=== PATIENT | female | born 1965 | race Caucasian/White ===

== ENCOUNTER 2020-05-18 12:12 | Outpatient (CLI) | payer MEDICARE, MEDICAID, SELFPAY ==
--- NOTE | 2020-05-18 | ECG_ITS ---
Measurements Intervals [place] Rate: 82 P: 71 [place]: 167 QRS: 21 QRSD: 108 T: 42 QT: 357 QTc: 419 Interpretive Statements SINUS RHYTHM INCOMPLETE RIGHT BUNDLE BRANCH BLOCK BASELINE WANDER- V2-V4 BORDERLINE ECG Electronically Signed On 05-18-2020 15:51:04 CDT by Tony Chen D.O.
--- NOTE | ~2020-05-18 | XR_ITS ---
EXAMINATION: XR chest 2V DATE: 05/18/2020 13:50 INDICATION: History of tobacco use TECHNIQUE: PA and lateral views of the chest are obtained. COMPARISON: 04/03/2016 FINDINGS: There are minimal airspace opacities of the left lower lobe. No pleural effusion is identif ied. There is no pneumothorax. The cardiomediastinal silhouette is normal. The visualized bones and s oft tissues are unremarkable. IMPRESSION: 1. Minimal airspace opacities left lung base, consistent with atelectasis versus pneumonia. Reviewed, dictated and finalized at location B. IMPRESSION: 1. Minimal airspace opacities left lung base, consistent with atelectasis versu s pneumonia.
== END 2020-05-18 12:13 | disposition home or self-care (01) ==
LOC: ANHCARD 12:20
PROVIDERS: PCP Physician Assistant; Visit Provider Physician Assistant
DX: Z01.818 Encounter for other preprocedural examination (principal); R91.8 Other nonspecific abnormal finding of lung field; I45.10 Unspecified right bundle-branch block
CPT/HCPCS: 71046; 93005

== ENCOUNTER 2022-04-18 06:25 | Inpatient (IN) | payer MEDICARE, MEDICAID, SELFPAY ==
[2022-04-18] VITALS (31 sets, daily range): BP systolic 101–198; BP diastolic 27–175; PULSE 88–107; RESP 15–26; TEMP 36.4–37; O2SAT 93–100
--- NOTE | ~2022-04-18 | CT_ITS ---
EXAMINATION: CT brain wo con DATE: 04/18/2022 09:49 INDICATION: Head injury. Overdose. TECHNIQUE: Computed tomography (CT) of the head was performed without intravenous contrast. The mA wa s adjusted according to patient size. Iterative reconstruction technique was employed. Exam dose: 60 5.33 mGy-cm total exam DLP. COMPARISON: 04/07/2018 MRI brain/brainstem 03/28/2016 CT brain FINDINGS: No intracranial mass lesion or hemorrhage or cerebrovascular accident. No midline shift or mass effect. Normal ventricular size. Gregorio-white matter differentiation. No subdural or epidural shania ana. No fracture or bone destruction of the cranial vault. Included paranasal sinuses and the mastoid air cells are normally developed and aerated. IMPRESSION: No significant abnormality Reviewed, dictated and finalized at Location [facility]. Reviewed, dictated and finalized at location B. IMPRESSION: No significant abnormality
--- NOTE | 2022-04-18 06:29 | PC.NURSE ---
Spoke with Emerson at Poison Control . Recommends basic tox levels plus CK level and EKG. States also Benzo's for agitation and seizures. Does not recommends charcoal to be given at this time.
--- NOTE | 2022-04-18 06:34 | ECG_ITS ---
Measurements Intervals [place] Rate: 99 P: 58 [place]: 140 QRS: -9 QRSD: 109 T: 47 QT: 379 QTc: 487 Interpretive Statements SINUS RHYTHM POSSIBLE LEFT ATRIAL ENLARGEMENT [-0.1mV P WAVE IN V1/V2] LOW QRS VOLTAGE IN PRECORDIAL LEADS [QRS DEFLECTION < 1.0 mV IN CHEST LEADS] COMPARED TO ECG 05/18/2020 13:28:45 NO SIGNIFICANT CHANGES Electronically Signed On 04-18-2022 18:18:33 CDT by Pattie Woo M.D.
--- NOTE | 2022-04-18 06:39 | ED.GENADULT ---
HPI - General Adult General Chief complaint: Overdose <Tejas Santana MD - Last Filed: 04/19/22 00:03> Stated complaint: took 60 tylenols <Tejas Santana MD - Last Filed: 04/19/22 00:03> Time Seen by Provider: 04/18/22 06:31 <Tejas Santana MD - Last Filed: 04/19/22 00:03> History of Present Illness HPI narrative: 56-year-old female presents to the emergency department for evaluation for psych eval and for a suspected intentional overdose of Fioricet. Patient states that she took 60 Fioricet because she was having a headache secondary to a ground-level fall. Patient reports she took the Fioricet approximate 1 hour prior to arrival. Butalbital/acetaminophen/caffeine 50/300/40 x 60 pills is 18 G of tylenol. <Tejas Santana MD - Last Filed: 04/19/22 00:03> Related Data Home medications: Home Medications Medication Instructions Recorded Confirmed albuterol sulfate 90 mcg/actuation inhalation 04/18/22 aerosol inhaler benztropine 2 mg tablet mg 04/18/22 buspirone 15 mg tablet mg 04/18/22 zyluflzcxk-clcehunwasjdw-sydjgzux tablet 04/18/22 50 mg-325 mg-40 mg tablet chlorpromazine 200 mg tablet mg 04/18/22 chlorpromazine 25 mg tablet mg 04/18/22 cyclobenzaprine 10 mg tablet mg 04/18/22 desipramine 150 mg tablet mg 04/18/22 ezetimibe 10 mg tablet mg 04/18/22 fluticasone 250 mcg-salmeterol 50 inhalation 04/18/22 mcg/dose blistr powdr for inhalation (Advair Diskus) gabapentin 300 mg capsule mg 04/18/22 hydrocodone 10 mg-acetaminophen tablet 04/18/22 325 mg tablet icosapent ethyl 1 gram capsule g PO 04/18/22 (Vascepa) prazosin 5 mg capsule mg 04/18/22 <Tejas Santana MD - Last Filed: 04/19/22 00:03> Allergies/adverse reactions: Allergies Allergy/AdvReac Type Severity Reaction Status Date / Time amoxicillin [From Augmentin] Allergy Hives Verified 09/27/20 12:50 asenapine [From Saphris] Allergy Hives Verified 09/27/20 12:50 bacitracin Allergy Rash Verified 09/27/20 12:50 [From Neosporin ([id number])] clavulanic acid Allergy Hives Verified 09/27/20 12:50 [From Augmentin] erythromycin base Allergy Hives Verified 09/27/20 12:50 haloperidol [From Haldol] Allergy Swelling Verified 09/27/20 12:50 of Lip/Tongue/Throat latex Allergy Rash Verified 09/27/20 12:50 neomycin Allergy Rash Verified 09/27/20 12:50 [From Neosporin ([id number])] olanzapine [From Zyprexa] Allergy Swelling Verified 09/27/20 12:50 of Lip/Tongue/Throat polymyxin B Allergy Rash Verified 09/27/20 12:50 [From Neosporin ([id number])] risperidone [From Risperdal] Allergy Hives Verified 09/27/20 12:50 tramadol [From Ultram] Allergy Rash Verified 09/27/20 12:50 ciprofloxacin AdvReac Vomiting Verified 09/27/20 12:50 ibuprofen AdvReac Vomiting Verified 09/27/20 12:50 grass Allergy Hives Uncoded 09/27/20 12:50 Steriod AdvReac Agitated Uncoded 09/27/20 12:50 <Tejas Santana MD - Last Filed: 04/19/22 00:03> Review of Systems Review of Systems: ROS unobtainable: Yes unobtainable due to medical condition <Tejas Santana MD - Last Filed: 04/19/22 00:03> [facility] Social History Social History: Social History Smoking packs per day: 2 Smoking cigarettes per day: 40.0 Years smoked: 44 Smoking pack-years: 88.00 Smoking status: Current every day smoker Alcohol intake: unknown Substance use: unknown Substance use type: prescription drug Spiritual care concerns: No <Tejas Santana MD - Last Filed: 04/19/22 00:03> Exam Narrative: APPEARANCE: Patient alert but combative HEAD: normocephalic, atraumatic. EYES: PERRLA/EOMI, conjunctivae clear. NOSE: Normal no drainage EARS:TMS clear with good light reflex. THROAT: Pharynx clear, no exudate. NECK: Supple. No adenopathy, no masses. RESPIRATORY: Airway patent, respirations nonlabored. Clear to auscultation bilaterally, no rales, rhonchi, w
[2022-04-18 06:53] LABS: Basophils Percent Auto 0.3 % (0.2-1.2); Eosinophils Absolute Auto 0.2 K/mm3 (0-0.3); Eosinophils Percent Auto 1.6 % (0-4.4); Hematocrit 41.8 % (37.0-47.0); Hemoglobin 13.3 g/dL (12.0-15.0); Immature Granulocyte Absolute 0.04 K/mm3 (0.00-0.031); Immature Granulocyte Percent A 0.4 % (0-0.5); Lymphocytes Absolute Auto 2.11 K/mm3 (0.9-3.2); Lymphocytes Percent Auto 19.6 % (18.3-44.2); Mean Corpuscular HGB Conc 31.8 g/dl (32-36); Mean Corpuscular Hemoglobin 33.5 pg (26-34); Mean Corpuscular Volume 105.3 fl (80-100); Mean Platelet Volume 9.2 fl (7.4-10.4); Monocytes Percent Auto 8.9 % (2.6-8.5); Neutrophils Absolute Auto 7.5 K/mm3 (1.3-6.7); Neutrophils Percent Auto 69.2 % (45.5-73.1); Platelet Count Result 306 k/mm3 (150-375); Red Blood Count 3.97 M/mm3 (4.2-5.4); Red Cell Distribution Width 15.4 % (11.5-14.5); White Blood Count 10.8 K/mm3 (4.5-10.0)
[2022-04-18 07:04] LABS: Appearance Urine Slightly Cloudy (Clear); Bilirubin Urine 1+ (Negative); Blood Urine Negative (Negative); Color Urine Yellow (Yellow); Glucose Urine UA Negative (Negative); Ketones Urine Negative (Negative); Leukocyte Esterase Ur Negative LEU/UL (Negative); Nitrate Urine Positive (Negative); Protein Urine Negative (Negative); Urobilinogen Urine 0.2 mg/dL (<2.0); pH Urine 6.5 (5.0-9.0)
[2022-04-18 07:05] LABS: Bacteria Urine Trace /hpf; Creatine Kinase 76 U/L (30-135); Mucus Urine Rare /lpf; RBC Urine 0-2 /hpf (0-2)
[2022-04-18 07:05] LABS: Lactic Acid Reflex 1.3 mmol/L (0.7-2.0)
[2022-04-18 07:06] LABS: Add Urine Microscopic? YES
[2022-04-18 07:09] LABS: Amphetamine Screen Urine Negative (Negative); Barbiturate Screen Urine Positive (Negative); Benzodiazepines Screen Urine Negative (Negative); Cannabinoid Screen Urine Negative (Negative); Cocaine Screen Urine Negative (Negative); Methadone Screen Urine Negative (Negative); Opiate Screen Urine Negative (Negative); Phencyclidine Screen Urine Negative (Negative)
[2022-04-18] MEDS: ACETYLCYSTEINE IV 10,500 MG in DEXTROSE 5% IN WATER 200 ML 252.5 MG IVPB (07:18)
[2022-04-18 07:30] LABS: Acetaminophen 42 ug/mL (10-30); Ethanol < 10 mg/dL (<10); Salicylate < 1.0 mg/dL (2-20)
[2022-04-18 07:32] LABS: Alanine Aminotransferase 25 U/L (6-35); Albumin Level 4.1 g/dL (3.5-5.1); Alkaline Phosphatase 101 U/L (38-126); Anion Gap 6 mmol/L (8-16); Aspartate Amino Transferase 29 U/L (14-36); Bilirubin,Total 0.5 mg/dL (0.2-1.3); Blood Urea Nitrogen 12 mg/dL (7-17); Calcium 8.8 mg/dL (8.4-10.2); Carbon Dioxide 28 mmol/L (22-30); Chloride 107 mmol/L (98-107); Estimated CRCL calculation 81 ml/min; Estimated Glomerular Filt Rate > 60; Glucose 106 mg/dL (65-110); Potassium 3.7 mmol/L (3.4-5.0); Sodium 141 mmol/L (137-145)
[2022-04-18 07:41] LABS: SARS-CoV-2 RNA PCR Negative
[2022-04-18] MEDS: LORazepam INJ (*CRX) 2 MG/ML VIAL 1 MG IV PUSH ×2 (07:47→19:47)
[2022-04-18] MEDS: LORazepam INJ (*CRX) 2 MG/ML VIAL IV PUSH ×2 (08:14→23:32)
--- NOTE | 2022-04-18 08:30 | PC.NURSE ---
[facility] verified pt med list and list updated in our system.
--- NOTE | 2022-04-18 08:33 | PC.NURSE ---
Emerson @ Poison Control recommends us to redraw her labs @ 0930 (4 hours from ingestion - tylenol level), and to complete the full 21 hour course of the acetylcysteine.
[2022-04-18 08:36] LABS: Glucose Point of Care 133 mg/dl (65-105)
[2022-04-18] MEDS: chlorproMAZINE HCL INJ 50 MG/2 ML AMP IM ×2 (08:49→22:02)
--- NOTE | 2022-04-18 09:05 | PC.NURSE ---
Bilateral ankle soft restraints removed at this time.
--- NOTE | 2022-04-18 10:06 | PC.NURSE ---
Sister Addie called for an update [phone].
--- NOTE | 2022-04-18 10:32 | PC.NURSE ---
Right Soft wrist restraint removed at this time.
--- NOTE | 2022-04-18 10:41 | PC.NURSE ---
This nurse removed pt left wrist restraint at this time.
[2022-04-18 11:00] LABS: Acetaminophen 12 ug/mL (10-30)
--- NOTE | 2022-04-18 12:04 | ECG_ITS ---
Measurements Intervals [place] Rate: 40 P: [place]: 0 QRS: 114 QRSD: 156 T: -83 QT: 504 QTc: 414 Interpretive Statements SLOW JUNCTIONAL RHYTHM VERSUS SLOW ATRIAL FIBRILLATION FREQUENT PVCS MARKED RIGHT AXIS DEVIATION [QRS AXIS > 100] RIGHT BUNDLE BRANCH BLOCK [120+ ms QRS DURATION, UPRIGHT V1, 40+ ms S IN I/aVL/V4/V5/V6] ST DEVIATION AND MODERATE T-WAVE ABNORMALITY, CONSIDER LATERAL ISCHEMIA [-0.1+ mV T WAVE IN I/aVL/V5/V6] ST DEVIATION AND MODERATE T-WAVE ABNORMALITY, CONSIDER INFERIOR ISCHEMIA [-0.1+ mV T WAVE IN II/aVF] COMPARED TO ECG 04/18/2022 10:15:13 RIGHT BUNDLE-BRANCH BLOCK NOW PRESENT NOTE: THE NAME ON THIS EKG MAY BE MISLABELED. THIS MAY NOT BE THE EKG OF MEERA ANGUIANO, IT APPEARS SIMILAR TO THE EKG OF A DIFFERENT ER PATIENT TODAY. TRIED TO CORRECT THIS ERROR IN THE ER. Electronically Signed On 04-18-2022 18:35:14 CDT by Pattie Woo M.D.
[2022-04-18 13:58] LABS: Alanine Aminotransferase 25 U/L (6-35); Alkaline Phosphatase 81 U/L (38-126); Ammonia 16 umol/L (9-30); Anion Gap 12 mmol/L (8-16); Aspartate Amino Transferase 25 U/L (14-36); Bilirubin,Total 0.6 mg/dL (0.2-1.3); Blood Urea Nitrogen 9 mg/dL (7-17); Calcium 8.8 mg/dL (8.4-10.2); Carbon Dioxide 22 mmol/L (22-30); Chloride 104 mmol/L (98-107); Estimated CRCL calculation 116 ml/min; Estimated Glomerular Filt Rate > 60; Glucose 110 mg/dL (65-110); Phosphorus 2.7 mg/dL (2.5-4.5); Potassium 3.3 mmol/L (3.4-5.0); Sodium 138 mmol/L (137-145)
--- NOTE | 2022-04-18 14:21 | ADMGEN ---
This patient, Mahnaz Oseguera, was admitted to Intensive Care Unit-7. Patient/family oriented to hospital policies and general routines including ID bracelet, bed and alarms, visiting hours, pain management, procedures, bathroom and other care routines, personal items, smoking policy, room service/diet, and visiting hours. Information on how to activate the Rapid Response Team has been discussed. Patient/Family are encouraged to report perceived risks to care and to ask questions if they do not understand what they are told or what they should do.
--- NOTE | 2022-04-18 14:23 | PM.IMHP ---
H&P: HPI History of Present Illness Date/Time: 04/18/22 14:23 Chief Complaint: Tylenol toxicity Narrative: Greater than 45 minute spent reviewing chart, evaluating and treating the patient. 56-year-old female unknown past medical history. Presents with suspected intentional overdose of Fioricet. Patient is currently encephalopathic and unable to provide any history. Per ED documentation, patient states she took 60 pills of Fioricet because she was having a headache secondary to a ground level fall. She reported she took the Fioricet around 5:30 a.m. today. Calculated dose of Tylenol taken was 18 g. In ED, vitals stable. Labs remarkable for white count 10.8. INR 1, normal bicarbonate and no anion gap, normal lactate, normal LFTs. CT head negative for acute intracranial pathology. Patient given 2 doses of NAC. Due to agitation patient was given a total of 3 mg Ativan. Patient seen in the ICU lethargic, however opens eyes to name and follows commands. Review of Systems Review of Systems: Unable to obtain due to encephalopathy PMFSH Social History Social History Smoking packs per day: 2 Smoking cigarettes per day: 40.0 Years smoked: 44 Smoking pack-years: 88.00 Smoking status: Current every day smoker Tobacco type: cigarettes Substance use type: prescription drug Spiritual care concerns: No Meds Home Medications and Allergies Home Medications Medication Instructions Recorded Confirmed Type albuterol sulfate 90 mcg/actuation inhalation 04/18/22 History aerosol inhaler benztropine 2 mg tablet mg 04/18/22 History buspirone 15 mg tablet mg 04/18/22 History tknmdsxsqi-cfjmhywouteia-wufujplx tablet 04/18/22 History 50 mg-325 mg-40 mg tablet chlorpromazine 200 mg tablet mg 04/18/22 History chlorpromazine 25 mg tablet mg 04/18/22 History cyclobenzaprine 10 mg tablet mg 04/18/22 History desipramine 150 mg tablet mg 04/18/22 History ezetimibe 10 mg tablet mg 04/18/22 History fluticasone 250 mcg-salmeterol 50 inhalation 04/18/22 History mcg/dose blistr powdr for inhalation (Advair Diskus) gabapentin 300 mg capsule mg 04/18/22 History hydrocodone 10 mg-acetaminophen tablet 04/18/22 History 325 mg tablet icosapent ethyl 1 gram capsule g PO 04/18/22 History (Vascepa) prazosin 5 mg capsule mg 04/18/22 History Allergies Allergy/AdvReac Type Severity Reaction Status Date / Time amoxicillin [From Augmentin] Allergy Hives Verified 09/27/20 12:50 asenapine [From Saphris] Allergy Hives Verified 09/27/20 12:50 bacitracin Allergy Rash Verified 09/27/20 12:50 [From Neosporin ([id number])] clavulanic acid Allergy Hives Verified 09/27/20 12:50 [From Augmentin] erythromycin base Allergy Hives Verified 09/27/20 12:50 haloperidol [From Haldol] Allergy Swelling Verified 09/27/20 12:50 of Lip/Tongue/Throat latex Allergy Rash Verified 09/27/20 12:50 neomycin Allergy Rash Verified 09/27/20 12:50 [From Neosporin ([id number])] olanzapine [From Zyprexa] Allergy Swelling Verified 09/27/20 12:50 of Lip/Tongue/Throat polymyxin B Allergy Rash Verified 09/27/20 12:50 [From Neosporin ([id number])] risperidone [From Risperdal] Allergy Hives Verified 09/27/20 12:50 tramadol [From Ultram] Allergy Rash Verified 09/27/20 12:50 ciprofloxacin AdvReac Vomiting Verified 09/27/20 12:50 ibuprofen AdvReac Vomiting Verified 09/27/20 12:50 grass Allergy Hives Uncoded 09/27/20 12:50 Steriod AdvReac Agitated Uncoded 09/27/20 12:50 Vital Signs Vital Signs - 24 hr 04/18/22 06:22 04/18/22 06:43 04/18/22 06:45 Temperature 98.0 F Pulse Rate 88 90 Respiratory Rate 18 22 H 16 Blood Pressure 119/70 Pulse Oximetry 97 Oxygen Delivery Room Air 04/18/22 06:47 04/18/22 07:10 04/18/22 07:15 Temperature Pulse Rate 90 89 98 Respiratory Rate 19 24 H 19 Blood Pressure 101/27 L Pulse Oximetry 97 Oxygen D
[2022-04-18] MEDS: POTASSIUM CHLORIDE INJ 40 MEQ in SODIUM CHLORIDE 0.9% IV 500 ML 130 MEQ IVPB (14:41)
[2022-04-18] MEDS: LACTATED RINGERS 1,000 ML 100 ML IV CONT (14:41)
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
[2022-04-19] VITALS (24 sets, daily range): BP systolic 107–146; BP diastolic 62–90; PULSE 67–99; RESP 16–28; TEMP 36.1–36.6; O2SAT 93–100
[2022-04-19] MEDS: dexmedeTOMIDine 400 MCG/100 ML 400 MCG/100 ML BAG IV CONT (00:08)
[2022-04-19] MEDS: SODIUM CHLORIDE 0.9% IV 1,000 ML 100 ML IV CONT ×3 (00:11→19:49)
[2022-04-19 05:01] LABS: Basophils Percent Auto 0.4 % (0.2-1.2); Eosinophils Absolute Auto 0.1 K/mm3 (0-0.3); Eosinophils Percent Auto 1.4 % (0-4.4); Hematocrit 40.6 % (37.0-47.0); Hemoglobin 13.2 g/dL (12.0-15.0); Immature Granulocyte Absolute 0.02 K/mm3 (0.00-0.031); Immature Granulocyte Percent A 0.3 % (0-0.5); Lymphocytes Absolute Auto 2.02 K/mm3 (0.9-3.2); Lymphocytes Percent Auto 25.3 % (18.3-44.2); Mean Corpuscular HGB Conc 32.5 g/dl (32-36); Mean Corpuscular Hemoglobin 34.3 pg (26-34); Mean Corpuscular Volume 105.5 fl (80-100); Mean Platelet Volume 9.3 fl (7.4-10.4); Monocytes Absolute Auto 0.8 K/mm3 (0.1-0.6); Monocytes Percent Auto 9.9 % (2.6-8.5); Neutrophils Percent Auto 62.7 % (45.5-73.1); Platelet Count Result 299 k/mm3 (150-375); Red Blood Count 3.85 M/mm3 (4.2-5.4); Red Cell Distribution Width 15.4 % (11.5-14.5)
[2022-04-19 05:13] LABS: INR 1.1; Prothrombin Time 13.5 Seconds (11.1-14.7)
[2022-04-19 05:14] LABS: Anion Gap 8 mmol/L (8-16); Blood Urea Nitrogen 6 mg/dL (7-17); Calcium 8.8 mg/dL (8.4-10.2); Carbon Dioxide 24 mmol/L (22-30); Chloride 108 mmol/L (98-107); Estimated CRCL calculation 116 ml/min; Estimated Glomerular Filt Rate > 60; Glucose 95 mg/dL (65-110); Potassium 3.6 mmol/L (3.4-5.0); Sodium 140 mmol/L (137-145)
--- NOTE | 2022-04-19 07:47 | PC.NURSE ---
Updated patient's mother on plan of care and patient condition.
[2022-04-19] MEDS: ENOXAPARIN 40 MG/0.4 ML SYRINGE SUB-Q (09:36)
--- NOTE | 2022-04-19 11:24 | PM.IMPN ---
Progress Note: A&P Assessment and Plan (1) Suicide attempt: Code(s): T14.91XA - Suicide attempt, initial encounter Status: Acute (2) Back pain: Code(s): M54.9 - Dorsalgia, unspecified Status: Acute (3) Electrolyte abnormality: Code(s): E87.8 - Other disorders of electrolyte and fluid balance, not elsewhere classified Status: Acute (4) Bipolar mood disorder: Code(s): F31.9 - Bipolar disorder, unspecified Status: Acute (5) Overdose on Tylenol: Code(s): T39.1X1A - Poisoning by 4-Aminophenol derivatives, accidental (unintentional), initial encounter Status: Acute (6) Agitation: Code(s): R45.1 - Restlessness and agitation Status: Acute Plan 04/18/22 Acetaminophen overdose -unclear if this was truly a suicidal ideation.? Unable to obtain medical history from patient, however reviewing her medications in the chart appears patient does have some psychiatric issues.? Post 2 doses of NAC.? LFTs normal, PT INR normal.? Continue to monitor in ICU Encephalopathy -suspect secondary to Ativan use.? Hold off on further sedating medications for now.? Haldol for agitation if needed.? Ammonia normal 04/19/22 patient remains in ICU Consult psych Continue Precedex drip per short filler bunch machine operator Recommendations appreciated Subjective Date/time seen: 04/19/22 11:24 Patient lying in bed speech is garbled on Precedex drip unable to give any meaningful history becomes agitated cursing declines physical examination and refuses to participate in questioning. Review of Systems Review of Systems: ROS unobtainable: Yes unobtainable due to mental status Exam Narrative: GEN: NAD, uncooperative, Agitated HEENT: NCAT, MMM, EOMI Neck: no JVD Ext: moves all, no cyanosis, no clubbing, no edema Neuro: slow cognition, moves all extremities equally Psych: unable to assess Objective Data Vital Signs Vital Signs: Vital Signs - 24 hr 04/18/22 12:00 04/18/22 12:00 04/18/22 12:38 Temperature 98.2 F Pulse Rate 100 99 Respiratory Rate 24 H Blood Pressure 117/69 Pulse Oximetry 96 100 Oxygen Delivery Room Air Oxygen Flow Rate 04/18/22 14:00 04/18/22 16:00 04/18/22 16:00 Temperature 98.6 F Pulse Rate 96 101 H 100 Respiratory Rate 20 23 H Blood Pressure 106/88 106/88 Pulse Oximetry 100 98 Oxygen Delivery Oxygen Flow Rate 04/18/22 16:00 04/18/22 16:00 04/18/22 18:00 Temperature Pulse Rate 100 100 100 Respiratory Rate 23 H Blood Pressure Pulse Oximetry 98 Oxygen Delivery Room Air Oxygen Flow Rate 04/18/22 20:00 04/18/22 20:00 04/18/22 20:00 Temperature 97.5 F L Pulse Rate 104 H 100 106 H Respiratory Rate 23 H 23 H Blood Pressure 125/76 Pulse Oximetry 97 96 Oxygen Delivery Room Air Oxygen Flow Rate 04/18/22 22:00 04/19/22 00:08 04/19/22 00:08 Temperature Pulse Rate 106 H 98 99 Respiratory Rate 28 H 28 H Blood Pressure Pulse Oximetry Oxygen Delivery Oxygen Flow Rate 04/19/22 00:14 04/19/22 00:00 04/19/22 00:37 Temperature 97.7 F Pulse Rate 99 98 82 Respiratory Rate 28 H 28 H 24 H Blood Pressure 127/72 Pulse Oximetry 96 96 Oxygen Delivery Room Air Oxygen Flow Rate 04/19/22 00:00 04/19/22 02:00 04/19/22 02:00 Temperature Pulse Rate 91 84 82 Respiratory Rate 17 Blood Pressure 107/62 Pulse Oximetry 93 Oxygen Delivery Oxygen Flow Rate 04/19/22 03:38 04/19/22 04:00 04/19/22 04:00 Temperature 97.7 F Pulse Rate 85 81 81 Respiratory Rate 16 18 Blood Pressure 121/74 Pulse Oximetry 98 98 Oxygen Delivery Nasal Cannula Oxygen Flow Rate 2 04/19/22 06:00 04/19/22 06:00 04/19/22 07:41 Temperature 97.7 F Pulse Rate 72 69 82 Respiratory Rate 17 24 H Blood Pressure 107/67 116/73 Pulse Oximetry 99 95 Oxygen Delivery Oxygen Flow Rate 04/19/22 07:20 04/19/22 08:00 04/19/22 08:00 Temperature Pulse Rate 8
[2022-04-19] MEDS: dexmedeTOMIDine 400 MCG/100 ML 400 MCG/100 ML BAG 5.31 MCG IV CONT (11:50)
[2022-04-19] MEDS: oxyCODONE HCL (*CRX) 5 MG TAB IR PO ×2 (12:20→21:52)
[2022-04-19 12:40] LABS: Alanine Aminotransferase 24 U/L (6-35); Albumin Level 3.5 g/dL (3.5-5.1); Alkaline Phosphatase 84 U/L (38-126); Aspartate Amino Transferase 34 U/L (14-36); Bilirubin,Total 0.6 mg/dL (0.2-1.3)
--- NOTE | 2022-04-19 12:45 | WPDCNINT ---
Assessment and Plan Assessment and plan (1) Overdose on Tylenol: Code(s): T39.1X1A - Poisoning by 4-Aminophenol derivatives, accidental (unintentional), initial encounter Status: Acute Assessment and Plan: Patient took 60 pills of Fioricet although details are questionable She was treated with course of N acetylcysteine Her LFTs remain normal including ammonia Her INR remained normal Tylenol level has normalized Continue to monitor (2) Suicide attempt: Code(s): T14.91XA - Suicide attempt, initial encounter Status: Acute Assessment and Plan: Sitter at bedside (3) Shoulder pain: Code(s): M25.519 - Pain in unspecified shoulder Status: Acute Assessment and Plan: Chronic pain Check shoulder x-ray P.r.n. oxycodone (4) Bipolar mood disorder: Code(s): F31.9 - Bipolar disorder, unspecified Status: Acute Assessment and Plan: Consult psychiatry (5) Agitation: Code(s): R45.1 - Restlessness and agitation Status: Acute Assessment and Plan: Continue Precedex Avoid benzodiazepine Add Seroquel (6) Electrolyte abnormality: Code(s): E87.8 - Other disorders of electrolyte and fluid balance, not elsewhere classified Status: Acute Assessment and Plan: Replace potassium (7) Urinary tract infection: Code(s): N39.0 - Urinary tract infection, site not specified Status: Acute Assessment and Plan: Check urine culture Start Rocephin Plan DVT prophylaxis -Lovenox Nutrition -advance diet Quirk Sander Consult Note Consult date: 04/19/22 Reason for consult: Agitation, delirium HPI: Mahnaz Oseguera is a 56 year old female with bipolar mood disorder who was admitted on 04/18 for suspected intentional overdose of Fioricet. Patient reported in the ED that she took 60 pills of Fioricet prior to arrival for headache. Patient was started on acetylcysteine for suspected acetaminophen overdose and was admitted to the hospital patient was given Thorazine for agitation. Patient was admitted on the floor and suicidal precaution were placed. Patient was agitated and combative with the staff. Has multiple allergies listed limiting what medications could be given to. Overnight patient who who was combative and agitated requiring 4 point restraints. Hence patient was started on Precedex infusion and transferred to ICU level of care. This morning patient continues to be on Precedex infusion at low rate. She is lot more calm continues to be confused and agitated. She is a poor historian. She admits that she has bipolar mood disorder. Told me that she does want to but she was unable to give any meaningful history about her taking Fioricet. She answers no to most questions when asked about review of systems. She states she wants to see her mom. She is often tearful and starts crying in between the conversation. Patient often became agitated and started using abusive and expletive language. Review of system was only positive for pain in right shoulder and under the time she mentioned the pain is all over her body. She states that she hurt her shoulders many years ago and has had pain in her shoulder since then. All other systems were reviewed and were negative I spoke to patient's mother by phone and she told me that patient had been agitated and argumentative with her for last few days. She did not see her taking all the pills but she did take some pills. She states that she was crawling on dropping the pills on the floor and trying to pick them up and put them in her mouth. She states that she has been fighting with her for last few days about little things. Mother states the patient has attempted suicide in the past by taking drug overdose. Review of Systems Review of Systems: All systems reviewed & are unremarkable except as noted in HPI and below (Limited review of system was obtained as above.) [facility]
--- NOTE | 2022-04-19 19:00 | PC.NURSE ---
Patient yelling out. QUYEN Gustafson entered patient's room to see why patient was yelling. He found patient's hassan in her hand with bulb still inflated with water. He asked patient if he could make sure she wasn't bleeding and patient refused.
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
[2022-04-20] VITALS (17 sets, daily range): BP systolic 100–151; BP diastolic 53–90; PULSE 62–97; RESP 13–22; TEMP 35.8–36.6; O2SAT 96–100
[2022-04-20] MEDS: dexmedeTOMIDine 400 MCG/100 ML 400 MCG/100 ML BAG 7.08 MCG IV CONT (02:29)
--- NOTE | 2022-04-20 04:00 | PC.NURSE ---
Patient stated she needed to go to the bathroom. Attempted to place patient on a bedpan and patient uncooperative and attempting to stand and turn around in bed. Patient belligerent and combative. Patient assisted to lying position by staff. Patient placed on bedpan by nurse. Patient then removed bedpan and urinated on the bed.
--- NOTE | 2022-04-20 04:30 | PC.NURSE ---
Patient yelling out, I'm going to kill you. Patient stated she was going to pee on this RN. Patient unable to be redirected.
[2022-04-20] MEDS: SODIUM CHLORIDE 0.9% IV 1,000 ML 100 ML IV CONT ×2 (05:21→19:07)
--- NOTE | 2022-04-20 08:05 | PM.IMPN ---
Progress Note: A&P Assessment and Plan (1) Suicide attempt: Code(s): T14.91XA - Suicide attempt, initial encounter Status: Acute (2) Back pain: Code(s): M54.9 - Dorsalgia, unspecified Status: Acute (3) Electrolyte abnormality: Code(s): E87.8 - Other disorders of electrolyte and fluid balance, not elsewhere classified Status: Acute (4) Bipolar mood disorder: Code(s): F31.9 - Bipolar disorder, unspecified Status: Acute (5) Overdose on Tylenol: Code(s): T39.1X1A - Poisoning by 4-Aminophenol derivatives, accidental (unintentional), initial encounter Status: Acute (6) Agitation: Code(s): R45.1 - Restlessness and agitation Status: Acute Plan 04/18/22 Acetaminophen overdose -unclear if this was truly a suicidal ideation.? Unable to obtain medical history from patient, however reviewing her medications in the chart appears patient does have some psychiatric issues.? Post 2 doses of NAC.? LFTs normal, PT INR normal.? Continue to monitor in ICU Encephalopathy -suspect secondary to Ativan use.? Hold off on further sedating medications for now.? Haldol for agitation if needed.? Ammonia normal 04/19/22 patient remains in ICU Consult psych Continue Precedex drip per garment presser Recommendations appreciated 04/20/22 off gtt pt requesting more pain meds, this is declined at this time cont oxy PRN waiting for evaluation x dc planning Subjective Date/time seen: 04/20/22 08:05 calmer today but still agitated and crying Exam Narrative: GEN: NAD, intermittently cooperative, Agitated HEENT: NCAT, MMM, EOMI Neck: no JVD Ext: moves all, no cyanosis, no clubbing, no edema Neuro: Cn intact no focal neuro deficits noted Psych: labile affect Objective Data Vital Signs Vital Signs: Vital Signs - 24 hr 04/19/22 10:00 04/19/22 10:00 04/19/22 10:00 Temperature Pulse Rate 81 79 81 Respiratory Rate 16 16 Blood Pressure 128/73 Pulse Oximetry 98 Oxygen Delivery 04/19/22 11:00 04/19/22 11:50 04/19/22 11:58 Temperature Pulse Rate 86 80 80 Respiratory Rate 20 18 24 H Blood Pressure 129/70 Pulse Oximetry 100 Oxygen Delivery 04/19/22 12:00 04/19/22 12:00 04/19/22 14:00 Temperature Pulse Rate 67 79 Respiratory Rate Blood Pressure Pulse Oximetry 100 Oxygen Delivery Room Air 04/19/22 14:00 04/19/22 15:45 04/19/22 16:00 Temperature Pulse Rate 79 73 Respiratory Rate 17 Blood Pressure 146/88 H Pulse Oximetry 95 96 Oxygen Delivery Room Air 04/19/22 16:00 04/19/22 16:00 04/19/22 18:00 Temperature 97.8 F Pulse Rate 75 76 Respiratory Rate 18 Blood Pressure 116/90 Pulse Oximetry 96 97 Oxygen Delivery Room Air 04/19/22 18:00 04/19/22 19:26 04/19/22 20:00 Temperature 97.0 F L Pulse Rate 76 81 71 Respiratory Rate 19 24 H 22 H Blood Pressure 133/75 107/82 Pulse Oximetry 98 96 Oxygen Delivery 04/19/22 19:59 04/19/22 20:00 04/19/22 20:00 Temperature Pulse Rate 75 77 Respiratory Rate 20 Blood Pressure Pulse Oximetry Oxygen Delivery Room Air 04/19/22 22:00 04/19/22 22:00 04/20/22 00:00 Temperature Pulse Rate 81 81 72 Respiratory Rate 19 Blood Pressure 127/77 Pulse Oximetry 99 Oxygen Delivery 04/20/22 00:00 04/20/22 00:00 04/20/22 00:00 Temperature 97.0 F L Pulse Rate 74 74 Respiratory Rate 15 15 Blood Pressure 111/67 Pulse Oximetry Oxygen Delivery Room Air 04/20/22 01:05 04/20/22 02:00 04/20/22 02:00 Temperature Pulse Rate 68 68 68 Respiratory Rate 13 14 Blood Pressure 133/71 Pulse Oximetry 98 Oxygen Delivery 04/20/22 02:29 04/20/22 04:00 04/20/22 04:00 Temperature Pulse Rate 66 89 Respiratory Rate 22 H Blood Pressure Pulse Oximetry Oxygen Delivery Room Air 04/20/22 04:00 04/20/22 06:00 04/20/22 06:00 Temperature 96.5 F L Pulse Rate 90 64
[2022-04-20 08:06] LABS: Basophils Percent Auto 0.3 % (0.2-1.2); Eosinophils Absolute Auto 0.2 K/mm3 (0-0.3); Eosinophils Percent Auto 2.3 % (0-4.4); Hemoglobin 12.8 g/dL (12.0-15.0); Immature Granulocyte Absolute 0.03 K/mm3 (0.00-0.031); Immature Granulocyte Percent A 0.3 % (0-0.5); Lymphocytes Absolute Auto 1.78 K/mm3 (0.9-3.2); Lymphocytes Percent Auto 19.3 % (18.3-44.2); Mean Corpuscular Hemoglobin 33.7 pg (26-34); Mean Corpuscular Volume 105.3 fl (80-100); Mean Platelet Volume 9.2 fl (7.4-10.4); Monocytes Absolute Auto 0.9 K/mm3 (0.1-0.6); Monocytes Percent Auto 10.1 % (2.6-8.5); Neutrophils Absolute Auto 6.2 K/mm3 (1.3-6.7); Neutrophils Percent Auto 67.7 % (45.5-73.1); Platelet Count Result 286 k/mm3 (150-375); White Blood Count 9.2 K/mm3 (4.5-10.0)
[2022-04-20 08:15] LABS: Anion Gap 11 mmol/L (8-16); Blood Urea Nitrogen 8 mg/dL (7-17); Carbon Dioxide 18 mmol/L (22-30); Chloride 106 mmol/L (98-107); Estimated CRCL calculation 116 ml/min; Estimated Glomerular Filt Rate > 60; Glucose 76 mg/dL (65-110); Potassium 3.4 mmol/L (3.4-5.0); Sodium 135 mmol/L (137-145)
[2022-04-20 08:17] LABS: Prothrombin Time 13.1 Seconds (11.1-14.7)
[2022-04-20 08:19] LABS: Platelet Estimate Adequate (Adequate)
[2022-04-20 08:20] LABS: Anisocytosis 1+ (NORMAL); Atypical Lymphocytes Present; Macrocytosis 1+ (NORMAL)
[2022-04-20 08:43] LABS: Alanine Aminotransferase 23 U/L (6-35); Albumin Level 3.7 g/dL (3.5-5.1); Alkaline Phosphatase 97 U/L (38-126); Anion Gap 12 mmol/L (8-16); Aspartate Amino Transferase 37 U/L (14-36); Bilirubin,Total 0.7 mg/dL (0.2-1.3); Blood Urea Nitrogen 8 mg/dL (7-17); Calcium 8.7 mg/dL (8.4-10.2); Carbon Dioxide 18 mmol/L (22-30); Chloride 108 mmol/L (98-107); Estimated CRCL calculation 95 ml/min; Estimated Glomerular Filt Rate > 60; Glucose 77 mg/dL (65-110); Magnesium 1.8 mg/dL (1.6-2.3); Potassium 3.5 mmol/L (3.4-5.0); Sodium 138 mmol/L (137-145)
[2022-04-20] MEDS: ENOXAPARIN 40 MG/0.4 ML SYRINGE SUB-Q (09:40)
[2022-04-20] MEDS: oxyCODONE HCL (*CRX) 5 MG TAB IR PO ×4 (09:40→23:46)
[2022-04-20] MEDS: QUEtiapine FUMARATE 25 MG TABLET PO (09:40)
--- NOTE | 2022-04-20 11:24 | WPDINTPN ---
Progress Note: A&P Assessment and Plan (1) Overdose on Tylenol: Code(s): T39.1X1A - Poisoning by 4-Aminophenol derivatives, accidental (unintentional), initial encounter Status: Acute Assessment and Plan: Patient took 60 pills of Fioricet although details are questionable She was treated with course of N acetylcysteine Her LFTs remain normal including ammonia. Repeat labs today remained in normal range Her INR remained normal Tylenol level has normalized Continue to monitor (2) Suicide attempt: Code(s): T14.91XA - Suicide attempt, initial encounter Status: Acute Assessment and Plan: Sitter at bedside (3) Shoulder pain: Code(s): M25.519 - Pain in unspecified shoulder Status: Acute Assessment and Plan: Chronic pain I had ordered a shoulder x-ray but patient refused Continue P.r.n. oxycodone (4) Bipolar mood disorder: Code(s): F31.9 - Bipolar disorder, unspecified Status: Acute Assessment and Plan: I spoke to Dr. Santizo with Psychiatry. Patient is on multiple psychiatric medications including antipsychotics. He will evaluate patient today. I suspect patient will need inpatient psychiatric care. Records requested from her outpatient psychiatric provider (5) Agitation: Code(s): R45.1 - Restlessness and agitation Status: Acute Assessment and Plan: Precedex has been weaned off this morning. Will continue to monitor Avoid benzodiazepine I had ordered Seroquel but patient refused to take it last night (6) Electrolyte abnormality: Code(s): E87.8 - Other disorders of electrolyte and fluid balance, not elsewhere classified Status: Acute Assessment and Plan: Replace potassium (7) Urinary tract infection: Code(s): N39.0 - Urinary tract infection, site not specified Status: Acute Assessment and Plan: Pending urine culture Continue Rocephin. Will continue IV antibiotics until patient can consistently take p.o. pills Plan DVT prophylaxis -Lovenox Nutrition -regular diet Subjective Date/time seen: 04/20/22 11:24 Patient seen and examined this morning she is uncooperative. She states she feels she is in held, wants to and complains of pain all over the body. She refused x-ray of her shoulder she states she wants us to x-ray her all her body because she hurts all over her body. She refused some of her medication last night. Picks and chooses what she wants to take and refuses other pills. She is eating diet. Sitter is at bedside. Pulled out her Rich catheter. Was pulling on IVs hence had to be restrained. Unable to obtain any review of systems. Review of Systems Review of Systems: All systems reviewed & are unremarkable except as noted in HPI and below (Limited review of system was obtained as above.) Exam Narrative: General: Pt is alert awake and in NAD, poor hygiene Lungs/Chest: Trachea central Clear BS B/L, No crackles or wheezing. Cardiac: RRR. Normal S1 S2. No murmurs Circulation: Pedal pulses are intact and symmetrical. Abdomen: Normal bowel sounds.. Soft. NT. ND. Extremities: No clubbing, cyanosis or edema. Warm : Rich in place Neurologic: Awake Follows commands. Moves all 4 extremities PERRL AO x 0 not fully cooperative with exam Skin: No Rash Objective Data Vital Signs Vital Signs: Vital Signs - 24 hr 04/19/22 11:50 04/19/22 11:58 04/19/22 12:00 Temperature Pulse Rate 80 80 Respiratory Rate 18 24 H Blood Pressure 129/70 Pulse Oximetry 100 100 Oxygen Delivery Room Air 04/19/22 12:00 04/19/22 14:00 04/19/22 14:00 Temperature Pulse Rate 67 79 79 Respiratory Rate 17 Blood Pressure 146/88 H Pulse Oximetry 95 Oxygen Delivery 04/19/22 15:45 04/19/22 16:00 04/19/22 16:00 Temperature Pulse Rate 73 Respiratory Rate Blood Pressure Pulse Oximetry 96 96 Oxygen Delivery Room Air Room Air 04/19/22 16:00 04/19/22
--- NOTE | 2022-04-20 20:47 | WPDCNPSYCH ---
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 q.h.s.. She was also taking in addition to her Fioricet, hydrocodone both of which could have a potential drug drug interaction with the cyclobenzaprine. The patient's delirium seems to be clearing. The patient has a long history of multiple overdoses and has required in the past ventilatory support following an overdose she is also required hemodialysis after overdosing on lithium. She is at high risk of overdosing. Consequently, tricyclic antidepressants such as desipramine 300mg p.o. q.h.s. will be avoided. The patient reports a long history of bipolar disorder. However at time of interview insufficient evidence to support bipolar diagnosis is present. However her history of having been treated with lithium, Depakote, Tegretol, Lamictal, and Seroquel would be strongly suggestive that bipolar disorder should remain high in the differential diagnosis. The patient will be started on sertraline 25mg p.o. q.a.m. for her mixed anxious depressive disorder. When patient is discharged to home, her medications will be ordered in 7 days amounts with frequent refills. Avoiding prescribing medications and 90 day amounts will be strongly encouraged. Some of the patient's agitation may have also included an opiate withdrawal syndrome. She seems comparatively free of any withdrawal symptoms at time of interview. However she is also using oxycodone at this time. Future use of Suboxone for maintenance treatment of her opiate use disorder as well as for pain management will be considered. Until then, her drugs will be allowed to wash out and will undergo additional medical evaluation and management after which the patient should be transferred to [facility] inpatient Psychiatric Unit on my service. Plan: 1. Continue to allow the drugs to washout. As well as to continue medical evaluation and management 2. Transferred to inpatient psychiatric service of Dr. Santizo at [facility] when medically cleared for management of her mixed anxious/depressive syndrome. 3. Sertraline (Zoloft) 25mg p.o. q.a.m. for the target symptom of her mixed anxious depressive syndrome with a target dose of 50mg p.o. q.a.m. 4. Thorazine 100mg p.o. q.h.s. will be resumed from her home medication list. Her target symptom will be agitation. According to her veterinary poultry inspector report the patient had disorganized speech and likely was having a formal thought disorder of psychosis. Patient reports having been on most psychiatric medicines and having an intolerance for most anti psychotics. 5. Medical evaluation 6. Care coordination consultation to liaison patient is transferred [facility] when medically cleared. Reason for hospitalization: Patient is a 37-year-old lady admitted to the intensive care unit following an overdose on 64 tablets of Fioricet. Reason for Psychiatric consultation: Patient is a 37-year-old lady who psychiatric consultation for overdose on Fioricet, disorganized speech, and agitated delirium. History of present illness: Nurses report: The patient's delirium has improved markedly. She has become lucid and conversational. Her cognitive capacity has improved well. She is no longer agitated and has no evidence of psychosis. Quality: The patient states she does not remember what happened. She has been told from various sour
[2022-04-20] MEDS: chlorproMAZINE HCL 25 MG TABLET 100 MG PO (22:59)
[2022-04-21] VITALS (9 sets, daily range): BP systolic 108–133; BP diastolic 61–82; PULSE 81–90; RESP 13–25; TEMP 36.6–36.8; O2SAT 97–100
[2022-04-21] MEDS: oxyCODONE HCL (*CRX) 5 MG TAB IR PO ×4 (04:09→16:29)
[2022-04-21 04:22] LABS: Hemoglobin 12.1 g/dL (12.0-15.0); Mean Corpuscular HGB Conc 32.7 g/dl (32-36); Mean Corpuscular Hemoglobin 33.5 pg (26-34); Mean Corpuscular Volume 102.5 fl (80-100); Mean Platelet Volume 9.2 fl (7.4-10.4); Platelet Count Result 307 k/mm3 (150-375); Red Blood Count 3.61 M/mm3 (4.2-5.4); White Blood Count 7.1 K/mm3 (4.5-10.0)
[2022-04-21] MEDS: SODIUM CHLORIDE 0.9% IV 1,000 ML 100 ML IV CONT (04:22)
[2022-04-21 04:33] LABS: Cholesterol 194 mg/dL (0-200); HDL Direct 40 mg/dL; Magnesium 1.9 mg/dL (1.6-2.3); Triglycerides 143 mg/dL (<150)
[2022-04-21 04:44] LABS: LDL Cholesterol Direct 100 mg/dL
[2022-04-21 05:02] LABS: Vitamin D 25 Hydroxy 55.5 ng/mL
[2022-04-21 05:16] LABS: Hepatitis B Surface Antigen Negative (Negative)
[2022-04-21 05:22] LABS: HAV RESULT Negative (Negative); Hepatitis B Core IgM Result Negative (Negative)
[2022-04-21 05:29] LABS: HIV 1/2 Ab P24 Ag Result Negative (Negative)
[2022-04-21 05:40] LABS: Folic Acid 4.9 ng/mL (2.76->20)
[2022-04-21 06:01] LABS: Hepatitis C Virus Antibody Reactive (Negative)
--- NOTE | 2022-04-21 08:31 | WPDINTPN ---
Progress Note: A&P Assessment and Plan (1) Overdose on Tylenol: Code(s): T39.1X1A - Poisoning by 4-Aminophenol derivatives, accidental (unintentional), initial encounter Status: Acute Assessment and Plan: Patient took 60 pills of Fioricet although details are questionable She was treated with course of N acetylcysteine Her LFTs remain normal including ammonia. Repeat labs today remained in normal range Her INR remained normal Tylenol level has normalized Continue to monitor Discontinue IV fluid (2) Suicide attempt: Code(s): T14.91XA - Suicide attempt, initial encounter Status: Acute Assessment and Plan: Sitter at bedside Patient will be going to inpatient psychiatry upon discharge (3) Shoulder pain: Code(s): M25.519 - Pain in unspecified shoulder Status: Acute Assessment and Plan: Chronic pain I had ordered a shoulder x-ray but patient refused Continue P.r.n. oxycodone (4) Bipolar mood disorder: Code(s): F31.9 - Bipolar disorder, unspecified Status: Acute Assessment and Plan: Patient was evaluated by Dr. Santizo with Psychiatry. He has started patient on chlorpromazine and Zoloft Patient will be going for patient's psychiatric treatment upon discharge Continue sitter at bedside (5) Agitation: Code(s): R45.1 - Restlessness and agitation Status: Acute Assessment and Plan: Precedex has been weaned off this morning. Will continue to monitor (6) Electrolyte abnormality: Code(s): E87.8 - Other disorders of electrolyte and fluid balance, not elsewhere classified Status: Acute Assessment and Plan: Replace potassium (7) Urinary tract infection: Code(s): N39.0 - Urinary tract infection, site not specified Status: Acute Assessment and Plan: Negative urine culture She will complete a course of Rocephin after today's Plan DVT prophylaxis -Lovenox Nutrition -regular diet Incentive spirometry Up in chair Transfer out of ICU today Subjective Date/time seen: 04/21/22 Patient appears much more calm and appropriate this morning. She states that she has pain all over her body. She denies any other complaint. She states that she did had some dysuria at home Patient denies fever, chest pain, shortness of breath, cough, nausea vomiting, abdominal pain,, diarrhea, headache or constipation.. All other systems were reviewed and were negative. She did not required any Precedex infusion since yesterday and has not required any restraints overnight. She was evaluated by Psychiatry and her medications were adjusted Other vital signs are stable She is on room air Sitter is at bedside Review of Systems Review of Systems: All systems reviewed & are unremarkable except as noted in HPI and below (Limited review of system was obtained as above.) Exam Narrative: General: Pt is alert awake and in NAD, poor hygiene Lungs/Chest: Trachea central Clear BS B/L, No crackles or wheezing. Cardiac: RRR. Normal S1 S2. No murmurs Circulation: Pedal pulses are intact and symmetrical. Abdomen: Normal bowel sounds.. Soft. NT. ND. Extremities: No clubbing, cyanosis or edema. Warm : Rich in place Neurologic: Awake Follows commands. Moves all 4 extremities PERRL AO x2 Skin: No Rash Objective Data Vital Signs Vital Signs: Vital Signs - 24 hr 04/20/22 08:38 04/20/22 10:00 04/20/22 12:00 Temperature 36.4 C 36.6 C Pulse Rate 73 82 90 Respiratory Rate 15 15 18 Blood Pressure 137/73 141/84 H Pulse Oximetry 99 100 Oxygen Delivery 04/20/22 12:00 04/20/22 10:00 04/20/22 12:00 Temperature Pulse Rate 78 97 Respiratory Rate Blood Pressure Pulse Oximetry 100 Oxygen Delivery Room Air 04/20/22 14:00 04/20/22 14:00 04/20/22 16:00 Temperature 36.2 C L Pulse Rate 86 92 94 Respiratory Rate 18 Blood Pressure 151/83 H Pulse Oximetry 100 Oxygen Delivery 04/20/22 16:00
[2022-04-21] MEDS: POTASSIUM CHLORIDE 20 MEQ TABLET 40 MEQ PO (08:34)
[2022-04-21] MEDS: ENOXAPARIN 40 MG/0.4 ML SYRINGE SUB-Q (08:35)
[2022-04-21] MEDS: SERTRALINE HCL 25 MG TABLET PO (08:36)
--- NOTE | 2022-04-21 15:46 | PM.DS ---
DS: Admitting Diagnosis Discharge Date 04/21/22 Admitting Diagnosis Tylenol OD Toxic Encephalopathy DS: Discharge Diagnosis Discharge Diagnosis (1) Suicide attempt: Code(s): T14.91XA - Suicide attempt, initial encounter Status: Acute (2) Back pain: Code(s): M54.9 - Dorsalgia, unspecified Status: Acute (3) Electrolyte abnormality: Code(s): E87.8 - Other disorders of electrolyte and fluid balance, not elsewhere classified Status: Acute (4) Shoulder pain: Code(s): M25.519 - Pain in unspecified shoulder Status: Acute (5) Bipolar mood disorder: Code(s): F31.9 - Bipolar disorder, unspecified Status: Acute (6) Overdose on Tylenol: Code(s): T39.1X1A - Poisoning by 4-Aminophenol derivatives, accidental (unintentional), initial encounter Status: Acute (7) Agitation: Code(s): R45.1 - Restlessness and agitation Status: Acute (8) Altered mental status: Code(s): R41.82 - Altered mental status, unspecified Status: Acute (9) Urinary tract infection, site not specified: Code(s): N39.0 - Urinary tract infection, site not specified Status: Acute (10) Toxic metabolic encephalopathy: Code(s): G92.8 - Other toxic encephalopathy Status: Acute DS: Summary Hospital Course Reason for hospitalization: Suicide attempt Hospital Course: 56-year-old female admitted to ICU after suspected Tylenol overdose by consuming Fioricet (Tylenol containing product). Labs were not consistent with patient's reported quantity of ingestion, fortunately. She was monitored in the ICU and treated by standard Tylenol overdose protocol. Her liver enzymes and renal function are normal at the time discharge, and she is discharged in stable condition to inpatient psychiatric unit for ongoing care. 04/18/22 Acetaminophen overdose (as Fiorecet) -unclear if this was truly a suicidal ideation.? Unable to obtain medical history from patient, however reviewing her medications in the chart appears patient does have some psychiatric issues.? Post 2 doses of NAC.? LFTs normal, PT INR normal.? Continue to monitor in ICU Encephalopathy -suspect secondary to Ativan use.? Hold off on further sedating medications for now.? Haldol for agitation if needed.? Ammonia normal 04/19/22 ?patient remains in ICU Consult psych Continue Precedex drip per insurance follow up rep Recommendations appreciated 04/20/22 off gtt pt requesting more pain meds, this is declined at this time cont oxy PRN waiting for evaluation x dc planning 04/21/22 seen by Psychiatry and inpt admission recommended pt is accepted to [facility] for inpt psychiatric care discharge in stable condition on RA w normal liver and renal fxn hepatitis C and Syphilis study results pending pt without opiates in her system per [facility] at admission. Will dc on Ibuprofen w Famotidine to prevent stomach irritation, to be taken with food. Status at Discharge Functional status at discharge: independent ambulation Time Spent with Patient Time attestation: Total time spent providing and/or coordinating discharge services: Time spent: Greater than 30 minutes Exam Narrative: General: NAD, poor hygiene Awake Follows commands. Lungs/Chest: Trachea central Clear BS B/L, No crackles or wheezing. Cardiac: RRR. Normal S1 S2. No murmurs Extremities: No clubbing, cyanosis or edema. Warm. sits up bearing all of her weight on LUE without difficulty or pain Neurologic: Moves all 4 extremities CN intact no focal motor deficits appreciated Skin: No Rash DS: Data Data Completed and Pending Labs on day of discharge: Labs from last 24 hours 04/21/22 04/21/22 04/21/22 04:16 04:16 04:16 WBC 7.1 RBC 3.61 L Hgb 12.1 Hct 37.0 MCV 102.5 H MCH 33.5 MCHC 32.7 RDW 15.0 H Plt Count 307 MPV 9.2 Magnesium 1.9 Triglycerides 143 Cholesterol 194 LDL Cholesterol Direct
--- NOTE | 2022-04-21 16:14 | PC.NURSE ---
Report given to Nurse Moore at [facility] to transfer patient to [id number]
[2022-04-23 07:51] LABS: Rapid Plasma Reagin Non-Reactive (NonReactive)
== END 2022-04-21 19:30 | disposition other institution (70) | DRG 917 ==
LOC: ANHED 07:51 → ANHICU 18:17
PROVIDERS: Emergency Medicine; Internal Medicine; Psychiatry & Neurology Psychiatry; Admitting Provider Chiropractor; Emergency Provider Emergency Medicine; Visit Provider Hospitalist
DX: T39.1X1A Poisoning by 4-Aminophenol derivatives, accidental (unintentional), initial encounter (principal); G92.8 Other toxic encephalopathy; N39.0 Urinary tract infection, site not specified; E87.8 Other disorders of electrolyte and fluid balance, not elsewhere classified; E78.5 Hyperlipidemia, unspecified; M54.9 Dorsalgia, unspecified; M25.519 Pain in unspecified shoulder; G89.29 Other chronic pain; F31.9 Bipolar disorder, unspecified; F11.90 Opioid use, unspecified, uncomplicated; F17.210 Nicotine dependence, cigarettes, uncomplicated; Z20.822 Contact with and (suspected) exposure to COVID-19; Z90.710 Acquired absence of both cervix and uterus
CPT/HCPCS: 36415; 51702; 70450; 80048; 80053; 80061; 80074; 80076; 80307; 81001; 82140; 82306; 82550; 82607; 82746; 82948; 83605; 83735; 84100; 84443; 85025; 85027; 85610; 86592; 86703; 87086; 87088; 87522; 93005; 96365; 96366; 96367; 96372; 96375; 96376; 99285; A9270; C9803; G0378; G0432; J0132; J0696; J1650; J2060; J3230; J3480; J7030; J7040; J7060; J7120; U0003; U0005

== ENCOUNTER 2022-09-22 12:05 | Emergency (ER) | payer MEDICARE, MEDICAID, SELFPAY ==
--- NOTE | ~2022-09-22 | CT_ITS ---
EXAMINATION: CT cervical spine wo con DATE: 09/22/2022 13:56 INDICATION: Head injury TECHNIQUE: Computed tomography (CT) of the cervical spine was performed without intravenous contrast. The dose-length product (DLP) was 246.48 mGy-cm. Automated exposure control and iterative reconstruc tion technique were employed. COMPARISON: 07/25/2011 FINDINGS: Motion artifact significantly limits evaluation of the mid/lower the odontoid process is in tact. Cervical spine. Bone alignment is grossly normal. There is severe loss of intervertebral disc s pace height at C5-6 and C6-7. No definite fracture is identified. There is multilevel moderate to sev ere facet and uncovertebral joint osteoarthritis. IMPRESSION: 1. Grossly no cervical spine fracture. Motion artifact renders images of the mid/lower cervical spine uninterpretable. If there is high clinical suspicion for cervical spine fracture. Repeat CT is recom mended. Reviewed, dictated and finalized at location F. WORKER FOREMAN IMPRESSION: 1. Grossly no cervical spine fracture. Motion artifact renders images of the mi d/lower cervical spine uninterpretable. If there is high clinical suspicion for cervical spine fracture. Repeat CT is recommended.
--- NOTE | ~2022-09-22 | CT_ITS ---
EXAMINATION: CT brain wo con INDICATION: Transient alteration of awareness COMPARISON: 04/28/2022 TECHNIQUE: Standard unenhanced head CT. The dose-length product (DLP) was 605.33 mGy-cm. The mA was a djusted according to patient size. Iterative reconstruction technique was employed. FINDINGS: There is no intracranial hemorrhage, acute infarction, or abnormal mass lesion. The ventric les are normal. There is no abnormal mass effect or midline shift. The bellamy-white matter differentiat ion is normal. The basal cisterns are patent. The orbits are normal. 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 The paranasal sinuses, mastoids and calvarium are normal. IMPRESSION: 1. No acute intracranial abnormality. Reviewed, dictated and finalized at location F. MILLING MACHINE TENDER
[2022-09-22 12:03] VITALS: BP 109/78; PULSE 78; RESP 18; TEMP 36.4; O2SAT 95
--- NOTE | 2022-09-22 12:06 | ECG_ITS ---
Measurements Intervals [place] Rate: 77 P: 64 MS: 251 QRS: 216 QRSD: 169 T: 43 QT: 455 QTc: 517 Interpretive Statements SINUS RHYTHM WITH FIRST DEGREE AV BLOCK POSSIBLE LEFT ATRIAL ENLARGEMENT RIGHT BUNDLE BRANCH BLOCK LEFT POSTERIOR FASCICULAR BLOCK ABNORMAL ECG COMPARED TO ECG 04/18/2022 12:05:08 SINUS RHYTHM NOW PRESENT FIRST DEGREE AV BLOCK NOW PRESENT Electronically Signed On 09-22-2022 16:09:31 MANAGEMENT AIDE by Tony Chen D.O.
[2022-09-22 12:21] VITALS: PULSE 80
[2022-09-22 12:26] LABS: Basophils Absolute Auto 0.1 K/mm3 (0.0-0.1); Basophils Percent Auto 0.5 % (0.2-1.2); Eosinophils Absolute Auto 0.1 K/mm3 (0-0.3); Eosinophils Percent Auto 0.7 % (0-4.4); Hematocrit 44.9 % (37.0-47.0); Hemoglobin 14.7 g/dL (12.0-15.0); Immature Granulocyte Absolute 0.03 K/mm3 (0.00-0.031); Immature Granulocyte Percent A 0.3 % (0-0.5); Lymphocytes Absolute Auto 1.72 K/mm3 (0.9-3.2); Mean Corpuscular HGB Conc 32.7 g/dl (32-36); Mean Corpuscular Hemoglobin 35.1 pg (26-34); Mean Corpuscular Volume 107.2 fl (80-100); Mean Platelet Volume 9.3 fl (7.4-10.4); Monocytes Absolute Auto 1.2 K/mm3 (0.1-0.6); Monocytes Percent Auto 12.3 % (2.6-8.5); Neutrophils Absolute Auto 6.5 K/mm3 (1.3-6.7); Neutrophils Percent Auto 68.2 % (45.5-73.1); Platelet Count Result 362 k/mm3 (150-375); Red Blood Count 4.19 M/mm3 (4.2-5.4); Red Cell Distribution Width 13.6 % (11.5-14.5); White Blood Count 9.5 K/mm3 (4.5-10.0)
[2022-09-22 12:28] LABS: Add Urine Microscopic? YES; Appearance Urine Slightly Cloudy (Clear); Bilirubin Urine 2+ (Negative); Blood Urine Negative (Negative); Glucose Urine UA Negative (Negative); Ketones Urine Trace mg/dL (Negative); Leukocyte Esterase Ur 1+ LEU/UL (Negative); Nitrate Urine Positive (Negative); Protein Urine 2+ mg/dL (Negative); Specific Grav Ur 1.025 (1.001-1.035); pH Urine 5.5 (5.0-9.0)
[2022-09-22 12:31] LABS: Mucus Urine Rare /lpf; Squamous Epithelial Cell Urine Rare /hpf (Few); WBC Urine 31-50 /hpf
[2022-09-22 12:34] LABS: Alanine Aminotransferase 34 U/L (6-35); Albumin Level 4.8 g/dL (3.5-5.1); Alkaline Phosphatase 98 U/L (38-126); Anion Gap 9 mmol/L (8-16); Aspartate Amino Transferase 52 U/L (14-36); Bilirubin,Total 0.7 mg/dL (0.2-1.3); Blood Urea Nitrogen 14 mg/dL (7-17); Calcium 9.3 mg/dL (8.4-10.2); Carbon Dioxide 27 mmol/L (22-30); Chloride 103 mmol/L (98-107); Estimated CRCL calculation 82 ml/min; Estimated Glomerular Filt Rate > 60; Glucose 81 mg/dL (65-110); Potassium 3.1 mmol/L (3.4-5.0); Sodium 139 mmol/L (137-145)
[2022-09-22 12:35] LABS: Ethanol < 10 mg/dL (<10)
[2022-09-22 12:37] LABS: INR 1.1; Prothrombin Time 13.4 Seconds (11.1-14.7)
[2022-09-22 12:38] LABS: Partial Thromboplastin Time 29.3 SECONDS (22.3-36.8)
[2022-09-22 12:40] LABS: Color Urine Dark Yellow (Yellow)
[2022-09-22 12:46] LABS: Amphetamine Screen Urine Negative (Negative); Barbiturate Screen Urine Positive (Negative); Benzodiazepines Screen Urine Negative (Negative); Cannabinoid Screen Urine Negative (Negative); Cocaine Screen Urine Negative (Negative); Methadone Screen Urine Negative (Negative); Opiate Screen Urine Positive (Negative); Phencyclidine Screen Urine Negative (Negative)
[2022-09-22 13:05] LABS: Acetaminophen < 10 ug/mL (10-30); Salicylate < 1.0 mg/dL (2-20)
[2022-09-22 13:21] VITALS: BP 116/75; PULSE 76; RESP 14; O2SAT 98
--- NOTE | 2022-09-22 13:28 | PC.NURSE ---
Patient refusing to answer any questions or take any medications at this time. EDP aware of patient condition.
--- NOTE | 2022-09-22 13:37 | ED.AMS ---
HPI - Altered Mental Status General Chief Complaint: Altered Mental Status Stated Complaint: Altered Mental Status Time Seen by Provider: 09/22/22 12:19 History of Present Illness HPI narrative: 57-year-old female presenting the emergency department for evaluation of altered mental status. Patient does admit to taking Soma and [place] for the intended of getting high . Patient denies any intent of self-harm. Patient's mother found the patient morning for help after a fall and was unsure of what the patient had ingested. Upon arrival to the emergency department patient was able to give details on what medication she took. Related Data Home Medications Medication Instructions Recorded Confirmed albuterol sulfate 90 mcg/actuation 2 puff inhalation TID PRN SOB 04/18/22 04/19/22 aerosol inhaler benztropine 2 mg tablet 2 mg PO QAM AND QPM 04/18/22 04/19/22 [id number] 1 tablet PO Q8H PRN Pain 04/18/22 04/19/22 50 mg-325 mg-40 mg tablet ezetimibe 10 mg tablet 10 mg PO DAILY 04/18/22 04/19/22 fluticasone 250 mcg-salmeterol 50 1 inh inhalation BID 04/18/22 04/19/22 mcg/dose blistr powdr for inhalation (Advair Diskus) gabapentin 300 mg capsule 600 mg PO TID 04/18/22 04/19/22 icosapent ethyl 1 gram capsule 2 g PO BID 04/18/22 04/19/22 (Vascepa) prazosin 5 mg capsule 5 mg PO HS 04/18/22 04/19/22 Allergies Allergy/AdvReac Type Severity Reaction Status Date / Time amoxicillin [From Augmentin] Allergy Hives Verified 09/22/22 12:17 asenapine [From Saphris] Allergy Hives Verified 09/22/22 12:17 bacitracin Allergy Rash Verified 09/22/22 12:17 [From Neosporin ([id number])] clavulanic acid Allergy Hives Verified 09/22/22 12:17 [From Augmentin] erythromycin base Allergy Hives Verified 09/22/22 12:17 haloperidol [From Haldol] Allergy Swelling Verified 09/22/22 12:17 of Lip/Tongue/Throat latex Allergy Rash Verified 09/22/22 12:17 neomycin Allergy Rash Verified 09/22/22 12:17 [From Neosporin ([id number])] olanzapine [From Zyprexa] Allergy Swelling Verified 09/22/22 12:17 of Lip/Tongue/Throat polymyxin B Allergy Rash Verified 09/22/22 12:17 [From Neosporin ([id number])] risperidone [From Risperdal] Allergy Hives Verified 09/22/22 12:17 tramadol [From Ultram] Allergy Rash Verified 09/22/22 12:17 ciprofloxacin AdvReac Vomiting Verified 09/22/22 12:17 ibuprofen AdvReac Vomiting Verified 09/22/22 12:17 grass Allergy Hives Uncoded 09/27/20 12:50 Steriod AdvReac Agitated Uncoded 09/27/20 12:50 Review of Systems Review of Systems: CONSTITUTIONAL: See HPI EYES: Denies visual changes, redness, or discharge. ENT: Denies rhinorrhea, congestion, sore throat, or otalgia. CARDIOVASCULAR: Denies chest pain, palpitations, or edema. RESPIRATORY: Denies cough or dyspnea. GASTROINTESTINAL: Denies abdominal pain, nausea, vomiting, or diarrhea. GENITOURINARY: Denies dysuria or hematuria. SKIN: Denies rash or itching. MUSCULOSKELETAL: Denies back pain, joint pain, or myalgia. NEUROLOGIC: Denies headache, numbness, or weakness. PSYCHIATRIC: See HPI PMFSH Past Medical History Medical History (Updated 09/22/22 @ 18:31 by Tejas Santana MD) Back pain Bipolar mood disorder Drug overdose Suicide attempt Surgical History Surgical History (Updated 04/19/22 @ 13:28 by Mono Gay MD) H/O: hysterectomy History of back surgery Social History Social History Smoking packs per day: 2 Smoking cigarettes per day: 40.0 Years smoked: 44 Smoking pack-years: 88.00 Smoking status: Current every day smoker Alcohol intake: unknown Substance use: unknown Substance use type: prescription drug Spiritual care concerns: No Exam Narrative: APPEARANCE: Well appearing, no pain, no distress, well-nourished. HEAD: normocephalic, atraumatic. EYES: PERRLA/EOMI, conjunctivae clear. NOSE: Normal no drainage EARS:TMS clear with good l
--- NOTE | 2022-09-22 14:00 | PC.NURSE ---
Poison Controlled at this time per EDP request. Poison control requires AST/ALT to be checking again 6 hours after initial draw. Patient took soma (muscle relaxers) and [place] but unknown doses and unknown time.
[2022-09-22] MEDS: NALOXONE HCL INJ 2 MG/2 ML AMP 1 MG IV PUSH (15:09)
[2022-09-22 15:12] VITALS: BP 118/71; PULSE 75; RESP 14; O2SAT 95
[2022-09-22] MEDS: NITROFURANTOIN MONOHYD MACROCR 100 MG CAP PO (15:48)
[2022-09-22 16:39] VITALS: BP 118/74; PULSE 73; RESP 16; O2SAT 98
[2022-09-22 17:33] VITALS: BP 118/86; PULSE 75; RESP 21; O2SAT 98
[2022-09-22 17:58] LABS: Alanine Aminotransferase 33 U/L (6-35); Albumin Level 4.4 g/dL (3.5-5.1); Alkaline Phosphatase 84 U/L (38-126); Anion Gap 7 mmol/L (8-16); Aspartate Amino Transferase 44 U/L (14-36); Bilirubin,Total 0.5 mg/dL (0.2-1.3); Blood Urea Nitrogen 14 mg/dL (7-17); Calcium 9.1 mg/dL (8.4-10.2); Carbon Dioxide 31 mmol/L (22-30); Chloride 100 mmol/L (98-107); Estimated CRCL calculation 71 ml/min; Estimated Glomerular Filt Rate > 60; Glucose 111 mg/dL (65-110); Potassium 3.1 mmol/L (3.4-5.0); Sodium 138 mmol/L (137-145)
--- NOTE | 2022-09-22 18:32 | PC.NURSE ---
Patient walked without difficulty and in no distress around ED.
== END 2022-09-22 18:54 | disposition home or self-care (01) ==
PROVIDERS: Emergency Medicine; Emergency Provider Emergency Medicine; PCP Internal Medicine Gastroenterology
DX: T42.8X1A Poisoning by antiparkinsonism drugs and other central muscle-tone depressants, accidental (unintentional), initial encounter (principal); F31.9 Bipolar disorder, unspecified; N39.0 Urinary tract infection, site not specified; F17.210 Nicotine dependence, cigarettes, uncomplicated; I44.0 Atrioventricular block, first degree; I45.2 Bifascicular block; R94.31 Abnormal electrocardiogram [ECG] [EKG]; Z90.710 Acquired absence of both cervix and uterus
CPT/HCPCS: 36415; 51701; 70450; 72125; 80053; 80307; 81001; 81025; 85025; 85610; 85730; 87077; 87086; 87186; 93005; 96374; 99284; A9270; J2310

== ENCOUNTER 2023-01-04 15:20 | Emergency (ER) | payer MEDICARE, MEDICAID, SELFPAY ==
--- NOTE | ~2023-01-04 | XR_ITS ---
EXAMINATION: XR knee RT 3V DATE: 01/04/2023 16:18 INDICATION: Right knee injury and pain and swelling. TECHNIQUE: 3 views of right knee were obtained. COMPARISON: Right tibia and fibula radiographs 11/21/2009 FINDINGS: Bone alignment is normal. No fracture. There is mild tricompartmental osteoarthritis. No kn ee joint effusion. IMPRESSION: 1. Mild right knee osteoarthritis. Reviewed, dictated and finalized at location E.
--- NOTE | ~2023-01-04 | XR_ITS ---
EXAMINATION: XR wrist RT min 3V DATE: 01/04/2023 16:18 INDICATION: Right wrist injury and pain and swelling. TECHNIQUE: 4 views of right wrist were obtained. COMPARISON: None. FINDINGS: There is a comminuted fracture of distal radius with involvement of the distal articular grissom rface and distal radioulnar joint. The main distal fracture fragment demonstrates impaction, 1 mm ko carie displacement, and dorsal angulation. There is 1 degree palmar tilt of the distal articular surfac e. Joint spaces are normal. IMPRESSION: 1. Comminuted fracture of distal radius. Reviewed, dictated and finalized at location E.
--- NOTE | ~2023-01-04 | XR_ITS ---
EXAMINATION: XR ankle RT min 3V DATE: 01/04/2023 16:18 INDICATION: Right ankle injury and pain. TECHNIQUE: 4 views of right ankle were obtained. COMPARISON: Right ankle radiographs 11/21/2009 FINDINGS: Bone alignment is normal. Partially visualized is an oblique fracture of distal fibula with medial aspect of the fracture line 7 mm distal to the level of the tibial plafond. Partially visuali zed is an implant at head of first metatarsal. Joint spaces are normal. There is ankle soft tissue sw elling. IMPRESSION: 1. Nondisplaced oblique fracture of lateral malleolus. Reviewed, dictated and finalized at location E.
[2023-01-04 15:43] VITALS: BP 109/67; PULSE 102; RESP 18; TEMP 36.2; O2SAT 100
[2023-01-04 18:45] VITALS: BP 116/69; PULSE 97; RESP 18; TEMP 36.1; O2SAT 99
--- NOTE | 2023-01-04 19:54 | PC.NURSE ---
Friend and pt came up to intake desk and reported that pt was leaving at this time. This nurse recommended to stay for recommendation of imaging. Pt still insistent to leave at this time. Pt ambulatory with steady gait out of ED lobby.
== END 2023-01-04 20:09 | disposition left against medical advice (07) ==
PROVIDERS: Emergency Provider Emergency Medicine; PCP Internal Medicine Gastroenterology
DX: S69.91XA Unspecified injury of right wrist, hand and finger(s), initial encounter (principal)
CPT/HCPCS: 73110; 73562; 73610; 99199

== ENCOUNTER 2023-01-05 13:03 | Emergency (ER) | payer MEDICARE, MEDICAID, SELFPAY ==
--- NOTE | ~2023-01-05 | CT_ITS ---
EXAMINATION: CT brain wo con INDICATION: Head injury COMPARISON: 09/22/2022 TECHNIQUE: Standard unenhanced head CT. The dose-length product (DLP) was 529.67 mGy-cm. The mA was a djusted according to patient size. Iterative reconstruction technique was employed. FINDINGS: There is no intracranial hemorrhage, acute infarction, or abnormal mass lesion. The ventric les are normal. There is no abnormal mass effect or midline shift. The bellamy-white matter differentiat ion is normal. The basal cisterns are patent. The orbits are normal. 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 The paranasal sinuses, mastoids and calvarium are normal. IMPRESSION: 1. No acute intracranial abnormality. Reviewed, dictated and finalized at location A.
--- NOTE | ~2023-01-05 | XR_ITS ---
EXAMINATION: XR hand RT min 3V INDICATION: Right hand pain TECHNIQUE: Three views of the right hand are obtained. COMPARISON: 01/04/2023 FINDINGS: No fracture, dislocation, or subluxation of the hand is identified. Again noted is a commin uted fracture of the distal radius. There is moderate osteoarthritis of multiple interphalangeal join ts. IMPRESSION: 1. No acute osseous abnormality of the hand. Reviewed, dictated and finalized at location A.
--- NOTE | ~2023-01-05 | XR_ITS ---
EXAMINATION: XR foot RT 2V INDICATION: Foot pain and bruising TECHNIQUE: Two views of the right foot are obtained. COMPARISON: 01/04/2023 FINDINGS: The nondisplaced lateral malleolus fracture is better evaluated on the comparison radiograp hs. No acute fracture of the foot is identified. An implant is noted in the head of the first metatar carie. There is mild osteoarthritis of multiple interphalangeal joints. IMPRESSION: 1. No acute osseous abnormality of the foot. Reviewed, dictated and finalized at location A.
[2023-01-05 13:14] VITALS: BP 118/74; PULSE 110; RESP 14; TEMP 36.7; O2SAT 97
--- NOTE | 2023-01-05 13:48 | ED.FALL ---
HPI - Fall General Chief Complaint: Fall <TWILA Barger Last Filed: 01/08/23 09:38> Stated Complaint: wrist and ankle pain <TWILA Barger Last Filed: 01/08/23 09:38> Time Seen by Provider: 01/05/23 13:25 <TWILA Barger Last Filed: 01/08/23 09:38> History of Present Illness HPI Narrative: 57-year-old female with a history of bipolar disorder reports for evaluation of right wrist pain and right ankle pain after a fall that occurred 4 days ago. Patient states she accidentally bumped into a table, because the table to fall and then tripped over the table, landing on her right wrist and right foot. She is unsure if she hit her head. No loss of consciousness. She is complaining of right ankle and foot pain, pain to her right wrist and ecchymosis. Reports taking [place] for pain at home. Denies paresthesias. Denies other acquired injury <TWILA Barger Last Filed: 01/08/23 09:38> Related Data Home Medications: Home Medications Medication Instructions Recorded Confirmed benztropine 2 mg tablet 2 mg PO QAM AND QPM 04/18/22 04/19/22 cygukwxptb-cxcuxtevrqojb-pmslbabj 1 tablet PO Q8H PRN Pain 04/18/22 04/19/22 50 mg-325 mg-40 mg tablet gabapentin 300 mg capsule 600 mg PO TID 04/18/22 04/19/22 prazosin 5 mg capsule 5 mg PO HS 04/18/22 04/19/22 benztropine 2 mg tablet 2 mg PO BID 11/22/22 uyfwukisbm-bsbifocveinre-rfylstdq 1 tablet PO Q8H PRN 11/22/22 50 mg-325 mg-40 mg tablet cyclobenzaprine 10 mg tablet 10 mg PO QHS 11/22/22 desipramine 150 mg tablet 300 mg PO QHS 11/22/22 hydrocodone 10 mg-acetaminophen 1 tablet PO Q8H PRN 11/22/22 325 mg tablet ondansetron HCl 4 mg tablet 4 mg PO Q8H 11/22/22 <TWILA Barger Last Filed: 01/08/23 09:38> Allergies/Adverse Reactions: Allergies Allergy/AdvReac Type Severity Reaction Status Date / Time amoxicillin [From Augmentin] Allergy Hives Verified 01/04/23 15:21 asenapine [From Saphris] Allergy Hives Verified 01/04/23 15:21 bacitracin Allergy Rash Verified 01/04/23 15:21 [From Neosporin ([id number])] clavulanic acid Allergy Hives Verified 01/04/23 15:21 [From Augmentin] erythromycin base Allergy Hives Verified 01/04/23 15:21 haloperidol [From Haldol] Allergy Swelling Verified 01/04/23 15:21 of Lip/Tongue/Throat latex Allergy Rash Verified 01/04/23 15:21 neomycin Allergy Rash Verified 01/04/23 15:21 [From Neosporin ([id number])] olanzapine [From Zyprexa] Allergy Swelling Verified 01/04/23 15:21 of Lip/Tongue/Throat polymyxin B Allergy Rash Verified 01/04/23 15:21 [From Neosporin ([id number])] risperidone [From Risperdal] Allergy Hives Verified 01/04/23 15:21 tramadol [From Ultram] Allergy Rash Verified 01/04/23 15:21 ciprofloxacin AdvReac Vomiting Verified 01/04/23 15:21 ibuprofen AdvReac Vomiting Verified 01/04/23 15:21 grass Allergy Hives Uncoded 01/04/23 15:21 Steriod AdvReac Agitated Uncoded 01/04/23 15:21 <Cathleen Boston PA-C - Last Filed: 01/08/23 09:38> Review of Systems Review of Systems: CONSTITUTIONAL: Denies fever, chills EYES: Denies visual changes, redness, or discharge. ENT: Denies rhinorrhea, congestion, sore throat, or otalgia. CARDIOVASCULAR: Denies chest pain, palpitations, or edema. RESPIRATORY: Denies cough or dyspnea. GASTROINTESTINAL: Denies abdominal pain, nausea, vomiting, or diarrhea. GENITOURINARY: Denies dysuria or hematuria. SKIN: Denies rash or itching. MUSCULOSKELETAL: HPI NEUROLOGIC: Denies headache, numbness, dizziness, or weakness. PSYCHIATRIC: Denies anxiety or depression. <Cathleen Boston PA-C - Last Filed: 01/08/23 09:38> [facility] Past Medical History Medical History: Medical History Anxiety Back pain Bipolar mood disorder Drug overdose Migraine Seizure Suicide attempt <Cathleen Boston,
[2023-01-05] MEDS: HYDROcodone/acetaminophen (*CRX) 10-325 MG TABLET 1 TAB PO (14:04)
[2023-01-05] MEDS: ONDANSETRON HCL ODT 4 MG TABLET PO (15:14)
[2023-01-05] MEDS: MORPHINE SULFATE INJ (*CRX) 10 MG/ML AMP IM (15:14)
--- NOTE | 2023-01-05 15:20 | PC.NURSE ---
Pt refusing splint, states she does not want a slint and shoe fly get out of here
== END 2023-01-05 16:15 | disposition home or self-care (01) ==
PROVIDERS: Emergency Provider Physician Assistant; PCP Internal Medicine Gastroenterology
DX: S52.91XA Unspecified fracture of right forearm, initial encounter for closed fracture (principal); S82.61XA Displaced fracture of lateral malleolus of right fibula, initial encounter for closed fracture; Z90.710 Acquired absence of both cervix and uterus; F17.210 Nicotine dependence, cigarettes, uncomplicated; W18.09XA Striking against other object with subsequent fall, initial encounter
CPT/HCPCS: 29125; 29515; 70450; 73130; 73620; 96372; 99284; A4565; A9270; J2270

== ENCOUNTER 2023-03-02 21:47 | Emergency (ER) | payer MEDICARE, MEDICAID, SELFPAY ==
--- NOTE | ~2023-03-02 | CT_ITS ---
EXAMINATION: CT brain wo con DATE: 03/03/2023 05:01 INDICATION: Fall, head trauma. Altered mental status. TECHNIQUE: Computed tomography (CT) of the head was performed without intravenous contrast. The mA wa s adjusted according to patient size. Iterative reconstruction technique was employed. Exam dose: 12 10.67 mGy-cm total exam DLP. COMPARISON: January 05, 2023 CT brain FINDINGS: Despite repeat imaging, the examination is nondiagnostic due to extensive artifact from pat ient motion. No gross intracranial mass lesion or hemorrhage, midline shift or mass effect is detected. No obvious skull fracture is noted. IMPRESSION: Nondiagnostic examination due to motion Reviewed, dictated and finalized at Location A. Reviewed, dictated and finalized at location A.
--- NOTE | 2023-03-02 22:00 | ECG_ITS ---
Measurements Intervals [place] Rate: 87 P: 77 [place]: 171 QRS: 38 QRSD: 113 T: 53 QT: 387 QTc: 468 Interpretive Statements SINUS RHYTHM INDETERMINATE AXIS INCOMPLETE RIGHT BUNDLE BRANCH BLOCK [90+ ms QRS DURATION, TERMINAL R IN V1/V2, 40+ ms S IN I/aVL/V4/V5/V6] BORDERLINE ECG COMPARED TO ECG 09/22/2022 12:06:43 RIGHT BUNDLE BRANCH BLOCK CONDUCTION IS NOW INCOMPLETE Electronically Signed On 03-03-2023 8:31:24 CDT by Mat Jara M.D.
--- NOTE | 2023-03-02 22:02 | ED.GENADULT ---
HPI - General Adult General Chief complaint: Psychiatric Symptoms <Tejas Santana MD - Last Filed: 03/03/23 06:16> Stated complaint: psych eval <Tejas Santana MD - Last Filed: 03/03/23 06:16> Time Seen by Provider: 03/03/23 07:48 <Tejas Santana MD - Last Filed: 03/03/23 06:16> History of Present Illness HPI narrative: 57-year-old female presented the emergency department for evaluation of altered mental status. Patient's mother reports that they got into a verbal argument today. Patient's mother found a bottle of Fioricet that had been filled yesterday. Bottle did have some dog bite peters on it so is unsure of the patient consumed the furosemide or if the dog consumed the Fioricet. Patient declined to answer the question. Patient does have a history of substance abuse and psychiatric illness. Patiently had EMS called due to change in mental status. Upon arrival to the ED patient is verbally assaulting and is declining medical work-up. <Tejas Santana MD - Last Filed: 03/03/23 06:16> Related Data Home medications: Home Medications Medication Instructions Recorded Confirmed benztropine 2 mg tablet 2 mg PO QAM AND QPM 04/18/22 02/28/23 bwjbrymbzi-ozrnpzdkdaxgc-bitiyjyr 1 tablet PO Q8H PRN Pain 04/18/22 02/28/23 50 mg-325 mg-40 mg tablet prazosin 5 mg capsule 5 mg PO HS 04/18/22 02/28/23 cyclobenzaprine 10 mg tablet 10 mg PO QHS 11/22/22 02/28/23 desipramine 150 mg tablet 300 mg PO QHS 11/22/22 02/28/23 hydrocodone 10 mg-acetaminophen 1 tablet PO Q8H PRN Pain 11/22/22 02/28/23 325 mg tablet ondansetron HCl 4 mg tablet 4 mg PO Q8H 11/22/22 02/28/23 <Tejas Santana MD - Last Filed: 03/03/23 06:16> Allergies/adverse reactions: Allergies Allergy/AdvReac Type Severity Reaction Status Date / Time grass pollen Allergy Intermediate Hives Verified 03/04/23 12:49 amoxicillin [From Augmentin] Allergy Hives Verified 03/04/23 12:49 asenapine [From Saphris] Allergy Hives Verified 03/04/23 12:49 bacitracin Allergy Rash Verified 03/04/23 12:49 [From Neosporin ([id number])] clavulanic acid Allergy Hives Verified 03/04/23 12:49 [From Augmentin] erythromycin base Allergy Hives Verified 03/04/23 12:49 haloperidol [From Haldol] Allergy Swelling Verified 03/04/23 12:49 of Lip/Tongue/Throat latex Allergy Rash Verified 03/04/23 12:49 neomycin Allergy Rash Verified 03/04/23 12:49 [From Neosporin ([id number])] olanzapine [From Zyprexa] Allergy Swelling Verified 03/04/23 12:49 of Lip/Tongue/Throat polymyxin B Allergy Rash Verified 03/04/23 12:49 [From Neosporin ([id number])] risperidone [From Risperdal] Allergy Hives Verified 03/04/23 12:49 tramadol [From Ultram] Allergy Rash Verified 03/04/23 12:49 ciprofloxacin AdvReac Vomiting Verified 03/04/23 12:49 ibuprofen AdvReac Vomiting Verified 03/04/23 12:49 Steriod AdvReac Agitated Uncoded 03/04/23 12:49 <Tejas Santana MD - Last Filed: 03/03/23 06:16> Review of Systems Review of Systems: ROS unobtainable: Yes unobtainable due to medical condition <Tejas Santana MD - Last Filed: 03/03/23 06:16> [facility] Past Medical History Medical History: Medical History (Updated 03/03/23 @ 18:50 by Wong Rossi MD) Ankle fracture, lateral malleolus, closed December 2022 Anxiety Back pain Bipolar mood disorder Distal radial fracture December 2022 Drug overdose Migraine Seizure Suicide attempt <Tejas Santana MD - Last Filed: 03/03/23 06:16> Surgical History Surgical History: Surgical History H/O foot surgery 2021 X2 H/O: hysterectomy 2000 History of back surgery 1999 <Tejas Santana MD - Last Filed: 03/03/23 06:16> Family History Family History: Family History Father Alcoholism Grandparent Diabetes mellitus Hyp
[2023-03-02] MEDS: LORazepam INJ (*CRX) 2 MG/ML VIAL IM (22:07)
[2023-03-02] MEDS: diphenhydrAMINE HCl INJ 50 MG/ML VIAL IM (22:07)
[2023-03-02 22:50] LABS: Basophils Absolute Auto 0.1 K/mm3 (0.0-0.1); Basophils Percent Auto 0.7 % (0.2-1.2); Eosinophils Absolute Auto 0.1 K/mm3 (0-0.3); Eosinophils Percent Auto 0.7 % (0-4.4); Hematocrit 42.2 % (37.0-47.0); Hemoglobin 13.7 g/dL (12.0-15.0); Immature Granulocyte Absolute 0.04 K/mm3 (0.00-0.031); Immature Granulocyte Percent A 0.4 % (0-0.5); Lymphocytes Absolute Auto 2.63 K/mm3 (0.9-3.2); Mean Corpuscular HGB Conc 32.5 g/dl (32-36); Mean Corpuscular Hemoglobin 35.3 pg (26-34); Mean Corpuscular Volume 108.8 fl (80-100); Mean Platelet Volume 9.4 fl (7.4-10.4); Monocytes Percent Auto 11.1 % (2.6-8.5); Neutrophils Absolute Auto 5.5 K/mm3 (1.3-6.7); Neutrophils Percent Auto 59.1 % (45.5-73.1); Platelet Count Result 323 k/mm3 (150-375); Red Blood Count 3.88 M/mm3 (4.2-5.4); Red Cell Distribution Width 14.1 % (11.5-14.5); White Blood Count 9.4 K/mm3 (4.5-10.0)
[2023-03-02 23:03] LABS: Acetaminophen 18 ug/mL (10-30); Ethanol < 10 mg/dL (<10); Salicylate < 1.0 mg/dL (2-20)
[2023-03-02 23:04] LABS: Alanine Aminotransferase 22 U/L (6-35); Alkaline Phosphatase 86 U/L (38-126); Anion Gap 5 mmol/L (8-16); Aspartate Amino Transferase 27 U/L (14-36); Bilirubin,Total 0.6 mg/dL (0.2-1.3); Blood Urea Nitrogen 8 mg/dL (7-17); Calcium 9.2 mg/dL (8.4-10.2); Carbon Dioxide 28 mmol/L (22-30); Chloride 106 mmol/L (98-107); Estimated Glomerular Filt Rate > 60; Glucose 95 mg/dL (65-110); Potassium 3.3 mmol/L (3.4-5.0); Sodium 139 mmol/L (137-145)
[2023-03-03 00:10] LABS: Appearance Urine Cloudy (Clear); Bacteria Urine 4+ /hpf; Bilirubin Urine Negative (Negative); Blood Urine Negative (Negative); Color Urine Yellow (Yellow); Glucose Urine UA Negative (Negative); Ketones Urine Trace mg/dL (Negative); Leukocyte Esterase Ur 2+ LEU/UL (Negative); Need Manual Microscopic Reviewed; Nitrate Urine Positive (Negative); Non Pathogenic Casts 0-2; Protein Urine Trace mg/dL (Negative); RBC Urine 0-2 /hpf (0-2); Squamous Epithelial Cell Urine None seen /hpf (Few); WBC Urine 21-50 /hpf
[2023-03-03 00:23] LABS: Add Urine Microscopic? YES
[2023-03-03 00:36] LABS: Amphetamine Screen Urine Negative (Negative); Barbiturate Screen Urine Positive (Negative); Benzodiazepines Screen Urine Negative (Negative); Cannabinoid Screen Urine Negative (Negative); Cocaine Screen Urine Negative (Negative); Methadone Screen Urine Negative (Negative); Opiate Screen Urine Positive (Negative); Phencyclidine Screen Urine Negative (Negative)
[2023-03-03 00:47] LABS: Influenza A QL RT-PCR Negative (Negative); Influenza B QL RT-PCR Negative (Negative); SARS-CoV-2 RNA PCR Negative (Negative)
--- NOTE | 2023-03-03 00:58 | PC.NURSE ---
[address] [place] [address] Poison Control contacted, spoke with Kae in pharmacy. Updated her on pt. Recommendation is repeat in 4 hours an Acetaminophen level, liver function test (AST, ALT, ALP). Supportive care for pt. Treat with benzo (diazepam or ativan).
--- NOTE | 2023-03-03 02:07 | PC.NURSE ---
0206 - Bessy, from [place] [facility], called for an update on the pt. Informed her that lab redraw is in about 30 minutes. Will call with results.
--- NOTE | 2023-03-03 02:40 | ECG_ITS ---
Measurements Intervals [place] Rate: 93 P: 72 [place]: 181 QRS: 29 QRSD: 114 T: 52 QT: 365 QTc: 455 Interpretive Statements SINUS RHYTHM POSSIBLE LEFT ATRIAL ENLARGEMENT [-0.1mV P-WAVE IN V1/V2] INDETERMINATE AXIS INCOMPLETE RIGHT BUNDLE BRANCH BLOCK [90+ ms QRS DURATION, TERMINAL R IN V1/V2, 40+ ms S IN I/aVL/V4/V5/V6] BORDERLINE eCG COMPARED TO ECG 03/02/2023 23:52:15 NO SIGNIFICANT CHANGES Electronically Signed On 03-03-2023 8:31:51 CDT by Mat Jara M.D.
[2023-03-03 02:50] LABS: Acetaminophen < 10 ug/mL (10-30)
[2023-03-03 02:51] LABS: Alanine Aminotransferase 22 U/L (6-35); Alkaline Phosphatase 84 U/L (38-126); Anion Gap 3 mmol/L (8-16); Aspartate Amino Transferase 28 U/L (14-36); Bilirubin,Total 0.7 mg/dL (0.2-1.3); Blood Urea Nitrogen 8 mg/dL (7-17); Calcium 9.4 mg/dL (8.4-10.2); Carbon Dioxide 31 mmol/L (22-30); Chloride 106 mmol/L (98-107); Estimated Glomerular Filt Rate > 60; Glucose 94 mg/dL (65-110); Potassium 3.3 mmol/L (3.4-5.0); Sodium 140 mmol/L (137-145)
--- NOTE | 2023-03-03 03:08 | PC.NURSE ---
0302 - Poison Control contacted with new lab results. Bessy, from pharmacy, stated supportive care at this time and does not need further interventions at this time.
[2023-03-03] MEDS: LORazepam INJ (*CRX) 2 MG/ML VIAL IM ×2 (03:45→19:55)
--- NOTE | 2023-03-03 03:50 | PC.NURSE ---
0320 - Pt kept getting up out of bed and attempting to walk around. RN place pt back into bed and walked back to the nursing station. RN heard pt fall and immediately checked on pt. Assisted pt up and moved pt to rm 6. Notified provider and place a sitter at bedside.
[2023-03-03 04:00] VITALS: BP 155/110; PULSE 91; RESP 20; O2SAT 97
[2023-03-03] MEDS: KETAMINE HCL (*CRX) 500 MG/10 ML VIAL 140 MG IM ×2 (05:18→11:45)
[2023-03-03 05:52] VITALS: O2SAT 95
--- NOTE | 2023-03-03 08:54 | PC.NURSE ---
pt sedated, pt has equal chest rise and fall noted. pt will see Crisis when she has woken up
--- NOTE | 2023-03-03 10:43 | PC.NURSE ---
PT PLACED IN SOFT RESTRAINTS, PT UNABLE TO FOLLOW DIRECTIONS RELATED TO HER SAFETY. IN BILATERAL SOFT WRIST RESTRAINTS
--- NOTE | 2023-03-03 11:15 | PC.NURSE ---
Crisis here to speak with patient, mom at bedside. Pt uncooperative and thrashing around in bed attempting to get up. Restraints in place.
--- NOTE | 2023-03-03 11:40 | PC.NURSE ---
Crisis sent patients chart to 3 different facilities, awaiting placement. Mom of patient updated on plan.
--- NOTE | 2023-03-03 11:43 | PC.NURSE ---
Pt continues to yell out moaning, uncomprehensible words. Unable to redirect. Pt trying to get out of restraints and out of bed. Medication ordered and to be given.
[2023-03-03 12:01] VITALS: BP 115/63; PULSE 98; RESP 20; O2SAT 99
[2023-03-03] MEDS: chlorproMAZINE HCL INJ 50 MG/2 ML AMP 25 MG IM ×2 (14:03→18:49)
--- NOTE | 2023-03-03 14:03 | PC.NURSE ---
Pt pulling brief off and peed all over the bed and floor. L wrist restraint off. Pt still yelling and trying to climb out of bed. Dr. Rossi notified and meds given.
--- NOTE | 2023-03-03 16:01 | PC.NURSE ---
Food tray ordered for patient, pt currently sleeping. Mom at bedside.
[2023-03-04] MEDS: LORazepam INJ (*CRX) 2 MG/ML VIAL (03:16)
[2023-03-04] MEDS: chlorproMAZINE HCL INJ 50 MG/2 ML AMP 25 MG IM (03:16)
--- NOTE | 2023-03-04 03:29 | PC.NURSE ---
spoke with megan production utility worker requesting an update on placement on patient. sugar mill worker states that they will follow up after 9 am
--- NOTE | 2023-03-04 03:48 | PC.NURSE ---
Per Dr. Beth give 250mg Ketamine IM. Patient has not calmed down after Ativan 2mg IM.
[2023-03-04] MEDS: KETAMINE HCL (*CRX) 500 MG/10 ML VIAL 250 MG IM (03:49)
[2023-03-04 03:55] VITALS: BP 116/78; PULSE 78; RESP 20; O2SAT 99
--- NOTE | 2023-03-04 04:10 | PC.NURSE ---
[facility] called and declined patient due to open felony
[2023-03-04 07:20] VITALS: BP 126/79; PULSE 95; RESP 18; O2SAT 97
--- NOTE | 2023-03-04 07:40 | PC.NURSE ---
Restrains taken off, pt is eating breakfast, still confuse and yelling out her mom.
[2023-03-04] MEDS: LORazepam INJ (*CRX) 2 MG/ML VIAL IM (08:37)
--- NOTE | 2023-03-04 08:40 | PC.NURSE ---
Pt is unable to redirect, yelling out, use unappropriated language, disturbing other pt. Pt continues to yell out moaning, uncomprehensible words. Pt is getting out of bed, very unsteady, danger to self and others, pt is back in restrains. Medication ordered and to be given.
[2023-03-04] MEDS: HYDROcodone/acetaminophen (*CRX) 10-325 MG TABLET 1 TAB PO ×2 (10:50→15:48)
--- NOTE | 2023-03-04 11:06 | PC.NURSE ---
Pt is manic at this time. pt sts, the bruising is new on her wrist and ankles. pt has old bruising noted on sara wrist and ankles. Bruising is brown in color
--- NOTE | 2023-03-04 11:17 | PC.NURSE ---
face sheet faxed to [facility] in [place]
--- NOTE | 2023-03-04 11:35 | PC.NURSE ---
[id number] faxed chart to [id number] faxed chart to [facility]
--- NOTE | 2023-03-04 11:44 | PC.NURSE ---
Pt is displaying drug seeking behavior. Pt was given po pain meds and currently is denying pain. pt is off restraints and is calm, cooperative but will not make eye contact. family member at bedside
--- NOTE | 2023-03-04 12:37 | PC.NURSE ---
[facility]
--- NOTE | 2023-03-04 12:53 | PC.NURSE ---
pt is resting with closed eyes. abc are wnl nad. airway is patent,spontaneous and self maintained. pt appears pain free
--- NOTE | 2023-03-04 13:26 | PC.NURSE ---
Received call from CRISIS, Pt was denied from [facility] due to open old felony case. Pt chart faxed to [facility] in [facility], [facility] will check on the old felony.
--- NOTE | 2023-03-04 15:06 | PCCCNOTE ---
Phone call received from Jessica from [facility], states that [facility] denied due to felony that they discovered through [facility]. Per Jessica they ran a search through [facility] and which did not yield any results. Update: [facility]: Awaiting call back [facility]: Chart fax'd pending [facility]- denied [facility]-denied [facility]-left message Jessica to call [facility] and [facility]
[2023-03-04] MEDS: LORazepam (*CRX) 1 MG TABLET PO (15:37)
--- NOTE | 2023-03-04 16:21 | PC.NURSE ---
pt sts that she took 90mg of diltiazem at home and then took 180 mg po about 30 minutes later. notified
[2023-03-04 17:14] VITALS: BP 129/75; PULSE 75; RESP 18; TEMP 36.7; O2SAT 95
--- NOTE | 2023-03-04 17:43 | PC.NURSE ---
pt is resting with closed eyes. pt can be cooperative at times.
--- NOTE | 2023-03-04 18:36 | PC.NURSE ---
pt is resting with closed eyes. pt is calm and cooperative after mediations. pt's mom got her a [employer] sandwich and she ate the whole sandwich. pt is manic. pt awaits placement
--- NOTE | 2023-03-04 18:40 | PC.NURSE ---
Pt was denied from [facility].
--- NOTE | 2023-03-04 21:04 | PC.NURSE ---
[facility] CALLED AND NOTIFIED US THAT THEY ARE DECLINING TO TAKE THIS PT BASED ON FELONY CHARGES.
--- NOTE | 2023-03-04 21:50 | PC.NURSE ---
Awaiting acceptance from [facility]. Pt resting at this time.
--- NOTE | 2023-03-04 21:51 | PC.NURSE ---
Pts sister contacted and updated by this RN. Pt called her mother with hospital phone to update.
[2023-03-05] MEDS: HYDROcodone/acetaminophen (*CRX) 10-325 MG TABLET 1 TAB PO (00:28)
--- NOTE | 2023-03-05 00:30 | PC.NURSE ---
Pt awake at this time. pt woke up and began screaming Give me a fucking pain pill . Pt has complaints of back pain. This RN administered pain medication ordered by provider and pt stated to this RN get out of here bitch . Pt has continued to be verbally abusive to staff any time she is awake.
--- NOTE | 2023-03-05 03:54 | PC.NURSE ---
Pt chart faxed to [facility] at this time.
[2023-03-05] MEDS: LORazepam INJ (*CRX) 2 MG/ML VIAL IM (04:04)
[2023-03-05 04:13] VITALS: BP 108/60; PULSE 96; RESP 12; TEMP 36.8; O2SAT 96
[2023-03-05 07:25] VITALS: RESP 14
[2023-03-05 08:55] VITALS: RESP 14
[2023-03-05] MEDS: NITROFURANTOIN MONOHYD MACROCR 100 MG CAP PO (09:01)
--- NOTE | 2023-03-05 09:47 | PC.NURSE ---
assessed by Crisis and pt given safety plan. Pt currently denies being SI or HI
[2023-03-05 10:08] VITALS: BP 124/72; PULSE 76; RESP 16; TEMP 36.8; O2SAT 100
== END 2023-03-05 10:10 | disposition home or self-care (01) ==
PROVIDERS: Emergency Medicine; Emergency Provider Preventive Medicine Aerospace Medicine; PCP Internal Medicine Gastroenterology
DX: F31.2 Bipolar disorder, current episode manic severe with psychotic features (principal); Z20.822 Contact with and (suspected) exposure to COVID-19; F41.9 Anxiety disorder, unspecified; F17.210 Nicotine dependence, cigarettes, uncomplicated; Z90.710 Acquired absence of both cervix and uterus; Z79.899 Other long term (current) drug therapy
CPT/HCPCS: 36415; 70450; 80053; 80307; 81001; 84443; 85025; 87077; 87086; 87186; 87636; 93005; 96372; 99284; A9270; J1200; J1630; J2060; J3230

== ENCOUNTER 2023-03-27 15:33 | Observation (INO) | payer MEDICARE, MEDICAID, SELFPAY ==
[2023-03-27] VITALS (30 sets, daily range): BP systolic 108–131; BP diastolic 76–99; PULSE 74–163; RESP 15–43; TEMP 36.4–36.6; O2SAT 94–100; BMI 27.7; BMI 27.4
--- NOTE | ~2023-03-27 | XR_ITS ---
EXAMINATION: XR chest 1V portable Exam Date/Time: 03/27/2023 16:25 CDT HISTORY: palpitations Comparison: 05/18/2020. RESULT: Lines, tubes, and devices: None. Lungs and pleura: Slightly low volumes. Mild diffuse reticular opacities. Subsegmental bibasilar opa cities, somewhat nodular appearing in the left lower lung. Cardiomediastinal silhouette: Stable. Other: No acute osseous or upper abdominal finding. IMPRESSION: Mild interstitial edema. Bibasilar opacities likely represent atelectasis. Recommend one month PA and lateral chest follow-up to ensure resolution of the bibasilar opacities given the somewhat nodular a ppearance in the left lower lung. Reviewed, dictated and finalized at location K. IMPRESSION: Mild interstitial edema. Bibasilar opacities likely represent atelectasis. Larry mmend one month PA and lateral chest follow-up to ensure resolution of the biba silar opacities given the somewhat nodular appearance in the left lower lung.
--- NOTE | 2023-03-27 15:34 | ECG_ITS ---
Measurements Intervals [place] Rate: 162 P: [place]: 0 QRS: 55 QRSD: 105 T: 47 QT: 293 QTc: 481 Interpretive Statements ATRIAL FLUTTER/TACHYCARDIA WITH RAPID VENTRICULAR RESPONSE INCOMPLETE RIGHT BUNDLE BRANCH BLOCK ST-T WAVE ABNORMALITY IN ANTEROLAT/INF LEADS- CONSIDER ISCHEMIA ABNORMAL ECG COMPARED TO ECG 03/03/2023 02:32:13 [address] NOW PRESENT ST-T WAVE ABNORMALITY NOW PRESENT Electronically Signed On 03-27-2023 16:35:31 CDT by Tony Chen D.O.
--- NOTE | 2023-03-27 15:45 | PC.NURSE ---
placed on pads on arrival. IV established per EMS and patient on monitor at this time. EKG shown to .
--- NOTE | 2023-03-27 15:52 | ED.ARRPALP ---
HPI - Arrhythmia/Palpitations General Chief Complaint: Arrhythmia/Palpitations Stated Complaint: racing heart Time Seen by Provider: 03/27/23 15:45 History of Present Illness HPI narrative: Patient is a 57-year-old female presenting with chest pain and palpitations. Patient states that she smoked and snorted some meth on Saturday. Since that time she has had chest pain, palpitations, shortness of breath. States that she may have also had some alcohol to help with her symptoms. She told her mother that she was having chest pain so they called EMS and brought her in for evaluation. Currently complains of chest pain. States that she feels hot and she wants a soda. Related Data Home Medications Medication Instructions Recorded Confirmed benztropine 2 mg tablet 2 mg PO QAM AND QPM 04/18/22 03/27/23 moeboeihdp-wwqdsengfwplz-judjtnhd 1 tablet PO Q8H PRN Pain 04/18/22 03/27/23 50 mg-325 mg-40 mg tablet prazosin 5 mg capsule 10 mg PO HS 04/18/22 03/28/23 cyclobenzaprine 10 mg tablet 10 mg PO QHS 11/22/22 03/27/23 desipramine 150 mg tablet 300 mg PO QHS 11/22/22 03/28/23 hydrocodone 10 mg-acetaminophen 1 tablet PO Q8H PRN Pain 11/22/22 03/27/23 325 mg tablet ondansetron HCl 4 mg tablet 4 mg PO Q8H 11/22/22 03/27/23 chlorpromazine 100 mg tablet 100 mg PO Q12H 03/27/23 03/28/23 buspirone 15 mg tablet 15 mg PO Q8H 03/28/23 03/28/23 gabapentin 300 mg capsule 600 mg PO Q12H 03/28/23 03/28/23 Allergies Allergy/AdvReac Type Severity Reaction Status Date / Time grass pollen Allergy Intermediate Hives Verified 03/27/23 15:37 amoxicillin [From Augmentin] Allergy Hives Verified 03/27/23 15:37 asenapine [From Saphris] Allergy Hives Verified 03/27/23 15:37 bacitracin Allergy Rash Verified 03/27/23 15:37 [From Neosporin ([id number])] clavulanic acid Allergy Hives Verified 03/27/23 15:37 [From Augmentin] erythromycin base Allergy Hives Verified 03/27/23 15:37 haloperidol [From Haldol] Allergy Swelling Verified 03/27/23 15:37 of Lip/Tongue/Throat latex Allergy Rash Verified 03/27/23 15:37 neomycin Allergy Rash Verified 03/27/23 15:37 [From Neosporin ([id number])] olanzapine [From Zyprexa] Allergy Swelling Verified 03/27/23 15:37 of Lip/Tongue/Throat polymyxin B Allergy Rash Verified 03/04/23 12:49 [From Neosporin ([id number])] risperidone [From Risperdal] Allergy Hives Verified 03/04/23 12:49 tramadol [From Ultram] Allergy Rash Verified 03/04/23 12:49 ciprofloxacin AdvReac Vomiting Verified 03/04/23 12:49 ibuprofen AdvReac Vomiting Verified 03/04/23 12:49 Steriod AdvReac Agitated Uncoded 03/04/23 12:49 Review of Systems Review of Systems: All systems reviewed & are unremarkable except as noted in HPI and below PMFSH Past Medical History Medical History Ankle fracture, lateral malleolus, closed December 2022 Anxiety Back pain Bipolar mood disorder Distal radial fracture December 2022 Drug overdose Migraine Seizure Suicide attempt Surgical History Surgical History H/O foot surgery 2021 X2 H/O: hysterectomy 2000 History of back surgery 1999 Family History Family History Father Alcoholism Grandparent Diabetes mellitus Hypertension Mother Kidney disease Social History Social History Smoking packs per day: 1.5 Smoking cigarettes per day: 30.0 Years smoked: 47 Smoking pack-years: 70.50 Smoking status: Current every day smoker Tobacco type: cigarettes Second hand tobacco smoke exposure: No Alcohol intake: former Substance use: current Substance use type: painkillers and methamphetamine Other substance usage details: something for headaches Last use: 03/25/23 Lack of Transportation: No Lack of Food
[2023-03-27 15:56] LABS: Basophils Percent Auto 0.3 % (0.2-1.2); Eosinophils Absolute Auto 0.1 K/mm3 (0-0.3); Eosinophils Percent Auto 0.4 % (0-4.4); Hematocrit 44.1 % (37.0-47.0); Hemoglobin 14.8 g/dL (12.0-15.0); Immature Granulocyte Absolute 0.04 K/mm3 (0.00-0.031); Immature Granulocyte Percent A 0.3 % (0-0.5); Lymphocytes Absolute Auto 1.79 K/mm3 (0.9-3.2); Lymphocytes Percent Auto 14.3 % (18.3-44.2); Mean Corpuscular HGB Conc 33.6 g/dl (32-36); Mean Corpuscular Hemoglobin 35.4 pg (26-34); Mean Corpuscular Volume 105.5 fl (80-100); Monocytes Absolute Auto 0.9 K/mm3 (0.1-0.6); Neutrophils Absolute Auto 9.7 K/mm3 (1.3-6.7); Neutrophils Percent Auto 77.7 % (45.5-73.1); Platelet Count Result 336 k/mm3 (150-375); Red Blood Count 4.18 M/mm3 (4.2-5.4); Red Cell Distribution Width 13.5 % (11.5-14.5); White Blood Count 12.5 K/mm3 (4.5-10.0)
[2023-03-27] MEDS: SODIUM CHLORIDE 0.9% IV 1,000 ML 999 ML IV CONT ×2 (15:58→15:59)
[2023-03-27] MEDS: ONDANSETRON INJ 4 MG/2 ML VIAL IV PUSH ×2 (15:58→16:54)
[2023-03-27] MEDS: HYDROmorphone HCL INJ (*CRX) 1 MG/ML SYR IV PUSH (15:58)
[2023-03-27] MEDS: ASPIRIN 81 MG CHEWABLE TABLET 324 MG PO (15:58)
[2023-03-27 16:10] LABS: Alanine Aminotransferase 41 U/L (6-35); Albumin Level 4.2 g/dL (3.5-5.1); Alkaline Phosphatase 135 U/L (38-126); Anion Gap 9 mmol/L (8-16); Aspartate Amino Transferase 44 U/L (14-36); Bilirubin,Total 0.7 mg/dL (0.2-1.3); Blood Urea Nitrogen 6 mg/dL (7-17); Carbon Dioxide 24 mmol/L (22-30); Chloride 104 mmol/L (98-107); Estimated CRCL calculation 121 ml/min; Estimated Glomerular Filt Rate > 60; Glucose 281 mg/dL (65-110); Lipase 45 U/L (23-300); Potassium 2.5 mmol/L (3.4-5.0); Sodium 137 mmol/L (137-145)
[2023-03-27 16:16] LABS: INR 0.9; Prothrombin Time 12.7 Seconds (11.1-14.7); Troponin I < 0.012 ng/mL (0.000-0.034)
[2023-03-27 16:17] LABS: Partial Thromboplastin Time 25.9 SECONDS (22.3-36.8)
--- NOTE | 2023-03-27 16:28 | ECG_ITS ---
Measurements Intervals [place] Rate: 141 P: 196 [place]: 138 QRS: 52 QRSD: 115 T: -6 QT: 307 QTc: 472 Interpretive Statements ATRIAL FLUTTER/TACHYCARDIA WITH RAPID VENTRICULAR RESPONSE INCOMPLETE RIGHT BUNDLE BRANCH BLOCK LOW QRS VOLTAGE IN PRECORDIAL LEADS BORDERLINE ST-T WAVE ABNORMALITY- ANT/INF LEADS ABNORMAL ECG COMPARED TO ECG 03/27/2023 15:35:27 NO SIGNIFICANT CHANGES Electronically Signed On 03-27-2023 21:01:53 CDT by Tony Chen D.O.
[2023-03-27 16:29] LABS: Platelet Estimate Adequate (Adequate); Schistocytes None Seen (NORMAL)
[2023-03-27 16:30] LABS: Hypochromasia 1+ (NORMAL)
[2023-03-27 16:31] LABS: Ethanol < 10 mg/dL (<10); Lactic Acid Reflex 2.9 mmol/L (0.7-2.0); Magnesium 1.7 mg/dL (1.6-2.3)
[2023-03-27] MEDS: POTASSIUM CHLORIDE INJ 40 MEQ in SODIUM CHLORIDE 0.9% IV 500 ML 130 MEQ IVPB (16:42)
[2023-03-27] MEDS: LACTATED RINGERS 1,000 ML 999 ML IV CONT ×2 (16:44→17:48)
[2023-03-27 16:50] LABS: Appearance Urine Clear (Clear); Bacteria Urine 1+ /hpf; Bilirubin Urine Negative (Negative); Blood Urine Negative (Negative); Color Urine Yellow (Yellow); Glucose Urine UA Trace mg/dL (Negative); Ketones Urine Negative (Negative); Leukocyte Esterase Ur Trace LEU/UL (Negative); Nitrate Urine Positive (Negative); Non Pathogenic Casts 0-2; Protein Urine 2+ mg/dL (Negative); RBC Urine 0-2 /hpf (0-2); Specific Grav Ur 1.008 (1.001-1.035); Squamous Epithelial Cell Urine None seen /hpf (Few)
[2023-03-27 17:04] LABS: Amphetamine Screen Urine Negative (Negative); Barbiturate Screen Urine Positive (Negative); Benzodiazepines Screen Urine Negative (Negative); Cannabinoid Screen Urine Negative (Negative); Cocaine Screen Urine Negative (Negative); Methadone Screen Urine Negative (Negative); Opiate Screen Urine Negative (Negative); Phencyclidine Screen Urine Negative (Negative)
[2023-03-27 17:07] LABS: Add Urine Microscopic? YES
[2023-03-27] MEDS: METOPROLOL TARTRATE INJ 5 MG/5 ML VIAL IV PUSH ×2 (17:48→18:28)
[2023-03-27] MEDS: POTASSIUM CHLORIDE 20 MEQ PACKET (FOR LIQUID) 40 MEQ PO (18:27)
[2023-03-27] MEDS: HYDROmorphone HCL INJ (*CRX) 1 MG/ML SYR 0.5 MG IV PUSH (18:27)
[2023-03-27 19:19] LABS: Reflex Lactic Acid Yes or No Add Lactic
[2023-03-27 19:19] LABS: Troponin I 0.012 ng/mL (0.000-0.034)
--- NOTE | 2023-03-27 20:09 | PM.IMHP ---
H&P: HPI History of Present Illness Date/Time: 03/27/23 20:09 Chief Complaint: Chest pain and palpitation. Narrative: Patient is a 57-year-old female with a past medical history including but not limited to substance use disorder, depressive disorder, who presented to the emergency department with complaints of chest pain and palpitations.? The patient is a fluid, receiving disability living at home with her mother who is chronically ill. She has limited social support and looking for a new mental health provider. Patient states that she smoked and snorted some meth on Saturday.? She had been feeling more depressed and hopeless recently. Since that time she has had chest pain, palpitations, shortness of breath.? States that she may have also had some alcohol to help with her symptoms.? She told her mother that she was having chest pain so they called EMS and brought her in for evaluation.? Currently complains of chest pain.? At the time of my evaluation the patient is sad, tearful and appears to be depressed. In the ED EKG shows atrial flutter/supraventricular tachycardia with rapid ventricular response. The patient is started on IV fluid and receive IV Lopressor. Initial vital signs showed a pulse rate of 163, respiration 28, pulse ox 100% on room air. Repeat vital signs show temperature of 97.5?, pulse rate 149, respiration 20, blood pressure 127/91 and a pulse of 99% on room air. She was started on IV fluid, administered vagal maneuvers without much improvement. Hypokalemia was supplemented. The hospital medicine service was consulted for further evaluation management. Patient will be admitted to IMU for close cardiovascular monitoring. The patient was to be a the inner. Currently she is depressed; this warrants a psychiatry evaluation. . Review of Systems Review of Systems: All systems reviewed & are unremarkable except as noted in HPI and below PMFSH Past Medical History Medical History Ankle fracture, lateral malleolus, closed December 2022 Anxiety Back pain Bipolar mood disorder Distal radial fracture December 2022 Drug overdose Migraine Seizure Suicide attempt Surgical History Surgical History H/O foot surgery 2021 X2 H/O: hysterectomy 2001 History of back surgery 1999 Family History Family History Father Alcoholism Grandparent Diabetes mellitus Hypertension Mother Kidney disease Social History Social History Smoking packs per day: 1.5 Smoking cigarettes per day: 30.0 Years smoked: 47 Smoking pack-years: 70.50 Smoking status: Current every day smoker Tobacco type: cigarettes Second hand tobacco smoke exposure: No Alcohol intake: former Substance use: current Substance use type: painkillers and methamphetamine Other substance usage details: something for headaches Last use: 03/25/23 Lack of Transportation: No Lack of Food: Never True Current Housing: I Have Housing Concerned About Future Housing: YES Difficulty Paying Gas/Electric Bills: No Difficulty Paying for Meds: No Currently Unemployed: No Education: Grade School Difficulty w/ Childcare or Family Care: No Living arrangements: with family Occupation/Education: unemployed Spiritual care concerns: No Meds Home Medications and Allergies Home Medications Medication Instructions Recorded Confirmed Type benztropine 2 mg tablet 2 mg PO QAM AND QPM 04/18/22 03/27/23 History xnpttmeizn-vswxukofwowqi-dsktoypa 1 tablet PO Q8H PRN Pain 04/18/22 03/27/23 History 50 mg-325 mg-40 mg tablet prazosin 5 mg capsule 5 mg PO HS 04/18/22 03/27/23 History chlorpromazine 25 mg tablet 100 mg PO QHS 30 days #120 tabs 04/21/22 03/27/23 Rx cyclobenzaprine 10 mg tablet 10 mg PO QHS 11/22/22 03/27/23 History
--- NOTE | 2023-03-27 20:13 | ECG_ITS ---
Measurements Intervals [place] Rate: 80 P: 72 [place]: 207 QRS: 32 QRSD: 111 T: 43 QT: 404 QTc: 468 Interpretive Statements SINUS RHYTHM INTRAVENTRICULAR CONDUCTION DELAY BORDERLINE ST-T WAVE ABNORMALITY- ANTERIOR LEADS BORDERLINE ECG COMPARED TO ECG 03/27/2023 17:41:56 SINUS RHYTHM NOW PRESENT INTRAVENTRICULAR CONDUCTION DELAY NOW PRESENT Electronically Signed On 03-27-2023 21:02:47 CDT by Tony Chen D.O.
--- NOTE | 2023-03-27 21:06 | ADMGEN ---
This patient, Mahnaz Oseguera, was admitted to IMU Room 206-01. Patient/family oriented to hospital policies and general routines including ID bracelet, bed and alarms, visiting hours, pain management, procedures, bathroom and other care routines, personal items, smoking policy, room service/diet, and visiting hours. Information on how to activate the Rapid Response Team has been discussed. Patient/Family are encouraged to report perceived risks to care and to ask questions if they do not understand what they are told or what they should do.
[2023-03-27 21:14] LABS: Anion Gap 6 mmol/L (8-16); Blood Urea Nitrogen 4 mg/dL (7-17); Calcium 8.3 mg/dL (8.4-10.2); Carbon Dioxide 31 mmol/L (22-30); Chloride 105 mmol/L (98-107); Estimated CRCL calculation 121 ml/min; Estimated Glomerular Filt Rate > 60; Glucose 146 mg/dL (65-110); Potassium 2.6 mmol/L (3.4-5.0); Sodium 142 mmol/L (137-145)
[2023-03-27 21:52] LABS: Troponin I 0.026 ng/mL (0.000-0.034)
--- NOTE | 2023-03-27 22:25 | PC.NURSE ---
Patient refusing to answer any admission questions at this time. Patient states, it's 10:30 at night and I am not answering any questions this late. Explained to patient that the questions are necessary to know her history and baseline for treatment and to call if she changes her mind. Patient continually using call light for a drink...refused water, was given a soda.
--- NOTE | 2023-03-27 23:55 | PC.NURSE ---
Patient agreed to answer admission questions.
[2023-03-28] VITALS (13 sets, daily range): BP systolic 105–139; BP diastolic 50–75; PULSE 62–134; RESP 14–20; TEMP 36.4–36.9; O2SAT 93–100
--- NOTE | 2023-03-28 | ECHO_ITS ---
Patient Info Name: Mahnaz Oseguera Age: 57 years : 1965 Gender: Female Ht: 62 in Wt: 150 lbs BSA: 1.74 m2 HR: 101 bpm BP: 136 / 75 mmHg Heart Rhythm: Sinus Rhythm Technical Quality: Fair Exam Date: 03/28/2023 2:15 PM Exam Location: [facility] Pulmonary Exam Room: [facility] Patient Status: Inpatient Admit Date: 03/27/2023 Staff Ordering Physician: Raghavendra Fernando MD Chemical Analyst: Fartun Mullins RDCS Attending Provider: Kristin Villafuerte MD Referring Physician: Abdullahi GRAVES; Exam Type: CA echo doppler color flow Study Info Indications - CHEST PAIN Complete two-dimensional, color flow and Doppler transthoracic echocardiogram is performed. Summary 1. Complete two-dimensional, color flow and Doppler transthoracic echocardiogram is performed. 2. Left ventricular chamber dimension is normal. 3. Left ventricular systolic function is normal, estimated at 60-65%. 4. There is no increased left ventricular wall thickness. 5. The left ventricular diastolic function is grade I diastolic dysfunction. 6. Left atrial chamber dimension is mildly enlarged. 7. There is mild tricuspid valve regurgitation. Left Ventricle Left ventricular chamber dimension is normal. Left ventricular systolic function is normal, estimated at 60-65%. There is no increased left ventricular wall thickness. Left ventricular septal wall motion is normal. The left ventricular diastolic function is grade I diastolic dysfunction. Right Ventricle Right ventricular chamber dimension is normal. Right ventricular systolic function is normal. Left Atria Left atrial chamber dimension is mildly enlarged. Right Atria Right atrial chamber dimension is normal. Atrial Septum Intact interatrial septum visualized by color flow imaging. Aortic Valve The aortic valve is trileaflet. There is mild aortic valve sclerosis. There is no aortic valve stenosis. There is trace aortic valve regurgitation. Pulmonic Valve The pulmonic valve is normal. There is no pulmonic valve stenosis. There is trace pulmonic regurgitation. Mitral Valve The mitral valve has normal leaflets. There is no mitral valve stenosis. There is trace mitral valve regurgitation. Tricuspid Valve The tricuspid valve leaflets are normal. There is no significant tricuspid valve stenosis. There is mild tricuspid valve regurgitation. No pulmonary hypertension, estimated pulmonary arterial systolic pressure is 29 mmHg. Pericardium/Pleural The pericardium appears normal. There is trivial pericardial effusion. Inferior Vena Cava Normal inferior vena cava with >50% collapse upon inspiration consistent with normal right atrial pressure, 10 mmHg. Aorta The aortic root size at the sinus of Valsalva is normal. The prox ascending aorta size is normal. Left Ventricular Outflow Tract Name Value Normal LVOT 2D LVOT Diameter 2.0 cm LVOT Doppler LVOT Peak Gradient 9 mmHg LVOT Mean Gradient 5 mmHg LVOT VTI 27 cm LVOT VTI/AV VTI Ratio 1.2 LVOT Stroke Volume 84 ml LVOT CO 20.6 l/min
--- NOTE | 2023-03-28 03:54 | ECG_ITS ---
Measurements Intervals [place] Rate: 84 P: 84 [place]: 161 QRS: 26 QRSD: 99 T: 39 QT: 403 QTc: 477 Interpretive Statements SINUS RHYTHM LOW QRS VOLTAGE IN PRECORDIAL LEADS BORDERLINE ECG COMPARED TO ECG 03/27/2023 20:19:01 NO SIGNIFICANT CHANGES Electronically Signed On 03-28-2023 11:31:43 CDT by Tony Chen D.O.
[2023-03-28] MEDS: HYDROcodone/acetaminophen (*CRX) 10-325 MG TABLET 1 TAB PO ×3 (03:59→20:18)
[2023-03-28 04:40] LABS: Hematocrit 40.2 % (37.0-47.0); Hemoglobin 13.1 g/dL (12.0-15.0); Mean Corpuscular HGB Conc 32.6 g/dl (32-36); Mean Corpuscular Hemoglobin 34.9 pg (26-34); Mean Corpuscular Volume 107.2 fl (80-100); Mean Platelet Volume 10.2 fl (7.4-10.4); Platelet Count Result 278 k/mm3 (150-375); Red Blood Count 3.75 M/mm3 (4.2-5.4); Red Cell Distribution Width 13.6 % (11.5-14.5); White Blood Count 7.8 K/mm3 (4.5-10.0)
[2023-03-28] MEDS: KCL 20 MEQ/SW 100 ML 100 ML 50 MEQ IVPB (04:46)
[2023-03-28 04:59] LABS: Anion Gap 2 mmol/L (8-16); Blood Urea Nitrogen 2 mg/dL (7-17); Calcium 8.8 mg/dL (8.4-10.2); Carbon Dioxide 30 mmol/L (22-30); Chloride 108 mmol/L (98-107); Estimated CRCL calculation 115 ml/min; Estimated Glomerular Filt Rate > 60; Glucose 108 mg/dL (65-110); Sodium 140 mmol/L (137-145)
[2023-03-28] MEDS: POTASSIUM CHLORIDE 20 MEQ ER TABLET 40 MEQ PO ×2 (07:12→14:13)
[2023-03-28] MEDS: ACETAMINOPHEN/BUTALBITAL/CAFFEINE 325-50-40 MG TABLET (FIORICET) 1 TAB PO ×2 (07:20→17:24)
--- NOTE | 2023-03-28 08:55 | PM.IMPN ---
Progress Note: A&P Assessment and Plan (1) Chest pain: Code(s): R07.9 - Chest pain, unspecified Status: Acute Assessment and Plan: The patient presented with new onset acute chest pain. Two sets of troponin are negative. Minor increase of troponin in the 3rd set. Lactate elevated at 2.9 at presentation. Repeat lactic acid is 2.2. Patient is tachycardic in the setting of recent methamphetamine use her presentation is likely secondary to her substance use disorder. Patient was started on IV fluid and IV Lopressor. risk of acs consult replanting machine operator for evaluation and treatment (2) Atrial tachycardia: Code(s): I47.1 - Supraventricular tachycardia Status: Acute Assessment and Plan: Likely secondary to substance use disorder. Patient appropriately. Lopressor. She is in no dynamic least stable. First EKG with atrial flutter versus supraventricular tachycardia. consult replanting machine operator (3) Hypokalemia: Code(s): E87.6 - Hypokalemia Status: Acute Assessment and Plan: Supplemented. Repeat potassium remained low. Will continue supplementation. (4) Substance use disorder: Code(s): F19.90 - Other psychoactive substance use, unspecified, uncomplicated Status: Acute (5) Bipolar mood disorder: Code(s): F31.9 - Bipolar disorder, unspecified Status: Acute Assessment and Plan: Patient follows up with a mental health provider as an outpatient. Her provider is Yvonne out of the area she is in the process of securing the service for mental health. she doesn't want to long time support but pt accepts resuscitation in emergency. denies SI NO need of psychiatric consult now (6) Depression: Code(s): F32.A - Depression, unspecified Status: Acute Assessment and Plan: Resume outpatient medication. Plan Patient admitted under observation. Code status DNR. DVT prophylaxis with Lovenox. Subjective Date/time seen: 03/28/23 08:55 Interval history: pt has no chest pain now also denies SI or suicidal attempt before. no new issues or events before Exam Narrative: GENERAL: Disheveled, appears chronically unwell, anxious, intermittently tearful HEAD: Normocephalic, atraumatic. EYES: PERRLA and EOMI. ENT: Poor dentition throughout NECK: Supple. CHEST: Clear to auscultation. No respiratory distress. HEART: Tachycardic, regular rhythm ABDOMEN: Soft, nontender, nondistended EXTREMITIES: Normal range of motion. No edema. SKIN: Warm, dry NEURO: No focal deficits. Alert and oriented x3. PSYCH: Normal mood and affect. Objective Data Vital Signs Vital Signs: Vital Signs - 24 hr 03/27/23 15:30 03/27/23 15:35 03/27/23 15:37 Temperature 97.5 F L Pulse Rate 163 H 163 H Respiratory Rate 28 H Blood Pressure Pulse Oximetry 100 Oxygen Delivery Room Air 03/27/23 16:12 03/27/23 16:31 03/27/23 16:59 Temperature Pulse Rate 149 H 137 H 145 H Respiratory Rate 20 36 H 21 H Blood Pressure 127/91 H 131/92 H 122/88 Pulse Oximetry 99 98 98 Oxygen Delivery 03/27/23 17:48 03/27/23 17:05 03/27/23 17:29 Temperature Pulse Rate 139 H 145 H Respiratory Rate 15 Blood Pressure Pulse Oximetry 98 100 Oxygen Delivery 03/27/23 17:31 03/27/23 17:47 03/27/23 17:50 Temperature Pulse Rate 141 H 141 H 139 H Respiratory Rate 25 H 38 H 22 H Blood Pressure 130/94 H Pulse Oximetry 96 100 100 Oxygen Delivery 03/27/23 17:52 03/27/23 17:54 03/27/23 18:10 Temperature Pulse Rate 127 H 126 H 128 H Respiratory Rate 23 H 21 H 43 H Blood Pressure 126/93 H 128/96 H 120/99 H Pulse Oximetry 99 100 100 Oxygen Delivery 03/27/23 18:28 03/27/23 18:37 03/27/23 18:46 Temperature Pulse Rate 128 H 127 H 129 H Respiratory Rate 20 20 Blood Pressure Pulse Oximetry 100 Oxygen Delivery 03/27/23 18:51 03/27/23 19:00 03/27/23 19:01 Temperature Pulse Rate 128 H 130 H 129 H
[2023-03-28] MEDS: BENZTROPINE MESYLATE 1 MG TABLET 2 MG PO ×2 (09:56→20:17)
[2023-03-28] MEDS: ENOXAPARIN 40 MG/0.4 ML SYRINGE SUB-Q (09:56)
--- NOTE | 2023-03-28 10:37 | WPDCNPSYCH ---
HPI Data of Consult Date/Time: 03/28/23 10:37 Requesting Physician: Kristin Villafuerte MD Primary Care Provider: Neil Barbour, Consult Narrative Narrative: Mahnaz Oseguera is a 57 year old female whose psychiatric consult was initially called from the ED because patient is 57 and requesting a DMR. I spoke with Dr. Thomas for report on the patient as well as the patient's nurse. The patient has reversed her earlier DNR preference and is now Full Code. Consequently, Dr. Thomas has told me he plans to cancel the Psychiatry consult. I discussed the consult note I made 04/2022. I expressed a concern that patient has a h/o suicide attempts including a [place] overdose that required hemodialysis and other overdoses that required ventilatory support. My concern is that her outpatient prescriber has been prescribing medications in 90 day amounts is a patient with significant overdose history and to consider prescribing in smaller amounts. Also, I mentioned that the patient reported using methamphetamine before her admission and has a h/o prescribed hydrocodone/acetaminophen; but her urine drug screen was negative for amphetamines and negative for opiates. But her clinical presentation with a heart rate of 163 is consistent with amphetamines. Since the consult is cancelled, I will not see the patient. [facility] Past Medical History Medical History Ankle fracture, lateral malleolus, closed December 2022 Anxiety Back pain Bipolar mood disorder Distal radial fracture December 2022 Drug overdose Migraine Seizure Suicide attempt Surgical History Surgical History H/O foot surgery 2021 X2 H/O: hysterectomy 2000 History of back surgery 1999 Family History Family History Father Alcoholism Grandparent Diabetes mellitus Hypertension Mother Kidney disease Social History Social History Smoking packs per day: 1.5 Smoking cigarettes per day: 30.0 Years smoked: 47 Smoking pack-years: 70.50 Smoking status: Current every day smoker Tobacco type: cigarettes Second hand tobacco smoke exposure: No Alcohol intake: former Substance use: current Substance use type: painkillers and methamphetamine Other substance usage details: something for headaches Last use: 03/25/23 Lack of Transportation: No Lack of Food: Never True Current Housing: I Have Housing Concerned About Future Housing: YES Difficulty Paying Gas/Electric Bills: No Difficulty Paying for Meds: No Currently Unemployed: No Education: Grade School Difficulty w/ Childcare or Family Care: No Living arrangements: with family Occupation/Education: unemployed Spiritual care concerns: No Meds Home Medications and Allergies Home Medications Medication Instructions Recorded Confirmed Type benztropine 2 mg tablet 2 mg PO QAM AND QPM 04/18/22 03/27/23 History smpulobgbg-xrbavyqpcfgxi-tekpybsl 1 tablet PO Q8H PRN Pain 04/18/22 03/27/23 History 50 mg-325 mg-40 mg tablet prazosin 5 mg capsule 10 mg PO HS 04/18/22 03/28/23 History cyclobenzaprine 10 mg tablet 10 mg PO QHS 11/22/22 03/27/23 History desipramine 150 mg tablet 300 mg PO QHS 11/22/22 03/28/23 History hydrocodone 10 mg-acetaminophen 1 tablet PO Q8H PRN Pain 11/22/22 03/27/23 History 325 mg tablet ondansetron HCl 4 mg tablet 4 mg PO Q8H 11/22/22 03/27/23 History chlorpromazine 100 mg tablet 100 mg PO BID 03/27/23 03/27/23 History buspirone 15 mg tablet 15 mg PO Q8H 03/28/23 03/28/23 History gabapentin 300 mg capsule 600 mg PO Q12H 03/28/23 03/28/23 History Allergies Allergy/AdvReac Type Severity Reaction Status Date / Time grass pollen Allergy Intermediate Hives Verified 03/27/23 15:37 amoxicillin [From Augmentin] Allergy Hives Verified 03/27/23 15:37 asenapine [
[2023-03-28] MEDS: ACETAMINOPHEN 325 MG TABLET 650 MG PO (10:50)
[2023-03-28] MEDS: GABAPENTIN 300 MG CAPSULE 600 MG PO ×2 (10:50→20:15)
--- NOTE | 2023-03-28 10:50 | PM.CNCAR ---
Assessment and Plan Assessment and plan (1) Substance use disorder: Code(s): F19.90 - Other psychoactive substance use, unspecified, uncomplicated Status: Acute Assessment and Plan: Counseling performed and psychiatry has been consulted (2) Hypokalemia: Code(s): E87.6 - Hypokalemia Status: Acute Assessment and Plan: Significantly hypokalemic upon admission. Still potassium is only at 3.0. [address] KCL 40 mEq p.o. x2 (3) Atrial tachycardia: Code(s): I47.1 - Supraventricular tachycardia Status: Acute Assessment and Plan: Related to meth use and hypokalemia. 2D echocardiogram Doppler will be ordered. (4) Chest pain: Code(s): R07.9 - Chest pain, unspecified Status: Acute Assessment and Plan: Her chest pain probably related to meth use and tachycardia but underlying ischemia is also not excluded specially given her risk factors. She his up trending troponins but still below the abnormal threshold. Will check a 2D echocardiogram with Doppler and start her on low-dose aspirin 81 mg p.o. daily. Will check a lipid panel. Consider outpatient stress testing (5) Depression: Code(s): F32.A - Depression, unspecified Status: Acute Assessment and Plan: Per hospitalist and psychiatry History of Present Illness History of Present Illness Consult date/time: 03/28/23 10:50 Requesting physician: Benji Thomas MD Consult reason: chest pain Reason For Visit: Hypokalemia Narrative: Reason for consultation: Chest pain Date of service 03/28/2023 Requesting provider: Dr. Thomas History: Patient is a 57-year-old female who does not have known cardiac history but does have significant mental illness as well as substance abuse issues. She was at her sister's house and decided to use some meth. Meth use persisted for 2 days. She started developed some palpitations as well as chest pain and because of the symptoms 911 was called and she was brought to the hospital where she was found to be tachycardic with a heart rate around 160 and what is probable atrial tachycardia. She was given metoprolol which did seem to help her symptoms. Chest pain did not radiate to her arm back neck or jaw but she did seem confused as well as diaphoretic. She has been receiving IV fluids and has a feeling of generalized puffiness but otherwise currently is feeling much better. Heart rate and rhythm has normalized. She actively has no chest pain. She is baseline shortness of breath related to chronic tobacco use but nothing unusual. No syncope, presyncope, paroxysmal nocturnal dyspnea, orthopnea. Review of Systems Review of Systems: All systems reviewed & are unremarkable except as noted in HPI and below Constitutional: Constitutional: Denies body ache(s) Eyes: Eyes: Denies blurry vision ENT: Reports Normal hearing present Cardiovascular: Cardiovascular: Reports chest pain and Reports palpitations Respiratory: Respiratory: Reports dyspnea Gastrointestinal: Gastrointestinal: Denies abdominal pain Genitourinary: Genitourinary: Denies hematuria Musculoskeletal: Musculoskeletal: Denies back pain Integumentary/Breasts: Skin/Breast: Denies dry skin Neurologic: Denies Abnormal speech present Psychiatric: Psychiatric: Reports confusion Endocrine: Endocrine: Reports excessive sweating Hematologic/Lymphatic: Hematologic/Lymphatic: Denies easy bleeding Allergic/Immunologic: Allergic/Immunologic: Denies GI upset with certain foods PMFSH Past Medical History Medical History Ankle fracture, lateral malleolus, closed December 2022 Anxiety Back pain Bipolar mood disorder Distal radial fracture December 2022 Drug overdose Migraine Seizure Suicide attempt Surgical History Surgical History H/O foot surgery 2021 X2 H/O: hysterectomy 2000
[2023-03-28 12:12] LABS: Potassium 3.5 mmol/L (3.4-5.0)
[2023-03-28 12:21] LABS: Cholesterol 188 mg/dL (0-200); HDL Direct 46 mg/dL; Triglycerides 148 mg/dL (<150)
[2023-03-28] MEDS: chlorproMAZINE HCL 25 MG TABLET 100 MG PO ×2 (12:26→20:15)
[2023-03-28] MEDS: ASPIRIN 81 MG ENTERIC TABLET PO (12:26)
[2023-03-28 12:35] LABS: LDL Cholesterol Direct 88 mg/dL
[2023-03-28] MEDS: busPIRone HCL 5 MG TABLET 15 MG PO ×2 (14:12→21:39)
[2023-03-28] MEDS: CYCLOBENZAPRINE HCL 10 MG TABLET PO (20:17)
[2023-03-28] MEDS: PRAZOSIN HCL 5 MG CAPSULE PO (20:17)
--- NOTE | 2023-03-29 07:05 | PC.NURSE ---
Paper documentation exists on this patient due to [facility] downtime on 03/29/23 from to 0700 [] .
--- NOTE | 2023-03-29 07:05 | PC.NURSE ---
Paper documentation exists on this patient due to [facility] downtime on 03/29/23 from to 0700 [] .
[2023-03-29 07:30] LABS: Anion Gap 4 mmol/L (8-16); Blood Urea Nitrogen 12 mg/dL (7-17); Carbon Dioxide 32 mmol/L (22-30); Chloride 107 mmol/L (98-107); Estimated CRCL calculation 115 ml/min; Estimated Glomerular Filt Rate > 60; Glucose 103 mg/dL (65-110); Potassium 4.1 mmol/L (3.4-5.0); Sodium 143 mmol/L (137-145)
[2023-03-29 08:00] VITALS: BP 132/72; PULSE 103; RESP 16; TEMP 36.8; O2SAT 100
[2023-03-29] MEDS: busPIRone HCL 5 MG TABLET 15 MG PO ×2 (08:22→14:32)
[2023-03-29] MEDS: HYDROcodone/acetaminophen (*CRX) 10-325 MG TABLET 1 TAB PO (09:54)
[2023-03-29] MEDS: chlorproMAZINE HCL 25 MG TABLET 100 MG PO (09:54)
[2023-03-29] MEDS: ASPIRIN 81 MG ENTERIC TABLET PO (09:54)
[2023-03-29] MEDS: ENOXAPARIN 40 MG/0.4 ML SYRINGE SUB-Q (09:54)
[2023-03-29] MEDS: GABAPENTIN 300 MG CAPSULE 600 MG PO (09:54)
[2023-03-29] MEDS: BENZTROPINE MESYLATE 1 MG TABLET 2 MG PO (09:55)
[2023-03-29] MEDS: ACETAMINOPHEN/BUTALBITAL/CAFFEINE 325-50-40 MG TABLET (FIORICET) 1 TAB PO (10:01)
[2023-03-29 10:31] LABS: Hematocrit 38.4 % (37.0-47.0); Hemoglobin 12.7 g/dL (12.0-15.0); Mean Corpuscular HGB Conc 33.1 g/dl (32-36); Mean Corpuscular Volume 108.8 fl (80-100); Mean Platelet Volume 9.8 fl (7.4-10.4); Platelet Count Result 269 k/mm3 (150-375); Red Blood Count 3.53 M/mm3 (4.2-5.4); Red Cell Distribution Width 13.9 % (11.5-14.5); White Blood Count 6.4 K/mm3 (4.5-10.0)
--- NOTE | 2023-03-29 11:03 | PM.IMPN ---
Progress Note: A&P Assessment and Plan (1) Chest pain: Code(s): R07.9 - Chest pain, unspecified Status: Acute Assessment and Plan: The patient presented with new onset acute chest pain. Two sets of troponin are negative. Minor increase of troponin in the 3rd set. Lactate elevated at 2.9 at presentation. Repeat lactic acid is 2.2. Patient is tachycardic in the setting of recent methamphetamine use her presentation is likely secondary to her substance use disorder. Received iV fluid and IV Lopressor. echocardiogram was done, normal EF, no significant valvular disease consult web communications specialist for evaluation and treatment, web communications specialist consider such chest pain is possibly related to drug abuse Add aspirin, recommend outpatient stress test (2) Atrial tachycardia: Code(s): I47.1 - Supraventricular tachycardia Status: Acute Assessment and Plan: Likely secondary to substance use disorder. Patient appropriately. Lopressor. She is in no dynamic least stable. First EKG with atrial flutter versus supraventricular tachycardia. consult web communications specialist Add metoprolol 25 mg b.i.d. p.o. Current patient has a sinus rhythm (3) Hypokalemia: Code(s): E87.6 - Hypokalemia Status: Acute Assessment and Plan: Supplemented. Hypokalemia is corrected. (4) Substance use disorder: Code(s): F19.90 - Other psychoactive substance use, unspecified, uncomplicated Status: Acute Assessment and Plan: Patient will follow-up with psychiatrist as outpatient (5) Bipolar mood disorder: Code(s): F31.9 - Bipolar disorder, unspecified Status: Acute Assessment and Plan: Patient follows up with a mental health provider as an outpatient. Her provider is Yvonne out of the area she is in the process of securing the service for mental health. she doesn't want to long time support but pt accepts resuscitation in emergency. denies SI NO need of psychiatric consult now (6) Depression: Code(s): F32.A - Depression, unspecified Status: Acute Assessment and Plan: Resume outpatient medication. Plan Code status full code DVT prophylaxis with Lovenox. Subjective Date/time seen: 03/29/23 11:03 Interval history: pt has no chest pain now, patient also denies shortness of breath, palpitation, abdominal pain, nausea vomiting. Patient is afebrile, hemodynamically stable,. no new issues or events before Exam Narrative: GENERAL: Disheveled, no obvious distress, HEAD: Normocephalic, atraumatic. EYES: PERRLA and EOMI. ENT: Poor dentition throughout NECK: Supple. CHEST: Clear to auscultation. No respiratory distress. HEART: Tachycardic, regular rhythm ABDOMEN: Soft, nontender, nondistended EXTREMITIES: Normal range of motion. No edema. SKIN: Warm, dry NEURO: No focal deficits. Alert and oriented x3. PSYCH: Normal mood and affect. Objective Data Vital Signs Vital Signs: Vital Signs - 24 hr 03/28/23 11:56 03/28/23 16:00 03/28/23 12:00 Temperature 97.8 F 98.4 F Pulse Rate 92 107 H 81 Respiratory Rate 14 20 Blood Pressure 139/69 123/60 Pulse Oximetry 100 97 Oxygen Delivery 03/28/23 16:00 03/28/23 20:03 03/28/23 20:00 Temperature 97.7 F Pulse Rate 107 H 62 134 H Respiratory Rate 18 18 Blood Pressure 106/50 L Pulse Oximetry 93 93 Oxygen Delivery Room Air 03/28/23 20:00 03/28/23 23:16 03/29/23 08:00 Temperature 97.6 F 98.2 F Pulse Rate 99 101 H 103 H Respiratory Rate 18 16 Blood Pressure 105/56 L 132/72 Pulse Oximetry 95 100 Oxygen Delivery Intake/Output Intake/Output: Intake & Output 03/26/23 03/27/23 03/28/23 03/29/23 23:59 23:59 23:59 23:59 Intake Total 4520 1000 1810 Output Total 800 900 700 Balance 3720 100 1110 Meds/Results Medications: Active Medications Generic Name Dose Route Start Last Admin Trade Name Freq PRN Reason Stop Dose Admin Acetaminophen 650 mg
[2023-03-29 11:20] VITALS: PULSE 117
[2023-03-29 12:00] VITALS: PULSE 117
--- NOTE | 2023-03-29 13:06 | PM.DS ---
DS: Admitting Diagnosis Discharge Date Today Admitting Diagnosis Chest pain DS: Discharge Diagnosis Discharge Diagnosis (1) Chest pain: Code(s): R07.9 - Chest pain, unspecified Status: Acute Assessment and Plan: The patient presented with new onset acute chest pain. Two sets of troponin are negative. Minor increase of troponin in the 3rd set. Lactate elevated at 2.9 at presentation. Repeat lactic acid is 2.2. Patient is tachycardic in the setting of recent methamphetamine use her presentation is likely secondary to her substance use disorder. Received iV fluid and IV Lopressor. echocardiogram was done, normal EF, no significant valvular disease consult documentation improvement specialist for evaluation and treatment, documentation improvement specialist consider such chest pain is possibly related to drug abuse Add aspirin, recommend outpatient stress test (2) Atrial tachycardia: Code(s): I47.1 - Supraventricular tachycardia Status: Acute Assessment and Plan: Likely secondary to substance use disorder. Patient appropriately. Lopressor. She is in no dynamic least stable. First EKG with atrial flutter versus supraventricular tachycardia. consult documentation improvement specialist Add metoprolol 25 mg b.i.d. p.o. Currently patient has a sinus rhythm (3) Hypokalemia: Code(s): E87.6 - Hypokalemia Status: Acute Assessment and Plan: Supplemented. Hypokalemia is corrected. (4) Substance use disorder: Code(s): F19.90 - Other psychoactive substance use, unspecified, uncomplicated Status: Acute Assessment and Plan: Patient will follow-up with psychiatrist as outpatient (5) Bipolar mood disorder: Code(s): F31.9 - Bipolar disorder, unspecified Status: Acute Assessment and Plan: Patient follows up with a mental health provider as an outpatient. Her provider is Yvonne out of the area she is in the process of securing the service for mental health. she doesn't want to long time support but pt accepts resuscitation in emergency. denies SI NO need of psychiatric consult now (6) Depression: Code(s): F32.A - Depression, unspecified Status: Acute Assessment and Plan: Resume outpatient medication. Plan Code status full code DVT prophylaxis with Lovenox. DS: Summary Hospital Course Reason for hospitalization: Chest pain Hospital Course: Patient is a 57-year-old female with a past medical history including but not limited to substance use disorder, depressive disorder, who presented to the emergency department with complaints of chest pain and palpitations.? Patient states that she smoked and snorted some meth on Saturday.? She had been feeling more depressed and hopeless recently.? Since that time she has had chest pain, palpitations, shortness of breath.? States that she may have also had some alcohol to help with her symptoms.? She told her mother that she was having chest pain so they called EMS and brought her in for evaluation.? In the ED EKG shows atrial flutter/supraventricular tachycardia with rapid ventricular response.? The patient is started on IV fluid and receive IV Lopressor.? Initial vital signs showed a pulse rate of 163, respiration 28, pulse ox 100% on room air.? Repeat vital signs show temperature of 97.5?, pulse rate 149, respiration 20, blood pressure 127/91 and a pulse of 99% on room air.? She was started on IV fluid, administered vagal maneuvers? without much improvement.? Hypokalemia was supplemented. The following medical issues have been the chest in the hospital (1) Chest pain: ?Code(s): R07.9 - Chest pain, unspecified ?Status:?Acute ?Assessment and Plan: The patient presented with new onset acute chest pain.? Two sets of troponin are negative.? Minor increase of troponin in the 3rd set.? Lactate elevated at 2.9 at presentation.? Repeat lactic acid is 2.2.? Patient is tachycardic in the setting of recent methamphetamine use her pres
--- NOTE | 2023-03-29 13:29 | PCCCNOTE ---
On 03/29/23, the student, [Tarsha Monaco], provided care and completed [facility] documentation on this patient. I have reviewed the student's documentation and agree with the findings.
[2023-03-29] MEDS: METOPROLOL TARTRATE 25 MG TABLET PO (14:33)
[2023-03-29] MEDS: ACETAMINOPHEN 325 MG TABLET 650 MG PO (14:36)
== END 2023-03-29 14:55 | disposition home or self-care (01) ==
LOC: ANHED 18:28 → ANHIMU 20:43
PROVIDERS: Emergency Medicine; Internal Medicine Cardiovascular Disease; Admitting Provider Internal Medicine; Emergency Provider Emergency Medicine; PCP Internal Medicine Gastroenterology; Visit Provider Hospitalist
DX: R07.9 Chest pain, unspecified (principal); I47.1 Supraventricular tachycardia; E87.6 Hypokalemia; F19.90 Other psychoactive substance use, unspecified, uncomplicated; R00.2 Palpitations; R06.02 Shortness of breath; G43.909 Migraine, unspecified, not intractable, without status migrainosus; F31.9 Bipolar disorder, unspecified; F41.9 Anxiety disorder, unspecified; I48.92 Unspecified atrial flutter; R94.31 Abnormal electrocardiogram [ECG] [EKG]; I51.89 Other ill-defined heart diseases; R74.02 Elevation of levels of lactic acid dehydrogenase [LDH]; I45.10 Unspecified right bundle-branch block; I45.4 Nonspecific intraventricular block; J84.9 Interstitial pulmonary disease, unspecified; F10.90 Alcohol use, unspecified, uncomplicated; Y90.0 Blood alcohol level of less than 20 mg/100 ml; F17.210 Nicotine dependence, cigarettes, uncomplicated; Z91.51 Personal history of suicidal behavior; Z79.891 Long term (current) use of opiate analgesic; Z79.899 Other long term (current) drug therapy
CPT/HCPCS: 36415; 51702; 71045; 80048; 80053; 80061; 80307; 81001; 83605; 83690; 83735; 84132; 84484; 85025; 85027; 85610; 85730; 87077; 87086; 87186; 93005; 93306; 96361; 96365; 96366; 96372; 96375; 96376; 99285; A9270; G0378; J0153; J1170; J1650; J2405; J3480; J7030; J7040; J7120

== ENCOUNTER 2023-04-16 17:50 | Emergency (ER) | payer MEDICARE, MEDICAID, SELFPAY ==
[2023-04-16 17:57] VITALS: BP 148/98; PULSE 110; RESP 18; TEMP 36.2
--- NOTE | 2023-04-16 20:40 | ED.EAR ---
HPI - Ear Problem General Chief complaint: Ear Stated complaint: LEFT EAR PAIN Time Seen by Provider: 04/16/23 20:21 History of Present Illness HPI Narrative: Patient is a 57-year-old female presenting with left ear bleeding. Patient states that she was using a Q-tip in her left ear when she pushed it too deep. States that she had some mild pain and then noticed some bleeding. She put a cotton ball in her ear to help with the bleeding and came in for evaluation. States that it is painful although she denies any hearing changes. She denies further complaints or injuries. Related Data Home Medications Medication Instructions Recorded Confirmed benztropine 2 mg tablet 2 mg PO QAM AND QPM 04/18/22 03/27/23 [id number]-[id number]-vlnsalgo 1 tablet PO Q8H PRN Pain 04/18/22 03/27/23 50 mg-325 mg-40 mg tablet prazosin 5 mg capsule 10 mg PO HS 04/18/22 03/28/23 cyclobenzaprine 10 mg tablet 10 mg PO QHS 11/22/22 03/27/23 desipramine 150 mg tablet 300 mg PO QHS 11/22/22 03/28/23 hydrocodone 10 mg-acetaminophen 1 tablet PO Q8H PRN Pain 11/22/22 03/27/23 325 mg tablet ondansetron HCl 4 mg tablet 4 mg PO Q8H 11/22/22 03/27/23 chlorpromazine 100 mg tablet 100 mg PO Q12H 03/27/23 03/28/23 buspirone 15 mg tablet 15 mg PO Q8H 03/28/23 03/28/23 gabapentin 300 mg capsule 600 mg PO Q12H 03/28/23 03/28/23 Allergies Allergy/AdvReac Type Severity Reaction Status Date / Time grass pollen Allergy Intermediate Hives Verified 03/27/23 15:37 amoxicillin [From Augmentin] Allergy Hives Verified 03/27/23 15:37 asenapine [From Saphris] Allergy Hives Verified 03/27/23 15:37 bacitracin Allergy Rash Verified 03/27/23 15:37 [From Neosporin ([id number])] clavulanic acid Allergy Hives Verified 03/27/23 15:37 [From Augmentin] erythromycin base Allergy Hives Verified 03/27/23 15:37 haloperidol [From Haldol] Allergy Swelling Verified 03/27/23 15:37 of Lip/Tongue/Throat latex Allergy Rash Verified 03/27/23 15:37 neomycin Allergy Rash Verified 03/27/23 15:37 [From Neosporin ([id number])] olanzapine [From Zyprexa] Allergy Swelling Verified 03/27/23 15:37 of Lip/Tongue/Throat polymyxin B Allergy Rash Verified 03/04/23 12:49 [From Neosporin ([id number])] risperidone [From Risperdal] Allergy Hives Verified 03/04/23 12:49 tramadol [From Ultram] Allergy Rash Verified 03/04/23 12:49 ciprofloxacin AdvReac Vomiting Verified 03/04/23 12:49 ibuprofen AdvReac Vomiting Verified 03/04/23 12:49 Steriod AdvReac Agitated Uncoded 03/04/23 12:49 Review of Systems Review of Systems: All systems reviewed & are unremarkable except as noted in HPI and below PMFSH Past Medical History Medical History Ankle fracture, lateral malleolus, closed December 2022 Anxiety Back pain Bipolar mood disorder Distal radial fracture December 2022 Drug overdose Migraine Seizure Suicide attempt Surgical History Surgical History H/O foot surgery 2021 X2 H/O: hysterectomy 2000 History of back surgery 1999 Family History Family History Father Alcoholism Grandparent Diabetes mellitus Hypertension Mother Kidney disease Social History Social History Smoking packs per day: 1.5 Smoking cigarettes per day: 30.0 Years smoked: 47 Smoking pack-years: 70.50 Smoking status: Current every day smoker Tobacco type: cigarettes Second hand tobacco smoke exposure: No Alcohol intake: former Substance use: current Substance use type: painkillers and methamphetamine Other substance usage details: something for headaches Last use: 03/25/23 Lack of Transportation: No Lack of Food: Never True Current Housing: I Have Housing Concerned About Future Housing: YES
[2023-04-16] MEDS: KETOROLAC 15 MG/ML VIAL (*BKC) IM (20:57)
[2023-04-16] MEDS: ACETAMINOPHEN 500 MG TABLET 1000 MG PO (20:57)
[2023-04-16 21:04] VITALS: BP 141/91; PULSE 98; RESP 18; O2SAT 97
[2023-04-16] MEDS: OFLOXACIN 0.3% OPHTH SOLN 5 ML BTL 3 DROP LEFT EAR (21:17)
== END 2023-04-16 21:18 | disposition home or self-care (01) ==
PROVIDERS: Emergency Provider Emergency Medicine; PCP Internal Medicine Gastroenterology
DX: S09.22XA Traumatic rupture of left ear drum, initial encounter (principal); F41.9 Anxiety disorder, unspecified; F31.9 Bipolar disorder, unspecified; F17.210 Nicotine dependence, cigarettes, uncomplicated; Z90.710 Acquired absence of both cervix and uterus; W22.8XXA Striking against or struck by other objects, initial encounter
CPT/HCPCS: 96372; 99283; A9270; J1885

== ENCOUNTER 2023-04-27 09:48 | Inpatient (IN) | payer MEDICARE, MEDICAID, SELFPAY ==
[2023-04-27] VITALS (37 sets, daily range): BP systolic 114–164; BP diastolic 59–122; PULSE 98–117; RESP 14–27; TEMP 36.8–37.2; O2SAT 97–100
--- NOTE | ~2023-04-27 | CT_ITS ---
EXAMINATION: CT brain wo con DATE: 04/28/2023 12:40 INDICATION: Transient alteration of awareness. TECHNIQUE: Computed tomography (CT) of the head was performed without intravenous contrast. The mA wa s adjusted according to patient size. Iterative reconstruction technique was employed. The dose-lengt h product was 681.00 mGy-cm. COMPARISON: Head CT 03/03/2023 FINDINGS: There is no intracranial hemorrhage, acute infarction, or abnormal intracranial mass lesion . The ventricles are normal in size. The orbits are normal. There is mild mucosal thickening in the e thmoid sinuses. The mastoid air cells are normal. 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 IMPRESSION: 1. Normal brain. Reviewed, dictated and finalized at location A. IMPRESSION: 1. Normal brain.
--- NOTE | ~2023-04-27 | XR_ITS ---
EXAMINATION: XR chest 1V portable DATE: 04/27/2023 21:35 INDICATION: Altered mental status. TECHNIQUE: A single frontal view of the chest was obtained. COMPARISON: Chest single view 03/27/2023 FINDINGS: The patient is rotated to her left. There is no pneumonia, pleural effusion, or pneumothora x. The heart size is normal. There is a prominent left paracardial fat pad. IMPRESSION: 1. No acute cardiopulmonary disease. Reviewed, dictated and finalized at location A.
--- NOTE | 2023-04-27 10:09 | ECG_ITS ---
Measurements Intervals [place] Rate: 107 P: 83 WA: 143 QRS: 46 QRSD: 105 T: 53 QT: 309 QTc: 413 Interpretive Statements SINUS TACHYCARDIA POSSIBLE LEFT ATRIAL ENLARGEMENT [-0.1mV P WAVE IN V1/V2] INCOMPLETE RIGHT BUNDLE BRANCH BLOCK [90+ ms QRS DURATION, TERMINAL R IN V1/V2, 40+ ms S IN I/aVL/V4/V5/V6] ABNORMAL RHYTHM ECG COMPARED TO ECG 03/28/2023 11:13:24 NO DIFFERENCE Electronically Signed On 04-28-2023 7:06:59 CDT by Mat Jara M.D.
--- NOTE | 2023-04-27 10:09 | ED.OVERDOSE ---
HPI - Overdose General Chief Complaint: Overdose Stated Complaint: Overdose, Altered mental status Time Seen by Provider: 04/27/23 09:58 Source: patient and EMS Mode of arrival: EMS Limitations: clinical condition History of Present Illness HPI Narrative: 57 years old white female lives with her mother who called the police because claiming that the patient took many tablets of benztropine., Patient currently on benztropine 2 mg twice daily. The benztropin bottle showed 180 tablets, prescribed on March 19, currently have 135 tablets, missing 45 tablets. Patient is delirious, confused, agitated, awake and oriented to her name and age only Later her mom called us and told that that patient had a new prescription of Fioricet April 25, 60 tablets and the bottle is empty right now. Also buspirone on April 25, 90 tablets, 15 mg each. Unknown information about the buspirone bottle. Patient denies any drug overdose, telling me that her mom is lying, and they took her dog away from her and she is very sad about it. MD complaint: intentional overdose and accidental overdose Related Data Home Medications Medication Instructions Recorded Confirmed benztropine 2 mg tablet 2 mg PO QAM AND QPM 04/18/22 03/27/23 [id number]-xwzfvdsersigv-jjudurxr 1 tablet PO Q8H PRN Pain 04/18/22 03/27/23 50 mg-325 mg-40 mg tablet prazosin 5 mg capsule 10 mg PO HS 04/18/22 03/28/23 cyclobenzaprine 10 mg tablet 10 mg PO QHS 11/22/22 03/27/23 desipramine 150 mg tablet 300 mg PO QHS 11/22/22 03/28/23 hydrocodone 10 mg-acetaminophen 1 tablet PO Q8H PRN Pain 11/22/22 03/27/23 325 mg tablet ondansetron HCl 4 mg tablet 4 mg PO Q8H 11/22/22 03/27/23 chlorpromazine 100 mg tablet 100 mg PO Q12H 03/27/23 03/28/23 buspirone 15 mg tablet 15 mg PO Q8H 03/28/23 03/28/23 gabapentin 300 mg capsule 300 mg PO TID 04/23/23 Allergies Allergy/AdvReac Type Severity Reaction Status Date / Time grass pollen Allergy Intermediate Hives Verified 04/27/23 10:09 amoxicillin [From Augmentin] Allergy Hives Verified 04/27/23 10:09 asenapine [From Saphris] Allergy Hives Verified 04/27/23 10:09 bacitracin Allergy Rash Verified 04/27/23 10:09 [From Neosporin ([id number])] clavulanic acid Allergy Hives Verified 04/27/23 10:09 [From Augmentin] erythromycin base Allergy Hives Verified 04/27/23 10:09 haloperidol [From Haldol] Allergy Swelling Verified 04/27/23 10:09 of Lip/Tongue/Throat latex Allergy Rash Verified 04/27/23 10:09 neomycin Allergy Rash Verified 04/27/23 10:09 [From Neosporin ([id number])] olanzapine [From Zyprexa] Allergy Swelling Verified 04/27/23 10:09 of Lip/Tongue/Throat polymyxin B Allergy Rash Verified 04/27/23 10:09 [From Neosporin ([id number])] risperidone [From Risperdal] Allergy Hives Verified 04/27/23 10:09 tramadol [From Ultram] Allergy Rash Verified 04/27/23 10:09 ciprofloxacin AdvReac Vomiting Verified 04/27/23 10:09 ibuprofen AdvReac Vomiting Verified 04/27/23 10:09 Steriod AdvReac Agitated Uncoded 04/27/23 10:09 Review of Systems Review of Systems: All systems reviewed & are unremarkable except as noted in HPI and below PMFSH Past Medical History Medical History Ankle fracture, lateral malleolus, closed December 2022 Anxiety Back pain Bipolar mood disorder Distal radial fracture December 2022 Drug overdose Migraine Seizure Suicide attempt Surgical History Surgical History H/O foot surgery 2021 X2 H/O: hysterectomy 2000 History of back surgery 1999 Family History Family History Father Alcoholism Grandparent Diabetes mellitus Hypertension Heart disease Mother Kidney disease Grandparent Alcoholism Social History Social History Smoking packs
--- NOTE | 2023-04-27 10:11 | PC.NURSE ---
Bottle of Benztropine 2mg PO 2xday came with the pt, Medication has been refilled on 03/19/23 with 180 tabs. There is 135 tabs left in the bottle.
[2023-04-27] MEDS: SODIUM CHLORIDE 0.9% IV 1,000 ML 999 ML IV CONT (10:18)
[2023-04-27 10:37] LABS: Alveolar/Arterial O2 Gradient 34.1 mmHg; Base Excess ABG -2.7 mEq/l (+/-2.0); Fractional Inspired Oxygen 21 %; Oxygen Content ABG 18.1 %vol (16.0-22.0); Oxygen Saturation ABG 95.5 % (95.0-100.0); Oxyhemoglobin 90.7 % THb (90.0-100.0); PCO2 ABG 33.5 mmHg (35.0-45.0); PO2 ABG 75.5 mmHg (80.0-100.0); Total Hemoglobin 14.2 g/dL (12.0-18.0); pH ABG 7.415 (7.350-7.450)
[2023-04-27 10:38] LABS: Device ROOM AIR; Modified Allen's Test Pass; Site Drawn RIGHT RADIAL
--- NOTE | 2023-04-27 10:38 | PC.NURSE ---
spoke with poison control, Radha, states supportive care, peak time is 7 hours. at risk for agitation, confused, combative, dystonia, posturing, and seizures. Dr Wolfe aware
[2023-04-27 10:39] LABS: Basophils Absolute Auto 0.1 K/mm3 (0.0-0.1); Basophils Percent Auto 0.8 % (0.2-1.2); Eosinophils Absolute Auto 0.2 K/mm3 (0-0.3); Hematocrit 43.1 % (37.0-47.0); Hemoglobin 14.1 g/dL (12.0-15.0); Immature Granulocyte Absolute 0.03 K/mm3 (0.00-0.031); Immature Granulocyte Percent A 0.4 % (0-0.5); Lymphocytes Absolute Auto 2.72 K/mm3 (0.9-3.2); Lymphocytes Percent Auto 35.6 % (18.3-44.2); Mean Corpuscular HGB Conc 32.7 g/dl (32-36); Mean Corpuscular Volume 106.9 fl (80-100); Mean Platelet Volume 9.1 fl (7.4-10.4); Monocytes Absolute Auto 0.8 K/mm3 (0.1-0.6); Monocytes Percent Auto 10.3 % (2.6-8.5); Neutrophils Absolute Auto 3.9 K/mm3 (1.3-6.7); Neutrophils Percent Auto 50.9 % (45.5-73.1); Platelet Count Result 424 k/mm3 (150-375); Red Blood Count 4.03 M/mm3 (4.2-5.4); Red Cell Distribution Width 13.6 % (11.5-14.5); White Blood Count 7.7 K/mm3 (4.5-10.0)
[2023-04-27 10:50] LABS: Acetaminophen 22 ug/mL (10-30); Ethanol < 10 mg/dL (<10); Salicylate < 1.0 mg/dL (2-20)
[2023-04-27 10:51] LABS: Alanine Aminotransferase 23 U/L (6-35); Albumin Level 4.3 g/dL (3.5-5.1); Alkaline Phosphatase 108 U/L (38-126); Anion Gap 9 mmol/L (8-16); Aspartate Amino Transferase 28 U/L (14-36); Bilirubin,Total 0.5 mg/dL (0.2-1.3); Blood Urea Nitrogen 9 mg/dL (7-17); Calcium 9.2 mg/dL (8.4-10.2); Carbon Dioxide 24 mmol/L (22-30); Chloride 109 mmol/L (98-107); Creatine Kinase 91 U/L (30-135); Estimated CRCL calculation 77 ml/min; Estimated Glomerular Filt Rate > 60; Glucose 109 mg/dL (65-110); INR 0.9; Partial Thromboplastin Time 28.8 SECONDS (22.3-36.8); Potassium 2.9 mmol/L (3.4-5.0); Prothrombin Time 12.6 Seconds (11.1-14.7); Sodium 142 mmol/L (137-145)
--- NOTE | 2023-04-27 11:19 | PC.NURSE ---
Talked to pt mom and per her mom Pt got Butalbital-Acetaminophen 50-325mg 60 tabs on 04/25/23 and all the pills are gone. Per pt mom pt has been aggressive and confuse since Saturday.
[2023-04-27 11:24] LABS: Appearance Urine Clear (Clear); Bilirubin Urine Negative (Negative); Blood Urine Negative (Negative); Color Urine Yellow (Yellow); Glucose Urine UA Negative (Negative); Ketones Urine Negative (Negative); Leukocyte Esterase Ur Negative LEU/UL (Negative); Nitrate Urine Negative (Negative); Protein Urine Negative (Negative); Specific Grav Ur 1.014 (1.001-1.035); Urobilinogen Urine 0.2 mg/dL (<2.0); pH Urine 5.5 (5.0-9.0)
[2023-04-27 11:32] LABS: Add Urine Microscopic? NO
[2023-04-27 11:40] LABS: Amphetamine Screen Urine Negative (Negative); Barbiturate Screen Urine Positive (Negative); Benzodiazepines Screen Urine Negative (Negative); Cannabinoid Screen Urine Negative (Negative); Cocaine Screen Urine Negative (Negative); Methadone Screen Urine Negative (Negative); Opiate Screen Urine Negative (Negative); Phencyclidine Screen Urine Negative (Negative)
[2023-04-27] MEDS: POTASSIUM CHLORIDE INJ 40 MEQ in SODIUM CHLORIDE 0.9% IV 500 ML 130 MEQ IVPB (12:08)
[2023-04-27] MEDS: LORazepam INJ (*CRX) 2 MG/ML VIAL IV PUSH (12:26)
--- NOTE | 2023-04-27 12:45 | PM.IMHP ---
H&P: HPI History of Present Illness Date/Time: 04/27/23 12:45 Chief Complaint: overdose Narrative: This is a 57-year-old female patient who resides with her mother. She has a history of anxiety with a history of bipolar mood disorder and drug overdose. She has had a previous suicide attempt. The patient lives with her mother and her mother called the police claiming that the patient took an overdose of multiple medications. Please see the ER note for details. ER also reported that the mother called back and stated that the patient had a new prescription for Fioricet on April 25 and had 60 tablets when it was filled and now the bottles empty. Also buspirone dose each was questionable as well. The patient denies any drug overdose. The patient about her mother taking her dog away and that she is very sad about that. The patient is in 4 point restraints is not able to answer any questions for me. ABG was obtained 7.415 PH pCO2 is 33.5. PO2 75.5. Her potassium was noted to be 2.9. Chloride 109. Urine was negative. Toxicology solicit takes was less than 1.0 and barbiturates positive. The patient was given anti ileum, normal saline, potassium and Ativan. The patient is being admitted to inpatient status on the date of service of 04/27/2023 Review of Systems Review of Systems: All systems reviewed & are unremarkable except as noted in HPI and below Constitutional: Constitutional: Reports as per HPI and Reports no additional constitutional complaints Eyes: Eyes: Reports as per HPI and Reports no additional eye complaints ENT: Reports system reviewed and no additional complaints, except as documented and Reports Normal hearing present Cardiovascular: Cardiovascular: Reports no additional cardiovascular complaints Respiratory: Respiratory: Reports no additional respiratory complaints and Reports no additional respiratory complaints Gastrointestinal: Gastrointestinal: Reports as per HPI and Reports no additional gastrointestinal complaints Musculoskeletal: Musculoskeletal: Reports no additional musculoskeletal complaints Integumentary/Breasts: Skin/Breast: Reports system reviewed and no additional complaints, except as docu and Reports as per HPI Neurologic: Reports system reviewed and no additional complaints, except as documented, Reports as per HPI and Reports Normal hearing present Psychiatric: Psychiatric: Reports no additional psychiatric complaints and Reports as per HPI Endocrine: Endocrine: Reports no additional endocrine complaints Hematologic/Lymphatic: Hematologic/Lymphatic: Reports no additional hematologic/lymphatic complaints Allergic/Immunologic: Allergic/Immunologic: Reports no additional allergic/immunologic complaints [facility] Past Medical History Medical History (Updated 04/27/23 @ 15:33 by Kady Pena NP) Ankle fracture, lateral malleolus, closed December 2022 Anxiety Back pain Bipolar mood disorder Carpal tunnel syndrome COPD (chronic obstructive pulmonary disease) Distal radial fracture December 2022 Drug overdose Migraine Overdose of lithium or lithium compound Schizophrenia Seizure Suicide attempt Surgical History Surgical History (Updated 04/27/23 @ 15:33 by Kady Pena NP) H/O dilation and curettage H/O foot surgery 2021 X2 H/O tubal ligation H/O: hysterectomy 2000 History of back surgery 1999 History of tonsillectomy Family History Family History Father Alcoholism Grandparent Diabetes mellitus Hypertension Heart disease Mother Kidney disease Grandparent Alcoholism Social History Social History (Updated 04/27/23 @ 15:37 by Kady Pena NP) Social History: The patient is noted to be single and disabled. Her mother is listed as a durable power of supervisor [employer] for healthcare. She is listed as a full code. Smoking packs per day: 1.5 Smoking cigarettes per day: 30.0 Years smoked: 47 Smoking
[2023-04-27] MEDS: SODIUM CHLORIDE 0.9% IV 1,000 ML 150 ML IV CONT ×2 (14:06→23:45)
[2023-04-27 16:12] LABS: Acetaminophen < 10 ug/mL (10-30)
[2023-04-27 16:13] LABS: Anion Gap 2 mmol/L (8-16); Blood Urea Nitrogen 6 mg/dL (7-17); Calcium 8.8 mg/dL (8.4-10.2); Carbon Dioxide 23 mmol/L (22-30); Chloride 114 mmol/L (98-107); Estimated CRCL calculation 90 ml/min; Estimated Glomerular Filt Rate > 60; Glucose 89 mg/dL (65-110); Potassium 3.5 mmol/L (3.4-5.0); Sodium 139 mmol/L (137-145)
[2023-04-27 16:21] LABS: Magnesium 1.9 mg/dL (1.6-2.3)
--- NOTE | 2023-04-27 17:00 | PC.NURSE ---
Received call from Poison Control, [facility], requesting update. [facility] suggested to change ativan to valium for better agitation relief, to check a CK level, and be aware of the potential for a widened QRS. Informed CORNEL Hillman.
[2023-04-27] MEDS: diazePAM INJ (*CRX) 10 MG/2 ML SYRINGE 5 MG IV PUSH ×2 (18:00→21:21)
[2023-04-27] MEDS: MORPHINE SULFATE (*CRX) 2 MG/ML INJ IV PUSH (22:29)
[2023-04-28] VITALS (14 sets, daily range): BP systolic 94–154; BP diastolic 70–111; PULSE 19–159; RESP 19–137; TEMP 36.3–37.2; O2SAT 94–100
[2023-04-28] MEDS: MORPHINE SULFATE (*CRX) 2 MG/ML INJ IV PUSH (00:47)
[2023-04-28] MEDS: diazePAM INJ (*CRX) 10 MG/2 ML SYRINGE 5 MG IV PUSH ×4 (01:51→16:09)
--- NOTE | 2023-04-28 03:00 | PC.NURSE ---
Patient stating that she needs to use the restroom. Patient placed on bedpan. Patient stated she was unable to go laying down and unable to sit up. Attempted to remove bedpan and patient becoming belligerent and combative. Patient sat up in the bed and instructed to lay back down. Patient attempted to bite RN. Dr. Go notified of patient's behavior.
[2023-04-28] MEDS: LORazepam INJ (*CRX) 2 MG/ML VIAL IV PUSH (03:41)
--- NOTE | 2023-04-28 04:10 | PC.NURSE ---
Patient violent, verbally abusive, and kicking as this RN and CCT were attempting to clean her up following incontinent episode.
--- NOTE | 2023-04-28 04:15 | PM.EVENT ---
Event Note Event Note Event Note: I was in the ICU when I heard the patient yelling and screaming at nursing staff. She was cussing them out. She was kicking at nursing staff and spitting. She was stating that she was going to be more than happy to go to prison after she hurt them. She had already received Valium which had settled the patient for a brief period of time approximately 30-40 minutes. She then went up cycle and become violent again. She had allergies listed to every antipsychotic. She also reported nursing staff when she was in her delirious state that Valium also makes her violent. Every medication that we offered the patient no matter what treatment it was offered for the patient would state that she would not take it because the medication would make her violent. She even stated this about the medications that she was on from home. I did give orders for the patient to receive her volume and p.r.n. Ativan. This week give brief relief in the patient's symptoms. The patient then she was placed in restraints because she was throwing urine covered material at the nurses. When all other efforts failed I did give the patient a dose of IM Phenergan and IV Benadryl. After these medications the patient's behaviors did improved somewhat but she was still intermittently yell out. She was slightly more manageable. The patient has been evaluated by psychiatric at this facility before. She does have a history of methamphetamine abuse. There is also mention that the patient was likely selling her opiate pain medications to get street drugs. 35 minutes was spent in critical care activities including multiple evaluations of the patient Due to a high probability of clinically significant, life threatening deterioration, the patient required my highest level of preparedness to intervene emergently and I personally spent this critical care time directly and personally managing the patient. This critical care time included obtaining a history; examining the patient; pulse oximetry; ordering and review of studies; arranging urgent treatment with development of a management plan; evaluation of patient's response to treatment; frequent reassessment; and discussions with other providers. It was exclusive of separately billable procedures and treating other patients and teaching time. Please see Assessment and Plan section and the rest of the note for further information on patient assessment and treatment.
[2023-04-28] MEDS: diphenhydrAMINE HCl INJ 50 MG/ML VIAL IV PUSH (04:22)
[2023-04-28] MEDS: PROMETHAZINE HCL 25 MG/ML AMPUL IM (04:22)
--- NOTE | 2023-04-28 04:50 | PC.NURSE ---
0330 Pt on bedpan refusing to use it threatening to piss all over . This nurse and Nurse Gogo Corrales attempted to place adult diaper on patient. patient kicking this nurse and attempting to bite.
--- NOTE | 2023-04-28 04:57 | PC.NURSE ---
[address] O2 sat on finger and patient trying to bite Nurse.
[2023-04-28] MEDS: SODIUM CHLORIDE 0.9% IV 1,000 ML 150 ML IV CONT (07:40)
[2023-04-28 07:45] LABS: Basophils Absolute Auto 0.1 K/mm3 (0.0-0.1); Basophils Percent Auto 0.5 % (0.2-1.2); Eosinophils Absolute Auto 0.2 K/mm3 (0-0.3); Eosinophils Percent Auto 1.6 % (0-4.4); Hematocrit 41.5 % (37.0-47.0); Hemoglobin 13.4 g/dL (12.0-15.0); Immature Granulocyte Absolute 0.04 K/mm3 (0.00-0.031); Immature Granulocyte Percent A 0.4 % (0-0.5); Lymphocytes Absolute Auto 1.82 K/mm3 (0.9-3.2); Lymphocytes Percent Auto 18.8 % (18.3-44.2); Mean Corpuscular HGB Conc 32.3 g/dl (32-36); Mean Corpuscular Hemoglobin 35.2 pg (26-34); Mean Corpuscular Volume 108.9 fl (80-100); Mean Platelet Volume 9.3 fl (7.4-10.4); Monocytes Absolute Auto 0.8 K/mm3 (0.1-0.6); Monocytes Percent Auto 8.3 % (2.6-8.5); Neutrophils Absolute Auto 6.8 K/mm3 (1.3-6.7); Neutrophils Percent Auto 70.4 % (45.5-73.1); Platelet Count Result 369 k/mm3 (150-375); Red Blood Count 3.81 M/mm3 (4.2-5.4); Red Cell Distribution Width 14.1 % (11.5-14.5); White Blood Count 9.7 K/mm3 (4.5-10.0)
[2023-04-28 07:47] LABS: Alanine Aminotransferase 23 U/L (6-35); Albumin Level 3.8 g/dL (3.5-5.1); Alkaline Phosphatase 98 U/L (38-126); Anion Gap 1 mmol/L (8-16); Aspartate Amino Transferase 41 U/L (14-36); Bilirubin,Total 0.7 mg/dL (0.2-1.3); Blood Urea Nitrogen 5 mg/dL (7-17); Carbon Dioxide 27 mmol/L (22-30); Chloride 110 mmol/L (98-107); Estimated CRCL calculation 77 ml/min; Estimated Glomerular Filt Rate > 60; Glucose 82 mg/dL (65-110); Lipase 28 U/L (23-300); Sodium 138 mmol/L (137-145)
[2023-04-28 07:50] LABS: Lactic Acid Reflex 0.8 mmol/L (0.7-2.0)
[2023-04-28 08:33] LABS: Acetaminophen < 10 ug/mL (10-30)
[2023-04-28] MEDS: chlorproMAZINE HCL 25 MG TABLET 100 MG PO ×3 (08:45→20:20)
[2023-04-28] MEDS: HYDROcodone/acetaminophen (*CRX) 5-325 MG TABLET 1 TAB PO ×2 (09:53→20:21)
--- NOTE | 2023-04-28 10:23 | PM.IMPN ---
Progress Note: A&P Assessment and Plan (1) Acute drug overdose: Qualifiers: Encounter type: subsequent encounter Injury intent: intentional self-harm Qualified Code(s): T50.902D - Poisoning by unspecified drugs, medicaments and biological substances, intentional self-harm, subsequent encounter Code(s): T50.901A - Poisoning by unspecified drugs, medicaments and biological substances, accidental (unintentional), initial encounter Status: Acute Assessment and Plan: Acute toxic encephalopathy ER also reported that the mother called back and stated that the patient had a new prescription for Fioricet on April 25 and had 60 tablets when it was filled and now the bottles empty.? Also buspirone dose each was questionable as well.? The patient denies any drug overdose.? ? ABG was obtained 7.415 PH pCO2 is 33.5.? PO2 75.5.? Her potassium was noted to be 2.9.? Chloride 109.? Urine was negative.? Toxicology solicit takes was less than 1.0 and barbiturates positive. Her toxicology screen was positive for barbiturates The patient stated that she did not taken overdose of medication. Patient stated that her mother killed her dog and she is very sad about it. previous history of Tylenol and lithium overdose in the past. Is reported that the patient overdose on Fioricet. Will continue to monitor her Tylenol level. Her Tylenol level was 22 this morning. Once the patient is medically cleared patient will need have crisis evaluate her. All of her medications are on hold at this time due to the overdose. . (2) Major depression with psychotic features: Code(s): F32.3 - Major depressive disorder, single episode, severe with psychotic features Status: Acute Assessment and Plan: Patient will need to be cleared medically before crisis continue her for rehab. She has a history of schizophrenia. She also has multiple allergies. She was given Ativan earlier. The patient is confused and combative. She is currently in restraints. (3) Altered mental status: Code(s): R41.82 - Altered mental status, unspecified Status: Acute Assessment and Plan: Head CT has been ordered. UA was negative. (4) Depression: Code(s): F32.A - Depression, unspecified Status: Acute Assessment and Plan: Patient will need to be evaluated by crisis as soon as she is medically cleared. (5) Hypokalemia: Code(s): E87.6 - Hypokalemia Status: Acute Assessment and Plan: Replete potassium chloride Follow-up BMP magnesium, Correct electrolyte abnormality accordingly (6) Agitation: Code(s): R45.1 - Restlessness and agitation Status: Acute Assessment and Plan: P.r.n. Ativan. (7) Toxic encephalopathy: Code(s): G92.9 - Unspecified toxic encephalopathy Status: Acute (8) Schizophrenia: Code(s): F20.9 - Schizophrenia, unspecified Status: Acute Assessment and Plan: Hold home medications with side effect of arrhythmia (9) COPD (chronic obstructive pulmonary disease): Code(s): J44.9 - Chronic obstructive pulmonary disease, unspecified Status: Acute (10) Sinus tachycardia: Code(s): R00.0 - Tachycardia, unspecified Status: Acute Assessment and Plan: EKG shows sinus rhythm no specific ST-T wave changes Resume more Toprol p.o. at home dose Metoprolol 5 mg IV push x1 Subjective Date/time seen: 04/28/23 10:23 Interval history: I saw exam patient in ICU, patient lethargic, has no complaints, Labs reviewed, potassium 3.0, replete with potassium chloride. Patient has a sinus tachycardia, blood pressure stable, patient afebrile Exam Narrative: GENERAL: Lethargic, in no acute distress. Well-nourished. - EYES: EOMI. Anicteric. - HENT: Moist mucous membranes. - LUNGS: Clear to auscultation bilaterally, no wheezing, rhonchi, or rales. - CARDIOVASCULAR: Regular rate and rhythm. Tachycardia,
[2023-04-28] MEDS: POTASSIUM CHLORIDE INJ 40 MEQ in SODIUM CHLORIDE 0.9% IV 500 ML 130 MEQ IVPB (10:46)
--- NOTE | 2023-04-28 16:29 | ECG_ITS ---
Measurements Intervals [place] Rate: 136 P: 189 LA: 156 QRS: 41 QRSD: 110 T: 27 QT: 308 QTc: 463 Interpretive Statements SUPRAVENTRICULAR TACHYCARDIA, CONSIDER ATYPICAL ATRIAL FLUTTER WITH TWO-TO-ONE CONDUCTION INDETERMINATE AXIS LOW QRS VOLTAGE IN PRECORDIAL LEADS [QRS DEFLECTION < 1.0 mV IN CHEST LEADS] ABNORMAL ECG COMPARED TO ECG 04/27/2023 10:31:51 SUPRAVENTRICULAR TACHYCARDIA OR ATRIAL FLUTTER HAS REPLACED SINUS RHYTHM Electronically Signed On 04-29-2023 7:30:40 CDT by Mat Jara M.D.
[2023-04-28 17:53] LABS: Anion Gap 5 mmol/L (8-16); Blood Urea Nitrogen 8 mg/dL (7-17); Calcium 8.9 mg/dL (8.4-10.2); Carbon Dioxide 27 mmol/L (22-30); Chloride 111 mmol/L (98-107); Estimated CRCL calculation 77 ml/min; Estimated Glomerular Filt Rate > 60; Glucose 126 mg/dL (65-110); Potassium 3.7 mmol/L (3.4-5.0); Sodium 143 mmol/L (137-145)
[2023-04-28] MEDS: METOPROLOL TARTRATE INJ 5 MG/5 ML VIAL IV PUSH (18:03)
[2023-04-28] MEDS: METOPROLOL TARTRATE 25 MG TABLET PO (20:20)
[2023-04-29] VITALS (13 sets, daily range): BP systolic 104–133; BP diastolic 64–93; PULSE 67–128; RESP 14–22; TEMP 36.1–36.6; O2SAT 92–99
[2023-04-29] MEDS: HYDROcodone/acetaminophen (*CRX) 5-325 MG TABLET 1 TAB PO ×2 (04:47→09:00)
[2023-04-29] MEDS: SODIUM CHLORIDE 0.9% IV 1,000 ML 150 ML IV CONT (06:51)
[2023-04-29] MEDS: chlorproMAZINE HCL 25 MG TABLET 100 MG PO ×2 (09:00→20:34)
[2023-04-29] MEDS: METOPROLOL TARTRATE 25 MG TABLET PO ×2 (09:00→20:34)
[2023-04-29 09:38] LABS: Basophils Percent Auto 0.6 % (0.2-1.2); Eosinophils Absolute Auto 0.1 K/mm3 (0-0.3); Eosinophils Percent Auto 2.7 % (0-4.4); Hematocrit 42.7 % (37.0-47.0); Hemoglobin 13.7 g/dL (12.0-15.0); Lymphocytes Absolute Auto 1.86 K/mm3 (0.9-3.2); Lymphocytes Percent Auto 35.2 % (18.3-44.2); Mean Corpuscular HGB Conc 32.1 g/dl (32-36); Mean Corpuscular Hemoglobin 34.8 pg (26-34); Mean Corpuscular Volume 108.4 fl (80-100); Mean Platelet Volume 9.2 fl (7.4-10.4); Monocytes Absolute Auto 0.5 K/mm3 (0.1-0.6); Neutrophils Absolute Auto 2.7 K/mm3 (1.3-6.7); Neutrophils Percent Auto 51.5 % (45.5-73.1); Platelet Count Result 293 k/mm3 (150-375); Red Blood Count 3.94 M/mm3 (4.2-5.4); Red Cell Distribution Width 14.2 % (11.5-14.5); White Blood Count 5.3 K/mm3 (4.5-10.0)
[2023-04-29 09:52] LABS: Alanine Aminotransferase 24 U/L (6-35); Albumin Level 3.4 g/dL (3.5-5.1); Alkaline Phosphatase 81 U/L (38-126); Anion Gap 1 mmol/L (8-16); Aspartate Amino Transferase 45 U/L (14-36); Bilirubin,Total 0.6 mg/dL (0.2-1.3); Blood Urea Nitrogen 6 mg/dL (7-17); Calcium 8.6 mg/dL (8.4-10.2); Carbon Dioxide 27 mmol/L (22-30); Chloride 108 mmol/L (98-107); Estimated CRCL calculation 90 ml/min; Estimated Glomerular Filt Rate > 60; Glucose 124 mg/dL (65-110); Potassium 3.4 mmol/L (3.4-5.0); Sodium 136 mmol/L (137-145)
[2023-04-29] MEDS: POTASSIUM CHLORIDE 20 MEQ PACKET (FOR LIQUID) 40 MEQ PO (11:44)
[2023-04-29] MEDS: HYDROcodone/acetaminophen (*CRX) 7.5-325 MG TABLET 1 TAB PO ×3 (12:03→20:35)
[2023-04-29] MEDS: busPIRone HCL 10 MG, busPIRone HCL 5 MG 15 MG PO ×2 (13:47→20:35)
--- NOTE | 2023-04-29 14:13 | PM.IMPN ---
Progress Note: A&P Assessment and Plan (1) Acute drug overdose: Qualifiers: Encounter type: subsequent encounter Injury intent: intentional self-harm Qualified Code(s): T50.902D - Poisoning by unspecified drugs, medicaments and biological substances, intentional self-harm, subsequent encounter Code(s): T50.901A - Poisoning by unspecified drugs, medicaments and biological substances, accidental (unintentional), initial encounter Status: Acute Assessment and Plan: Acute toxic encephalopathy ER also reported that the mother called back and stated that the patient had a new prescription for Fioricet on April 25 and had 60 tablets when it was filled and now the bottles empty.? Also buspirone dose each was questionable as well.? The patient denies any drug overdose.? ? ABG was obtained 7.415 PH pCO2 is 33.5.? PO2 75.5.? Her potassium was noted to be 2.9.? Chloride 109.? Urine was negative.? Toxicology solicit takes was less than 1.0 and barbiturates positive. Her toxicology screen was positive for barbiturates The patient stated that she did not taken overdose of medication. Patient stated that her mother killed her dog and she is very sad about it. previous history of Tylenol and lithium overdose in the past. Is reported that the patient overdose on Fioricet. Will continue to monitor her Tylenol level. Her Tylenol level was 22 trending down less than 10 now patient is medically cleared. patient will need have crisis evaluate her today Will move patient to medical floor today . (2) Major depression with psychotic features: Code(s): F32.3 - Major depressive disorder, single episode, severe with psychotic features Status: Acute Assessment and Plan: Patient is calm, no hallucination mood is depressed Patient will need evaluation by crisis team She has a history of schizophrenia. She is not currently in restraints. (3) Altered mental status: Code(s): R41.82 - Altered mental status, unspecified Status: Acute Assessment and Plan: Head CT has been ordered. UA was negative. Alert and oriented today (4) Depression: Code(s): F32.A - Depression, unspecified Status: Acute Assessment and Plan: Patient will need to be evaluated by crisis before discharge (5) Hypokalemia: Code(s): E87.6 - Hypokalemia Status: Acute Assessment and Plan: Replete potassium chloride Follow-up BMP magnesium, Correct electrolyte abnormality accordingly (6) Agitation: Code(s): R45.1 - Restlessness and agitation Status: Acute Assessment and Plan: P.r.n. Ativan. (7) Toxic encephalopathy: Code(s): G92.9 - Unspecified toxic encephalopathy Status: Acute (8) Schizophrenia: Code(s): F20.9 - Schizophrenia, unspecified Status: Acute Assessment and Plan: Hold home medications with side effect of arrhythmia (9) COPD (chronic obstructive pulmonary disease): Code(s): J44.9 - Chronic obstructive pulmonary disease, unspecified Status: Acute (10) Sinus tachycardia: Code(s): R00.0 - Tachycardia, unspecified Status: Acute Assessment and Plan: EKG shows sinus rhythm no specific ST-T wave changes Resume more Toprol p.o. at home dose Metoprolol 5 mg IV push x1 Now patient has a sinus rhythm, rate is controlled Subjective Date/time seen: 04/29/23 14:13 Interval history: I saw exam patient in ICU, patient complained chronic back pain, patient is alert oriented x3. Patient denies chest pain, headache, abdomen pain nausea vomiting, patient afebrile, hemodynamically stable Exam Narrative: GENERAL: Lethargic, in no acute distress. Well-nourished. - EYES: EOMI. Anicteric. - HENT: Moist mucous membranes. - LUNGS: Clear to auscultation bilaterally, no wheezing, rhonchi, or rales. - CARDIOVASCULAR: Regular rate and rhythm. Tachycardia, no murmur. No JVD. - ABDOM
[2023-04-29 14:42] LABS: Beta HCG Quantitative < 2.39 mIU/ML
--- NOTE | 2023-04-29 15:36 | PM.TDS ---
Transfer Discharge Sum: Prov Provider Date of admission: 04/27/23 12:15 <Benji Thomas MD - Last Filed: 05/09/23 07:29> Primary care physician: Neil Barbour, <Benji Thomas MD - Last Filed: 05/09/23 07:29> Admitting clinician: Benji Thomas MD <Benji Thomas MD - Last Filed: 05/09/23 07:29> Consults: 04/27/23 12:18 Consult to Physician Routine Comment: Consulting Provider: Mono Gay Reason for consultation: Possible drug overdose Has provider been notified: Yes <Benji Thomas MD - Last Filed: 05/09/23 07:29> DS: Admitting Diagnosis Discharge Date 04/30/2023 <Deysi Maldonado MD - Last Filed: 04/30/23 14:23> Admitting Diagnosis OVERDOSE <Deysi Maldonado MD - Last Filed: 04/30/23 14:23> DS: Discharge Diagnosis Discharge Diagnosis (1) Acute drug overdose: Qualifiers: Encounter type: subsequent encounter Injury intent: intentional self-harm Qualified Code(s): T50.902D - Poisoning by unspecified drugs, medicaments and biological substances, intentional self-harm, subsequent encounter <Benji Thomas MD - Last Filed: 05/09/23 07:29> Code(s): T50.901A - Poisoning by unspecified drugs, medicaments and biological substances, accidental (unintentional), initial encounter <Benji Thomas MD - Last Filed: 05/09/23 07:29> Status: Acute <Benji Thomas MD - Last Filed: 05/09/23 07:29> Assessment and Plan: Acute toxic encephalopathy ER also reported that the mother called back and stated that the patient had a new prescription for Fioricet on April 25 and had 60 tablets when it was filled and now the bottles empty.? Also buspirone dose each was questionable as well.? The patient denies any drug overdose.? ? ABG was obtained 7.415 PH pCO2 is 33.5.? PO2 75.5.? Her potassium was noted to be 2.9.? Chloride 109.? Urine was negative.? Toxicology solicit takes was less than 1.0 and barbiturates positive. Her toxicology screen was positive for barbiturates The patient stated that she did not taken overdose of medication. Patient stated that her mother killed her dog and she is very sad about it. previous history of Tylenol and lithium overdose in the past. Is reported that the patient overdose on Fioricet. Will continue to monitor her Tylenol level. Her Tylenol level was 22 trending down less than 10 Patient is medically cleared. Patient will need have crisis evaluate her today Pt is medically cleared for transport and psychiatric admission . <Deysi Maldonado MD - Last Filed: 04/30/23 14:23> (2) Major depression with psychotic features: Code(s): F32.3 - Major depressive disorder, single episode, severe with psychotic features <Benji Thomas MD - Last Filed: 05/09/23 07:29> Status: Acute <Benji Thomas MD - Last Filed: 05/09/23 07:29> Assessment and Plan: Patient is calm, no hallucination mood is depressed Patient will need evaluation by crisis team She has a history of schizophrenia. She is not currently in restraints. <Deysi Maldonado MD - Last Filed: 04/30/23 14:23> (3) Altered mental status: Code(s): R41.82 - Altered mental status, unspecified <Benji Thomas MD - Last Filed: 05/09/23 07:29> Status: Acute <Benji Thomas MD - Last Filed: 05/09/23 07:29> Assessment and Plan: Head CT has been ordered. UA was negative. Alert and oriented today <Deysi Maldonado MD - Last Filed: 04/30/23 14:23> (4) Depression: Code(s): F32.A - Depression, unspecified <Benji Thomas MD - Last Filed: 05/09/23 07:29> Status: Acute <Benji Thomas MD - Last Filed: 05/09/23 07:29> Assessment and Plan: Patient will need to be evaluated by crisis before discharge <Deysi Maldonado MD - Last Filed: 04/30/23 14:23> (5) Hypokalemia: Code(s): E87.6 - Hypokalemia <Benji Thomas MD - Last
[2023-04-29 16:01] LABS: EDCOVIDSCREEN Negative (Negative)
--- NOTE | 2023-04-29 17:24 | ECG_ITS ---
Measurements Intervals [place] Rate: 77 P: 69 NM: 155 QRS: 31 QRSD: 98 T: 40 QT: 384 QTc: 435 Interpretive Statements SINUS RHYTHM COMPARED TO ECG 04/28/2023 16:38:03 SINUS RHYTHM NOW PRESENT Electronically Signed On 04-30-2023 11:15:48 CDT by Mary Farnsworth M.D.
[2023-04-29] MEDS: ALPRAZolam (*CRX) 0.5 MG TABLET 1 MG PO (18:17)
[2023-04-29] MEDS: CYCLOBENZAPRINE HCL 10 MG TABLET PO (20:34)
[2023-04-29] MEDS: DESIPRAMINE HCL 25 MG TABLET 150 MG PO (20:34)
[2023-04-30] MEDS: HYDROcodone/acetaminophen (*CRX) 7.5-325 MG TABLET 1 TAB PO ×3 (01:10→13:26)
[2023-04-30 04:28] LABS: Basophils Percent Auto 0.7 % (0.2-1.2); Eosinophils Absolute Auto 0.1 K/mm3 (0-0.3); Eosinophils Percent Auto 2.4 % (0-4.4); Hematocrit 40.3 % (37.0-47.0); Hemoglobin 13.1 g/dL (12.0-15.0); Immature Granulocyte Absolute 0.01 K/mm3 (0.00-0.031); Immature Granulocyte Percent A 0.2 % (0-0.5); Lymphocytes Absolute Auto 2.06 K/mm3 (0.9-3.2); Lymphocytes Percent Auto 35.8 % (18.3-44.2); Mean Corpuscular HGB Conc 32.5 g/dl (32-36); Mean Corpuscular Hemoglobin 35.6 pg (26-34); Mean Corpuscular Volume 109.5 fl (80-100); Mean Platelet Volume 9.1 fl (7.4-10.4); Monocytes Absolute Auto 0.7 K/mm3 (0.1-0.6); Neutrophils Absolute Auto 2.8 K/mm3 (1.3-6.7); Neutrophils Percent Auto 48.9 % (45.5-73.1); Platelet Count Result 278 k/mm3 (150-375); Red Blood Count 3.68 M/mm3 (4.2-5.4); Red Cell Distribution Width 14.3 % (11.5-14.5); White Blood Count 5.8 K/mm3 (4.5-10.0)
[2023-04-30] MEDS: busPIRone HCL 10 MG, busPIRone HCL 5 MG 15 MG PO ×2 (04:37→13:26)
[2023-04-30 08:00] VITALS: BP 118/75; PULSE 84; RESP 16; TEMP 36.1; O2SAT 99
--- NOTE | 2023-04-30 08:23 | PC.NURSE ---
Spoke with Amaya Rondon RN who reports poison control center has cleared patient and closed case on 04/28/23.
[2023-04-30 09:22] VITALS: PULSE 80
[2023-04-30] MEDS: METOPROLOL TARTRATE 25 MG TABLET PO (09:22)
--- NOTE | 2023-04-30 09:41 | PC.NURSE ---
Report given to Asia Olivera RN for potential admission to [facility].
[2023-04-30] MEDS: diazePAM INJ (*CRX) 10 MG/2 ML SYRINGE 5 MG IV PUSH (11:30)
--- NOTE | 2023-04-30 11:51 | PM.IMPN ---
Progress Note: A&P Assessment and Plan (1) Acute drug overdose: Qualifiers: Encounter type: subsequent encounter Injury intent: intentional self-harm Qualified Code(s): T50.902D - Poisoning by unspecified drugs, medicaments and biological substances, intentional self-harm, subsequent encounter Code(s): T50.901A - Poisoning by unspecified drugs, medicaments and biological substances, accidental (unintentional), initial encounter Status: Acute Assessment and Plan: Acute toxic encephalopathy ER also reported that the mother called back and stated that the patient had a new prescription for Fioricet on April 25 and had 60 tablets when it was filled and now the bottles empty.? Also buspirone dose each was questionable as well.? The patient denies any drug overdose.? ? ABG was obtained 7.415 PH pCO2 is 33.5.? PO2 75.5.? Her potassium was noted to be 2.9.? Chloride 109.? Urine was negative.? Toxicology solicit takes was less than 1.0 and barbiturates positive. Her toxicology screen was positive for barbiturates The patient stated that she did not taken overdose of medication. Patient stated that her mother killed her dog and she is very sad about it. previous history of Tylenol and lithium overdose in the past. Is reported that the patient overdose on Fioricet. Will continue to monitor her Tylenol level. Her Tylenol level was 22 trending down less than 10 now patient is medically cleared. patient will need have crisis evaluate her today Will move patient to medical floor today . (2) Major depression with psychotic features: Code(s): F32.3 - Major depressive disorder, single episode, severe with psychotic features Status: Acute Assessment and Plan: Patient is calm, no hallucination mood is depressed Patient will need evaluation by crisis team She has a history of schizophrenia. She is not currently in restraints. (3) Altered mental status: Code(s): R41.82 - Altered mental status, unspecified Status: Acute Assessment and Plan: Head CT has been ordered. UA was negative. Alert and oriented today (4) Depression: Code(s): F32.A - Depression, unspecified Status: Acute Assessment and Plan: Patient will need to be evaluated by crisis before discharge (5) Hypokalemia: Code(s): E87.6 - Hypokalemia Status: Acute Assessment and Plan: Replete potassium chloride Follow-up BMP magnesium, Correct electrolyte abnormality accordingly (6) Agitation: Code(s): R45.1 - Restlessness and agitation Status: Acute Assessment and Plan: P.r.n. Ativan. (7) Toxic encephalopathy: Code(s): G92.9 - Unspecified toxic encephalopathy Status: Acute (8) Schizophrenia: Code(s): F20.9 - Schizophrenia, unspecified Status: Acute Assessment and Plan: Hold home medications with side effect of arrhythmia (9) COPD (chronic obstructive pulmonary disease): Code(s): J44.9 - Chronic obstructive pulmonary disease, unspecified Status: Acute (10) Sinus tachycardia: Code(s): R00.0 - Tachycardia, unspecified Status: Acute Assessment and Plan: EKG shows sinus rhythm no specific ST-T wave changes Resume more Toprol p.o. at home dose Metoprolol 5 mg IV push x1 Now patient has a sinus rhythm, rate is controlled Subjective Date/time seen: 04/30/23 11:51 Interval history: I saw exam patient in ICU, patient is medically cleared for transport and psychiatric admission Review of Systems Review of Systems: All systems reviewed & are unremarkable except as noted in HPI and below Exam Narrative: GENERAL: Lethargic, in no acute distress. Well-nourished. - EYES: EOMI. Anicteric. - HENT: Moist mucous membranes. - LUNGS: Clear to auscultation bilaterally, no wheezing, rhonchi, or rales. - CARDIOVASCULAR: Regular rate and rhythm. Tachycardia, no murmur. No JVD.
[2023-04-30] MEDS: diazePAM (*CRX) 10 MG TABLET PO (11:52)
[2023-04-30] MEDS: BENZTROPINE MESYLATE 1 MG TABLET 2 MG PO (12:36)
[2023-04-30] MEDS: chlorproMAZINE HCL 25 MG TABLET 100 MG PO (12:37)
[2023-05-02 12:55] LABS: Glucose Point of Care 114 mg/dl (65-105)
== END 2023-04-30 15:05 | DRG 917 ==
LOC: ANHED 12:14 → ANHIMU 13:08 → ANHICU 14:49 → ANH3MED 04-29 18:52 → ANHICU 04-29 18:59
PROVIDERS: Nurse Practitioner; Admitting Provider Hospitalist; Emergency Provider Emergency Medicine; PCP Internal Medicine Gastroenterology; Visit Provider Family Medicine
DX: T50.901A Poisoning by unspecified drugs, medicaments and biological substances, accidental (unintentional), initial encounter (principal); G92.8 Other toxic encephalopathy; F32.3 Major depressive disorder, single episode, severe with psychotic features; F41.9 Anxiety disorder, unspecified; E87.6 Hypokalemia; J44.9 Chronic obstructive pulmonary disease, unspecified; R45.1 Restlessness and agitation; R00.0 Tachycardia, unspecified; G43.909 Migraine, unspecified, not intractable, without status migrainosus; F17.210 Nicotine dependence, cigarettes, uncomplicated; Z20.822 Contact with and (suspected) exposure to COVID-19; Z79.82 Long term (current) use of aspirin
CPT/HCPCS: 36415; 36600; 70450; 71045; 80048; 80053; 80307; 81003; 81025; 82550; 82805; 82948; 83605; 83690; 83735; 84443; 84702; 85025; 85610; 85730; 87426; 93005; 96361; 96374; 99285; A9270; C9803; J1200; J2060; J2270; J2550; J3360; J3480; J7030; J7040

== ENCOUNTER 2023-05-24 18:21 | Inpatient (IN) | payer MEDICARE, MEDICAID, SELFPAY ==
[2023-05-24] VITALS (14 sets, daily range): BP systolic 95–139; BP diastolic 69–98; PULSE 94–99; RESP 14–22; TEMP 36.5; O2SAT 96–97
--- NOTE | ~2023-05-24 | XR_ITS ---
XR retrograde pyelogram BI DATE: 05/30/2023 10:22 INDICATION: Bilateral hydronephrosis TECHNIQUE: 116.7 seconds fluoroscopy time 34.26 mGy COMPARISON: 05/27/2023 CT abdomen pelvis FINDINGS: Moderate right hydronephrosis and pelviectasis. Cannot exclude urothelial mass/malignancy i n the right ureter in the S2 region. Correlation with procedural findings at cystoscopy. No filling defect or dilatation of the left ureter or left renal collecting system. IMPRESSION: Cannot exclude right ureteral mass; recommend correlation with procedural findings and po ssibly CT abdomen pelvis with IV contrast material as clinically appropriate Reviewed, dictated and finalized at [facility]. Reviewed, dictated and finalized at location A. IMPRESSION: Cannot exclude right ureteral mass; recommend correlation with proc edural findings and possibly CT abdomen pelvis with IV contrast material as cli nically appropriate
--- NOTE | ~2023-05-24 | CT_ITS ---
EXAMINATION: CT brain wo con INDICATION: Altered mental status COMPARISON: 04/28/2023 TECHNIQUE: Standard unenhanced head CT. The dose-length product (DLP) was 908.00 mGy-cm. The mA was a djusted according to patient size. Iterative reconstruction technique was employed. FINDINGS: No intracranial hemorrhage, acute infarction, or abnormal mass lesion. The ventricles are n ormal. No abnormal mass effect or midline shift. The bellamy-white matter differentiation is normal. The basal cisterns are patent. The orbits are normal. The paranasal sinuses, and mastoids are normal. 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 IMPRESSION: 1. No acute intracranial abnormality. Reviewed, dictated and finalized at location F.
--- NOTE | ~2023-05-24 | NM_ITS ---
EXAMINATION: PEREZ mas renal scan DATE: 05/28/2023 13:26 INDICATION: Bilateral hydronephrosis TECHNIQUE: 8.4 mCi Tc-99m MAG3 was administered IV. 40 mg furosemide was administered IV immediately afterward. A posterior abdominal radionuclide angiogram was obtained. A subsequent time course of st atic images of the kidneys, ureters, and bladder was obtained. COMPARISON: None FINDINGS: The posterior abdominal radionuclide angiogram and sequential static images show normal size, positio n, and morphology of the kidneys. Peak renal parenchymal uptake was 3.4 min in left kidney and 8.4 mi n in right kidney (normal peak 3-5 minutes). The relative early renal uptake was 54% on the left and 46% on the right (<40% is abnormal). Subtle small amount of activity is seen on multiple images arnaldo ng the right ureter consistent with mild right hydroureter. T1/2 for clearance of activity from the left kidney and proximal collecting system was 14 minutes. T1/2 for clearance of activity from the right kidney and proximal collecting system was >22 minutes. Notes on interpretation: T1/2 <10 minutes is normal, 10-15 minutes is low grade obstruction of questi onable clinical significance, 15-20 minutes is partial obstruction that is likely clinically signific ant, >20 minutes is high grade obstruction. Note that false positives may be seen with supine positio cesar, dehydration, severely dilated nonobstructed kidney, atonic collecting system, poor renal functi on, and chronic furosemide use. IMPRESSION: 1. Symmetric kidney function. 2. Mildly delayed activity clearance from the right kidney consistent with low-grade obstruction of questionable clinical significance and more significantly delayed activity clearance from the right k idney consistent with high-grade obstruction. Reviewed, dictated and finalized at location A. IMPRESSION: 1. Symmetric kidney function. 2. Mildly delayed activity clearance from the right kidney consistent with low -grade obstruction of questionable clinical significance and more significantly delayed activity clearance from the right kidney consistent with high-grade ob struction.
--- NOTE | ~2023-05-24 | US_ITS ---
US abdomen complete DATE: 05/25/2023 11:15 INDICATION: Evaluate for cirrhosis, ascites, splenomegaly TECHNIQUE: Real-time imaging and Doppler analysis COMPARISON: 04/06/2016 Limited abdominal ultrasound examination FINDINGS: Examination is limited due to patient being agitated and in position. No hepatic space-occupying mass lesion or surface nodularity is appreciated. Normal hepatopedal eda l venous flow direction. Splenic size is within normal range. Common bile duct measures 2 mm, normal. Approximately 5 x 18 mm stone or bile secretion in the dependent aspect of the gallbladder. No gallbl adder wall thickening or pericholecystic fluid collection. Negative sonographic Rios's sign. Moderate right and mild left hydronephrosis. Abdominal aorta and inferior vena cava are patent. IMPRESSION: Suspected cholelithiasis Bilateral hydronephrosis, greater on the right Reviewed, dictated and finalized at [facility]. Reviewed, dictated and finalized at location A.
--- NOTE | ~2023-05-24 | XR_ITS ---
EXAMINATION: XR chest 1V portable INDICATION: Altered mental status TECHNIQUE: Portable AP chest at 1850 hours COMPARISON: 04/27/2023 FINDINGS: The lung volumes are low. The lungs are free of acute opacities. No pleural effusion or pne umothorax. The cardiomediastinal silhouette is normal. IMPRESSION: 1. No acute cardiopulmonary abnormality. Reviewed, dictated and finalized at location F.
--- NOTE | ~2023-05-24 | CT_ITS ---
EXAMINATION: CT abdomen pelvis wo con DATE: 05/27/2023 08:07 INDICATION: Bilateral hydronephrosis TECHNIQUE: Computed tomography (CT) of the abdomen and pelvis was performed without intravenous contr ast. The dose-length product (DLP) was 424.97 mGy-cm. Automated exposure control and iterative recons truction technique were employed. COMPARISON: None FINDINGS: Minimal dependent atelectasis is present in the lung bases. The heart size is normal. The l iver, spleen, pancreas, gallbladder, and adrenal glands are normal. There is moderate right and mild left hydronephrosis. There is mild right hydroureter. No urolithiasis is identified. The bladder is d ecompressed by Rich catheter. There is an 8 mm hemorrhagic cyst of the right kidney. No pathological ly enlarged abdominal or pelvic lymph nodes are identified. No free intraperitoneal gas or evidence o f bowel obstruction. The appendix is normal. There is moderate lumbar spondylosis at L5-S1. IMPRESSION: 1. Moderate right and mild left hydronephrosis of unclear etiology. Reviewed, dictated and finalized at location B.
--- NOTE | 2023-05-24 18:25 | ECG_ITS ---
Measurements Intervals [place] Rate: 95 P: 70 NE: 133 QRS: 11 QRSD: 101 T: 38 QT: 379 QTc: 477 Interpretive Statements SINUS RHYTHM POSSIBLE LEFT ATRIAL ENLARGEMENT INCOMPLETE RIGHT BUNDLE BRANCH BLOCK DELAYED PRECORDIAL R/S TRANSITION BORDERLINE ECG COMPARED TO ECG 04/29/2023 17:30:45 INCOMPLETE RIGHT BUNDLE-BRANCH BLOCK NOW PRESENT Electronically Signed On 05-24-2023 20:40:52 CDT by Tony Chen D.O.
[2023-05-24 18:44] LABS: Alveolar/Arterial O2 Gradient 41.7 mmHg; Base Excess ABG -1.9 mEq/l (+/-2.0); Fractional Inspired Oxygen 21 %; HCO3 ABG 23.2 mEq/l (22.0-26.0); Oxygen Content ABG 17.7 %vol (16.0-22.0); Oxygen Saturation ABG 90.1 % (95.0-100.0); PCO2 ABG 40.7 mmHg (35.0-45.0); PO2 ABG 59.3 mmHg (80.0-100.0); PO2 FiO2 Ratio Arterial Blood 2.82 %; Total Hemoglobin 14.5 g/dL (12.0-18.0); pH ABG 7.373 (7.350-7.450)
[2023-05-24 18:46] LABS: Device ROOM AIR; Modified Allen's Test Pass; Oxyhemoglobin 86.7 % THb (90.0-100.0); Site Drawn RIGHT RADIAL
[2023-05-24 18:46] LABS: Glucose Point of Care 145 mg/dl (65-105)
[2023-05-24] MEDS: SODIUM CHLORIDE 0.9% IV 1,000 ML 999 ML IV CONT (18:55)
[2023-05-24 18:58] LABS: Basophils Absolute Auto 0.1 K/mm3 (0.0-0.1); Basophils Percent Auto 0.5 % (0.2-1.2); Eosinophils Absolute Auto 0.1 K/mm3 (0-0.3); Eosinophils Percent Auto 1.1 % (0-4.4); Hematocrit 42.4 % (37.0-47.0); Immature Granulocyte Absolute 0.08 K/mm3 (0.00-0.031); Immature Granulocyte Percent A 0.7 % (0-0.5); Lymphocytes Absolute Auto 3.41 K/mm3 (0.9-3.2); Lymphocytes Percent Auto 30.9 % (18.3-44.2); Mean Corpuscular Hemoglobin 34.8 pg (26-34); Mean Corpuscular Volume 105.5 fl (80-100); Mean Platelet Volume 9.4 fl (7.4-10.4); Monocytes Absolute Auto 1.1 K/mm3 (0.1-0.6); Neutrophils Absolute Auto 6.3 K/mm3 (1.3-6.7); Neutrophils Percent Auto 56.8 % (45.5-73.1); Platelet Count Result 424 k/mm3 (150-375); Red Blood Count 4.02 M/mm3 (4.2-5.4); Red Cell Distribution Width 12.9 % (11.5-14.5); White Blood Count 11.1 K/mm3 (4.5-10.0)
[2023-05-24 19:10] LABS: INR 0.9; Prothrombin Time 12.7 Seconds (11.1-14.7)
[2023-05-24 19:11] LABS: Acetaminophen 89 ug/mL (10-30); Ethanol < 10 mg/dL (<10); Partial Thromboplastin Time 28.2 SECONDS (22.3-36.8); Salicylate < 1.0 mg/dL (2-20)
[2023-05-24 19:13] LABS: Alanine Aminotransferase 29 U/L (6-35); Albumin Level 4.4 g/dL (3.5-5.1); Alkaline Phosphatase 133 U/L (38-126); Anion Gap 8 mmol/L (8-16); Aspartate Amino Transferase 31 U/L (14-36); Bilirubin,Total 0.6 mg/dL (0.2-1.3); Blood Urea Nitrogen 10 mg/dL (7-17); Calcium 9.5 mg/dL (8.4-10.2); Carbon Dioxide 27 mmol/L (22-30); Chloride 105 mmol/L (98-107); Estimated CRCL calculation 90 ml/min; Estimated Glomerular Filt Rate > 60; Glucose 149 mg/dL (65-110); Phosphorus 3.9 mg/dL (2.5-4.5); Potassium 3.2 mmol/L (3.4-5.0); Sodium 140 mmol/L (137-145)
[2023-05-24 19:15] LABS: Lactic Acid Reflex 0.8 mmol/L (0.7-2.0)
[2023-05-24 19:21] LABS: Amphetamine Screen Urine Negative (Negative); Barbiturate Screen Urine Positive (Negative); Benzodiazepines Screen Urine Negative (Negative); Cannabinoid Screen Urine Negative (Negative); Cocaine Screen Urine Negative (Negative); Methadone Screen Urine Negative (Negative); Opiate Screen Urine Positive (Negative); Phencyclidine Screen Urine Negative (Negative)
[2023-05-24 19:22] LABS: Appearance Urine Clear (Clear); Bacteria Urine 4+ /hpf; Bilirubin Urine Negative (Negative); Blood Urine Negative (Negative); Color Urine Yellow (Yellow); Glucose Urine UA Negative (Negative); Ketones Urine Negative (Negative); Leukocyte Esterase Ur 2+ LEU/UL (Negative); Nitrate Urine Positive (Negative); Non Pathogenic Casts 0-2; Protein Urine Negative (Negative); RBC Urine 0-2 /hpf (0-2); Specific Grav Ur 1.015 (1.001-1.035); Squamous Epithelial Cell Urine None seen /hpf (Few); Urobilinogen Urine 0.2 mg/dL (<2.0); WBC Urine 21-50 /hpf; pH Urine 5.5 (5.0-9.0)
--- NOTE | 2023-05-24 19:22 | ED.OVERDOSE ---
HPI - Overdose General Chief Complaint: Overdose Stated Complaint: overdose Time Seen by Provider: 05/24/23 18:24 Source: EMS and RN notes reviewed Mode of arrival: EMS Limitations: altered mental status History of Present Illness HPI Narrative: This is a 57 year old female with history of bipolar who presents via EMS for evaluation of possible overdose. EMS states patient was found by mother out of it. They report patient at some point today told her she would not see her again. It is reported patient recently had 2 new prescriptions filled of fiorQardiot and Viewfinity but they can not find the bottles. PAtient his history of overdose in the past. They think she may have take medication 1-2 hours prior to arrival. Related Data Home Medications Medication Instructions Recorded Confirmed benztropine 2 mg tablet 2 mg PO Q12H 04/18/22 04/27/23 iqshqrsutr-dfshnhmqrbxmn-wkeyenrv 1 tablet PO Q8H PRN Headache 04/18/22 04/27/23 50 mg-325 mg-40 mg tablet prazosin 5 mg capsule 5 mg PO HS 04/18/22 04/27/23 cyclobenzaprine 10 mg tablet 10 mg PO QHS 11/22/22 04/27/23 desipramine 150 mg tablet 150 mg PO QHS 11/22/22 04/27/23 ondansetron HCl 4 mg tablet 4 mg PO Q8H 11/22/22 04/27/23 chlorpromazine 100 mg tablet 100 mg PO Q12H 03/27/23 04/27/23 buspirone 15 mg tablet 15 mg PO Q8H 03/28/23 04/27/23 hydrocodone 10 mg-acetaminophen 1 tablet PO BID PRN Pain 04/29/23 04/29/23 325 mg tablet Allergies Allergy/AdvReac Type Severity Reaction Status Date / Time grass pollen Allergy Intermediate Hives Verified 04/27/23 10:09 amoxicillin [From Augmentin] Allergy Hives Verified 04/27/23 10:09 asenapine [From Saphris] Allergy Hives Verified 04/27/23 10:09 bacitracin Allergy Rash Verified 04/27/23 10:09 [From Neosporin ([id number])] clavulanic acid Allergy Hives Verified 04/27/23 10:09 [From Augmentin] erythromycin base Allergy Hives Verified 04/27/23 10:09 haloperidol [From Haldol] Allergy Swelling Verified 04/27/23 10:09 of Lip/Tongue/Throat latex Allergy Rash Verified 04/27/23 10:09 neomycin Allergy Rash Verified 04/27/23 10:09 [From Neosporin ([id number])] olanzapine [From Zyprexa] Allergy Swelling Verified 04/27/23 10:09 of Lip/Tongue/Throat polymyxin B Allergy Rash Verified 04/27/23 10:09 [From Neosporin ([id number])] risperidone [From Risperdal] Allergy Hives Verified 04/27/23 10:09 tramadol [From Ultram] Allergy Rash Verified 04/27/23 10:09 ciprofloxacin AdvReac Vomiting Verified 04/27/23 10:09 ibuprofen AdvReac Vomiting Verified 04/27/23 10:09 Steriod AdvReac Agitated Uncoded 04/27/23 10:09 Review of Systems Review of Systems: ROS unobtainable: Yes unobtainable due to mental status PMFSH Past Medical History Medical History Ankle fracture, lateral malleolus, closed December 2022 Anxiety Back pain Bipolar mood disorder Carpal tunnel syndrome COPD (chronic obstructive pulmonary disease) Distal radial fracture December 2022 Drug overdose Migraine Overdose of lithium or lithium compound Schizophrenia Seizure Suicide attempt Surgical History Surgical History H/O dilation and curettage H/O foot surgery 2021 X2 H/O tubal ligation H/O: hysterectomy 2000 History of back surgery 1999 History of tonsillectomy Family History Family History Father Alcoholism Grandparent Diabetes mellitus Hypertension Heart disease Mother Kidney disease Grandparent Alcoholism Social History Social History Social History: The patient is noted to be single and disabled. Her mother is listed as a durable power of employee benefits attorney for healthcare. She is listed as a full code. Smoking packs per day: 1.5 Smoking cigarettes per day: 30.0 Years smoked
[2023-05-24] MEDS: NALOXONE HCL INJ 2 MG/2 ML AMP IV PUSH (19:31)
[2023-05-24 19:39] LABS: Add Urine Microscopic? YES
--- NOTE | 2023-05-24 20:16 | PM.IMHP ---
H&P: HPI History of Present Illness Date/Time: 05/24/23 20:16 Chief Complaint: OD Narrative: THIS IS A 57-YEAR-OLD FEMALE WITH PAST MEDICAL HISTORY SIGNIFICANT FOR BIPOLAR DISORDER, SUICIDAL ATTEMPT, WAS BROUGHT TO THE EMERGENCY ROOM AFTER SHE WAS FOUND UNRESPONSIVE BY HER MOM HAD MADE A STATEMENT EARLIER IN THE DAY THAT TODAY WILL BE THE LAST TIME YOU SEE ME LATER ON HER MOM FOUND HER UNRESPONSIVE AND HER PILL BOTTLES WERE NOT FOUND A URINE TOX WAS POSITIVE FOR BARBITURATES, OPIATES A TYLENOL LEVEL WAS 89. POISON CONTROL WAS CONTACTED AND RECOMMENDATIONS WERE TO START ACETYLCYSTEINE. PATIENT HAS BEEN ADMITTED TO ICU. EXAMINATION: XR chest 1V portable INDICATION: Altered mental status TECHNIQUE: Portable AP chest at 1850 hours COMPARISON: 04/27/2023 FINDINGS: The lung volumes are low. The lungs are free of acute opacities. No pleural effusion or pneumothorax. The cardiomediastinal silhouette is normal. IMPRESSION: 1. No acute cardiopulmonary abnormality. EXAMINATION: CT brain wo con ? INDICATION: Altered mental status ? COMPARISON: 04/28/2023 TECHNIQUE: Standard unenhanced head CT. The dose-length product (DLP) was 908.00 mGy-cm. The mA was adjusted according to patient size. Iterative reconstruction technique was employed. ? FINDINGS: No intracranial hemorrhage, acute infarction, or abnormal mass lesion. The ventricles are normal. No abnormal mass effect or midline shift. The bellamy-white matter differentiation is normal. The basal cisterns are patent. The orbits are normal. The paranasal sinuses, and mastoids are normal. 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 ? IMPRESSION: 1. No acute intracranial abnormality. Review of Systems Review of Systems: ROS unobtainable: Yes unobtainable due to mental status ( DELIRIUM, OBTUNDATION) [facility] Past Medical History Medical History (Updated 05/25/23 @ 02:15 by Brenda Phillip MD) Ankle fracture, lateral malleolus, closed December 2022 Anxiety Back pain Bipolar mood disorder Carpal tunnel syndrome COPD (chronic obstructive pulmonary disease) Distal radial fracture December 2022 Drug overdose Migraine Overdose of lithium or lithium compound Schizophrenia Seizure Suicide attempt Surgical History Surgical History H/O dilation and curettage H/O foot surgery 2021 X2 H/O tubal ligation H/O: hysterectomy 2000 History of back surgery 1999 History of tonsillectomy Family History Family History Father Alcoholism Grandparent Diabetes mellitus Hypertension Heart disease Mother Kidney disease Grandparent Alcoholism Social History Social History Social History: The patient is noted to be single and disabled. Her mother is listed as a durable power of tax associate attorney for healthcare. She is listed as a full code. Smoking packs per day: 1.5 Smoking cigarettes per day: 30.0 Years smoked: 47 Smoking pack-years: 70.50 Smoking status: Current every day smoker Second hand tobacco smoke exposure: No Alcohol intake: unknown Substance use: unknown Substance use type: painkillers and prescription drug Other substance usage details: something for headaches Last use: 03/25/23 Lack of Transportation: No Lack of Food: Never True Current Housing: I Have Housing Concerned About Future Housing: YES Difficulty Paying Gas/Electric Bills: No Difficulty Paying for Meds: No Currently Unemployed: No Education: Grade School Difficulty w/ Childcare or Family Care: No Living arrangements: with family Occupation/Education: unemployed Spiritual care concerns: No Meds Home Medications and Allergies Home Medications Medication Instructions Recorded Confirmed Type benztropine 2 mg tablet 0.5 mg PO Q8H PRN involuntary 04/18/22 05/25/23 History movement
[2023-05-25] VITALS (30 sets, daily range): BP systolic 92–154; BP diastolic 43–90; PULSE 56–125; RESP 14–29; TEMP 36.5–38.7; O2SAT 93–100; BMI 25.4
[2023-05-25] MEDS: LACTATED RINGERS 1,000 ML 125 ML IV CONT ×2 (00:42→07:55)
[2023-05-25] MEDS: dexmedeTOMIDine 400 MCG/100 ML 400 MCG/100 ML BAG IV CONT (01:27)
--- NOTE | 2023-05-25 01:30 | ADMIMU ---
This patient, Mahnaz Oseguera, was admitted to IMU status 0000, and placed in Intensive Care Unit-7. Patient/family oriented to hospital policies and general routines including ID bracelet, bed and alarms, visiting hours, pain management, procedures, bathroom and other care routines, personal items, smoking policy, room service/diet, and visiting hours. Valuables list has been completed. Information on how to activate the Rapid Response Team has been discussed. Patient/Family are encouraged to report perceived risks to care and to ask questions if they do not understand what they are told or what they should do.
--- NOTE | 2023-05-25 01:33 | PC.NURSE ---
0025 dr Phillip called due to pat agitation, moaning, attempting to crawl backwards out of the bed. Haldol ordered but patient has allergy so restraints ordered.
--- NOTE | 2023-05-25 01:35 | PC.NURSE ---
0055 Patient fighting against restraints and hitting head on rails. Rails padded for patient safety and pt straightened up in bed. Pt immediately attempts rolling in bed, sitting up, and kicking legs up.
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
--- NOTE | 2023-05-25 01:38 | PC.NURSE ---
0125 Due to allergies safety of precedex verified with pharmacy. Pt behavior explained to Dr Phillip and order for precedex drip received. made Dr Phillip aware this requires a transfer to ICU status. Dr Phillip prefers this nurse call Dr Gay.
--- NOTE | 2023-05-25 01:40 | PC.NURSE ---
0132 Dr Gay made aware of patient behavior and this patient being placed on precedex drip with transfer to ICU status. Replies that's fine .
--- NOTE | 2023-05-25 01:57 | PC.NURSE ---
0149 called Mother Landy Silva for admit information. Left voicemail.
[2023-05-25 04:51] LABS: Basophils Percent Auto 0.3 % (0.2-1.2); Eosinophils Percent Auto 0.2 % (0-4.4); Hemoglobin 12.7 g/dL (12.0-15.0); Immature Granulocyte Absolute 0.07 K/mm3 (0.00-0.031); Immature Granulocyte Percent A 0.6 % (0-0.5); Lymphocytes Absolute Auto 1.67 K/mm3 (0.9-3.2); Lymphocytes Percent Auto 13.5 % (18.3-44.2); Mean Corpuscular HGB Conc 33.4 g/dl (32-36); Mean Corpuscular Hemoglobin 35.3 pg (26-34); Mean Corpuscular Volume 105.6 fl (80-100); Mean Platelet Volume 9.3 fl (7.4-10.4); Monocytes Absolute Auto 1.2 K/mm3 (0.1-0.6); Monocytes Percent Auto 9.4 % (2.6-8.5); Neutrophils Absolute Auto 9.4 K/mm3 (1.3-6.7); Platelet Count Result 355 k/mm3 (150-375); Red Cell Distribution Width 12.5 % (11.5-14.5); White Blood Count 12.3 K/mm3 (4.5-10.0)
--- NOTE | 2023-05-25 05:10 | PC.NURSE ---
Patient resting quietly until lab draw. Than patient sitting up in bed, pulling at IVs; broke IV tubing. Pulling at tele monitor refusing to wear gown. precedex turned up to .07 and retsraints placed back on patient.
[2023-05-25 05:17] LABS: Macrocytosis 1+ (NORMAL); Platelet Estimate Adequate (Adequate); Schistocytes None Seen (NORMAL)
[2023-05-25 05:24] LABS: Alanine Aminotransferase 23 U/L (6-35); Albumin Level 3.5 g/dL (3.5-5.1); Alkaline Phosphatase 99 U/L (38-126); Anion Gap 8 mmol/L (8-16); Aspartate Amino Transferase 21 U/L (14-36); Bilirubin,Total 0.4 mg/dL (0.2-1.3); Blood Urea Nitrogen 7 mg/dL (7-17); Calcium 8.9 mg/dL (8.4-10.2); Carbon Dioxide 22 mmol/L (22-30); Chloride 108 mmol/L (98-107); Estimated CRCL calculation 110 ml/min; Estimated Glomerular Filt Rate > 60; Glucose 125 mg/dL (65-110); Potassium 2.8 mmol/L (3.4-5.0); Sodium 138 mmol/L (137-145)
[2023-05-25] MEDS: POTASSIUM CHLORIDE INJ 40 MEQ in SODIUM CHLORIDE 0.9% IV 500 ML 130 MEQ IVPB ×3 (07:46→21:27)
[2023-05-25] MEDS: dexmedeTOMIDine 400 MCG/100 ML 400 MCG/100 ML BAG 15.71 MCG IV CONT (07:56)
[2023-05-25 09:07] LABS: Glucose Point of Care 117 mg/dl (65-105)
--- NOTE | 2023-05-25 09:21 | PC.NURSE ---
Updated patient's mother, Midred, with paitent condition and plan of care.
--- NOTE | 2023-05-25 09:46 | PM.IMPN ---
Progress Note: A&P Assessment and Plan (1) Drug overdose: Code(s): T50.901A - Poisoning by unspecified drugs, medicaments and biological substances, accidental (unintentional), initial encounter Status: Acute Assessment and Plan: Patient told her mother that she would not see her again. Later patient's mother found the patient unresponsive in EMS was called. It is reported with patient has 2 new prescriptions filled of Fioricet and [place]. Patient has a history of drug overdose in the past. Urine drug screen is positive for opiates and barbiturates. Acetaminophen level is 89. She has been started on acetylcysteine. Due to her agitation, Precedex has been started. She is on IV fluids. Wean Precedex as she tolerates. (2) Suicide attempt: Code(s): T14.91XA - Suicide attempt, initial encounter Status: Acute Assessment and Plan: Patient with bipolar disorder and schizophrenia. She has a history of suicide attempt with drug overdose. Once patient is medically stable, she will need to be transferred to a psychiatric facility for further care. (3) Hypokalemia: Code(s): E87.6 - Hypokalemia Status: Acute Assessment and Plan: Potassium 2.8 this morning. Replacement ordered. Could be related to IV fluids. On chart review, it appears that she does have a history of intermittent hypokalemia. Not on diuretics at home. Check TSH and cortisol level. (4) Substance use disorder: Code(s): F19.90 - Other psychoactive substance use, unspecified, uncomplicated Status: Acute Assessment and Plan: Patient has a history of substance abuse. She may be undergoing withdrawal symptoms. Continue to monitor closely. (5) COPD (chronic obstructive pulmonary disease): Code(s): J44.9 - Chronic obstructive pulmonary disease, unspecified Status: Acute Assessment and Plan: Patient has a history of COPD. She is not on any inhalers listed. No active wheezing. She remains on room air. Continue to follow. (6) Bipolar mood disorder: Code(s): F31.9 - Bipolar disorder, unspecified Status: Acute Assessment and Plan: Patient with bipolar disorder with psychotic features. She also has schizophrenia listed in her medical history. Home medications on hold at this time. Plan for psychiatric placement when stable. (7) Hepatitis C: Code(s): B19.20 - Unspecified viral hepatitis C without hepatic coma Status: Acute Assessment and Plan: Patient has positive hepatitis C panel 1 year ago. Unclear if she has been treated. Plan Macrocytosis -patient has a chronic macrocytosis. B12 level was normal 1 year ago. Will repeat. Could be related to underlying liver disease given her hepatitis C. check abdominal ultrasound DVT prophylaxis -SCDs Code status -full Gastric prophylaxis -not required Subjective Date/time seen: 05/25/23 09:46 Interval history: 57yo female with bipolar disorder, schizophrenia and suicide attempts brought in by EMS for altered mental status form suspected drug overdose. Patient is on sedation but still agitated at times. She is unable to provide hx. No falls that have been reported. Review of Systems Review of Systems: ROS unobtainable: Yes unobtainable due to mental status Exam Narrative: AF 98.8 103/66 59 19 100% ra Gen - agitated, NARD Chest - clear bilaterally. CV - RRR S1/S2. Tele showing no significant dysrhythmias Abd - Soft, +BS, mild diffuse pain? Ext - No pedal edema Neuro - [place]. agitated, writhing Skin - Warm and dry Objective Data Vital Signs Vital Signs: Vital Signs - 24 hr 05/24/23 18:22 05/24/23 19:33 05/24/23 19:36 Temperature 97.7 F Pulse Rate 96 96 96 Respiratory Rate 18 14 15 Blood Pressure 111/74 133/83 133/83 Pulse Oximetry 96 97 Oxygen Delivery Room Air 05/24/23 20:01 05/24/23 20:16 05/24/23 20:31 Temperature Pulse R
--- NOTE | 2023-05-25 10:55 | WPDCNINT ---
Assessment and Plan Assessment and plan (1) Drug overdose: Code(s): T50.901A - Poisoning by unspecified drugs, medicaments and biological substances, accidental (unintentional), initial encounter Status: Acute Assessment and Plan: Serum acetaminophen level 89 at the time of presentation Patient on NAC infusion which she will complete around 5:00 p.m. today. Will recheck Tylenol level and hepatic patient panel at that time. (2) Agitation: Code(s): R45.1 - Restlessness and agitation Status: Acute Assessment and Plan: Continue Precedex infusion and wean it off (3) Urinary tract infection: Code(s): N39.0 - Urinary tract infection, site not specified Status: Acute Assessment and Plan: Rocephin ordered Urine culture ordered and pending (4) Electrolyte abnormality: Code(s): E87.8 - Other disorders of electrolyte and fluid balance, not elsewhere classified Status: Acute Assessment and Plan: Patient is currently receiving potassium replacement and repeat level is already ordered Plan DVT prophylaxis -SCDs Stress ulcer prophylaxis - Nutrition - NPO Code Status - Full Code Engineering Mgr Consult Note Consult date: 05/25/23 Reason for consult: Drug overdose HPI: Mahnaz Oseguera is a 57 year old female with past medical history of bipolar mood disorder suicide attempt schizophrenia anxiety drug overdose was brought to hospital by EMS on her mother's request due to suspected overdose. Apparently patient had 2 prescriptions filled of Fioricet and [place] which they could not locate the bottles. Does have history of Tylenol and opioid overdose in the past. Her mother patient likely took medications 1-2 hours prior to presentation. Patient was agitated in the ED and could not provide any further meaningful history. She was given Narcan which helped with improvement in mental status but patient has remained uncooperative. Poison control was notified. Her acetaminophen level was 89. Was started on N-acetylcysteine. In ICU patient was agitated and uncooperative. She was started on Precedex infusion. Tox screen was positive for barbiturates and opiates. UA suggestive of UTI potassium level 2.8 this morning. LFTs are normal range. With normal INR. During my evaluation patient is on Precedex infusion but awake. She continues to moan and groan continuously without provide any meaningful history. She states she is hurting everywhere but unable to provide any further details. When I directly asked if she was having chest pain she answered yes. She also answered yes to back pain, headache, abdominal pain, pain in the legs. Patient follows commands unable to answer orientation questions or provide any meaningful history. Review of system is not obtainable . Review of Systems Review of Systems: ROS unobtainable: Yes unobtainable due to medical condition [facility] Past Medical History Medical History Ankle fracture, lateral malleolus, closed December 2022 Anxiety Back pain Bipolar mood disorder Carpal tunnel syndrome COPD (chronic obstructive pulmonary disease) Distal radial fracture December 2022 Drug overdose Migraine Overdose of lithium or lithium compound Schizophrenia Seizure Suicide attempt Surgical History Surgical History H/O dilation and curettage H/O foot surgery 2021 X2 H/O tubal ligation H/O: hysterectomy 2000 History of back surgery 1999 History of tonsillectomy Family History Family History Father Alcoholism Grandparent Diabetes mellitus Hypertension Heart disease Mother Kidney disease Grandparent Alcoholism Social History Social History Social History: The patient is noted to be single and disabled. Her mother is list
--- NOTE | 2023-05-25 11:23 | PC.NURSE ---
Updated Emerson with [place] [facility] about plan of care and labs ordered.
[2023-05-25] MEDS: KCL 20 MEQ/0.45% NS 1,000 ML 100 ML IV CONT ×2 (11:38→20:59)
[2023-05-25 11:45] LABS: Thyroid Stimulating Hormone Reflex 0.672 uIU/mL (0.465-4.68)
[2023-05-25 11:52] LABS: Glucose Point of Care 144 mg/dl (65-105)
[2023-05-25 12:17] LABS: Cortisol Random 9.66 ug/dL
[2023-05-25 12:51] LABS: Folic Acid 10.8 ng/mL (2.76->20)
--- NOTE | 2023-05-25 14:21 | PC.NURSE ---
Patient's mother at bedside, patient increasingly agitated.
[2023-05-25] MEDS: oxyCODONE HCL (*CRX) 5 MG TAB IR PO (14:26)
[2023-05-25 15:15] LABS: Potassium 2.7 mmol/L (3.4-5.0)
[2023-05-25] MEDS: dexmedeTOMIDine 400 MCG/100 ML 400 MCG/100 ML BAG 17.45 MCG IV CONT (15:47)
[2023-05-25 17:36] LABS: Acetaminophen < 10 ug/mL (10-30)
[2023-05-25 17:37] LABS: Alanine Aminotransferase 15 U/L (6-35); Albumin Level 2.8 g/dL (3.5-5.1); Aspartate Amino Transferase 29 U/L (14-36); Bilirubin,Total < 0.1 mg/dL (0.2-1.3)
[2023-05-25 18:00] LABS: Alkaline Phosphatase < 20 U/L (38-126)
--- NOTE | 2023-05-25 18:22 | PC.NURSE ---
Dr. Gay and Bárbara with [place] [facility] updated on LFTs and Acetaminophen levels.
[2023-05-25] MEDS: dexmedeTOMIDine 400 MCG/100 ML 400 MCG/100 ML BAG 22.69 MCG IV CONT (21:22)
[2023-05-25] MEDS: LORazepam INJ (*CRX) 2 MG/ML VIAL 1 MG IV PUSH (21:22)
[2023-05-25 23:22] LABS: Glucose Point of Care 130 mg/dl (65-105)
[2023-05-26] VITALS (17 sets, daily range): BP systolic 105–142; BP diastolic 62–75; PULSE 50–101; RESP 19–32; TEMP 36.4–37.3; O2SAT 92–97
[2023-05-26] MEDS: dexmedeTOMIDine 400 MCG/100 ML 400 MCG/100 ML BAG 20.94 MCG IV CONT (01:39)
[2023-05-26] MEDS: dexmedeTOMIDine 400 MCG/100 ML 400 MCG/100 ML BAG 19.2 MCG IV CONT (06:00)
[2023-05-26] MEDS: KCL 20 MEQ/0.45% NS 1,000 ML 100 ML IV CONT (06:01)
[2023-05-26] MEDS: LORazepam INJ (*CRX) 2 MG/ML VIAL 1 MG IV PUSH ×2 (07:35→21:05)
--- NOTE | 2023-05-26 08:01 | WPDINTPN ---
Progress Note: A&P Assessment and Plan (1) Drug overdose: Code(s): T50.901A - Poisoning by unspecified drugs, medicaments and biological substances, accidental (unintentional), initial encounter Status: Acute Assessment and Plan: Serum acetaminophen level 89 at the time of presentation. Poison control was consulted Patient was started on on NAC infusion. Post protocol infusion her Tylenol level was low with normal LFTs. (2) Agitation: Code(s): R45.1 - Restlessness and agitation Status: Acute Assessment and Plan: Currently on precedex infusion. Will try to wean it off and add p.r.n. Ativan for agitation Start low-dose scheduled Valium (3) Urinary tract infection: Code(s): N39.0 - Urinary tract infection, site not specified Status: Acute Assessment and Plan: Rocephin ordered Urine culture is growing E coli (4) Electrolyte abnormality: Code(s): E87.8 - Other disorders of electrolyte and fluid balance, not elsewhere classified Status: Acute Assessment and Plan: Patient had low potassium yesterday and received replacement. She became combative with health analyst and level was not checked this morning. Since patient is cam after Ativan dosing, I will request health analyst to try obtaining a blood sample again patient is currently receiving potassium replacement and repeat level is already ordered (5) Major depression with psychotic features: Code(s): F32.3 - Major depressive disorder, single episode, severe with psychotic features Status: Acute Assessment and Plan: Resume buspirone and venlafaxine Not sure patient was taking any of her medications. Will consult psychiatry for assistance with management of complicated psychiatric disorder Continue one-to-one sitter (6) Schizophrenia: Code(s): F20.9 - Schizophrenia, unspecified Status: Acute Assessment and Plan: See above (7) Hydronephrosis: Code(s): N13.30 - Unspecified hydronephrosis Status: Acute Assessment and Plan: Ultrasound showed bilateral hydronephrosis right greater than left No stones or obstruction Patient now has a Rich with normal creatinine Treatment of UTI as above (8) Cholelithiasis: Code(s): K80.20 - Calculus of gallbladder without cholecystitis without obstruction Status: Acute Assessment and Plan: Right upper quadrant ultrasound shows cholelithiasis with no evidence of cholecystitis Plan DVT prophylaxis -SCDs Nutrition -regular diet Code Status - Full Code Subjective Date/time seen: 05/26/23 Overnight events reviewed. Patient continues to be on Precedex infusion. Patient agitated this morning and screaming. Shouting 'please kill me', 'my mom is going to kill' 'I am hurting all over'. Patient would not answer any questions accept 'yes' to pain everywhere. She spits out most pills. She became combative with health analyst and did not allow blood draw this morning. Interval history: 57yo female with bipolar disorder, schizophrenia and suicide attempts brought in by EMS for altered mental status form suspected drug overdose. Review of Systems Review of Systems: ROS unobtainable: Yes unobtainable due to medical condition Exam Narrative: General: Pt is awake and agitated Lungs/Chest: Trachea central Clear BS B/L, No crackles or wheezing. Cardiac: RRR. Normal S1 S2. No murmurs Circulation: Pedal pulses are intact and symmetrical. Abdomen: Normal bowel sounds.. Soft. NT. ND. Patient started crying and shouting during abdominal exam Extremities: No clubbing, cyanosis or edema. Warm : Rich in place Neurologic: Moves all 4 extremities PERRL patient would not answer any orientation questions Skin: No Rash Objective Data Vital Signs Vital Signs: Vital Signs - 24 hr 05/25/23 08:55 05/25/23 10:00 05/25/23 10:00 Temperature 37.2 C Pulse Rate 59 L 62 62 Respiratory
[2023-05-26 08:46] LABS: Basophils Percent Auto 0.5 % (0.2-1.2); Eosinophils Absolute Auto 0.1 K/mm3 (0-0.3); Eosinophils Percent Auto 1.2 % (0-4.4); Hematocrit 39.4 % (37.0-47.0); Hemoglobin 12.8 g/dL (12.0-15.0); Immature Granulocyte Absolute 0.03 K/mm3 (0.00-0.031); Immature Granulocyte Percent A 0.3 % (0-0.5); Lymphocytes Absolute Auto 2.08 K/mm3 (0.9-3.2); Lymphocytes Percent Auto 23.5 % (18.3-44.2); Mean Corpuscular HGB Conc 32.5 g/dl (32-36); Mean Corpuscular Hemoglobin 35.3 pg (26-34); Mean Corpuscular Volume 108.5 fl (80-100); Mean Platelet Volume 9.7 fl (7.4-10.4); Monocytes Absolute Auto 1.1 K/mm3 (0.1-0.6); Monocytes Percent Auto 12.4 % (2.6-8.5); Neutrophils Absolute Auto 5.5 K/mm3 (1.3-6.7); Neutrophils Percent Auto 62.1 % (45.5-73.1); Platelet Count Result 313 k/mm3 (150-375); Red Blood Count 3.63 M/mm3 (4.2-5.4); Red Cell Distribution Width 13.4 % (11.5-14.5); White Blood Count 8.8 K/mm3 (4.5-10.0)
[2023-05-26 09:02] LABS: Acetaminophen < 10 ug/mL (10-30)
[2023-05-26 09:04] LABS: Alanine Aminotransferase 22 U/L (6-35); Albumin Level 3.2 g/dL (3.5-5.1); Alkaline Phosphatase 92 U/L (38-126); Anion Gap 7 mmol/L (8-16); Aspartate Amino Transferase 42 U/L (14-36); Bilirubin,Total 0.4 mg/dL (0.2-1.3); Blood Urea Nitrogen 7 mg/dL (7-17); Calcium 8.7 mg/dL (8.4-10.2); Carbon Dioxide 20 mmol/L (22-30); Chloride 111 mmol/L (98-107); Estimated CRCL calculation 124 ml/min; Estimated Glomerular Filt Rate > 60; Glucose 106 mg/dL (65-110); Potassium 3.6 mmol/L (3.4-5.0); Sodium 138 mmol/L (137-145)
[2023-05-26] MEDS: busPIRone HCL 10 MG, busPIRone HCL 5 MG 15 MG PO ×3 (09:47→21:19)
[2023-05-26] MEDS: VENLAFAXINE HCL XR 75 MG CAP.ER.24H PO (09:47)
[2023-05-26] MEDS: diazePAM (*CRX) 5 MG TABLET PO ×2 (09:47→17:10)
[2023-05-26] MEDS: MORPHINE SULFATE (*CRX) 2 MG/ML INJ IV PUSH ×2 (11:05→19:31)
[2023-05-26] MEDS: POTASSIUM BICARBONATE 25 MEQ TABEF 50 MEQ PO (11:16)
[2023-05-26 12:28] LABS: Glucose Point of Care 95 mg/dl (65-105)
--- NOTE | 2023-05-26 15:53 | PM.IMPN ---
Progress Note: A&P Assessment and Plan (1) Drug overdose: Code(s): T50.901A - Poisoning by unspecified drugs, medicaments and biological substances, accidental (unintentional), initial encounter Status: Acute Assessment and Plan: Patient told her mother that she would not see her again and later patient's mother found the patient unresponsive. EMS was called. It is reported with patient has 2 new prescriptions filled of Fioricet and [place]. Patient has a history of drug overdose in the past. Urine drug screen is positive for opiates and barbiturates. Acetaminophen level was 89. She was treated with acetylcysteine. Due to her agitation, Precedex was started. She remains on IV fluids due to poor oral intake. Wean Precedex as she tolerates. Follow (2) Suicide attempt: Code(s): T14.91XA - Suicide attempt, initial encounter Status: Acute Assessment and Plan: Patient with bipolar disorder and schizophrenia. She has a history of suicide attempt with drug overdose. She denies that she was suicidal or that she overdosed on mediations to end her life. She states she was 'only trying to get high'. Once patient is medically stable, she will need to be transferred to a psychiatric facility for further care. (3) Bipolar mood disorder: Code(s): F31.9 - Bipolar disorder, unspecified Status: Acute Assessment and Plan: Patient with bipolar disorder with psychotic features. She also has schizophrenia listed in her medical history. Buspirone and Effexor started. Scheduled Valium added to control agitation. Remove restraints when able. Plan for psychiatric placement when stable. (4) Hypokalemia: Code(s): E87.6 - Hypokalemia Status: Acute Assessment and Plan: Potassium dropped to 2.7 yesterday. Replacement ordered. Could be related to IV fluids. On chart review, it appears that she does have a history of intermittent hypokalemia. Not on diuretics or potassium at home. TSH and cortisol levels okay. Potassium 3.6 and replacement ordered. Mag 2.0 Follow and replace as needed (5) Substance use disorder: Code(s): F19.90 - Other psychoactive substance use, unspecified, uncomplicated Status: Acute Assessment and Plan: Patient has a history of substance abuse. No evidence of withdrawal symptoms. Continue to monitor closely. (6) COPD (chronic obstructive pulmonary disease): Code(s): J44.9 - Chronic obstructive pulmonary disease, unspecified Status: Acute Assessment and Plan: Patient has a history of COPD. She is not on any inhalers listed. No active wheezing. She remains on room air. Continue to follow. (7) Hepatitis C: Code(s): B19.20 - Unspecified viral hepatitis C without hepatic coma Status: Acute Assessment and Plan: Patient has positive hepatitis C panel 1 year ago. Unclear if she has been treated. (8) Urinary tract infection, site not specified: Code(s): N39.0 - Urinary tract infection, site not specified Status: Acute Assessment and Plan: UA noted and concerning for UTI. Rocephin started 05/24. Had fever yesterday but resolved. WBC was 12K but now normal. Urine cx growing EColi. Prior infections showing sensitive to Rocephin, Continue Rocephin Follow up on UCx results. Plan Macrocytosis -patient has a chronic macrocytosis. B12 level normal. Abd US showing no liver nodularity of splenomegaly. Could be related to underlying liver disease given her hepatitis C or underlying BM disease. Hydronephrosis - moderate right and mild left hydronephrosis. Possibly related to her medications (benztropine, desipramine, chlorpromazine, cyclobenzaprine, Zofran). Check CT to assess urinary anatomy and if hydronephrosis has resolved with Rich. DVT prophylaxis -SCDs Code status -full Gastric prophylaxis -not required Subjective Date/time seen: 05/26/23 15:53 Interval
[2023-05-26 17:53] LABS: Glucose Point of Care 103 mg/dl (65-105)
[2023-05-27] VITALS (12 sets, daily range): BP systolic 116–144; BP diastolic 74–99; PULSE 74–163; RESP 12–25; TEMP 36.6–37.5; O2SAT 98–100; BMI 27.4
--- NOTE | 2023-05-27 | ECHO_ITS ---
Patient Info Name: Mahnaz Oseguera Age: 57 years : 1965 Gender: Female Ht: 64 in Wt: 159 lbs BSA: 1.82 m2 HR: 125 bpm BP: 144 / 99 mmHg Heart Rhythm: Tachycardia Technical Quality: Fair Exam Date: 05/27/2023 3:21 PM Exam Location: [facility] Pulmonary Exam Room: ICU7 Patient Status: Inpatient Admit Date: 05/25/2023 Staff Ordering Physician: Billy Mejias MD Surgical Instrument Repair Specialist: Fartun Mullins RDCS Attending Provider: Brenda Phillip MD Exam Type: CA echo doppler color flow Study Info Indications - AFLUTTER SVT Complete two-dimensional, color flow and Doppler transthoracic echocardiogram is performed. Summary 1. Complete two-dimensional, color flow and Doppler transthoracic echocardiogram is performed. 2. Left ventricular chamber dimension is normal. 3. Left ventricular systolic function is normal, estimated at 60-65%. 4. Right ventricular systolic function is normal. 5. There is mild tricuspid valve regurgitation. 6. There is small anterior pericardial effusion. Left Ventricle Left ventricular chamber dimension is normal. Left ventricular systolic function is normal, estimated at 60-65%. There is no increased left ventricular wall thickness. Right Ventricle Right ventricular chamber dimension is normal. Right ventricular systolic function is normal. Left Atria Left atrial chamber dimension is normal. Right Atria Right atrial chamber dimension is normal. Atrial Septum Intact interatrial septum visualized by color flow imaging. Aortic Valve The aortic valve is probable trileaflet. There is no aortic valve stenosis. There is trace aortic valve regurgitation. Pulmonic Valve The pulmonic valve is not well visualized. Mitral Valve There is trace mitral valve regurgitation. Tricuspid Valve There is mild tricuspid valve regurgitation. Pericardium/Pleural There is small anterior pericardial effusion. Inferior Vena Cava Normal inferior vena cava with >50% collapse upon inspiration consistent with normal right atrial pressure, 3 mmHg. Aorta The aortic root size at the sinus of Valsalva is normal. Left Ventricular Outflow Tract Name Value Normal LVOT 2D LVOT Diameter 2.0 cm LVOT Doppler LVOT Peak Gradient 4 mmHg LVOT Mean Gradient 3 mmHg LVOT VTI 14 cm LVOT VTI/AV VTI Ratio 0.7 LVOT Stroke Volume 44 ml LVOT CO 14.6 l/min LVOT CI 8.0 l/min/m2 Pulmonic Valve Name Value Normal RVOT Doppler RVOT Peak Gradient 3 mmHg PV Doppler PV Peak Gradient 3 mmHg Mitral Valve Name Value Normal
[2023-05-27] MEDS: LORazepam INJ (*CRX) 2 MG/ML VIAL 1 MG IV PUSH ×3 (02:17→21:06)
[2023-05-27 04:35] LABS: Hematocrit 41.5 % (37.0-47.0); Hemoglobin 13.9 g/dL (12.0-15.0); Mean Corpuscular HGB Conc 33.5 g/dl (32-36); Mean Corpuscular Hemoglobin 35.1 pg (26-34); Mean Corpuscular Volume 104.8 fl (80-100); Mean Platelet Volume 9.5 fl (7.4-10.4); Platelet Count Result 364 k/mm3 (150-375); Red Blood Count 3.96 M/mm3 (4.2-5.4); Red Cell Distribution Width 13.2 % (11.5-14.5); White Blood Count 11.8 K/mm3 (4.5-10.0)
[2023-05-27 04:46] LABS: Alanine Aminotransferase 28 U/L (6-35); Alkaline Phosphatase 122 U/L (38-126); Anion Gap 9 mmol/L (8-16); Aspartate Amino Transferase 56 U/L (14-36); Bilirubin,Total 0.7 mg/dL (0.2-1.3); Blood Urea Nitrogen 6 mg/dL (7-17); Calcium 9.1 mg/dL (8.4-10.2); Carbon Dioxide 26 mmol/L (22-30); Chloride 102 mmol/L (98-107); Estimated CRCL calculation 124 ml/min; Estimated Glomerular Filt Rate > 60; Glucose 86 mg/dL (65-110); Magnesium 1.8 mg/dL (1.6-2.3); Potassium 3.3 mmol/L (3.4-5.0); Sodium 137 mmol/L (137-145)
[2023-05-27] MEDS: busPIRone HCL 10 MG, busPIRone HCL 5 MG 15 MG PO ×3 (06:23→21:05)
[2023-05-27 07:25] LABS: Glucose Point of Care 83 mg/dl (65-105)
[2023-05-27] MEDS: diazePAM (*CRX) 5 MG TABLET PO ×2 (09:22→16:08)
[2023-05-27] MEDS: POTASSIUM CHLORIDE 20 MEQ ER TABLET 40 MEQ PO (09:23)
[2023-05-27] MEDS: VENLAFAXINE HCL XR 75 MG CAP.ER.24H PO (09:23)
--- NOTE | 2023-05-27 12:35 | PC.NURSE ---
Dr. Mejias to bedside. Patient tachycardic. Stat EKG ordered and completed. Vitals recorded.
[2023-05-27 12:48] LABS: Glucose Point of Care 94 mg/dl (65-105)
--- NOTE | 2023-05-27 12:48 | ECG_ITS ---
Measurements Intervals [place] Rate: 162 P: AR: 0 QRS: 27 QRSD: 102 T: 19 QT: 275 QTc: 452 Interpretive Statements SUPRAVENTRICULAR TACHYCARDIA ABNORMAL ECG COMPARED TO ECG 05/24/2023 18:30:59 SUPRAVENTRICULAR TACHYCARDIA NOW PRESENT Electronically Signed On 05-27-2023 14:37:50 CDT by Tony Chen D.O.
--- NOTE | 2023-05-27 13:17 | PM.IMPN ---
Progress Note: A&P Assessment and Plan (1) Atrial tachycardia: Code(s): I47.1 - Supraventricular tachycardia Status: Acute Assessment and Plan: Patient was taken off telemetry yesterday. On exam today, patient noted to have tachycardia. EKG performed showing SVT versus a flutter with a rate of 162. She has a history of atrial tachycardia an EKG today appears similar to prior EKGs. Majority of her home medications had been held because of for overdose of unknown medications. TSH normal. Potassium was low and this was replaced. Mag 1.8 so will replace. Will give her metoprolol IV 5 mg once. Resume her oral metoprolol. Check echocardiogram. Place back on telemetry. (2) Drug overdose: Code(s): T50.901A - Poisoning by unspecified drugs, medicaments and biological substances, accidental (unintentional), initial encounter Status: Acute Assessment and Plan: Patient told her mother that she would not see her again and later patient's mother found the patient unresponsive. EMS was called. It is reported with patient has 2 new prescriptions filled of Fioricet and [place]. Patient has a history of drug overdose in the past. Urine drug screen is positive for opiates and barbiturates. Acetaminophen level was 89. She was treated with acetylcysteine. Due to her agitation, Precedex was started. She was weaned off Precedex. Medications adjusted. She remains stable Follow (3) Suicide attempt: Code(s): T14.91XA - Suicide attempt, initial encounter Status: Acute Assessment and Plan: Patient with bipolar disorder and schizophrenia. She has a history of suicide attempt with drug overdose. She denies that she was suicidal or that she overdosed on mediations to end her life. She states she was 'only trying to get high'. Once patient is medically stable, she will need to be transferred to a psychiatric facility for further care. (4) Bipolar mood disorder: Code(s): F31.9 - Bipolar disorder, unspecified Status: Acute Assessment and Plan: Patient with bipolar disorder with psychotic features. She also has schizophrenia listed in her medical history. Buspirone and Effexor restarted. Scheduled Valium added to control agitation. Plan for psychiatric placement when stable. (5) Hypokalemia: Code(s): E87.6 - Hypokalemia Status: Acute Assessment and Plan: Potassium dropped to 2.7 and replacement ordered. Could be related to IV fluids. On chart review, it appears that she does have a history of intermittent hypokalemia. Not on diuretics or potassium at home. TSH and cortisol levels okay. Potassium 3.3 and replacement ordered. Mag 1.8 and replacement ordered as well Follow and replace as needed (6) Substance use disorder: Code(s): F19.90 - Other psychoactive substance use, unspecified, uncomplicated Status: Acute Assessment and Plan: Patient has a history of substance abuse. No evidence of withdrawal symptoms. Continue to monitor closely. (7) COPD (chronic obstructive pulmonary disease): Code(s): J44.9 - Chronic obstructive pulmonary disease, unspecified Status: Acute Assessment and Plan: Patient has a history of COPD. She is not on any inhalers listed. No active wheezing. She remains on room air. Continue to follow. (8) Hepatitis C: Code(s): B19.20 - Unspecified viral hepatitis C without hepatic coma Status: Acute Assessment and Plan: Patient has positive hepatitis C panel 1 year ago. Unclear if she has been treated. (9) Urinary tract infection, site not specified: Code(s): N39.0 - Urinary tract infection, site not specified Status: Acute Assessment and Plan: UA noted and concerning for UTI. Rocephin started 05/24. Urine cx growing EColi sensitive to Rocephin. Continue Rocephin Plan Macrocytosis -patient has a chronic macrocytosis. B12 level normal.
[2023-05-27] MEDS: METOPROLOL TARTRATE INJ 5 MG/5 ML VIAL IV PUSH (13:38)
[2023-05-27] MEDS: METOPROLOL TARTRATE 25 MG TABLET PO ×2 (13:43→20:09)
[2023-05-27] MEDS: MAGNESIUM SULF 2 GM/WATER 50ML 2 GM/50 ML BAG IVPB (13:45)
[2023-05-27 15:31] LABS: Beta HCG Quantitative < 2.39 mIU/ML
--- NOTE | 2023-05-27 16:01 | WPDURCON ---
Assessment and Plan Assessment and plan (1) Urinary tract infection, site not specified: Code(s): N39.0 - Urinary tract infection, site not specified Status: Acute Assessment and Plan: Continue to treat with IV antibiotics. Chronic infections are possibly related to bilateral hydro or dehydration. Will get a Renal Lasix Scan to further evaluate hydronephrosis. Patient should have an outpatient cystoscopy at some point. (2) Hydronephrosis: Code(s): N13.30 - Unspecified hydronephrosis Status: Acute Assessment and Plan: No obstruction noted on CT. Will get a renal lasix scan to further evaluate. Creatinine is stable. Ok to remove Hassan at any time and do a voiding trial when no longer needed for I&O's. Urology Consult Note HPI Date Seen: 05/27/23 Time Seen: 09:00 Requesting Physician: rBenda Phillip MD Primary Care Provider: Neil Barbour, Consult Narrative Reason for consult: Bilateral Hydronephrosis Narrative: Mahnaz Oseguera is a 57 year old female who presented to the ER s/p a possible drug overdose. She was found at home by her mother after telling her mother, She wouldn't see her again. She was lethargic and not well responsive at the time. She has a history of suicide attempt and drug overdose. She had an Acetaminophen reading of 89 upon arrival. She has a WBC of 11.8, creatinine of 0.40, UA is positive for a UTI as well as her urine culture from 05/24/23 which grew E-Coli. She has chronic UTI's. Her cultures on 03/27/23, 03/02/23 and 09/22/22 all grew E-Coli as well at [place]. She states she doesn't drink water and only drinks tea and soda. She had a CT scan on 05/27/23 showing moderate right and mild left hydronephrosis without obstruction and a hassan catheter the is in the bladder with bladder decompressed. She normally has no problems with urination. She denies a history of kidney stones or procedures for her urinary tract. Her mother is currently on dialysis and she doesn't want to be on dialysis. Review of Systems Cardiovascular: Cardiovascular: Denies chest pain Respiratory: Respiratory: Reports no additional respiratory complaints Gastrointestinal: Gastrointestinal: Denies abdominal pain, Denies nausea and Denies vomiting Genitourinary: Genitourinary: Denies hematuria, Denies nocturia, Denies dysuria, Denies pelvic pain, Denies flank pain, Denies urinary incontinence, Denies urinary hesitancy and Denies urinary urgency PMF Past Medical History Medical History Ankle fracture, lateral malleolus, closed December 2022 Anxiety Back pain Bipolar mood disorder Carpal tunnel syndrome COPD (chronic obstructive pulmonary disease) Distal radial fracture December 2022 Drug overdose Migraine Overdose of lithium or lithium compound Schizophrenia Seizure Suicide attempt Surgical History Surgical History H/O dilation and curettage H/O foot surgery 2021 X2 H/O tubal ligation H/O: hysterectomy 2000 History of back surgery 1999 History of tonsillectomy Family History Family History Father Alcoholism Grandparent Diabetes mellitus Hypertension Heart disease Mother Kidney disease Grandparent Alcoholism Social History Social History Social History: The patient is noted to be single and disabled. Her mother is listed as a durable power of securities attorney for healthcare. She is listed as a full code. Smoking packs per day: 1.5 Smoking cigarettes per day: 30.0 Years smoked: 47 Smoking pack-years: 70.50 Smoking status: Unknown if ever smoked Second hand tobacco smoke exposure: No Alcohol intake: unknown Substance use: unknown Substance use type: painkillers and prescription drug Other substance usage details: some
[2023-05-27] MEDS: oxyCODONE HCL (*CRX) 5 MG TAB IR PO (16:07)
[2023-05-27] MEDS: ENOXAPARIN 40 MG/0.4 ML SYRINGE SUB-Q (16:10)
[2023-05-27] MEDS: FUROSEMIDE INJ 40 MG/4 ML VIAL IV PUSH (16:11)
[2023-05-27] MEDS: MORPHINE SULFATE (*CRX) 2 MG/ML INJ IV PUSH ×2 (18:59)
[2023-05-27 20:23] LABS: Glucose Point of Care 159 mg/dl (65-105)
--- NOTE | 2023-05-27 21:23 | PC.NURSE ---
hassan pulled pt up to restroom x sba, partial sponge bath done per pt, up and void and had bm
--- NOTE | 2023-05-27 23:09 | PC.NURSE ---
pt resting in bed at this time.
[2023-05-28] VITALS (11 sets, daily range): BP systolic 106–128; BP diastolic 81–94; PULSE 80–135; RESP 14–21; TEMP 36.4–37.4; O2SAT 98–100
[2023-05-28] MEDS: MORPHINE SULFATE (*CRX) 2 MG/ML INJ IV PUSH ×4 (00:42→17:57)
[2023-05-28] MEDS: oxyCODONE HCL (*CRX) 5 MG TAB IR PO ×3 (03:21→20:23)
[2023-05-28 04:39] LABS: Hematocrit 44.8 % (37.0-47.0); Hemoglobin 14.9 g/dL (12.0-15.0); Mean Corpuscular HGB Conc 33.3 g/dl (32-36); Mean Corpuscular Hemoglobin 34.6 pg (26-34); Mean Corpuscular Volume 103.9 fl (80-100); Mean Platelet Volume 9.4 fl (7.4-10.4); Platelet Count Result 360 k/mm3 (150-375); Red Blood Count 4.31 M/mm3 (4.2-5.4); Red Cell Distribution Width 13.2 % (11.5-14.5); White Blood Count 10.3 K/mm3 (4.5-10.0)
[2023-05-28 04:50] LABS: Alanine Aminotransferase 36 U/L (6-35); Albumin Level 3.9 g/dL (3.5-5.1); Alkaline Phosphatase 123 U/L (38-126); Anion Gap 7 mmol/L (8-16); Aspartate Amino Transferase 69 U/L (14-36); Bilirubin,Total 0.6 mg/dL (0.2-1.3); Blood Urea Nitrogen 9 mg/dL (7-17); Calcium 9.1 mg/dL (8.4-10.2); Carbon Dioxide 32 mmol/L (22-30); Chloride 97 mmol/L (98-107); Estimated CRCL calculation 110 ml/min; Estimated Glomerular Filt Rate > 60; Glucose 103 mg/dL (65-110); Magnesium 2.1 mg/dL (1.6-2.3); Potassium 3.4 mmol/L (3.4-5.0); Sodium 136 mmol/L (137-145)
[2023-05-28] MEDS: busPIRone HCL 10 MG, busPIRone HCL 5 MG 15 MG PO ×3 (05:41→22:26)
[2023-05-28] MEDS: LORazepam INJ (*CRX) 2 MG/ML VIAL 1 MG IV PUSH (06:55)
[2023-05-28] MEDS: ENOXAPARIN 40 MG/0.4 ML SYRINGE SUB-Q (08:22)
[2023-05-28] MEDS: VENLAFAXINE HCL XR 75 MG CAP.ER.24H PO (08:22)
[2023-05-28] MEDS: diazePAM (*CRX) 5 MG TABLET PO ×2 (08:22→17:10)
[2023-05-28] MEDS: METOPROLOL TARTRATE 25 MG TABLET PO ×2 (08:23→20:23)
[2023-05-28] MEDS: FUROSEMIDE INJ 40 MG/4 ML VIAL (13:05)
[2023-05-28] MEDS: METOPROLOL TARTRATE INJ 5 MG/5 ML VIAL IV PUSH ×2 (15:29→18:26)
--- NOTE | 2023-05-28 16:24 | WPDCNPSYCH ---
HPI Data of Consult Date/Time: 05/28/23 16:24 Requesting Physician: Brenda Phillip MD Primary Care Provider: Neil Barbour, Consult Narrative Narrative: Mahnaz Oseguera is a 57 year old female who psychiatric consult was called for an overdose on narcotics on 05/25/2023. She is on Valium, BuSpar, morphine and oxycodone. She is on the opiates due to chronic back pain. The patient has been com generally speaking according to the nurse's report. The patient is in need of discharge to an inpatient psychiatric service because of the overdose. However,I have not had a report called to me from Dr. Edmundo Mejias. After discussing the situation with the patient's nurse, I informed the nurse that I would not be conducting a full formal psychiatric consult because it is not likely to change the patient's treatment plan in that she will need to be transferred to an inpatient psychiatric [facility]. The patient does not seem to be having any behavioral manifestations nor any psychotic symptoms that would require an inpatient psychiatric consult at this time. With that being said, please re-consult me if a formal full consult as still preferred and then please call me report thank you very much for considering me to serve in consultation in service of this patient's best interest. [facility] Past Medical History Medical History Ankle fracture, lateral malleolus, closed December 2022 Anxiety Back pain Bipolar mood disorder Carpal tunnel syndrome COPD (chronic obstructive pulmonary disease) Distal radial fracture December 2022 Drug overdose Migraine Overdose of lithium or lithium compound Schizophrenia Seizure Suicide attempt Surgical History Surgical History H/O dilation and curettage H/O foot surgery 2021 X2 H/O tubal ligation H/O: hysterectomy 2000 History of back surgery 1999 History of tonsillectomy Family History Family History Father Alcoholism Grandparent Diabetes mellitus Hypertension Heart disease Mother Kidney disease Grandparent Alcoholism Social History Social History Social History: The patient is noted to be single and disabled. Her mother is listed as a durable power of title attorney for healthcare. She is listed as a full code. Smoking packs per day: 1.5 Smoking cigarettes per day: 30.0 Years smoked: 47 Smoking pack-years: 70.50 Smoking status: Unknown if ever smoked Second hand tobacco smoke exposure: No Alcohol intake: unknown Substance use: unknown Substance use type: painkillers and prescription drug Other substance usage details: something for headaches Last use: 03/25/23 Lack of Transportation: No Lack of Food: Never True Current Housing: I Have Housing Concerned About Future Housing: YES Difficulty Paying Gas/Electric Bills: No Difficulty Paying for Meds: No Currently Unemployed: No Education: Grade School Difficulty w/ Childcare or Family Care: No Living arrangements: with family Occupation/Education: unemployed Spiritual care concerns: No Meds Home Medications and Allergies Home Medications Medication Instructions Recorded Confirmed Type benztropine 2 mg tablet 0.5 mg PO Q8H PRN involuntary 04/18/22 05/25/23 History movement zsmssbbyed-aljosluvaqiub-vlngqjzn 1 tablet PO Q8H PRN Headache 04/18/22 05/25/23 History 50 mg-325 mg-40 mg tablet prazosin 5 mg capsule 1 mg PO HS 04/18/22 05/25/23 History cyclobenzaprine 10 mg tablet 10 mg PO QHS 11/22/22 05/25/23 History desipramine 150 mg tablet 150 mg PO QHS 11/22/22 05/25/23 History ondansetron HCl 4 mg tablet 4 mg PO Q8H 11/22/22 05/25/23 History chlorpromazine 100 mg tablet 50 mg PO Q12H 03/27/23 05/25/23 History buspirone 15 mg tablet 15 mg
--- NOTE | 2023-05-28 17:56 | PM.IMPN ---
Progress Note: A&P Assessment and Plan (1) Atrial tachycardia: Code(s): I47.1 - Supraventricular tachycardia Status: Acute Assessment and Plan: Patient was taken off telemetry but noted to have tachycardia yesterday. EKG performed showing SVT versus Aflutter with a rate of 162. She has a history of atrial tachycardia and EKG appeared similar to prior EKGs. Majority of her home medications had been held because of her overdose of unknown medications. TSH normal. Metoprolol IV once given and she was strated back on her oral metoprolol. She converted to NSR yesterday Potassium 3.4 so this was replaced. Mag 2.1. Awaiting Echo. 3PM - [facility] BP okay so metoprolol IV repeated. Echo - EF 60-65%, mild TR and small pericardial effusion. 6PM: HR slowed but did not convert. Repeat metoprolol (2) Drug overdose: Code(s): T50.901A - Poisoning by unspecified drugs, medicaments and biological substances, accidental (unintentional), initial encounter Status: Acute Assessment and Plan: Patient told her mother that she would not see her again and later patient's mother found the patient unresponsive. EMS was called. It is reported with patient has 2 new prescriptions filled of Fioricet and [place]. Patient has a history of drug overdose in the past. Urine drug screen is positive for opiates and barbiturates. Acetaminophen level was 89. She was treated with acetylcysteine. Due to her agitation, Precedex was started. She has been weaned off Precedex. Medications adjusted. She remains stable Follow. (3) Suicide attempt: Code(s): T14.91XA - Suicide attempt, initial encounter Status: Acute Assessment and Plan: Patient with bipolar disorder and schizophrenia. She has a history of suicide attempt with drug overdose. She denies that she was suicidal or that she overdosed on mediations to end her life. She states she was 'only trying to get high'. Once patient is medically stable, she will need to be transferred to a psychiatric facility for further care. Spoke with psychiatry and the consult can be cancelled since the plan is for npatient psychiatric care. (4) Bipolar mood disorder: Code(s): F31.9 - Bipolar disorder, unspecified Status: Acute Assessment and Plan: Patient with bipolar disorder with psychotic features. She also has schizophrenia listed in her medical history. Buspirone and Effexor restarted. Scheduled Valium added to control agitation. Plan for psychiatric placement when stable. (5) Hypokalemia: Code(s): E87.6 - Hypokalemia Status: Acute Assessment and Plan: Potassium dropped to 2.7 and replacement ordered. Could be related to IV fluids. On chart review, it appears that she does have a history of intermittent hypokalemia. Not on diuretics or potassium at home. TSH and cortisol levels okay. As above (6) Substance use disorder: Code(s): F19.90 - Other psychoactive substance use, unspecified, uncomplicated Status: Acute Assessment and Plan: Patient has a history of substance abuse. No evidence of withdrawal symptoms. Continue to monitor closely. (7) COPD (chronic obstructive pulmonary disease): Code(s): J44.9 - Chronic obstructive pulmonary disease, unspecified Status: Acute Assessment and Plan: Patient has a history of COPD. She is not on any inhalers listed. No active wheezing. She remains on room air. Continue to follow. (8) Hepatitis C: Code(s): B19.20 - Unspecified viral hepatitis C without hepatic coma Status: Acute Assessment and Plan: Patient has positive hepatitis C panel 1 year ago. Unclear if she has been treated. (9) Urinary tract infection, site not specified: Code(s): N39.0 - Urinary tract infection, site not specified Status: Acute Assessment and Plan: UA noted and concerning for UTI. R
[2023-05-28] MEDS: POTASSIUM CHLORIDE 20 MEQ ER TABLET 40 MEQ PO (18:26)
[2023-05-29] VITALS (56 sets, daily range): BP systolic 125–146; BP diastolic 87–129; PULSE 72–102; RESP 16–18; TEMP 36.8–37; O2SAT 95–100
[2023-05-29] MEDS: oxyCODONE HCL (*CRX) 5 MG TAB IR PO ×3 (02:02→15:17)
[2023-05-29 04:40] LABS: Hematocrit 46.3 % (37.0-47.0); Hemoglobin 15.8 g/dL (12.0-15.0); Mean Corpuscular HGB Conc 34.1 g/dl (32-36); Mean Corpuscular Volume 102.4 fl (80-100); Mean Platelet Volume 9.3 fl (7.4-10.4); Platelet Count Result 409 k/mm3 (150-375); Red Blood Count 4.52 M/mm3 (4.2-5.4); Red Cell Distribution Width 13.1 % (11.5-14.5); White Blood Count 11.3 K/mm3 (4.5-10.0)
[2023-05-29 04:52] LABS: Alanine Aminotransferase 36 U/L (6-35); Albumin Level 4.1 g/dL (3.5-5.1); Alkaline Phosphatase 119 U/L (38-126); Anion Gap 5 mmol/L (8-16); Aspartate Amino Transferase 49 U/L (14-36); Bilirubin,Total 0.6 mg/dL (0.2-1.3); Blood Urea Nitrogen 11 mg/dL (7-17); Calcium 9.3 mg/dL (8.4-10.2); Carbon Dioxide 32 mmol/L (22-30); Chloride 99 mmol/L (98-107); Estimated CRCL calculation 140 ml/min; Estimated Glomerular Filt Rate > 60; Glucose 116 mg/dL (65-110); Magnesium 2.1 mg/dL (1.6-2.3); Potassium 3.7 mmol/L (3.4-5.0); Sodium 136 mmol/L (137-145)
[2023-05-29] MEDS: busPIRone HCL 10 MG, busPIRone HCL 5 MG 15 MG PO ×3 (05:04→21:03)
[2023-05-29] MEDS: MORPHINE SULFATE (*CRX) 2 MG/ML INJ IV PUSH ×3 (05:04→18:55)
[2023-05-29] MEDS: ENOXAPARIN 40 MG/0.4 ML SYRINGE SUB-Q (08:02)
[2023-05-29] MEDS: diazePAM (*CRX) 5 MG TABLET PO ×2 (08:02→16:15)
[2023-05-29] MEDS: VENLAFAXINE HCL XR 75 MG CAP.ER.24H PO (08:02)
[2023-05-29] MEDS: METOPROLOL TARTRATE 25 MG TABLET PO ×2 (08:02→21:03)
--- NOTE | 2023-05-29 08:28 | PM.IMPN ---
Progress Note: A&P Assessment and Plan (1) Atrial tachycardia: Code(s): I47.1 - Supraventricular tachycardia Status: Acute Assessment and Plan: Patient was taken off telemetry but noted to have tachycardia yesterday. EKG performed showing SVT versus Aflutter with a rate of 162. She has a history of atrial tachycardia and EKG appeared similar to prior EKGs. Majority of her home medications had been held because of her overdose of unknown medications. TSH normal. Metoprolol IV once given and she was started back on her oral metoprolol. She converted to NSR. Potassium 3.4 so this was replaced. Mag 2.1. 3PM: Called by RN for patient again in [facility]. BP okay so metoprolol IV repeated. Echo - EF 60-65%, mild TR and small pericardial effusion. 6PM: HR slowed but did not convert. Repeat metoprolol 05/29: NSR most of today (2) Drug overdose: Code(s): T50.901A - Poisoning by unspecified drugs, medicaments and biological substances, accidental (unintentional), initial encounter Status: Acute Assessment and Plan: Patient told her mother that she would not see her again and later patient's mother found the patient unresponsive. EMS was called. It is reported with patient has 2 new prescriptions filled of Fioricet and [place]. Patient has a history of drug overdose in the past. Urine drug screen is positive for opiates and barbiturates. Acetaminophen level was 89. She was treated with acetylcysteine. Due to her agitation, Precedex was started. She has been weaned off Precedex. Medications adjusted. She remains stable Follow. (3) Suicide attempt: Code(s): T14.91XA - Suicide attempt, initial encounter Status: Acute Assessment and Plan: Patient with bipolar disorder and schizophrenia. She has a history of suicide attempt with drug overdose. She denies that she was suicidal or that she overdosed on mediations to end her life. She states she was 'only trying to get high'. Once patient is medically stable, she will need to be transferred to a psychiatric facility for further care. Spoke with psychiatry and the consult can be cancelled since the plan is for inpatient psychiatric care. (4) Bipolar mood disorder: Code(s): F31.9 - Bipolar disorder, unspecified Status: Acute Assessment and Plan: Patient with bipolar disorder with psychotic features. She also has schizophrenia listed in her medical history. Buspirone and Effexor restarted. Scheduled Valium added to control agitation. Plan for psychiatric placement when stable. (5) Hypokalemia: Code(s): E87.6 - Hypokalemia Status: Acute Assessment and Plan: Potassium dropped to 2.7 and replacement ordered. Could be related to IV fluids. On chart review, it appears that she does have a history of intermittent hypokalemia. Not on diuretics or potassium at home. TSH and cortisol levels okay. As above (6) Substance use disorder: Code(s): F19.90 - Other psychoactive substance use, unspecified, uncomplicated Status: Acute Assessment and Plan: Patient has a history of substance abuse. No evidence of withdrawal symptoms. Continue to monitor closely. (7) COPD (chronic obstructive pulmonary disease): Code(s): J44.9 - Chronic obstructive pulmonary disease, unspecified Status: Acute Assessment and Plan: Patient has a history of COPD. She is not on any inhalers listed. No active wheezing. She remains on room air. Continue to follow. (8) Hepatitis C: Code(s): B19.20 - Unspecified viral hepatitis C without hepatic coma Status: Acute Assessment and Plan: Patient has positive hepatitis C panel 1 year ago. Unclear if she has been treated. (9) Urinary tract infection, site not specified: Code(s): N39.0 - Urinary tract infection, site not specified Status: Acute Assessment and Plan: UA noted and concerning for UTI. R
[2023-05-29] MEDS: LORazepam INJ (*CRX) 2 MG/ML VIAL 1 MG IV PUSH ×2 (11:36→21:10)
--- NOTE | 2023-05-29 15:16 | WPDUROPN2 ---
Progress Note: A&P Assessment and Plan (1) Urinary tract infection, site not specified: Code(s): N39.0 - Urinary tract infection, site not specified Status: Acute Assessment and Plan: Urine culture is positive growing E-Coli on 05/24/23 Ceftriaxone was given initially but has been d/c'd. She is no longer symptomatic. (2) Hydronephrosis: Code(s): N13.30 - Unspecified hydronephrosis Status: Acute Assessment and Plan: Bilateral noted on CT. Renal Lasix scan shows Right >Left obstruction. Discussed the need for a right stent placement with the patient and her mother today at the bedside and the possibility that this will help with chronic UTI's. Creatinine is 0.30. The patient agrees to proceed tomorrow: Cystoscopy, right stent placement, right retrograde pyelogram with Dr. Bloom. Keep NPO after midnight. Obtain Consent. Subjective Subjective Date/Time Seen: 05/29/23 15:16 Interval history: The patient is being followed for bilateral hydro found on CT scan this admission and chronic UTI's all growing E-Coli. She had a renal lasix scan on 05/27/23 to further evaluate the bilateral hydronephrosis without obstruction: 1.? Symmetric kidney function. 2.? Mildly delayed activity clearance from the left kidney consistent with low-grade obstruction of questionable clinical significance and more significantly delayed activity clearance from the right kidney consistent with high-grade obstruction. T 1/2 14 minute delay on the left and T 1/2 >22 minute delay on the right. The patient denies flank pain. Rich is out and she is urinating on her own. Review of Systems Cardiovascular: Cardiovascular: Denies chest pain Respiratory: Respiratory: Reports no additional respiratory complaints Gastrointestinal: Gastrointestinal: Denies abdominal pain, Denies nausea and Denies vomiting Genitourinary: Genitourinary: Denies hematuria, Denies nocturia, Denies dysuria, Denies pelvic pain, Denies flank pain, Denies urinary incontinence, Denies urinary hesitancy and Denies urinary urgency Exam Const: General: cooperative and comfortable Resp: Effort & Inspection: normal respiratory effort Cardio: Rate: regular rate GI: GI Palp: Yes Soft to palpation and No Tenderness to palpation present (GI) : General: Yes no CVA tenderness Extrem: Right lower extremity: no edema Left lower extremity: no edema Objective Data Vital Signs Vital Signs: Vital Signs - 24 hr 05/28/23 16:00 05/28/23 20:23 05/28/23 20:00 Temperature Pulse Rate 135 H 134 H 134 H Respiratory Rate Blood Pressure Pulse Oximetry Oxygen Delivery 05/28/23 20:00 05/28/23 20:00 05/28/23 22:00 Temperature 97.6 F Pulse Rate 134 H 134 H 124 H Respiratory Rate 21 H 20 18 Blood Pressure 106/83 Pulse Oximetry 98 Oxygen Delivery Room Air 05/29/23 00:00 05/29/23 04:00 05/29/23 07:59 Temperature 98.6 F Pulse Rate 84 78 99 Respiratory Rate 16 Blood Pressure 125/87 Pulse Oximetry 100 Oxygen Delivery 05/29/23 08:02 05/29/23 00:15 05/29/23 00:30 Temperature Pulse Rate 98 88 82 Respiratory Rate Blood Pressure Pulse Oximetry Oxygen Delivery 05/29/23 00:45 05/29/23 01:00 05/29/23 01:15 Temperature Pulse Rate 84 84 90 Respiratory Rate Blood Pressure Pulse Oximetry Oxygen Delivery 05/29/23 01:31 05/29/23 01:46 05/29/23 02:00 Temperature Pulse Rate 90 89 96 Respiratory Rate Blood Pressure Pulse Oximetry Oxygen Delivery 05/29/23 02:15 05/29/23 02:31 05/29/23 02:45 Temperature Pulse Rate 87 83 80 Respiratory Rate Blood Pressure Pulse Oximetry Oxygen Delivery 05/29/23 03:00 05/29/23 03:15 05/29/23 03:30 Temperature Pulse Rate 93 76 78 Respiratory Rate Blood Pressure Pulse Oximetry Oxygen Delivery 05/29/23 03:45 05/29/23 04:01 05/29/23 04:15 Temperature Pulse Rate 79 74 77 Respirat
[2023-05-30] VITALS (13 sets, daily range): BP systolic 125–164; BP diastolic 71–96; PULSE 81–111; RESP 12–20; TEMP 36.4–37; O2SAT 93–100
[2023-05-30] MEDS: oxyCODONE HCL (*CRX) 5 MG TAB IR PO ×2 (04:46→20:00)
[2023-05-30] MEDS: busPIRone HCL 10 MG, busPIRone HCL 5 MG 15 MG PO ×3 (04:46→20:01)
[2023-05-30 04:58] LABS: Basophils Absolute Auto 0.1 K/mm3 (0.0-0.1); Basophils Percent Auto 0.6 % (0.2-1.2); Eosinophils Absolute Auto 0.2 K/mm3 (0-0.3); Eosinophils Percent Auto 1.9 % (0-4.4); Hematocrit 44.3 % (37.0-47.0); Immature Granulocyte Absolute 0.03 K/mm3 (0.00-0.031); Immature Granulocyte Percent A 0.4 % (0-0.5); Lymphocytes Absolute Auto 2.64 K/mm3 (0.9-3.2); Mean Corpuscular HGB Conc 33.9 g/dl (32-36); Mean Corpuscular Volume 103.3 fl (80-100); Mean Platelet Volume 9.5 fl (7.4-10.4); Monocytes Percent Auto 11.4 % (2.6-8.5); Neutrophils Absolute Auto 4.7 K/mm3 (1.3-6.7); Neutrophils Percent Auto 54.7 % (45.5-73.1); Platelet Count Result 369 k/mm3 (150-375); Red Blood Count 4.29 M/mm3 (4.2-5.4); White Blood Count 8.5 K/mm3 (4.5-10.0)
[2023-05-30 05:41] LABS: Alanine Aminotransferase 34 U/L (6-35); Albumin Level 3.8 g/dL (3.5-5.1); Alkaline Phosphatase 109 U/L (38-126); Anion Gap 6 mmol/L (8-16); Aspartate Amino Transferase 43 U/L (14-36); Bilirubin,Total 0.8 mg/dL (0.2-1.3); Blood Urea Nitrogen 11 mg/dL (7-17); Calcium 9.3 mg/dL (8.4-10.2); Carbon Dioxide 32 mmol/L (22-30); Chloride 99 mmol/L (98-107); Estimated CRCL calculation 110 ml/min; Estimated Glomerular Filt Rate > 60; Glucose 111 mg/dL (65-110); Magnesium 1.9 mg/dL (1.6-2.3); Potassium 3.5 mmol/L (3.4-5.0); Sodium 137 mmol/L (137-145)
--- NOTE | 2023-05-30 07:18 | WPDHPUPDATE1 ---
History and Physical Update Update Date/Time: 05/30/23 07:18 History and Physical has been reviewed, including an updated exam of the patient. There are NO changes in the patient's condition. Risks, benefits, and alternatives have been discussed and questions answered. Patient agrees to proceed with procedure.
[2023-05-30] MEDS: VENLAFAXINE HCL XR 75 MG CAP.ER.24H PO (07:45)
[2023-05-30] MEDS: METOPROLOL TARTRATE 25 MG TABLET PO ×2 (07:46→20:00)
[2023-05-30] MEDS: diazePAM (*CRX) 5 MG TABLET PO ×2 (07:46→16:26)
--- NOTE | 2023-05-30 08:17 | PM.IMPN ---
Progress Note: A&P Assessment and Plan (1) Atrial tachycardia: Code(s): I47.1 - Supraventricular tachycardia Status: Acute Assessment and Plan: Patient was taken off telemetry but noted to have tachycardia yesterday. EKG performed showing SVT versus Aflutter with a rate of 162. She has a history of atrial tachycardia and EKG appeared similar to prior EKGs. Majority of her home medications had been held because of her overdose of unknown medications. TSH normal. Metoprolol IV once given and she was started back on her oral metoprolol. She converted to NSR. Potassium 3.4 so this was replaced. Mag 2.1. 3PM: Called by RN for patient again in [facility]. BP okay so metoprolol IV repeated. Echo - EF 60-65%, mild TR and small pericardial effusion. 6PM: HR slowed but did not convert. Repeat metoprolol 05/29: NSR most of today 05/30: NSR, stent placed by urology (2) Drug overdose: Code(s): T50.901A - Poisoning by unspecified drugs, medicaments and biological substances, accidental (unintentional), initial encounter Status: Acute Assessment and Plan: Patient told her mother that she would not see her again and later patient's mother found the patient unresponsive. EMS was called. It is reported with patient has 2 new prescriptions filled of Fioricet and [place]. Patient has a history of drug overdose in the past. Urine drug screen is positive for opiates and barbiturates. Acetaminophen level was 89. She was treated with acetylcysteine. Due to her agitation, Precedex was started. She has been weaned off Precedex. Medications adjusted. She remains stable Follow. (3) Suicide attempt: Code(s): T14.91XA - Suicide attempt, initial encounter Status: Acute Assessment and Plan: Patient with bipolar disorder and schizophrenia. She has a history of suicide attempt with drug overdose. She denies that she was suicidal or that she overdosed on medications to end her life. She states she was 'only trying to get high'. Once patient is medically stable, she will need to be transferred to a psychiatric facility for further care. Spoke with psychiatry and the consult can be cancelled since the plan is for inpatient psychiatric care. (4) Bipolar mood disorder: Code(s): F31.9 - Bipolar disorder, unspecified Status: Acute Assessment and Plan: Patient with bipolar disorder with psychotic features. She also has schizophrenia listed in her medical history. Buspirone and Effexor restarted. Scheduled Valium added to control agitation. Plan for psychiatric placement when stable. (5) Hypokalemia: Code(s): E87.6 - Hypokalemia Status: Acute Assessment and Plan: Potassium dropped to 2.7 and replacement ordered. Could be related to IV fluids. On chart review, it appears that she does have a history of intermittent hypokalemia. Not on diuretics or potassium at home. TSH and cortisol levels okay. As above (6) Substance use disorder: Code(s): F19.90 - Other psychoactive substance use, unspecified, uncomplicated Status: Acute Assessment and Plan: Patient has a history of substance abuse. No evidence of withdrawal symptoms. Continue to monitor closely. (7) COPD (chronic obstructive pulmonary disease): Code(s): J44.9 - Chronic obstructive pulmonary disease, unspecified Status: Acute Assessment and Plan: Patient has a history of COPD. She is not on any inhalers listed. No active wheezing. She remains on room air. Continue to follow. (8) Hepatitis C: Code(s): B19.20 - Unspecified viral hepatitis C without hepatic coma Status: Acute Assessment and Plan: Patient has positive hepatitis C panel 1 year ago. Unclear if she has been treated. (9) Urinary tract infection, site not specified: Code(s): N39.0 - Urinary tract infection, site not specified Status: Acute Assessment and Plan:
--- NOTE | 2023-05-30 08:59 | WPDANESEPPF ---
Anes - Initial Pre Proc Eval Procedure: Operation Date: 05/30/23 09:15 Proposed Procedures p Cystoscopy,Right Retrograde Pyelogram,Right Stent Placement - Efrain Bloom MD Date/Time: 05/30/23 08:59 Surgeon: Brenda Phillip MD Pre Op Diagnosis: overdose intentional Patient Data Age: 57 Gender: F Height: 1.63 m Weight: 66.5 kg Last Vital Signs Temp 98.6 F 05/30/23 07:31 Pulse 105 H 05/30/23 07:31 Resp 16 05/30/23 07:31 BP 125/89 05/30/23 07:31 Pulse Ox 98 05/30/23 07:31 O2 Del Method Room Air 05/29/23 20:00 Allergies Allergy/AdvReac Type Severity Reaction Status Date / Time grass pollen Allergy Intermediate Hives Verified 04/27/23 10:09 amoxicillin [From Augmentin] Allergy Hives Verified 05/27/23 09:01 asenapine [From Saphris] Allergy Hives Verified 04/27/23 10:09 bacitracin Allergy Rash Verified 04/27/23 10:09 [From Neosporin ([id number])] clavulanic acid Allergy Hives Verified 04/27/23 10:09 [From Augmentin] erythromycin base Allergy Hives Verified 04/27/23 10:09 haloperidol [From Haldol] Allergy Swelling Verified 04/27/23 10:09 of Lip/Tongue/Throat latex Allergy Rash Verified 04/27/23 10:09 neomycin Allergy Rash Verified 04/27/23 10:09 [From Neosporin ([id number])] olanzapine [From Zyprexa] Allergy Swelling Verified 04/27/23 10:09 of Lip/Tongue/Throat polymyxin B Allergy Rash Verified 04/27/23 10:09 [From Neosporin ([id number])] risperidone [From Risperdal] Allergy Hives Verified 04/27/23 10:09 tramadol [From Ultram] Allergy Rash Verified 04/27/23 10:09 ciprofloxacin AdvReac Vomiting Verified 04/27/23 10:09 ibuprofen AdvReac Vomiting Verified 04/27/23 10:09 Steriod AdvReac Agitated Uncoded 04/27/23 10:09 Home Medications Medication Instructions Recorded Confirmed Type benztropine 2 mg tablet 0.5 mg PO Q8H PRN involuntary 04/18/22 05/25/23 History movement [id number]-cjbfdtbnmaywn-dpmaegzn 1 tablet PO Q8H PRN Headache 04/18/22 05/25/23 History 50 mg-325 mg-40 mg tablet prazosin 5 mg capsule 1 mg PO HS 04/18/22 05/25/23 History cyclobenzaprine 10 mg tablet 10 mg PO QHS 11/22/22 05/25/23 History desipramine 150 mg tablet 150 mg PO QHS 11/22/22 05/25/23 History ondansetron HCl 4 mg tablet 4 mg PO Q8H 11/22/22 05/25/23 History chlorpromazine 100 mg tablet 50 mg PO Q12H 03/27/23 05/25/23 History buspirone 15 mg tablet 15 mg PO Q8H 03/28/23 05/25/23 History aspirin 81 mg tablet,delayed 81 mg PO QAM #30 tabs 03/29/23 05/25/23 Rx release metoprolol tartrate 25 mg tablet 25 mg PO Q12HR #60 tabs 03/29/23 05/25/23 Rx gabapentin 300 mg capsule 600 mg PO TID 05/25/23 05/25/23 History hydrocodone 7.5 mg-acetaminophen 1 tablet PO Q6H PRN Pain 05/25/23 05/25/23 History 325 mg tablet venlafaxine 75 mg capsule,extended 75 mg PO DAILY 05/25/23 05/25/23 History release 24 hr Laboratory Tests 05/30/23 04:42 WBC 8.5 K/mm3 (4.5-10.0) RBC 4.29 M/mm3 (4.2-5.4) Hgb 15.0 g/dL (12.0-15.0) Hct 44.3 % (37.0-47.0) MCV 103.3 H fl (80-100) MCH 35.0 H pg (26-34) MCHC 33.9 g/dl (32-36) RDW 13.0 % (11.5-14.5) Plt Count 369 k/mm3 (150-375) MPV 9.5 fl (7.4-10.4) Immature Gran % (Auto) 0.4 % (0-0.5) Neut % (Auto) 54.7 % (45.5-73.1) Lymph % (Auto) 31.0 % (18.3-44.2) [place] % (Auto) 11.4 H % (2.6-8.5) Eos % (Auto) 1.9 % (0-4.4) Baso % (Auto) 0.6 % (0.2-1.2) Lymph # (Auto) 2.64 K/mm3 (0.9-3.2) [place] # (Auto) 1.0 H K/mm3 (0.1-0.6) Eos # (Auto) 0.2 K/mm3 (0-0.3) Baso # (Auto) 0.1 K/mm3 (0.0-0.1) Abs Immat Gran (auto) 0.03 K/mm3 (0.00-0.031) Absolute Neuts (auto) 4.7 K/mm3 (1.3-6.7) Absolute Nucleated RBC 0.0 K/mm3 (0.0-0.012) Nucleated RBC % 0.0 % (0.0-0.2) Sodium 137 mmol/L (137-145) Potassium 3.5 mmol/L (3.4-5.0) Chloride 99 mmol/L (98-107) Car
[2023-05-30] MEDS: LACTATED RINGERS 1,000 ML 30 ML IV CONT (09:00)
--- NOTE | 2023-05-30 10:18 | P.OP_ITS ---
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 Cystoscopy is undertaken with a 19 F rigid cystoscope. Bladder neck and urethra endoscopically normal. Her bladder was endoscopically normal without mucosal hyperemia. There was no obvious intravesical to neoplasm or foreign bodies. Although she has bilateral orthotopic ureteral orifices her left ureteral orifice appears somewhat strictured. I 1st placed a 0.035 in glidewire in her right renal pelvis. Retrograde pyelography show possible filling defect in her right mid to distal ureter. The more proximal collecting system appeared normal. I dilated the distal ureter with an 8 F dilator and performed right ureteroscopy with a 7.5 F flexible ureteral scope. All calices were examined in found to be endoscopically normal as was the right renal pelvis. 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 This neoplasm terminates approximately 2-3 cm above the right ureteral orifice. I then obtained a new wire and ureteral scope. Performed left retrograde pyelography through a open- ended ureteral catheter and left ureteral re-endoscopy. The left collecting system and ureter appeared normal, with the exception of that stricture at the orifice that I dilated with an 8 F 10 F dilator. Given this patient's psychiatric instability and impending psychiatric evaluation I opted not to place ureteral stents at this point. Scopes and wires removed she was taken recovery room good condition. Should also be noted that she has a normal serum creatinine and no complaints of flank pain. Urine Output 900
[2023-05-30] MEDS: fentaNYL CITRATE INJ (*CRX) 100 MCG/2 ML VIAL 25 MCG IV PUSH ×2 (10:35→10:49)
[2023-05-30] MEDS: MORPHINE SULFATE (*CRX) 2 MG/ML INJ IV PUSH ×3 (11:38→23:51)
[2023-05-30] MEDS: LORazepam INJ (*CRX) 2 MG/ML VIAL 1 MG IV PUSH (12:54)
--- NOTE | 2023-05-30 14:05 | PC.NURSE ---
Pt recieved from hospital stand point that pt is medically cleared for crisis if ok with uroligy. Notified Dr. Bloom, urologist, via phone and he meidically cleared pt too, notified continuous pillowcase cutter to call Crisis and told pt.
[2023-05-30 15:55] LABS: SARS-CoV-2 RNA PCR Negative (Negative)
--- NOTE | 2023-05-30 21:59 | PC.NURSE ---
[facility] called at [phone] inquiring about patient needing transfer to their facility. Stated that they had over 200 pages faxed to them and they only received 20 of those pages. They are still missing the following and are requesting them as soon as possible to proceed with transferring patient: Medical Clearance Form from MD Current set of vital signs (last blood pressure was elevated) Poison control number They do not see where patient was medically cleared by poison control Missing page 1 of the involuntary paperwork No nurses notes or doctors notes from this admission Will pass along to day shift RN and storage center manager to obtain this information 05/31/23 and continue to monitor.
[2023-05-31] MEDS: oxyCODONE HCL (*CRX) 5 MG TAB IR PO ×2 (04:38→08:45)
[2023-05-31] MEDS: busPIRone HCL 10 MG, busPIRone HCL 5 MG 15 MG PO (04:38)
[2023-05-31 04:56] LABS: Basophils Absolute Auto 0.1 K/mm3 (0.0-0.1); Basophils Percent Auto 0.5 % (0.2-1.2); Eosinophils Absolute Auto 0.1 K/mm3 (0-0.3); Eosinophils Percent Auto 0.8 % (0-4.4); Hematocrit 43.9 % (37.0-47.0); Hemoglobin 14.3 g/dL (12.0-15.0); Immature Granulocyte Absolute 0.04 K/mm3 (0.00-0.031); Immature Granulocyte Percent A 0.4 % (0-0.5); Lymphocytes Absolute Auto 2.83 K/mm3 (0.9-3.2); Lymphocytes Percent Auto 26.9 % (18.3-44.2); Mean Corpuscular HGB Conc 32.6 g/dl (32-36); Mean Corpuscular Hemoglobin 34.5 pg (26-34); Mean Corpuscular Volume 105.8 fl (80-100); Mean Platelet Volume 9.8 fl (7.4-10.4); Monocytes Absolute Auto 1.2 K/mm3 (0.1-0.6); Monocytes Percent Auto 10.9 % (2.6-8.5); Neutrophils Absolute Auto 6.4 K/mm3 (1.3-6.7); Neutrophils Percent Auto 60.5 % (45.5-73.1); Platelet Count Result 368 k/mm3 (150-375); Red Blood Count 4.15 M/mm3 (4.2-5.4); Red Cell Distribution Width 13.2 % (11.5-14.5); White Blood Count 10.5 K/mm3 (4.5-10.0)
[2023-05-31 05:10] LABS: Alanine Aminotransferase 40 U/L (6-35); Albumin Level 3.9 g/dL (3.5-5.1); Alkaline Phosphatase 103 U/L (38-126); Anion Gap 6 mmol/L (8-16); Aspartate Amino Transferase 50 U/L (14-36); Bilirubin,Total 0.8 mg/dL (0.2-1.3); Blood Urea Nitrogen 10 mg/dL (7-17); Calcium 9.3 mg/dL (8.4-10.2); Carbon Dioxide 32 mmol/L (22-30); Chloride 100 mmol/L (98-107); Estimated CRCL calculation 110 ml/min; Estimated Glomerular Filt Rate > 60; Glucose 102 mg/dL (65-110); Potassium 3.5 mmol/L (3.4-5.0); Sodium 138 mmol/L (137-145)
[2023-05-31 05:36] LABS: Anisocytosis 1+ (NORMAL); Platelet Estimate Adequate (Adequate); Schistocytes None Seen (NORMAL)
--- NOTE | 2023-05-31 08:12 | WPDANESPN ---
Anes - Prog Note Post-Op Date/Time: 05/31/23 08:12 Cardiovascular status: normal Respiratory status: normal Airway patency: baseline Mental status: baseline Post-Op hydration status: normal Vital Signs: Last Vital Signs Temp 36.8 C 05/30/23 23:45 Pulse 81 05/30/23 23:45 Resp 18 05/30/23 23:45 BP 136/80 05/30/23 23:45 Pulse Ox 93 05/30/23 23:45 O2 Del Method Room Air 05/30/23 20:00 Pain Score (VAS): 11/16 I/O: Intake & Output 05/30/23 05/31/23 05/31/23 23:59 07:59 15:59 Intake Total 720 444 Balance 720 444 Laboratory Tests 05/31/23 04:28 05/31/23 04:28 05/30/23 05/31/23 15:13 04:28 WBC 10.5 H RBC 4.15 L Hgb 14.3 Hct 43.9 MCV 105.8 H MCH 34.5 H MCHC 32.6 RDW 13.2 Plt Count 368 MPV 9.8 Immature Gran % (Auto) 0.4 Neut % (Auto) 60.5 Lymph % (Auto) 26.9 [place] % (Auto) 10.9 H Eos % (Auto) 0.8 Baso % (Auto) 0.5 Lymph # (Auto) 2.83 [place] # (Auto) 1.2 H Eos # (Auto) 0.1 Baso # (Auto) 0.1 Abs Immat Gran (auto) 0.04 H Absolute Neuts (auto) 6.4 Absolute Nucleated RBC 0.0 Nucleated RBC % 0.0 Platelet Estimate Adequate Anisocytosis 1+ Schistocytes None seen Sodium 138 Potassium 3.5 Chloride 100 Carbon Dioxide 32 H Anion Gap 6 L BUN 10 Creatinine 0.40 L Estim Creat Clear Calc 110 Estimated GFR > 60 Glucose 102 Calcium 9.3 Total Bilirubin 0.8 AST 50 H ALT 40 H Alkaline Phosphatase 103 Total Protein 8.0 Albumin 3.9 SARS-CoV-2 RNA (RT-PCR) Negative Post-procedural complaints: none Patient Feedback: Patient satisfied with anesthetic care.
[2023-05-31 08:45] VITALS: PULSE 118
[2023-05-31] MEDS: METOPROLOL TARTRATE 25 MG TABLET PO (08:45)
[2023-05-31] MEDS: diazePAM (*CRX) 5 MG TABLET PO (08:45)
[2023-05-31] MEDS: VENLAFAXINE HCL XR 75 MG CAP.ER.24H PO (08:47)
--- NOTE | 2023-05-31 09:47 | PM.DS ---
DS: Admitting Diagnosis Discharge Date 05/31/23 Admitting Diagnosis Unresponsive DS: Discharge Diagnosis Discharge Diagnosis (1) Atrial tachycardia: Code(s): I47.1 - Supraventricular tachycardia Status: Acute Assessment and Plan: Patient was taken off telemetry but noted to have tachycardia yesterday. EKG performed showing SVT versus Aflutter with a rate of 162. She has a history of atrial tachycardia and EKG appeared similar to prior EKGs. Majority of her home medications had been held because of her overdose of unknown medications. TSH normal. Metoprolol IV once given and she was started back on her oral metoprolol. She converted to NSR. Potassium 3.4 so this was replaced. Mag 2.1. 3PM: Called by RN for patient again in [facility]. BP okay so metoprolol IV repeated. Echo - EF 60-65%, mild TR and small pericardial effusion. 6PM: HR slowed but did not convert. Repeat metoprolol 05/29: NSR most of today 05/30: NSR, stent placed by urology (2) Drug overdose: Code(s): T50.901A - Poisoning by unspecified drugs, medicaments and biological substances, accidental (unintentional), initial encounter Status: Acute Assessment and Plan: Patient told her mother that she would not see her again and later patient's mother found the patient unresponsive. EMS was called. It is reported with patient has 2 new prescriptions filled of Fioricet and [place]. Patient has a history of drug overdose in the past. Urine drug screen is positive for opiates and barbiturates. Acetaminophen level was 89. She was treated with acetylcysteine. Due to her agitation, Precedex was started. She has been weaned off Precedex. Medications adjusted. She remains stable Follow. (3) Suicide attempt: Code(s): T14.91XA - Suicide attempt, initial encounter Status: Acute Assessment and Plan: Patient with bipolar disorder and schizophrenia. She has a history of suicide attempt with drug overdose. She denies that she was suicidal or that she overdosed on medications to end her life. She states she was 'only trying to get high'. Once patient is medically stable, she will need to be transferred to a psychiatric facility for further care. Spoke with psychiatry and the consult can be cancelled since the plan is for inpatient psychiatric care. (4) Bipolar mood disorder: Code(s): F31.9 - Bipolar disorder, unspecified Status: Acute Assessment and Plan: Patient with bipolar disorder with psychotic features. She also has schizophrenia listed in her medical history. Buspirone and Effexor restarted. Scheduled Valium added to control agitation. Plan for psychiatric placement when stable. (5) Hypokalemia: Code(s): E87.6 - Hypokalemia Status: Acute Assessment and Plan: Potassium dropped to 2.7 and replacement ordered. Could be related to IV fluids. On chart review, it appears that she does have a history of intermittent hypokalemia. Not on diuretics or potassium at home. TSH and cortisol levels okay. As above (6) Substance use disorder: Code(s): F19.90 - Other psychoactive substance use, unspecified, uncomplicated Status: Acute Assessment and Plan: Patient has a history of substance abuse. No evidence of withdrawal symptoms. Continue to monitor closely. (7) COPD (chronic obstructive pulmonary disease): Code(s): J44.9 - Chronic obstructive pulmonary disease, unspecified Status: Acute Assessment and Plan: Patient has a history of COPD. She is not on any inhalers listed. No active wheezing. She remains on room air. Continue to follow. (8) Hepatitis C: Code(s): B19.20 - Unspecified viral hepatitis C without hepatic coma Status: Acute Assessment and Plan: Patient has positive hepatitis C panel 1 year ago. Unclear if she has been treated. (9) Urinary tract infection, site not specified: Code(s): N39.0 -
[2023-05-31] MEDS: LORazepam INJ (*CRX) 2 MG/ML VIAL 1 MG IV PUSH (11:11)
[2023-05-31] MEDS: MORPHINE SULFATE (*CRX) 2 MG/ML INJ IV PUSH (11:12)
--- NOTE | 2023-05-31 13:21 | PC.NURSE ---
Patient DC'd to [facility] , report called to RON Vang . Called Dr Bloom office to get information to mother , Landy about follow up surgery that was mentioned to her. Office will return call to mother cell phone [phone].
== END 2023-05-31 13:09 | disposition other institution (70) | DRG 918 ==
LOC: ANHED 22:43 → ANHICU 23:06
PROVIDERS: Internal Medicine; Urology; Admitting Provider Internal Medicine; Emergency Provider General Practice; PCP Internal Medicine Gastroenterology; Visit Provider Student in an Organized Health Care Education/Training Program
PROC: 0TB68ZX Excision of Right Ureter, Via Natural or Artificial Opening Endoscopic, Diagnostic (ICD-10-PCS; CPT 52352; principal; 2023-05-30 09:15)
DX: T39.1X2A Poisoning by 4-Aminophenol derivatives, intentional self-harm, initial encounter (principal); F32.3 Major depressive disorder, single episode, severe with psychotic features; N13.6 Pyonephrosis; I47.1 Supraventricular tachycardia; C66.1 Malignant neoplasm of right ureter; T42.3X2A Poisoning by barbiturates, intentional self-harm, initial encounter; T40.602A Poisoning by unspecified narcotics, intentional self-harm, initial encounter; K21.9 Gastro-esophageal reflux disease without esophagitis; J44.9 Chronic obstructive pulmonary disease, unspecified; E87.6 Hypokalemia; R45.1 Restlessness and agitation; B96.20 Unspecified Escherichia coli [E. coli] as the cause of diseases classified elsewhere; K80.20 Calculus of gallbladder without cholecystitis without obstruction; B19.20 Unspecified viral hepatitis C without hepatic coma; F11.10 Opioid abuse, uncomplicated
CPT/HCPCS: 36415; 36600; 70450; 71045; 74176; 74420; 76700; 78708; 80053; 80076; 80307; 81001; 82533; 82607; 82746; 82805; 82948; 83605; 83735; 84100; 84132; 84443; 84702; 85025; 85027; 85610; 85730; 87077; 87086; 87088; 87186; 87635; 88305; 93005; 93306; 96361; 96365; 96366; 96367; 96368; 96375; 99285; A9270; A9562; C1758; C1769; G0378; J0132; J0696; J1100; J1650; J1940; J2060; J2250; J2270; J2310; J2405; J2704; J3010; J3475; J3480; J7030; J7040; J7060; J7070; J7120; Q9966

== ENCOUNTER 2023-06-24 12:29 | Outpatient (CLI) | payer MEDICARE, MEDICAID, SELFPAY ==
--- NOTE | ~2023-06-24 | XR_ITS ---
XR wrist RT min 3V DATE: 06/24/2023 12:47 INDICATION: Distal radial fracture. Continued pain. TECHNIQUE: 3 views COMPARISON: 06/06/2023 right wrist 01/04/2023 right breast FINDINGS: There is increased prominence of callus at the distal radial metaphyseal fracture. There is no significant change in position or alignment at the fracture site. Radiocarpal alignment is intact. There appears to be some increased density of the proximal half of the navicular bone, not evident on prior studies. No navicular fracture is evident. If there is concern for navicular avascular necrosi s, consider MR examination of the wrist. IMPRESSION: Prominent callus at the distal radial fracture without interval change in position or ali gnment Suggestion of increased density of the proximal half of the navicular bone; cannot exclude avascular necrosis. Reviewed, dictated and finalized at location B. IMPRESSION: Prominent callus at the distal radial fracture without interval mayra nge in position or alignment Suggestion of increased density of the proximal half of the navicular bone; can not exclude avascular necrosis.
== END 2023-06-24 12:30 | disposition home or self-care (01) ==
PROVIDERS: PCP Internal Medicine Gastroenterology; Visit Provider Plastic Surgery
DX: S52.501A Unspecified fracture of the lower end of right radius, initial encounter for closed fracture (principal); X58.XXXA Exposure to other specified factors, initial encounter
CPT/HCPCS: 73110

== ENCOUNTER 2023-07-04 08:08 | Outpatient (CLI) | payer MEDICARE, MEDICAID, SELFPAY ==
--- NOTE | ~2023-07-04 | CT_ITS ---
EXAMINATION: CT abdomen pelvis wo/w con DATE: 07/04/2023 08:50 INDICATION: Right ureteral cancer TECHNIQUE: Computed tomography (CT) of the abdomen and pelvis was performed without intravenous contr ast. CT of the abdomen and pelvis was then performed with a total of 130 mL Omnipaque-350 intravenous contrast using a double-bolus technique for simultaneous opacification of the renal parenchyma and r enal collecting system The dose-length product was 1324.50 mGy-cm. COMPARISON: CT dated 05/27/2023 and retrograde pyelogram dated 05/30/2023 FINDINGS: Tiny left pleural effusion and mild left basilar atelectasis. Heart size is normal. Very small perica rdial effusion. Liver, gallbladder, spleen, pancreas and bilateral adrenal glands are normal. Left ki dney and ureter are normal. There is moderate right hydroureteronephrosis which extends to the distal ureter at the level of S2 where there is a 2 cm nonopacified segment which measures 9-10 mm diameter but with no discernible intraluminal contrast consistent with urothelial carcinoma. This corresponds in location to the urothelial filling defect identified on the prior retrograde pyelogram. No urolit hiasis or other urothelial irregularities in the bilateral ureters and renal collecting systems. Ther e are few bilateral low-attenuation nonenhancing renal cysts, the largest on the left measuring 1 cm in diameter. There is heterogeneous contrast enhancement in the right kidney with multiple wedge-shap ed region of decreased cortical enhancement with surrounding perinephric stranding consistent with py elonephritis. Bladder is unremarkable with contrast opacified right-sided ureteral jet. Bowels includ ing the appendix are normal. No free intraperitoneal gas or fluid. No pathologically enlarged abdomin al or pelvic lymphadenopathy. Moderate to severe lower lumbar spondylosis including 7 mm anterolisthe sis L4 on L5 with associated severe bilateral facet osteoarthritis but no pars in particular is defec ts. IMPRESSION: 1. 2 cm segment of the distal right ureter dilated to 9-10 mm but without intraluminal contrast consi stent urothelial carcinoma. This is partially obstructing with moderate more proximal right hydrouret eronephrosis. No evident metastatic disease. 2. Pyelonephritis of the right kidney likely secondary to urostasis resulting from the partial obstru ction. Reviewed, dictated and finalized at location A. IMPRESSION: 1. 2 cm segment of the distal right ureter dilated to 9-10 mm but without intra luminal contrast consistent urothelial carcinoma. This is partially obstructing with moderate more proximal right hydroureteronephrosis. No evident metastatic disease. 2. Pyelonephritis of the right kidney likely secondary to urostasis resulting f rom the partial obstruction.
== END 2023-07-04 08:09 | disposition home or self-care (01) ==
PROVIDERS: PCP Internal Medicine Gastroenterology; Visit Provider Urology
DX: C66.1 Malignant neoplasm of right ureter (principal)
CPT/HCPCS: 74178; Q9967

== ENCOUNTER 2023-07-04 15:28 | Emergency (ER) | payer MEDICARE, MEDICAID, SELFPAY ==
[2023-07-04 15:41] VITALS: BP 112/69; PULSE 90; RESP 16; TEMP 36.4; O2SAT 100
--- NOTE | 2023-07-04 15:49 | ED.NAVMDI ---
HPI - Nausea/Vomiting/Diarrhea General Chief complaint: Nausea/Vomiting/Diarrhea Stated complaint: cold sweats, not able to eat or drink Time Seen by Provider: 07/04/23 15:30 Source: patient Mode of arrival: ambulatory Limitations: no limitations History of Present Illness HPI Narrative: Patient is a 57-year-old female who presents with 4 days nausea and vomiting. Patient states she has been unable to keep food down and is vomiting water at times as well. Patient also has fever and cold sweats. Patient been unable to sleep due to not taking her psych meds since she is unable to keep anything down. 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 Denies any changes in urinary output or blood in urine. Denies any congestion, sore throat, ear pain. Does report chronic cough from smoking. Has history of ureter angioplasty 3 weeks ago. Patient was being seen by MD Vasquez in urology and referred to MD Garcia for surgery. Patient had outpatient CT scan today ordered by MD garcia to determine best plan of action to remove cancer. Related Data Home Medications Medication Instructions Recorded Confirmed benztropine 2 mg tablet 0.5 mg PO Q8H PRN involuntary 04/18/22 07/04/23 movement prazosin 5 mg capsule 1 mg PO HS 04/18/22 07/04/23 ondansetron HCl 4 mg tablet 4 mg PO Q8H 11/22/22 07/04/23 chlorpromazine 100 mg tablet 50 mg PO Q12H 03/27/23 07/04/23 buspirone 15 mg tablet 15 mg PO Q8H 03/28/23 07/04/23 gabapentin 300 mg capsule 600 mg PO TID 05/25/23 07/04/23 sertraline 50 mg tablet (Zoloft) 50 mg PO DAILY 06/06/23 07/04/23 Allergies Allergy/AdvReac Type Severity Reaction Status Date / Time grass pollen Allergy Intermediate Hives Verified 06/24/23 13:03 amoxicillin [From Augmentin] Allergy Hives Verified 06/24/23 13:03 asenapine [From Saphris] Allergy Hives Verified 06/24/23 13:03 bacitracin Allergy Rash Verified 06/24/23 13:03 [From Neosporin ([id number])] clavulanic acid Allergy Hives Verified 06/24/23 13:03 [From Augmentin] erythromycin base Allergy Hives Verified 06/24/23 13:03 haloperidol [From Haldol] Allergy Swelling Verified 06/24/23 13:03 of Lip/Tongue/Throat latex Allergy Rash Verified 06/24/23 13:03 neomycin Allergy Rash Verified 06/24/23 13:03 [From Neosporin ([id number]-ayo-rhela)] olanzapine [From Zyprexa] Allergy Swelling Verified 06/24/23 13:03 of Lip/Tongue/Throat polymyxin B Allergy Rash Verified 06/24/23 13:03 [From Neosporin ([id number]-[id number])] risperidone [From Risperdal] Allergy Hives Verified 06/24/23 13:03 tramadol [From Ultram] Allergy Rash Verified 06/24/23 13:03 ciprofloxacin AdvReac Vomiting Verified 06/24/23 13:03 ibuprofen AdvReac Vomiting Verified 06/24/23 13:03 Steriod AdvReac Agitated Uncoded 06/24/23 13:03 Review of Systems Review of Systems: All systems reviewed & are unremarkable except as noted in HPI and below Constitutional: Constitutional: Denies body ache(s), Reports chills, Denies fatigue, Reports fever(s), Denies headache(s), Denies malaise and Denies weakness Eyes: Eyes: Denies blurry vision, Denies irritation and Denies loss of vision ENT: Denies otalgia, Denies headache(s), Denies nasal discharge, Denies sinus pain and Denies sore throat Cardiovascular: Cardiovascular: Denies chest pain, Denies irregular heart rhythm and Denies dyspnea Respiratory: Respiratory: Reports cough and Denies dyspnea Gastrointestinal: Gastrointestinal: Reports abdominal pain, Denies melena, Denies hematochezia, Denies diarrhea, Reports nausea and Reports vomiting Musculoskeletal: Musculoskeletal: Denies back pain, Denies myalgias and Denies arthralgias Integumentary/Breasts: Skin/Breast: Denies pruritus and Denies rash Neurologic: Denies headache(s), Denies loss of vision and Denies weakness Psychiatric: Psychiatric: Reports no additional psychiatric complaints Endocrine: Endocrine: Denies fatigue [facility]
[2023-07-04] MEDS: ONDANSETRON INJ 4 MG/2 ML VIAL IM (16:11)
== END 2023-07-04 16:33 | disposition short-term general hospital (02) ==
PROVIDERS: Emergency Provider Nurse Practitioner Family
DX: N12 Tubulo-interstitial nephritis, not specified as acute or chronic (principal); F17.210 Nicotine dependence, cigarettes, uncomplicated; J44.9 Chronic obstructive pulmonary disease, unspecified; F41.9 Anxiety disorder, unspecified; F20.9 Schizophrenia, unspecified
CPT/HCPCS: 87804; 96372; 99213; G0463; J2405

== ENCOUNTER 2023-07-04 16:52 | Observation (INO) | payer MEDICARE, MEDICAID, SELFPAY ==
[2023-07-04] VITALS (11 sets, daily range): BP systolic 114–125; BP diastolic 58–83; PULSE 94–119; RESP 16–36; TEMP 36.6; O2SAT 99–100
--- NOTE | ~2023-07-04 | XR_ITS ---
EXAMINATION: XR retrograde pyelo w/stent RT DATE: 07/05/2023 12:26 INDICATION: Cystogram, right retrograde pyelogram and stent placement. TECHNIQUE: 4 fluoroscopic images of the abdomen and pelvis were obtained during procedure performed hayde Bloom. Radiologist was not present for the imaging or procedure. The amount of fluoroscopy angel e used during this procedure was 0.9 minutes. COMPARISON: CT dated 07/04/2023 FINDINGS: Initial image demonstrates cannulation and retrograde contrast injections into the right ureter. The distal ureter opacifies with contrast which appears to result in the identical region as a filling de fect seen on the prior retrograde pyelogram and CT urogram. Small amount of contrast is seen in the r ight renal collecting system. Contrast was injected into the bladder which demonstrates a normal cont our with no mucosal irregularities. Final images demonstrate placement of a right internal ureteral s tent with proximal tip coiled in the renal pelvis. The distal loop is formed within the now decompres sed bladder on the final image. IMPRESSION: 1. Stricture concerning for malignancy in the distal right ureter which is better appreciated on the prior imaging and with subsequent placement of a right internal ureteral stent which is in expected p osition. Reviewed, dictated and finalized at location A. IMPRESSION: 1. Stricture concerning for malignancy in the distal right ureter which is bett er appreciated on the prior imaging and with subsequent placement of a right in ternal ureteral stent which is in expected position.
[2023-07-04 17:57] LABS: Basophils Absolute Auto 0.1 K/mm3 (0.0-0.1); Basophils Percent Auto 0.3 % (0.2-1.2); Hematocrit 42.6 % (37.0-47.0); Immature Granulocyte Absolute 0.14 K/mm3 (0.00-0.031); Immature Granulocyte Percent A 0.7 % (0-0.5); Lymphocytes Absolute Auto 2.01 K/mm3 (0.9-3.2); Lymphocytes Percent Auto 10.2 % (18.3-44.2); Mean Corpuscular HGB Conc 32.9 g/dl (32-36); Mean Corpuscular Hemoglobin 34.2 pg (26-34); Mean Corpuscular Volume 104.2 fl (80-100); Mean Platelet Volume 9.3 fl (7.4-10.4); Monocytes Absolute Auto 3.6 K/mm3 (0.1-0.6); Monocytes Percent Auto 18.4 % (2.6-8.5); Neutrophils Absolute Auto 13.8 K/mm3 (1.3-6.7); Neutrophils Percent Auto 70.4 % (45.5-73.1); Platelet Count Result 328 k/mm3 (150-375); Red Blood Count 4.09 M/mm3 (4.2-5.4); Red Cell Distribution Width 13.8 % (11.5-14.5); White Blood Count 19.6 K/mm3 (4.5-10.0)
[2023-07-04 18:11] LABS: Alanine Aminotransferase 14 U/L (6-35); Albumin Level 4.3 g/dL (3.5-5.1); Alkaline Phosphatase 98 U/L (38-126); Anion Gap 10 mmol/L (8-16); Aspartate Amino Transferase 15 U/L (14-36); Bilirubin,Total 0.7 mg/dL (0.2-1.3); Blood Urea Nitrogen 6 mg/dL (7-17); Calcium 10.1 mg/dL (8.4-10.2); Carbon Dioxide 29 mmol/L (22-30); Chloride 96 mmol/L (98-107); Estimated CRCL calculation 78 ml/min; Estimated Glomerular Filt Rate > 60; Glucose 120 mg/dL (65-110); Lipase 12 U/L (23-300); Potassium 2.7 mmol/L (3.4-5.0); Sodium 135 mmol/L (137-145)
--- NOTE | 2023-07-04 18:58 | ED.ABDPAIN ---
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 Patient had a biopsy by Dr. Marcum approximately 6 weeks ago. Patient is having follow-up with Dr. Vanegas and she had an outpatient CT scan to evaluate the tumor. Patient was then found to have pyelonephritis with urinary obstruction and patient was referred to the emergency department for further evaluation Related Data Home Medications Medication Instructions Recorded Confirmed benztropine 2 mg tablet 0.5 mg PO Q8H PRN involuntary 04/18/22 07/04/23 movement prazosin 5 mg capsule 1 mg PO HS 04/18/22 07/04/23 ondansetron HCl 4 mg tablet 4 mg PO Q8H 11/22/22 07/04/23 chlorpromazine 100 mg tablet 50 mg PO Q12H 03/27/23 07/04/23 buspirone 15 mg tablet 15 mg PO Q8H 03/28/23 07/04/23 gabapentin 300 mg capsule 600 mg PO TID 05/25/23 07/04/23 sertraline 50 mg tablet (Zoloft) 50 mg PO DAILY 06/06/23 07/04/23 Allergies Allergy/AdvReac Type Severity Reaction Status Date / Time grass pollen Allergy Intermediate Hives Verified 06/24/23 13:03 amoxicillin [From Augmentin] Allergy Hives Verified 06/24/23 13:03 asenapine [From Saphris] Allergy Hives Verified 06/24/23 13:03 bacitracin Allergy Rash Verified 06/24/23 13:03 [From Neosporin ([id number]-[id number])] clavulanic acid Allergy Hives Verified 06/24/23 13:03 [From Augmentin] erythromycin base Allergy Hives Verified 06/24/23 13:03 haloperidol [From Haldol] Allergy Swelling Verified 06/24/23 13:03 of Lip/Tongue/Throat latex Allergy Rash Verified 06/24/23 13:03 neomycin Allergy Rash Verified 06/24/23 13:03 [From Neosporin ([id number]-cuu-[id number])] olanzapine [From Zyprexa] Allergy Swelling Verified 06/24/23 13:03 of Lip/Tongue/Throat polymyxin B Allergy Rash Verified 06/24/23 13:03 [From Neosporin ([id number])] risperidone [From Risperdal] Allergy Hives Verified 06/24/23 13:03 tramadol [From Ultram] Allergy Rash Verified 06/24/23 13:03 ciprofloxacin AdvReac Vomiting Verified 06/24/23 13:03 ibuprofen AdvReac Vomiting Verified 06/24/23 13:03 Steriod AdvReac Agitated Uncoded 06/24/23 13:03 Review of Systems Review of Systems: All systems reviewed & are unremarkable except as noted in HPI and below PMFSH Past Medical History Medical History Ankle fracture, lateral malleolus, closed December 2022 Anxiety Back pain Bipolar mood disorder Carpal tunnel syndrome COPD (chronic obstructive pulmonary disease) Distal radial fracture December 2022 Drug overdose Migraine Overdose of lithium or lithium compound Schizophrenia Seizure Suicide attempt Surgical History Surgical History H/O dilation and curettage H/O foot surgery 2021 X2 H/O tubal ligation H/O: hysterectomy 2000 History of back surgery 1999 History of kidney surgery History of tonsillectomy Family History Family History Father Alcoholism Grandparent Diabetes mellitus Hypertension Heart disease Mother Kidney disease Grandparent Alcoholism Social History Social History Social History: The patient is noted to be single and disabled. Her mother is listed as a durable power of privacy attorney for healthcare. She is listed as a full code. Smoking packs per day: 0.75 Smoking cigarettes per day: 15.0 Years smoked: 47 Smoking pack-years: 35.25 Smoking status: Current every day smoker Second hand tobacco smoke exposure: No Alcohol intake: never Substance use: former Substance use type: painkillers and pres
--- NOTE | 2023-07-04 19:23 | PM.IMHP ---
H&P: HPI History of Present Illness Date/Time: 07/04/23 19:23 Chief Complaint: Right flank pain Narrative: This is a 57-year-old female with past medical history significant for anxiety, bipolar mood disorder, COPD, tobacco dependence, schizophrenia, depression. Patient comes to the emergency room due to right flank pain for the last 3 days but ongoing malaise nausea vomiting chills for roughly a week patient has not been able to eat, poor oral intake, poor appetite. Preliminary workup was significant for CT of abdomen and pelvis with pyelonephritis. EXAMINATION: CT abdomen pelvis wo/w con DATE: 07/04/2023 08:50 INDICATION: Right ureteral cancer TECHNIQUE: Computed tomography (CT) of the abdomen and pelvis was performed without intravenous contrast. CT of the abdomen and pelvis was then performed with a total of 130 mL Omnipaque-350 intravenous contrast using a double-bolus technique for simultaneous opacification of the renal parenchyma and renal collecting system The dose-length product was 1324.50 mGy-cm. COMPARISON: CT dated 05/27/2023 and retrograde pyelogram dated 05/30/2023 FINDINGS: Tiny left pleural effusion and mild left basilar atelectasis. Heart size is normal. Very small pericardial effusion. Liver, gallbladder, spleen, pancreas and bilateral adrenal glands are normal. Left kidney and ureter are normal. There is moderate right hydroureteronephrosis which extends to the distal ureter at the level of S2 where there is a 2 cm nonopacified segment which measures 9-10 mm diameter but with no discernible intraluminal contrast consistent with urothelial carcinoma. This corresponds in location to the urothelial filling defect identified on the prior retrograde pyelogram. No urolithiasis or other urothelial irregularities in the bilateral ureters and renal collecting systems. There are few bilateral low-attenuation nonenhancing renal cysts, the largest on the left measuring 1 cm in diameter. There is heterogeneous contrast enhancement in the right kidney with multiple wedge-shaped region of decreased cortical enhancement with surrounding perinephric stranding consistent with pyelonephritis. Bladder is unremarkable with contrast opacified right-sided ureteral jet. Bowels including the appendix are normal. No free intraperitoneal gas or fluid. No pathologically enlarged abdominal or pelvic lymphadenopathy. Moderate to severe lower lumbar spondylosis including 7 mm anterolisthesis L4 on L5 with associated severe bilateral facet osteoarthritis but no pars in particular is defects. IMPRESSION: 1. 2 cm segment of the distal right ureter dilated to 9-10 mm but without intraluminal contrast consistent urothelial carcinoma. This is partially obstructing with moderate more proximal right hydroureteronephrosis. No evident metastatic disease. 2. Pyelonephritis of the right kidney likely secondary to urostasis resulting from the partial obstruction. Review of Systems Review of Systems: Right flank pain, nausea, vomiting poor per orally intake, fevers, chills generalized malaise Constitutional: Constitutional: Reports chills, Reports fatigue, Reports fever(s), Reports malaise, Reports poor appetite and Reports weakness Eyes: Eyes: Denies change in vision ENT: Denies dysphagia and Denies odynophagia Cardiovascular: Cardiovascular: Denies chest pain, Denies radiating jaw, neck or arm pain and Denies palpitations Respiratory: Respiratory: Denies cough, Denies excessive phlegm production, Denies pain on inspiration and Denies dyspnea Gastrointestinal: Gastrointestinal: Denies abdominal pain, Denies dyspepsia, Denies heartburn, Reports nausea and Reports vomiting Genitourinary: Genitourinary: Reports flank pain (Right-sided) Musculoskeletal: Musculoskeletal: Reports muscle weakness Integumentary/Breasts: Skin/Breast: Denies rash Neurologic: Denies focal weakness and Denies Sensory deficit (Neuro) Psychiatric: Psychiatric: Reports no additional
[2023-07-04 19:55] LABS: Appearance Urine Cloudy (Clear); Bacteria Urine 4+ /hpf; Bilirubin Urine Negative (Negative); Blood Urine Trace (Negative); Color Urine Yellow (Yellow); Glucose Urine UA Negative (Negative); Ketones Urine Negative (Negative); Leukocyte Esterase Ur 1+ LEU/UL (Negative); Need Manual Microscopic Reviewed; Nitrate Urine Negative (Negative); Non Pathogenic Casts 0-2; Protein Urine 1+ mg/dL (Negative); RBC Urine 0-2 /hpf (0-2); Specific Grav Ur 1.012 (1.001-1.035); Squamous Epithelial Cell Urine None seen /hpf (Few); Urobilinogen Urine 0.2 mg/dL (<2.0); pH Urine 6.5 (5.0-9.0)
[2023-07-04 19:57] LABS: Add Urine Microscopic? YES
[2023-07-04] MEDS: ONDANSETRON INJ 4 MG/2 ML VIAL IV PUSH ×2 (20:00→22:55)
[2023-07-04] MEDS: SODIUM CHLORIDE 0.9% IV 1,000 ML 125 ML IV CONT (20:00)
--- NOTE | 2023-07-04 21:49 | ADMGEN ---
This patient, Mahnaz Oseguera, was admitted to [facility] Surg Room 314-01. Patient/family oriented to hospital policies and general routines including ID bracelet, bed and alarms, visiting hours, pain management, procedures, bathroom and other care routines, personal items, smoking policy, room service/diet, and visiting hours. Information on how to activate the Rapid Response Team has been discussed. Patient/Family are encouraged to report perceived risks to care and to ask questions if they do not understand what they are told or what they should do.
[2023-07-04] MEDS: fentaNYL CITRATE INJ (*CRX) 100 MCG/2 ML VIAL 50 MCG IV PUSH (23:00)
[2023-07-04] MEDS: POTASSIUM CHLORIDE 20 MEQ PACKET (FOR LIQUID) 40 MEQ PO (23:12)
[2023-07-05] VITALS (17 sets, daily range): BP systolic 100–131; BP diastolic 63–83; PULSE 82–100; RESP 16–20; TEMP 36.3–37.9; O2SAT 94–100
[2023-07-05] MEDS: HYDROmorphone HCL INJ (*CRX) 1 MG/ML SYR 0.5 MG IV PUSH ×4 (02:10→21:30)
[2023-07-05] MEDS: ONDANSETRON INJ 4 MG/2 ML VIAL IV PUSH ×2 (05:38→09:34)
[2023-07-05] MEDS: ACETAMINOPHEN 500 MG TABLET 1000 MG PO (05:48)
[2023-07-05 09:07] LABS: Basophils Absolute Auto 0.1 K/mm3 (0.0-0.1); Basophils Percent Auto 0.3 % (0.2-1.2); Eosinophils Absolute Auto 0.1 K/mm3 (0-0.3); Eosinophils Percent Auto 0.3 % (0-4.4); Hematocrit 38.3 % (37.0-47.0); Hemoglobin 12.4 g/dL (12.0-15.0); Immature Granulocyte Absolute 0.11 K/mm3 (0.00-0.031); Immature Granulocyte Percent A 0.6 % (0-0.5); Lymphocytes Absolute Auto 1.55 K/mm3 (0.9-3.2); Lymphocytes Percent Auto 8.1 % (18.3-44.2); Mean Corpuscular HGB Conc 32.4 g/dl (32-36); Mean Corpuscular Hemoglobin 34.3 pg (26-34); Mean Corpuscular Volume 106.1 fl (80-100); Mean Platelet Volume 9.7 fl (7.4-10.4); Monocytes Absolute Auto 3.1 K/mm3 (0.1-0.6); Monocytes Percent Auto 16.3 % (2.6-8.5); Neutrophils Absolute Auto 14.2 K/mm3 (1.3-6.7); Neutrophils Percent Auto 74.4 % (45.5-73.1); Platelet Count Result 299 k/mm3 (150-375); Red Blood Count 3.61 M/mm3 (4.2-5.4); Red Cell Distribution Width 13.8 % (11.5-14.5)
[2023-07-05 09:15] LABS: Lactic Acid Reflex 0.8 mmol/L (0.7-2.0)
[2023-07-05 09:16] LABS: Anion Gap 7 mmol/L (8-16); Blood Urea Nitrogen 8 mg/dL (7-17); Calcium 9.3 mg/dL (8.4-10.2); Carbon Dioxide 26 mmol/L (22-30); Chloride 103 mmol/L (98-107); Estimated CRCL calculation 92 ml/min; Estimated Glomerular Filt Rate > 60; Glucose 131 mg/dL (65-110); Magnesium 1.8 mg/dL (1.6-2.3); Potassium 3.2 mmol/L (3.4-5.0); Sodium 136 mmol/L (137-145)
--- NOTE | 2023-07-05 09:18 | WPDURCON ---
Assessment and Plan Assessment and plan (1) Pyelonephritis: Code(s): N12 - Tubulo-interstitial nephritis, not specified as acute or chronic Status: Acute (2) Hydronephrosis: Code(s): N13.30 - Unspecified hydronephrosis Status: Acute (3) Carcinoma of right ureter: Code(s): C66.1 - Malignant neoplasm of right ureter Status: Acute Assessment and Plan: Cystoscopy with right ureteral stent placement today Definitive ureteral cancer management Dr. Vanegas Urology Consult Note HPI Date Seen: 07/05/23 Requesting Physician: Brenda Phillip MD Primary Care Provider: Neil Barbour, Consult Narrative Narrative: Mahnaz Oseguera is a 57 year old female who became familiar to our practice during recent admission following an attempted suicide. Evaluation for hematuria, somewhat surprisingly, ultimately demonstrated a right mid ureteral urothelial carcinoma. She is undergoing evaluation and preparation for either nephro ureterectomy, ureteral reimplantation or laser ablation by Dr. Vanegas. She presents with subjective fever and right flank pain. CT urogram demonstrates moderate right hydronephrosis and does demonstrate the filling defect in her right mid ureter. Review of Systems Review of Systems: All systems reviewed & are unremarkable except as noted in HPI and below PMFSH Past Medical History Medical History Ankle fracture, lateral malleolus, closed December 2022 Anxiety Back pain Bipolar mood disorder Carpal tunnel syndrome COPD (chronic obstructive pulmonary disease) Distal radial fracture December 2022 Drug overdose Migraine Overdose of lithium or lithium compound Schizophrenia Seizure Suicide attempt Surgical History Surgical History H/O dilation and curettage H/O foot surgery 2021 X2 H/O tubal ligation H/O: hysterectomy 2000 History of back surgery 1999 History of kidney surgery History of tonsillectomy Family History Family History Father Alcoholism Grandparent Diabetes mellitus Hypertension Heart disease Mother Kidney disease Grandparent Alcoholism Social History Social History Social History: The patient is noted to be single and disabled. Her mother is listed as a durable power of reading intervention teacher for healthcare. She is listed as a full code. Smoking packs per day: 1 Smoking cigarettes per day: 20.0 Years smoked: 47 Smoking pack-years: 47.00 Smoking status: Current every day smoker Tobacco type: cigarettes Second hand tobacco smoke exposure: No Alcohol intake: never Substance use: never Substance use type: painkillers and prescription drug Other substance usage details: something for headaches Last use: 03/25/23 Lack of Transportation: No Lack of Food: Never True Current Housing: I Have Housing Concerned About Future Housing: No Difficulty Paying Gas/Electric Bills: No Difficulty Paying for Meds: No Currently Unemployed: No Education: High School Diploma/GED Difficulty w/ Childcare or Family Care: No Living arrangements: with family Occupation/Education: unemployed Spiritual care concerns: No Meds Home Medications and Allergies Home Medications Medication Instructions Recorded Confirmed Type benztropine 2 mg tablet 0.5 mg PO Q8H PRN involuntary 04/18/22 07/04/23 History movement prazosin 5 mg capsule 1 mg PO HS 04/18/22 07/04/23 History ondansetron HCl 4 mg tablet 4 mg PO Q8H 11/22/22 07/04/23 History chlorpromazine 100 mg tablet 50 mg PO Q12H 03/27/23 07/04/23 History buspirone 15 mg tablet 15 mg PO TID 03/28/23 07/04/23 History gabapentin 300 mg capsule 600 mg PO TID 05/25/23 07/04/23 History sertraline 50 mg tablet (Zoloft) 50 mg PO DAILY
--- NOTE | 2023-07-05 09:20 | WPDHPUPDATE1 ---
History and Physical Update Update Date/Time: 07/05/23 09:20 History and Physical has been reviewed, including an updated exam of the patient. There are NO changes in the patient's condition. Risks, benefits, and alternatives have been discussed and questions answered. Patient agrees to proceed with procedure.
[2023-07-05 09:42] LABS: Procalcitonin 0.3 ng/mL
--- NOTE | 2023-07-05 10:47 | PM.IMPN ---
Progress Note: A&P Assessment and Plan (1) Carcinoma of right ureter: Code(s): C66.1 - Malignant neoplasm of right ureter Status: Acute (2) Pyelonephritis: Code(s): N12 - Tubulo-interstitial nephritis, not specified as acute or chronic Status: Acute (3) Acute hypokalemia: Code(s): E87.6 - Hypokalemia Status: Acute (4) Hydronephrosis: Code(s): N13.30 - Unspecified hydronephrosis Status: Acute Plan 57F w/ PMH anxiety, bipolar disorder, previous suicide attempt, schizophrenia, depression, COPD, tobacco abuse, carpal tunnel syndrome, migraines, right low grade urothelial carcinoma (06/01) presents with right side abdominal and back pain. Admitted on 07/04 for pyelonephritis. 1) R pyelonephritis/hydronephrosis w/ urothelia carcinomia - urology consulted. she had pyelogram 06/01 but stent not placed / to psychiatric concerns. she will be going for stent today. - WBC stabilizing at 19.0. ctm along with procalcitonin. continue ceftriaxone started 07/04 2) hypokalemia - replace and recheck 3) cont all other home meds and monitor psych status FEN: NS, NPO GI prophylaxis: not indicated DVT prophylaxis: SCD's for now Lines: pIV Code Status: Full Code Dispo: stable. More than 25 minutes spent on chart review, patient interaction and assessment and plan. Subjective Date/time seen: 07/05/23 10:47 Interval history: NAOE. pt appears in good spirits. she reports improved pain or RUQ and right flank. she denies sob, bladder issues, chest pain, or any other complaints. Review of Systems Review of Systems: All systems reviewed & are unremarkable except as noted in HPI and below Exam Const: General: comfortable and no acute distress Eyes: Pupils: Equal, round and reactive pupils present Neck: Neck: supple Resp: Effort & Inspection: normal respiratory effort Auscultation: clear to auscultation bilaterally Cardio: Rate: regular rate Rhythm: regular rhythm GI: Inspection: non-distended GI Palp: Yes Soft to palpation and Yes Tenderness to palpation present (GI) (mild, to right CVA tapping, and deep palpation of RUQ) Auscultation: normal bowel sounds Extrem: General: no edema Objective Data Vital Signs Vital Signs: Vital Signs - 24 hr 07/04/23 16:58 07/04/23 19:13 07/04/23 19:59 Temperature 97.9 F Pulse Rate 94 107 H 119 H Respiratory Rate 16 19 29 H Blood Pressure 125/70 123/65 114/83 Pulse Oximetry 100 99 Oxygen Delivery Room Air 07/04/23 20:07 07/04/23 20:15 07/04/23 20:16 Temperature Pulse Rate 112 H 109 H 108 H Respiratory Rate 26 H 28 H 36 H Blood Pressure 117/66 Pulse Oximetry Oxygen Delivery 07/04/23 20:30 07/04/23 20:31 07/04/23 20:47 Temperature Pulse Rate 100 101 H 102 H Respiratory Rate 30 H 33 H 28 H Blood Pressure 125/64 Pulse Oximetry Oxygen Delivery 07/04/23 21:01 07/04/23 22:00 07/05/23 00:00 Temperature Pulse Rate 94 94 92 Respiratory Rate 32 H 32 H Blood Pressure 120/58 L Pulse Oximetry 99 Oxygen Delivery Room Air 07/05/23 05:48 07/05/23 06:00 07/05/23 04:00 Temperature 100.2 F H 100.2 F H Pulse Rate 89 100 Respiratory Rate 16 Blood Pressure 131/70 Pulse Oximetry 99 Oxygen Delivery 07/05/23 07:46 Temperature Pulse Rate Respiratory Rate Blood Pressure Pulse Oximetry 99 Oxygen Delivery Room Air Intake/Output Intake/Output: Intake & Output 07/02/23 07/03/23 07/04/23 07/05/23 23:59 23:59 23:59 23:59 Intake Total 50 Balance 50 Meds/Results Medications: Active Medications Generic Name Dose Route Start Last Admin Trade Name Freq PRN Reason Stop Dose Admin Acetaminophen 1,000 mg 07/05/23 01:13 07/05/23 05:48 Acetaminophen 500 Mg Tablet PO 1,000 mg Q6H PRN Administration Mild Pain (1-3) or Fever Benztropine Mesylate 0.5 mg 07/05/23 01:11 Benztropine Mesylate 0.5 Mg Tablet PO Q8H PRN involuntar
[2023-07-05] MEDS: LACTATED RINGERS 1,000 ML 30 ML IV CONT (11:05)
--- NOTE | 2023-07-05 11:13 | WPDANESEPPF ---
Anes - Initial Pre Proc Eval Procedure: Operation Date: 07/05/23 12:00 Proposed Procedures p Cystoscopy, Right Stent Placement - Efrain Bloom MD Date/Time: 07/05/23 11:13 Surgeon: Brenda Phillip MD Pre Op Diagnosis: Pyelonephritis Patient Data Age: 57 Gender: F Height: 1.55 m Weight: 67.9 kg Last Vital Signs Temp 37.9 C H 07/05/23 06:00 Pulse 89 07/05/23 06:00 Resp 16 07/05/23 06:00 BP 131/70 07/05/23 06:00 Pulse Ox 99 07/05/23 07:46 O2 Del Method Room Air 07/05/23 07:46 Allergies Allergy/AdvReac Type Severity Reaction Status Date / Time grass pollen Allergy Intermediate Hives Verified 06/24/23 13:03 amoxicillin [From Augmentin] Allergy Hives Verified 06/24/23 13:03 asenapine [From Saphris] Allergy Hives Verified 06/24/23 13:03 bacitracin Allergy Rash Verified 06/24/23 13:03 [From Neosporin ([id number])] clavulanic acid Allergy Hives Verified 06/24/23 13:03 [From Augmentin] erythromycin base Allergy Hives Verified 06/24/23 13:03 haloperidol [From Haldol] Allergy Swelling Verified 06/24/23 13:03 of Lip/Tongue/Throat latex Allergy Rash Verified 06/24/23 13:03 neomycin Allergy Rash Verified 06/24/23 13:03 [From Neosporin ([id number])] olanzapine [From Zyprexa] Allergy Swelling Verified 06/24/23 13:03 of Lip/Tongue/Throat polymyxin B Allergy Rash Verified 06/24/23 13:03 [From Neosporin ([id number])] risperidone [From Risperdal] Allergy Hives Verified 06/24/23 13:03 tramadol [From Ultram] Allergy Rash Verified 06/24/23 13:03 ciprofloxacin AdvReac Vomiting Verified 06/24/23 13:03 ibuprofen AdvReac Vomiting Verified 06/24/23 13:03 Steriod AdvReac Agitated Uncoded 06/24/23 13:03 Home Medications Medication Instructions Recorded Confirmed Type benztropine 2 mg tablet 0.5 mg PO Q8H PRN involuntary 04/18/22 07/04/23 History movement prazosin 5 mg capsule 1 mg PO HS 04/18/22 07/04/23 History ondansetron HCl 4 mg tablet 4 mg PO Q8H 11/22/22 07/04/23 History chlorpromazine 100 mg tablet 50 mg PO Q12H 03/27/23 07/04/23 History buspirone 15 mg tablet 15 mg PO TID 03/28/23 07/04/23 History gabapentin 300 mg capsule 600 mg PO TID 05/25/23 07/04/23 History sertraline 50 mg tablet (Zoloft) 50 mg PO DAILY 06/06/23 07/04/23 History Laboratory Tests 07/04/23 07/04/23 07/05/23 17:51 19:27 08:52 WBC 19.6 H K/mm3 19.0 H K/mm3 (4.5-10.0) (4.5-10.0) RBC 4.09 L M/mm3 3.61 L M/mm3 (4.2-5.4) (4.2-5.4) Hgb 14.0 g/dL 12.4 g/dL (12.0-15.0) (12.0-15.0) Hct 42.6 % 38.3 % (37.0-47.0) (37.0-47.0) MCV 104.2 H fl 106.1 H fl (80-100) (80-100) MCH 34.2 H pg 34.3 H pg (26-34) (26-34) MCHC 32.9 g/dl 32.4 g/dl (32-36) (32-36) RDW 13.8 % 13.8 % (11.5-14.5) (11.5-14.5) Plt Count 328 k/mm3 299 k/mm3 (150-375) (150-375) MPV 9.3 fl 9.7 fl (7.4-10.4) (7.4-10.4) Immature Gran % (Auto) 0.7 H % 0.6 H % (0-0.5) (0-0.5) Neut % (Auto) 70.4 % 74.4 H % (45.5-73.1) (45.5-73.1) Lymph % (Auto) 10.2 L % 8.1 L % (18.3-44.2) (18.3-44.2) [place] % (Auto) 18.4 H % 16.3 H % (2.6-8.5) (2.6-8.5) Eos % (Auto) 0.0 % 0.3 % (0-4.4) (0-4.4) Baso % (Auto) 0.3 % 0.3 % (0.2-1.2) (0.2-1.2) Lymph # (Auto) 2.01 K/mm3 1.55 K/mm3 (0.9-3.2) (0.9-3.2) [place] # (Auto) 3.6 H K/mm3 3.1 H K/mm3 (0.1-0.6) (0.1-0.6) Eos # (Auto) 0.0 K/mm3 0.1 K/mm3 (0-0.3) (0-0.3) Baso # (Auto) 0.1 K/mm3 0.1 K/mm3 (0.0-0.1) (0.0-0.1) Abs Immat Gran (auto) 0.14 H K/mm3 0.11 H K/mm3 (0.00-0.031) (0.00-0.031) Absolute Neuts (auto) 13.8 H K/mm3 14.2 H K/mm3 (1.3-6.7) (1.3-6.7) Absolute Nucleated RBC 0.0 K/mm3 0.0 K/mm3 (0.0-0.012) (0.0-0.012) Nucleated RBC % 0.0 % 0.0 % (0.0-0.2) (0.0-0.2) Sodium 135 L mmol/L 136
[2023-07-05] MEDS: LIDOCAINE HCL 2% GEL UROJET 10 ML PKG MUCOUS MEM (12:19)
--- NOTE | 2023-07-05 12:33 | P.OP_ITS ---
Procedure Note - Detailed Date of Procedure 07/05/23 Pre-op Diagnosis Right rueteral ca. and pyelonephritis Post-op Diagnosis Same Procedure Performed Cystoscopy, intraoperative cystogram, right retrograde pyelography and ureteral stent placement Surgeon Efrain Bloom MD Anesthesia General Description of Procedure patient is brought to the operative suite where she was prepped and draped in a routine sterile fashion wall and a dorsal lithotomy position after the uneventful induction of general LMA anesthetic. Cystoscopy was undertaken with a 19 [place] rigid cystoscope. Bladder neck and urethra normal. Bladder mucosa is normal. There was no intravesical for body or neoplasm. She has a single orthotopic ureteral orifice bilaterally. I placed an 18 Nigerian Rich catheter and did an intraoperative low-pressure cystogram via filling the bladder to 400 cc. This demonstrates moderate bladder distention to just below the pelvic inlet. Performed a right retrograde pyelogram with a [place] catheter to ensure identification of the renal pelvis and ensure appropriate positioning of a 4.8 Nigerian right double J variable length ureteral stent which which was placed over a 0.035 in glidewire. We will leave the stent indwelling. She has upcoming consultation with Dr. Vanegas regarding her treatment options for right mid ureteral cancer Drains Yes Packing No Pathology None sent Complications No immediate complications
[2023-07-05] MEDS: GABAPENTIN 300 MG CAPSULE 600 MG PO ×2 (13:34→16:48)
[2023-07-05] MEDS: busPIRone HCL 5 MG TABLET 15 MG PO ×2 (13:35→16:49)
[2023-07-05] MEDS: SERTRALINE HCL 50 MG TABLET PO (13:36)
[2023-07-05] MEDS: KCL 20 MEQ/SW 100 ML 100 ML 50 MEQ IVPB (13:36)
[2023-07-05] MEDS: SODIUM CHLORIDE 0.9% IV 1,000 ML 125 ML IV CONT (13:42)
[2023-07-05] MEDS: chlorproMAZINE HCL 25 MG TABLET 50 MG PO (21:31)
[2023-07-05] MEDS: PRAZOSIN HCL 1 MG CAPSULE PO (21:31)
[2023-07-06] VITALS (11 sets, daily range): BP systolic 105–134; BP diastolic 50–82; PULSE 63–90; RESP 16–20; TEMP 36.4–36.7; O2SAT 90–98
[2023-07-06] MEDS: SODIUM CHLORIDE 0.9% IV 1,000 ML 125 ML IV CONT ×2 (04:36→20:48)
[2023-07-06] MEDS: HYDROmorphone HCL INJ (*CRX) 1 MG/ML SYR 0.5 MG IV PUSH ×5 (04:42→20:50)
[2023-07-06 06:58] LABS: Basophils Percent Auto 0.1 % (0.2-1.2); Hemoglobin 11.7 g/dL (12.0-15.0); Immature Granulocyte Absolute 0.15 K/mm3 (0.00-0.031); Immature Granulocyte Percent A 0.9 % (0-0.5); Lymphocytes Absolute Auto 1.42 K/mm3 (0.9-3.2); Lymphocytes Percent Auto 8.6 % (18.3-44.2); Mean Corpuscular HGB Conc 32.5 g/dl (32-36); Mean Corpuscular Hemoglobin 34.7 pg (26-34); Mean Corpuscular Volume 106.8 fl (80-100); Mean Platelet Volume 9.9 fl (7.4-10.4); Monocytes Absolute Auto 1.2 K/mm3 (0.1-0.6); Monocytes Percent Auto 7.5 % (2.6-8.5); Neutrophils Absolute Auto 13.8 K/mm3 (1.3-6.7); Neutrophils Percent Auto 82.9 % (45.5-73.1); Platelet Count Result 309 k/mm3 (150-375); Red Blood Count 3.37 M/mm3 (4.2-5.4); Red Cell Distribution Width 13.7 % (11.5-14.5); White Blood Count 16.6 K/mm3 (4.5-10.0)
[2023-07-06 07:28] LABS: Blood Urea Nitrogen 11 mg/dL (7-17); Calcium 8.9 mg/dL (8.4-10.2); Carbon Dioxide 25 mmol/L (22-30); Estimated CRCL calculation 143 ml/min; Estimated Glomerular Filt Rate > 60; Glucose 174 mg/dL (65-110); Magnesium 1.9 mg/dL (1.6-2.3)
[2023-07-06 07:31] LABS: Anion Gap 8 mmol/L (8-16); Chloride 104 mmol/L (98-107); Sodium 137 mmol/L (137-145)
[2023-07-06] MEDS: GABAPENTIN 300 MG CAPSULE 600 MG PO ×3 (08:28→16:07)
[2023-07-06] MEDS: ACETAMINOPHEN 500 MG TABLET 1000 MG PO ×2 (08:28→16:07)
[2023-07-06] MEDS: SERTRALINE HCL 50 MG TABLET PO (08:28)
[2023-07-06] MEDS: busPIRone HCL 5 MG TABLET 15 MG PO ×3 (08:28→16:07)
[2023-07-06 08:40] LABS: Procalcitonin 0.2 ng/mL
--- NOTE | 2023-07-06 10:40 | WPDUROPN2 ---
Progress Note: A&P Assessment and Plan (1) Carcinoma of right ureter: Code(s): C66.1 - Malignant neoplasm of right ureter Status: Acute Assessment and Plan: I reviewed the CT urogram results with her. She will need a right distal ureterectomy with psoas hitch. Will work on finding OR time for the procedure. (2) Pyelonephritis: Code(s): N12 - Tubulo-interstitial nephritis, not specified as acute or chronic Status: Acute Assessment and Plan: Stent was placed. On antibiotics. FU culture results and tailor abx appropriately. Subjective Subjective Date/Time Seen: 07/06/23 10:40 Interval history: Stent was placed by Dr. Bloom yesterday for pyelonephritis. She feels better. On antibiotics. Exam Const: General: comfortable and no acute distress Objective Data Vital Signs Vital Signs: Vital Signs - 24 hr 07/05/23 11:04 07/05/23 12:27 07/05/23 12:55 Temperature 36.3 C L 36.7 C Pulse Rate 84 95 87 Respiratory Rate 20 18 17 Blood Pressure 120/64 117/82 105/82 Pulse Oximetry 100 98 100 Oxygen Delivery Room Air Room Air Room Air 07/05/23 12:40 07/05/23 13:15 07/05/23 13:30 Temperature 36.4 C 36.4 C Pulse Rate 90 87 90 Respiratory Rate 20 16 16 Blood Pressure 100/64 123/63 109/73 Pulse Oximetry 98 100 98 Oxygen Delivery Room Air 07/05/23 15:00 07/05/23 15:00 07/05/23 16:00 Temperature 36.4 C 36.5 C Pulse Rate 84 82 87 Respiratory Rate 16 16 Blood Pressure 117/70 118/83 Pulse Oximetry 98 99 Oxygen Delivery 07/05/23 21:27 07/05/23 23:41 07/05/23 20:00 Temperature 36.5 C 36.5 C Pulse Rate 88 91 86 Respiratory Rate 20 18 Blood Pressure 110/70 118/70 Pulse Oximetry 99 94 Oxygen Delivery 07/05/23 20:00 07/06/23 05:27 07/06/23 00:00 Temperature 36.4 C Pulse Rate 91 74 90 Respiratory Rate 18 20 Blood Pressure 118/70 Pulse Oximetry 94 98 Oxygen Delivery Room Air 07/06/23 04:00 07/06/23 09:27 Temperature 36.5 C Pulse Rate 80 72 Respiratory Rate 16 Blood Pressure 107/68 Pulse Oximetry 97 Oxygen Delivery Intake/Output Intake/Output: Intake & Output 07/03/23 07/04/23 07/05/23 07/06/23 23:59 23:59 23:59 23:59 Intake Total 50 2820 940 Balance 50 2820 940 Meds/Results Medications: Active Medications Generic Name Dose Route Start Last Admin Trade Name Freq PRN Reason Stop Dose Admin Acetaminophen 1,000 mg 07/05/23 01:13 07/06/23 08:28 Acetaminophen 500 Mg Tablet PO 1,000 mg Q6H PRN Administration Mild Pain (1-3) or Fever Benztropine Mesylate 0.5 mg 07/05/23 01:11 Benztropine Mesylate 0.5 Mg Tablet PO Q8H PRN involuntary movement Buspirone HCl 15 mg 07/05/23 09:00 07/06/23 08:28 Buspirone Hcl 5 Mg Tablet PO 15 mg TID BENEDICTO Administration Chlorpromazine HCl 50 mg 07/05/23 09:00 07/06/23 08:38 Chlorpromazine Hcl 25 Mg Tablet PO Not Given Q12HR BENEDICTO Fentanyl Citrate 25 mcg 07/05/23 11:19 Fentanyl Citrate Inj (*Crx) 100 Mcg/2 Ml Vial IV PUSH Q2M PRN Pain Gabapentin 600 mg 07/05/23 09:00 07/06/23 08:28 Gabapentin 300 Mg Capsule PO 600 mg TID BENEDICTO Administration Hydromorphone HCl 0.5 mg 07/05/23 01:13 07/06/23 08:33 Hydromorphone Hcl Inj (*Crx) 1 Mg/Ml Syr IV PUSH 0.5 mg Q3H PRN Administration Pain Rated 7-10 Ceftriaxone Sodium 1 gm in 50 mls @ 100 mls/hr 07/05/23 20:00 07/05/23 21:32 Rocephin 1 Gm/Ns 50 Ml IVPB 100 mls/hr Q24H BENEDICTO Administration Sodium Chloride 1,000 mls @ 125 mls/hr 07/04/23 19:30 07/06/23 08:27 Normal Saline Iv IV CONT Not Given .Q8H BENEDICTO Ondansetron HCl 4 mg 07/04/23 19:27 07/05/23 09:34 Ondansetron Inj 4 Mg/2 Ml Vial IV PUSH 4 mg Q4H PRN Administration Nausea Prazosin HCl 1 mg 07/05/23 21:00 07/05/23 21:31 Prazosin Hcl 1 Mg Capsule PO 1 mg HS BENEDICTO Administration Sertraline HCl 50 mg 07/05/23 09:00 07/06/23 08:28 Sertraline Hcl 50 Mg Tabl
--- NOTE | 2023-07-06 13:25 | PM.IMPN ---
Progress Note: A&P Assessment and Plan (1) Carcinoma of right ureter: Code(s): C66.1 - Malignant neoplasm of right ureter Status: Acute (2) Pyelonephritis: Code(s): N12 - Tubulo-interstitial nephritis, not specified as acute or chronic Status: Acute (3) Acute hypokalemia: Code(s): E87.6 - Hypokalemia Status: Acute Plan 57F w/ PMH anxiety, bipolar disorder, previous suicide attempt, schizophrenia, depression, COPD, tobacco abuse, carpal tunnel syndrome, migraines, right low grade urothelial carcinoma (06/01) presents with right side abdominal and back pain. Admitted on 07/04 for pyelonephritis. 1) R pyelonephritis/hydronephrosis w/ urothelial carcinomia - urology consulted. she had pyelogram 06/01 but stent not placed 10/11 to psychiatric concerns. 07/05 had right stent placed. - WBC downtredning. ctm. continue ceftriaxone started 07/04, f/u urine cx and tailor appropriately - likely d'c tomorrow. pt okay with that. f/u with Dr. Vanegas for when the right ureterectomy will be done 2) hypokalemia - again low today. replace IV and recheck in AM. check magnesium 3) cont all other home meds and monitor psych status FEN: saline lock IV GI prophylaxis: not indicated DVT prophylaxis: heparing SC Lines: pIV Code Status: Full Code Dispo: stable. likely home tomorrow w/ urology follow up and abx. More than 25 minutes spent on chart review, patient interaction and assessment and plan. Subjective Date/time seen: 07/06/23 13:25 Interval history: NAOE. POD #1 for R ureteral stent placement. daughter is in room. all questions answered. pt has no complaints. pain is subsiding Review of Systems Review of Systems: All systems reviewed & are unremarkable except as noted in HPI and below Exam Const: General: comfortable Eyes: Pupils: Equal, round and reactive pupils present Neck: Neck: supple Resp: Effort & Inspection: normal respiratory effort Auscultation: clear to auscultation bilaterally Cardio: Rate: regular rate Rhythm: regular rhythm GI: GI Palp: Yes Soft to palpation Auscultation: normal bowel sounds Other: complaints of TTP to right flank tap and RUQ palpation but no grimacing Extrem: General: no edema Objective Data Vital Signs Vital Signs: Vital Signs - 24 hr 07/05/23 13:30 07/05/23 15:00 07/05/23 15:00 Temperature 97.6 F 97.6 F 97.7 F Pulse Rate 90 84 82 Respiratory Rate 16 16 16 Blood Pressure 109/73 117/70 118/83 Pulse Oximetry 98 98 99 Oxygen Delivery 07/05/23 16:00 07/05/23 21:27 07/05/23 23:41 Temperature 97.7 F 97.7 F Pulse Rate 87 88 91 Respiratory Rate 20 18 Blood Pressure 110/70 118/70 Pulse Oximetry 99 94 Oxygen Delivery 07/05/23 20:00 07/05/23 20:00 07/06/23 05:27 Temperature 97.6 F Pulse Rate 86 91 74 Respiratory Rate 18 20 Blood Pressure 118/70 Pulse Oximetry 94 98 Oxygen Delivery Room Air 07/06/23 00:00 07/06/23 04:00 07/06/23 09:27 Temperature 97.7 F Pulse Rate 90 80 72 Respiratory Rate 16 Blood Pressure 107/68 Pulse Oximetry 97 Oxygen Delivery 07/06/23 08:30 Temperature Pulse Rate Respiratory Rate Blood Pressure Pulse Oximetry Oxygen Delivery Room Air Intake/Output Intake/Output: Intake & Output 07/03/23 07/04/23 07/05/23 07/06/23 23:59 23:59 23:59 23:59 Intake Total 50 2820 940 Balance 50 2820 940 Meds/Results Medications: Active Medications Generic Name Dose Route Start Last Admin Trade Name Freq PRN Reason Stop Dose Admin Acetaminophen 1,000 mg 07/05/23 01:13 07/06/23 08:28 Acetaminophen 500 Mg Tablet PO 1,000 mg Q6H PRN Administration Mild Pain (1-3) or Fever Benztropine Mesylate 0.5 mg 07/05/23 01:11 Benztropine Mesylate 0.5 Mg Tablet PO Q8H PRN involuntary movement Buspirone HCl 15 mg 07/05/23 09:00 07/06/23 12:27 Buspirone Hcl 5 Mg Tablet PO 15 mg TID BENEDICTO Administration Chlorpromazine HCl 50
[2023-07-06] MEDS: POTASSIUM CHLORIDE INJ 40 MEQ in SODIUM CHLORIDE 0.9% IV 500 ML 130 MEQ IVPB (16:06)
[2023-07-06] MEDS: HEPARIN SODIUM 5,000 UNITS/ML VIAL 5000 UNITS SUB-Q (20:49)
[2023-07-06] MEDS: chlorproMAZINE HCL 25 MG TABLET 50 MG PO (20:49)
[2023-07-06] MEDS: PRAZOSIN HCL 1 MG CAPSULE PO (20:49)
[2023-07-06] MEDS: NICOTINE (*PBKC) 21 MG PATCH 1 PATCH TRANSDERM (20:52)
[2023-07-07] VITALS (8 sets, daily range): BP systolic 120–131; BP diastolic 73–82; PULSE 76–102; RESP 16–20; TEMP 36.4–37.3; O2SAT 96–98
[2023-07-07] MEDS: HYDROmorphone HCL INJ (*CRX) 1 MG/ML SYR 0.5 MG IV PUSH ×3 (05:02→12:59)
[2023-07-07 07:23] LABS: Basophils Percent Auto 0.3 % (0.2-1.2); Eosinophils Absolute Auto 0.1 K/mm3 (0-0.3); Eosinophils Percent Auto 0.5 % (0-4.4); Hematocrit 39.4 % (37.0-47.0); Hemoglobin 12.4 g/dL (12.0-15.0); Immature Granulocyte Absolute 0.09 K/mm3 (0.00-0.031); Immature Granulocyte Percent A 0.7 % (0-0.5); Lymphocytes Absolute Auto 2.18 K/mm3 (0.9-3.2); Lymphocytes Percent Auto 17.3 % (18.3-44.2); Mean Corpuscular HGB Conc 31.5 g/dl (32-36); Mean Corpuscular Hemoglobin 34.2 pg (26-34); Mean Corpuscular Volume 108.5 fl (80-100); Mean Platelet Volume 9.4 fl (7.4-10.4); Monocytes Absolute Auto 1.7 K/mm3 (0.1-0.6); Monocytes Percent Auto 13.1 % (2.6-8.5); Neutrophils Absolute Auto 8.6 K/mm3 (1.3-6.7); Neutrophils Percent Auto 68.1 % (45.5-73.1); Platelet Count Result 390 k/mm3 (150-375); Red Blood Count 3.63 M/mm3 (4.2-5.4); Red Cell Distribution Width 13.8 % (11.5-14.5); White Blood Count 12.6 K/mm3 (4.5-10.0)
[2023-07-07 07:39] LABS: Anion Gap 6 mmol/L (8-16); Blood Urea Nitrogen 9 mg/dL (7-17); Calcium 8.9 mg/dL (8.4-10.2); Carbon Dioxide 29 mmol/L (22-30); Chloride 103 mmol/L (98-107); Estimated CRCL calculation 92 ml/min; Estimated Glomerular Filt Rate > 60; Glucose 91 mg/dL (65-110); Magnesium 1.7 mg/dL (1.6-2.3); Potassium 2.9 mmol/L (3.4-5.0); Sodium 138 mmol/L (137-145)
[2023-07-07] MEDS: busPIRone HCL 5 MG TABLET 15 MG PO ×3 (08:31→16:18)
[2023-07-07] MEDS: POTASSIUM CHLORIDE 20 MEQ ER TABLET 40 MEQ PO (08:31)
[2023-07-07] MEDS: GABAPENTIN 300 MG CAPSULE 600 MG PO ×3 (08:31→16:18)
[2023-07-07] MEDS: HEPARIN SODIUM 5,000 UNITS/ML VIAL 5000 UNITS SUB-Q ×2 (08:32→20:33)
[2023-07-07] MEDS: SERTRALINE HCL 50 MG TABLET PO (08:32)
[2023-07-07] MEDS: ACETAMINOPHEN 500 MG TABLET 1000 MG PO ×2 (08:37→16:19)
[2023-07-07] MEDS: POTASSIUM CHLORIDE INJ 40 MEQ in SODIUM CHLORIDE 0.9% IV 500 ML 130 MEQ IVPB (10:51)
--- NOTE | 2023-07-07 10:59 | WPDUROPN2 ---
Progress Note: A&P Assessment and Plan (1) Carcinoma of right ureter: Code(s): C66.1 - Malignant neoplasm of right ureter Status: Acute Assessment and Plan: will set up for definitive surgery Subjective Subjective Date/Time Seen: 07/07/23 10:59 Interval history: She feels well. US was positive for klebsiella Exam Const: General: comfortable and no acute distress Objective Data Vital Signs Vital Signs: Vital Signs - 24 hr 07/06/23 13:00 07/06/23 15:15 07/06/23 16:00 Temperature 36.4 C 36.7 C 36.4 C L Pulse Rate 82 69 75 Respiratory Rate 16 18 16 Blood Pressure 113/68 134/50 L 123/82 Pulse Oximetry 98 90 91 Oxygen Delivery 07/06/23 17:00 07/06/23 12:00 07/06/23 16:00 Temperature 36.4 C L Pulse Rate 63 81 73 Respiratory Rate 16 Blood Pressure 123/63 Pulse Oximetry 93 Oxygen Delivery 07/06/23 20:00 07/06/23 20:00 07/06/23 20:00 Temperature 36.7 C Pulse Rate 80 80 Respiratory Rate 16 Blood Pressure 105/67 Pulse Oximetry 97 Oxygen Delivery Room Air 07/07/23 00:00 07/07/23 06:00 Temperature 37.3 C Pulse Rate 76 90 Respiratory Rate 20 Blood Pressure 130/73 Pulse Oximetry 98 Oxygen Delivery Intake/Output Intake/Output: Intake & Output 07/04/23 07/05/23 07/06/23 07/07/23 23:59 23:59 23:59 23:59 Intake Total 50 2870 3710 1416 Balance 50 2870 3710 1416 Meds/Results Medications: Active Medications Generic Name Dose Route Start Last Admin Trade Name Freq PRN Reason Stop Dose Admin Acetaminophen 1,000 mg 07/05/23 01:13 07/07/23 08:37 Acetaminophen 500 Mg Tablet PO 1,000 mg Q6H PRN Administration Mild Pain (1-3) or Fever Benztropine Mesylate 0.5 mg 07/05/23 01:11 Benztropine Mesylate 0.5 Mg Tablet PO Q8H PRN involuntary movement Buspirone HCl 15 mg 07/05/23 09:00 07/07/23 08:31 Buspirone Hcl 5 Mg Tablet PO 15 mg TID BENEDICTO Administration Chlorpromazine HCl 50 mg 07/05/23 09:00 07/06/23 20:49 Chlorpromazine Hcl 25 Mg Tablet PO 50 mg Q12HR BENEDICTO Administration Fentanyl Citrate 25 mcg 07/05/23 11:19 Fentanyl Citrate Inj (*Crx) 100 Mcg/2 Ml Vial IV PUSH Q2M PRN Pain Gabapentin 600 mg 07/05/23 09:00 07/07/23 08:31 Gabapentin 300 Mg Capsule PO 600 mg TID BENEDICTO Administration Heparin Sodium (Porcine) 5,000 units 07/06/23 21:00 07/07/23 08:32 Heparin Sodium 5,000 Units/Ml Vial SUB-Q 5,000 units Q12HR BENEDICTO Administration Hydromorphone HCl 0.5 mg 07/05/23 01:13 07/07/23 08:38 Hydromorphone Hcl Inj (*Crx) 1 Mg/Ml Syr IV PUSH 0.5 mg Q3H PRN Administration Pain Rated 7-10 Ceftriaxone Sodium 1 gm in 50 mls @ 100 mls/hr 07/05/23 20:00 07/06/23 21:19 Rocephin 1 Gm/Ns 50 Ml IVPB Infused Q24H BENEDICTO Infusion Sodium Chloride 1,000 mls @ 125 mls/hr 07/04/23 19:30 07/07/23 08:29 Normal Saline Iv IV CONT Not Given .Q8H BENEDICTO Potassium Chloride 40 meq/ 520 mls @ 130 mls/hr 07/07/23 11:00 07/07/23 10:51 Sodium Chloride IVPB 07/07/23 14:59 130 mls/hr ONCE ONE Administration Nicotine 1 patch 07/06/23 18:11 07/06/23 20:52 Nicotine (*Pbkc) 21 Mg Patch TRANSDERM 1 patch QAM PRN Administration Nicotine Cravings Ondansetron HCl 4 mg 07/04/23 19:27 07/05/23 09:34 Ondansetron Inj 4 Mg/2 Ml Vial IV PUSH 4 mg Q4H PRN Administration Nausea Prazosin HCl 1 mg 07/05/23 21:00 07/06/23 20:49 Prazosin Hcl 1 Mg Capsule PO 1 mg HS BENEDICTO Administration Sertraline HCl 50 mg 07/05/23 09:00 07/07/23 08:32 Sertraline Hcl 50 Mg Tablet PO 50 mg DAILY BENEDICTO Administration Tramadol HCl 50 mg 07/05/23 01:13 Tramadol Hcl (*Crx) 50 Mg Tablet PO Q6H PRN Pain Rated 4-6 Radiology Results: ITS Impressions Retrograde Pyelogram 07/05/23 12:42 IMPRESSION: 1. Stricture concerning for malignancy in the distal right ureter which is better appreciated on the prior imaging and wi
[2023-07-07 12:10] LABS: Anion Gap 3 mmol/L (8-16); Blood Urea Nitrogen 9 mg/dL (7-17); Calcium 8.8 mg/dL (8.4-10.2); Carbon Dioxide 29 mmol/L (22-30); Chloride 105 mmol/L (98-107); Estimated CRCL calculation 112 ml/min; Estimated Glomerular Filt Rate > 60; Glucose 100 mg/dL (65-110); Potassium 3.2 mmol/L (3.4-5.0); Sodium 137 mmol/L (137-145)
[2023-07-07] MEDS: NICOTINE (*PBKC) 21 MG PATCH 1 PATCH TRANSDERM (13:00)
--- NOTE | 2023-07-07 14:12 | PM.IMPN ---
Progress Note: A&P Assessment and Plan (1) Carcinoma of right ureter: Code(s): C66.1 - Malignant neoplasm of right ureter Status: Acute (2) Pyelonephritis: Code(s): N12 - Tubulo-interstitial nephritis, not specified as acute or chronic Status: Acute (3) Acute hypokalemia: Code(s): E87.6 - Hypokalemia Status: Acute Plan 57F w/ PMH anxiety, bipolar disorder, previous suicide attempt, schizophrenia, depression, COPD, tobacco abuse, carpal tunnel syndrome, migraines, right low grade urothelial carcinoma (06/01) presents with right side abdominal and back pain. Admitted on 07/04 for pyelonephritis. 1) R pyelonephritis/hydronephrosis w/ urothelial carcinomia - urology consulted. she had pyelogram 06/01 but stent not placed 10/11 to psychiatric concerns. 07/05 had right stent placed. to f/u as outpatient for definitive surgery on right ureter - WBC downtrending. continue ceftriaxone started 07/04, nurse is contacting lab to report sensitivities to cefazolin. she has no PO options now. will hold discharge. 2) hypokalemia - again low today. replace IV and recheck in AM. check magnesium 3) cont all other home meds and monitor psych status FEN: saline lock IV GI prophylaxis: not indicated DVT prophylaxis: heparin SC Lines: pIV Code Status: Full Code Dispo: stable. home when PO abx can be arranged. More than 35 minutes spent on chart review, patient interaction and assessment and plan. Subjective Date/time seen: 07/07/23 14:12 Interval history: NAOE. pain resolved. denies sob Review of Systems Review of Systems: All systems reviewed & are unremarkable except as noted in HPI and below Exam Const: General: comfortable and no acute distress Resp: Effort & Inspection: normal respiratory effort Auscultation: clear to auscultation bilaterally Cardio: Rate: regular rate Rhythm: regular rhythm GI: Inspection: non-distended GI Palp: Yes Soft to palpation and No Tenderness to palpation present (GI) Auscultation: normal bowel sounds Extrem: General: edema Objective Data Vital Signs Vital Signs: Vital Signs - 24 hr 07/06/23 15:15 07/06/23 16:00 07/06/23 17:00 Temperature 98.0 F 97.5 F L 97.5 F L Pulse Rate 69 75 63 Respiratory Rate 18 16 16 Blood Pressure 134/50 L 123/82 123/63 Pulse Oximetry 90 91 93 Oxygen Delivery 07/06/23 16:00 07/06/23 20:00 07/06/23 20:00 Temperature 98.1 F Pulse Rate 73 80 Respiratory Rate 16 Blood Pressure 105/67 Pulse Oximetry 97 Oxygen Delivery Room Air 07/06/23 20:00 07/07/23 00:00 07/07/23 06:00 Temperature 99.2 F Pulse Rate 80 76 90 Respiratory Rate 20 Blood Pressure 130/73 Pulse Oximetry 98 Oxygen Delivery 07/07/23 08:30 07/07/23 14:00 Temperature 97.7 F Pulse Rate 92 Respiratory Rate 16 Blood Pressure 120/77 Pulse Oximetry 96 Oxygen Delivery Room Air Intake/Output Intake/Output: Intake & Output 07/04/23 07/05/23 07/06/23 07/07/23 23:59 23:59 23:59 23:59 Intake Total 50 2870 3710 1656 Balance 50 2870 3710 1656 Meds/Results Medications: Active Medications Generic Name Dose Route Start Last Admin Trade Name Freq PRN Reason Stop Dose Admin Acetaminophen 1,000 mg 07/05/23 01:13 07/07/23 08:37 Acetaminophen 500 Mg Tablet PO 1,000 mg Q6H PRN Administration Mild Pain (1-3) or Fever Benztropine Mesylate 0.5 mg 07/05/23 01:11 Benztropine Mesylate 0.5 Mg Tablet PO Q8H PRN involuntary movement Buspirone HCl 15 mg 07/05/23 09:00 07/07/23 12:55 Buspirone Hcl 5 Mg Tablet PO 15 mg TID BENEDICTO Administration Chlorpromazine HCl 50 mg 07/05/23 09:00 07/06/23 20:49 Chlorpromazine Hcl 25 Mg Tablet PO 50 mg Q12HR BENEDICTO Administration Fentanyl Citrate 25 mcg 07/05/23 11:19 Fentanyl Citrate Inj (*Crx) 100 Mcg/2 Ml Vial IV PUSH Q2M PRN Pain Gabapentin 600 mg 07/05/23 09:00 07/07/23 12:54 Gabapentin 300 Mg Capsule PO
[2023-07-07] MEDS: POTASSIUM CHLORIDE 20 MEQ ER TABLET PO (14:55)
[2023-07-07] MEDS: PRAZOSIN HCL 1 MG CAPSULE PO (20:33)
[2023-07-08] VITALS: PULSE 100
--- NOTE | 2023-07-08 03:10 | PC.NURSE ---
Pt was highly concerned as to why her chlorpromazine HCL (Thorazine Po) 50mg PO Q12HR BENEDICTO was put on hold. Pt states she does not know how she will act without it. Pt has been stable in room and comfortable throughout the night. Pt is also requesting NORCO for another pain reliever due to having concerns of over using Tylenol at home in which she complains of ringing in the ears. Pt states she has not experience ringing in the ears since admission. Continued monitoring.
[2023-07-08 04:00] VITALS: PULSE 94
[2023-07-08] MEDS: ACETAMINOPHEN 500 MG TABLET 1000 MG PO (04:27)
[2023-07-08 06:01] VITALS: BP 127/76; PULSE 99; RESP 18; TEMP 36.4; O2SAT 96
[2023-07-08 06:34] LABS: Basophils Percent Auto 0.3 % (0.2-1.2); Eosinophils Absolute Auto 0.1 K/mm3 (0-0.3); Eosinophils Percent Auto 0.9 % (0-4.4); Hematocrit 40.2 % (37.0-47.0); Hemoglobin 13.1 g/dL (12.0-15.0); Immature Granulocyte Absolute 0.14 K/mm3 (0.00-0.031); Immature Granulocyte Percent A 1.1 % (0-0.5); Lymphocytes Absolute Auto 2.47 K/mm3 (0.9-3.2); Lymphocytes Percent Auto 19.4 % (18.3-44.2); Mean Corpuscular HGB Conc 32.6 g/dl (32-36); Mean Corpuscular Hemoglobin 34.3 pg (26-34); Mean Corpuscular Volume 105.2 fl (80-100); Mean Platelet Volume 9.2 fl (7.4-10.4); Monocytes Absolute Auto 1.9 K/mm3 (0.1-0.6); Monocytes Percent Auto 14.9 % (2.6-8.5); Neutrophils Absolute Auto 8.1 K/mm3 (1.3-6.7); Neutrophils Percent Auto 63.4 % (45.5-73.1); Platelet Count Result 447 k/mm3 (150-375); Red Blood Count 3.82 M/mm3 (4.2-5.4); Red Cell Distribution Width 13.6 % (11.5-14.5); White Blood Count 12.7 K/mm3 (4.5-10.0)
[2023-07-08 06:45] LABS: Anion Gap 4 mmol/L (8-16); Blood Urea Nitrogen 7 mg/dL (7-17); Calcium 9.2 mg/dL (8.4-10.2); Carbon Dioxide 34 mmol/L (22-30); Chloride 99 mmol/L (98-107); Estimated CRCL calculation 112 ml/min; Estimated Glomerular Filt Rate > 60; Glucose 109 mg/dL (65-110); Potassium 3.5 mmol/L (3.4-5.0); Sodium 137 mmol/L (137-145)
--- NOTE | 2023-07-08 07:43 | PM.DS ---
DS: Admitting Diagnosis Discharge Date 07/08/23 Admitting Diagnosis flank pain DS: Discharge Diagnosis Discharge Diagnosis (1) Pyelonephritis: Code(s): N12 - Tubulo-interstitial nephritis, not specified as acute or chronic Status: Acute (2) Carcinoma of right ureter: Code(s): C66.1 - Malignant neoplasm of right ureter Status: Acute (3) Acute hypokalemia: Code(s): E87.6 - Hypokalemia Status: Acute (4) Hydronephrosis: Code(s): N13.30 - Unspecified hydronephrosis Status: Acute DS: Summary Hospital Course Hospital Course: 57F w/ PMH anxiety, bipolar disorder, previous suicide attempt, schizophrenia, depression, COPD, tobacco abuse, carpal tunnel syndrome, migraines, right low grade urothelial carcinoma (06/01) presents with right side flank pain. CT abdomen pelvis revealed right distal ureter dilated to 9-10mm consistent with urothelial carcinoma, partial obstructed with proximal right hydroureteronephrosis and R pyelonephritis. She has a pyelogram in May 2023 which is when the urothelial carcinoma was diagnosed but no stent placed due to psychiatric concerns. This time, on 07/05 she has a stent placed at the stricture by Dr. Bloom. She was then seen by Dr. Vanegas who will handle her definitive management. Pt has an appt with him scheduled for 07/12/23. She was treated with 5 days of ceftriaxone, her flank pain resolved. Hypokalemia was replaced. She will have CBC in 2 days to ensure her white count has resolved completely, although already downtrended greatly. She is discharged home independently in improved condition on 07/08/23 with follow up to Dr. Vanegas and her PCP. Pt aware if she has return of symptoms to return to the ER immediately and she is in agreement with this plan. Time Spent with Patient Time attestation: Total time spent providing and/or coordinating discharge services: Exam Const: General: cooperative and no acute distress Resp: Effort & Inspection: normal respiratory effort Auscultation: clear to auscultation bilaterally Cardio: Rate: regular rate Rhythm: regular rhythm Heart sounds: S1 normal heart sound present and S2 normal heart sound present GI: GI Palp: No abdominal tenderness Auscultation: normal bowel sounds DS: Data Data Completed and Pending Labs on day of discharge: Labs from last 24 hours 07/08/23 07/07/23 07/07/23 06:21 11:45 07:12 WBC 12.7 H 12.6 H RBC 3.82 L 3.63 L Hgb 13.1 12.4 Hct 40.2 39.4 MCV 105.2 H 108.5 H MCH 34.3 H 34.2 H MCHC 32.6 31.5 L RDW 13.6 13.8 Plt Count 447 H 390 H MPV 9.2 9.4 Immature Gran % (Auto) 1.1 H 0.7 H Neut % (Auto) 63.4 68.1 Lymph % (Auto) 19.4 17.3 L [place] % (Auto) 14.9 H 13.1 H Eos % (Auto) 0.9 0.5 Baso % (Auto) 0.3 0.3 Lymph # (Auto) 2.47 2.18 [place] # (Auto) 1.9 H 1.7 H Eos # (Auto) 0.1 0.1 Baso # (Auto) 0.0 0.0 Abs Immat Gran (auto) 0.14 H 0.09 H Absolute Neuts (auto) 8.1 H 8.6 H Absolute Nucleated RBC 0.0 0.0 Nucleated RBC % 0.0 0.0 Sodium 137 137 Potassium 3.5 3.2 L Chloride 99 105 Carbon Dioxide 34 H 29 Anion Gap 4 L 3 L BUN 7 9 Creatinine 0.40 L 0.40 L Estim Creat Clear Calc 112 112 Estimated GFR > 60 > 60 Glucose 109 100 Calcium 9.2 8.8 Preliminary micro results at discharge 07/04/23 19:30 Blood Culture - Preliminary Blood 07/04/23 19:29 Blood Culture - Preliminary Blood Discharge Plan Discharge Attending physician on discharge: Bety Taylor Consulting providers: Mauricio Prieto Discharging Clinician: Bety Taylor Patient Disposition: Home, Self-Care Activity: may shower Diet: regular Patient Instructions: Antibiotic Form, How to Stop Smoking (DC) Stand Alone Forms: General Discharge Information Follow-up/Referrals: Km,Neil Fang MD [Primary Care Provider] - Discharge Medications: Continued ondansetron HCl 4 mg
[2023-07-08 08:00] VITALS: PULSE 99; RESP 18; O2SAT 96
[2023-07-08] MEDS: HEPARIN SODIUM 5,000 UNITS/ML VIAL 5000 UNITS SUB-Q (08:09)
[2023-07-08] MEDS: GABAPENTIN 300 MG CAPSULE 600 MG PO (08:10)
[2023-07-08] MEDS: SERTRALINE HCL 50 MG TABLET PO (08:10)
[2023-07-08] MEDS: busPIRone HCL 5 MG TABLET 15 MG PO (08:10)
[2023-07-08] MEDS: NICOTINE (*PBKC) 21 MG PATCH 1 PATCH TRANSDERM (09:43)
== END 2023-07-08 11:20 | disposition home or self-care (01) ==
LOC: ANHED 18:57 → ANH3MEDSUR 07-05 03:52
PROVIDERS: Urology; Admitting Provider Internal Medicine; Emergency Provider Emergency Medicine; PCP Internal Medicine Gastroenterology; Visit Provider General Practice
PROC: (CPT 52352; principal; 2023-07-05 12:00)
DX: C66.1 Malignant neoplasm of right ureter (principal); N12 Tubulo-interstitial nephritis, not specified as acute or chronic; B96.1 Klebsiella pneumoniae [K. pneumoniae] as the cause of diseases classified elsewhere; N13.30 Unspecified hydronephrosis; B19.20 Unspecified viral hepatitis C without hepatic coma; E87.6 Hypokalemia; E66.3 Overweight; R63.0 Anorexia; Z68.28 Body mass index [BMI] 28.0-28.9, adult; K21.9 Gastro-esophageal reflux disease without esophagitis; F41.9 Anxiety disorder, unspecified; F19.90 Other psychoactive substance use, unspecified, uncomplicated; F31.9 Bipolar disorder, unspecified; G43.909 Migraine, unspecified, not intractable, without status migrainosus; J44.9 Chronic obstructive pulmonary disease, unspecified; F20.9 Schizophrenia, unspecified; R56.9 Unspecified convulsions; F17.210 Nicotine dependence, cigarettes, uncomplicated; Z79.899 Other long term (current) drug therapy
CPT/HCPCS: 52332; 36415; 74178; 74420; 80048; 80053; 81001; 81025; 83605; 83690; 83735; 84145; 85025; 87040; 87077; 87086; 87186; 87804; 96365; 96372; 99285; A9270; C1758; C1769; C2617; G0378; J0696; J1100; J1170; J1644; J2250; J2405; J2704; J3010; J3480; J7030; J7040; J7120; Q9966; Q9967

== ENCOUNTER 2023-08-11 07:34 | Inpatient (IN) | payer MEDICARE, MEDICAID, SELFPAY ==
[2023-08-11] VITALS (35 sets, daily range): BP systolic 115–148; BP diastolic 62–104; PULSE 69–112; RESP 16–20; TEMP 36.4–37.9; O2SAT 94–100; BMI 29.9
--- NOTE | ~2023-08-11 | XR_ITS ---
Portable chest x-ray Comparison: 08/13/2023 Clinical History: Respiratory failure Findings: Endotracheal tube, NG tube, and left-sided PICC line are in satisfactory positions. Modera te left pleural effusion present. Probable left lower lobe atelectasis. Right lung essentially clear. Cardiomediastinal silhouette is stable. Bones and soft tissues are unremarkable. Impression: Moderate left pleural effusion with left lower lobe atelectasis. Correlate for underlying pneumonia. Support tubes, as above. Reviewed, dictated and finalized at location . ODUCTIVE HEALTHCARE ASSISTANT Impression: Moderate left pleural effusion with left lower lobe atelectasis. Correlate for underlying pneumonia. Support tubes, as above.
--- NOTE | ~2023-08-11 | XR_ITS ---
EXAMINATION: XR abdomen gastric tube insert INDICATION: Nasogastric tube insertion TECHNIQUE: Portable AP KUB-NG at 1015 hours COMPARISON: 08/11/2023 FINDINGS: The nasogastric tube is in the stomach. There is a right sided internal ureteral stent. The bowel gas pattern is unremarkable. The visualized lung bases are clear. IMPRESSION: 1. Nasogastric tube in the stomach. Reviewed, dictated and finalized at location B. GER SPORTS
--- NOTE | ~2023-08-11 | XR_ITS ---
EXAMINATION: XR chest 1V portable INDICATION: Respiratory failure TECHNIQUE: Portable AP chest at 0545 hours COMPARISON: 08/16/2023 FINDINGS: The endotracheal tube ends approximately 2.4 cm above the kayla. The nasogastric tube is f ollowed as far as the stomach. Its tip is beyond the inferior margin of the radiograph. A left upper extremity PICC ends with its tip in the distal superior vena cava. Left basilar airspace opacities pe rsist without significant change. A small left pleural effusion is suggested. There is no pneumothora x. The cardiomediastinal silhouette is stable. IMPRESSION: 1. Stable left basilar airspace opacity, consistent with atelectasis versus pneumonia. 2. Possible small left pleural effusion. Reviewed, dictated and finalized at location F. ARCH NUTRITIONIST IMPRESSION: 1. Stable left basilar airspace opacity, consistent with atelectasis versus pne umonia. 2. Possible small left pleural effusion.
--- NOTE | ~2023-08-11 | XR_ITS ---
XR chest 1V portable 08/12/2023 09:44 Indication: Tachycardia Procedure: AP portable chest Comparison: Comparison to multiple prior studies sequentially, with oldest reviewed study dated 05/2020. Findings: NG tube is present, distal tip not well visualized. Cardiomegaly. Left basilar atelectasis. No focal pneumonia, edema, significant effusion or pneumothorax. Impression: 1: Left basilar atelectasis. Reviewed, dictated and finalized at location B. OR PHP DEVELOPER Impression: 1: Left basilar atelectasis.
--- NOTE | ~2023-08-11 | XR_ITS ---
Portable chest x-ray Comparison: 08/18/2023 Clinical History: Respiratory failure Findings: Endotracheal tube, NG tube, and left-sided central venous line are in satisfactory positio ns. Lungs are clear, aside from minimal left pleural effusion. Cardiomediastinal silhouette is stabl e. Bones and soft tissues are unremarkable. Impression: Minimal left pleural effusion. Support tubes, as above. Reviewed, dictated and finalized at location M. IZER Impression: Minimal left pleural effusion. Support tubes, as above.
--- NOTE | ~2023-08-11 | XR_ITS ---
EXAMINATION: XR abdomen obstructive series DATE: 08/13/2023 12:36 INDICATION: Ileus TECHNIQUE: Supine and upright views of the abdomen. FINDINGS: CT dated 08/11/2023 The visualized lung parenchyma is normal.. There are dilated small bowel loops in the left mid abdome n. There is gas throughout the colon. Gas and stool are seen throughout the colon to the level of the rectum. There is no free air. NG tube coiled in the stomach. There is a right internal ureteral darlin nt. IMPRESSION: 1. Dilated small bowel left mid abdomen which may reflect ileus or partial obstruction.. Reviewed, dictated and finalized at location L. TRONIC EQUIPMENT REPAIRMEN IMPRESSION: 1. Dilated small bowel left mid abdomen which may reflect ileus or partial obs truction..
--- NOTE | ~2023-08-11 | XR_ITS ---
EXAMINATION: XR abdomen gastric tube insert DATE: 08/11/2023 13:23 INDICATION: Nasogastric tube placement TECHNIQUE: A supine view of the abdomen and lower chest was obtained for evaluation of feeding tube placement. COMPARISON: None. FINDINGS: Nasogastric tube tip in proximal side port in the body of the stomach. There are multiple mildly dila blossom gas-filled loops of small bowel in the right upper quadrant. Mild left basilar atelectasis. Heart size is normal. IMPRESSION: 1. Nasogastric tube in the stomach. 2. Mildly dilated gas-filled loops of bowel in the right upper quadrant which could represent ileus o r obstruction. Reviewed, dictated and finalized at location A. INE HEEL SEAT LASTER IMPRESSION: 1. Nasogastric tube in the stomach. 2. Mildly dilated gas-filled loops of bowel in the right upper quadrant which c ould represent ileus or obstruction.
--- NOTE | ~2023-08-11 | XR_ITS ---
EXAMINATION: XR chest 1V portable INDICATION: Respiratory failure TECHNIQUE: Portable AP chest at 0518 hours COMPARISON: 08/17/2023 FINDINGS: The endotracheal tube ends approximately 3.9 cm above the kayla. The nasogastric tube is f ollowed as far as the stomach. Its tip is beyond the inferior margin of the radiograph. A left upper extremity PICC ends with its tip in the midsuperior vena cava. Left basilar airspace opacities are st able. There is a probable small left pleural effusion. No pneumothorax is identified. The cardiomedia stinal silhouette is stable. IMPRESSION: 1. Stable left basilar airspace opacity, consistent with atelectasis versus pneumonia. 2. Probable small left pleural effusion. Reviewed, dictated and finalized at location F. TTANCE ATTENDANT IMPRESSION: 1. Stable left basilar airspace opacity, consistent with atelectasis versus pne umonia. 2. Probable small left pleural effusion.
--- NOTE | ~2023-08-11 | XR_ITS ---
Portable chest x-ray Comparison: 08/14/2023 Clinical History: Respiratory failure Findings: Endotracheal tube, NG tube, and left-sided PICC line are in satisfactory positions. There is small left pleural effusion with probable left lower lobe atelectasis. Minimal right basilar hazin ess present. Cardiomediastinal silhouette is stable. Bones and soft tissues are unremarkable. Impression: Small left pleural effusion with probable left lower lobe atelectasis. Correlate for pneumonia. Minimal haziness right lung base, nonspecific. Support tubes, as above. Reviewed, dictated and finalized at location . ERENTIAL TESTER Impression: Small left pleural effusion with probable left lower lobe atelectasis. Correlat e for pneumonia. Minimal haziness right lung base, nonspecific. Support tubes, as above.
--- NOTE | ~2023-08-11 | XR_ITS ---
Portable chest x-ray Comparison: 08/12/2023 Clinical History: Injury Findings: Endotracheal tube is just in the right mainstem bronchus origin. NG tube in satisfactory p osition. Minimal left pleural effusion present with bibasilar pulmonary edema/atelectasis. Cardiomed iastinal silhouette is stable. Bones and soft tissues are unremarkable. Impression: Endotracheal tube tip is just in the right mainstem bronchus origin. Retraction by 4 cm recommended. NG tube in place. Minimal left pleural effusion with bibasilar pulmonary edema/atelectasis. Case reported to Dr. Babcock at the time of this reading. Reviewed, dictated and finalized at location . SHINER Impression: Endotracheal tube tip is just in the right mainstem bronchus origin. Retraction by 4 cm recommended. NG tube in place. Minimal left pleural effusion with bibasilar pulmonary edema/atelectasis. Case reported to Dr. Babcock at the time of this reading.
--- NOTE | ~2023-08-11 | XR_ITS ---
EXAMINATION: CYSTOGRAM DATE: 08/12/2023 09:02 INDICATION: Assess for extravasation post recent bladder surgery TECHNIQUE: Initial airplane electrician radiograph of the pelvis was performed. There was retrograde administration of Omnipaque 350 mixed with saline contrast into patient's existing Rich catheter. Fluoroscopic murphy ges of the pelvis were obtained. A post-void image was also performed. A total of 11 fluoroscopic murphy ges and 2 overhead radiographs were obtained. Fluoroscopy exposure time was 1.1 minutes. FINDINGS: Raw Products Director image demonstrates a Rich catheter in the bladder and a right internal ureteral stent with loo ps formed in the bladder and expected location of the right renal pelvis. Contrast fills the bladder outlining the Rich catheter bulb. Contour abnormality of the bladder which appears tethered and retr acted along the course of the right ureter consistent with the reported recent surgery with likely re section of the distal right ureter and vesicoureteral junction. No evident contrast extravasation. No contrast is seen refluxing proximally on the right ureter or stent. There is however a retrograde ve sicoureteral reflux of a small amount of contrast into the distal left ureter which appears normal in caliber. There has mild extrinsic mass effect upon the lateral wall of the distal left ureter where it crosses a vessel is evident on CT urogram dated 07/04/2023. IMPRESSION: 1. Changes consistent with resection of the distal right ureter and ureterovesicular junction with n o evident extraluminal contrast extravasation. Right internal ureteral stent in expected position. 2. Small amount of retrograde vesicoureteral reflux into the normal-appearing distal left ureter. Reviewed, dictated and finalized at location A. K HANDLER IMPRESSION: 1. Changes consistent with resection of the distal right ureter and ureteroves icular junction with no evident extraluminal contrast extravasation. Right inte rnal ureteral stent in expected position. 2. Small amount of retrograde vesicoureteral reflux into the normal-appearing d istal left ureter.
--- NOTE | ~2023-08-11 | XR_ITS ---
Portable chest x-ray Comparison: 08/15/2023 Clinical History: Respiratory failure Findings: Endotracheal tube, NG tube, and left-sided PICC line are in satisfactory positions. There is retrocardiac airspace consolidation. Right lung clear. Cardiomediastinal silhouette is stable. Michael vi and soft tissues are unremarkable. Impression: Left lower lobe atelectasis versus pneumonia. Support tubes, as above. Reviewed, dictated and finalized at location . STFEEDING EDUCATOR Impression: Left lower lobe atelectasis versus pneumonia. Support tubes, as above.
--- NOTE | ~2023-08-11 | CT_ITS ---
IMPRESSION: 1. Multiple mildly dilated loops of proximal small bowel which gradually tapers distally with no single discrete transition point and would favor postoperativ e ileus over obstruction. 2. Decrease in now mild right hydronephrosis post reported resection of a dista l right ureteral cancer and placement of a right internal ureteral stent and Fo hong catheter. EXAMINATION: CT abdomen pelvis w con DATE: 08/11/2023 09:57 INDICATION: Postoperative abdominal pain TECHNIQUE: Computed tomography (CT) of the abdomen and pelvis was performed with 100 mL Omnipaque-350 intravenous contrast. Automated exposure control and iterative reconstruction technique were employe d. The dose-length product was 724.21 mGy-cm. COMPARISON: 07/04/2023 FINDINGS: Again seen is mild elevation of the left hemidiaphragm with increasing dependent predominant atelecta sis at the bilateral lung bases, left greater than right. Unchanged tiny left pleural effusion. Heart size is normal. No pericardial effusion. Liver, gallbladder, spleen, pancreas and bilateral adrenal glands are normal. There is symmetric bilateral renal enhancement. Significant decrease in now mild r ight hydronephrosis post placement of a left internal ureteral stent with loops formed in the bladder and right renal pelvis. There is decreased now mild right hydronephrosis. Bilateral renal cysts thomas uring up to 1 cm in both kidneys. Rich catheter within the decompressed bladder. There are multiple dilated loops of proximal small bowel measuring up to 4.5 cm in maximal diameter. There is gradual ta pering of the small bowel to normal caliber mid small bowel and relatively decompressed distal small bowel but without a single discrete transition point. Normal appendix. Colon is unremarkable. There i s retroperitoneal stranding in the right pelvis likely related to reported surgery for a distal urete ral cancer. There is a small amount of free fluid scattered throughout the abdomen and pelvis. No abs cess or free intraperitoneal gas. Mild thoracolumbar levocurvature. Moderate to severe lower lumbar s pondylosis with 6 mm anterolisthesis L4 on L5. IMPRESSION: 1. Multiple mildly dilated loops of proximal small bowel which gradually tapers distally with no sing le discrete transition point and would favor postoperative ileus over obstruction. 2. Decrease in now mild right hydronephrosis post reported resection of a distal right ureteral cance r and placement of a right internal ureteral stent and Rich catheter. Reviewed, dictated and finalized at location A. REPATCHER
[2023-08-11] MEDS: SODIUM CHLORIDE 0.9% IV 1,000 ML 999 ML IV CONT ×2 (09:19→12:20)
[2023-08-11] MEDS: ONDANSETRON INJ 4 MG/2 ML VIAL IV PUSH (09:21)
[2023-08-11] MEDS: HYDROmorphone HCL INJ (*CRX) 1 MG/ML SYR IV PUSH (09:21)
[2023-08-11 09:25] LABS: Basophils Percent Auto 0.2 % (0.2-1.2); Eosinophils Percent Auto 0.2 % (0-4.4); Hemoglobin 9.5 g/dL (12.0-15.0); Immature Granulocyte Absolute 0.06 K/mm3 (0.00-0.031); Immature Granulocyte Percent A 0.6 % (0-0.5); Lymphocytes Absolute Auto 0.79 K/mm3 (0.9-3.2); Lymphocytes Percent Auto 7.6 % (18.3-44.2); Mean Corpuscular HGB Conc 31.7 g/dl (32-36); Mean Corpuscular Hemoglobin 34.5 pg (26-34); Mean Corpuscular Volume 109.1 fl (80-100); Monocytes Absolute Auto 1.5 K/mm3 (0.1-0.6); Monocytes Percent Auto 14.9 % (2.6-8.5); Neutrophils Absolute Auto 7.9 K/mm3 (1.3-6.7); Neutrophils Percent Auto 76.5 % (45.5-73.1); Platelet Count Result 393 k/mm3 (150-375); Red Blood Count 2.75 M/mm3 (4.2-5.4); Red Cell Distribution Width 15.8 % (11.5-14.5); White Blood Count 10.3 K/mm3 (4.5-10.0)
[2023-08-11 09:34] LABS: Lactic Acid Reflex 1.4 mmol/L (0.7-2.0); Prothrombin Time 13.2 Seconds (11.1-14.7)
[2023-08-11 09:35] LABS: Alanine Aminotransferase 24 U/L (6-35); Albumin Level 3.4 g/dL (3.5-5.1); Alkaline Phosphatase 94 U/L (38-126); Anion Gap 7 mmol/L (8-16); Aspartate Amino Transferase 45 U/L (14-36); Bilirubin,Total 1.2 mg/dL (0.2-1.3); Blood Urea Nitrogen 9 mg/dL (7-17); Calcium 9.2 mg/dL (8.4-10.2); Carbon Dioxide 28 mmol/L (22-30); Chloride 99 mmol/L (98-107); Estimated CRCL calculation 115 ml/min; Estimated Glomerular Filt Rate > 60; Glucose 166 mg/dL (65-110); Partial Thromboplastin Time 26.8 SECONDS (22.3-36.8); Potassium 3.7 mmol/L (3.4-5.0); Sodium 134 mmol/L (137-145)
[2023-08-11 09:45] LABS: Anisocytosis 1+ (NORMAL); Hypochromasia 1+ (NORMAL); Macrocytosis 1+ (NORMAL); Schistocytes None Seen (NORMAL)
[2023-08-11 09:56] LABS: Appearance Urine Turbid (Clear); Bacteria Urine 4+ /hpf; Bilirubin Urine 1+ (Negative); Blood Urine 3+ (Negative); Color Urine Dark Yellow (Yellow); Glucose Urine UA Negative (Negative); Ketones Urine Trace mg/dL (Negative); Leukocyte Esterase Ur 3+ LEU/UL (Negative); Need Manual Microscopic Reviewed; Nitrate Urine Negative (Negative); Protein Urine 3+ mg/dL (Negative); RBC Urine >100 /hpf (0-2); Specific Grav Ur 1.024 (1.001-1.035); Squamous Epithelial Cell Urine None seen /hpf (Few); WBC Urine >100 /hpf
[2023-08-11 09:57] LABS: Add Urine Microscopic? YES
--- NOTE | 2023-08-11 10:14 | ED.RECABL ---
HPI - Recheck/Abnormal Lab/Rx General Chief Complaint: Recheck/Abnormal Lab/Rx Stated Complaint: post op problems Time Seen by Provider: 08/11/23 08:41 Source: patient, RN notes reviewed and old records reviewed Mode of arrival: ambulatory Limitations: no limitations History of Present Illness HPI narrative: This is a 58 year old female with history of distal right ureter malignancy s/p resection 6 days ago at [facility] by Dr. Santana. She was discharged from the hospital on Saturday. She reports diffuse abdominal pain, distension, constipation , nausea and vomiting since discharge. She reports she has not had bowel movement since saturday. She also reports she has not had flatus. She denies fever or chills. She has hassan catheter in place and she reports she is leaking around catheter. She has been taking oxycodone and she took her last dose last night. Related Data Home Medications Medication Instructions Recorded Confirmed benztropine 2 mg tablet 0.5 mg PO Q8H PRN involuntary 04/18/22 08/11/23 movement prazosin 5 mg capsule 1 mg PO HS 04/18/22 08/11/23 ondansetron HCl 4 mg tablet 4 mg PO Q8H 11/22/22 08/11/23 chlorpromazine 100 mg tablet 50 mg PO Q12H 03/27/23 08/11/23 buspirone 15 mg tablet 15 mg PO TID 03/28/23 08/11/23 gabapentin 300 mg capsule 600 mg PO TID 05/25/23 08/11/23 sertraline 50 mg tablet (Zoloft) 50 mg PO DAILY 06/06/23 08/11/23 Allergies Allergy/AdvReac Type Severity Reaction Status Date / Time grass pollen Allergy Intermediate Hives Verified 06/24/23 13:03 amoxicillin [From Augmentin] Allergy Hives Verified 06/24/23 13:03 asenapine [From Saphris] Allergy Hives Verified 06/24/23 13:03 bacitracin Allergy Rash Verified 06/24/23 13:03 [From Neosporin ([id number])] clavulanic acid Allergy Hives Verified 06/24/23 13:03 [From Augmentin] erythromycin base Allergy Hives Verified 06/24/23 13:03 haloperidol [From Haldol] Allergy Swelling Verified 06/24/23 13:03 of Lip/Tongue/Throat latex Allergy Rash Verified 06/24/23 13:03 neomycin Allergy Rash Verified 06/24/23 13:03 [From Neosporin ([id number])] olanzapine [From Zyprexa] Allergy Swelling Verified 06/24/23 13:03 of Lip/Tongue/Throat polymyxin B Allergy Rash Verified 06/24/23 13:03 [From Neosporin ([id number])] risperidone [From Risperdal] Allergy Hives Verified 06/24/23 13:03 tramadol [From Ultram] Allergy Rash Verified 06/24/23 13:03 ciprofloxacin AdvReac Vomiting Verified 06/24/23 13:03 ibuprofen AdvReac Vomiting Verified 06/24/23 13:03 Steriod AdvReac Agitated Uncoded 06/24/23 13:03 Review of Systems Constitutional: Constitutional: Denies weakness Cardiovascular: Cardiovascular: Denies syncope, Denies rapid heart rate, Denies irregular heart rhythm, Denies leg edema and Denies dyspnea Respiratory: Respiratory: Denies chest congestion, Denies hemoptysis, Denies excessive phlegm production and Denies dyspnea Gastrointestinal: Gastrointestinal: Reports abdominal pain, Reports bloating, Denies hematochezia, Reports constipation, Denies diarrhea, Reports nausea and Reports vomiting Genitourinary: Genitourinary: Denies hematuria and Denies dysuria Musculoskeletal: Musculoskeletal: Denies joint swelling, Denies loss of height and Denies muscle weakness Neurologic: Denies syncope, Denies focal weakness and Denies weakness PMFSH Past Medical History Medical History Ankle fracture, lateral malleolus, closed December 2022 Anxiety Back pain Bipolar mood disorder Carpal tunnel syndrome COPD (chronic obstructive pulmonary disease) Distal radial fracture December 2022 Drug overdose Migraine Overdose of lithium or lithium compound Schizophrenia Seizure Suicide attempt Surgical History Surgical History H/O dilation and curettage H/O foot surgery 2021 X2 H/O tubal
[2023-08-11] MEDS: LORazepam INJ (*CRX) 2 MG/ML VIAL 1 MG IV PUSH (12:50)
[2023-08-11] MEDS: HYDROmorphone HCL INJ (*CRX) 1 MG/ML SYR 0.5 MG IV PUSH ×3 (14:46→22:27)
--- NOTE | 2023-08-11 15:03 | WPDURCON ---
Assessment and Plan Assessment and plan (1) Ileus: Code(s): K56.7 - Ileus, unspecified Status: Acute Assessment and Plan: 1. Agree with hospitalist admission for treatment of ileus. 2. Agree with mIVF and NGT. (2) Carcinoma of right ureter: Code(s): C66.1 - Malignant neoplasm of right ureter Status: Acute Assessment and Plan: 1. Discussed with Dr. Vanegas, plan was for cystogram tomorrow, here at [place] and if negative for leak then catheter removal and trial of void. Urology Consult Note HPI Date Seen: 08/11/23 Requesting Physician: Brett Hillman MD Primary Care Provider: Neil Barbour, Consult Narrative Narrative: Mahnaz Oseguera is a 58 year old female who underwent robotic right distal ureterectomy with reimplantation and right pelvic LN dissection with Dr. Vanegas on 08/05/23. She reports she has had a few small BMs since discharge. Yesterday she began having significant nausea and vomiting. She reports for the past 24 hours she has not had flatus nor a bowel movement. She also has been annoyed by leakage of urine around the catheter and bladder spasms. Discussed with ER nursing who irrigated catheter with easy return of urine, catheter is currently draining well. Review of Systems Constitutional: Constitutional: Reports no additional constitutional complaints Eyes: Eyes: Reports no additional eye complaints ENT: Reports system reviewed and no additional complaints, except as documented Cardiovascular: Cardiovascular: Reports no additional cardiovascular complaints Respiratory: Respiratory: Reports no additional respiratory complaints Gastrointestinal: Gastrointestinal: Reports abdominal pain, Reports bloating, Reports constipation, Reports nausea and Reports vomiting Genitourinary: Genitourinary: Reports as per HPI Musculoskeletal: Musculoskeletal: Reports no additional musculoskeletal complaints Neurologic: Reports system reviewed and no additional complaints, except as documented Psychiatric: Psychiatric: Reports no additional psychiatric complaints PMFSH Past Medical History Medical History Ankle fracture, lateral malleolus, closed December 2022 Anxiety Back pain Bipolar mood disorder Carpal tunnel syndrome COPD (chronic obstructive pulmonary disease) Distal radial fracture December 2022 Drug overdose Migraine Overdose of lithium or lithium compound Schizophrenia Seizure Suicide attempt Surgical History Surgical History H/O dilation and curettage H/O foot surgery 2021 X2 H/O tubal ligation H/O: hysterectomy 2000 History of back surgery 1999 History of kidney surgery History of tonsillectomy Family History Family History Father Alcoholism Grandparent Diabetes mellitus Hypertension Heart disease Mother Kidney disease Grandparent Alcoholism Social History Social History (Updated 08/11/23 @ 10:14 by Joycelyn Clemente MD) Social History: The patient is noted to be single and disabled. Her mother is listed as a durable power of nipple maker for healthcare. She is listed as a full code. Smoking packs per day: 1 Smoking cigarettes per day: 20.0 Years smoked: 47 Smoking pack-years: 47.00 Smoking status: Current every day smoker Tobacco type: cigarettes Second hand tobacco smoke exposure: No Alcohol intake: never Substance use type: painkillers and prescription drug Other substance usage details: something for headaches Last use: 03/25/23 Lack of Transportation: No Lack of Food: Never True Current Housing: I Have Housing Concerned About Future Housing: No Difficulty Paying Gas/Electric Bills: No Difficulty Paying for Meds: No Currently Unemployed: No Education: High School Diploma/GED Difficulty w/ Childcare or Fam
[2023-08-11] MEDS: SODIUM CHLORIDE 0.9% IV 1,000 ML 125 ML IV CONT (17:59)
--- NOTE | 2023-08-11 18:30 | PM.IMHP ---
H&P: HPI History of Present Illness Date/Time: 08/11/23 18:30 Chief Complaint: Abdominal pain. 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 She underwent robotic right distal ureterectomy with reimplantation and right pelvic lymph node dissection per Dr. Vanegas on 08/05/2023 at [facility]. She was discharged home 2 days thereafter and she reports passing a couple of small, hard stool since that time. Yesterday she developed diffuse abdominal discomfort and bloating and she thought perhaps that she was constipated despite the fact that she has been taking stool softeners. She has also had pretty significant nausea and reports having several episodes of nonbloody emesis this morning. CT of the abdomen and pelvis today showed findings suggestive of postoperative ileus and due to ongoing nausea and vomiting an NG tube was inserted. She denies fever, chills, sweats, or hematemesis. Rich catheter has been draining and she has not noticed any blood. Review of Systems Review of Systems: Twelve systems were reviewed and are negative except for as per HPI. [facility] Past Medical History Medical History (Updated 08/11/23 @ 22:38 by Veronica Nelson PA-C) Ankle fracture, lateral malleolus, closed December 2022 Anxiety Bipolar mood disorder Carcinoma of right ureter Chronic obstructive pulmonary disease Distal radial fracture December 2022 Migraine Schizophrenia Seizure Suicide attempt Tobacco dependence Surgical History Surgical History (Updated 08/11/23 @ 22:32 by Veronica Nelson PA-C) H/O dilation and curettage H/O foot surgery 2021 X2 H/O tubal ligation H/O: hysterectomy 2000 History of back surgery 1999 History of kidney surgery History of tonsillectomy History of ureterostomy Family History Family History Father Alcoholism Grandparent Diabetes mellitus Hypertension Heart disease Mother Kidney disease Grandparent Alcoholism Social History Social History (Updated 08/11/23 @ 22:33 by Veronica Nelson PA-C) Social History: Surrogate medical decision maker: Landy Silva, mother. Code status: Full code. Smoking packs per day: 1.5 Smoking cigarettes per day: 30.0 Years smoked: 45 Smoking pack-years: 67.50 Smoking status: Current every day smoker Tobacco type: cigarettes Second hand tobacco smoke exposure: No Alcohol intake: never Substance use: never Substance use type: painkillers and prescription drug Other substance usage details: something for headaches Last use: 03/25/23 Lack of Transportation: No Lack of Food: Never True Current Housing: I Have Housing Concerned About Future Housing: No Difficulty Paying Gas/Electric Bills: No Difficulty Paying for Meds: No Currently Unemployed: No Education: High School Diploma/GED Difficulty w/ Childcare or Family Care: No Living arrangements: with family Additional living arrangements comments: Lives with mother in [place]. Occupation/Education: unemployed Additional occupation/education comments: Disabled. Spiritual care concerns: No Meds Home Medications and Allergies Home Medications Medication Instructions Recorded Confirmed Type benztropine 2 mg tablet 0.5 mg PO Q8H PRN involuntary 04/18/22 08/11/23 History movement prazosin 5 mg capsule 1 mg PO HS 04/18/22 08/11/23 History ondansetron HCl 4 mg tablet 4 mg PO Q8H 11/22/22 08/11/23 History chlorpromazine 100 mg tablet 50 mg PO Q12H 03/27/23 08/11/23 History buspirone 15 mg tablet 15 mg PO TID 03/28/23 08/11/23 History gabapentin 300 mg capsule 600 mg PO TID 05/25/23 08/11/23 History sertraline 50 mg tablet (Zoloft) 50 mg PO MIRA
[2023-08-11] MEDS: LORazepam INJ (*CRX) 2 MG/ML VIAL 0.5 MG IV PUSH (22:31)
[2023-08-12] VITALS (8 sets, daily range): BP systolic 96–117; BP diastolic 60–80; PULSE 110–162; RESP 18–35; TEMP 35.5–37; O2SAT 95–100
[2023-08-12] MEDS: HYDROmorphone HCL INJ (*CRX) 1 MG/ML SYR 0.5 MG IV PUSH ×4 (02:22→15:17)
--- NOTE | 2023-08-12 04:55 | ECG_ITS ---
Measurements Intervals [place] Rate: 157 P: [place]: 0 QRS: 48 QRSD: 106 T: 0 QT: 280 QTc: 453 Interpretive Statements SUPRAVENTRICULAR TACHYCARDIA INCOMPLETE RIGHT BUNDLE BRANCH BLOCK [90+ ms QRS DURATION, TERMINAL R IN V1/V2, 40+ ms S IN I/aVL/V4/V5/V6] ABNORMAL RHYTHM ECG COMPARED TO ECG 05/27/2023 12:43:27 ESSENTIALLY NO DIFFERENCE Electronically Signed On 08-12-2023 15:09:29 KEYBOARDING TEACHER by Mat Jara M.D.
--- NOTE | 2023-08-12 05:25 | PM.EVENT ---
Event Note Event Note Event Note: Nursing staff called to tell me that the patient and his heart rate was in the 150s to 160s at vitals checked. Patient's blood pressure also dropped to the low 100 systolic down from prior 130s to 140s. The patient reports that her heart rate will occasionally go really fast when she is at home but usually stops on its own. She denies any chest pain. She denies any shortness for breath. She is a chronic smoker. Not on beta-blockers. She does report that she drinks significant amounts of Pepsi and fluids at home. Her main complaint currently is that she is thirsty. The patient was caught drinking water from the faucet in the bathroom earlier in the shift. Patient has had approximately 1300 mL out of her NG tube since admission. The patient was on fluids at 75 mL an hour. Patient has 42nd cap refill. Patient does appear intravascularly volume depleted. Will give patient 1 L fluid bolus and increase IV fluids are 50 mL an hour. Patient does not have a history of heart disease or heart failure. I have told nursing staff patient can not have a small cup of ice chips every 8 hours. Patient has been placed on telemetry for close monitoring. EKG was personally reviewed and demonstrated sinus tachycardia. I requested stat labs as patient's hemoglobin did drop significantly yesterday compared to labs from June the patient may benefit from blood transfusion. 30 minute spent in critical care activities. Due to a high probability of clinically significant, life threatening deterioration, the patient required my highest level of preparedness to intervene emergently and I personally spent this critical care time directly and personally managing the patient. This critical care time included obtaining a history; examining the patient; pulse oximetry; ordering and review of studies; arranging urgent treatment with development of a management plan; evaluation of patient's response to treatment; frequent reassessment; and discussions with other providers. It was exclusive of separately billable procedures and treating other patients and teaching time. Please see Assessment and Plan section and the rest of the note for further information on patient assessment and treatment.
[2023-08-12] MEDS: SODIUM CHLORIDE 0.9% IV 1,000 ML 999 ML IV CONT ×2 (05:37→07:26)
[2023-08-12] MEDS: SODIUM CHLORIDE 0.9% IV 1,000 ML 150 ML IV CONT ×2 (05:38→17:23)
[2023-08-12] MEDS: LORazepam INJ (*CRX) 2 MG/ML VIAL 0.5 MG IV PUSH ×3 (06:06→17:23)
[2023-08-12 06:16] LABS: Hematocrit 27.8 % (37.0-47.0); Hemoglobin 8.8 g/dL (12.0-15.0); Mean Corpuscular HGB Conc 31.7 g/dl (32-36); Mean Corpuscular Hemoglobin 35.1 pg (26-34); Mean Corpuscular Volume 110.8 fl (80-100); Mean Platelet Volume 9.1 fl (7.4-10.4); Platelet Count Result 407 k/mm3 (150-375); Red Blood Count 2.51 M/mm3 (4.2-5.4); Red Cell Distribution Width 16.2 % (11.5-14.5); White Blood Count 8.9 K/mm3 (4.5-10.0)
[2023-08-12 06:27] LABS: Lactic Acid Reflex 1.5 mmol/L (0.7-2.0)
[2023-08-12 07:17] LABS: Iron 27 ug/dL (37-170)
[2023-08-12 07:22] LABS: Alanine Aminotransferase 20 U/L (6-35); Albumin Level 3.2 g/dL (3.5-5.1); Alkaline Phosphatase 87 U/L (38-126); Aspartate Amino Transferase 25 U/L (14-36); Blood Urea Nitrogen 9 mg/dL (7-17); Calcium 8.4 mg/dL (8.4-10.2); Carbon Dioxide 28 mmol/L (22-30); Chloride 104 mmol/L (98-107); Estimated CRCL calculation 118 ml/min; Estimated Glomerular Filt Rate > 60
[2023-08-12 07:23] LABS: Anion Gap 7 mmol/L (8-16); Bilirubin,Total 0.9 mg/dL (0.2-1.3); Glucose 123 mg/dL (65-110); Magnesium 1.8 mg/dL (1.6-2.3); Potassium 3.3 mmol/L (3.4-5.0); Sodium 139 mmol/L (137-145)
[2023-08-12 07:26] LABS: Percent Iron Saturation 10 % (20-50)
[2023-08-12 07:38] LABS: Band Neutrophils Percent 4 % (0-6); Lymphocytes Absolute Manual 1.69 K/mm3 (1.1-4.5); Monocytes Absolute Manual 1.51 K/mm3 (0.1-0.90); Monocytes Percent Manual 17 % (3-9); Neutrophils Absolute Manual 5.69 K/mm3 (1.7-7.2); Neutrophils Percent Manual 60 % (46-73); Platelet Estimate Increased (Adequate); Total Cells Counted 100
[2023-08-12 07:39] LABS: Hypochromasia 1+ (NORMAL); Macrocytosis 1+ (NORMAL); Schistocytes None Seen (NORMAL)
[2023-08-12 08:11] LABS: Folic Acid 18.6 ng/mL (2.76->20)
[2023-08-12] MEDS: POTASSIUM CHLORIDE INJ 40 MEQ in SODIUM CHLORIDE 0.9% IV 500 ML 130 MEQ IVPB (09:12)
[2023-08-12] MEDS: METOPROLOL TARTRATE INJ 5 MG/5 ML VIAL IV PUSH (09:59)
--- NOTE | 2023-08-12 10:01 | PM.CNGS ---
Assessment and Plan Assessment and plan (1) Postoperative ileus: Code(s): K91.89 - Other postprocedural complications and disorders of digestive system; K56.7 - Ileus, unspecified Status: Acute Assessment and Plan: Likely an ileus. No evidence of a high-grade small bowel obstruction. No diffuse peritoneal signs. Continue NG tube decompression, bowel rest, and IV fluids. Once her heart rate is stabilized and she is able, discussed increasing activity and walking. 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 Urology following. (3) Chronic obstructive pulmonary disease: Code(s): J44.9 - Chronic obstructive pulmonary disease, unspecified Status: Acute (4) Tobacco dependence: Code(s): F17.200 - Nicotine dependence, unspecified, uncomplicated Status: Acute (5) Psychiatric illness: Code(s): F99 - Mental disorder, not otherwise specified Status: Acute Plan I have discussed the patient's case and plan of care with Dr. Gary. Thank you for allowing us to see the patient in consultation and we will continue to follow along with you. History of Present Illness Consult details Consult date: 08/12/23 Reason for consult: other (Ileus vs small bowel obstruction) Requesting physician: Joycelyn Clemente MD Narrative: This is a 58-year-old woman who we have been asked to see in surgical consultation for ileus versus small-bowel obstruction. She underwent robotic right distal ureterectomy with reimplantation and right pelvic lymph node dissection by Dr. Vanegas on 08/05/2023. She reports being fairly sedentary at home and not ?moving as much as she should.? She had had a few very small hard bowel movements since surgery. She then developed nausea, vomiting, and bloating 2 days ago. She developed more abdominal pain than she was having with her incisions. She then presented to the ER for evaluation. Labs significant for white blood cell count 79065, hemoglobin 9.5, hematocrit 30, platelets 393. CT scan of the abdomen and pelvis showed multiple mildly dilated loops of proximal small bowel which gradually taper distally without discrete transition point, which would favor postoperative ileus over obstruction. Also decrease and now mild right hydronephrosis post reported resection of distal right ureteral cancer and placement of right internal ureteral stent and Rich catheter. She was admitted to the hospitalist. She had an NG tube placed that had about 1400 cc out since placement. After admission, the patient was found to be tachycardic with her heart rate in the 150s to 160s. She was given 1 L IV fluid bolus and her maintenance fluids were increased. She was moved to ICU as an IMU overflow patient. She is seen this morning in the ICU. She feels anxious. Her abdominal pain and nausea have improved, but still feels bloated. She is still complaining of some diffuse abdominal pain. Denies any flatus today. Her last bowel movement was a small one last night. She had a cystogram this morning that showed no extraluminal extravasation. Review of Systems Review of Systems: All systems reviewed & are unremarkable except as noted in HPI and below PMFSH Past Medical History Medical History Ankle fracture, lateral malleolus, closed December 2022 Anxiety Bipolar mood disorder Carcinoma of right ureter Chronic obstructive pulmonary disease Distal radial fracture December 2022 Migraine Schizophrenia Seizure Suicide attempt Tobacco dependence Surgical History Surgical History H/O dilation and curettage H/O foot surgery 2021 X2 H/O tubal ligation H/O: hysterectomy 2000 History of back surgery 20
[2023-08-12] MEDS: BISACODYL 10 MG SUPPOSITORY RECTAL (12:52)
[2023-08-12] MEDS: IRON SUCROSE COMPLEX 500 MG in SODIUM CHLORIDE 0.9% IV 250 ML 78.57 MG IVPB (12:53)
--- NOTE | 2023-08-12 14:32 | WPDUROPN2 ---
Progress Note: A&P Assessment and Plan (1) Carcinoma of right ureter: Code(s): C66.1 - Malignant neoplasm of right ureter Status: Acute Assessment and Plan: Will remove Rich catheter today a cystogram negative (2) Postoperative ileus: Code(s): K91.89 - Other postprocedural complications and disorders of digestive system; K56.7 - Ileus, unspecified Status: Acute Assessment and Plan: Being followed by General surgery Subjective Subjective Date/Time Seen: 08/12/23 14:32 Interval history: Has been seen by General surgery. The plan is conservative management for her postoperative ileus. She is tolerating NG-tube. Cystogram reviewed. No extravasation. Will remove Rich today. She is on antibiotic He had episode of tachycardia. There was no IMU beds available. That is why she is in the ICU. Exam Narrative: Abdomen soft. Mild distention. NG tube in place. Rich catheter draining with clear urine Objective Data Vital Signs Vital Signs: Vital Signs - 24 hr 08/11/23 15:00 08/11/23 20:25 08/11/23 20:00 Temperature 100.2 F H 99.1 F Pulse Rate 112 H 106 H Respiratory Rate 16 18 Blood Pressure 131/80 138/72 Pulse Oximetry 97 98 Oxygen Delivery Room Air 08/12/23 04:54 08/12/23 06:39 08/12/23 09:59 Temperature 96 F L Pulse Rate 162 H 152 H 152 H Respiratory Rate 18 Blood Pressure 103/68 97/80 L Pulse Oximetry 99 Oxygen Delivery 08/12/23 08:00 08/12/23 08:00 08/12/23 08:00 Temperature 98.4 F Pulse Rate 144 H 144 H 144 H Respiratory Rate 35 H 35 H Blood Pressure 96/70 L Pulse Oximetry 99 99 Oxygen Delivery Room Air 08/12/23 12:00 08/12/23 12:00 08/12/23 12:00 Temperature 98.6 F Pulse Rate 111 H 111 H 111 H Respiratory Rate 35 H 22 H Blood Pressure 105/64 Pulse Oximetry 95 95 Oxygen Delivery Room Air Intake/Output Intake/Output: Intake & Output 08/09/23 08/10/23 08/11/23 08/12/23 23:59 23:59 23:59 23:59 Intake Total 2050 1950 Output Total 1350 1300 Balance 700 650 Meds/Results Medications: Active Medications Generic Name Dose Route Start Last Admin Trade Name Freq PRN Reason Stop Dose Admin Hydromorphone HCl 0.5 mg 08/11/23 12:36 08/12/23 11:29 Hydromorphone Hcl Inj (*Crx) 1 Mg/Ml Syr IV PUSH 0.5 mg Q4H PRN Administration Pain Rated 7-10 Sodium Chloride 1,000 mls @ 150 mls/hr 08/11/23 12:40 08/12/23 05:38 Normal Saline Iv IV CONT 150 mls/hr .Q6H40M BENEDICTO Administration Ceftriaxone Sodium 1 gm in 50 mls @ 100 mls/hr 08/11/23 23:00 08/11/23 23:49 Rocephin 1 Gm/Ns 50 Ml IVPB Infused Q24H BENEDICTO Infusion Iron Sucrose 500 mg/ Sodium 275 mls @ 78.571 mls/hr 08/12/23 12:00 08/12/23 12:53 Chloride IVPB 08/12/23 15:29 78.57 mls/hr ONCE ONE Administration Lorazepam 0.5 mg 08/11/23 22:23 08/12/23 09:55 Lorazepam Inj (*Crx) 2 Mg/Ml Vial IV PUSH 0.5 mg Q8H PRN Administration Anxiety Ondansetron HCl 4 mg 08/11/23 12:36 Ondansetron Inj 4 Mg/2 Ml Vial IV PUSH Q4H PRN Nausea Radiology Results: ITS Impressions Abdomen/Pelvis CT 08/11/23 10:13 IMPRESSION: 1. Multiple mildly dilated loops of proximal small bowel which gradually tapers distally with no single discrete transition point and would favor postoperative ileus over obstruction. 2. Decrease in now mild right hydronephrosis post reported resection of a distal right ureteral cancer and placement of a right internal ureteral stent and Rich catheter. Abdomen X-Ray 08/11/23 13:31 IMPRESSION: 1. Nasogastric tube in the stomach. 2. Mildly dilated gas-filled loops of bowel in the right upper quadrant which could represent ileus or obstruction. Cystogram 08/12/23 09:29 IMPRESSION: 1. Changes consistent with resection of the distal right ureter and ureterovesicular junction with no evident extraluminal contrast extravasation. Right internal ureteral stent in exp
--- NOTE | 2023-08-12 16:54 | PM.CNCAR ---
Assessment and Plan Assessment and plan (1) Atrial tachycardia: Code(s): I47.1 - Supraventricular tachycardia Status: Acute Plan This is a 58-year-old woman who has a history of supraventricular tachycardia. She has has this arrhythmia documented in the past when my partner saw her for the same reason in March of this year. Please refer to his note for those details. At that time she had a unremarkable echocardiogram done. Her ECG when she is in sinus rhythm looks otherwise unremarkable. She does do respond reasonably well to a I intravenous dose of metoprolol. I would recommend starting metoprolol succinate 25 mg daily when she is no longer NPO. This is not an arrhythmia that needs to be treated otherwise at this time and it does not require her to be in the intensive care unit or IMU. Will follow with you and start low-dose beta-sarah when she is no longer NPO. Mat Jara MD [facility] History of Present Illness History of Present Illness Consult date/time: 08/12/23 16:54 Reason For Visit: postoperative ileus Narrative: This is a 58-year-old woman I am seeing at the request of the hospitalist because of supraventricular tachycardia. The patient is unknown to me prior to this encounter. She is in the hospital here at [place] because of what appears to be a postoperative ileus following surgery for a ureteral malignancy at [facility] within the last week or so. She came into the hospital with some abdominal pain was been seen by the urologist as well as by the surgical team in appears to be a improving from a postop ileus and with conservative measures she is about ice chips now but still has NG tube suction she feels relatively well otherwise. This morning the patient was noted to have a narrow QRS regular tachycardia with a heart rate of 160. She was unaware of this she was for some reason put in the ICU because of this arrhythmia and we have been consulted to see her. She was given some metoprolol intravenously which seem to improve her rhythm. She states this has happened in the past as well but when it happens she is not aware of and in the sense of palpitations she has no history of chest pain orthopnea PND or edema. She does have a history of chronic lung disease with previous history of smoking which she quit a few years ago. She said she smoked from childhood until she was in her 50s. She also has a history of bipolar disorder. She is currently in sinus rhythm and does not have any active complaints. Review of Systems Constitutional: Constitutional: Reports no additional constitutional complaints Eyes: Eyes: Reports no additional eye complaints ENT: Reports system reviewed and no additional complaints, except as documented Cardiovascular: Cardiovascular: Reports no additional cardiovascular complaints Respiratory: Respiratory: Reports dyspnea on exertion Gastrointestinal: Gastrointestinal: Reports as per HPI and Reports abdominal pain Musculoskeletal: Musculoskeletal: Reports no additional musculoskeletal complaints Integumentary/Breasts: Skin/Breast: Reports system reviewed and no additional complaints, except as docu Neurologic: Comments: Alert and oriented x3 Psychiatric: Psychiatric: Reports as per HPI Endocrine: Endocrine: Reports no additional endocrine complaints Hematologic/Lymphatic: Hematologic/Lymphatic: Reports no additional hematologic/lymphatic complaints Allergic/Immunologic: Allergic/Immunologic: Reports no additional allergic/immunologic complaints PMFSH Past Medical History Medical History Ankle fracture, lateral malleolus, closed December 2022 Anxiety Bipolar mood disorder Carcinoma of right ureter Chronic obstructive pulmonary disease Distal radial fracture December 2022 Migraine Schizophrenia Seizure Suicide attempt Tobacco dependence Surgical History Surgical History (Reviewed 08/12/23
[2023-08-12] MEDS: LORazepam INJ (*CRX) 2 MG/ML VIAL 1 MG IV PUSH ×2 (21:35→21:48)
[2023-08-13] VITALS (40 sets, daily range): BP systolic 100–154; BP diastolic 69–86; PULSE 43–122; RESP 20–100; TEMP 36.2–37.4; O2SAT 96–100
[2023-08-13] MEDS: dexmedeTOMIDine 400 MCG/100 ML 400 MCG/100 ML BAG 27.3 MCG IV CONT ×3 (00:27→13:07)
--- NOTE | 2023-08-13 01:18 | PC.NURSE ---
pt confused pulled out ng tube
[2023-08-13] MEDS: LORazepam INJ (*CRX) 2 MG/ML VIAL 0.5 MG IV PUSH ×2 (03:15→13:55)
[2023-08-13] MEDS: SODIUM CHLORIDE 0.9% IV 1,000 ML 150 ML IV CONT ×2 (04:26→13:33)
[2023-08-13 04:42] LABS: Basophils Percent Auto 0.1 % (0.2-1.2); Eosinophils Percent Auto 0.2 % (0-4.4); Hematocrit 25.5 % (37.0-47.0); Hemoglobin 7.9 g/dL (12.0-15.0); Immature Granulocyte Absolute 0.06 K/mm3 (0.00-0.031); Immature Granulocyte Percent A 0.7 % (0-0.5); Lymphocytes Absolute Auto 0.83 K/mm3 (0.9-3.2); Mean Corpuscular Hemoglobin 35.1 pg (26-34); Mean Corpuscular Volume 113.3 fl (80-100); Mean Platelet Volume 9.1 fl (7.4-10.4); Monocytes Absolute Auto 2.3 K/mm3 (0.1-0.6); Monocytes Percent Auto 27.9 % (2.6-8.5); Neutrophils Absolute Auto 5.1 K/mm3 (1.3-6.7); Neutrophils Percent Auto 61.1 % (45.5-73.1); Nucleated Red Blood Cells Absolute Auto 0.1 K/mm3 (0.0-0.012); Platelet Count Result 377 k/mm3 (150-375); Red Blood Count 2.25 M/mm3 (4.2-5.4); Red Cell Distribution Width 16.8 % (11.5-14.5); White Blood Count 8.3 K/mm3 (4.5-10.0)
[2023-08-13 04:53] LABS: Anion Gap 5 mmol/L (8-16); Blood Urea Nitrogen 11 mg/dL (7-17); Calcium 8.2 mg/dL (8.4-10.2); Carbon Dioxide 31 mmol/L (22-30); Chloride 108 mmol/L (98-107); Estimated CRCL calculation 97 ml/min; Estimated Glomerular Filt Rate > 60; Glucose 122 mg/dL (65-110); Lipase 11 U/L (23-300); Phosphorus 2.7 mg/dL (2.5-4.5); Potassium 3.1 mmol/L (3.4-5.0); Sodium 144 mmol/L (137-145)
[2023-08-13 05:21] LABS: Anisocytosis 2+ (NORMAL); Macrocytosis 2+ (NORMAL)
[2023-08-13 05:22] LABS: Hypochromasia 1+ (NORMAL)
[2023-08-13 05:23] LABS: Schistocytes None Seen (NORMAL)
--- NOTE | 2023-08-13 06:36 | PCCARD ---
CANCELLING EKG ORDERED AT 9:30, THE PATIENT REFUSED. HER RN (JEANNE) WAS PRESENT FOR NON-CONSENT
[2023-08-13] MEDS: POTASSIUM CHLORIDE INJ 40 MEQ in SODIUM CHLORIDE 0.9% IV 500 ML 130 MEQ IVPB (08:36)
[2023-08-13] MEDS: LORazepam INJ (*CRX) 2 MG/ML VIAL IV PUSH (09:21)
[2023-08-13] MEDS: ETOMIDATE 20 MG/10 ML AMPUL IV PUSH (12:09)
[2023-08-13] MEDS: ROCURONIUM BROMIDE 50 MG/5 ML VIAL IV PUSH (12:10)
[2023-08-13] MEDS: PROPOFOL IV EMULSION 100 ML 2.18 MG IV CONT (12:17)
--- NOTE | 2023-08-13 12:17 | PM.PNGS ---
Progress Note: A&P Assessment and Plan (1) Postoperative ileus: Code(s): K91.89 - Other postprocedural complications and disorders of digestive system; K56.7 - Ileus, unspecified Status: Acute Assessment and Plan: Patient has become combative, agitated, and is refusing some care. She is being intubated today. NG or OG will be placed once intubated. She will stay NPO for now and we will continue to follow. Continue ICU management. 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 Urology following. (3) Psychiatric illness: Code(s): F99 - Mental disorder, not otherwise specified Status: Acute Plan I have discussed the patient's case and plan of care with Dr. Gary. Subjective Subjective Date/Time Seen: 08/13/23 12:17 Interval history: Patient now ICU status. She became more combative and agitated since seen yesterday.She reports abdominal pain and nausea, but no vomiting. Had a BM yesterday. She is being noncompliant and refusing tests ordered today such as her x-rays and EKG. She pulled her NG tube out multiple times and is now in soft restraints. She was also started on a Precedex drip due to being so combative. Her mother is at the bedside. Cash Register Repairer plans to intubated patient today. Review of Systems Review of Systems: ROS unobtainable: Yes unobtainable due to mental status Exam Const: General: other (lethargic on precedex drip, agitated when aroused) GI: Inspection: other (mildly distended) GI Palp: Yes Soft to palpation, No Tenderness to palpation present (GI) and No Guarding due to palpation present (GI) Auscultation: normal bowel sounds Other: Incisions dry and glue intact, LLQ gauze dressing dry and intact with surrounding ecchymosis noted on the left abdomen extending laterally towards the flank Objective Data Vital Signs Vital Signs: Vital Signs - 24 hr 08/12/23 16:00 08/12/23 16:00 08/12/23 16:00 Temperature 98.2 F Pulse Rate 111 H 112 H 112 H Respiratory Rate 20 19 Blood Pressure 113/66 Pulse Oximetry 100 98 Oxygen Delivery Room Air Oxygen Flow Rate 08/12/23 18:00 08/12/23 20:00 08/12/23 20:00 Temperature 98 F Pulse Rate 112 H 110 H 117 H Respiratory Rate 23 H Blood Pressure 117/60 Pulse Oximetry 99 Oxygen Delivery Oxygen Flow Rate 08/13/23 00:27 08/13/23 00:00 08/13/23 00:00 Temperature Pulse Rate 84 84 84 Respiratory Rate 24 H 24 H Blood Pressure Pulse Oximetry 99 Oxygen Delivery Nasal Cannula Oxygen Flow Rate 2 08/13/23 00:00 08/13/23 02:00 08/13/23 04:00 Temperature 98.2 F Pulse Rate 84 84 82 Respiratory Rate 22 H Blood Pressure 100/69 Pulse Oximetry 96 Oxygen Delivery Oxygen Flow Rate 08/13/23 04:00 08/13/23 04:00 08/13/23 04:07 Temperature 97.2 F L Pulse Rate 74 75 Respiratory Rate 22 H 27 H 24 H Blood Pressure 121/74 Pulse Oximetry 100 98 Oxygen Delivery Nasal Cannula Oxygen Flow Rate 2 08/13/23 07:49 08/13/23 11:20 08/13/23 10:00 Temperature Pulse Rate 75 56 L 53 L Respiratory Rate 27 H 27 H Blood Pressure Pulse Oximetry Oxygen Delivery Oxygen Flow Rate 08/13/23 08:00 08/13/23 08:00 Temperature Pulse Rate 92 53 L Respiratory Rate 100 H 100 H Blood Pressure 108/76 Pulse Oximetry 99 99 Oxygen Delivery Nasal Cannula Oxygen Flow Rate 2 Intake/Output Intake/Output: Intake & Output 08/10/23 08/11/23 08/12/23 08/13/23 23:59 23:59 23:59 23:59 Intake Total 2050 3190 1200 Output Total 1350 3300 Balance 700 -110 1200 Meds/Results Medications: Active Medications Generic Name Dose Route Start Last Admin Trade Name Freq PRN Reason Stop Dose Admin Sodium Chloride 1,000 mls @ 75 mls/hr 08/11/23 12:40 08/13/23 04:28
--- NOTE | 2023-08-13 12:17 | WPDPROCEDUR ---
Procedures Intubation Intubation Date: 08/13/23 Intubation Time: 12:17 Consent: Consent was obtained from the patient's mother after discussing and explaining to her the rationale for intubating the patient. The mother was agreeable and consented to the procedure A pre-procedural Time-Out was completed immediately before starting the procedure and confirmed: Patient Identification, Site, Procedure, Patient Position and the Availability of Requisite Equipment: Yes Sedative: etomidate Paralytic: rocuronium Laryngoscope: fiber optic video scope Assist device used: fiber optic device ET tube size: 7.5 Tube secured depth (cm): 23 Tube secured location: lips Tube placement confirmation: visualized tube passing through cords, equal breath sounds bilaterally, no breath sounds over epigastrium and confirmation by capnometry Patient tolerated procedure: well Intubation complications: none
[2023-08-13 12:30] LABS: Triglycerides 119 mg/dL (<150)
--- NOTE | 2023-08-13 12:41 | WPDCNINT ---
Assessment and Plan Assessment and plan (1) Encephalopathy: Code(s): G93.40 - Encephalopathy, unspecified Status: Acute Assessment and Plan: Patient with, combative behavior, agitation, refusing for tests and radiology, harm to herself and to others -could be related to hypoxia, ileus, electrolyte imbalance, underlying psych illness and mood disorder -patient was on Precedex infusion 1.5 mcg, with no change in her behavior -unable to give any oral medications as she is NPO due to ileus -allergic to Haldol and Zyprexa (2) Acute respiratory failure: Code(s): J96.00 - Acute respiratory failure, unspecified whether with hypoxia or hypercapnia Status: Acute Assessment and Plan: Intubated for airway protection, also from protection to home to herself and others -this will also enable us to insert a NG tube for her ileus/obstruction -continue CMV mode of ventilation, peep of 5, 50% FiO2, maintain O2 sats > 92% -sedated with propofol infusion, maintain RASS of 0 to -2, daily sedation vacation (3) Ileus: Code(s): K56.7 - Ileus, unspecified Status: Acute Assessment and Plan: 08/13: Abdominal x-ray shows ?Dilated small bowel left mid abdomen which may reflect ileus or partial obstruction.. -NG tube to suction -surgery following the patient (4) Hypokalemia: Code(s): E87.6 - Hypokalemia Status: Acute Assessment and Plan: Hypokalemia also cause ileus S of late replace potassium (5) SVT (supraventricular tachycardia): Code(s): I47.10 - Supraventricular tachycardia, unspecified Status: Acute Assessment and Plan: Patient went into SVT on this hospital stay -appreciate cardiology evaluation recommendation -recommended metoprolol once she starts taking p.o. (6) Carcinoma of right ureter: Code(s): C66.1 - Malignant neoplasm of right ureter Status: Acute Assessment and Plan: recently underwent robotic right distal ureterectomy with reimplantation and right pelvic lymph node dissection per Dr. Vanegas on 08/05/2023 at [facility] for her ureter malignancy (7) Bipolar mood disorder: Code(s): F31.9 - Bipolar disorder, unspecified Status: Acute Assessment and Plan: Patient is on buspirone, gabapentin, Zoloft. Currently on hold as patient is NPO due to ileus/partial obstruction Plan DVT prophylaxis: Heparin SQ Stress ulcer prophylaxis: Protonix Nutrition: Will start tube feeds Code Status: Full code Critical Care Time Spent: 51 minutes Due to a high probability of clinically significant, life threatening deterioration, the patient required my highest level of preparedness to intervene emergently and I personally spent this critical care time directly and personally managing the patient. This critical care time included obtaining a history; examining the patient; pulse oximetry; ordering and review of studies; arranging urgent treatment with development of a management plan; evaluation of patient's response to treatment; frequent reassessment; and discussions with other providers. It was exclusive of separately billable procedures and treating other patients and teaching time. Please see Assessment and Plan section and the rest of the note for further information on patient assessment and treatment This dictation may have been done utilizing a voice recognition system. Attempts have been made to correct errors. However, there may be uncorrected grammatical, spelling, and recognitions errors present. Senior Portfolio Analyst Consult Note Consult date: 08/13/23 Reason for consult: Encephalopathy, agitation/combative, refusing tests, radiology, patient pulling at lines, tubes, requiring Precedex infusion HPI: Mahnaz Oseguera is a 58 year old female anxiety, bipolar disorder, carcinoma of the right ureter, COPD, migraine, schizophrenia, seizures, tobacco dependence, suicide attempt, recently underwent robotic right distal ureter
[2023-08-13] MEDS: LIDOCAINE HCL 1% PF INJ 5 ML VIAL INFILTRATE (12:45)
[2023-08-13] MEDS: MINERAL OIL/WHITE PETROLATUM OINTMENT 1 APPLIC EACH EYE ×2 (13:06→19:35)
[2023-08-13] MEDS: RAPID SEQUENCE INTUBATION KIT 1 EACH (13:33)
[2023-08-13] MEDS: KCL 40 MEQ/WATER 100 ML 100 ML 25 ML IVPB (13:57)
[2023-08-13] MEDS: PANTOPRAZOLE SODIUM IV 40 MG VIAL IV PUSH (13:57)
[2023-08-13] MEDS: MIDAZOLAM 100MG/NS 100ML(*CRX) 100 MG/100 ML BAG IV CONT (15:00)
[2023-08-13 15:37] LABS: Base Excess ABG 3.7 mEq/l (+/-2.0); Carboxyhemoglobin 0.3 % THb (0-2.0); Fractional Inspired Oxygen 60 %; HCO3 ABG 27.1 mEq/l (22.0-26.0); Methemoglobin ABG 0.3 %THb (0-1.5); Oxygen Content ABG 12.2 %vol (16.0-22.0); Oxygen Saturation ABG 99.3 % (95.0-100.0); Oxyhemoglobin 97.6 % THb (90.0-100.0); PO2 ABG 178.2 mmHg (80.0-100.0); PO2 FiO2 Ratio Arterial Blood 2.97 %; Reduced Hemoglobin 1.8 %THb (0-5.0); Total Hemoglobin 8.6 g/dL (12.0-18.0); pH ABG 7.495 (7.350-7.450)
[2023-08-13 15:38] LABS: Device VENTILATOR; Modified Allen's Test Pass; Site Drawn RIGHT RADIAL
[2023-08-13 15:39] LABS: Arterial Blood Gas PEEP 5 cmH2O; Arterial Blood Gas Tidal Volume 350 ml; Arterial Blood Gas Vent Mode CMV; Arterial Blood Gas Ventilator rate 20 /MIN
[2023-08-13] MEDS: SODIUM CHLORIDE 0.9% IV 1,000 ML 75 ML IV CONT (19:33)
[2023-08-13] MEDS: HEPARIN SODIUM 5,000 UNITS/ML VIAL 5000 UNITS SUB-Q (19:35)
[2023-08-13] MEDS: CENTRAL LINE FLUSH 10 ML IV PUSH (19:35)
[2023-08-13] MEDS: PROPOFOL IV EMULSION 100 ML 21.84 MG IV CONT (21:20)
[2023-08-13] MEDS: dexmedeTOMIDine 400 MCG/100 ML 400 MCG/100 ML BAG 23.66 MCG IV CONT (22:40)
[2023-08-14] VITALS (46 sets, daily range): BP systolic 93–151; BP diastolic 63–80; PULSE 42–67; RESP 20–24; TEMP 36.2–37.3; O2SAT 97–100; BMI 29.5
[2023-08-14] MEDS: PROPOFOL IV EMULSION 100 ML 21.84 MG IV CONT ×6 (00:50→22:52)
[2023-08-14] MEDS: dexmedeTOMIDine 400 MCG/100 ML 400 MCG/100 ML BAG 7.28 MCG IV CONT (04:02)
[2023-08-14] MEDS: CENTRAL LINE FLUSH 10 ML IV PUSH ×3 (04:04→19:45)
[2023-08-14 04:18] LABS: Basophils Percent Auto 0.2 % (0.2-1.2); Eosinophils Absolute Auto 0.1 K/mm3 (0-0.3); Eosinophils Percent Auto 0.5 % (0-4.4); Hematocrit 26.6 % (37.0-47.0); Hemoglobin 8.2 g/dL (12.0-15.0); Immature Granulocyte Absolute 0.13 K/mm3 (0.00-0.031); Immature Granulocyte Percent A 1.2 % (0-0.5); Lymphocytes Absolute Auto 1.09 K/mm3 (0.9-3.2); Lymphocytes Percent Auto 9.7 % (18.3-44.2); Mean Corpuscular HGB Conc 30.8 g/dl (32-36); Mean Corpuscular Volume 113.7 fl (80-100); Mean Platelet Volume 9.5 fl (7.4-10.4); Monocytes Absolute Auto 1.5 K/mm3 (0.1-0.6); Monocytes Percent Auto 13.2 % (2.6-8.5); Neutrophils Absolute Auto 8.5 K/mm3 (1.3-6.7); Neutrophils Percent Auto 75.2 % (45.5-73.1); Nucleated Red Blood Cells Absolute Auto 0.1 K/mm3 (0.0-0.012); Nucleated Red Blood Cells Perc 1.1 % (0.0-0.2); Platelet Count Result 378 k/mm3 (150-375); Red Blood Count 2.34 M/mm3 (4.2-5.4); Red Cell Distribution Width 17.3 % (11.5-14.5); White Blood Count 11.2 K/mm3 (4.5-10.0)
[2023-08-14 04:27] LABS: Magnesium 2.3 mg/dL (1.6-2.3); Phosphorus 2.4 mg/dL (2.5-4.5)
[2023-08-14 04:28] LABS: Ammonia < 9 umol/L (9-30)
[2023-08-14 04:49] LABS: Platelet Estimate Adequate (Adequate)
[2023-08-14 04:50] LABS: Anisocytosis 1+ (NORMAL); Macrocytosis 1+ (NORMAL); Schistocytes None Seen (NORMAL)
[2023-08-14 05:17] LABS: Base Excess ABG -0.9 mEq/l (+/-2.0); Carboxyhemoglobin 0.3 % THb (0-2.0); Fractional Inspired Oxygen 30 %; HCO3 ABG 22.1 mEq/l (22.0-26.0); Methemoglobin ABG 0.3 %THb (0-1.5); Oxygen Content ABG 15.9 %vol (16.0-22.0); Oxygen Saturation ABG 95.4 % (95.0-100.0); PCO2 ABG 31.3 mmHg (35.0-45.0); PO2 ABG 71.1 mmHg (80.0-100.0); PO2 FiO2 Ratio Arterial Blood 2.37 %; Reduced Hemoglobin 6.4 %THb (0-5.0); Total Hemoglobin 12.1 g/dL (12.0-18.0); pH ABG 7.466 (7.350-7.450)
[2023-08-14 05:18] LABS: Arterial Blood Gas PEEP 5 cmH2O; Arterial Blood Gas Vent Mode CMV; Arterial Blood Gas Ventilator rate 20 /MIN; Device VENTILATOR; Modified Allen's Test Pass; Site Drawn RIGHT RADIAL
[2023-08-14 05:19] LABS: Arterial Blood Gas Tidal Volume 350 ml
[2023-08-14 06:26] LABS: Alanine Aminotransferase 20 U/L (6-35); Albumin Level 2.8 g/dL (3.5-5.1); Alkaline Phosphatase 79 U/L (38-126); Anion Gap 8 mmol/L (8-16); Aspartate Amino Transferase 33 U/L (14-36); Bilirubin,Total 1.7 mg/dL (0.2-1.3); Blood Urea Nitrogen 13 mg/dL (7-17); Calcium 8.3 mg/dL (8.4-10.2); Carbon Dioxide 25 mmol/L (22-30); Chloride 113 mmol/L (98-107); Estimated CRCL calculation 97 ml/min; Estimated Glomerular Filt Rate > 60; Glucose 127 mg/dL (65-110); Potassium 3.1 mmol/L (3.4-5.0); Sodium 146 mmol/L (137-145)
[2023-08-14] MEDS: MIDAZOLAM 100MG/NS 100ML(*CRX) 100 MG/100 ML BAG 6 MG IV CONT ×2 (08:08)
[2023-08-14] MEDS: HEPARIN SODIUM 5,000 UNITS/ML VIAL 5000 UNITS SUB-Q ×2 (08:10→19:38)
[2023-08-14] MEDS: SODIUM CHLORIDE 0.9% IV 1,000 ML 75 ML IV CONT (08:10)
[2023-08-14] MEDS: PANTOPRAZOLE SODIUM IV 40 MG VIAL IV PUSH (08:10)
[2023-08-14] MEDS: MINERAL OIL/WHITE PETROLATUM OINTMENT 1 APPLIC EACH EYE ×2 (08:27→19:45)
[2023-08-14] MEDS: KCL 20 MEQ/D5/0.45% SOD CHL 1,000 ML 100 ML IV CONT ×2 (09:15→18:06)
[2023-08-14] MEDS: POTASSIUM PHOS,M-BASIC-D-BASIC 20 MMOL in SODIUM CHLORIDE 0.9% IV 250 ML 64.17 MMOL IVPB (09:42)
--- NOTE | 2023-08-14 10:53 | WPDINTPN ---
Progress Note: A&P Assessment and Plan (1) Acute respiratory failure: Code(s): J96.00 - Acute respiratory failure, unspecified whether with hypoxia or hypercapnia Status: Acute Assessment and Plan: Intubated for airway protection, also from protection of harm to herself and others -continue CMV mode of ventilation, peep of 5, 40% FiO2, maintain O2 sats > 92% -sedated with propofol, Versed and Precedex infusion, maintain RASS of 0 to -2, daily sedation vacation -ABG and chest x-ray reviewed Tidal volume decreased with 20 (2) Encephalopathy: Code(s): G93.40 - Encephalopathy, unspecified Status: Acute Assessment and Plan: Patient was with combative behavior, agitation, refusing for tests and radiology, harm to herself and to others -could be related to hypoxia, ileus, electrolyte imbalance, underlying psych illness and mood disorder -patient was on Precedex infusion 1.5 mcg, with no change in her behavior -unable to give any oral medications as she is NPO due to ileus. She pulled out her NG tube multiple times -patient is allergic to Haldol and Zyprexa -currently sedated with propofol Versed and Precedex. (3) Ileus: Code(s): K56.7 - Ileus, unspecified Status: Acute Assessment and Plan: 08/13: Abdominal x-ray shows ?Dilated small bowel left mid abdomen which may reflect ileus or partial obstruction.. -NG tube to suction -surgery following the patient -avoid opioids (4) SVT (supraventricular tachycardia): Code(s): I47.10 - Supraventricular tachycardia, unspecified Status: Acute Assessment and Plan: Patient went into SVT on this hospital stay -appreciate cardiology evaluation recommendation -recommended metoprolol once she starts taking p.o. 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 Vanegas on 08/05/2023 at [facility] for her ureter malignancy Urology is following (6) Bipolar mood disorder: Code(s): F31.9 - Bipolar disorder, unspecified Status: Acute Assessment and Plan: Patient is on buspirone, gabapentin, Zoloft. Currently on hold as patient is NPO due to ileus/partial obstruction (7) Electrolyte abnormality: Code(s): E87.8 - Other disorders of electrolyte and fluid balance, not elsewhere classified Status: Acute Assessment and Plan: Change IV fluids due to hypernatremia and hyperchloremia Replace low potassium and phosphate (8) Urinary tract infection, site not specified: Code(s): N39.0 - Urinary tract infection, site not specified Status: Acute Assessment and Plan: Urine cultures growing E coli which is sensitive to Rocephin which will be continued Plan DVT prophylaxis: Heparin SQ Stress ulcer prophylaxis: Protonix Nutrition: NPO Code Status: Full code Critical Care Time Spent: 31 minutes Due to a high probability of clinically significant, life threatening deterioration, the patient required my highest level of preparedness to intervene emergently and I personally spent this critical care time directly and personally managing the patient. This critical care time included obtaining a history; examining the patient; pulse oximetry; ordering and review of studies; arranging urgent treatment with development of a management plan; evaluation of patient's response to treatment; frequent reassessment; and discussions with other providers. It was exclusive of separately billable procedures and treating other patients and teaching time. Please see Assessment and Plan section and the rest of the note for further information on patient assessment and treatment This dictation may have been done utilizing a voice recognition system. Attempts have been made to correct errors. However, th
--- NOTE | 2023-08-14 13:26 | PM.PNGS ---
Progress Note: A&P Assessment and Plan (1) Ileus: Code(s): K56.7 - Ileus, unspecified Status: Acute Assessment and Plan: exam largely benign, +flatus and good bowel sounds, cont bowel regimen, cont OG to suction for now Subjective Subjective Date/Time Seen: 08/14/23 13:26 Interval history: intubated yesterday, no acute issues otherwise Review of Systems Review of Systems: ROS unobtainable: Yes unobtainable due to endotracheal tube Exam Resp: Auscultation: diminished lung sounds Cardio: Rate: regular rate Rhythm: regular rhythm GI: Inspection: normal to inspection, distended and incision GI Palp: Yes abdominal tenderness, Yes Soft to palpation, No Guarding due to palpation present (GI) and No Rigid due to palpation Objective Data Vital Signs Vital Signs: Vital Signs - 24 hr 08/13/23 13:43 08/13/23 14:00 08/13/23 15:15 Temperature Pulse Rate 115 H 63 50 L Respiratory Rate 20 Blood Pressure Pulse Oximetry 100 Oxygen Delivery Mechanical Ventilation Fraction of Inspired Oxygen 50 08/13/23 13:29 08/13/23 16:04 08/13/23 16:27 Temperature Pulse Rate 84 53 L Respiratory Rate 20 Blood Pressure Pulse Oximetry 100 100 Oxygen Delivery Mechanical Ventilation Mechanical Ventilation Fraction of Inspired Oxygen 60 40 08/13/23 15:00 08/13/23 16:00 08/13/23 16:00 Temperature 36.8 C Pulse Rate 60 55 L 55 L Respiratory Rate 20 20 Blood Pressure 139/82 Pulse Oximetry 100 Oxygen Delivery Fraction of Inspired Oxygen 08/13/23 16:00 08/13/23 16:55 08/13/23 18:35 Temperature Pulse Rate 53 L 61 Respiratory Rate 20 Blood Pressure Pulse Oximetry 100 100 Oxygen Delivery Mechanical Ventilation Mechanical Ventilation Fraction of Inspired Oxygen 40 40 30 08/13/23 18:00 08/13/23 19:34 08/13/23 19:34 Temperature Pulse Rate 54 L 52 L 52 L Respiratory Rate 20 20 Blood Pressure Pulse Oximetry Oxygen Delivery Fraction of Inspired Oxygen 08/13/23 19:36 08/13/23 19:36 08/13/23 20:07 Temperature Pulse Rate 51 L 52 L 54 L Respiratory Rate 20 20 20 Blood Pressure Pulse Oximetry Oxygen Delivery Fraction of Inspired Oxygen 08/13/23 20:10 08/13/23 20:00 08/13/23 20:00 Temperature 37.4 C Pulse Rate 54 L 55 L 55 L Respiratory Rate 20 Blood Pressure 154/86 H Pulse Oximetry 98 98 Oxygen Delivery Mechanical Ventilation Fraction of Inspired Oxygen 30 08/13/23 20:00 08/13/23 21:04 08/13/23 21:20 Temperature Pulse Rate 51 L 48 L Respiratory Rate 20 20 Blood Pressure Pulse Oximetry Oxygen Delivery Fraction of Inspired Oxygen 30 08/13/23 22:00 08/13/23 23:32 08/13/23 22:40 Temperature Pulse Rate 43 L 45 L Respiratory Rate 20 Blood Pressure Pulse Oximetry Oxygen Delivery Fraction of Inspired Oxygen 30 08/13/23 22:40 08/13/23 23:40 08/14/23 00:50 Temperature Pulse Rate 45 L 47 L 54 L Respiratory Rate 20 20 22 H Blood Pressure Pulse Oximetry Oxygen Delivery Fraction of Inspired Oxygen 08/14/23 00:00 08/14/23 00:00 08/14/23 01:20 Temperature 37.3 C Pulse Rate 42 L 42 L 52 L Respiratory Rate 20 20 Blood Pressure 143/77 H Pulse Oximetry 99 Oxygen Delivery Fraction of Inspired Oxygen 08/14/23 02:04 08/13/23 23:00 08/14/23 01:30 Temperature Pulse Rate 45 L 46 L 49 L Respiratory Rate 20 Blood Pressure Pulse Oximetry 99 98 Oxygen Delivery Mechanical Ventilation Mechanical Ventilation Fraction of Inspired Oxygen 30 30 08/14/23 02:00 08/14/23 02:40 08/14/23 02:00 Temperature 37.2 C Pulse Rate 48 L 46 L 44 L Respiratory Rate 20 20 Blood Pressure 142/75 H Pulse Oximetry 98 Oxygen Delivery Fraction of Inspired Oxygen 08/14/23 04:02 08/14/23 04:00 08/14/23 04:00 Temperature Pulse Rate 51 L 50 L Respiratory Rate 20 Blood Pressure Pulse Oximetry Oxyg
[2023-08-14] MEDS: dexmedeTOMIDine 400 MCG/100 ML 400 MCG/100 ML BAG 9.1 MCG IV CONT (14:14)
[2023-08-14 16:59] LABS: Potassium 3.2 mmol/L (3.4-5.0)
--- NOTE | 2023-08-14 16:59 | WPDUROPN2 ---
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 of right ureter Status: Acute Plan 58 year old female who underwent robotic right distal ureterectomy with reimplantation and right pelvic LN dissection with Dr. Vanegas on 08/05/23. Currently admitted to the ICU with ileus managed by General surgery with nasogastric tube, encephalopathy managed by ICU staff. --we will continue to follow closely --continue supportive care in the ICU --discussed with ICU attending, patient may need transfer to facility that has psychiatric care once her critical issues have been addressed --Rich catheter okay to be removed when stable per primary team Subjective Subjective Date/Time Seen: 08/14/23 16:59 Interval history: Patient sedated and intubated Exam Narrative: Patient is intubated sedated. Her abdomen is soft. Her incisions are clean dry and intact with glue in place. She does have some subcutaneous left-sided hematoma. Patient's Rich catheter is in place with clear urine Objective Data Vital Signs Vital Signs: Vital Signs - 24 hr 08/13/23 18:35 08/13/23 18:00 08/13/23 19:34 Temperature Pulse Rate 54 L 52 L Respiratory Rate 20 Blood Pressure Pulse Oximetry Oxygen Delivery Fraction of Inspired Oxygen 30 08/13/23 19:34 08/13/23 19:36 08/13/23 19:36 Temperature Pulse Rate 52 L 51 L 52 L Respiratory Rate 20 20 20 Blood Pressure Pulse Oximetry Oxygen Delivery Fraction of Inspired Oxygen 08/13/23 20:07 08/13/23 20:10 08/13/23 20:00 Temperature Pulse Rate 54 L 54 L 55 L Respiratory Rate 20 Blood Pressure Pulse Oximetry 98 Oxygen Delivery Mechanical Ventilation Fraction of Inspired Oxygen 30 08/13/23 20:00 08/13/23 20:00 08/13/23 21:04 Temperature 37.4 C Pulse Rate 55 L 51 L Respiratory Rate 20 20 Blood Pressure 154/86 H Pulse Oximetry 98 Oxygen Delivery Fraction of Inspired Oxygen 30 08/13/23 21:20 08/13/23 22:00 08/13/23 23:32 Temperature Pulse Rate 48 L 43 L Respiratory Rate 20 Blood Pressure Pulse Oximetry Oxygen Delivery Fraction of Inspired Oxygen 30 08/13/23 22:40 08/13/23 22:40 08/13/23 23:40 Temperature Pulse Rate 45 L 45 L 47 L Respiratory Rate 20 20 20 Blood Pressure Pulse Oximetry Oxygen Delivery Fraction of Inspired Oxygen 08/14/23 00:50 08/14/23 00:00 08/14/23 00:00 Temperature 37.3 C Pulse Rate 54 L 42 L 42 L Respiratory Rate 22 H 20 Blood Pressure 143/77 H Pulse Oximetry 99 Oxygen Delivery Fraction of Inspired Oxygen 08/14/23 01:20 08/14/23 02:04 08/13/23 23:00 Temperature Pulse Rate 52 L 45 L 46 L Respiratory Rate 20 20 Blood Pressure Pulse Oximetry 99 Oxygen Delivery Mechanical Ventilation Fraction of Inspired Oxygen 30 08/14/23 01:30 08/14/23 02:00 08/14/23 02:40 Temperature Pulse Rate 49 L 48 L 46 L Respiratory Rate 20 Blood Pressure Pulse Oximetry 98 Oxygen Delivery Mechanical Ventilation Fraction of Inspired Oxygen 30 08/14/23 02:00 08/14/23 04:02 08/14/23 04:00 Temperature 37.2 C Pulse Rate 44 L 51 L Respiratory Rate 20 20 Blood Pressure 142/75 H Pulse Oximetry 98 Oxygen Delivery Fraction of Inspired Oxygen 30 08/14/23 04:00 08/14/23 04:00 08/14/23 04:30 Temperature 37.0 C Pulse Rate 50 L 50 L 50 L Respiratory Rate 20 20 Blood Pressure 150/77 H Pulse Oximetry 97 Oxygen Delivery Fraction of Inspired Oxygen 08/14/23 04:57 08/14/23 05:13 08/14/23 06:00 Temperature Pulse Rate 48 L 50 L 63 Respiratory Rate 20 Blood Pressure Pulse Oximetry 98 Oxygen Delivery Mechanical Ventilation Fraction of Inspired
[2023-08-14 17:04] LABS: Anion Gap 4 mmol/L (8-16); Blood Urea Nitrogen 10 mg/dL (7-17); Calcium 7.8 mg/dL (8.4-10.2); Carbon Dioxide 27 mmol/L (22-30); Chloride 114 mmol/L (98-107); Estimated CRCL calculation 118 ml/min; Estimated Glomerular Filt Rate > 60; Glucose 140 mg/dL (65-110); Sodium 145 mmol/L (137-145)
--- NOTE | 2023-08-14 17:28 | PM.IMPN ---
Progress Note: A&P Assessment and Plan (1) Postoperative ileus: Code(s): K91.89 - Other postprocedural complications and disorders of digestive system; K56.7 - Ileus, unspecified Status: Acute (2) Abnormal urinalysis: Code(s): R82.90 - Unspecified abnormal findings in urine Status: Acute (3) Carcinoma of right ureter: Code(s): C66.1 - Malignant neoplasm of right ureter Status: Acute (4) Chronic obstructive pulmonary disease: Code(s): J44.9 - Chronic obstructive pulmonary disease, unspecified Status: Acute (5) Tobacco dependence: Code(s): F17.200 - Nicotine dependence, unspecified, uncomplicated Status: Acute (6) Psychiatric illness: Code(s): F99 - Mental disorder, not otherwise specified Status: Acute (7) Macrocytic anemia: Code(s): D53.9 - Nutritional anemia, unspecified Status: Acute Plan 08/14/2023: Patient still intubated and sedated for protection of airway Continue with the OG tube with suction for her ileus Follow-up closely as per general surgeon Patient status post right distal ureterectomy with reimplantation and right pelvic lymph node dissection with Dr. Vanegas on 08/05/23.? Follow-up closely as per Urology KULWINDER Rich once patient is stable Urology recommending transfer to tertiary care facility with Psychiatric present once critical care issues have been resolved Follow-up closely with the primary special educator for labs and electrolyte management as well as the weaning off ventilation support ? Patient seen and examined at bedside during my morning rounds ? Collaborated with patient's nurse at the bedside in detail and addressed all concerns ? Labs, electrolytes, radiology, investigations and test results reviewed ? Consult/Nursing/Ancilliary notes on the chart reviewed and appreciated Repeat labs in a.m. Electrolyte replacement as per protocol. Patient will be monitored very closely on the floor. Further recommendations as per the hospital course. 08/12/2023: The patient presented to the emergency department for evaluation of abdominal pain as detailed in HPI. Labs, imaging, EKG, and all reports were personally reviewed. CT of the abdomen and pelvis showed findings consistent with ileus. She continued to have nausea and vomiting NG tube has been inserted and hooked to low intermittent suction. She has been started on maintenance IV fluid given pretty significant NG output. Urinalysis is abnormal and with a mildly increased WBC count and low-grade fever, she has been started on empiric antibiotics pending urine culture. Urology plans for cystoscopy tomorrow. No findings to suggest COPD exacerbation. She declines the need for a nicotine patch at this time. Her psychiatric medications are currently on hold; lorazepam 0.5 mg IV q.8 hours available as needed for her anxiety. She has macrocytic anemia and hemoglobin has dropped 2 g in the last couple of months. Check iron studies, B12, and folate. Findings and treatment plan were discussed with the patient. Questions were solicited and answered to satisfaction. The patient's medical management will be taken over by the hospitalist team in a.m. Subjective Date/time seen: 08/14/23 17:28 Interval history: Patient sedated and intubated Review of Systems Review of Systems: Unable to be obtained. Patient is intubated and sedated ROS unobtainable: Yes unobtainable due to endotracheal tube Exam Narrative: General: Patient intubated andsedated. weight: 74 0.4 kg. BMI: 30.0. HEENT: PERRL, EOMI. Sclera anicteric. NG tube in the left naris draining opaque greenish-yellow fluid. Tacky mucous membranes. Neck: Supple. Respiratory: Coarse bilateral breath sounds, ETT in place, patient is ventilated Cardiovascular: + sinus tachycardia with S1-S2. Gastrointestinal: Abdomen is distended with decreased bowel sounds. She is tender to palpation percussion throughout the abdomen. No g
[2023-08-14] MEDS: KCL 40 MEQ/WATER 100 ML 100 ML 20 ML IVPB (18:03)
[2023-08-14] MEDS: POTASSIUM CHLORIDE 20 MEQ PACKET (FOR LIQUID) 40 MEQ FEED TUBE (18:03)
[2023-08-14] MEDS: MIDAZOLAM 100MG/NS 100ML(*CRX) 100 MG/100 ML BAG 8 MG IV CONT (20:37)
[2023-08-15] VITALS (42 sets, daily range): BP systolic 86–153; BP diastolic 58–103; PULSE 45–75; RESP 16–25; TEMP 36.2–38.8; O2SAT 93–100
[2023-08-15] MEDS: dexmedeTOMIDine 400 MCG/100 ML 400 MCG/100 ML BAG 9.1 MCG IV CONT ×2 (00:45→08:21)
[2023-08-15] MEDS: PROPOFOL IV EMULSION 100 ML 21.84 MG IV CONT ×3 (03:29→23:02)
[2023-08-15] MEDS: KCL 20 MEQ/D5/0.45% SOD CHL 1,000 ML 100 ML IV CONT (03:30)
[2023-08-15 04:13] LABS: Basophils Percent Auto 0.2 % (0.2-1.2); Eosinophils Absolute Auto 0.1 K/mm3 (0-0.3); Eosinophils Percent Auto 1.2 % (0-4.4); Hematocrit 26.6 % (37.0-47.0); Hemoglobin 8.1 g/dL (12.0-15.0); Immature Granulocyte Absolute 0.09 K/mm3 (0.00-0.031); Immature Granulocyte Percent A 0.8 % (0-0.5); Lymphocytes Absolute Auto 1.49 K/mm3 (0.9-3.2); Lymphocytes Percent Auto 13.6 % (18.3-44.2); Mean Corpuscular HGB Conc 30.5 g/dl (32-36); Mean Corpuscular Hemoglobin 34.9 pg (26-34); Mean Corpuscular Volume 114.7 fl (80-100); Mean Platelet Volume 9.8 fl (7.4-10.4); Monocytes Absolute Auto 0.9 K/mm3 (0.1-0.6); Monocytes Percent Auto 7.8 % (2.6-8.5); Neutrophils Absolute Auto 8.4 K/mm3 (1.3-6.7); Neutrophils Percent Auto 76.4 % (45.5-73.1); Nucleated Red Blood Cells Absolute Auto 0.1 K/mm3 (0.0-0.012); Nucleated Red Blood Cells Perc 0.6 % (0.0-0.2); Platelet Count Result 349 k/mm3 (150-375); Red Blood Count 2.32 M/mm3 (4.2-5.4); Red Cell Distribution Width 17.5 % (11.5-14.5)
[2023-08-15 04:22] LABS: Magnesium 2.2 mg/dL (1.6-2.3); Phosphorus 2.5 mg/dL (2.5-4.5); Triglycerides 130 mg/dL (<150)
[2023-08-15 04:43] LABS: Anisocytosis 1+ (NORMAL); Macrocytosis 1+ (NORMAL); Platelet Estimate Adequate (Adequate); Schistocytes None Seen (NORMAL)
[2023-08-15 04:57] LABS: Alveolar/Arterial O2 Gradient 94.7 mmHg; Base Excess ABG 0.9 mEq/l (+/-2.0); Carboxyhemoglobin 0.3 % THb (0-2.0); Fractional Inspired Oxygen 30 %; HCO3 ABG 24.5 mEq/l (22.0-26.0); Methemoglobin ABG 0.3 %THb (0-1.5); Oxygen Content ABG 12.1 %vol (16.0-22.0); Oxygen Saturation ABG 96.3 % (95.0-100.0); Oxyhemoglobin 93.7 % THb (90.0-100.0); PCO2 ABG 34.7 mmHg (35.0-45.0); PO2 ABG 78.4 mmHg (80.0-100.0); PO2 FiO2 Ratio Arterial Blood 2.61 %; Reduced Hemoglobin 5.7 %THb (0-5.0); Total Hemoglobin 9.1 g/dL (12.0-18.0); pH ABG 7.466 (7.350-7.450)
[2023-08-15 04:58] LABS: Device VENTILATOR; Modified Allen's Test Pass; Site Drawn RIGHT RADIAL
[2023-08-15 04:59] LABS: Arterial Blood Gas Vent Mode CMV; Arterial Blood Gas Ventilator rate 20 /MIN
[2023-08-15 05:00] LABS: Arterial Blood Gas PEEP 5 cmH2O; Arterial Blood Gas Tidal Volume 320 ml
[2023-08-15 05:01] LABS: Arterial Blood Gas Minute Volume 6.3 LPM
[2023-08-15] MEDS: CENTRAL LINE FLUSH 10 ML IV PUSH ×3 (05:57→19:58)
[2023-08-15 06:12] LABS: Alanine Aminotransferase 20 U/L (6-35); Albumin Level 2.5 g/dL (3.5-5.1); Alkaline Phosphatase 78 U/L (38-126); Anion Gap 3 mmol/L (8-16); Aspartate Amino Transferase 35 U/L (14-36); Bilirubin,Total 1.2 mg/dL (0.2-1.3); Blood Urea Nitrogen 8 mg/dL (7-17); Carbon Dioxide 25 mmol/L (22-30); Chloride 117 mmol/L (98-107); Estimated CRCL calculation 120 ml/min; Estimated Glomerular Filt Rate > 60; Glucose 142 mg/dL (65-110); Potassium 3.6 mmol/L (3.4-5.0); Sodium 145 mmol/L (137-145)
--- NOTE | 2023-08-15 07:27 | WPDUROPN2 ---
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 of right ureter Status: Acute Plan Catheter continues to drain well with clear urine Catheter to be removed as she recovers and becomes ambulatory Subjective Subjective Date/Time Seen: 08/15/23 07:27 Interval history: Stable overnight, remains intubated Review of Systems Review of Systems: ROS unobtainable: Yes unobtainable due to endotracheal tube Exam Const: General: no acute distress Resp: Effort & Inspection: normal respiratory effort GI: Inspection: non-distended GI Palp: No abdominal tenderness and No Guarding due to palpation present (GI) Auscultation: normal bowel sounds Objective Data Vital Signs Vital Signs: Vital Signs - 24 hr 08/14/23 08:08 08/14/23 08:09 08/14/23 08:09 Temperature Pulse Rate 62 62 62 Respiratory Rate 20 20 20 Blood Pressure Pulse Oximetry Oxygen Delivery Fraction of Inspired Oxygen 08/14/23 08:45 08/14/23 09:13 08/14/23 08:08 Temperature Pulse Rate 63 64 62 Respiratory Rate 24 H 20 Blood Pressure Pulse Oximetry 100 Oxygen Delivery Mechanical Ventilation Fraction of Inspired Oxygen 30 08/14/23 09:10 08/14/23 09:41 08/14/23 09:23 Temperature Pulse Rate 64 61 Respiratory Rate 24 H 20 Blood Pressure Pulse Oximetry Oxygen Delivery Mechanical Ventilation Fraction of Inspired Oxygen 30 08/14/23 08:00 08/14/23 08:00 08/14/23 08:00 Temperature 97.1 F L Pulse Rate 61 61 Respiratory Rate 20 Blood Pressure 151/80 H Pulse Oximetry 97 Oxygen Delivery Fraction of Inspired Oxygen 30 08/14/23 10:00 08/14/23 10:00 08/14/23 08:00 Temperature 97.7 F Pulse Rate 60 60 Respiratory Rate 20 Blood Pressure 121/73 Pulse Oximetry 99 97 Oxygen Delivery Mechanical Ventilation Fraction of Inspired Oxygen 30 08/14/23 11:48 08/14/23 11:49 08/14/23 11:49 Temperature Pulse Rate 51 L 51 L 51 L Respiratory Rate 20 20 20 Blood Pressure Pulse Oximetry Oxygen Delivery Fraction of Inspired Oxygen 08/14/23 12:00 08/14/23 12:00 08/14/23 12:00 Temperature Pulse Rate 51 L Respiratory Rate Blood Pressure Pulse Oximetry 100 Oxygen Delivery Mechanical Ventilation Fraction of Inspired Oxygen 30 30 08/14/23 12:00 08/14/23 11:05 08/14/23 13:55 Temperature 98.0 F Pulse Rate 51 L 53 L 53 L Respiratory Rate 20 Blood Pressure 104/63 Pulse Oximetry 99 99 100 Oxygen Delivery Mechanical Ventilation Mechanical Ventilation Fraction of Inspired Oxygen 30 30 08/14/23 14:12 08/14/23 14:14 08/14/23 14:23 Temperature Pulse Rate 67 64 64 Respiratory Rate 20 20 20 Blood Pressure Pulse Oximetry Oxygen Delivery Fraction of Inspired Oxygen 08/14/23 14:00 08/14/23 14:00 08/14/23 16:21 Temperature 98.5 F Pulse Rate 58 L 58 L 55 L Respiratory Rate 20 20 Blood Pressure 109/76 Pulse Oximetry 100 Oxygen Delivery Fraction of Inspired Oxygen 08/14/23 16:22 08/14/23 16:23 08/14/23 16:00 Temperature Pulse Rate 55 L 55 L 57 L Respiratory Rate 20 20 Blood Pressure Pulse Oximetry Oxygen Delivery Fraction of Inspired Oxygen 08/14/23 16:00 08/14/23 16:00 08/14/23 16:00 Temperature 99.0 F Pulse Rate 53 L Respiratory Rate 20 Blood Pressure 104/70 Pulse Oximetry 99 99 Oxygen Delivery Mechanical Ventilation Fraction of Inspired Oxygen 30 30 08/14/23 16:28 08/14/23 18:00 08/14/23 18:00 Temperature 98.5 F Pulse Rate 52 L 52 L 52 L Respiratory Rate 20 Blood Pressure 104/64 Pulse Oximetry 99 99 Oxygen Delivery Mechanical Ventilation Fraction of Inspired Oxygen 30 08/14/23 18:42
[2023-08-15] MEDS: PROPOFOL IV EMULSION 100 ML 15.29 MG IV CONT (08:16)
[2023-08-15] MEDS: PANTOPRAZOLE SODIUM IV 40 MG VIAL IV PUSH (08:18)
[2023-08-15] MEDS: HEPARIN SODIUM 5,000 UNITS/ML VIAL 5000 UNITS SUB-Q ×2 (08:18→19:52)
[2023-08-15] MEDS: MINERAL OIL/WHITE PETROLATUM OINTMENT 1 APPLIC EACH EYE ×2 (08:18→19:58)
--- NOTE | 2023-08-15 08:54 | WPDINTPN ---
Progress Note: A&P Assessment and Plan (1) Acute respiratory failure: Code(s): J96.00 - Acute respiratory failure, unspecified whether with hypoxia or hypercapnia Status: Acute Assessment and Plan: Intubated for airway protection, also from protection of harm to herself and others -continue CMV mode of ventilation, peep of 5, 30% FiO2, maintain O2 sats > 92% -sedated with propofol, Versed and Precedex infusion, maintain RASS of 0 to -2, daily sedation vacation -ABG and chest x-ray reviewed Decrease rate to 16 (2) Encephalopathy: Code(s): G93.40 - Encephalopathy, unspecified Status: Acute Assessment and Plan: Patient was with combative behavior, agitation, refusing for tests and radiology, harm to herself and to others -could be related to hypoxia, ileus, electrolyte imbalance, underlying psych illness and mood disorder -patient was on Precedex infusion 1.5 mcg, with no change in her behavior -unable to give any oral medications as she is NPO due to ileus. She pulled out her NG tube multiple times -patient is allergic to Haldol and Zyprexa -currently sedated with propofol Versed and Precedex. -wean down sedation (3) Ileus: Code(s): K56.7 - Ileus, unspecified Status: Acute Assessment and Plan: 08/13: Abdominal x-ray shows ?Dilated small bowel left mid abdomen which may reflect ileus or partial obstruction.. -NG tube to suction -surgery following the patient -avoid opioids -will discuss with surgery regarding further imaging or starting trickle feeds (4) SVT (supraventricular tachycardia): Code(s): I47.10 - Supraventricular tachycardia, unspecified Status: Acute Assessment and Plan: Patient went into SVT on this hospital stay -appreciate cardiology evaluation recommendation -recommended metoprolol once she starts taking p.o. 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 Vanegas on 08/05/2023 at [facility] for her ureter malignancy Urology is following (6) Bipolar mood disorder: Code(s): F31.9 - Bipolar disorder, unspecified Status: Acute Assessment and Plan: Patient is on buspirone, gabapentin, Zoloft. Currently on hold as patient is NPO due to ileus/partial obstruction (7) Electrolyte abnormality: Code(s): E87.8 - Other disorders of electrolyte and fluid balance, not elsewhere classified Status: Acute Assessment and Plan: Change IV fluids due to hypernatremia and hyperchloremia Replace low potassium (8) Urinary tract infection, site not specified: Code(s): N39.0 - Urinary tract infection, site not specified Status: Acute Assessment and Plan: Urine cultures growing E coli which is sensitive to Rocephin which will be continued Plan DVT prophylaxis: Heparin SQ Stress ulcer prophylaxis: Protonix Nutrition: NPO Code Status: Full code Critical Care Time Spent: 30 minutes Due to a high probability of clinically significant, life threatening deterioration, the patient required my highest level of preparedness to intervene emergently and I personally spent this critical care time directly and personally managing the patient. This critical care time included obtaining a history; examining the patient; pulse oximetry; ordering and review of studies; arranging urgent treatment with development of a management plan; evaluation of patient's response to treatment; frequent reassessment; and discussions with other providers. It was exclusive of separately billable procedures and treating other patients and teaching time. Please see Assessment and Plan section and the rest of the note for further information on patient assessment and treatment This dictation may have been done utilizing a voic
[2023-08-15] MEDS: KCL 40 MEQ/WATER 100 ML 100 ML 25 ML IVPB (09:19)
[2023-08-15] MEDS: KCL 20 MEQ/D5W 1,000 ML 1,000 ML 50 ML IV CONT (09:19)
--- NOTE | 2023-08-15 10:48 | PM.PNGS ---
Progress Note: A&P Assessment and Plan (1) Ileus: Code(s): K56.7 - Ileus, unspecified Status: Acute Assessment and Plan: exam benign, will try trophic feeds thru OG Subjective Subjective Date/Time Seen: 08/15/23 10:48 Interval history: no acute issues, intubated, sedated, no bowel movts yesterday Review of Systems Review of Systems: ROS unobtainable: Yes unobtainable due to endotracheal tube Exam Const: General: ill appearing Resp: Auscultation: diminished lung sounds Cardio: Rate: regular rate Rhythm: regular rhythm GI: Inspection: normal to inspection, distended and incision GI Palp: Yes abdominal tenderness, Yes Soft to palpation, Yes Tenderness to palpation present (GI), No Guarding due to palpation present (GI) and No Rigid due to palpation Objective Data Vital Signs Vital Signs: Vital Signs - 24 hr 08/14/23 11:48 08/14/23 11:49 08/14/23 11:49 Temperature Pulse Rate 51 L 51 L 51 L Respiratory Rate 20 20 20 Blood Pressure Pulse Oximetry Oxygen Delivery Fraction of Inspired Oxygen 08/14/23 12:00 08/14/23 12:00 08/14/23 12:00 Temperature Pulse Rate 51 L Respiratory Rate Blood Pressure Pulse Oximetry 100 Oxygen Delivery Mechanical Ventilation Fraction of Inspired Oxygen 30 30 08/14/23 12:00 08/14/23 11:05 08/14/23 13:55 Temperature 36.7 C Pulse Rate 51 L 53 L 53 L Respiratory Rate 20 Blood Pressure 104/63 Pulse Oximetry 99 99 100 Oxygen Delivery Mechanical Ventilation Mechanical Ventilation Fraction of Inspired Oxygen 30 30 08/14/23 14:12 08/14/23 14:14 08/14/23 14:23 Temperature Pulse Rate 67 64 64 Respiratory Rate 20 20 20 Blood Pressure Pulse Oximetry Oxygen Delivery Fraction of Inspired Oxygen 08/14/23 14:00 08/14/23 14:00 08/14/23 16:21 Temperature 36.9 C Pulse Rate 58 L 58 L 55 L Respiratory Rate 20 20 Blood Pressure 109/76 Pulse Oximetry 100 Oxygen Delivery Fraction of Inspired Oxygen 08/14/23 16:22 08/14/23 16:23 08/14/23 16:00 Temperature Pulse Rate 55 L 55 L 57 L Respiratory Rate 20 20 Blood Pressure Pulse Oximetry Oxygen Delivery Fraction of Inspired Oxygen 08/14/23 16:00 08/14/23 16:00 08/14/23 16:00 Temperature 37.2 C Pulse Rate 53 L Respiratory Rate 20 Blood Pressure 104/70 Pulse Oximetry 99 99 Oxygen Delivery Mechanical Ventilation Fraction of Inspired Oxygen 30 30 08/14/23 16:28 08/14/23 18:00 08/14/23 18:00 Temperature 36.9 C Pulse Rate 52 L 52 L 52 L Respiratory Rate 20 Blood Pressure 104/64 Pulse Oximetry 99 99 Oxygen Delivery Mechanical Ventilation Fraction of Inspired Oxygen 30 08/14/23 18:42 08/14/23 18:42 08/14/23 18:43 Temperature Pulse Rate 53 L 53 L 53 L Respiratory Rate 20 20 20 Blood Pressure Pulse Oximetry Oxygen Delivery Fraction of Inspired Oxygen 08/14/23 20:37 08/14/23 20:42 08/14/23 20:00 Temperature Pulse Rate 56 L 56 L 54 L Respiratory Rate 23 H Blood Pressure Pulse Oximetry 100 Oxygen Delivery Mechanical Ventilation Fraction of Inspired Oxygen 30 08/14/23 20:00 08/14/23 22:00 08/14/23 22:00 Temperature 36.8 C 36.6 C Pulse Rate 54 L 52 L 52 L Respiratory Rate 20 20 Blood Pressure 102/65 93/63 L Pulse Oximetry 100 100 Oxygen Delivery Fraction of Inspired Oxygen 08/14/23 20:00 08/14/23 22:52 08/14/23 23:15 Temperature Pulse Rate 51 L 50 L Respiratory Rate 20 Blood Pressure Pulse Oximetry 100 Oxygen Delivery Mechanical Ventilation Fraction of Inspired Oxygen 30 30 08/15/23 00:00 08/15/23 00:00 08/15/23 00:00 Temperature 36.5 C Pulse Rate 50 L 50 L Respiratory Rate 20 Blood Pressure 106/69 Pulse Oximetry 100 Oxygen Delivery Fraction of Inspired Oxygen 30 08/15/23 00:45 08/15/23 02:00 08/15/23 02:00 Temperature 37.4 C Pulse Rate 49 L 48 L 48 L Respiratory Rat
--- NOTE | 2023-08-15 10:58 | PCFNICU ---
ICU Rounding Note: Pt current nutrition is NPO. Nutrition recommendation: Vital AF 1.2 at 20 ml/hr Last recorded weight is 75.8 kg. Bowel Motility:No BM reported Labs Reviewed:Glu 142, Cr 0.4,Alb 2.5 Meds Noted:Precedex, Versed, Propofol at 15.3 ml/te=910 kcals, Heparin Skin: WNL Additional Notes: Patient remains on mechanical vent. No nutrition at this time. Spoke with [employer] today regarding tube feedings, plans to start feeding today. Recommend: Vital AF 1.2 at 20 ml/hr at this time. Due to propofol infusion recommend goal rate at this time at 40 ml/hr. Will recommend adjusting rate as propofol infusion decreases. Following daily in ICU rounds. Will monitor, weight, labs, skin, meds, diet orders in ICU rounds and reassessing every Saturday and Saturday.
[2023-08-15 12:57] LABS: Glucose Point of Care 76 mg/dl (65-105)
[2023-08-15] MEDS: PROPOFOL IV EMULSION 100 ML 19.66 MG IV CONT (14:20)
[2023-08-15] MEDS: ACETAMINOPHEN 325 MG TABLET 650 MG PO ×2 (16:50→19:52)
[2023-08-15 16:56] LABS: Glucose Point of Care 93 mg/dl (65-105)
[2023-08-15] MEDS: MIDAZOLAM HCL (*CRX) 2 MG/2 ML VIAL IV PUSH ×4 (18:45→23:37)
[2023-08-15] MEDS: dexmedeTOMIDine 400 MCG/100 ML 400 MCG/100 ML BAG 18.2 MCG IV CONT (19:36)
[2023-08-16] VITALS (43 sets, daily range): BP systolic 95–115; BP diastolic 57–72; PULSE 50–88; RESP 18–29; TEMP 37.2–38.3; O2SAT 96–100
[2023-08-16] MEDS: dexmedeTOMIDine 400 MCG/100 ML 400 MCG/100 ML BAG 18.2 MCG IV CONT (00:11)
[2023-08-16] MEDS: ACETAMINOPHEN 325 MG TABLET 650 MG PO ×2 (00:14→07:26)
[2023-08-16] MEDS: MIDAZOLAM HCL (*CRX) 2 MG/2 ML VIAL IV PUSH ×4 (00:34→22:53)
[2023-08-16 00:54] LABS: Glucose Point of Care 126 mg/dl (65-105)
[2023-08-16] MEDS: PROPOFOL IV EMULSION 100 ML 21.84 MG IV CONT ×4 (02:52→21:00)
[2023-08-16 04:19] LABS: Basophils Percent Auto 0.2 % (0.2-1.2); Eosinophils Absolute Auto 0.1 K/mm3 (0-0.3); Eosinophils Percent Auto 0.9 % (0-4.4); Hematocrit 27.5 % (37.0-47.0); Hemoglobin 8.3 g/dL (12.0-15.0); Immature Granulocyte Absolute 0.13 K/mm3 (0.00-0.031); Lymphocytes Absolute Auto 1.91 K/mm3 (0.9-3.2); Lymphocytes Percent Auto 14.9 % (18.3-44.2); Mean Corpuscular HGB Conc 30.2 g/dl (32-36); Mean Corpuscular Hemoglobin 34.7 pg (26-34); Mean Corpuscular Volume 115.1 fl (80-100); Mean Platelet Volume 10.1 fl (7.4-10.4); Monocytes Absolute Auto 1.1 K/mm3 (0.1-0.6); Monocytes Percent Auto 8.4 % (2.6-8.5); Neutrophils Absolute Auto 9.6 K/mm3 (1.3-6.7); Neutrophils Percent Auto 74.6 % (45.5-73.1); Nucleated Red Blood Cells Perc 0.2 % (0.0-0.2); Platelet Count Result 383 k/mm3 (150-375); Red Blood Count 2.39 M/mm3 (4.2-5.4); Red Cell Distribution Width 17.5 % (11.5-14.5); White Blood Count 12.8 K/mm3 (4.5-10.0)
[2023-08-16 04:34] LABS: Alanine Aminotransferase 19 U/L (6-35); Albumin Level 2.5 g/dL (3.5-5.1); Alkaline Phosphatase 77 U/L (38-126); Anion Gap 4 mmol/L (8-16); Aspartate Amino Transferase 28 U/L (14-36); Bilirubin,Total 1.4 mg/dL (0.2-1.3); Blood Urea Nitrogen 5 mg/dL (7-17); Calcium 7.9 mg/dL (8.4-10.2); Carbon Dioxide 24 mmol/L (22-30); Chloride 114 mmol/L (98-107); Estimated CRCL calculation 120 ml/min; Estimated Glomerular Filt Rate > 60; Glucose 130 mg/dL (65-110); Potassium 3.2 mmol/L (3.4-5.0); Sodium 142 mmol/L (137-145)
[2023-08-16 04:35] LABS: Magnesium 2.1 mg/dL (1.6-2.3); Phosphorus 2.9 mg/dL (2.5-4.5)
[2023-08-16 04:50] LABS: Alveolar/Arterial O2 Gradient 92.9 mmHg; Base Excess ABG -0.1 mEq/l (+/-2.0); Carboxyhemoglobin 0.3 % THb (0-2.0); Fractional Inspired Oxygen 30 %; HCO3 ABG 23.6 mEq/l (22.0-26.0); Methemoglobin ABG 0.3 %THb (0-1.5); Oxygen Saturation ABG 96.4 % (95.0-100.0); PCO2 ABG 34.7 mmHg (35.0-45.0); PO2 ABG 80.2 mmHg (80.0-100.0); PO2 FiO2 Ratio Arterial Blood 2.67 %; Reduced Hemoglobin 5.4 %THb (0-5.0); Total Hemoglobin 10.5 g/dL (12.0-18.0)
[2023-08-16 04:54] LABS: Device VENTILATOR; Modified Allen's Test Pass; Site Drawn RIGHT RADIAL
[2023-08-16 04:55] LABS: Arterial Blood Gas PEEP 5 cmH2O; Arterial Blood Gas Tidal Volume 320 ml; Arterial Blood Gas Vent Mode CMV; Arterial Blood Gas Ventilator rate 16 /MIN
[2023-08-16] MEDS: KCL 20 MEQ/D5W 1,000 ML 1,000 ML 50 ML IV CONT (05:05)
[2023-08-16] MEDS: dexmedeTOMIDine 400 MCG/100 ML 400 MCG/100 ML BAG 10.92 MCG IV CONT (05:05)
[2023-08-16] MEDS: CENTRAL LINE FLUSH 10 ML IV PUSH ×3 (05:07→21:04)
[2023-08-16 05:11] LABS: Schistocytes None Seen (NORMAL)
[2023-08-16 05:13] LABS: Anisocytosis 2+ (NORMAL); Platelet Estimate Adequate (Adequate)
[2023-08-16] MEDS: PROPOFOL IV EMULSION 100 ML 19.66 MG IV CONT (07:58)
[2023-08-16] MEDS: HEPARIN SODIUM 5,000 UNITS/ML VIAL 5000 UNITS SUB-Q ×2 (08:00→20:11)
[2023-08-16] MEDS: PANTOPRAZOLE SODIUM IV 40 MG VIAL IV PUSH (08:00)
[2023-08-16] MEDS: MINERAL OIL/WHITE PETROLATUM OINTMENT 1 APPLIC EACH EYE ×2 (08:01→20:12)
[2023-08-16] MEDS: POTASSIUM BICARBONATE 25 MEQ TABEF 50 MEQ FEED TUBE ×2 (08:14→13:14)
[2023-08-16] MEDS: dexmedeTOMIDine 400 MCG/100 ML 400 MCG/100 ML BAG 27.3 MCG IV CONT ×4 (09:54→21:04)
--- NOTE | 2023-08-16 10:05 | PM.PNGS ---
Progress Note: A&P Assessment and Plan (1) Ileus: Code(s): K56.7 - Ileus, unspecified Status: Acute Assessment and Plan: resolving, exam benign, +bowel fxn, anthony trophic feeds, increase to goal as tolerated, no acute surgical issues, will s/o, call c ?s, issues Subjective Subjective Date/Time Seen: 08/16/23 10:05 Interval history: no acute issues, still quite agitated off sedation, anthony trophic feeds, +bowel fxn Review of Systems Review of Systems: ROS unobtainable: Yes unobtainable due to endotracheal tube Exam Const: General: ill appearing Resp: Auscultation: diminished lung sounds Cardio: Rate: regular rate Rhythm: regular rhythm GI: Inspection: normal to inspection, distended and incision GI Palp: No abdominal tenderness, Yes Soft to palpation, No Guarding due to palpation present (GI) and No Rigid due to palpation Objective Data Vital Signs Vital Signs: Vital Signs - 24 hr 08/15/23 11:20 08/15/23 12:58 08/15/23 12:00 Temperature Pulse Rate 67 58 L 67 Respiratory Rate 22 H Blood Pressure Pulse Oximetry 93 Oxygen Delivery Mechanical Ventilation Fraction of Inspired Oxygen 30 08/15/23 12:00 08/15/23 12:00 08/15/23 12:00 Temperature 37.1 C Pulse Rate 67 67 Respiratory Rate 22 H 22 H Blood Pressure 111/67 Pulse Oximetry 100 100 Oxygen Delivery Mechanical Ventilation Fraction of Inspired Oxygen 30 30 08/15/23 10:30 08/15/23 11:30 08/15/23 12:05 Temperature Pulse Rate 57 L 58 L 67 Respiratory Rate 17 21 H 20 Blood Pressure Pulse Oximetry Oxygen Delivery Fraction of Inspired Oxygen 08/15/23 15:00 08/15/23 14:20 08/15/23 16:43 Temperature Pulse Rate 66 74 63 Respiratory Rate 24 H 22 H Blood Pressure Pulse Oximetry 94 Oxygen Delivery Mechanical Ventilation Fraction of Inspired Oxygen 30 08/15/23 16:44 08/15/23 16:50 08/15/23 13:00 Temperature 38.6 C H Pulse Rate 63 68 Respiratory Rate 24 H 21 H Blood Pressure Pulse Oximetry Oxygen Delivery Fraction of Inspired Oxygen 08/15/23 15:00 08/15/23 16:00 08/15/23 14:00 Temperature Pulse Rate 65 73 Respiratory Rate 18 Blood Pressure Pulse Oximetry Oxygen Delivery Fraction of Inspired Oxygen 30 08/15/23 16:00 08/15/23 14:00 08/15/23 16:00 Temperature 37.9 C H 38.6 C H Pulse Rate 70 73 70 Respiratory Rate 22 H 21 H Blood Pressure 129/91 H 153/103 H Pulse Oximetry 96 94 Oxygen Delivery Fraction of Inspired Oxygen 08/15/23 17:29 08/15/23 18:31 08/15/23 18:31 Temperature Pulse Rate 63 75 75 Respiratory Rate 23 H 23 H Blood Pressure Pulse Oximetry 96 Oxygen Delivery Mechanical Ventilation Fraction of Inspired Oxygen 30 08/15/23 17:50 08/15/23 18:33 08/15/23 16:00 Temperature 38.4 C H Pulse Rate 75 70 Respiratory Rate 23 H 21 H Blood Pressure Pulse Oximetry 94 Oxygen Delivery Mechanical Ventilation Fraction of Inspired Oxygen 30 08/15/23 18:00 08/15/23 18:00 08/15/23 19:36 Temperature 38.4 C H Pulse Rate 63 63 67 Respiratory Rate 20 19 Blood Pressure 115/58 L Pulse Oximetry 95 Oxygen Delivery Fraction of Inspired Oxygen 08/15/23 19:52 08/15/23 20:00 08/15/23 20:00 Temperature 38.5 C H Pulse Rate 72 Respiratory Rate Blood Pressure Pulse Oximetry Oxygen Delivery Fraction of Inspired Oxygen 30 08/15/23 20:00 08/15/23 21:25 08/15/23 23:02 Temperature 38.6 C H Pulse Rate 72 74 69 Respiratory Rate 24 H 25 H Blood Pressure 104/74 Pulse Oximetry 97 98 Oxygen Delivery Mechanical Ventilation Fraction of Inspired Oxygen 30 08/16/23 00:11 08/15/23 21:00 08/16/23 00:14 Temperature 38.8 C H 38.2 C H Pulse Rate 62 Respiratory Rate 19 Blood Pressure Pulse Oximetry Oxygen Delivery Fraction of Inspired Oxygen 08/15/23 23:38 08/15/23 22:00 08/16/23 00:00 Temperature Pulse Rate
--- NOTE | 2023-08-16 10:58 | WPDINTPN ---
Progress Note: A&P Assessment and Plan (1) Acute respiratory failure: Code(s): J96.00 - Acute respiratory failure, unspecified whether with hypoxia or hypercapnia Status: Acute Assessment and Plan: Intubated for airway protection, also from protection of harm to herself and others -continue CMV mode of ventilation, peep of 5, 30% FiO2, maintain O2 sats > 92% -sedated with propofol, Versed and Precedex infusion, maintain RASS of 0 to -2, daily sedation vacation -ABG and chest x-ray reviewed -I performed a sedation holiday to evaluate patient weaning trial but once sedation was decreased patient became agitated trying to sit up and climb out of bed without following any commands. Patient was alarming ventilator and asynchronous with the ventilator and had to be re sedated (2) Encephalopathy: Code(s): G93.40 - Encephalopathy, unspecified Status: Acute Assessment and Plan: Patient was with combative behavior, agitation, refusing for tests and radiology, harm to herself and to others -could be related to hypoxia, ileus, electrolyte imbalance, underlying psych illness and mood disorder -patient was on Precedex infusion 1.5 mcg, with no change in her behavior -initially unable to give any oral medications as she is NPO due to ileus. She pulled out her NG tube multiple times -patient is allergic to Haldol and Zyprexa -currently sedated with propofol Versed and Precedex. -wean down sedation (3) Ileus: Code(s): K56.7 - Ileus, unspecified Status: Acute Assessment and Plan: 08/13: Abdominal x-ray shows ?Dilated small bowel left mid abdomen which may reflect ileus or partial obstruction.. Clinically improving. Tolerating tube feeds at a low rate. Plan to advance tube feeds Surgery signed off Continue to avoid opioids (4) SVT (supraventricular tachycardia): Code(s): I47.10 - Supraventricular tachycardia, unspecified Status: Acute Assessment and Plan: Patient went into SVT on this hospital stay -appreciate cardiology evaluation recommendation -recommended metoprolol once she starts taking p.o. 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 Vanegas on 08/05/2023 at [facility] for her ureter malignancy Urology is following (6) Bipolar mood disorder: Code(s): F31.9 - Bipolar disorder, unspecified Status: Acute Assessment and Plan: Patient is on buspirone, gabapentin, Zoloft. Currently on hold (7) Electrolyte abnormality: Code(s): E87.8 - Other disorders of electrolyte and fluid balance, not elsewhere classified Status: Acute Assessment and Plan: hypernatremia and hyperchloremia improved Replace low potassium (8) Urinary tract infection, site not specified: Code(s): N39.0 - Urinary tract infection, site not specified Status: Acute Assessment and Plan: Urine cultures growing E coli which is sensitive to Rocephin which will be continued Plan DVT prophylaxis: Heparin SQ Stress ulcer prophylaxis: Protonix Nutrition: Advance tube feeds Code Status: Full code Critical Care Time Spent: 30 minutes Due to a high probability of clinically significant, life threatening deterioration, the patient required my highest level of preparedness to intervene emergently and I personally spent this critical care time directly and personally managing the patient. This critical care time included obtaining a history; examining the patient; pulse oximetry; ordering and review of studies; arranging urgent treatment with development of a management plan; evaluation of patient's response to treatment; frequent reassessment; and discussions with other providers. It was exclusive of separately billable procedures and treatin
--- NOTE | 2023-08-16 11:38 | PCNFU ---
Nutrition Follow-Up Complete: Inadequate Oral Intake as related to mechanical ventilation as evidenced by NPO. goal: Meet estimated nutritional needs patient is progressing towards goal. Will continue current goal. Pt current nutrition is Vital AF 1.2 at 20 ml/hr. Nutrition recommendation: goal rate at 40ml/hr due to Propofol infusion. Last recorded weight is 74.6 kg, up from 73.1 kg on admit. Bowel Motility:+Bm reported 08/16 Labs Reviewed:Glu 130, Cr 0.4,Alb 2.5,Hct 27.5, Hgb 8.3 Meds Noted:Precedex, Propofol 21.8 ml/lf=015 kcals,Versed, Protonix Skin:WNL Additional Notes:Patient remains on mechanical vent. Tube feedings starting of Vital AF 1.2 at 20 ml/hr. Current orders for 50 ml/hr, recommend 40 ml/hr goal rate at this time due to Propofol infusion. Tube feedings at 50 ml/hr with propofol infusion providing 1895 kcals. Overfeeding on mechanical vent. Will continue to monitor tube feedings and propofol infusion for further recommendations for tube feedings rate changes. Will monitor, weight, labs, skin, meds, diet orders in ICU rounds and reassessing every Saturday and Saturday.
--- NOTE | 2023-08-16 18:09 | PM.IMPN ---
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 cont appreciate surgery recs. cont abx for uti, this could have aggravated her underlying psychiatric illness. failed weaning trial today, attempt again tomorrow. will need continuous evaluation of mental status during and after extubation. a psychiatry consult could be beneficial if she continues to be cantankerous and posing threat to herself or others. around May the patient started with a new psychiatrist and her bipolar meds were decreased, which are now being held due to being NPO. she was also admitted in may and transferred to psych facility where she was dc'ed a few days later and per the mother nothing was changed. full code. Subjective Date/time seen: 08/16/23 18:09 Interval history: pt intubated and sedated. mother at bedside. discussion held on dispo. mother doesn't want/think pt should be transferred out to psych facility from here. in may she had an acute psychotic episode and after being transferred she was sent home shortly thereafter. Review of Systems Review of Systems: ROS unobtainable: Yes unobtainable due to endotracheal tube Exam Const: General: comfortable Other: RASS-3 Eyes: Pupils: Equal, round and reactive pupils present Resp: Other: mech breath sounds Cardio: Rate: regular rate Rhythm: regular rhythm Heart sounds: no gallops, no murmurs and no rubs GI: Inspection: distended Extrem: General: no edema Objective Data Vital Signs Vital Signs: Vital Signs - 24 hr 08/15/23 18:31 08/15/23 18:31 08/15/23 18:33 Temperature Pulse Rate 75 75 75 Respiratory Rate 23 H 23 H 23 H Blood Pressure Pulse Oximetry Oxygen Delivery Fraction of Inspired Oxygen 08/15/23 19:36 08/15/23 19:52 08/15/23 20:00 Temperature 101.3 F H Pulse Rate 67 Respiratory Rate 19 Blood Pressure Pulse Oximetry Oxygen Delivery Fraction of Inspired Oxygen 30 08/15/23 20:00 08/15/23 20:00 08/15/23 21:25 Temperature 101.4 F H Pulse Rate 72 72 74 Respiratory Rate 24 H Blood Pressure 104/74 Pulse Oximetry 97 98 Oxygen Delivery Mechanical Ventilation Fraction of Inspired Oxygen 30 08/15/23 23:02 08/16/23 00:11 08/15/23 21:00 Temperature 101.8 F H Pulse Rate 69 62 Respiratory Rate 25 H 19 Blood Pressure Pulse Oximetry Oxygen Delivery Fraction of Inspired Oxygen 08/16/23 00:14 08/15/23 23:38 08/15/23 22:00 Temperature 100.8 F H Pulse Rate 67 70 Respiratory Rate Blood Pressure Pulse Oximetry 95 Oxygen Delivery Mechanical Ventilation Fraction of Inspired Oxygen 30 08/16/23 00:00 08/16/23 02:00 08/15/23 22:00 Temperature 101.6 F H Pulse Rate 66 53 L 70 Respiratory Rate 24 H Blood Pressure 115/79 Pulse Oximetry 95 Oxygen Delivery Fraction of Inspired Oxygen 08/16/23 00:00 08/16/23 02:00 08/16/23 00:00 Temperature 100.1 F H 99.2 F Pulse Rate 66 53 L Respiratory Rate 21 H 18 Blood Pressure 108/61 102/67 Pulse Oximetry 96 99 Oxygen Delivery Fraction of Inspired Oxygen 30 08/16/23 02:48 08/16/23 02:52 08/16/23 01:15 Temperature 99.8 F H Pulse
[2023-08-16 18:14] LABS: Glucose Point of Care 132 mg/dl (65-105)
[2023-08-16 23:14] LABS: Glucose Point of Care 120 mg/dl (65-105)
[2023-08-17] VITALS (45 sets, daily range): BP systolic 84–101; BP diastolic 49–61; PULSE 57–88; RESP 17–40; TEMP 37.5–38.7; O2SAT 96–100
[2023-08-17] MEDS: dexmedeTOMIDine 400 MCG/100 ML 400 MCG/100 ML BAG 27.3 MCG IV CONT ×7 (00:43→21:56)
[2023-08-17] MEDS: KCL 20 MEQ/D5W 1,000 ML 1,000 ML 50 ML IV CONT (00:51)
[2023-08-17] MEDS: PROPOFOL IV EMULSION 100 ML 21.84 MG IV CONT ×3 (01:42→18:05)
[2023-08-17] MEDS: MIDAZOLAM HCL (*CRX) 2 MG/2 ML VIAL IV PUSH ×4 (01:42→09:33)
[2023-08-17 04:38] LABS: Basophils Percent Auto 0.3 % (0.2-1.2); Eosinophils Absolute Auto 0.2 K/mm3 (0-0.3); Eosinophils Percent Auto 1.4 % (0-4.4); Hematocrit 29.3 % (37.0-47.0); Hemoglobin 9.2 g/dL (12.0-15.0); Immature Granulocyte Absolute 0.22 K/mm3 (0.00-0.031); Immature Granulocyte Percent A 1.4 % (0-0.5); Lymphocytes Absolute Auto 2.47 K/mm3 (0.9-3.2); Mean Corpuscular HGB Conc 31.4 g/dl (32-36); Mean Corpuscular Hemoglobin 35.4 pg (26-34); Mean Corpuscular Volume 112.7 fl (80-100); Mean Platelet Volume 10.4 fl (7.4-10.4); Monocytes Absolute Auto 0.9 K/mm3 (0.1-0.6); Monocytes Percent Auto 5.5 % (2.6-8.5); Neutrophils Absolute Auto 11.7 K/mm3 (1.3-6.7); Neutrophils Percent Auto 75.4 % (45.5-73.1); Platelet Count Result 421 k/mm3 (150-375); Red Cell Distribution Width 17.2 % (11.5-14.5); White Blood Count 15.4 K/mm3 (4.5-10.0)
[2023-08-17] MEDS: MIDAZOLAM 100MG/NS 100ML(*CRX) 100 MG/100 ML BAG IV CONT (04:39)
[2023-08-17 04:51] LABS: Alanine Aminotransferase 18 U/L (6-35); Albumin Level 2.8 g/dL (3.5-5.1); Alkaline Phosphatase 76 U/L (38-126); Anion Gap 5 mmol/L (8-16); Aspartate Amino Transferase 23 U/L (14-36); Bilirubin,Total 0.9 mg/dL (0.2-1.3); Blood Urea Nitrogen 5 mg/dL (7-17); Calcium 8.2 mg/dL (8.4-10.2); Carbon Dioxide 27 mmol/L (22-30); Chloride 111 mmol/L (98-107); Estimated CRCL calculation 119 ml/min; Estimated Glomerular Filt Rate > 60; Glucose 170 mg/dL (65-110); Potassium 3.7 mmol/L (3.4-5.0); Sodium 143 mmol/L (137-145)
[2023-08-17 04:53] LABS: Phosphorus 2.9 mg/dL (2.5-4.5); Triglycerides 119 mg/dL (<150)
[2023-08-17 05:10] LABS: Alveolar/Arterial O2 Gradient 92.2 mmHg; Base Excess ABG 3.2 mEq/l (+/-2.0); Carboxyhemoglobin 0.2 % THb (0-2.0); Fractional Inspired Oxygen 30 %; HCO3 ABG 27.1 mEq/l (22.0-26.0); Methemoglobin ABG 0.3 %THb (0-1.5); Oxygen Content ABG 12.9 %vol (16.0-22.0); Oxygen Saturation ABG 96.1 % (95.0-100.0); Oxyhemoglobin 94.2 % THb (90.0-100.0); PCO2 ABG 38.2 mmHg (35.0-45.0); PO2 ABG 76.8 mmHg (80.0-100.0); PO2 FiO2 Ratio Arterial Blood 2.56 %; Reduced Hemoglobin 5.3 %THb (0-5.0); Total Hemoglobin 9.7 g/dL (12.0-18.0); pH ABG 7.468 (7.350-7.450)
[2023-08-17 05:12] LABS: Arterial Blood Gas Ventilator rate 15 /MIN; Device VENTILATOR; Site Drawn RIGHT BRACHIAL
[2023-08-17 05:13] LABS: Arterial Blood Gas PEEP 5 cmH2O; Arterial Blood Gas Tidal Volume 300 ml; Arterial Blood Gas Vent Mode CMV
[2023-08-17] MEDS: CENTRAL LINE FLUSH 10 ML IV PUSH ×3 (06:16→20:55)
[2023-08-17] MEDS: PANTOPRAZOLE SODIUM IV 40 MG VIAL IV PUSH (08:28)
[2023-08-17] MEDS: HEPARIN SODIUM 5,000 UNITS/ML VIAL 5000 UNITS SUB-Q ×2 (08:28→20:50)
[2023-08-17] MEDS: MINERAL OIL/WHITE PETROLATUM OINTMENT 1 APPLIC EACH EYE ×2 (08:29→20:55)
[2023-08-17] MEDS: PROPOFOL IV EMULSION 100 ML 8.74 MG IV CONT (11:02)
[2023-08-17] MEDS: POTASSIUM CHLORIDE 20 MEQ PACKET (FOR LIQUID) 40 MEQ FEED TUBE (11:03)
--- NOTE | 2023-08-17 11:25 | WPDINTPN ---
Progress Note: A&P Assessment and Plan (1) Acute respiratory failure: Code(s): J96.00 - Acute respiratory failure, unspecified whether with hypoxia or hypercapnia Status: Acute Assessment and Plan: Intubated for airway protection, also from protection of harm to herself and others -continue CMV mode of ventilation, peep of 5, 30% FiO2, maintain O2 sats > 92% -sedated with propofol, Versed and Precedex infusion, maintain RASS of 0 to -2, daily sedation vacation -ABG and chest x-ray reviewed -I performed a sedation holiday to evaluate patient weaning trial but once sedation was decreased patient became agitated, tachypneic and asynchronous with the ventilator. Her respiratory rate was 40s. She did not follow any commands Weaning has been limited by patient's agitation and mental status (2) Encephalopathy: Code(s): G93.40 - Encephalopathy, unspecified Status: Acute Assessment and Plan: Patient was with combative behavior, agitation, refusing for tests and radiology, harm to herself and to others -could be related to hypoxia, ileus, electrolyte imbalance, underlying psych illness and mood disorder -patient was on Precedex infusion 1.5 mcg, with no change in her behavior -initially unable to give any oral medications as she is NPO due to ileus. She pulled out her NG tube multiple times -patient is allergic to Haldol and Zyprexa -currently sedated with propofol Versed and Precedex. -her psychiatric medicines have multiple interactions with current sedatives that she is on -on sedation holiday patient becomes agitated, moves all 4 extremities in the bed, a synchronous with the ventilator, tachypnea, does not follow commands (3) Ileus: Code(s): K56.7 - Ileus, unspecified Status: Acute Assessment and Plan: 08/13: Abdominal x-ray shows ?Dilated small bowel left mid abdomen which may reflect ileus or partial obstruction.. Clinically improving. 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 Vanegas on 08/05/2023 at [facility] for her ureter malignancy Urology is following (6) Bipolar mood disorder: Code(s): F31.9 - Bipolar disorder, unspecified Status: Acute Assessment and Plan: Patient is on buspirone, gabapentin, Zoloft. Currently on hold as there are lot of interactions with current sedative medications as patient is on (7) Electrolyte abnormality: Code(s): E87.8 - Other disorders of electrolyte and fluid balance, not elsewhere classified Status: Acute Assessment and Plan: hypernatremia and hyperchloremia improved Replace low potassium (8) Urinary tract infection, site not specified: Code(s): N39.0 - Urinary tract infection, site not specified Status: Acute Assessment and Plan: Urine cultures growing E coli which is sensitive to Rocephin which will be continued Plan DVT prophylaxis: Heparin SQ Stress ulcer prophylaxis: Protonix Nutrition: Advance tube feeds Code Status: Full code Critical Care Time Spent: 30 minutes Due to a high probability of clinically significant, life threatening deterioration, the patient required my highest level of preparedness to intervene emergently and I personally spent this critical care time directly and personally managing the patient. This critical care time included obtaining a histo
[2023-08-17 12:06] LABS: Glucose Point of Care 116 mg/dl (65-105)
[2023-08-17 18:01] LABS: Glucose Point of Care 128 mg/dl (65-105)
--- NOTE | 2023-08-17 18:02 | PM.IMPN ---
Progress Note: A&P Assessment and Plan (1) Acute respiratory failure: Code(s): J96.00 - Acute respiratory failure, unspecified whether with hypoxia or hypercapnia Status: Acute (2) Encephalopathy: Code(s): G93.40 - Encephalopathy, unspecified Status: Acute (3) Psychiatric illness: Code(s): F99 - Mental disorder, not otherwise specified Status: Acute Plan appreciated intensivists recs. the patient's ileus has improved and she is on feeds at 50mlhr. however she failed sedation weaning again this AM. a psychiatry consult if available on saturday. low fever and leukocytosis. adding procal in the morning to help mgmt. her blood pressures are low normal but she is on 3 sedatives and isn't requiring pressors at the moment. guarded. re-attempt sedation weaning trial in aM Subjective Date/time seen: 08/17/23 18:02 Interval history: patient failed sedation weaning, again thrashing and cantankerous this am. she is sedated on versed, propofol and precedex with a RASS -3. Review of Systems Review of Systems: ROS unobtainable: Yes unobtainable due to endotracheal tube, unobtainable due to medical condition and unobtainable due to mental status Exam Const: Other: RASS - 3. no acute distress Eyes: Pupils: Equal, round and reactive pupils present Resp: Other: mech breath sounds Cardio: Rate: regular rate Rhythm: regular rhythm Heart sounds: no gallops, no murmurs and no rubs GI: GI Palp: No Tenderness to palpation present (GI) Extrem: General: no edema Objective Data Vital Signs Vital Signs: Vital Signs - 24 hr 08/16/23 18:05 08/16/23 19:17 08/16/23 20:10 Temperature Pulse Rate 55 L 58 L 76 Respiratory Rate 22 H 25 H Blood Pressure Pulse Oximetry 100 Oxygen Delivery Mechanical Ventilation Fraction of Inspired Oxygen 30 08/16/23 20:10 08/16/23 20:00 08/16/23 20:00 Temperature 99.3 F Pulse Rate 76 69 Respiratory Rate 25 H 25 H Blood Pressure 107/72 Pulse Oximetry 100 Oxygen Delivery Fraction of Inspired Oxygen 30 08/16/23 20:00 08/16/23 21:00 08/16/23 21:00 Temperature Pulse Rate 76 61 61 Respiratory Rate 25 H 24 H 24 H Blood Pressure Pulse Oximetry 100 Oxygen Delivery Mechanical Ventilation Fraction of Inspired Oxygen 30 08/16/23 20:11 08/16/23 21:04 08/16/23 20:00 Temperature Pulse Rate 62 62 81 Respiratory Rate 22 H 22 H Blood Pressure Pulse Oximetry Oxygen Delivery Fraction of Inspired Oxygen 08/16/23 22:00 08/16/23 22:00 08/16/23 23:18 Temperature 99.9 F H Pulse Rate 57 L 57 L 58 L Respiratory Rate 21 H Blood Pressure 101/61 Pulse Oximetry 100 100 Oxygen Delivery Mechanical Ventilation Fraction of Inspired Oxygen 30 08/17/23 00:00 08/17/23 00:00 08/17/23 00:00 Temperature 99.6 F Pulse Rate 58 L 58 L Respiratory Rate 21 H 20 Blood Pressure 91/55 L Pulse Oximetry 100 100 Oxygen Delivery Mechanical Ventilation Fraction of Inspired Oxygen 30 30 08/17/23 00:00 08/17/23 00:00 08/17/23 00:00 Temperature Pulse Rate 57 L 57 L 58 L Respiratory Rate 21 H 21 H Blood Pressure Pulse Oximetry Oxygen Delivery Fraction of Inspired Oxygen 08/17/23 00:43 08/17/23 00:43 08/17/23 01:35 Temperature Pulse Rate 58 L 58 L 59 L Respiratory Rate 20 20 24 H Blood Pressure Pulse Oximetry Oxygen Delivery Fraction of Inspired Oxygen 08/17/23 01:42 08/17/23 02:00 08/17/23 02:00 Temperature 99.7 F H Pulse Rate 59 L 58 L 58 L Respiratory Rate 24 H 20 Blood Pressure 96/60 L Pulse Oximetry 100 Oxygen Delivery Fraction of Inspired Oxygen 08/17/23 02:13 08/17/23 02:13 08/17/23 02:23 Temperature Pulse Rate 57 L 58 L 57 L Respiratory Rate 18 18 Blood Pressure Pulse Oximetry 100 Oxygen Delivery Mechanical Ventilation Fraction of Inspired Oxygen 30 08/17/23 04:04 08/17/23 04:04
[2023-08-17] MEDS: PROPOFOL IV EMULSION 100 ML 19.66 MG IV CONT (22:09)
[2023-08-17] MEDS: ACETAMINOPHEN 325 MG TABLET 650 MG PO (22:26)
[2023-08-18] VITALS (51 sets, daily range): BP systolic 80–169; BP diastolic 51–83; PULSE 54–140; RESP 20–33; TEMP 37.6–39.6; O2SAT 92–100
[2023-08-18 00:11] LABS: Glucose Point of Care 111 mg/dl (65-105)
[2023-08-18] MEDS: MIDAZOLAM 100MG/NS 100ML(*CRX) 100 MG/100 ML BAG IV CONT (04:34)
[2023-08-18] MEDS: dexmedeTOMIDine 400 MCG/100 ML 400 MCG/100 ML BAG 27.3 MCG IV CONT ×7 (04:39→22:53)
[2023-08-18 04:58] LABS: Alveolar/Arterial O2 Gradient 38.8 mmHg; Base Excess ABG 4.2 mEq/l (+/-2.0); Carboxyhemoglobin 0.1 % THb (0-2.0); Fractional Inspired Oxygen 21 %; HCO3 ABG 28.3 mEq/l (22.0-26.0); Methemoglobin ABG 0.3 %THb (0-1.5); Oxygen Content ABG 12.5 %vol (16.0-22.0); Oxygen Saturation ABG 93.2 % (95.0-100.0); Oxyhemoglobin 91.1 % THb (90.0-100.0); PCO2 ABG 40.3 mmHg (35.0-45.0); PO2 ABG 62.7 mmHg (80.0-100.0); PO2 FiO2 Ratio Arterial Blood 2.99 %; Reduced Hemoglobin 8.5 %THb (0-5.0); Total Hemoglobin 9.7 g/dL (12.0-18.0); pH ABG 7.464 (7.350-7.450)
[2023-08-18 04:59] LABS: Modified Allen's Test Pass; Site Drawn RIGHT RADIAL
[2023-08-18 05:00] LABS: Arterial Blood Gas PEEP 5 cmH2O; Arterial Blood Gas Tidal Volume 300 ml; Arterial Blood Gas Vent Mode CMV; Arterial Blood Gas Ventilator rate 15 /MIN; Device VENTILATOR
[2023-08-18] MEDS: CENTRAL LINE FLUSH 10 ML IV PUSH ×3 (06:09→21:02)
[2023-08-18 06:22] LABS: Basophils Absolute Auto 0.1 K/mm3 (0.0-0.1); Basophils Percent Auto 0.3 % (0.2-1.2); Eosinophils Absolute Auto 0.2 K/mm3 (0-0.3); Eosinophils Percent Auto 1.5 % (0-4.4); Hematocrit 28.9 % (37.0-47.0); Hemoglobin 8.9 g/dL (12.0-15.0); Immature Granulocyte Absolute 0.34 K/mm3 (0.00-0.031); Immature Granulocyte Percent A 2.3 % (0-0.5); Lymphocytes Absolute Auto 2.13 K/mm3 (0.9-3.2); Lymphocytes Percent Auto 14.6 % (18.3-44.2); Mean Corpuscular HGB Conc 30.8 g/dl (32-36); Mean Corpuscular Hemoglobin 34.8 pg (26-34); Mean Corpuscular Volume 112.9 fl (80-100); Mean Platelet Volume 9.9 fl (7.4-10.4); Monocytes Absolute Auto 1.4 K/mm3 (0.1-0.6); Monocytes Percent Auto 9.4 % (2.6-8.5); Neutrophils Absolute Auto 10.4 K/mm3 (1.3-6.7); Neutrophils Percent Auto 71.9 % (45.5-73.1); Platelet Count Result 462 k/mm3 (150-375); Red Blood Count 2.56 M/mm3 (4.2-5.4); Red Cell Distribution Width 16.5 % (11.5-14.5); White Blood Count 14.5 K/mm3 (4.5-10.0)
[2023-08-18 06:33] LABS: Phosphorus 3.2 mg/dL (2.5-4.5)
[2023-08-18 07:01] LABS: Procalcitonin 0.1 ng/mL
[2023-08-18 07:36] LABS: Glucose Point of Care 166 mg/dl (65-105)
[2023-08-18] MEDS: PROPOFOL IV EMULSION 100 ML 15.29 MG IV CONT (08:00)
[2023-08-18] MEDS: PANTOPRAZOLE SODIUM IV 40 MG VIAL IV PUSH (08:50)
[2023-08-18] MEDS: HEPARIN SODIUM 5,000 UNITS/ML VIAL 5000 UNITS SUB-Q ×2 (08:50→20:48)
[2023-08-18] MEDS: MINERAL OIL/WHITE PETROLATUM OINTMENT 1 APPLIC EACH EYE ×2 (08:50→20:48)
[2023-08-18 09:13] LABS: Anion Gap 2 mmol/L (8-16); Blood Urea Nitrogen 7 mg/dL (7-17); Calcium 8.1 mg/dL (8.4-10.2); Carbon Dioxide 27 mmol/L (22-30); Chloride 109 mmol/L (98-107); Estimated CRCL calculation 119 ml/min; Estimated Glomerular Filt Rate > 60; Glucose 172 mg/dL (65-110); Potassium 3.6 mmol/L (3.4-5.0); Sodium 138 mmol/L (137-145)
[2023-08-18] MEDS: MIDAZOLAM HCL (*CRX) 2 MG/2 ML VIAL IV PUSH (11:04)
[2023-08-18 12:03] LABS: Glucose Point of Care 113 mg/dl (65-105)
--- NOTE | 2023-08-18 13:52 | WPDINTPN ---
Progress Note: A&P Assessment and Plan (1) Acute respiratory failure: Code(s): J96.00 - Acute respiratory failure, unspecified whether with hypoxia or hypercapnia Status: Acute Assessment and Plan: Intubated for airway protection, also from protection of harm to herself and others -continue CMV mode of ventilation, peep of 5, 30% FiO2, maintain O2 sats > 92% -sedated with propofol, Versed and Precedex infusion, maintain RASS of 0 to -2, daily sedation vacation -ABG and chest x-ray reviewed -08/18 I performed a sedation holiday again today to evaluate patient weaning trial but once sedation was decreased patient became agitated, tachypneic and asynchronous with the ventilator. Her respiratory rate was 40s. She desaturated. She did not follow any commands. Unable to extubate in this current situation. Weaning has been limited by patient's agitation and mental status (2) Encephalopathy: Code(s): G93.40 - Encephalopathy, unspecified Status: Acute Assessment and Plan: Patient was with combative behavior, agitation, refusing for tests and radiology, harm to herself and to others -could be related to hypoxia, ileus, electrolyte imbalance, underlying psych illness and mood disorder -patient was on Precedex infusion 1.5 mcg, with no change in her behavior -initially unable to give any oral medications as she is NPO due to ileus. She pulled out her NG tube multiple times -patient is allergic to Haldol and Zyprexa -currently sedated with propofol Versed and Precedex. -her psychiatric medicines have multiple interactions with current sedatives that she is on -on sedation holiday patient becomes agitated, moves all 4 extremities in the bed, a synchronous with the ventilator, tachypnea, does not follow commands (3) Ileus: Code(s): K56.7 - Ileus, unspecified Status: Acute Assessment and Plan: 08/13: Abdominal x-ray shows ?Dilated small bowel left mid abdomen which may reflect ileus or partial obstruction.. Clinically improving. 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 Vanegas on 08/05/2023 at [facility] for her ureter malignancy Urology is following (6) Bipolar mood disorder: Code(s): F31.9 - Bipolar disorder, unspecified Status: Acute Assessment and Plan: Patient is on buspirone, gabapentin, Zoloft. Currently on hold as there are lot of interactions with current sedative medications as patient is on (7) Electrolyte abnormality: Code(s): E87.8 - Other disorders of electrolyte and fluid balance, not elsewhere classified Status: Acute Assessment and Plan: hypernatremia and hyperchloremia improved Replace low potassium (8) Urinary tract infection, site not specified: Code(s): N39.0 - Urinary tract infection, site not specified Status: Acute Assessment and Plan: Urine cultures growing E coli which is sensitive to Rocephin . Patient has completed a course (9) Psychiatric illness: Code(s): F99 - Mental disorder, not otherwise specified Status: Acute Assessment and Plan: Patient has significant history of schizophrenia bipolar mood disorder with multiple admissions the past for suicide attempts and drug overdose and has been admitted at inpatient psychiatric facility. I will try to see if I can transfer patient t
--- NOTE | 2023-08-18 13:55 | PC.NURSE ---
Spoke with Lauren with [facility] transfer center at 1355 to [facility]. Updated transfer center on patient condition, drips running and ventilator settings. Transfer center to get back with RN if patient accepted.
[2023-08-18] MEDS: PROPOFOL IV EMULSION 100 ML 21.84 MG IV CONT (14:18)
--- NOTE | 2023-08-18 14:52 | PM.IMPN ---
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 Unfortunately she remains intubated as she failed sedation holiday, thrashing and becoming asynchronous with the ventilator. Suspect a large part of the complicated is due to her underlying psychiatric condition, which was not well controlled before all of this. Unfortunately it was told to transmission design engineer [facility] does not have inpatient psych consultation. At this point, even a call out to Dr. Santizo tomorrow may help guide therapy. Other complications include fever, UTI, pneumonia. Today cefepime and vanc reinitiated for possibly HCAP. monitor fever. HSC and protonix for prophylaxis. full code Subjective Date/time seen: 08/18/23 14:52 Interval history: patient thrashing around again when sedation attempted to be weaned. she failed trial of sbt. Review of Systems Review of Systems: ROS unobtainable: Yes unobtainable due to endotracheal tube, unobtainable due to medical condition and unobtainable due to mental status Exam Const: Other: RASS +1 Eyes: Pupils: Equal, round and reactive pupils present Resp: Other: mech breath sounds Cardio: Rate: regular rate Rhythm: regular rhythm Heart sounds: Gallop heart sound present, no murmurs and no rubs GI: Inspection: distended Extrem: General: no edema Objective Data Vital Signs Vital Signs: Vital Signs - 24 hr 08/17/23 14:57 08/17/23 14:57 08/17/23 16:10 Temperature Pulse Rate 64 64 67 Respiratory Rate 23 H 23 H Blood Pressure Pulse Oximetry 100 Oxygen Delivery Mechanical Ventilation Fraction of Inspired Oxygen 30 08/17/23 17:09 08/17/23 16:00 08/17/23 16:00 Temperature 100.3 F H Pulse Rate 60 64 Respiratory Rate 22 H 23 H Blood Pressure 95/54 L Pulse Oximetry 100 Oxygen Delivery Fraction of Inspired Oxygen 21 08/17/23 16:00 08/17/23 16:00 08/17/23 18:05 Temperature Pulse Rate 64 64 62 Respiratory Rate 23 H 23 H 23 H Blood Pressure Pulse Oximetry Oxygen Delivery Fraction of Inspired Oxygen 08/17/23 18:05 08/17/23 18:06 08/17/23 18:06 Temperature Pulse Rate 62 63 63 Respiratory Rate 23 H 21 H 21 H Blood Pressure Pulse Oximetry Oxygen Delivery Fraction of Inspired Oxygen 08/17/23 18:00 08/17/23 16:00 08/17/23 18:00 Temperature Pulse Rate 62 63 69 Respiratory Rate 25 H Blood Pressure Pulse Oximetry Oxygen Delivery Fraction of Inspired Oxygen 08/17/23 18:00 08/17/23 16:00 08/17/23 21:02 Temperature 100.6 F H Pulse Rate 69 88 Respiratory Rate 21 H 21 H Blood Pressure 84/49 L Pulse Oximetry 96 96 97 Oxygen Delivery Mechanical Ventilation Mechanical Ventilation Fraction of Inspired Oxygen 21 30 08/17/23 21:46 08/17/23 21:56 08/17/23 22:09 Temperature Pulse Rate 75 75 75 Respir
[2023-08-18] MEDS: CEFEPIME 1 GM/NS 50 ML 1 GM/50 ML BAG IVPB ×2 (14:56→20:36)
[2023-08-18] MEDS: POTASSIUM CHLORIDE 20 MEQ PACKET (FOR LIQUID) 40 MEQ FEED TUBE (14:56)
[2023-08-18] MEDS: diazePAM (*CRX) 10 MG TABLET FEED TUBE ×2 (15:12→21:03)
[2023-08-18] MEDS: VANCOMYCIN 1,750 MG/NS 500 ML 1,750 MG/500 ML BAG 250 MG IVPB (15:17)
[2023-08-18] MEDS: chlorproMAZINE HCL 25 MG TABLET FEED TUBE ×2 (15:17→21:03)
[2023-08-18 15:29] LABS: Appearance Urine Turbid (Clear); Bacteria Urine 4+ /hpf; Bilirubin Urine Negative (Negative); Blood Urine 3+ (Negative); Color Urine Yellow (Yellow); Glucose Urine UA Negative (Negative); Ketones Urine Negative (Negative); Leukocyte Esterase Ur 3+ LEU/UL (Negative); Need Manual Microscopic Reviewed; Nitrate Urine Negative (Negative); Non Pathogenic Casts >20; Protein Urine 2+ mg/dL (Negative); RBC Urine >100 /hpf (0-2); Specific Grav Ur 1.012 (1.001-1.035); Squamous Epithelial Cell Urine Few /hpf (Few); WBC Urine >100 /hpf
[2023-08-18 15:32] LABS: Add Urine Microscopic? YES
[2023-08-18] MEDS: GABAPENTIN 300 MG CAPSULE FEED TUBE (16:19)
[2023-08-18] MEDS: busPIRone HCL 10 MG, busPIRone HCL 5 MG 15 MG FEED TUBE (16:19)
[2023-08-18 17:26] LABS: Glucose Point of Care 159 mg/dl (65-105)
[2023-08-18 17:41] LABS: MRSA (PCR) DETECTED (NOT DETECTE)
[2023-08-18] MEDS: PROPOFOL IV EMULSION 100 ML 17.47 MG IV CONT ×2 (18:46→23:19)
[2023-08-18] MEDS: ACETAMINOPHEN 325 MG TABLET 650 MG PO (20:48)
[2023-08-18 23:45] LABS: Glucose Point of Care 172 mg/dl (65-105)
[2023-08-19] VITALS (44 sets, daily range): BP systolic 89–112; BP diastolic 48–65; PULSE 58–96; RESP 25–38; TEMP 37.7–38.5; O2SAT 63–99
[2023-08-19] MEDS: dexmedeTOMIDine 400 MCG/100 ML 400 MCG/100 ML BAG 27.3 MCG IV CONT ×4 (01:44→12:14)
[2023-08-19] MEDS: PROPOFOL IV EMULSION 100 ML 17.47 MG IV CONT (03:50)
[2023-08-19] MEDS: VANCOMYCIN 1,500 MG/NS 500 ML 1,500 MG/500 ML BAG 250 MG IVPB ×2 (04:10→16:17)
[2023-08-19] MEDS: ACETAMINOPHEN 325 MG TABLET 650 MG PO ×4 (04:32→20:48)
[2023-08-19 05:27] LABS: Alveolar/Arterial O2 Gradient 97.9 mmHg; Base Excess ABG 1.6 mEq/l (+/-2.0); Fractional Inspired Oxygen 21 %; HCO3 ABG 25.5 mEq/l (22.0-26.0); Oxygen Content ABG 11.5 %vol (16.0-22.0); Oxygen Saturation ABG 89.9 % (95.0-100.0); PCO2 ABG 37.4 mmHg (35.0-45.0); PO2 ABG 54.5 mmHg (80.0-100.0); Total Hemoglobin 9.4 g/dL (12.0-18.0); pH ABG 7.452 (7.350-7.450)
[2023-08-19] MEDS: diazePAM (*CRX) 10 MG TABLET FEED TUBE ×3 (05:28→21:04)
[2023-08-19] MEDS: CENTRAL LINE FLUSH 10 ML IV PUSH ×3 (05:28→20:52)
[2023-08-19 05:29] LABS: Oxyhemoglobin 86.8 % THb (90.0-100.0)
[2023-08-19 05:30] LABS: Arterial Blood Gas PEEP 5 cmH2O; Arterial Blood Gas Vent Mode CMV; Arterial Blood Gas Ventilator rate 15 /MIN; Device VENTILATOR; Site Drawn RIGHT BRACHIAL
[2023-08-19 05:31] LABS: Arterial Blood Gas Tidal Volume 300 ml
[2023-08-19 05:53] LABS: Hematocrit 27.5 % (37.0-47.0); Hemoglobin 8.3 g/dL (12.0-15.0); Mean Corpuscular HGB Conc 30.2 g/dl (32-36); Mean Corpuscular Hemoglobin 34.3 pg (26-34); Mean Corpuscular Volume 113.6 fl (80-100); Platelet Count Result 487 k/mm3 (150-375); Red Blood Count 2.42 M/mm3 (4.2-5.4); Red Cell Distribution Width 16.2 % (11.5-14.5); White Blood Count 13.8 K/mm3 (4.5-10.0)
[2023-08-19 06:08] LABS: Alanine Aminotransferase 18 U/L (6-35); Albumin Level 2.6 g/dL (3.5-5.1); Alkaline Phosphatase 72 U/L (38-126); Anion Gap 4 mmol/L (8-16); Aspartate Amino Transferase 35 U/L (14-36); Bilirubin,Total 0.7 mg/dL (0.2-1.3); Blood Urea Nitrogen 8 mg/dL (7-17); Calcium 8.1 mg/dL (8.4-10.2); Carbon Dioxide 27 mmol/L (22-30); Chloride 108 mmol/L (98-107); Estimated CRCL calculation 121 ml/min; Estimated Glomerular Filt Rate > 60; Glucose 145 mg/dL (65-110); Potassium 3.7 mmol/L (3.4-5.0); Sodium 139 mmol/L (137-145); Triglycerides 102 mg/dL (<150)
[2023-08-19] MEDS: MIDAZOLAM 100MG/NS 100ML(*CRX) 100 MG/100 ML BAG IV CONT (08:19)
[2023-08-19] MEDS: busPIRone HCL 10 MG, busPIRone HCL 5 MG 15 MG FEED TUBE ×3 (08:25→16:17)
[2023-08-19] MEDS: chlorproMAZINE HCL 25 MG TABLET FEED TUBE ×2 (08:26→20:24)
[2023-08-19] MEDS: GABAPENTIN 300 MG CAPSULE FEED TUBE ×3 (08:26→16:18)
[2023-08-19] MEDS: CEFEPIME 1 GM/NS 50 ML 1 GM/50 ML BAG IVPB (08:28)
[2023-08-19] MEDS: PANTOPRAZOLE SODIUM IV 40 MG VIAL IV PUSH (08:28)
[2023-08-19] MEDS: HEPARIN SODIUM 5,000 UNITS/ML VIAL 5000 UNITS SUB-Q ×2 (08:28→20:25)
[2023-08-19] MEDS: MINERAL OIL/WHITE PETROLATUM OINTMENT 1 APPLIC EACH EYE ×2 (08:29→20:24)
--- NOTE | 2023-08-19 11:19 | PCFNICU ---
Addendum entered by Felisha Navarro, RD, LDN 08/19/23 11:22: ICU Rounding Note: Pt current nutrition is Vital 1.2 @ 40 ml/h with flushes 30 ml q 4 hours (1452 kcal, 90 g protein, 981.) Nutrition recommendation: Continue with current nutrition care plan and tube feeding orders with no changes. Meeting estimated nutrition needs Last recorded weight is 77.5 kg. Bowel Motility: Liquid stool per FMS Labs Reviewed: Hgb 8.3, Hct 27.5, Alb 2.6, Cre 0.4, Glu 145 Meds Noted: Sedation with Precedex, versed, valium. protonix Skin: No pressure related skin breakdown Additional Notes: Tolerating tube feedings. Propofol is off. No pressors. Continue with current nutrition care plan. Agree with orders. Following daily in ICU rounds. Will monitor, weight, labs, skin, meds, diet orders in ICU rounds and reassessing every Saturday and Saturday. . Original Note: ICU Rounding Note: Pt current nutrition isVital 1.2 @ 40 ml/h with flushes 30 ml q 4 hours. Nutrition recommendation: Last recorded weight is 77.5 kg. Bowel Motility: Liquid stool per FMS Labs Reviewed: Hgb 8.3, Hct 27.5, Alb 2.6, Cre 0,4m Glu 145 Meds Noted: Sedation with Precedex, versed, valium. protonix Skin: Additional Notes: Tolerating tube feedings. Propofol is off. No pressors Following daily in ICU rounds. Will monitor, weight, labs, skin, meds, diet orders in ICU rounds and reassessing every Saturday and Saturday. .
--- NOTE | 2023-08-19 12:27 | WPDINTPN ---
Progress Note: A&P Assessment and Plan (1) Acute respiratory failure: Code(s): J96.00 - Acute respiratory failure, unspecified whether with hypoxia or hypercapnia Status: Acute Assessment and Plan: Intubated for airway protection, also from protection of harm to herself and others Patient was on cMV mode of ventilation, peep of 5, 30% FiO2, maintain O2 sats > 92% -sedated with propofol, Versed and Precedex infusion -ABG and chest x-ray reviewed Over last few days patient has been failing weaning trials due to agitation, being a synchronous with the ventilator, tachypnea. Weaning has been limited by patient's agitation and mental status. Suspect this has been partly due to his psychiatric illness. I placed patient on PSV today. Although she was tachypneic she maintained her saturation and vital signs. I chose to proceed with extubation. Continue Precedex infusion for now. I have resumed her psychiatric medications which may help (2) Encephalopathy: Code(s): G93.40 - Encephalopathy, unspecified Status: Acute Assessment and Plan: Patient was with combative behavior, agitation, refusing for tests and radiology, harm to herself and to others -could be related to hypoxia, ileus, electrolyte imbalance, underlying psych illness and mood disorder -patient was on Precedex infusion 1.5 mcg, with no change in her behavior -initially unable to give any oral medications as she is NPO due to ileus. She pulled out her NG tube multiple times -patient is allergic to Haldol and Zyprexa -patient was sedated with propofol Versed and Precedex. -I resumed her psychiatric medications and added per tube Valium. She is now off of propofol Versed and is on Precedex infusion which will be slowly wean down (3) Ileus: Code(s): K56.7 - Ileus, unspecified Status: Acute Assessment and Plan: 08/13: Abdominal x-ray shows ?Dilated small bowel left mid abdomen which may reflect ileus or partial obstruction.. Clinically improving. 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 Vanegas on 08/05/2023 at [facility] for her ureter malignancy Urology is following (6) Bipolar mood disorder: Code(s): F31.9 - Bipolar disorder, unspecified Status: Acute Assessment and Plan: See above (7) Electrolyte abnormality: Code(s): E87.8 - Other disorders of electrolyte and fluid balance, not elsewhere classified Status: Acute Assessment and Plan: hypernatremia and hyperchloremia improved Replace low potassium (8) Urinary tract infection, site not specified: Code(s): N39.0 - Urinary tract infection, site not specified Status: Acute Assessment and Plan: Urine cultures growing E coli which is sensitive to Rocephin . Patient has completed a course (9) Psychiatric illness: Code(s): F99 - Mental disorder, not otherwise specified Status: Acute Assessment and Plan: Patient has significant history of schizophrenia bipolar mood disorder with multiple admissions the past for suicide attempts and drug overdose and has been admitted at inpatient psychiatric facility. I will try to see if I can transfer patient to a facility where both medical critical care and psychiatric consultation is available. Spoke to transfer center at [facility]. Apparently there is n
[2023-08-19] MEDS: SERTRALINE HCL 50 MG TABLET FEED TUBE (13:54)
[2023-08-19] MEDS: dexmedeTOMIDine 400 MCG/100 ML 400 MCG/100 ML BAG 23.66 MCG IV CONT (16:16)
[2023-08-19] MEDS: CEFEPIME 2 GM/NS 50 ML 2 GM/50 ML BAG IVPB ×2 (16:17→20:19)
[2023-08-19] MEDS: dexmedeTOMIDine 400 MCG/100 ML 400 MCG/100 ML BAG 20.02 MCG IV CONT (20:29)
[2023-08-19 23:56] LABS: Glucose Point of Care 127 mg/dl (65-105)
[2023-08-20] VITALS (26 sets, daily range): BP systolic 92–161; BP diastolic 53–95; PULSE 55–127; RESP 17–26; TEMP 37.2–38.3; O2SAT 95–98
[2023-08-20] MEDS: dexmedeTOMIDine 400 MCG/100 ML 400 MCG/100 ML BAG 20.02 MCG IV CONT ×2 (01:47→05:55)
[2023-08-20 03:42] LABS: Hematocrit 28.4 % (37.0-47.0); Hemoglobin 8.6 g/dL (12.0-15.0); Mean Corpuscular HGB Conc 30.3 g/dl (32-36); Mean Corpuscular Hemoglobin 34.1 pg (26-34); Mean Corpuscular Volume 112.7 fl (80-100); Mean Platelet Volume 9.8 fl (7.4-10.4); Platelet Count Result 511 k/mm3 (150-375); Red Blood Count 2.52 M/mm3 (4.2-5.4); Red Cell Distribution Width 16.4 % (11.5-14.5); White Blood Count 11.5 K/mm3 (4.5-10.0)
[2023-08-20 03:52] LABS: Alanine Aminotransferase 20 U/L (6-35); Albumin Level 2.7 g/dL (3.5-5.1); Alkaline Phosphatase 72 U/L (38-126); Anion Gap 1 mmol/L (8-16); Aspartate Amino Transferase 35 U/L (14-36); Bilirubin,Total 0.9 mg/dL (0.2-1.3); Blood Urea Nitrogen 6 mg/dL (7-17); Calcium 8.4 mg/dL (8.4-10.2); Carbon Dioxide 29 mmol/L (22-30); Chloride 110 mmol/L (98-107); Estimated CRCL calculation 121 ml/min; Estimated Glomerular Filt Rate > 60; Glucose 128 mg/dL (65-110); Potassium 3.6 mmol/L (3.4-5.0); Sodium 140 mmol/L (137-145)
[2023-08-20 03:56] LABS: Vancomycin Trough 10.5 ug/mL (10.0-20.0)
[2023-08-20] MEDS: diazePAM (*CRX) 10 MG TABLET FEED TUBE ×3 (05:57→21:50)
[2023-08-20] MEDS: CENTRAL LINE FLUSH 10 ML IV PUSH ×3 (05:57→21:54)
[2023-08-20] MEDS: VANCOMYCIN 1,500 MG/NS 500 ML 1,500 MG/500 ML BAG 250 MG IVPB ×3 (06:00→21:50)
[2023-08-20] MEDS: SERTRALINE HCL 50 MG TABLET FEED TUBE (08:34)
[2023-08-20] MEDS: chlorproMAZINE HCL 25 MG TABLET FEED TUBE ×2 (08:34→21:50)
[2023-08-20] MEDS: PANTOPRAZOLE SODIUM IV 40 MG VIAL IV PUSH (08:34)
[2023-08-20] MEDS: GABAPENTIN 300 MG CAPSULE FEED TUBE ×3 (08:34→16:44)
[2023-08-20] MEDS: busPIRone HCL 10 MG, busPIRone HCL 5 MG 15 MG FEED TUBE ×3 (08:35→16:44)
[2023-08-20] MEDS: CEFEPIME 2 GM/NS 50 ML 2 GM/50 ML BAG IVPB ×2 (08:35→21:49)
[2023-08-20] MEDS: MINERAL OIL/WHITE PETROLATUM OINTMENT 1 APPLIC EACH EYE ×2 (08:46→21:50)
[2023-08-20] MEDS: HEPARIN SODIUM 5,000 UNITS/ML VIAL 5000 UNITS SUB-Q ×2 (08:46→21:51)
[2023-08-20] MEDS: POTASSIUM CHLORIDE 20 MEQ PACKET (FOR LIQUID) 40 MEQ FEED TUBE (09:09)
--- NOTE | 2023-08-20 09:29 | WPDINTPN ---
Progress Note: A&P Assessment and Plan (1) Acute respiratory failure: Code(s): J96.00 - Acute respiratory failure, unspecified whether with hypoxia or hypercapnia Status: Acute Assessment and Plan: Intubated for airway protection, also from protection of harm to herself and others Patient was on cMV mode of ventilation, peep of 5, 30% FiO2, maintain O2 sats > 92% -sedated with propofol, Versed and Precedex infusion -ABG and chest x-ray reviewed Over last few days patient has been failing weaning trials due to agitation, being a synchronous with the ventilator, tachypnea. Weaning has been limited by patient's agitation and mental status. Suspect this has been partly due to his psychiatric illness. I placed patient on PSV today. Although she was tachypneic she maintained her saturation and vital signs. I chose to proceed with extubation. Continue Precedex infusion for now. I have resumed her psychiatric medications which may help 08/20 extubated yesterday.. Now on room air at incentive spirometry (2) Encephalopathy: Code(s): G93.40 - Encephalopathy, unspecified Status: Acute Assessment and Plan: Patient was with combative behavior, agitation, refusing for tests and radiology, harm to herself and to others -could be related to hypoxia, ileus, electrolyte imbalance, underlying psych illness and mood disorder -patient was on Precedex infusion 1.5 mcg, with no change in her behavior -initially unable to give any oral medications as she is NPO due to ileus. She pulled out her NG tube multiple times -patient is allergic to Haldol and Zyprexa -patient was sedated with propofol Versed and Precedex. -I resumed her psychiatric medications and added per tube Valium. She is now off of propofol Versed and is on Precedex infusion which will be slowly wean down 08/20 will discontinue Precedex infusion. Continue current other medication (3) Ileus: Code(s): K56.7 - Ileus, unspecified Status: Acute Assessment and Plan: 08/13: Abdominal x-ray shows ?Dilated small bowel left mid abdomen which may reflect ileus or partial obstruction.. Clinically improving. She is tolerating tube feeds and now having bowel movement Surgery signed off Continue to avoid opioids Will obtain swallow evaluation and start diet depending on the results (4) SVT (supraventricular tachycardia): Code(s): I47.10 - Supraventricular tachycardia, unspecified Status: Acute Assessment and Plan: Patient went into SVT on this hospital stay -appreciate cardiology evaluation recommendation -recommended metoprolol once off of sedative. Will start low-dose Toprol (5) Carcinoma of right ureter: Code(s): C66.1 - Malignant neoplasm of right ureter Status: Acute Assessment and Plan: recently underwent robotic right distal ureterectomy with reimplantation and right pelvic lymph node dissection per Dr. Vanegas on 08/05/2023 at [facility] for her ureter malignancy Urology is following (6) Bipolar mood disorder: Code(s): F31.9 - Bipolar disorder, unspecified Status: Acute Assessment and Plan: See above (7) Electrolyte abnormality: Code(s): E87.8 - Other disorders of electrolyte and fluid balance, not elsewhere classified Status: Acute Assessment and Plan: hypernatremia and hyperchloremia improved Replace low potassium (8) Urinary tract infection, site not specified: Code(s): N39.0 - Urinary tract infection, site not specified Status: Acute Assessment and Plan: Urine cultures growing E coli which is sensitive to Rocephin . Patient has completed a course (9) Psychiatric illness: Code(s): F99 - Mental disorder, not otherwise specified Status: Acute Assessment and Plan: Patient has significant history of schizophrenia bipolar mood disorder with multiple admissions the past for suicide attempts and drug overdose and has
--- NOTE | 2023-08-20 10:41 | PCNFU ---
Nutrition Follow-Up Complete: Inadequate Oral Intake as related to mechanical ventilation as evidenced by NPO. Goal: Meet estimated nutritional needs Patient is progressing towards goal. We will continue current goal. Pt current nutrition is NPO. Nutrition recommendation: advance as tolerated per MD orders. Last recorded weight is 77 kg, up from 73.1 kg on admit. Bowel Motility: FMS Labs Reviewed:Glu 128, Cr 0.4,Alb 2.7,Hct 28.4,Hgb 8.6 Meds Noted: Vancomycin,Protonix, Heparin. Skin: WNL Additional Notes:Patient has been extubated as of 08/19. Plans for swallow evaluation today. Nutrition: NPO as this time. Will monitor, weight, labs, skin, meds, diet orders in ICU rounds and reassessing every 3 days.
[2023-08-20] MEDS: ACETAMINOPHEN 325 MG TABLET 650 MG PO ×3 (12:35→23:01)
[2023-08-20] MEDS: METOPROLOL TARTRATE 12.5 MG TABLET PO ×2 (12:36→21:50)
--- NOTE | 2023-08-20 12:36 | PCSTNOTE ---
Please refer to the Bedside Swallow Evaluation in the EMR. Please note, silent aspiration cannot be ruled out at bedside.
[2023-08-21] VITALS (14 sets, daily range): BP systolic 116–152; BP diastolic 64–100; PULSE 97–120; RESP 17–26; TEMP 36.7–37.9; O2SAT 95–100
[2023-08-21] MEDS: diazePAM (*CRX) 10 MG TABLET FEED TUBE ×2 (05:24→13:30)
[2023-08-21] MEDS: ACETAMINOPHEN 325 MG TABLET 650 MG PO (05:24)
[2023-08-21] MEDS: CENTRAL LINE FLUSH 10 ML IV PUSH ×3 (05:25→21:36)
[2023-08-21 05:55] LABS: Hematocrit 31.6 % (37.0-47.0); Hemoglobin 9.7 g/dL (12.0-15.0); Mean Corpuscular HGB Conc 30.7 g/dl (32-36); Mean Corpuscular Hemoglobin 33.8 pg (26-34); Mean Corpuscular Volume 110.1 fl (80-100); Mean Platelet Volume 9.7 fl (7.4-10.4); Platelet Count Result 697 k/mm3 (150-375); Red Blood Count 2.87 M/mm3 (4.2-5.4); Red Cell Distribution Width 16.1 % (11.5-14.5)
[2023-08-21 06:03] LABS: Alanine Aminotransferase 24 U/L (6-35); Albumin Level 3.3 g/dL (3.5-5.1); Alkaline Phosphatase 98 U/L (38-126); Anion Gap 7 mmol/L (8-16); Aspartate Amino Transferase 38 U/L (14-36); Bilirubin,Total 1.1 mg/dL (0.2-1.3); Blood Urea Nitrogen 5 mg/dL (7-17); Carbon Dioxide 27 mmol/L (22-30); Chloride 108 mmol/L (98-107); Estimated CRCL calculation 121 ml/min; Estimated Glomerular Filt Rate > 60; Glucose 99 mg/dL (65-110); Potassium 3.3 mmol/L (3.4-5.0); Sodium 142 mmol/L (137-145); Triglycerides 167 mg/dL (<150)
[2023-08-21 06:06] LABS: Vancomycin Trough 18.5 ug/mL (10.0-20.0)
--- NOTE | 2023-08-21 06:34 | PC.NURSE ---
This patient, Mahnaz Oseguera, was transferred to Room 248 where Lauren VELASQUEZ took over cares on 08/21/23 at 0615. Personal belongings sent with patient. Report given to Lauren VELASQUEZ at [phone]. Appropriate documentation sent with patient.
--- NOTE | 2023-08-21 06:43 | PC.NURSE ---
Received pt from ICU, oriented to room and tele applied. Pt is alert and oriented.
[2023-08-21] MEDS: VANCOMYCIN 1,500 MG/NS 500 ML 1,500 MG/500 ML BAG 250 MG IVPB ×2 (06:48→13:36)
[2023-08-21] MEDS: busPIRone HCL 10 MG, busPIRone HCL 5 MG 15 MG FEED TUBE ×3 (09:01→17:06)
[2023-08-21] MEDS: CEFEPIME 2 GM/NS 50 ML 2 GM/50 ML BAG IVPB ×2 (09:01→20:12)
[2023-08-21] MEDS: METOPROLOL TARTRATE 12.5 MG TABLET PO (09:01)
[2023-08-21] MEDS: GABAPENTIN 300 MG CAPSULE FEED TUBE ×3 (09:02→17:06)
[2023-08-21] MEDS: HEPARIN SODIUM 5,000 UNITS/ML VIAL 5000 UNITS SUB-Q ×2 (09:02→20:16)
[2023-08-21] MEDS: SERTRALINE HCL 50 MG TABLET FEED TUBE (09:02)
[2023-08-21] MEDS: PANTOPRAZOLE SODIUM IV 40 MG VIAL IV PUSH (09:02)
[2023-08-21] MEDS: chlorproMAZINE HCL 25 MG TABLET FEED TUBE ×2 (10:06→20:15)
--- NOTE | 2023-08-21 16:41 | PM.IMPN ---
Progress Note: A&P Time Spent With Patient Time: patient doing well, extubated on 08/19. she tolerated diet and is having BM's. her medications are at home dosing aside from valium TID, this was placed to help her transition through extubation in light of her acute psychotic state. she appears to be doing much better, more calm. d/c valium and continue to monitor her psych status. home tomorrow if she her mentation is managed well and her HR is better. only slightly tachycardic. increased metoprolo from 12.5mg bid to 25mg po bid full code Subjective Date/time seen: 08/21/23 16:41 Interval history: naoe. patient was unhappy with the pureed diet. otherwise she has no complaints and denies any nausea/vomiting/abdominal pain/ diarrhea Review of Systems Review of Systems: All systems reviewed & are unremarkable except as noted in HPI and below (subjective) Exam Const: General: comfortable and no acute distress Eyes: Pupils: Equal, round and reactive pupils present Neck: Neck: supple Resp: Effort & Inspection: normal respiratory effort Auscultation: clear to auscultation bilaterally Cardio: Rate: tachycardic Rhythm: regular rhythm Heart sounds: no gallops, no murmurs and no rubs GI: GI Palp: Yes Soft to palpation Extrem: General: no edema Objective Data Vital Signs Vital Signs: Vital Signs - 24 hr 08/20/23 17:40 08/20/23 18:00 08/20/23 18:00 Temperature 100.7 F H 100.8 F H Pulse Rate 108 H 110 H Respiratory Rate 22 H Blood Pressure 130/61 Pulse Oximetry 97 Oxygen Delivery 08/20/23 21:50 08/20/23 20:00 08/20/23 22:00 Temperature 100.8 F H 101.0 F H Pulse Rate 122 H 109 H 112 H Respiratory Rate 25 H 17 Blood Pressure 137/67 132/71 Pulse Oximetry 97 98 Oxygen Delivery 08/20/23 20:00 08/20/23 22:00 08/20/23 20:00 Temperature Pulse Rate 111 H 112 H Respiratory Rate Blood Pressure Pulse Oximetry Oxygen Delivery Room Air 08/20/23 23:01 08/21/23 00:00 08/21/23 00:00 Temperature 100.7 F H Pulse Rate 105 H Respiratory Rate Blood Pressure Pulse Oximetry Oxygen Delivery Room Air 08/21/23 00:00 08/21/23 00:01 08/21/23 05:24 Temperature 100.3 F H 99.9 F H 100.0 F H Pulse Rate 105 H Respiratory Rate 20 Blood Pressure 116/100 H Pulse Oximetry 96 Oxygen Delivery 08/21/23 04:00 08/21/23 02:00 08/21/23 04:00 Temperature 99.9 F H 100.0 F H Pulse Rate 103 H 97 103 H Respiratory Rate 26 H 18 Blood Pressure 126/64 130/65 Pulse Oximetry 97 96 Oxygen Delivery 08/21/23 02:00 08/21/23 06:00 08/21/23 06:00 Temperature 98.6 F Pulse Rate 97 107 H 103 H Respiratory Rate 17 Blood Pressure 141/69 H Pulse Oximetry 95 Oxygen Delivery 08/21/23 04:00 08/21/23 09:01 08/21/23 08:00 Temperature 98.4 F Pulse Rate 100 102 H Respiratory Rate 17 Blood Pressure 138/64 Pulse Oximetry 95 Oxygen Delivery Room Air 08/21/23 08:00 08/21/23 08:00 08/21/23 12:00 Temperature Pulse Rate 117 H 105 H Respiratory Rate Blood Pressure Pulse Oximetry Oxygen Delivery Room Air Intake/Output Intake/Output: Intake & Output 08/18/23 08/19/23 08/20/23 08/21/23 23:59 23:59 23:59 23:59 Intake Total 4771 4623 3290 1240 Output Total 3700 4050 4200 3050 Balance 6905 296 -295 -1275 Meds/Results Medications: Active Medications Generic Name Dose Route Start Last Admin Trade Name Freq PRN Reason Stop Dose Admin Acetaminophen 650 mg 08/15/23 16:08 08/21/23 05:24 Acetaminophen 325 Mg Tablet PO 650 mg Q4H PRN Administration Mild Pain (1-3) or Fever Buspirone HCl 10 mg/ Buspirone 15 mg 08/18/23 17:00 08/21/23 13:30 HCl 5 mg FEED TUBE 15 mg TID BENEDICTO Administration Chlorpromazine HCl 25 mg 08/18/23 14:40 08/21/23 10:06 Chlorpromazine Hcl 25 Mg Tablet FEED TUBE 25 mg Q12HR BENEDICTO Administration Gabapentin 300 mg 08/18/23 17:00 08/21/23 13:30 Odalis
[2023-08-21] MEDS: POTASSIUM CHLORIDE 20 MEQ ER TABLET PO (17:06)
[2023-08-21] MEDS: METOPROLOL TARTRATE 25 MG TABLET PO (20:15)
[2023-08-22] VITALS: PULSE 93
[2023-08-22 04:00] VITALS: PULSE 112
[2023-08-22 05:14] VITALS: BP 146/68; PULSE 105; RESP 18; TEMP 36.7; O2SAT 95
[2023-08-22 05:21] LABS: Hematocrit 34.3 % (37.0-47.0); Hemoglobin 10.3 g/dL (12.0-15.0); Mean Corpuscular Hemoglobin 33.3 pg (26-34); Mean Platelet Volume 9.5 fl (7.4-10.4); Platelet Count Result 723 k/mm3 (150-375); Red Blood Count 3.09 M/mm3 (4.2-5.4); Red Cell Distribution Width 16.2 % (11.5-14.5); White Blood Count 14.3 K/mm3 (4.5-10.0)
[2023-08-22 05:36] LABS: Alanine Aminotransferase 26 U/L (6-35); Albumin Level 3.6 g/dL (3.5-5.1); Alkaline Phosphatase 102 U/L (38-126); Anion Gap 9 mmol/L (8-16); Aspartate Amino Transferase 35 U/L (14-36); Bilirubin,Total 0.9 mg/dL (0.2-1.3); Blood Urea Nitrogen 3 mg/dL (7-17); Calcium 9.3 mg/dL (8.4-10.2); Carbon Dioxide 26 mmol/L (22-30); Chloride 107 mmol/L (98-107); Estimated CRCL calculation 121 ml/min; Estimated Glomerular Filt Rate > 60; Glucose 146 mg/dL (65-110); Potassium 3.5 mmol/L (3.4-5.0); Sodium 142 mmol/L (137-145)
[2023-08-22] MEDS: CENTRAL LINE FLUSH 20 ML IV PUSH (05:41)
[2023-08-22] MEDS: CENTRAL LINE FLUSH 10 ML IV PUSH (05:41)
--- NOTE | 2023-08-22 06:50 | PC.NURSE ---
PT EXTREMELY UPSET. CRYING, WILL NOT STAY IN BED. STATES SHE IS LEAVING AND NOONE CAN STOP HER. NOTIFIED
[2023-08-22] MEDS: diazePAM (*CRX) 10 MG TABLET PO (07:13)
[2023-08-22 08:00] VITALS: PULSE 106
--- NOTE | 2023-08-22 09:11 | PM.DS ---
DS: Admitting Diagnosis Discharge Date 08/22/23 Admitting Diagnosis ileus DS: Discharge Diagnosis Discharge Diagnosis (1) Encephalopathy: Code(s): G93.40 - Encephalopathy, unspecified Status: Acute (2) Acute respiratory failure: Code(s): J96.00 - Acute respiratory failure, unspecified whether with hypoxia or hypercapnia Status: Acute (3) SVT (supraventricular tachycardia): Code(s): I47.10 - Supraventricular tachycardia, unspecified Status: Acute (4) Fever: Code(s): R50.9 - Fever, unspecified Status: Acute (5) Pneumonia: Code(s): J18.9 - Pneumonia, unspecified organism Status: Acute (6) Psychiatric illness: Code(s): F99 - Mental disorder, not otherwise specified Status: Acute (7) Ileus: Code(s): K56.7 - Ileus, unspecified Status: Acute (8) Abnormal urinalysis: Code(s): R82.90 - Unspecified abnormal findings in urine Status: Acute DS: Summary Hospital Course Hospital Course: This is a 58-year-old female smoker with chronic obstructive pulmonary disease, depression, anxiety, and recent diagnosis of 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 She underwent robotic right distal ureterectomy with reimplantation and right pelvic lymph node dissection per Dr. Vanegas on 08/05/2023 at [facility]. She was discharged home 2 days thereafter and she reports passing a couple of small, hard stool since that time. The patient was treated in the ICU, intubated for airway protection as she became acutely combative with staff and risked harm to herself. She was also treated for pneumonia and UTI. She was extubated on 08/19, her ileus resolved as well. On 08/22, she had again increasing leukocytosis and thrombocytosis with sinus tachycardia and MRSA grew positive in the sputum. The patient however, was very upset this morning and signed out AMA. She was competent, A&ox3, able to repeat in her own words her medical situation, including the risk of deterioration, chronic debility, and even if she were to leave against our advice. The patient was full code during her admission. More than 30 minutes spent on discharge planning and documentation. Time Spent with Patient Time attestation: Total time spent providing and/or coordinating discharge services: Exam Const: General: cooperative and no acute distress Resp: Effort & Inspection: normal respiratory effort Auscultation: clear to auscultation bilaterally Cardio: Rate: regular rate Rhythm: regular rhythm Heart sounds: S1 normal heart sound present and S2 normal heart sound present GI: GI Palp: No abdominal tenderness Auscultation: normal bowel sounds DS: Data Data Completed and Pending Labs on day of discharge: Labs from last 24 hours 08/22/23 05:06 WBC 14.3 H RBC 3.09 L Hgb 10.3 L Hct 34.3 L MCV 111.0 H MCH 33.3 MCHC 30.0 L RDW 16.2 H Plt Count 723 H MPV 9.5 Sodium 142 Potassium 3.5 Chloride 107 Carbon Dioxide 26 Anion Gap 9 BUN 3 L Creatinine 0.40 L Estim Creat Clear Calc 121 Estimated GFR > 60 Glucose 146 H Calcium 9.3 Magnesium 2.0 Total Bilirubin 0.9 AST 35 ALT 26 Alkaline Phosphatase 102 Total Protein 8.0 Albumin 3.6 Preliminary micro results at discharge 08/18/23 19:19 Blood Culture - Preliminary Blood 08/18/23 19:27 Blood Culture - Preliminary Blood Discharge Plan Discharge Attending physician on discharge: Bety Taylor Consulting providers: Valentin Gomez; Michelle Gary; Zulay Prieto; Khadra Babcock; Ryan Mcintyre Patient Disposition: Left Against Medical Advice Discharge Medications: Continued ondansetron HCl 4 mg tablet 4 mg PO Q8H sertraline [Zoloft] 50 mg tablet 50 mg PO DAILY chlorpromazine 100 mg tablet 50 mg PO Q12H mariposa
--- NOTE | 2023-08-22 09:41 | PC.NURSE ---
Patient notified of risks of leaving AMA. [ Mehrdad] notified. Follow up instructions given to patient. Patient signed AMA form.
--- NOTE | 2023-08-22 11:01 | PC.NURSE ---
08/22/23 0900 Patient stated she wants to leave AMA stating I want to go home and see my dogs. Nobody cares about me here. Doctor was notified and was educated on the risks of leaving AMA. Patient was educated to lay flat for 30 minutes after PICC line removal. Patient refused to lay for 30 minutes and left AMA.
== END 2023-08-22 09:30 | disposition left against medical advice (07) | DRG 393 ==
LOC: ANHED 09:38 → ANH3MEDSUR 14:18 → ANHICU 08-12 07:58 → ANH2MED 08-22 09:18 → ANHICU 08-23 09:16
PROVIDERS: Internal Medicine; Nurse Practitioner; Physician Assistant; Admitting Provider Internal Medicine; Emergency Provider General Practice; PCP Internal Medicine Gastroenterology; Visit Provider General Practice
DX: K91.89 Other postprocedural complications and disorders of digestive system (principal); J18.9 Pneumonia, unspecified organism; J96.00 Acute respiratory failure, unspecified whether with hypoxia or hypercapnia; C66.1 Malignant neoplasm of right ureter; N39.0 Urinary tract infection, site not specified; N13.30 Unspecified hydronephrosis; K56.7 Ileus, unspecified; G93.40 Encephalopathy, unspecified; I47.10 Supraventricular tachycardia, unspecified; E87.0 Hyperosmolality and hypernatremia; J44.0 Chronic obstructive pulmonary disease with (acute) lower respiratory infection; Y95 Nosocomial condition; B95.62 Methicillin resistant Staphylococcus aureus infection as the cause of diseases classified elsewhere; E87.6 Hypokalemia; F41.9 Anxiety disorder, unspecified; D53.9 Nutritional anemia, unspecified; B96.20 Unspecified Escherichia coli [E. coli] as the cause of diseases classified elsewhere; F31.9 Bipolar disorder, unspecified; F17.210 Nicotine dependence, cigarettes, uncomplicated; F20.9 Schizophrenia, unspecified; N28.1 Cyst of kidney, acquired; Z91.198 Patient's noncompliance with other medical treatment and regimen for other reason
CPT/HCPCS: 31500; 36415; 36569; 36600; 51600; 71045; 74019; 74177; 74430; 80048; 80053; 80069; 80202; 81001; 82140; 82375; 82607; 82728; 82746; 82805; 82948; 83050; 83540; 83550; 83605; 83690; 83735; 84100; 84145; 84443; 84478; 85025; 85027; 85610; 85730; 87040; 87070; 87077; 87086; 87088; 87147; 87186; 87205; 87641; 92610; 93005; 94002; 94003; A9270; C9113; J0692; J0696; J1170; J1644; J1756; J2060; J2250; J2405; J2704; J3370; J3480; J7030; J7040; J7050; J7070; Q9967

== ENCOUNTER 2023-09-20 12:18 | Emergency (ER) | payer MEDICARE, MEDICAID, SELFPAY ==
--- NOTE | ~2023-09-20 | XR_ITS ---
EXAMINATION: XR knee LT 3V DATE: 09/20/2023 13:04 INDICATION: Medial left knee pain after kneeling 2 days prior. TECHNIQUE: Anteroposterior, oblique and crosstable lateral views of the left knee were obtained COMPARISON: 06/23/2008 FINDINGS: Bone alignment is normal. No fracture. Tricompartmental osteoarthritis with small marginal osteophyte s in all 3 compartments. There is at least moderate joint space narrowing the medial compartment whic h could be underestimated on nonweightbearing imaging. Interval increase in size of a previously 1.5 cm, currently 4.2 x 2.9 x 3.1 cm sclerotic lesion in the distal metaphyseal region of the left femur with ring and arc-like configuration of the calcified chondroid matrix. There appears to be approxima tely 6 mm wide lytic stone at the peripheral margin of the lesion. There is also suggestion of full-t hickness cortical erosion with the lesion abuts the anterior cortex. This raises concern for malignan t transformation to chondrosarcoma. Small left knee joint effusion. Couple likely loose osteochondral bodies in the superior recesses posterior to the medial and lateral femoral condyles. IMPRESSION: 1. 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 Would recommend further evaluation with CT to more definitively asses s the integrity of the cortex. 2. Small left knee joint effusion. No acute osseous abnormality. 3. Tricompartmental osteoarthritis of at least moderate severity medial compartment. Reviewed, dictated and finalized at location [facility]. [facility] OPER[facility] IMPRESSION: 1. 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 Wou ld recommend further evaluation with CT to more definitively assess the integri ty of the cortex. 2. Small left knee joint effusion. No acute osseous abnormality. 3. Tricompartmental osteoarthritis of at least moderate severity medial compart ment.
--- NOTE | ~2023-09-20 | CT_ITS ---
EXAMINATION: CT knee LT wo con DATE: 09/20/2023 14:10 INDICATION: Abnormal sclerotic bone lesion at the distal left femur on prior x-ray TECHNIQUE: High resolution computed tomography (CT) of the left knee was performed without intravenou s contrast. Additional sagittal and coronal reconstructions were performed. Automated exposure contro l and iterative reconstruction technique were employed. The dose-length product was 489.26 mGy-cm. COMPARISON: Radiograph dated 09/20/2023 FINDINGS: Bone alignment is normal. No fracture. There is a small left knee joint effusion tricompartmental ost eoarthritis with at least moderate joint space narrowing the medial compartment which could be undere stimated on nonweightbearing imaging. There is evidence of high-grade chondromalacia in all 3 compart ments with mild subarticular cystlike changes along the medial side of the medial tibial plateau and posterior weightbearing medial femoral condyle and with small central subchondral osteophytes at the central posterior aspect of the lateral tibial plateau and at the lateral margin of the patellar apic al ridge. There are few small loose osteochondral bodies along the inferior margin of the patella and a few in the posterior recesses of the knee. There is a 3.3 x 2.2 x 2.4 cm sclerotic lesion with ring and arc-like pattern of calcified chondroid matrix in the distal metaphyseal region of the left femur. The lucent region along its inferior silvia n suggests on prior radiograph demonstrates marrow fat attenuation with no evident noncalcified perip heral soft tissue component to the lesion. There is small amount of endosteal scalloping were the les ion abuts the anterior and anteromedial cortex which involves no greater than one half of the cortica l thickness. No evident full-thickness cortical erosion or evident overlying extraosseous soft tissue component or periosteal reaction. IMPRESSION: 1. Increase in size since 2007 in a now 3.3 cm distal left femoral metaphyseal mixed lytic and sclero tic lesion with calcified chondroid matrix and small amount of partial-thickness endosteal scalloping involving less than one half of the full-thickness and without other aggressive features which would be most consistent with an aggressive enchondroma. Would correlate for atypical pain not associated with activity particularly nighttime pain which would elevate concern for chondrosarcoma. Given the s ignificant interval growth and associated mild endosteal scalloping would consider orthopedic oncolog y referral to determine most appropriate workup which could include either continued radiographic fol low-up or biopsy. 2. Tricompartmental osteoarthritis with at least moderate severity medial compartment and with stigma ta of high-grade chondromalacia in all 3 compartments. 3. Small left knee joint effusion. Reviewed, dictated and finalized at location [facility]. [facility] [employer] T[employer] TENDER IMPRESSION: 1. Increase in size since 2007 in a now 3.3 cm distal left femoral metaphyseal mixed lytic and sclerotic lesion with calcified chondroid matrix and small amou nt of partial-thickness endosteal scalloping involving less than one half of th e full-thickness and without other aggressive features which would be most cons istent with an aggressive enchondroma. Would correlate for atypical pain not as sociated with activity particularly nighttime pain which would elevate concern for chondrosarcoma. Given the significant interval growth and associated mild e ndosteal scalloping would consider orthopedic oncology referral to determine mo st appropriate workup which could include either continued radiographic follow- up or biopsy. 2. Tricompartmental osteoarthritis with at least moderate severity medial kirstie rtment and with stigmata of high-grade chondromalacia in all 3 compartments.
[2023-09-20 12:23] VITALS: BP 134/77; PULSE 105; RESP 20; TEMP 36.5; O2SAT 100
--- NOTE | 2023-09-20 12:51 | ED.LOWEXIN ---
HPI - Extremity Injury (Lower) General Chief Complaint: Extremity Injury, Lower Stated Complaint: left knee pain Time Seen by Provider: 09/20/23 12:35 History of Present Illness HPI Narrative: Patient is a 58-year-old female presenting with left knee pain. States that she was crawling around in her hands and knees trying to find a cricket that was in her bed because she is scared of them. States that she feels like she pulled her knee and it started hurting when she stood up. States that it looked a little swollen yesterday. She is still able to ambulate. Has taken Tylenol with minimal relief. No redness or warmth to the knee. No fevers. No further complaints. Related Data Home Medications Medication Instructions Recorded Confirmed benztropine 2 mg tablet 0.5 mg PO Q8H PRN involuntary 04/18/22 08/11/23 movement prazosin 5 mg capsule 1 mg PO HS 04/18/22 08/11/23 ondansetron HCl 4 mg tablet 4 mg PO Q8H 11/22/22 08/11/23 chlorpromazine 100 mg tablet 50 mg PO Q12H 03/27/23 08/11/23 buspirone 15 mg tablet 15 mg PO TID 03/28/23 08/11/23 gabapentin 300 mg capsule 600 mg PO TID 05/25/23 08/11/23 sertraline 50 mg tablet (Zoloft) 50 mg PO DAILY 06/06/23 08/11/23 Allergies Allergy/AdvReac Type Severity Reaction Status Date / Time grass pollen Allergy Intermediate Hives Verified 06/24/23 13:03 amoxicillin [From Augmentin] Allergy Hives Verified 06/24/23 13:03 asenapine [From Saphris] Allergy Hives Verified 06/24/23 13:03 bacitracin Allergy Rash Verified 06/24/23 13:03 [From Neosporin ([id number])] clavulanic acid Allergy Hives Verified 06/24/23 13:03 [From Augmentin] erythromycin base Allergy Hives Verified 06/24/23 13:03 haloperidol [From Haldol] Allergy Swelling Verified 06/24/23 13:03 of Lip/Tongue/Throat latex Allergy Rash Verified 06/24/23 13:03 neomycin Allergy Rash Verified 06/24/23 13:03 [From Neosporin ([id number])] olanzapine [From Zyprexa] Allergy Swelling Verified 06/24/23 13:03 of Lip/Tongue/Throat polymyxin B Allergy Rash Verified 06/24/23 13:03 [From Neosporin ([id number])] risperidone [From Risperdal] Allergy Hives Verified 06/24/23 13:03 tramadol [From Ultram] Allergy Rash Verified 06/24/23 13:03 ciprofloxacin AdvReac Vomiting Verified 06/24/23 13:03 ibuprofen AdvReac Vomiting Verified 06/24/23 13:03 Steriod AdvReac Agitated Uncoded 06/24/23 13:03 Review of Systems Review of Systems: All systems reviewed & are unremarkable except as noted in HPI and below PMFSH Past Medical History Medical History Ankle fracture, lateral malleolus, closed December 2022 Anxiety Bipolar mood disorder Carcinoma of right ureter Chronic obstructive pulmonary disease Distal radial fracture December 2022 Migraine Schizophrenia Seizure Suicide attempt Tobacco dependence Surgical History Surgical History H/O dilation and curettage H/O foot surgery 2021 X2 H/O tubal ligation H/O: hysterectomy 2000 History of back surgery 1999 History of kidney surgery History of tonsillectomy History of ureterostomy Family History Family History Father Alcoholism Grandparent Diabetes mellitus Hypertension Heart disease Mother Kidney disease Grandparent Alcoholism Social History Social History Social History: Surrogate medical decision maker: Landy Silva, mother. Code status: Full code. Smoking packs per day: 1.5 Smoking cigarettes per day: 30.0 Years smoked: 45 Smoking pack-years: 67.50 Smoking status: Current every day smoker Tobacco type: cigarettes Second hand tobacco smoke exposure: No Alcohol intake: never Substance use: never Substance use type: painkillers and prescriptio
[2023-09-20] MEDS: ACETAMINOPHEN 500 MG TABLET 1000 MG PO (17:20)
[2023-09-20 17:33] VITALS: BP 134/97; PULSE 91; RESP 20; O2SAT 98
== END 2023-09-20 17:34 | disposition home or self-care (01) ==
PROVIDERS: Emergency Provider Emergency Medicine; PCP Internal Medicine Gastroenterology
DX: M89.9 Disorder of bone, unspecified (principal); M25.562 Pain in left knee; F31.9 Bipolar disorder, unspecified; F41.9 Anxiety disorder, unspecified; J44.9 Chronic obstructive pulmonary disease, unspecified; F20.9 Schizophrenia, unspecified; G40.909 Epilepsy, unspecified, not intractable, without status epilepticus; F17.210 Nicotine dependence, cigarettes, uncomplicated
CPT/HCPCS: 73562; 73700; 99284; A9270

== ENCOUNTER 2023-09-22 10:15 | Emergency (ER) | payer MEDICARE, MEDICAID, SELFPAY ==
[2023-09-22 10:16] VITALS: BP 126/91; PULSE 103; RESP 20; TEMP 36.4; O2SAT 100
--- NOTE | 2023-09-22 10:37 | ED.EXTPRO ---
HPI - Extremity Problem General Chief complaint: Extremity Injury, Lower Stated complaint: L knee pain Time Seen by Provider: 09/22/23 10:32 Source: patient and old records reviewed Mode of arrival: ambulatory Limitations: no limitations History of Present Illness HPI Narrative: Mahnaz is a 58-year-old female patient presenting to the ER today with complaints of ongoing left knee pain. She was seen in the ER 2 days ago and was diagnosed with a 3.3 cm distal left femoral metaphyseal mixed lytic and sclerotic lesion with calcified chondroid matrix and small amount of partial-thickness endosteal scalloping involving less than one half of the full-thickness and without other aggressive features which would be most consistent with an aggressive enchondroma. Dr. Cobb saw the patient on the and gave her phone numbers for orthopedic oncology. Patient is coming in today because she states that the Tylenol is not helping her pain and she has also tried ibuprofen and that is upsetting her stomach. Rates her pain currently 7/8 out of 10. States the knee is popping a lot when she is up ambulating. Related Data Home Medications Medication Instructions Recorded Confirmed benztropine 2 mg tablet 0.5 mg PO Q8H PRN involuntary 04/18/22 08/11/23 movement prazosin 5 mg capsule 1 mg PO HS 04/18/22 08/11/23 ondansetron HCl 4 mg tablet 4 mg PO Q8H 11/22/22 08/11/23 chlorpromazine 100 mg tablet 50 mg PO Q12H 03/27/23 08/11/23 buspirone 15 mg tablet 15 mg PO TID 03/28/23 08/11/23 gabapentin 300 mg capsule 600 mg PO TID 05/25/23 08/11/23 sertraline 50 mg tablet (Zoloft) 50 mg PO DAILY 06/06/23 08/11/23 Allergies Allergy/AdvReac Type Severity Reaction Status Date / Time grass pollen Allergy Intermediate Hives Verified 09/22/23 10:37 amoxicillin [From Augmentin] Allergy Hives Verified 09/22/23 10:37 asenapine [From Saphris] Allergy Hives Verified 09/22/23 10:37 bacitracin Allergy Rash Verified 09/22/23 10:37 [From Neosporin ([id number])] clavulanic acid Allergy Hives Verified 09/22/23 10:37 [From Augmentin] erythromycin base Allergy Hives Verified 09/22/23 10:37 haloperidol [From Haldol] Allergy Swelling Verified 09/22/23 10:37 of Lip/Tongue/Throat latex Allergy Rash Verified 09/22/23 10:37 neomycin Allergy Rash Verified 09/22/23 10:37 [From Neosporin ([id number])] olanzapine [From Zyprexa] Allergy Swelling Verified 09/22/23 10:37 of Lip/Tongue/Throat polymyxin B Allergy Rash Verified 09/22/23 10:37 [From Neosporin ([id number])] risperidone [From Risperdal] Allergy Hives Verified 09/22/23 10:37 tramadol [From Ultram] Allergy Rash Verified 09/22/23 10:37 ciprofloxacin AdvReac Vomiting Verified 09/22/23 10:37 ibuprofen AdvReac Vomiting Verified 09/22/23 10:37 Steriod AdvReac Agitated Uncoded 09/22/23 10:37 Review of Systems Review of Systems: Pertinent positives per HPI. Patient denies any fever, chills, rash, headache, visual changes, dizziness, cough, runny nose, sore throat, shortness of breath, chest pain, palpitations, nausea, vomiting, diarrhea, constipation, abdominal pain, or any urinary issues. [facility], [facility] Past Medical History Medical History Ankle fracture, lateral malleolus, closed December 2022 Anxiety Bipolar mood disorder Carcinoma of right ureter Chronic obstructive pulmonary disease Distal radial fracture December 2022 Migraine Schizophrenia Seizure Suicide attempt Tobacco dependence Surgical History Surgical History H/O dilation and curettage H/O foot surgery 2021 X2 H/O tubal ligation H/O: hysterectomy 2000 History of back surgery 1999 History of kidney surgery History of tonsillectomy History of ureterostomy Family History Family History Father Alcoholism
[2023-09-22] MEDS: KETOROLAC (*BKC) 60 MG/2 ML VIAL IM (11:24)
[2023-09-22 11:30] VITALS: BP 120/80; PULSE 90; RESP 20; O2SAT 100
== END 2023-09-22 11:40 | disposition home or self-care (01) ==
PROVIDERS: Emergency Provider Nurse Practitioner Family; PCP Internal Medicine Gastroenterology
DX: M89.9 Disorder of bone, unspecified (principal); M25.562 Pain in left knee; J44.9 Chronic obstructive pulmonary disease, unspecified; F31.9 Bipolar disorder, unspecified; F20.9 Schizophrenia, unspecified; F41.9 Anxiety disorder, unspecified; F17.210 Nicotine dependence, cigarettes, uncomplicated; Z85.54 Personal history of malignant neoplasm of ureter; Z90.710 Acquired absence of both cervix and uterus
CPT/HCPCS: 96372; 99283; J1885

== ENCOUNTER 2024-04-24 11:00 | Emergency (ER) | payer MEDICARE, MEDICAID, SELFPAY ==
--- NOTE | 2024-04-24 11:22 | ED.GENADULT ---
HPI - General Adult General Chief complaint: Alcohol Stated complaint: si etoh Time Seen by Provider: 04/24/24 11:01 History of Present Illness HPI narrative: 58-year-old female presenting to the emergency department for evaluation for alcohol intoxication. Was found at [facility] and was wandering the street. Patient apparently made threatening statements to the police about wanting to beat up someone who lives in town. Patient denies any homicidal suicidal ideation. Related Data Home Medications Medication Instructions Recorded Confirmed benztropine 2 mg tablet 0.5 mg PO Q8H PRN involuntary 04/18/22 08/11/23 movement prazosin 5 mg capsule 1 mg PO HS 04/18/22 08/11/23 ondansetron HCl 4 mg tablet 4 mg PO Q8H 11/22/22 08/11/23 chlorpromazine 100 mg tablet 50 mg PO Q12H 03/27/23 08/11/23 buspirone 15 mg tablet 15 mg PO TID 03/28/23 08/11/23 gabapentin 300 mg capsule 600 mg PO TID 05/25/23 08/11/23 sertraline 50 mg tablet (Zoloft) 50 mg PO DAILY 06/06/23 08/11/23 Allergies Allergy/AdvReac Type Severity Reaction Status Date / Time grass pollen Allergy Intermediate Hives Verified 09/22/23 10:37 amoxicillin [From Augmentin] Allergy Hives Verified 09/22/23 10:37 asenapine [From Saphris] Allergy Hives Verified 09/22/23 10:37 bacitracin Allergy Rash Verified 09/22/23 10:37 [From Neosporin ([id number])] clavulanic acid Allergy Hives Verified 09/22/23 10:37 [From Augmentin] erythromycin base Allergy Hives Verified 09/22/23 10:37 haloperidol [From Haldol] Allergy Swelling Verified 09/22/23 10:37 of Lip/Tongue/Throat latex Allergy Rash Verified 09/22/23 10:37 neomycin Allergy Rash Verified 09/22/23 10:37 [From Neosporin ([id number])] olanzapine [From Zyprexa] Allergy Swelling Verified 09/22/23 10:37 of Lip/Tongue/Throat polymyxin B Allergy Rash Verified 09/22/23 10:37 [From Neosporin ([id number])] risperidone [From Risperdal] Allergy Hives Verified 09/22/23 10:37 tramadol [From Ultram] Allergy Rash Verified 09/22/23 10:37 ciprofloxacin AdvReac Vomiting Verified 09/22/23 10:37 ibuprofen AdvReac Vomiting Verified 09/22/23 10:37 Steriod AdvReac Agitated Uncoded 09/22/23 10:37 Review of Systems Review of Systems: All systems reviewed & are unremarkable except as noted in HPI and below PMFSH Past Medical History Medical History Ankle fracture, lateral malleolus, closed December 2022 Anxiety Bipolar mood disorder Carcinoma of right ureter Chronic obstructive pulmonary disease Distal radial fracture December 2022 Migraine Schizophrenia Seizure Suicide attempt Tobacco dependence Surgical History Surgical History H/O dilation and curettage H/O foot surgery 2021 X2 H/O tubal ligation H/O: hysterectomy 2000 History of back surgery 1999 History of kidney surgery History of tonsillectomy History of ureterostomy Family History Family History Father Alcoholism Grandparent Diabetes mellitus Hypertension Heart disease Mother Kidney disease Grandparent Alcoholism Social History Social History Social History: Surrogate medical decision maker: Landy Silva, mother. Code status: Full code. Smoking packs per day: 1.5 Smoking cigarettes per day: 30.0 Years smoked: 45 Smoking pack-years: 67.50 Smoking status: Current every day smoker Tobacco type: cigarettes Second hand tobacco smoke exposure: No Alcohol intake: never Substance use: never Substance use type: painkillers and prescription drug Other substance usage details: something for headaches Last use: 03/25/23 Lack of Transportation: No Lack of Food: Never True Current Housing: I Have Housing Concerned About Future
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
--- NOTE | 2024-04-24 11:32 | PC.NURSE ---
Pts sister called back, stating her friend, Su, is going to come get the pt right now and bring her to her (glynn, the sister) house. Pt and EDP Dr. Santana aware.
--- NOTE | 2024-04-24 12:12 | PC.NURSE ---
Patient continuously yelling and swearing at staff members, pacing in the hallway, yelling at security. patient refusing assessment or vital signs.
== END 2024-04-24 12:14 | disposition home or self-care (01) ==
PROVIDERS: Emergency Provider Emergency Medicine; PCP Internal Medicine Gastroenterology
DX: F10.129 Alcohol abuse with intoxication, unspecified (principal); Y90.9 Presence of alcohol in blood, level not specified; J44.9 Chronic obstructive pulmonary disease, unspecified; F20.9 Schizophrenia, unspecified; F41.9 Anxiety disorder, unspecified; F31.9 Bipolar disorder, unspecified; F17.210 Nicotine dependence, cigarettes, uncomplicated; Z85.54 Personal history of malignant neoplasm of ureter; Z90.710 Acquired absence of both cervix and uterus
CPT/HCPCS: 99283

== ENCOUNTER 2024-07-25 04:02 | Inpatient (IN) | payer MEDICARE, MEDICAID, SELFPAY ==
[2024-07-25] VITALS (21 sets, daily range): BP systolic 92–143; BP diastolic 53–102; PULSE 53–150; RESP 15–24; TEMP 36.3–36.9; O2SAT 94–100; BMI 26.1
[2024-07-25 05:58] LABS: Basophils Absolute Auto 0.1 K/mm3 (0.0-0.1); Basophils Percent Auto 0.8 % (0.2-1.2); Eosinophils Absolute Auto 0.2 K/mm3 (0-0.3); Eosinophils Percent Auto 2.3 % (0-4.4); Hematocrit 43.1 % (37.0-47.0); Hemoglobin 14.6 g/dL (12.0-15.0); Immature Granulocyte Absolute 0.02 K/mm3 (0.00-0.031); Immature Granulocyte Percent A 0.3 % (0-0.5); Lymphocytes Absolute Auto 2.32 K/mm3 (0.9-3.2); Lymphocytes Percent Auto 31.5 % (18.3-44.2); Mean Corpuscular HGB Conc 33.9 g/dl (32-36); Mean Corpuscular Hemoglobin 36.4 pg (26-34); Mean Corpuscular Volume 107.5 fl (80-100); Mean Platelet Volume 9.3 fl (7.4-10.4); Monocytes Absolute Auto 0.8 K/mm3 (0.1-0.6); Monocytes Percent Auto 10.3 % (2.6-8.5); Neutrophils Percent Auto 54.8 % (45.5-73.1); Platelet Count Result 288 k/mm3 (150-375); Red Blood Count 4.01 M/mm3 (4.2-5.4); Red Cell Distribution Width 12.7 % (11.5-14.5); White Blood Count 7.4 K/mm3 (4.5-10.0)
[2024-07-25 06:07] LABS: Acetaminophen 16 ug/mL (10-30); Ethanol < 10 mg/dL (<10)
[2024-07-25 06:12] LABS: Alanine Aminotransferase 28 U/L (6-35); Albumin Level 4.6 g/dL (3.5-5.1); Alkaline Phosphatase 87 U/L (38-126); Anion Gap 9 mmol/L (4-12); Aspartate Amino Transferase 33 U/L (14-36); Bilirubin,Total 0.6 mg/dL (0.2-1.3); Blood Urea Nitrogen 10 mg/dL (7-17); Calcium 9.5 mg/dL (8.4-10.2); Carbon Dioxide 27 mmol/L (22-30); Chloride 104 mmol/L (98-107); Estimated CRCL calculation 106 ml/min; Estimated Glomerular Filt Rate > 60; Glucose 107 mg/dL (65-110); Potassium 3.7 mmol/L (3.4-5.0); Sodium 140 mmol/L (137-145)
--- NOTE | 2024-07-25 06:20 | PC.NURSE ---
poison control called. recommendation is provider give Acetadote. no further recommendations at this time.
[2024-07-25 06:25] LABS: Amphetamine Screen Urine Negative (Negative); Barbiturate Screen Urine Positive (Negative); Benzodiazepines Screen Urine Negative (Negative); Cannabinoid Screen Urine Negative (Negative); Cocaine Screen Urine Negative (Negative); Methadone Screen Urine Negative (Negative); Opiate Screen Urine Negative (Negative); Phencyclidine Screen Urine Negative (Negative)
[2024-07-25 06:33] LABS: SARS-CoV-2 RNA PCR Negative (Negative)
--- NOTE | 2024-07-25 06:36 | PC.NURSE ---
MD requesting RN to call back poison control and clarify their recommendations on Acetadote and fluids. Oraliaer answer is MD is able to make the decisions and whatever her decides.
[2024-07-25 06:38] LABS: Thyroid Stimulating Hormone Reflex 0.969 uIU/mL (0.465-4.68)
[2024-07-25] MEDS: SODIUM CHLORIDE 0.9% IV 1,000 ML 999 ML IV CONT (06:46)
--- NOTE | 2024-07-25 06:51 | ED_ITS ---
HPI - General Adult General Chief complaint: Alcohol Stated complaint: etoh Time Seen by Provider: 07/25/24 05:23 History of Present Illness HPI narrative: patient 58-year-old female who presents emergency department with chief complaint of possible alcohol intoxication. Family noticed that the patient was acting as though she was highly intoxicated the patient was denying suicidal or homicidal ideation but does have prior history of overdoses. The patient was found with a bottle of Fioricet laying next to her that have been filled on the and had initially 60 pills in it and was empty the patient denies being suicidal reports that she is not sure how many she took but states that she did not take the whole bottle Related Data Home Medications Medication Instructions Recorded Confirmed benztropine 2 mg tablet 0.5 mg PO Q8H PRN involuntary 04/18/22 08/11/23 movement prazosin 5 mg capsule 1 mg PO HS 04/18/22 08/11/23 ondansetron HCl 4 mg tablet 4 mg PO Q8H 11/22/22 08/11/23 chlorpromazine 100 mg tablet 50 mg PO Q12H 03/27/23 08/11/23 buspirone 15 mg tablet 15 mg PO TID 03/28/23 08/11/23 gabapentin 300 mg capsule 600 mg PO TID 05/25/23 08/11/23 sertraline 50 mg tablet (Zoloft) 50 mg PO DAILY 06/06/23 08/11/23 Allergies Allergy/AdvReac Type Severity Reaction Status Date / Time grass pollen Allergy Intermediate Hives Verified 09/22/23 10:37 amoxicillin [From Augmentin] Allergy Hives Verified 09/22/23 10:37 asenapine [From Saphris] Allergy Hives Verified 09/22/23 10:37 bacitracin Allergy Rash Verified 09/22/23 10:37 [From Neosporin ([id number])] clavulanic acid Allergy Hives Verified 09/22/23 10:37 [From Augmentin] erythromycin base Allergy Hives Verified 09/22/23 10:37 haloperidol [From Haldol] Allergy Swelling Verified 09/22/23 10:37 of Lip/Tongue/Throat latex Allergy Rash Verified 09/22/23 10:37 neomycin Allergy Rash Verified 09/22/23 10:37 [From Neosporin ([id number])] olanzapine [From Zyprexa] Allergy Swelling Verified 09/22/23 10:37 of Lip/Tongue/Throat polymyxin B Allergy Rash Verified 09/22/23 10:37 [From Neosporin ([id number])] risperidone [From Risperdal] Allergy Hives Verified 09/22/23 10:37 tramadol [From Ultram] Allergy Rash Verified 09/22/23 10:37 ciprofloxacin AdvReac Vomiting Verified 09/22/23 10:37 ibuprofen AdvReac Vomiting Verified 09/22/23 10:37 Steriod AdvReac Agitated Uncoded 09/22/23 10:37 Review of Systems Review of Systems: A 10 system review of systems was completed on the patient and is negative except for what is stated in the HPI. Nursing and ancillary documentation was reviewed. [facility] Past Medical History Medical History Ankle fracture, lateral malleolus, closed December 2022 Anxiety Bipolar mood disorder Carcinoma of right ureter Chronic obstructive pulmonary disease Distal radial fracture December 2022 Migraine Schizophrenia Seizure Suicide attempt Tobacco dependence Surgical History Surgical History H/O dilation and curettage H/O foot surgery 2021 X2 H/O tubal ligation H/O: hysterectomy 2000 History of back surgery 1999 History of kidney surgery History of tonsillectomy History of ureterostomy Family History Family History Father Alcoholism Grandparent Diabetes mellitus Hypertension Heart disease Mother Kidney disease Grandparent Alcoholism Social History Social History Social History: Surrogate medical decision maker: Landy Silva, mother. Code status: Full code. Smoking packs per day: 1.5 Smoking cigarettes per day: 30.0 Years smoked: 45 Smoking pack-years: 67.50 Smoking status: Current every day smoker Tobacco type: cigarettes Second hand tobacco smoke exposure: No Alcohol intake: never Substance use: never Substance use type: painkillers and prescription drug Other substance usage details: something for headaches Last use: 03/25/23 Lack of Transportation: No Lack of Food: Never True Current Housing: I Have Housing Concerned About Future Housing: No Difficulty Paying Gas/Electric Bills: No Difficulty Paying for Meds: No Currently Unemployed: No Education: High School Diploma/GED Difficulty w/ Childcare or Family Care: No Living arrangements: with family Additional living arrangements comments: Lives with mother in [place]. Occupation/Education: unemployed Additional occupation/education comments: Disabled. Spiritual care concerns: No Exam Narrative: GENERAL: appears to be acutely intoxicated HEAD: Normocephalic, atraumatic. EYES: PERRLA and EOMI. ENT: Nares clear, no rhinorrhea or epistaxis. Mucous membranes moist. NECK: Supple. CHEST: Clear to auscultation. No respiratory distress. HEART: Regular rate and rhythm. No murmur heard. Normal peripheral pulses. ABDOMEN: Soft, nontender, nondistended, normal active bowel sounds. EXTREMITIES: Normal range of motion. No edema. SKIN: Warm, dry, no rash. NEURO: No focal deficits. Alert and oriented x3. denies suicidal or homicidal ideation PSYCH: Normal mood and affect. Course Vital Signs Vital signs: Vital Signs Temperature 36.8 C 07/25/24 04:03 Pulse Rate 79 07/25/24 04:03 Respiratory Rate 16 07/25/24 04:03 Blood Pressure 92/53 L 07/25/24 04:03 Pulse Oximetry 96 07/25/24 04:03 Oxygen Delivery Room Air 07/25/24 04:03 Temperature 36.8 C 07/25/24 04:03 Pulse Rate 74 07/25/24 06:16 Respiratory Rate 18 07/25/24 06:16 Blood Pressure 120/83 07/25/24 06:16 Pulse Oximetry 99 07/25/24 06:16 Oxygen Delivery Room Air 07/25/24 04:03 Medical Decision Making [facility] Narrative Medical decision making narrative: differential diagnosis includes acetaminophen toxicity secondary to Fioricet ingestion, barbiturate overdose, alcohol intoxication laboratory studies were obtained on the patient showed negative ETOH toxicology is positive for barbiturates. Acetaminophen level was 16. A repeat acetaminophen level was obtained. Discussion with poison Control given the amount of medications that she possibly took they recommended starting seated on her empirically and recommended continue hydration. The case is discussed with the hospitalist and the case will be discussed with the builder beam for admission Vital Signs Vital Signs: Vital Signs Temperature 36.8 C 07/25/24 04:03 Pulse Rate 79 07/25/24 04:03 Respiratory Rate 16 07/25/24 04:03 Blood Pressure 92/53 L 07/25/24 04:03 Pulse Oximetry 96 07/25/24 04:03 Oxygen Delivery Room Air 07/25/24 04:03 Temperature 36.8 C 07/25/24 04:03 Pulse Rate 74 07/25/24 06:16 Respiratory Rate 18 07/25/24 06:16 Blood Pressure 120/83 07/25/24 06:16 Pulse Oximetry 99 07/25/24 06:16 Oxygen Delivery Room Air 07/25/24 04:03 Lab Data 07/25/24 05:39 07/25/24 05:39 Labs: Lab Results 07/25/24 07/25/24 07/25/24 Range/Units 05:38 05:39 05:46 WBC Pending RBC Pending Hgb Pending Hct Pending MCV Pending MCH Pending MCHC Pending RDW Pending Plt Count Pending MPV Pending Immature Gran % (Auto) Pending Neut % (Auto) Pending Lymph % (Auto) Pending [place] % (Auto) Pending Eos % (Auto) Pending Baso % (Auto) Pending Lymph # (Auto) Pending [place] # (Auto) Pending Eos # (Auto) Pending Baso # (Auto) Pending Abs Immat Gran (auto) Pending Absolute Neuts (auto) Pending Absolute Nucleated RBC Pending Nucleated RBC % Pending Sodium 140 (137-145) mmol/L Potassium 3.7 (3.4-5.0) mmol/L Chloride 104 (98-107) mmol/L Carbon Dioxide 27 (22-30) mmol/L Anion Gap 9 (4-12) mmol/L BUN 10 D (7-17) mg/dL Creatinine 0.50 L (0.7-1.0) mg/dL Estim Creat Clear Calc 106 ml/min Estimated GFR > 60 (59 - ) Glucose 107 (65-110) mg/dL Calcium 9.5 (8.4-10.2) mg/dL Total Bilirubin 0.6 (0.2-1.3) mg/dL AST 33 (14-36) U/L ALT 28 (6-35) U/L Alkaline Phosphatase 87 (38-126) U/L Total Protein 9.0 H (6.3-8.2) g/dL Albumin 4.6 (3.5-5.1) g/dL TSH (Reflex) 0.969 (0.465-4.68) uIU/mL Urine Color Pending Urine Appearance Pending Urine pH Pending Ur Specific [place] Pending Urine Protein Pending Urine Glucose (UA) Pending Urine Ketones Pending Ur Blood (Man) Pending Urine Nitrate Pending Urine Bilirubin Pending Urine Urobilinogen Pending Leukocyte Esterase Rfl Pending Urine Opiates Screen Negative (Negative) Urine Methadone Screen Negative (Negative) Acetaminophen 16 (10-30) ug/mL Ur Barbiturates Screen Positive A (Negative) Ur Phencyclidine Scrn Negative (Negative) Ur Amphetamine Screen Negative (Negative) U Benzodiazepines Scrn Negative (Negative) Urine Cocaine Screen Negative (Negative) U Cannabinoids Screen Negative (Negative) Ethyl Alcohol < 10 (<10) mg/dL SARS-CoV-2 RNA (RT-PCR) Negative (Negative) Critical Care Time Critical Care Time Critical Care Time: Yes Total Critical Care Time: 30 Discharge Plan Discharge Clinical Impression: Drug overdose Patient Disposition: Still a Patient Condition: Stable Prescriptions: No Action ondansetron HCl 4 mg tablet 4 mg PO Q8H sertraline [Zoloft] 50 mg tablet 50 mg PO DAILY chlorpromazine 100 mg tablet 50 mg PO Q12H buspirone 15 mg tablet 15 mg PO TID hydroxyzine HCl 50 mg tablet 50 mg PO TID PRN (Reason: anxiety) Qty: 20 0RF prazosin 5 mg capsule 1 mg PO HS benztropine 2 mg tablet 0.5 mg PO Q8H PRN (Reason: involuntary movement) gabapentin 300 mg capsule 600 mg PO TID Follow-up/Referrals: Sera,Neil Fang MD [Primary Care Provider] - Time of Disposition: 06:54
[2024-07-25] MEDS: ACETYLCYSTEINE IV 12,000 MG in DEXTROSE 5% IN WATER 200 ML 260 MG IVPB (07:28)
[2024-07-25 07:40] LABS: Macrocytosis 1+ (NORMAL); Platelet Estimate Adequate (Adequate); Schistocytes None Seen
[2024-07-25 07:41] LABS: Add Urine Microscopic? YES; Appearance Urine Cloudy (Clear); Bacteria Urine 4+ /hpf; Bilirubin Urine Negative (Negative); Blood Urine Negative (Negative); Color Urine Yellow (Yellow); Glucose Urine UA Negative (Negative); Ketones Urine Negative (Negative); Leukocyte Esterase Ur 2+ LEU/UL (Negative); Nitrate Urine Negative (Negative); Non Pathogenic Casts 0-2; Protein Urine Trace mg/dL (Negative); RBC Urine 0-2 /hpf (0-2); Specific Grav Ur 1.017 (1.001-1.035); Squamous Epithelial Cell Urine None Seen /hpf (Few); Urobilinogen Urine 0.2 mg/dL (<2.0); WBC Clumps Urine Present /HPF; WBC Urine 51-100 /hpf (0-3)
--- NOTE | 2024-07-25 08:46 | ADMGEN ---
This patient, Mahnaz Oseguera, was admitted to Intensive Care Unit-8 at 0846. Patient/family oriented to hospital policies and general routines including ID bracelet, bed and alarms, visiting hours, pain management, procedures, bathroom and other care routines, personal items, smoking policy, room service/diet, and visiting hours. Information on how to activate the Rapid Response Team has been discussed. Patient/Family are encouraged to report perceived risks to care and to ask questions if they do not understand what they are told or what they should do.
[2024-07-25] MEDS: dexmedeTOMIDine 400 MCG/100 ML 400 MCG/100 ML BAG 7.99 MCG IV CONT (09:31)
[2024-07-25] MEDS: LACTATED RINGERS 1,000 ML 999 ML IV CONT (09:31)
--- NOTE | 2024-07-25 09:44 | WPDCNINT ---
Assessment and Plan Assessment and plan (1) Acute drug overdose: Qualifiers: Encounter type: subsequent encounter Injury intent: intentional self-harm Qualified Code(s): T50.902D - Poisoning by unspecified drugs, medicaments and biological substances, intentional self-harm, subsequent encounter Code(s): T50.901A - Poisoning by unspecified drugs, medicaments and biological substances, accidental (unintentional), initial encounter Status: Acute Assessment and Plan: 07/25/2024: Presented the ED with alcohol intoxication and likely Fioricet overdose as patient's family found an empty bottle of Fioricet which was recently filled on 07/23/2024 for 60 pills. - Patient in the ER denies any suicidal report and that she is not sure how many pills did she take -patient in the ICU was uncooperative, confused but denied any drug overdose -urine tox screen was positive for barbiturate, Tylenol levels were 16 repeat INR level was < 10. -poison control was notified from the ER, recommended N acetylcystine which was started, will continue here in the ICU also -creatinine is stable, patient received 1 unit of IV fluid bolus in the ER will repeat another 1 L IV fluid bolus in the ICU -patient is currently awake, alert but confused, will continue to monitor closely in the ICU (2) Suicide attempt: Code(s): T14.91XA - Suicide attempt, initial encounter Status: Acute Assessment and Plan: Unable to assess at this time with a she is suicidal or not -we will place her on suicide precautions for now -and she is medically stable will have care coordination and crisis management evaluate the patient (3) Tobacco dependence: Code(s): F17.200 - Nicotine dependence, unspecified, uncomplicated Status: Acute Assessment and Plan: History of tobacco dependence (4) Schizophrenia: Code(s): F20.9 - Schizophrenia, unspecified Status: Acute Assessment and Plan: History of schizophrenia - benztropine, buspirone, chlorpromazine, gabapentin, prazosin and sertraline, are on her re-consultation meds, will have bedside added confirm. -continue to hold all these medications for now (5) Bipolar mood disorder: Code(s): F31.9 - Bipolar disorder, unspecified Status: Acute Assessment and Plan: Multiple psych medications as above (6) Urinary tract infection, site not specified: Code(s): N39.0 - Urinary tract infection, site not specified Status: Acute Assessment and Plan: UA was positive -patient has had E coli and Klebsiella pneumonia in the past which were resistant to fluoroquinolones -patient started on ceftriaxone (07/25) -07/25: urine and blood cultures have been obtained Plan DVT prophylaxis: Stress ulcer prophylaxis: Not indicated Nutrition: NPO for now, will start with clear liquid diet once she is more awake Code Status: Full code Critical Care Time Spent: 49 minutes Due to a high probability of clinically significant, life threatening deterioration, the patient required my highest level of preparedness to intervene emergently and I personally spent this critical care time directly and personally managing the patient. This critical care time included obtaining a history; examining the patient; pulse oximetry; ordering and review of studies; arranging urgent treatment with development of a management plan; evaluation of patient's response to treatment; frequent reassessment; and discussions with other providers. It was exclusive of separately billable procedures and treating other patients and teaching time. Please see Assessment and Plan section and the rest of the note for further information on patient assessment and treatment This dictation may have been done utilizing a voice recognition system. Attempts have been made to correct errors. However, there may be uncorrected grammatical, spelling, and recognitions errors present. 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 Vanegas on 08/05/2023 at [facility] for her ureter malignancy, presented to the ED on 07/25/2024 with alcohol intoxication and likely Fioricet overdose as patient's family found an empty bottle of Fioricet which was recently filled on 07/23/2024 for 60 pills. Patient in the ER denies any suicidal report and that she is not sure how many pills did she take. Patient has been agitated, uncooperative. Poison Control was contacted from the ER and recommended starting N acetyl cystine. Urine drug screen positive for barbiturates, done levels were 16, alcohol level was < 10. CBC was within normal limits, except MCV of 107. Electrolytes were within normal limits, creatinine of 0.5, LFTs and bilirubin within normal limits. Urine analysis was positive for leukocyte Estrace, 51-100 wbc's, urine WBC clumps are present, 4+ bacteria. Urine and blood cultures were obtained. Patient was transferred to the ICU for further management Patient seen and examined the ICU, is confused, not cooperative with the medical staff. Was not allowing them to place blood pressure cuff or chest leads further monitor. Started patient on low-dose Precedex. Patient received 1 L of IV fluid bolus in the ER, patient was started on N acetylcystine in the ER and will continue a peer in the ICU. Patient follows simple commands but is unable to answer questions appropriately as she is confused, tangential speech, groggy. Review of Systems Review of Systems: ROS unobtainable: Yes unobtainable due to mental status PMFSH Past Medical History Medical History Ankle fracture, lateral malleolus, closed December 2022 Anxiety Bipolar mood disorder Carcinoma of right ureter Chronic obstructive pulmonary disease Distal radial fracture December 2022 Migraine Schizophrenia Seizure Suicide attempt Tobacco dependence Surgical History Surgical History H/O dilation and curettage H/O foot surgery 2021 X2 H/O tubal ligation H/O: hysterectomy 2000 History of back surgery 1999 History of kidney surgery History of tonsillectomy History of ureterostomy Family History Family History Father Alcoholism Grandparent Diabetes mellitus Hypertension Heart disease Mother Kidney disease Grandparent Alcoholism Social History Social History Social History: Surrogate medical decision maker: Landy Silva, mother. Code status: Full code. Smoking packs per day: 1.5 Smoking cigarettes per day: 30.0 Years smoked: 45 Smoking pack-years: 67.50 Smoking status: Current every day smoker Second hand tobacco smoke exposure: No Alcohol intake: unknown Substance use: unknown Substance use type: unknown Other substance usage details: something for headaches Last use: 03/25/23 Lack of Transportation: No Lack of Food: Never True Current Housing: I Have Housing Concerned About Future Housing: No Difficulty Paying Gas/Electric Bills: No Difficulty Paying for Meds: No Currently Unemployed: No Education: High School Diploma/GED Difficulty w/ Childcare or Family Care: No Living arrangements: with family Additional living arrangements comments: Lives with mother in [place]. Occupation/Education: unemployed Additional occupation/education comments: Disabled. Spiritual care concerns: No Meds Home Medications and Allergies Home Medications Medication Instructions Recorded Confirmed Type benztropine 2 mg tablet 0.5 mg PO Q8H PRN involuntary 04/18/22 08/11/23 History movement prazosin 5 mg capsule 1 mg PO HS 04/18/22 08/11/23 History ondansetron HCl 4 mg tablet 4 mg PO Q8H 11/22/22 08/11/23 History chlorpromazine 100 mg tablet 50 mg PO Q12H 03/27/23 08/11/23 History buspirone 15 mg tablet 15 mg PO TID 03/28/23 08/11/23 History gabapentin 300 mg capsule 600 mg PO TID 05/25/23 08/11/23 History sertraline 50 mg tablet (Zoloft) 50 mg PO DAILY 06/06/23 08/11/23 History hydroxyzine HCl 50 mg tablet 50 mg PO TID PRN anxiety #20 tabs 09/20/23 Rx Allergies Allergy/AdvReac Type Severity Reaction Status Date / Time grass pollen Allergy Intermediate Hives Verified 09/22/23 10:37 amoxicillin [From Augmentin] Allergy Hives Verified 09/22/23 10:37 asenapine [From Saphris] Allergy Hives Verified 09/22/23 10:37 bacitracin Allergy Rash Verified 09/22/23 10:37 [From Neosporin ([id number])] clavulanic acid Allergy Hives Verified 09/22/23 10:37 [From Augmentin] erythromycin base Allergy Hives Verified 09/22/23 10:37 haloperidol [From Haldol] Allergy Swelling Verified 09/22/23 10:37 of Lip/Tongue/Throat latex Allergy Rash Verified 09/22/23 10:37 neomycin Allergy Rash Verified 09/22/23 10:37 [From Neosporin ([id number])] olanzapine [From Zyprexa] Allergy Swelling Verified 09/22/23 10:37 of Lip/Tongue/Throat polymyxin B Allergy Rash Verified 09/22/23 10:37 [From Neosporin ([id number])] risperidone [From Risperdal] Allergy Hives Verified 09/22/23 10:37 tramadol [From Ultram] Allergy Rash Verified 09/22/23 10:37 ciprofloxacin AdvReac Vomiting Verified 09/22/23 10:37 ibuprofen AdvReac Vomiting Verified 09/22/23 10:37 Steriod AdvReac Agitated Uncoded 09/22/23 10:37 Vital Signs Vital Signs - 24 hr 07/25/24 04:03 07/25/24 06:16 07/25/24 07:34 Temperature 98.2 F Pulse Rate 79 74 150 H Respiratory Rate 16 18 19 Blood Pressure 92/53 L 120/83 143/102 H Pulse Oximetry 96 99 98 Oxygen Delivery Room Air 07/25/24 08:34 07/25/24 09:31 Temperature Pulse Rate 143 H 136 H Respiratory Rate 19 20 Blood Pressure 122/85 Pulse Oximetry 100 Oxygen Delivery Exam Narrative: General: Uncooperative patient, in no acute distress HEENT:? Pupils are equal and reactive, sclera is clear, moist oral mucosa, no dentition Neck:? Supple Respiratory:? Clear to auscultation bilaterally, no wheezing Cardiac:? S1-S2 is normal, sinus tachycardia Abdomen:? Soft, nontender, nondistended, normoactive bowel sounds Extremities:? No edema, palpable pedal pulses Neuro:? Patient is awake, but groggy, disoriented, confused. Follows simple commands but unable to answer most of my questions, tangential speech Skin:? Warm and dry with tattoos noted Psych:? Confused, disoriented Results Labs 07/25/24 05:39 07/25/24 05:39 Labs: Short CBC 07/25/24 Range/Units 05:39 WBC 7.4 (4.5-10.0) K/mm3 Hgb 14.6 D (12.0-15.0) g/dL Hct 43.1 (37.0-47.0) % Plt Count 288 D (150-375) k/mm3 BMP 07/25/24 05:39 Sodium 140 Potassium 3.7 Chloride 104 Carbon Dioxide 27 BUN 10 D Creatinine 0.50 L Glucose 107 Calcium 9.5 Liver Function 07/25/24 Range/Units 05:39 Total Bilirubin 0.6 (0.2-1.3) mg/dL AST 33 (14-36) U/L ALT 28 (6-35) U/L Alkaline Phosphatase 87 (38-126) U/L Albumin 4.6 (3.5-5.1) g/dL Urine 07/25/24 Range/Units 05:39 Urine Color Yellow (Yellow) Urine Appearance Cloudy H (Clear) Urine pH 5.0 (5.0-9.0) Ur Specific [place] 1.017 (1.001-1.035) Urine Protein Trace (Negative) mg/dL Urine Glucose (UA) Negative (Negative) mg/dL Hospitalist MIPS Advance Care Plan I have confirmed that the patient's Advanced Care Plan is present, code status is documented, or surrogate decision maker is listed in patient medical record.: Yes Medication Reconciliation I have utilized all available resources to obtain, update and review the patients current medications (includes all prescriptions, OTC, herbals, cannabis, and nutritional supplements).: Yes
[2024-07-25 09:54] LABS: Acetaminophen < 10 ug/mL (10-30)
[2024-07-25] MEDS: ACETYLCYSTEINE IV 4,000 MG in DEXTROSE 5% IN WATER 500 ML 130 MG IVPB (10:10)
[2024-07-25 11:10] LABS: Salicylate < 1.0 mg/dL (2-20)
[2024-07-25] MEDS: cefTRIAXone 2 GM/NS 100 ML 2 GM/100 ML BAG IVPB ×2 (11:10→21:16)
[2024-07-25 11:29] LABS: MRSA (PCR) NOT DETECTED (NOT DETECTE)
--- NOTE | 2024-07-25 11:40 | PC.NURSE ---
Patient sitter came out of room requesting assistance in room. RN went to assess situation. Patient sitting in saturated bed covered in urine. Clean linens brought into room to get patient cleaned up. Patient preceded to give RN a middle finger , patient proceeded to call RN a fucking Bitch and continued to yell Don't fucking touch me you bitch . RN continued to encourage patient to allow RN to clean patient. Patient continues to resist care and refuses bed linens to be changed at this time. Patient refuses RN to get near her to assess medications or look at IV sites. Bed alarms on and call light within reach, RN to come back and check on patient. Sitter remains in room. MD updated and made aware.
--- NOTE | 2024-07-25 12:29 | PC.NURSE ---
Went to check on patient at 1229, patient sleeping, tried adjusting blood pressure cuff and patient continued to cuss at staff saying get off me you fucking bitch . RN able to change linens underneath patient. Patient became more restless and combative, refusing to roll and continuing to say fuck you to staff. Patient now on dry linens but refusing staff to change gown at this time. Patient refusing blankets. Patient keeps saying leave me the fuck alone bitch . Bed alarms set, call light within reach, and sitter remains in room. RN to come back and check on patient.
--- NOTE | 2024-07-25 13:34 | PM.IMHP ---
H&P: HPI History of Present Illness Date/Time: 07/25/24 13:34 Chief Complaint: Drug overdose Narrative: This patient is a 58-year-old female who presents emergency department with possible overdose. Family noticed that the patient was acting as though she was highly intoxicated. the patient was denying suicidal or homicidal ideation but does have prior history of overdoses. The patient was found with a bottle of Fioricet laying next to her that have been filled on the and had initially 60 pills in it and was empty the patient denies being suicidal. she is currently confused and intermittently agitated, so much history could not be taken. Review of Systems Review of Systems: ROS unobtainable: Yes unobtainable due to mental status PMFSH Past Medical History Medical History Ankle fracture, lateral malleolus, closed December 2022 Anxiety Bipolar mood disorder Carcinoma of right ureter Chronic obstructive pulmonary disease Distal radial fracture December 2022 Migraine Schizophrenia Seizure Suicide attempt Tobacco dependence Surgical History Surgical History H/O dilation and curettage H/O foot surgery 2021 X2 H/O tubal ligation H/O: hysterectomy 2000 History of back surgery 1999 History of kidney surgery History of tonsillectomy History of ureterostomy Family History Family History Father Alcoholism Grandparent Diabetes mellitus Hypertension Heart disease Mother Kidney disease Grandparent Alcoholism Social History Social History Social History: Surrogate medical decision maker: Landy Silva, . Code status: Full code. Smoking packs per day: 1.5 Smoking cigarettes per day: 30.0 Years smoked: 45 Smoking pack-years: 67.50 Smoking status: Current every day smoker Second hand tobacco smoke exposure: No Alcohol intake: unknown Substance use: unknown Substance use type: unknown Other substance usage details: something for headaches Last use: 03/25/23 Lack of Transportation: No Lack of Food: Never True Current Housing: I Have Housing Concerned About Future Housing: No Difficulty Paying Gas/Electric Bills: No Difficulty Paying for Meds: No Currently Unemployed: No Education: High School Diploma/GED Difficulty w/ Childcare or Family Care: No Living arrangements: with family Additional living arrangements comments: Lives with mother in [place]. Occupation/Education: unemployed Additional occupation/education comments: Disabled. Spiritual care concerns: No Meds Home Medications and Allergies Home Medications Medication Instructions Recorded Confirmed Type benztropine 2 mg tablet 0.5 mg PO Q8H PRN involuntary 04/18/22 08/11/23 History movement prazosin 5 mg capsule 1 mg PO HS 04/18/22 08/11/23 History ondansetron HCl 4 mg tablet 4 mg PO Q8H 11/22/22 08/11/23 History chlorpromazine 100 mg tablet 50 mg PO Q12H 03/27/23 08/11/23 History buspirone 15 mg tablet 15 mg PO TID 03/28/23 08/11/23 History gabapentin 300 mg capsule 600 mg PO TID 05/25/23 08/11/23 History sertraline 50 mg tablet (Zoloft) 50 mg PO DAILY 06/06/23 08/11/23 History hydroxyzine HCl 50 mg tablet 50 mg PO TID PRN anxiety #20 tabs 09/20/23 Rx Allergies Allergy/AdvReac Type Severity Reaction Status Date / Time grass pollen Allergy Intermediate Hives Verified 09/22/23 10:37 amoxicillin [From Augmentin] Allergy Hives Verified 09/22/23 10:37 asenapine [From Saphris] Allergy Hives Verified 09/22/23 10:37 bacitracin Allergy Rash Verified 09/22/23 10:37 [From Neosporin ([id number])] clavulanic acid Allergy Hives Verified 09/22/23 10:37 [From Augmentin] erythromycin base Allergy Hives Verified 09/22/23 10:37 haloperidol [From Haldol] Allergy Swelling Verified 09/22/23 10:37 of Lip/Tongue/Throat latex Allergy Rash Verified 09/22/23 10:37 neomycin Allergy Rash Verified 09/22/23 10:37 [From Neosporin ([id number])] olanzapine [From Zyprexa] Allergy Swelling Verified 09/22/23 10:37 of Lip/Tongue/Throat polymyxin B Allergy Rash Verified 09/22/23 10:37 [From Neosporin ([id number])] risperidone [From Risperdal] Allergy Hives Verified 09/22/23 10:37 tramadol [From Ultram] Allergy Rash Verified 09/22/23 10:37 ciprofloxacin AdvReac Vomiting Verified 09/22/23 10:37 ibuprofen AdvReac Vomiting Verified 09/22/23 10:37 Steriod AdvReac Agitated Uncoded 09/22/23 10:37 Vital Signs Vital Signs - 24 hr 07/25/24 04:03 07/25/24 06:16 07/25/24 07:34 Temperature 98.2 F Pulse Rate 79 74 150 H Respiratory Rate 16 18 19 Blood Pressure 92/53 L 120/83 143/102 H Pulse Oximetry 96 99 98 Oxygen Delivery Room Air 07/25/24 08:34 07/25/24 09:31 07/25/24 10:00 Temperature Pulse Rate 143 H 136 H 129 H Respiratory Rate 19 20 24 H Blood Pressure 122/85 93/74 L Pulse Oximetry 100 97 Oxygen Delivery 07/25/24 10:00 07/25/24 09:05 07/25/24 11:09 Temperature 97.6 F Pulse Rate 128 H 140 H 122 H Respiratory Rate 20 17 Blood Pressure 109/98 H 104/84 Pulse Oximetry 96 99 Oxygen Delivery 07/25/24 10:31 07/25/24 11:31 Temperature Pulse Rate 128 H 130 H Respiratory Rate 20 20 Blood Pressure Pulse Oximetry Oxygen Delivery Exam Narrative: General: Uncooperative patient, in no acute distress HEENT:? Pupils are equal and reactive, sclera is clear, moist oral mucosa, no dentition Neck:? Supple Respiratory:? Clear to auscultation bilaterally, no wheezing Cardiac:? S1-S2 is normal, sinus tachycardia Abdomen:? Soft, nontender, nondistended, normoactive bowel sounds Extremities:? No edema, palpable pedal pulses Neuro:? Patient is awake, confused. Follows simple commands but unable to answer most of my questions, tangential speech Skin:? Warm and dry with tattoos noted Psych:? Confused, disoriented H&P: Results Labs Labs: Short CBC 07/25/24 Range/Units 05:39 WBC 7.4 (4.5-10.0) K/mm3 Hgb 14.6 D (12.0-15.0) g/dL Hct 43.1 (37.0-47.0) % Plt Count 288 D (150-375) k/mm3 BMP 07/25/24 05:39 Sodium 140 Potassium 3.7 Chloride 104 Carbon Dioxide 27 BUN 10 D Creatinine 0.50 L Glucose 107 Calcium 9.5 Liver Function 07/25/24 Range/Units 05:39 Total Bilirubin 0.6 (0.2-1.3) mg/dL AST 33 (14-36) U/L ALT 28 (6-35) U/L Alkaline Phosphatase 87 (38-126) U/L Albumin 4.6 (3.5-5.1) g/dL Urine 07/25/24 Range/Units 05:39 Urine Color Yellow (Yellow) Urine Appearance Cloudy H (Clear) Urine pH 5.0 (5.0-9.0) Ur Specific [place] 1.017 (1.001-1.035) Urine Protein Trace (Negative) mg/dL Urine Glucose (UA) Negative (Negative) mg/dL Assessment and Plan Assessment and plan (1) Acute drug overdose: Qualifiers: Encounter type: subsequent encounter Injury intent: intentional self-harm Qualified Code(s): T50.902D - Poisoning by unspecified drugs, medicaments and biological substances, intentional self-harm, subsequent encounter Code(s): T50.901A - Poisoning by unspecified drugs, medicaments and biological substances, accidental (unintentional), initial encounter Status: Acute (2) Suicide attempt: Code(s): T14.91XA - Suicide attempt, initial encounter Status: Acute (3) Tobacco dependence: Code(s): F17.200 - Nicotine dependence, unspecified, uncomplicated Status: Acute (4) Schizophrenia: Code(s): F20.9 - Schizophrenia, unspecified Status: Acute (5) Bipolar mood disorder: Code(s): F31.9 - Bipolar disorder, unspecified Status: Acute (6) Urinary tract infection, site not specified: Code(s): N39.0 - Urinary tract infection, site not specified Status: Acute Plan This patient is a 58-year-old female who presents emergency department with possible overdose. Family noticed that the patient was acting as though she was highly intoxicated. the patient was denying suicidal or homicidal ideation but does have prior history of overdoses. The patient was found with a bottle of Fioricet laying next to her that have been filled on the and had initially 60 pills in it and was empty the patient denies being suicidal. she is currently confused and intermittently agitated, so much history could not be taken. Her Urine drug screen positive for barbiturates. Tylenol level 16. Poison Control contacted. Recommended N acetyl-cystine. Currently getting in ICU Suicide attempt suspected on suicide precautions History of schizophrenia History of bipolar disorder UTI on ceftriaxone DVT prophylaxis Lovenox Code status full code Hospitalist [facility] Advance Care Plan I have confirmed that the patient's Advanced Care Plan is present, code status is documented, or surrogate decision maker is listed in patient medical record.: Yes Medication Reconciliation I have utilized all available resources to obtain, update and review the patients current medications (includes all prescriptions, OTC, herbals, cannabis, and nutritional supplements).: Yes
[2024-07-25] MEDS: ACETYLCYSTEINE IVPB (14:13)
[2024-07-25] MEDS: DEXTROSE 5% IVPB (14:13)
[2024-07-25] MEDS: dexmedeTOMIDine 400 MCG/100 ML 400 MCG/100 ML BAG 11.99 MCG IV CONT (18:22)
--- NOTE | 2024-07-25 19:31 | PC.NURSE ---
Spoke with patient's sister Addie , family to bring in updated medication list for records. Patient unable to confirm medication status right now due to altered mentation.
[2024-07-25 19:57] LABS: Hepatitis B Surface Antigen Negative (Negative)
[2024-07-25 20:18] LABS: HIV 1/2 Ab P24 Ag Result Negative (Negative); Hepatitis C Virus Antibody Reactive (Negative)
[2024-07-26] VITALS (15 sets, daily range): BP systolic 97–162; BP diastolic 59–97; PULSE 50–100; RESP 14–27; TEMP 36.5–36.9; O2SAT 95–99
--- NOTE | 2024-07-26 04:00 | PC.NURSE ---
0330 Patient becoming increasingly agitated with staff. Patient being belligerent and crying. Patient requesting that staff leaves her alone and leaves the room. This RN informed patient that a sitter must remain with patient for SI precautions. This RN will continue to monitor paitent.
[2024-07-26 04:18] LABS: Basophils Percent Auto 0.5 % (0.2-1.2); Eosinophils Absolute Auto 0.1 K/mm3 (0-0.3); Eosinophils Percent Auto 1.6 % (0-4.4); Hematocrit 39.2 % (37.0-47.0); Hemoglobin 13.4 g/dL (12.0-15.0); Immature Granulocyte Absolute 0.01 K/mm3 (0.00-0.031); Immature Granulocyte Percent A 0.2 % (0-0.5); Lymphocytes Absolute Auto 1.73 K/mm3 (0.9-3.2); Lymphocytes Percent Auto 27.4 % (18.3-44.2); Mean Corpuscular HGB Conc 34.2 g/dl (32-36); Mean Corpuscular Hemoglobin 36.8 pg (26-34); Mean Corpuscular Volume 107.7 fl (80-100); Mean Platelet Volume 9.5 fl (7.4-10.4); Monocytes Absolute Auto 0.7 K/mm3 (0.1-0.6); Monocytes Percent Auto 11.1 % (2.6-8.5); Neutrophils Absolute Auto 3.8 K/mm3 (1.3-6.7); Neutrophils Percent Auto 59.2 % (45.5-73.1); Platelet Count Result 250 k/mm3 (150-375); Red Blood Count 3.64 M/mm3 (4.2-5.4); Red Cell Distribution Width 13.2 % (11.5-14.5); White Blood Count 6.3 K/mm3 (4.5-10.0)
[2024-07-26] MEDS: dexmedeTOMIDine 400 MCG/100 ML 400 MCG/100 ML BAG 11.99 MCG IV CONT (04:25)
[2024-07-26 04:31] LABS: Alanine Aminotransferase 23 U/L (6-35); Albumin Level 3.9 g/dL (3.5-5.1); Alkaline Phosphatase 57 U/L (38-126); Anion Gap 6 mmol/L (4-12); Aspartate Amino Transferase 34 U/L (14-36); Bilirubin,Total 0.5 mg/dL (0.2-1.3); Blood Urea Nitrogen 7 mg/dL (7-17); Calcium 9.4 mg/dL (8.4-10.2); Carbon Dioxide 27 mmol/L (22-30); Chloride 105 mmol/L (98-107); Creatine Kinase 259 U/L (30-135); Estimated CRCL calculation 109 ml/min; Estimated Glomerular Filt Rate > 60; Glucose 116 mg/dL (65-110); Phosphorus 3.2 mg/dL (2.5-4.5); Potassium 3.1 mmol/L (3.4-5.0); Sodium 138 mmol/L (137-145)
[2024-07-26 04:32] LABS: Ammonia 50 umol/L (9-30); Lactic Acid Reflex 1.3 mmol/L (0.7-2.0)
[2024-07-26 04:36] LABS: Prothrombin Time 13.2 Seconds (11.1-14.7)
[2024-07-26 04:54] LABS: Anisocytosis 1+; Platelet Estimate Adequate (Adequate); Schistocytes None Seen
[2024-07-26] MEDS: cefTRIAXone 2 GM/NS 100 ML 2 GM/100 ML BAG IVPB (08:25)
[2024-07-26] MEDS: POTASSIUM CHLORIDE 20 MEQ ER TABLET 40 MEQ PO (08:27)
[2024-07-26] MEDS: ENOXAPARIN 40 MG/0.4 ML SYRINGE SUB-Q (08:27)
[2024-07-26] MEDS: LACTULOSE 20 GM/30 ML UDC PO (08:27)
--- NOTE | 2024-07-26 09:47 | P.PNINT_ITS ---
Progress Note: A&P Assessment and Plan (1) Acute drug overdose: Qualifiers: Encounter type: subsequent encounter Injury intent: intentional self- harm Qualified Code(s): T50.902D - Poisoning by unspecified drugs, medicaments and biological substances, intentional self-harm, subsequent encounter Code(s): T50.901A - Poisoning by unspecified drugs, medicaments and biological substances, accidental (unintentional), initial encounter Status: Acute Assessment and Plan: 07/25/2024: Presented the ED with alcohol intoxication and likely Fioricet overdose as patient's family found an empty bottle of Fioricet which was recently filled on 07/23/2024 for 60 pills. - Patient in the ER denies any suicidal report and that she is not sure how many pills did she take -patient in the ICU was uncooperative, confused but denied any drug overdose -urine tox screen was positive for barbiturate, Tylenol levels were 16 repeat INR level was < 10. -poison control was notified from the ER, recommended N acetylcystine which was started, will continue here in the ICU also -creatinine is stable, patient received 1 unit of IV fluid bolus in the ER will repeat another 1 L IV fluid bolus in the ICU -patient is currently awake, alert but confused, will continue to monitor closely in the ICU 07/26: Patient is more awake, alert, able to answer questions appropriately and follow commands. Patient denies overdosing on Fioricet, she says she has chronic back pain and takes Fioricet here in the but she did not take the whole bottle. -Precedex has been turned off, -repeat LFTs this morning per poison Control recommendations were normal, N acetylcystine has been discontinued per poison control recommendation -patient is medically stable -will have care coordination and crisis management evaluate the patient (2) Suicide attempt: Code(s): T14.91XA - Suicide attempt, initial encounter Status: Acute Assessment and Plan: Unable to assess at this time with a she is suicidal or not -suicide precautions in place -bedside sitter -off Precedex infusion (3) Tobacco dependence: Code(s): F17.200 - Nicotine dependence, unspecified, uncomplicated Status: Acute Assessment and Plan: History of tobacco dependence -will place nicotine patch (4) Schizophrenia: Code(s): F20.9 - Schizophrenia, unspecified Status: Acute Assessment and Plan: History of schizophrenia - benztropine, buspirone, chlorpromazine, gabapentin, prazosin and sertraline, are on her re-consultation meds, -patient is unaware of her medications and doses, have asked the family to bring the list of her medications so that we can restart medications as appropriate (5) Bipolar mood disorder: Code(s): F31.9 - Bipolar disorder, unspecified Status: Acute Assessment and Plan: Multiple psych medications as above (6) Urinary tract infection, site not specified: Code(s): N39.0 - Urinary tract infection, site not specified Status: Acute Assessment and Plan: UA was positive -patient has had E coli and Klebsiella pneumonia in the past which were resistant to fluoroquinolones -patient started on ceftriaxone (07/25) -07/25: urine cultures are pending Plan DVT prophylaxis: Stress ulcer prophylaxis: Not indicated Nutrition: Will order regular diet Code Status: Full code Critical Care Time Spent: 31 minutes Due to a high probability of clinically significant, life threatening deterioration, the patient required my highest level of preparedness to intervene emergently and I personally spent this critical care time directly and personally managing the patient. This critical care time included obtaining a history; examining the patient; pulse oximetry; ordering and review of studies; arranging urgent treatment with development of a management plan; evaluation of patient's response to treatment; frequent reassessment; and discussions with other providers. It was exclusive of separately billable procedures and treating other patients and teaching time. Please see Assessment and Plan section and the rest of the note for further information on patient assessment and treatment This dictation may have been done utilizing a voice recognition system. Attempts have been made to correct errors. However, there may be uncorrected grammatical, spelling, and recognitions errors present. Subjective Date/time seen: 07/26/24 09:47 Interval history: Reason for consult: Fioricet overdose, alcohol intoxication 07/26/2024: Patient seen and examined the ICU, is awake, sitting up in bed, able to answer questions appropriately, she does not remember what medication she ta kes at home, stated that she takes Fioricet for pain but did not overdose she says she takes Fioricet here and there to control her pain. Patient is allergic to multiple pain medications. She denies any suicidal behavior. Remains on does Precedex with about the bedside RN to turn it off. Currently denies any chest pain, shortness with, abdominal pain, nausea vomiting. Complains of back pain which is chronic. Patient is afebrile, adequate urine output, hemodynamically stable Review of Systems Review of Systems: All systems reviewed & are unremarkable except as noted in HPI and below Exam Narrative: General: Patient is more awake, alert, cooperative and able to answer questions HEENT:? Pupils are equal and reactive, sclera is clear, moist oral mucosa, no dentition Neck:? Supple Respiratory:? Clear to auscultation bilaterally, no wheezing Cardiac:? S1-S2 is normal, sinus tachycardia Abdomen:? Soft, nontender, nondistended, normoactive bowel sounds Extremities:? No edema, palpable pedal pulses Neuro:? Patient is more awake, alert, able to answer questions and follows simple commands. Skin:? Warm and dry with tattoos noted Psych:? Normal mentation, depressed affect Objective Data Vital Signs Vital Signs: Vital Signs - 24 hr 07/25/24 10:00 07/25/24 10:00 07/25/24 11:09 Temperature 97.6 F Pulse Rate 129 H 128 H 122 H Respiratory Rate 24 H 17 Blood Pressure 93/74 L 104/84 Pulse Oximetry 97 99 07/25/24 10:31 07/25/24 11:31 07/25/24 12:00 Temperature 97.4 F L Pulse Rate 128 H 130 H 115 H Respiratory Rate 20 20 16 Blood Pressure 112/92 H Pulse Oximetry 94 07/25/24 14:00 07/25/24 13:31 07/25/24 15:13 Temperature 97.4 F L Pulse Rate 75 75 76 Respiratory Rate 24 H 18 15 Blood Pressure 98/77 L Pulse Oximetry 95 07/25/24 17:31 07/25/24 18:22 07/25/24 18:22 Temperature Pulse Rate 64 69 69 Respiratory Rate 19 23 H 23 H Blood Pressure Pulse Oximetry 07/25/24 16:00 07/25/24 18:00 07/25/24 12:00 Temperature 98.5 F Pulse Rate 62 66 111 H Respiratory Rate 16 19 Blood Pressure 109/64 112/93 H Pulse Oximetry 95 99 07/25/24 14:00 07/25/24 16:00 07/25/24 18:00 Temperature Pulse Rate 77 63 68 Respiratory Rate Blood Pressure Pulse Oximetry 11/16/24 20:00 07/25/24 22:00 07/25/24 23:17 Temperature Pulse Rate 61 53 L 56 L Respiratory Rate 17 17 17 Blood Pressure Pulse Oximetry 07/25/24 20:00 07/25/24 20:00 07/25/24 22:00 Temperature 98.3 F Pulse Rate 61 61 53 L Respiratory Rate 17 Blood Pressure 97/60 L Pulse Oximetry 99 07/25/24 22:00 07/26/24 00:00 07/26/24 00:00 Temperature Pulse Rate 53 L 50 L 50 L Respiratory Rate 17 16 Blood Pressure 98/72 L Pulse Oximetry 96 07/26/24 00:00 07/26/24 01:57 07/26/24 02:00 Temperature 97.7 F Pulse Rate 50 L 50 L 50 L Respiratory Rate 16 16 16 Blood Pressure 97/59 L Pulse Oximetry 95 07/26/24 02:00 07/26/24 02:00 07/26/24 03:25 Temperature Pulse Rate 50 L 50 L 64 Respiratory Rate 16 18 Blood Pressure 100/61 Pulse Oximetry 95 07/26/24 04:25 07/26/24 04:00 07/26/24 04:00 Temperature 97.7 F Pulse Rate 56 L 63 63 Respiratory Rate 14 26 H Blood Pressure 130/97 H Pulse Oximetry 98 07/26/24 06:00 07/26/24 06:00 07/26/24 08:00 Temperature 98 F Pulse Rate 54 L 54 L 60 Respiratory Rate 16 18 Blood Pressure 104/70 110/76 Pulse Oximetry 97 96 07/26/24 07:00 07/26/24 08:19 07/26/24 09:14 Temperature Pulse Rate 55 L 55 L 51 L Respiratory Rate 14 15 15 Blood Pressure Pulse Oximetry 07/26/24 08:00 Temperature Pulse Rate 53 L Respiratory Rate Blood Pressure Pulse Oximetry Intake/Output Intake/Output: Intake & Output 07/23/24 07/24/24 07/25/24 07/26/24 23:59 23:59 23:59 23:59 Intake Total 1619.0 1935.0 Output Total 220 300 Balance 1399.0 1635.0 Meds/Results Medications: Active Medications Generic Name Dose Route Start Last Admin Trade Name Freq PRN Reason Stop Dose Admin Enoxaparin Sodium 40 mg 07/25/24:00 07/26/24 08:27 Enoxaparin 40 Mg/0.4 Ml Syringe SUB-Q 40 mg DAILY BENEDICTO Administration Ceftriaxone Sodium 2 gm in 100 mls @ 200 mls/hr 07/25/24 10:25 07/26/24 08:55 Rocephin 2 Gm/Ns 100 Ml IVPB Infused Q12HR BENEDICTO Infusion Lactulose 20 gm 07/26/24 09:00 07/26/24 08:27 Lactulose 20 Gm/30 Ml Udc PO 07/28/24 08:59 20 gm QAM BENEDICTO Administration Ondansetron HCl 4 mg 07/25/24 06:51 Ondansetron Inj 4 Mg/2 Ml Vial IV PUSH Q4H PRN Nausea Labs Labs: Laboratory Results - last 24 hr 07/25/24 07/25/24 07/25/24 09:36 09:41 09:50 WBC RBC Hgb Hct MCV MCH MCHC RDW Plt Count MPV Immature Gran % (Auto) Neut % (Auto) Lymph % (Auto) [place] % (Auto) Eos % (Auto) Baso % (Auto) Lymph # (Auto) [place] # (Auto) Eos # (Auto) Baso # (Auto) Abs Immat Gran (auto) Absolute Neuts (auto) Absolute Nucleated RBC Nucleated RBC % Platelet Estimate Anisocytosis Schistocytes PT INR Sodium Potassium Chloride Carbon Dioxide Anion Gap BUN Creatinine Estim Creat Clear Calc Estimated GFR Glucose Lactic Acid Calcium Phosphorus Magnesium Total Bilirubin AST ALT Alkaline Phosphatase Ammonia Total Creatine Kinase Total Protein Albumin TSH Nasal MRSA (PCR) Not detected Salicylates < 1.0 L Acetaminophen < 10 L Hep Bs Antigen Hepatitis C Ab Screen HIV 1&2 Ab/P24 Ag 4thGn 07/25/24 07/26/24 19:08 04:12 WBC 6.3 RBC 3.64 L Hgb 13.4 Hct 39.2 MCV 107.7 H MCH 36.8 H MCHC 34.2 RDW 13.2 Plt Count 250 MPV 9.5 Immature Gran % (Auto) 0.2 Neut % (Auto) 59.2 Lymph % (Auto) 27.4 [place] % (Auto) 11.1 H Eos % (Auto) 1.6 Baso % (Auto) 0.5 Lymph # (Auto) 1.73 [place] # (Auto) 0.7 H Eos # (Auto) 0.1 Baso # (Auto) 0.0 Abs Immat Gran (auto) 0.01 Absolute Neuts (auto) 3.8 Absolute Nucleated RBC 0.000 Nucleated RBC % 0.0 Platelet Estimate Adequate Anisocytosis 1+ Schistocytes None seen PT 13.2 INR 1.0 Sodium 138 Potassium 3.1 L Chloride 105 Carbon Dioxide 27 Anion Gap 6 BUN 7 Creatinine 0.40 L Estim Creat Clear Calc 109 Estimated GFR > 60 Glucose 116 H Lactic Acid 1.3 Calcium 9.4 Phosphorus 3.2 Magnesium 2.0 Total Bilirubin 0.5 AST 34 ALT 23 Alkaline Phosphatase 57 Ammonia 50 H Total Creatine Kinase 259 H Total Protein 7.0 Albumin 3.9 TSH 1.520 Nasal MRSA (PCR) Salicylates Acetaminophen Hep Bs Antigen Negative Hepatitis C Ab Screen Reactive HIV 1&2 Ab/P24 Ag 4thGn Negative
[2024-07-26] MEDS: NICOTINE (*PBKC) 14 MG PATCH 1 PATCH TRANSDERM (10:36)
--- NOTE | 2024-07-26 14:01 | P.PNIM_ITS ---
Progress Note: A&P Assessment and Plan (1) Acute drug overdose: Qualifiers: Encounter type: subsequent encounter Injury intent: intentional self- harm Qualified Code(s): T50.902D - Poisoning by unspecified drugs, medicaments and biological substances, intentional self-harm, subsequent encounter Code(s): T50.901A - Poisoning by unspecified drugs, medicaments and biological substances, accidental (unintentional), initial encounter Status: Acute (2) Suicide attempt: Code(s): T14.91XA - Suicide attempt, initial encounter Status: Acute (3) Tobacco dependence: Code(s): F17.200 - Nicotine dependence, unspecified, uncomplicated Status: Acute (4) Schizophrenia: Code(s): F20.9 - Schizophrenia, unspecified Status: Acute (5) Bipolar mood disorder: Code(s): F31.9 - Bipolar disorder, unspecified Status: Acute (6) Urinary tract infection, site not specified: Code(s): N39.0 - Urinary tract infection, site not specified Status: Acute Plan This patient is a 58-year-old female who presents emergency department with possible overdose. Family noticed that the patient was acting as though she was highly intoxicated. the patient was denying suicidal or homicidal ideation but does have prior history of overdoses. The patient was found with a bottle of Fioricet laying next to her that have been filled on the and had initially 60 pills in it and was empty the patient denies being suicidal. She was confused and agitated on arrival to the ED. Her Urine drug screen positive for barbiturates. Tylenol level 16. Poison Control contacted. Recommended N acetyl-cystine. and was started on N-acetylcysteine. Treated in the ICU. she was placed on Precedex drip. This has been off since this a.m. she is Back to her baseline mental status now. Suicide attempt suspected on suicide precautions . medically stable and Will have crisis team see here History of schizophrenia resume home medications History of bipolar disorder UTI on ceftriaxone urine culture pending had DVT prophylaxis Lovenox Code status full code Subjective Date/time seen: 07/26/24 14:01 Interval history: No overnight events. Patient more awake and alert and conversant today. States was trying to take care of her pain and that is why took her meds. Unclear how much she took. However her whole bottle was empty. she is off Precedex drip. Review of Systems Review of Systems: All systems reviewed & are unremarkable except as noted in HPI and below Exam Narrative: General: Patient is more awake, alert, cooperative, Not in acute distress HEENT:? Pupils are equal and reactive, sclera is clear, moist oral mucosa, no dentition Neck:? Supple Respiratory:? Clear to auscultation bilaterally, no wheezing Cardiac:? S1-S2 is normal, regular rate, rhythm Abdomen:? Soft, nontender, nondistended, normoactive bowel sounds Extremities:? No edema, palpable pedal pulses Neuro:? Patient is more awake, alert, able to answer questions and follows simple commands. Skin:? Warm and dry with tattoos noted Psych:? Normal mentation, depressed affect Objective Data Vital Signs Vital Signs: Vital Signs - 24 hr 07/25/24 15:13 07/25/24 17:31 07/25/24 18:22 Temperature Pulse Rate 76 64 69 Respiratory Rate 15 19 23 H Blood Pressure Pulse Oximetry 07/25/24 18:22 07/25/24 16:00 07/25/24 18:00 Temperature 98.5 F Pulse Rate 69 62 66 Respiratory Rate 23 H 16 19 Blood Pressure 109/64 112/93 H Pulse Oximetry 95 99 07/25/24 16:00 07/25/24 18:00 07/25/24 20:00 Temperature Pulse Rate 63 68 61 Respiratory Rate 17 Blood Pressure Pulse Oximetry 07/25/24 22:00 07/25/24 23:17 07/25/24 20:00 Temperature Pulse Rate 53 L 56 L 61 Respiratory Rate 17 17 Blood Pressure Pulse Oximetry 07/25/24 20:00 07/25/24 22:00 07/25/24 22:00 Temperature 98.3 F Pulse Rate 61 53 L 53 L Respiratory Rate 17 17 Blood Pressure 97/60 L 98/72 L Pulse Oximetry 99 96 07/26/24 00:00 07/26/24 00:00 07/26/24 00:00 Temperature 97.7 F Pulse Rate 50 L 50 L 50 L Respiratory Rate 16 16 Blood Pressure 97/59 L Pulse Oximetry 95 07/26/24 01:57 07/26/24 02:00 07/26/24 02:00 Temperature Pulse Rate 50 L 50 L 50 L Respiratory Rate 16 16 Blood Pressure Pulse Oximetry 07/26/24 02:00 07/26/24 03:25 07/26/24 04:25 Temperature Pulse Rate 50 L 64 56 L Respiratory Rate 16 18 14 Blood Pressure 100/61 Pulse Oximetry 95 07/26/24 04:00 07/26/24 04:00 07/26/24 06:00 Temperature 97.7 F Pulse Rate 63 63 54 L Respiratory Rate 26 H Blood Pressure 130/97 H Pulse Oximetry 98 07/26/24 06:00 07/26/24 08:00 07/26/24 07:00 Temperature 98 F Pulse Rate 54 L 60 55 L Respiratory Rate 16 18 14 Blood Pressure 104/70 110/76 Pulse Oximetry 97 96 07/26/24 08:19 07/26/24 09:14 07/26/24 08:00 Temperature Pulse Rate 55 L 51 L 53 L Respiratory Rate 15 15 Blood Pressure Pulse Oximetry 07/26/24 10:00 Temperature Pulse Rate 75 Respiratory Rate 27 H Blood Pressure 111/86 Pulse Oximetry 96 Intake/Output Intake/Output: Intake & Output 07/23/24 07/24/24 07/25/24 07/26/24 23:59 23:59 23:59 23:59 Intake Total 1619.0 1935.0 Output Total 220 300 Balance 1399.0 1635.0 Meds/Results Medications: Active Medications Generic Name Dose Route Start Last Admin Trade Name Freq PRN Reason Stop Dose Admin Enoxaparin Sodium 40 mg 07/25/24 11:00 07/26/24 08:27 Enoxaparin 40 Mg/0.4 Ml Syringe SUB-Q 40 mg DAILY BENEDICTO Administration Ceftriaxone Sodium 2 gm in 100 mls @ 200 mls/hr 07/25/24 10:25 07/26/24 08:55 Rocephin 2 Gm/Ns 100 Ml IVPB Infused Q12HR BENEDICTO Infusion Lactulose 20 gm 07/26/24 09:00 07/26/24 08:27 Lactulose 20 Gm/30 Ml Udc PO 07/28/24 08:59 20 gm QAM BENEDICTO Administration Nicotine 1 patch 07/26/24 10:00 07/26/24 10:36 Nicotine (*Pbkc) 14 Mg Patch TRANSDERM 1 patch DAILY BENEDICTO Administration Ondansetron HCl 4 mg 07/25/24 06:51 Ondansetron Inj 4 Mg/2 Ml Vial IV PUSH Q4H PRN Nausea Labs Labs: Laboratory Results - last 24 hr 07/25/24 07/26/24 19:08 04:12 WBC 6.3 RBC 3.64 L Hgb 13.4 Hct 39.2 MCV 107.7 H MCH 36.8 H MCHC 34.2 RDW 13.2 Plt Count 250 MPV 9.5 Immature Gran % (Auto) 0.2 Neut % (Auto) 59.2 Lymph % (Auto) 27.4 [place] % (Auto) 11.1 H Eos % (Auto) 1.6 Baso % (Auto) 0.5 Lymph # (Auto) 1.73 [place] # (Auto) 0.7 H Eos # (Auto) 0.1 Baso # (Auto) 0.0 Abs Immat Gran (auto) 0.01 Absolute Neuts (auto) 3.8 Absolute Nucleated RBC 0.000 Nucleated RBC % 0.0 Platelet Estimate Adequate Anisocytosis 1+ Schistocytes None seen PT 13.2 INR 1.0 Sodium 138 Potassium 3.1 L Chloride 105 Carbon Dioxide 27 Anion Gap 6 BUN 7 Creatinine 0.40 L Estim Creat Clear Calc 109 Estimated GFR > 60 Glucose 116 H Lactic Acid 1.3 Calcium 9.4 Phosphorus 3.2 Magnesium 2.0 Total Bilirubin 0.5 AST 34 ALT 23 Alkaline Phosphatase 57 Ammonia 50 H Total Creatine Kinase 259 H Total Protein 7.0 Albumin 3.9 TSH 1.520 Hep Bs Antigen Negative Hepatitis C Ab Screen Reactive HIV 1&2 Ab/P24 Ag 4thGn Negative
--- NOTE | 2024-07-26 17:04 | P.DS_ITS ---
DS: Admitting Diagnosis Discharge Date 07/26/2024 Admitting Diagnosis Drug overdose DS: Discharge Diagnosis Discharge Diagnosis (1) Acute drug overdose: Qualifiers: Encounter type: subsequent encounter Injury intent: intentional self- harm Qualified Code(s): T50.902D - Poisoning by unspecified drugs, medicaments and biological substances, intentional self-harm, subsequent encounter Code(s): T50.901A - Poisoning by unspecified drugs, medicaments and biological substances, accidental (unintentional), initial encounter Status: Acute (2) Suicide attempt: Code(s): T14.91XA - Suicide attempt, initial encounter Status: Acute (3) Tobacco dependence: Code(s): F17.200 - Nicotine dependence, unspecified, uncomplicated Status: Acute (4) Schizophrenia: Code(s): F20.9 - Schizophrenia, unspecified Status: Acute (5) Bipolar mood disorder: Code(s): F31.9 - Bipolar disorder, unspecified Status: Acute (6) Urinary tract infection, site not specified: Code(s): N39.0 - Urinary tract infection, site not specified Status: Acute DS: Summary Hospital Course Hospital Course: This patient is a 58-year-old female who presents emergency department with possible overdose. Family noticed that the patient was acting as though she was highly intoxicated. the patient was denying suicidal or homicidal ideation but does have prior history of overdoses. The patient was found with a bottle of Fioricet laying next to her that have been filled on the and had initially 60 pills in it and was empty the patient denies being suicidal. She was confused and agitated on arrival to the ED. Her Urine drug screen positive for barbiturates. Tylenol level 16. Poison Control contacted. Recommended N vida tyl-cystine. and was started on N-acetylcysteine. Treated in the ICU. she was placed on Precedex drip. This has been off since this a.m. she is Back to her baseline mental status now. Suicide attempt suspected on suicide precautions . medically stable and at crisis team evaluate. Undergoing safety contract and will be discharged home. History of schizophrenia resume home medications History of bipolar disorder UTI on ceftriaxone urine culture pending had DVT prophylaxis Lovenox Code status full code Time Spent with Patient Time attestation: Total time spent providing and/or coordinating discharge services: 35 minutes Exam Narrative: General: Patient is more awake, alert, cooperative, Not in acute distress HEENT:? Pupils are equal and reactive, sclera is clear, moist oral mucosa, no dentition Neck:? Supple Respiratory:? Clear to auscultation bilaterally, no wheezing Cardiac:? S1-S2 is normal, regular rate, rhythm Abdomen:? Soft, nontender, nondistended, normoactive bowel sounds Extremities:? No edema, palpable pedal pulses Neuro:? Patient is more awake, alert, able to answer questions and follows simple commands. Skin:? Warm and dry with tattoos noted Psych:? Normal mentation DS: Data Data Completed and Pending Labs on day of discharge: Labs from last 24 hours 07/26/24 07/25/24 04:12 19:08 WBC 6.3 RBC 3.64 L Hgb 13.4 Hct 39.2 MCV 107.7 H MCH 36.8 H MCHC 34.2 RDW 13.2 Plt Count 250 MPV 9.5 Immature Gran % (Auto) 0.2 Neut % (Auto) 59.2 Lymph % (Auto) 27.4 [place] % (Auto) 11.1 H Eos % (Auto) 1.6 Baso % (Auto) 0.5 Lymph # (Auto) 1.73 [place] # (Auto) 0.7 H Eos # (Auto) 0.1 Baso # (Auto) 0.0 Abs Immat Gran (auto) 0.01 Absolute Neuts (auto) 3.8 Absolute Nucleated RBC 0.000 Nucleated RBC % 0.0 Platelet Estimate Adequate Anisocytosis 1+ Schistocytes None seen PT 13.2 INR 1.0 Sodium 138 Potassium 3.1 L Chloride 105 Carbon Dioxide 27 Anion Gap 6 BUN 7 Creatinine 0.40 L Estim Creat Clear Calc 109 Estimated GFR > 60 Glucose 116 H Lactic Acid 1.3 Calcium 9.4 Phosphorus 3.2 Magnesium 2.0 Total Bilirubin 0.5 AST 34 ALT 23 Alkaline Phosphatase 57 Ammonia 50 H Total Creatine Kinase 259 H Total Protein 7.0 Albumin 3.9 TSH 1.520 Hep Bs Antigen Negative Hepatitis C Ab Screen Reactive HCV RNA (PCR) IUs/ml Pending HCV RNA PCR log IUs/ml Pending HIV 1&2 Ab/P24 Ag 4thGn Negative Discharge Plan Discharge Attending physician on discharge: Brett Hillman Consulting providers: Karmally,Zohair H. Discharging Clinician: Brett Hillman Anticipated Discharge Date/Time: 07/26/24 17:06 Patient Disposition: Home, Self-Care Activity: as tolerated Diet: regular Discharge Instructions: Follow-up with PCP in 1 week. Follow up on urine culture Safety contract with crisis team. Patient Instructions: Antibiotic Form, How to Stop Smoking (GEN) Stand Alone Forms: General Discharge Information Follow-up/Referrals: Sera,Neil Fang MD [Primary Care Provider] - 1 Week Discharge Medications: New sulfamethoxazole-trimethoprim [Bactrim DS] 800-160 mg tablet 1 tablet PO Q12H Qty: 10 0RF Continued ondansetron HCl 4 mg tablet 4 mg PO TID PRN (Reason: Nausea And Vomiting) sertraline [Zoloft] 50 mg tablet 100 mg PO DAILY chlorpromazine 100 mg tablet 100 mg PO HS buspirone 15 mg tablet 15 mg PO TID cyclobenzaprine 10 mg tablet 10 mg PO HS axtkvpuojh-uhawkldeeckil-ncpf [Fioricet] 50-325-40 mg Tablet 1 tablet PO Q8H PRN (Reason: Headache) prazosin 5 mg capsule 10 mg PO HS benztropine 2 mg tablet 2 mg PO BID PRN (Reason: involuntary movement) gabapentin 300 mg capsule 300 mg PO TID Date of admission: 07/25/24 12:10 Primary Care Provider: KmNeil Admitting Provider: Brett Hillman Attending physician on admission: Brett Hillman Condition: Stable
[2024-07-29 12:24] LABS: Hepatitis C RNA, Quant PCR 1470000 IU/mL (NOT DETECTED)
== END 2024-07-26 17:49 | disposition home or self-care (01) | DRG 918 ==
LOC: ANHED 06:55 → ANHICU 08:27
PROVIDERS: Internal Medicine; Admitting Provider Internal Medicine; Emergency Provider Emergency Medicine; PCP Internal Medicine Gastroenterology; Visit Provider Internal Medicine
DX: T50.902A Poisoning by unspecified drugs, medicaments and biological substances, intentional self-harm, initial encounter (principal); N39.0 Urinary tract infection, site not specified; T50.994A Poisoning by other drugs, medicaments and biological substances, undetermined, initial encounter; J44.9 Chronic obstructive pulmonary disease, unspecified; F41.9 Anxiety disorder, unspecified; F31.9 Bipolar disorder, unspecified; F20.9 Schizophrenia, unspecified; F17.210 Nicotine dependence, cigarettes, uncomplicated; Z20.822 Contact with and (suspected) exposure to COVID-19; Z85.54 Personal history of malignant neoplasm of ureter
CPT/HCPCS: 36415; 80053; 80143; 80179; 80307; 81001; 82077; 82140; 82550; 83605; 83735; 84100; 84443; 85025; 85610; 86703; 86803; 87086; 87340; 87522; 87635; 87641; 96361; 96365; 96375; 99285; A9270; G0378; G0432; J0132; J0696; J1650; J7030; J7060; J7070; J7120

== ENCOUNTER 2024-09-16 11:09 | Outpatient (CLI) | payer MEDICARE, MEDICAID, SELFPAY ==
--- NOTE | ~2024-09-16 | CT_ITS ---
EXAMINATION: CT IAC/mastoids BI wo con DATE: 09/16/2024 12:09 INDICATION: Tinnitus, unspecified ear. TECHNIQUE: Computed tomography (CT) of the temporal bones was performed without intravenous contrast. Automated exposure control and iterative reconstruction technique were employed. The dose-length pro duct was 296.22 mGy-cm. COMPARISON: Head CT 05/24/2023 FINDINGS: RIGHT TEMPORAL BONE: The internal auditory canal, cochlea, vestibule, semicircular canals, vestibular aqueduct, carotid ca nal, jugular bulb, facial nerve course, ossicles, tympanic membrane, Prussak space, scutum, mastoid a ir cells, external auditory canal are normal. LEFT TEMPORAL BONE: The internal auditory canal, cochlea, vestibule, semicircular canals, vestibular aqueduct, carotid ca nal, jugular bulb, facial nerve course, ossicles, tympanic membrane, scutum, Prussak space, and exter nal auditory canal are normal. There is a small left mastoid effusion. IMPRESSION: 1. Small left mastoid effusion. Reviewed, dictated and finalized at location A. TRIC POWER LINE EXAMINER
--- NOTE | ~2024-09-16 | XR_ITS ---
3 VIEWS LUMBAR SPINE Ordering provider: Callie Wakefield, ELECTRICIAN RESEARCH History: . CHRONIC LBP . Comparison: None. FINDINGS: VERTEBRAL BODIES:Anterolisthesis at the level of L4-L5. No visible fracture or subluxation. DISK SPACES: Degenerative disc disease at the level of L4-L5 and L5-S1. Multilevel facet joint diseas e. SOFT TISSUES: Atherosclerotic changes of the aorta. IMPRESSION: No acute osseous abnormality lumbar spine. Multilevel degenerative disc disease. 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
== END 2024-09-16 11:10 | disposition home or self-care (01) ==
PROVIDERS: PCP Internal Medicine Gastroenterology; Visit Provider Nurse Practitioner Family
DX: H93.19 Tinnitus, unspecified ear (principal); M54.50 Low back pain, unspecified; H74.8X2 Other specified disorders of left middle ear and mastoid
CPT/HCPCS: 70480; 72100

== ENCOUNTER 2024-11-15 13:22 | Emergency (ER) | payer MEDICARE, MEDICAID, SELFPAY ==
[2024-11-15 13:25] VITALS: BP 124/98; PULSE 90; RESP 18; TEMP 36.6; O2SAT 99
--- OUTSIDE RECORDS SUMMARY | 2024-11-15 13:29 | XMS_ITS | Clinical Summary ---
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 DEVELOPER Gender Identity Not on file Sexual Orientation Not on file Plan of Treatment Health Maintenance Due Date Last Done Comments Cervical Cancer Screening Pap Smear (Age 30 to 64) Every 3 Years 1966 Colorectal Cancer Screening Colonoscopy (10 Years) 1966 Annual Physical 1969 Hepatitis C 1984 Hepatitis B Vaccines (1 of 3 - 19+ 3-dose series) 1985 Cervical Cancer Screening Pap with HPV Testing (Age 30 to 64) Every 5 Years 1996 Cervical Cancer Screening with HPV 1996 Mammogram Screening 2006 DTaP, Tdap and Td Vaccines (1 - Tdap) 10/06/2012 10/05/2012 Zoster Vaccines (1 of 2) 2016 COVID-19 Vaccine (1 - season) 2024 Influenza Adult (#1) 2024 07/16/2023, 07/04/2021, 05/18/2020, Additional history exists Meningococcal B Vaccine Aged Out No l onger eligible based on patient's age to complete this topic Meningococcal Vaccine Aged Out No sondra sydnee eligible based on patient's age to complete this topic Pneumococcal Vaccine: Pediatrics (0 to 5 Years) and At-Risk Patients (6 to 64 Years) Aged Out No longer eligible based on patient's age to complete this topic RSV Immunizations Under 20 Months Aged Out No longer eligible based on patient's age to complete this topic Insurance MEDICAID MEDICARE * Guarantor: Mahnaz Oseguera Account Type Relation to Patient Date of Phone Billing Address Personal/Family Self 1965 [id number] [facility] [place] [address] Care Teams Bricklayer Supervisor Relationship Specialty Start Date End Date Neil Barbour MD [address] [place] [address] PCP - General INTERNAL MEDICINE 12/18/23
--- OUTSIDE RECORDS SUMMARY | 2024-11-15 13:29 | XMS_ITS | Patient Health Summary ---
Author Organization [facility] Address [address] [place] [address] Care Team Providers Care Towel Weaver Name Role Phone Unavailable Primary Care Provider Unavailabl e Note from [facility],non-owned Affiliates and Associated Physician Practices is amultiple site organization consisting of ambulatory clinics and hospital sitesin [place], [place], [place] and [place]. This disclosure is being madepursuant to the Care Everywhere program and may not contain all information available regarding this patient. Last updated 18.[facility] Social History Tobacco Use Types Packs/Day Years Used Date Smoking Tobacco: Never Assessed Sex and Gender Information Value Date Recorded Sex Assigned at Not on file Gender Identity Not on file Sexual Orientation Not on file
--- OUTSIDE RECORDS SUMMARY | 2024-11-15 13:29 | XMS_ITS ---
Author Organization [facility] Address [address] [place] [address] Care Team Providers Care Spindle Setter Name Role Phone Juanis Watson Primary Care Provider REASON FOR VISIT refills Encounters Encounter Location Date Provider Diagnosis [facility] [address] [place] [address] 11/11/2024 Juanis Watson Plan Of Treatment No Information Progress Notes * Rhona OSEGUERAB: 6 (59 yo F)Acc No.[id number]:11/11/2024 Patient: Mahnaz OWENS :1965 A ge:59 Y S ex:Female Address:[address] [place] [id number] * true * Date: Generated for Arii aashish/Shazia/eTransmitting on: 0 11/15/2024 01:29 PM CDT
--- OUTSIDE RECORDS SUMMARY | 2024-11-15 13:29 | XMS_ITS | Clinical Summary ---
Author Organization [facility] Address [address] [place] [address] Care Team Providers Care Reimbursement Spec Name Role Phone Unavailable Primary Care Provider Unavailabl e Source Comments [facility] [employer],non-owned Affiliates and Associated Physician Practices is amultiple site organization consisting of ambulatory clinics and hospital sitesin [place], [place], [place] and [place]. This disclosure is being madepursuant to the Care Everywhere program and may not contain all information available regarding this patient. Last updated 18.[facility] [employer] Social History Tobacco Use Types Packs/Day Years Used Date Smoking Tobacco: Never Assessed Sex and Gender Information Value Date Recorded Sex Assigned at Not on file Gender Identity Not on file Sexual Orientation Not on file Plan of Treatment Health Maintenance Due Date Last Done Comments COLOGUARD (AGES 45-75) - COL ON CA SCREENING 1966 COLON MONITORING 1966 COLONOSCOPY - COLON CA SCREENING 1966 CT COLONOGRAPHY - COLON CA SCREENING 1966 Colorectal Cancer Screening 1966 FIT - COLON CA SCREENING 1966 FLEX SIG - COLON CA SCREENING 1966 LIPID TESTING 1966 MAMMOGRAM 1966 MEDICARE AWV 12 MONTHS 1966 PAP SMEAR 1966 HIV SCREENING 1981 HEPATITIS C SCREENING 07/29/1984 DTAP/TDAP/TD VACCINES (1 - Tdap) 1985 HEPATITIS B VACCINE (1 of 3 - 19+ 3-dose series) 1985 PNEUMOCOCCAL VACCINE 50+ (1 of 1 - PCV) 2016 ZOSTER VACCINE (1 of 2) 2016 COVID-19 VACCINE ( - 2023-2 5 season) 2024 INFLUENZA VACCINE (#1) 2024 DEPRESSION SCREENING 09/09/2024 HIB VACCINE Aged Out No longer eligi ble based on patient's age to complete this topic HPV VACCINE Aged Out No longer eligi ble based on patient's age to complete this topic MENINGOCOCCAL (Group B) VACCINE Aged Out No longer eligible based on patient's age to complete this topic MENINGOCOCCAL VACCINE Aged Out No sondra sydnee eligible based on patient's age to complete this topic PNEUMOCOCCAL VACCINE Aged Out No long er eligible based on patient's age to complete this [place] [address] [place] [id number]
--- OUTSIDE RECORDS SUMMARY | 2024-11-15 13:29 | XMS_ITS | Referral Summary ---
Author Organization [facility] Address [address] [place] [address] Care Team Providers Care Dressed Poultry Grader Name Role Phone Unavailable Primary Care Provider Unavailabl e Source Comments [facility],non-owned Affiliates and Associated Physician Practices is amultiple site organization consisting of ambulatory clinics and hospital sitesin [place], [place], [place] and [place]. This disclosure is being madepursuant to the Care Everywhere program and may not contain all information available regarding this patient. Last updated 18.[facility] Social History Tobacco Use Types Packs/Day Years Used Date Smoking Tobacco: Never Assessed Sex and Gender Information Value Date Recorded Sex Assigned at Not on file Gender Identity Not on file Sexual Orientation Not on file Plan of Treatment Not on file
--- OUTSIDE RECORDS SUMMARY | 2024-11-15 13:30 | XMS_ITS | Clinical Summary ---
Author Organization [facility] [place] [address] Address [address] [place] [address] Care Team Providers Care Framing Manager Name Role Phone Neil Barbour MD Primary Care Provider Ismael Vanegas MD Unavailable [phone] Allergies Active Allergy Reactions Criticality Noted Date Comments Aminoglycosides Unknown 10/19/2012 unk Amoxicillin-Pot Clavulanate Hives Medium 07/25/2023 Bacitracin Unknown 10/19/2012 unk Benzalkonium Chloride Rash Medium 10/16/2023 Ciprofloxacin Unknown 10/19/2012 unk Codeine Itching Low 10/19/2012 unk Corticosteroids (Glucocorticoids) Other (See comments) Low 07/25/2023 Patient states she goes into a rage Dexamethasone Unknown 10/19/2012 unk Erythromycin Grass Pollen Haloperidol Unknown,Anaphylaxis High 10/19/2012 unk Ibuprofen Ketorolac Latex Rash Medium 10/19/2012 unk Lidocaine Unknown 10/19/2012 unk Mohfrblt-Gurfmlijjl-Ovfpm yxin Olanzapine Anaphylaxis High 10/19/2012 unk Oxycodone Itching Low 10/19/2012 unk Polymyxin B Hives Medium 10/19/2012 unk Prochlorperazine Hives Medium 10/16/2023 Risperidone Anaphylaxis High 10/19/2012 unk Sulfa (Sulfonamide Antibiotics) Hives Medium 10/19/2012 unk Tramadol Rash,Unknown Medium 10/19/2012 unknown Tuberculin Unknown 10/19/2012 unk Medications cyclobenzaprine (FLEXERIL) 10 mg tablet Take 1 tablet (10 mg total) by mouth nightly 07/11/20 23 Active chlorproMAZINE (THORAZINE) 100 mg tablet Take 1 tablet (100 mg total) by mouth nightly at bedtime 07/11/20 23 Active prazosin (MINIPRESS) 5 mg capsule Take 2 capsules (10 mg total) by mouth nightly 05/05/20 23 Active sertraline (ZOLOFT) 100 mg tablet Take 1 tablet (100 mg total) by mouth every morning 07/13/20 23 Active benztropine (COGENTIN) 1 mg tablet Take 2 tablets (2 mg total) by mouth daily 05/16/20 23 Active busPIRone (BUSPAR) 15 mg tablet Take 1 tablet (15 mg total) by mouth 3 (three) times a day 07/04/20 23 Active gabapentin (NEURONTIN) 300 mg capsule Take 2 capsules (600 mg total) by mouth 3 (three) times a day 07/18/20 23 Active ondansetron ODT (ZOFRAN-ODT) 4 mg disintegrating tablet Take 1 tablet (4 mg total) by mouth every 8 (eight) hours as needed for nausea or vomiting Active docusate sodium (COLACE) 100 mg capsuleIndications :constipation Take 1 capsule (100 mg total) by mouth 2 (two) times a day as needed for constipation 60 capsule 08/07/20 23 Active oxyBUTYnin (DITROPAN) 5 mg tabletIndications: Bladder Hyperactivity Take 1 tablet (5 mg total) by mouth every 6 (six) hours as needed (bladder spasms) 30 tablet 08/07/20 23 Active Additional Information Patient not taking.Reported on 10/16/2023 potassium chloride ER 20 mEq CR tablet Take 1 tablet (20 mEq total) by mouth daily 10/14/19 24 Active tamsulosin (FLOMAX) 0.4 mg extended release capsule Take 1 capsule (0.4 mg total) by mouth nightly 10/11/19 24 Active Active Problems Problem Noted Date Diagnosed Date Ureter cancer, right 08/05/2023 Ureteral cancer, right 07/17/2023 Surgical History Surgery Date Site/Laterality Comments BACK SURGERY Back Surgery - (Added by TW Conv) [place] TOTAL ABDOMINAL HYSTERECT W/WO RMVL TUBE OVARY Hysterectomy - (Added by TW Conv) [place] TONSILLECTOMY PRIMARY/SEC ONDARY <AGE 12 Tonsillectomy - (Added by TW Conv) Medical History Medical History Date Comments Bipolar II disorder (HCC) Bipola r II disorder - (Added by TW Conv) Personal history of other in fectious and parasitic diseases History of hepatitis - (Adde d by TW Conv) Ureteral cancer, right (HCC) Anxiety Kidney stone Family History Medical History Relation Name Comments Cancer Other Cancer - (Added by TW Conv) Diabetes Other Diabetes Mellit us - (Added by TW Conv) Heart disease Other Heart Disease - (Added by TW Conv) Hypertension Other Hypertension - (Added by TW Conv) Thyroid disease Other Thyroid Diso rder - (Added by TW Conv) Relation Name Status Comments Other Social History Tobacco Use Types Packs/Day Years Used Date Smoking Tobacco: Every Day Cigarettes 1 48 Smokeless Tobacco: Never [facility] Utilities Answer Date Recorded In the past 12 months has e electric, gas, oil, or water company threatened to shut off services in your home? No 08/07/2023 Social Connection and Isolat ion Panel [NHANES] Answer Date Recorded In a typical week, how many times do you talk on the phone with family, friends, or neighbors? More than three times a week 08/07/2023 How often do you get togethe r with friends or relatives? More than three times a week 08/07/2023 How often do you attend chur ch or amish services? Never 08/07/2023 Do you belong to any clubs o r organizations such as orthodoxy groups, unions, fraternal or athletic groups, or school groups? No 08/07/2023 How often do you attend meet ings of the clubs or organizations you belong to? Never 08/07/2023 Are you , , di vorced, , never , or living with a partner? Never 08/07/2023 AUDIT-C Answer Date Recorded Q1: How often do you have a drink containing alc ohol? Never 10/16/2023 Average Number of Drinks Not on file 024 Frequency of Binge Drinking Not on file 03/2024 Overall Financial Resource Strain (CARDIA) Answe r Date Recorded How hard is it for you to pa y for the very basics like food, housing, medical care, and heating? Not very hard 08/07/2023 Hunger Vital Sign Answer Date Recorded Within the past 12 months, y ou worried that your food would run out before you got the money to buy more. Never true 08/07/20 23 Within the past 12 months, t he food you bought just didn't last and you didn't have money to get more. Never true 08/07/2023 PRAPARE - Transportation Answer Date Re corded In the past 12 months, has l ack of transportation kept you from medical appointments or from getting medications? No 07/11 In the past 12 months, has l ack of transportation kept you from meetings, work, or from getting things needed for daily living? No 08/07/2023 Housing Stability Vital Sign Answer Marco Antonio e Recorded In the last 12 months, was t here a time when you were not able to pay the mortgage or rent on time? No 08/07/2023 In the last 12 months, how many places have you lived? 1 08/07/2023 In the last 12 months, was t here a time when you did not have a steady place to sleep or slept in a longterm (including now)? No 08/07/2023 Personal Safety Answer Date Recorded Have you ever been in or are you currently in a harmful physical or emotional relationship or is someone making you feel afraid or unsafe? Denies 08/05/2023 Comments No Sex and Gender Information Value Date Recorded Sex Assigned at Not on file Legal Sex Female 4:20 PM ENDODONTIC ASSISTANT Gender Identity Not on file Sexual Orientation Not on file Obstetrics History Last Filed Vital Signs Vital Sign Reading Time Taken Comments Blood Pressure 109/63 08/07/2023 3:31 PM ENDODONTIC ASSISTANT Pulse 101 08/07/2023 3:31 PM ENDODONTIC ASSISTANT Temperature 36.9 C (98.5 F) 08/07/2023 3:31 PM ENDODONTIC ASSISTANT Respiratory Rate 18 08/07/2023 3:31 PM ENDODONTIC ASSISTANT Oxygen Saturation 98% 08/07/2023 3:31 PM ENDODONTIC ASSISTANT Inhaled Oxygen Concentration - - Weight 71.7 kg (158 lb 1.1 oz) 08/05/2023 12:15 PM ENDODONTIC ASSISTANT Height 157.5 cm (5' 2 ) 08/05/2023 12:15 PM ENDODONTIC ASSISTANT Body Mass Index 28.91 08/05/2023 12:15 PM ENDODONTIC ASSISTANT Plan of Treatment Health Maintenance Due Date Last Done Comments Breast Cancer Screening-Mammogram 1966 Colon Cancer Screening-Colonoscopy 1966 Depression Screening 1966 Hepatitis B Screening 1984 Regular Well Visit/Exam 18-64 1984 Pneumococcal vaccine <65 (1 of 2 - PCV) 1985 DTaP/Tdap/Td Vaccine (1 - Tdap) 10/06/2012 3 Zoster Vaccine (1 of 2) 2016 Influenza Vaccine (#1) 2024 3, 07/04/2021, 05/18/2020, Additional history exists Hepatitis C Screening Completed 06/22/2010 Medical Devices Implanted Type Area Retort Engineer Device Identifier Shelf Expiration Date Model / Serial / Lot [employer] Contour 6fr 26cm Large Inner Lumen Low Profile Bladder Shane Taper Latex Free 180-223 - [id number] Implanted:Qty: 1 on 08/05/2023 by Ismael Vanegas MD at [facility] Stent Right: Ureter [employer]ood 04/01/2026 [id number] / / [id number] Insurance MEDICARE IDOR MEDICARE IDPA MEDICARE IDPA Advance Directives For more information, please contact: [phone] * Full Code (Latest Code Status on File) Date Activated Date Inactivated Comments 08/05/2023 8:31 PM 08/07/2023 7:47 PM Care Teams Framing Manager Relationship Specialty Start Date End Date Neil Barbour MD [address] [id number] PCP - General Gastroenterology 03/27/23 [place] [address] [place] [id number] Consulting Physician Urology 08/07/23
--- OUTSIDE RECORDS SUMMARY | 2024-11-15 13:30 | XMS_ITS | Data Portability ---
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 Plan of Treatment Reminders Order Date Submit Date Provider Last Modified By Organization Details Last Modified Time Details Appointments None record ed. Lab None record ed. Referral None record ed. Procedures None record ed. Surgeries None record ed. Imaging None record ed. Medication Orders None record ed. Patient TargetsNo targets recorded. Patient Instructions Encounter Date Encounter Id Patient Instructions Last Modified By Organization Details Last Modified Time 09/10/2024 [id number] reviewed her medications at length as possible causative factors for her tinnitus. Her medications that she is currently taking are not currently the causative agent for her tinnitus. She will have an audiogram and tympanogram completed. She will have a CT of her temporal bones. We will follow-up on results become available. Did advise the patient that tinnitus is a lifelong ailment with limited to no treatment. [email or web address] Not available 09/10/2024 12:09:09 Reason for Referral None Reported. Results Created Date Observation Date Name Description Value Unit Range Abnormal Flag Note LastModifiedBy Organization Detail LastModifiedTime 03/05/20 22 03/05/2022 COVID -19 (SARS COV-2 ) RNA, HOLLY covid-19 RNA negati ve This test has been autho rized by the FDA under an Emerg ency Use Autho rizat ion (EUA) for use by autho rized labor atori es. Negat charlette resul ts shoul d be treat ed as presu mptiv e and, if incon siste nt with clini terrie signs and sympt oms thierry purcell for patie nt manag ement , shoul d be teste d with diffe rent autho rized or clear ed molec ular tests . Negat charlette resul ts do not precl ude SARS- Co-V- 2 infec tion and shoul d not be used as the sole basis for patie nt manag ement decis ions. Negat charlette resul ts shoul d be consi dered in the lester xt of a patie nt's recen t expos ures, histo ry, and the prese nce of clini terrie signs and sympt oms consi stent with COVID -19. Maty mejia w the Fact Sheet s for healt h care provi ders and patie nts at the [facility]: https ://kevin santillan.mariano [facility]. abbot tam/en/ produ ct-de tails /id-n ow-co vid-1 9.htm l Metho dolog y: Isoth ermal Nucle ic Acid Ampli ficat ion Not Available [facility] (Lab) [address] [place], [address], 03/05/2022 14:48:59 03/22/20 22 03/22/2022 XR, foot No observ ation record ed. [id number] [facility] [place] [address], [place], [address], 11/07/2022 05:56:49 04/03/20 22 04/05/2022 XR, foot No observ ation record ed. [id number] [facility] [place] [address], [place], [address], 11/07/2022 05:56:49 08/29/20 XR, lumba r spine No observ ation record ed. [id number] [facility] [place] [address], [place], [address], 11/07/2022 05:56:49 08/29/20 22 XR, hip + pelvi s, unila teral No observ ation record ed. [id number] [facility] [place] [address], [place], [address], 11/07/2022 05:56:49 09/06/20 22 MRI, lumba r spine , w/o contr ast [facility] [address], [place] [address] Patien t Name: MAHNAZ MARTINEZ MS Access ion #: [id number] Sex: F : 1964 1 Locati on: RA2 Attend ing Physic ari: CAESAR COUGHLIN Orderi Physic ari: CAESAR COUGHLIN Exam Date: 2021 9:47 AM Exam Name: MRI L SPINE WO Admitt ing Diagno sis(es ): RADIOL OGY REPORT - FINAL EXAM: MRI L SPINE WO HISTOR Y: lt leg numbne ss fell 3 knee a months ago compla ins of lower back pain and bilate ral leg pain left greate r than right COMPAR SANDRA: Radiog raph 2021 TECHNI QUE: Multip lanar multis equenc e noncon trast MR images of the lumbar spine were perfor med. Sagita l: T1, T2, Axial: T1, T2, T2 multia ngle. FINDIN GS: Verteb ral bodies : Mildly inhomo genous marrow signal intens ity correl ate for system ic anemia . 7 mm anteri or offset of L4 relati ve to L5, degene rative etiolo gy. Page 1 of 3 [facility] Matilda t Name: MAHNAZ MARITNEZ MS Access ion #: [id number] Sex: F : 1964 1 Exam Date: 2021 9:47 AM Exam Name: MRI L SPINE WO Admitt ing Diagno sis(es ): Conus medull glory: T12-L1 Disc spaces : All levels demons trate degene rative desicc ation signal intens ity Parave rtebra l soft tissue s: Unrema rkable Vascul ature: No aneury sm T12-L1 : Unrema rkable L1-2: broad- based disc protru jaquelin result ing in modera te centra l spinal stenos is. L2-3: Otherw ise unrema rkable L3-4: Mild bulgin g of the degene rate annulu s and facet hypert rophy result s in mild centra l spinal stenos is. L4-5: Facet hypert rophic change s and degene rative etiolo gy anteri or offset of L4 relati ve L5 result s in modera te to severe centra l spinal stenos is and severe bilate ral prefor aminal stenos is with eviden ce of mild to modera te bilate ral neural forami nal stenos is. L5-S1: Degene rative etiolo gy modera te right and mild-t o-mode rate left neural forami nal stenos is. Miscel kena s: Image [id number] demons trates a simple cyst measur ing 8 mm, left kidney . Page 2 of 3 [facility] Patien t Name: MAHNAZ MARTINEZ MS Access ion #: [id number] Sex: F : 1964 1 Exam Date: 2021 9:47 AM Exam Name: MRI L SPINE WO Admitt ing Diagno sis(es ): IMPRES JAQUELIN: See above. Create d and electr onical ly signed by: Kristopher gomez MD Signed Date: 2021 3:19 PM (CT) Dictat ed by: Kristopher gomez MD DD: 2021 3:19 PM (CT) DT: 2021 3:19 PM (CT) Page 3 of 3 [id number] [facility] (Imaging) [address] [place], [address], 11/07/2022 05:56:49 07/04/20 23 07/04/2023 CT, abdom en + pelvi s, w/o contr ast No observ ation record ed. [email or web address] [address], [place], [address], 12/11/2023 15:29:02 12/13/19 24 09/20/2023 XR, knee, 3 view No observ ation record ed. [email or web address] Not Available 01/2024 15:40:22 09/16/19 25 09/16/2024 XR, lumba r spine No observ ation record ed. [address], [place], [address], 09/23/2024 16:57:07 09/17/19 25 09/16/2024 CT, tempo ral bone, w/o contr ast No observ ation record ed. [address], [place], [address], 09/23/2024 16:49:23 09/17/19 25 09/17/2024 XR, lumba r spine No observ ation record ed. [facility] [address], [place], [address], 09/17/2024 11:33:10 09/17/19 25 09/17/2024 CT, tempo ral bone, w/o contr ast No observ ation record ed. [address], [place], [address], 09/23/2024 16:53:21 09/28/19 25 09/28/2024 audio gram + tympa nogra m No observ ation record ed. [address] Aud[facility] [address] [facility] [address], [place], [address], 10/12/2024 16:23:27 10/26/19 25 10/26/2024 audio gram + tympa nogra m No observ ation record ed. [facility] [address] [facility] [address], [place], [address], 10/26/2024 11:03:19 Result Notes None recorded. Problems Name Problem SNOMED Code Status Onset Date Resolution Date Notes Provider Name and Address Organization Details Recorded Time Metatarsa lgia 70760878 Active 2019 Not Available [facility] 3 05:53:03 Bipolar disorder 09462464 Active Not Available [facility] 3 05:53:03 Postopera tive visit 400534791 Active 2019 Not Available [facility] 3 05:53:03 Menopausa l flushing 839229200 Active Surgical menopause Not Available [facility] 3 05:53:03 Postopera tive pain 433683999 Active 2019 Not Available [facility] 3 05:53:03 Vaginal discharge 922641873 Active Not Available [facility] 3 05:53:04 Pain of left hip joint 96228762363 9100 Active 2021 Not Available [facility] 3 05:53:04 Closed fracture of lateral malleolus 50764548 Active Not Available [facility] 3 05:53:04 Ingrowing toenail 423043061 Active 2020 Not Available [facility] 3 05:53:04 Mixed urinary incontine nce 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 Active Not Available [facility] 3 05:53:04 Fracture of lower leg 398279218 Active Not Available [facility] 3 05:53:04 Acquired right hallux rigidus 62377516554 4100 Active 2019 Not Available [facility] 3 05:53:04 Foot pain 03793361 Active 2021 Not Available [facility] 3 05:53:04 Foot pain 26938036 Active 2021 Not Available [facility] 3 05:53:04 Urinary tract infectiou s disease 97087077 Active Not Available [facility] 3 05:53:04 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 Please review this document and add these problems to the patient's chart manually as needed. Problem Notes None recorded. Procedures Surgical History Date Name Laterality Status Provider Name and Address Organization Details Recorded Time 1 hysterectomy completed Callie Corcoran RN [facility] [employer] [facility] 09/11/2024 08:33:11 tonsillectomy completed Callie Corcoran RN [facility] [employer] [facility] 09/10/2024 11:42:48 Foot Surgery completed Callie Corcoran RN [facility] [employer] [facility] 09/11/2024 08:33:49 Imaging Results Imaging Date Name Status LastModified by [facility] Details LastModified Time 09/06/2022 MRI, lumbar spine, w/o contrast completed [id number] [facility] (Imaging) [address] [place], [address], 11/07/2022 05:56:49 08/29/2022 XR, lumbar spine completed [id number] [facility] [place] [address], [place], [address], 11/07/2022 05:56:49 08/29/2022 XR, hip + pelvis, unilateral completed [id number] [facility] [place] [address], [place], [address], 11/07/2022 05:56:49 04/05/2022 XR, foot completed [id number] [facility] [place] [address] [facility] [place] [address], [place], [address], 11/07/2022 05:56:49 03/22/2022 XR, foot completed [id number] [facility] [place] [address] [facility] [place] [address], [place], [address], 11/07/2022 05:56:49 07/04/2023 CT, abdomen + pelvis, w/o contrast [place] [address], [place], [address], 12/11/2023 15:29:02 09/20/2023 XR, knee, 3 view completed [email or web address] Information not available 12/13/2023 15:40:22 09/16/2024 XR, lumbar spine completed [address], [address], 09/23/2024 16:57:07 09/16/2024 CT, temporal bone, w/o contrast completed [address], [address], 09/23/2024 16:49:23 09/17/2024 XR, lumbar spine completed [facility] [address], [place], [address], 09/17/2024 11:33:10 09/17/2024 CT, temporal bone, w/o contrast completed [address], [place], [address], 09/23/2024 16:53:21 09/28/2024 audiogram + tympanogram completed [address] Audiology [address] [facility] [address], [place], [address], 10/12/2024 16:23:27 10/26/2024 audiogram + tympanogram completed [facility] Aud[facility] [address] [facility], [place], [address], 10/26/2024 11:03:19 Procedure Notes None recorded. Medical Equipment None Reported. Allergies Allergen ID Allergen Name Allergen Category Reaction Reaction Severity Criticality Documentation Date Start Date Code Code System Note Provider Name and Address Organization Details Recorded Time 9875 Zyprexa medicatio n Not available Not available Not available 11/07/2022 48668 3 RxNorm Not Available [facility] 3 05:56:45 9876 Ultram medicatio n rash Not available Not available 11/07/2022 33181 6 RxNorm Not Available [facility] 3 05:56:45 9877 Saphris medicatio n hives Not available Not available 11/07/2022 24973 6 RxNorm Not Available [facility] 3 05:56:45 9878 Risperdal medicatio n hives Not available Not available 11/07/2022 10716 8 RxNorm Not Available [facility] 3 05:56:45 9879 bacitraci n / neomycin / polymyxin B medicatio n rash Not available Not available 11/07/2022 25101 9 RxNorm Not Available [facility] 3 05:56:45 9880 Motrin medicatio n Not available Not available Not available 11/07/2022 19065 8 RxNorm Not Available [facility] 3 05:56:45 9881 latex environme nt,medica tion rash Not available Not available 11/07/2022 13869 91 RxNorm Not Available [facility] 3 05:56:45 9882 ibuprofen medicatio n vomiting Not available Not available 11/07/2022 5640 RxNorm Not Available [facility] 3 05:56:45 9883 Haldol medicatio n Not available Not available Not available 11/07/2022 46820 9 RxNorm GUNNER Corcoran RN null, [facility] 5 08:19:50 9884 grass pollen environme nt,medica tion rash Not available Not available 11/07/2022 47431 UNK Not Available [facility] 3 05:56:45 9885 erythromy kya medicatio n hives Not available Not available 11/07/2022 4053 RxNorm Not Available [facility] 3 05:56:45 9886 Product containin g glucocort icoid (product) medicatio n Not available Not available Not available 11/07/2022 02169 6006 SNOMED Not Available [facility] 3 05:56:45 9887 Cipro medicatio n vomiting Not available Not available 11/07/202242548 3 RxNorm Not Available [facility] 3 05:56:45 9888 amoxicill in medicatio n hives Not available Not available 11/07/2022 723 RxNorm Not Available [facility] 3 05:56:46 Medications Name Sig Start Date Stop Date Status Note LastModified by Organization Details LastModified Time tetracyclin e 500 mg capsule TK 1 C PO BID FOR 10 DAYS 08/19 completed Not Available Not Available Not Available carisoprodo l 350 mg tablet TK 1 T PO QD PRF 30 DAYS 08/19 completed Not Available Not Available Not Available cyclobenzap rine 10 mg tablet TAKE 1 TABLET BY MOUTH AT BEDTIME NEEDED active Not Available Not Available No t Available nitrofurant oin macrocrysta l 50 mg capsule TAKE 1 CAPSULE BY MOUTH AT BEDTIME 09/11 completed Not Available Not Available Not Available gabapentin 600 mg tablet TK 1 T PO TID 08/19 completed Not Available Not Available Not Available doxycycline hyclate 100 mg capsule 09/10 completed Not Available Not Available Not Available cefuroxime axetil 250 mg tablet TK 1 T PO Q 12 H FOR 7 DAYS 08/19 completed Not Available Not Available Not Available benztropine 0.5 mg tablet TAKE 1 TABLET BY MOUTH TWICE DAILY DIRECTED 09/11 completed Not Available Not Available Not Available clindamycin HCl 300 mg capsule TAKE 1 CAPSULE BY MOUTH EVERY 6 HOURS UNTIL ALL TAKEN 09/10 completed Not Available Not Available Not Available trazodone 50 mg tablet TK 1 T PO QD HS 08/19 completed Not Available Not Available Not Available ibuprofen 800 mg tablet TAKE 1 TABLET BY MOUTH THREE TIMES DAILY NEEDED FOR PAIN 09/11 completed Not Available Not Available Not Available fluconazole 150 mg tablet TK 1 T PO 3 TIMES A WK FOR 7 DAYS 09/10 completed Not Available Not Available Not Available chlorpromaz ine 100 mg tablet TAKE 1 TABLET BY MOUTH EVERY DAY AT BEDTIME active Not Available Not Available No t Available methylpheni date 20 mg tablet TK 1 T PO QAM AND 1 T AT NOON QD 08/19 completed Not Available Not Available Not Available phenazopyri dine 200 mg tablet TK 1 T PO TID FOR 2 DAYS 09/11 completed Not Available Not Available Not Available famotidine 40 mg tablet TK 1 T PO QD 08/19 completed Not Available Not Available Not Available sertraline 100 mg tablet Take 1 tablet every day by oral route. active Not Available Not Available No t Available terconazole 0.8 % vaginal cream I 1 APL VAGINALLY QD FOR 3 DAYS 08/19 completed Not Available Not Available Not Available clonazepam 1 mg tablet TK 1 T PO BID PRN 08/19 completed Not Available Not Available Not Available phenytoin sodium extended 100 mg capsule TK 2 CS PO QAM AND 3 CS HS 09/11 completed Not Available Not Available Not Available acetaminoph en 300 mg-codeine 30 mg tablet TAKE 1 TABLET BY MOUTH EVERY 6 HOURS NEEDED FOR PAIN. 09/11 completed Not Available Not Available Not Available sulfamethox azole 800 mg-trimetho prim 160 mg tablet TAKE 1 TABLET BY MOUTH TWICE DAILY 09/11 completed Not Available Not Available Not Available hydrocodone 10 mg-acetamin ophen 325 mg tablet TAKE 1 TABLET BY MOUTH TWICE DAILY NEEDED 09/10 completed Not Available Not Available Not Available peg-electro lyte solution 420 gram oral solution 09/11 completed Not Available Not Available Not Available omeprazole 40 mg capsule,del ayed release TAKE 1 CAPSULE BY MOUTH EVERY DAY DIRECTED 09/11 completed Not Available Not Available Not Available butalbital- acetaminoph en-caffeine 50 mg-325 mg-40 mg tablet TAKE 1 TABLET BY MOUTH EVERY 8 HOURS NEEDED 09/11 completed Not Available Not Available Not Available lamotrigine 25 mg tablet TK 2 TS PO BID UTD 08/19 completed Not Available Not Available Not Available norethin-et h estrad biphasic 0.5 mg-35 mcg(10)/1 mg-35 mcg(11) tablet Take 1 tablet every day by oral route. 02/23 completed Not Available Not Available Not Available prazosin 5 mg capsule TAKE 2 CAPSULES BY MOUTH EVERY DAY AT BEDTIME active Not Available Not Available No t Available oxycodone-a cetaminophe n 5 mg-325 mg tablet TAKE ONE TABLET BY MOUTH EVERY 6 HOURS NEEDED FOR PAIN 09/10 completed Not Available Not Available Not Available famotidine 20 mg tablet TAKE 1 TABLET BY MOUTH DAILY 09/11 completed Not Available Not Available Not Available estradiol 1 mg tablet Take 1 tablet every day by oral route. 08/19 completed Not Available Not Available Not Available trazodone 100 mg tablet TK 2 TS PO QD HS 08/19 completed Not Available Not Available Not Available temazepam 30 mg capsule TK 1 C PO QHS 08/19 completed Not Available Not Available Not Available lorazepam 2 mg tablet TK 1 T PO QID PRN 08/19 completed Not Available Not Available Not Available baclofen 10 mg tablet TK 1 T PO TID PRN 08/19 completed Not Available Not Available Not Available hydrocodone 7.5 mg-acetamin ophen 325 mg tablet TAKE 1 TABLET BY MOUTH EVERY 6 HOURS NEEDED FOR PAIN 09/10 completed Not Available Not Available Not Available cephalexin 500 mg capsule 09/10 completed Not Available Not Available Not Available chlorpromaz ine 25 mg tablet TAKE 4 TABLETS BY MOUTH EVERY DAY AT BEDTIME 09/11 completed Not Available Not Available Not Available ranitidine 150 mg tablet TK 1 T PO BID 30 MINUTES B MEALS FOR 30 DAYS 09/11 completed Not Available Not Available Not Available buspirone 10 mg tablet 09/11 completed Not Available Not Available Not Available promethazin e 25 mg tablet 09/11 completed Not Available Not Available Not Available Advair Diskus 250 mcg-50 mcg/dose powder for inhalation USE 1 INHALATIO N BY MOUTH TWICE DAILY 09/11 completed Not Available Not Available Not Available benztropine 1 mg tablet TAKE 1 TABLET BY MOUTH TWICE DAILY AROUND THE CLOCK 09/11 completed Not Available Not Available Not Available benztropine 2 mg tablet TAKE 1 TABLET BY MOUTH IN THE MORNING AND IN THE EVENING active Not Available Not Available No t Available gabapentin 300 mg capsule TAKE 2 CAPSULES BY MOUTH THREE TIMES DAILY active Not Available Not Available No t Available omeprazole 20 mg capsule,del ayed release TK 1 C PO BID B MEALS 09/11 completed Not Available Not Available Not Available ranitidine 150 mg capsule Take 1 capsule twice a day by oral route. 2014 active Not Available Not Available Not Avai lable norethindro ne acetate 5 mg tablet TAKE 1/2 TABLET BY MOUTH TWICE DAILY 09/11 completed Not Available Not Available Not Available lorazepam 1 mg tablet Take 1 tablet 3 times a day by oral route. 2014 active Not Available Not Available Not Avai lable cefuroxime axetil 500 mg tablet TAKE 1 TABLET BY MOUTH EVERY 12 HOURS FOR 10 DAYS 09/10 completed Not Available Not Available Not Available chlorpromaz ine 200 mg tablet TAKE 1 TABLET BY MOUTH EVERY DAY AT BEDTIME 09/11 completed Not Available Not Available Not Available estradiol 0.01% (0.1 mg/gram) vaginal cream Insert by vaginal route. 2014 active Not Available Not Available Not Avai lable albuterol sulfate HFA 90 mcg/actuati on aerosol inhaler INHALE 2 PUFFS BY MOUTH THREE TIMES DAILY NEEDED 09/11 completed Not Available Not Available Not Available oxybutynin chloride 5 mg tablet Take 1 tablet twice a day by oral route. 08/19 completed Not Available Not Available Not Available Tilton 5 mg-325 mg tablet Take 1 tablet twice a day by oral route as needed for 7 days. 09/10 completed Not Available Not Available Not Available ondansetron 4 mg disintegrat ing tablet DISSOLVE 1 TABLET ON THE TONGUE THREE TIMES DAILY NEEDED active Not Available Not Available No t Available sertraline 50 mg tablet TAKE 1/2 TABLET BY MOUTH EVERY MORNING 09/11 completed Not Available Not Available Not Available prazosin 2 mg capsule TK 5 CS PO QD HS 09/11 completed Not Available Not Available Not Available chlorpromaz ine 50 mg tablet TK 1 T PO D IN THE MONRING 08/19 completed Not Available Not Available Not Available amoxicillin 875 mg-potassiu m clavulanate 125 mg tablet TK 1 T PO Q 12 H TAT. active Not Available Not Available No t Available desipramine 150 mg tablet TAKE 2 TABLETS BY MOUTH EVERY DAY AT BEDTIME 09/11 completed Not Available Not Available Not Available buspirone 15 mg tablet TAKE 1 TABLET BY MOUTH THREE TIMES DAILY AROUND THE CLOCK active Not Available Not Available No t Available escitalopra m 10 mg tablet TK 1 T PO D IN THE EVENING 08/19 completed Not Available Not Available Not Available ezetimibe 10 mg tablet TAKE 1 TABLET BY MOUTH EVERY DAY 09/11 completed Not Available Not Available Not Available nitrofurant oin monohydrate /macrocryst als 100 mg capsule TK 1 C PO BID 09/11 completed Not Available Not Available Not Available omega-3 acid ethyl esters 1 gram capsule 09/11 completed Not Available Not Available Not Available Rozerem 8 mg tablet TK 1 T PO QHS 08/19 completed Not Available Not Available Not Available chlorhexidi ne gluconate 0.12 % mouthwash SWISH AND SPIT 1 CAPFUL NIGHTLY FOR 7-10 DAYS 09/10 completed Not Available Not Available Not Available cholecalcif kelli (vitamin D3) 1,250 mcg (50,000 unit) capsule TK ONE C PO Q WK WITH A MEAL UTD 09/11 completed Not Available Not Available Not Available diclofenac 1 % topical gel MARSHA 2 GRAMS EXT AA QID 09/11 completed Not Available Not Available Not Available estradiol 10 mcg vaginal tablet INSERT 1 TABLET VAGINALLY 2 TIMES A WEEK DIRECTED 09/11 completed Not Available Not Available Not Available Myrbetriq 25 mg tablet,exte nded release TK 1 T PO QD 08/19 completed Not Available Not Available Not Available Linzess 290 mcg capsule TK 1 C PO QD 08/19 completed Not Available Not Available Not Available Vascepa 1 gram capsule TAKE 2 CAPSULES BY MOUTH TWICE DAILY DIRECTED 09/11 completed Not Available Not Available Not Available Fioricet 50 mg-300 mg-40 mg capsule Take 1 capsule every 4 hours by oral route. 08/19 completed Not Available Not Available Not Available Fluvirin 45 mcg (15 mcg x 3)/0.5 mL intramuscul ar suspension INJECT 0.5 ML INTRAMUSC ULARLY DIRECTED. active Not Available Not Available No t Available Fluvirin 6922-6731 45 mcg (15 mcg x 3)/0.5 mL intramuscul ar suspension 08/19 completed Not Available Not Available Not Available Fluvirin (PF) 45 mcg (15 mcg x 3)/0.5 mL intramuscul ar syringe ADM 0.5ML IM UTD 08/19 completed Not Available Not Available Not Available Flucelvax Quad (PF) 60 mcg (15 mcg x 4)/0.5 mL IM syringe ADM 0.5ML IM UTD 09/10 completed Not Available Not Available Not Available Afluria Qd (36 mos up)(PF)60 mcg (15 mcg x4)/0.5 mL IM syringe ADM 0.5ML IM UTD 09/11 completed Not Available Not Available Not Available Vitals Date Recorded Body height Provider Name an d Address Organization Details Last Updated DateTime 03/15/2022 160.02 cm Not Available [facility] 3 05:52:30 Date Recorded Body height Provider Name an d Address Organization Details Last Updated DateTime 03/22/2022 160.02 cm Not Available [facility] 3 05:52:30 Date Recorded Body height Provider Name an d Address Organization Details Last Updated DateTime 04/05/2022 160.02 cm Not Available [facility] 3 05:52:30 Date Recorded Body height Provider Name an d Address Organization Details Last Updated DateTime 08/29/2022 160.02 cm Not Available [facility] 3 05:52:31 Date Recorded Body weight Body mass index (BMI) Body height Body temperature Provider Name and Address Organization Details Last Updated DateTime 09/10/2024 16748.59 g 28 kg/m2 160.02 cm 97.7 [degF] Callie Corcoran RN [facility] [address] 09/10/2024 11:43:52 Social History Question Answer Notes LastModified by Organizat ion Details LastModified Time Tobacco Smoking Status Current Every Day Smoker Callie Corcoran RN null, [facility] [address] 09/10/2024 11:42:34 What Is Your Level Of Alcohol Consumption? None [email or web address] Information not available 09/10/2024 Sex: Unknown Functional Status None recorded. Mental Status None recorded. Family History Nothing Reported Notes:THYROID HX: SISTERS Medical History Condition Response CANCER: SPECIFY Y NO SIGNIFICANT PAST MEDICAL HISTORY Y Gynecological HistoryNo gynecological history recorded. Obstetrics History GPAL:G 0 P 0 0 0 0 Past Encounters Encounter ID Performer Location Encounter Start Date Encounter Closed Date Diagnosis/Indication Diagnosis SNOMED-CT Code Diagnosis ICD10 Code Diagnosis Note [id number] [facility] [place] [address] [place] [address] 02/20/2021 00:00:00 02/21/2021 08:28:36 [id number] [facility] [place] [address] [place] [address] 03/09/2021 00:00:00 03/14/2021 07:06:59 [id number] [facility] [place] [address] [place] [address] 01/29/2022 00:00:00 01/30/2022 10:40:26 [id number] [facility] [place] [address] [place] [address] 03/15/2022 00:00:00 03/19/2022 08:37:32 [id number] [facility] [place] [address] [place] [address] 03/22/2022 00:00:00 03/26/2022 13:40:11 [id number] [facility] [place] [address] [place] [address] 04/05/2022 00:00:00 04/05/2022 14:26:51 [id number] [facility] [place] [address] [place] [address] 08/29/2022 00:00:00 08/29/2022 16:51:48 [id number] TYLER Peck [facility] [place] [place] [address] [place] [address] 09/10/2024 11:27:02 09/10/2024 12:09:40 Bilateral tinnitus 9486763146 102 H93.13 Health Concerns Section Related Observation LastModified by Organization Detai ls LastModified Time None Recorded Concern Status LastModified by Organization Details LastModified Time None Recorded Advance Directives Directive None Recorded Payers Encounter Date Sequence Insurance Name Policy Number Policy Arguello Covered Member ID Arguello Member ID Guarantor Name 09/10/2024 1 [place] Mahnaz Oseguera [id number] Mahnaz Oseguera 09/10/2024 2 [place] WHEN MEDICARE OR MEDICARE REPLACEMENT PRIMARY) Mahnaz Oseguera [id number] Mahnaz Oseguera Notes Date Note Type Note Provider Name and Address Organization Details Recorded Time 09/10/2024 text/html This patient has a past medical history significant for bipolar disorder, and UTI who presents to the office with a complaint of bilateral tinnitus that has been present for many years. She denies any change in her hearing Overall. She does report as of late that her tinnitus has become more pronounced. She denies any preceding infection, trauma, or Eustachian tube dysfunction problems that could be associated with her symptoms. She denies any otalgia. TYLER Peck [address] [facility], [facility] [address], [place], [address], [facility] 09/10/2024 12:09:13 OBGyn Episode No OBEpisode recorded.
--- OUTSIDE RECORDS SUMMARY | 2024-11-15 13:30 | XMS_ITS ---
Author Organization [facility] Address [address] [place] [address] Care Team Providers Care Curriculum Writer Name Role Phone Juanis Watson Primary Care Provider [phone] Allergies Allergen (clinical drug ingredient) Drug/Non Drug Allergy documented on EMR Reaction Allergy Type Onset Date Status Steroids steroids (uncoded) Unknown Allergy A ctive amoxicillin Amoxicillin Unknown Drug Allergy Act charlette Neosporin Unknown Drug Allergy Active risperidone RisperDAL Unknown Drug Allergy Activ e tramadol Ultram Unknown Drug Allergy Active azithromycin Zithromax Unknown Drug Allergy Acti ve Haldol Unknown Drug Allergy Active asenapine Asenapine Unknown Drug Allergy Active erythromycin Erythromycin Unknown Drug Allergy A ctive Latex Latex Unknown Allergy Active REASON FOR VISIT 2 Month F/U Medications Medication SIG (Take, Route, Frequency, Duration) Notes Start Date End Date Status chlorproMAZINE HCl 100 MG 1 tablet Orally at bedtime for 30 days Blister packs Active busPIRone HCl 10 MG 2 tablets Orally three times a day for 30 days Blister packs Active Gabapentin 600 MG 1 tablet Orally at bedtime Active Sertraline HCl 150 MG 1 tablet Orally Once a day for 30 days Blister packs Active Benztropine Mesylate 1 MG 1 tablet Orally at bedtime for 30 days Blister packs Active Potassium Active Ondansetron 4 MG 1 tablet on the tongue and allow to dissolve Orally Once a day Active Cyclobenzaprine HCl 10 MG 1 tablet Orally twice a day Active Docusate Sodium Not- Taking traZODone HCl 50 MG 0.5 to 1 tablet at bedtime as needed Orally Once a day for 30 days Blister packs 09/03/2024 Active oxyBUTYnin Not-Takin g Tamsulosin HCl Not-T aking Prazosin HCl 5 MG 2 capsules at bedtime Orally Once a day for 30 days Blister packs Active Encounters Encounter Location Date Provider Diagnosis [facility] [address] [place] [address] 09/03/2024 Juanis Watson Mood disorder F39 ; Tobacco use disorder F17.200 ; Nightmares F51.5 and 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 Previously seen on 07/23/2024 and during this appt was started on hydroxyzine as needed, increased on sertraline to 100 mg and continued on her other psychiatric medications. Previous PHQ-9 score of 9, today is 12. Reports interpersonal stressors and anniversaries leading to recent decreased moods and attempt to get high on medication. She reports some partial benefit form increase in Zoloft, will increase again [id number] daily to target depression and anxiety. Will start trazodone 50mg qhs prn for sleep, and stop hydroxyzine as she reports no benefit. Will decrease benztropine to 1mg qhs and consider switch to alternate agent as needed, discussed would benefit from coming into the office for an AIMS to fully assess her symptoms she reports of hand tremors; she reports difficulties with transportation. Continue prazosin for PTSD. Encouraged restarting individual therapy to process grief/trauma and enhance coping skills. No acute safety concerns the time of this appt, she is agreeable to treatment plan and was provided an opportunity to ask questions. May self-administer medications or be administered own oral medications per [place] protocols. Provided informed consent with understanding of side effects, adverse effects, risks and benefits as well as alternative treatments as previously discussed and with the above recommended medications & other aspects of the treatment program. Agrees to return sooner if symptoms worsen or suicidal or homicidal ideations occur. Plan Of Treatment Medication Medication Name Sig Start Date Stop Date Notes chlorproMAZINE HCl 100 MG 1 tablet Orall y at bedtime for 30 days Blister packs busPIRone HCl 10 MG 2 tablets Orally thr ee times a day for 30 days Blister packs Sertraline HCl 150 MG 1 tablet Orally On ce a day for 30 days Blister packs Benztropine Mesylate 1 MG 1 tablet Orall y at bedtime for 30 days Blister packs traZODone HCl 50 MG 0.5 to 1 tablet at bedtime as needed Orally Once a day for 30 days 09/03/2024 Blister packs Prazosin HCl 5 MG 2 capsules at bedtim e Orally Once a day for 30 days Blister packs hydrOXYzine Pamoate 50 MG 1-2 capsules O rally at bedtime as needed for 30 days Blister packs Treatment Notes Assessment Notes Insomnia due to mental disorder Today's visit: Patient is a 59-year-old female who presents for a psychiatric follow-up over phone and is located in [place]. Previously seen on 07/23/2024 and during this appt was started on hydroxyzine as needed, increased on sertraline to 100 mg and continued on her other psychiatric medications. Previous PHQ-9 score of 9, today is 12. Reports interpersonal stressors and anniversaries leading to recent decreased moods and attempt to get high on medication. She reports some partial benefit form increase in Zoloft, will increase again [id number] daily to target depression and anxiety. Will start trazodone 50mg qhs prn for sleep, and stop hydroxyzine as she reports no benefit. Will decrease benztropine to 1mg qhs and consider switch to alternate agent as needed, discussed would benefit from coming into the office for an AIMS to fully assess her symptoms she reports of hand tremors; she reports difficulties with transportation. Continue prazosin for PTSD. Encouraged restarting individual therapy to process grief/trauma and enhance coping skills. No acute safety concerns the time of this appt, she is agreeable to treatment plan and was provided an opportunity to ask questions. May self-administer medications or be administered own oral medications per [place] protocols. Provided informed consent with understanding of side effects, adverse effects, risks and benefits as well as alternative treatments as previously discussed and with the above recommended medications & other aspects of the treatment program. Agrees to return sooner if symptoms worsen or suicidal or homicidal ideations occur. Next Appt Details Follow Up: 6-8 weeks, Reason : med f/u Progress Notes * Rhona ANGUIANOB: 6 (59 yo F)Acc No.[id number]:09/03/2024 Patient: Mahnaz OWENS Provider: JACQUE Ruano :1965 A ge:59 Y S ex:Female Date:09/03/2024 Address:[address] [place], [place] [id number] Pcp:Chanda Reynolds Subjective: * Chief Complaints: * 2 Month F/U * HPI: P sych F/U: Changes since last visit?: S tates she is doing okay. States since last appointment, I'm okay went to the hospital a few weeks ago or so, tried to hurt herself tried totake pills to get high . Took generic Fioricet for headaches . Talked to randall Null about the incident. States wasn't trying to hurt herself I was trying to get high and was only in the ER and had Total blackout for a day or so . States Felix takesme back to my grandmas passing and my brother's suicide and was trying to block those memories. States with the increase of sertraline noticeda difference somewhat . States as far as sleep Vistaril doesn't seem strongenough for me . States before trazodone made her throw up but I'm willing totry it again as she's not sure what was causing it during hat time. States can get jerks in her hand and feet, last time left hand and that's why she's taking Cogentin. StatesThorazine can make her nose stuffy but I don't want that to change, I'mallergic to so much stuff and I would rather stay on the Thorazine . No longerseeing Juan he and I had a falling out and doesn't feel she can see him again. States a lot of her sx are related totrauma. Prazosin helping with daytime flashbacks, estimates 5-7 hours of sleep whentaking the Benadryl . States may contact Anneliese a therapist to get started again. Denies any present feelings of SI/HI.. D epression Screening: PHQ-9 L ittle interest or pleasure in doing things?Nearly every day F eeling down, depressed, or hopeless N ot at all T rouble falling or staying asleep, or sleeping too much M ore than half the days F eeling tired or having little energy S everal days P oor appetite or overeating M ore than half the days F eeling bad about yourself or that you are a failure, or have let yourself or your family down S everal days T rouble concentrating on things, such as reading the newspaper or watching television N early every day M oving or speaking so slowly that other people could have noticed; or the opposite, being so fidgety or restless that you have been moving around a lot more than usual N ot at all T houghts that you would be better off or of hurting yourself in some way N ot at all T otal Score 1 2 I nterpretation M oderate Depression Intervention D epression Screening Findings P ositive F ollow-Up for Depression P rescribed psychotropic medications S creening: [place] Suicide Severity Rating Scale (LF) D o you want to initiate with S creener form 1 . Wish to be : Have you wished you were or wished you could go to sleep and not wake up? N o 2 . Suicidal Thoughts: Have you actually had any thoughts of killing yourself? N o 6 . Suicide Behaviour: Have you ever done anything,started to do anything, or prepared to end your life? N o I nterpretation: L ow Risk C SSRS Interpretation and Follow Up Plan: CSSRS Interpretation and Follow Up Plan C SSRS Screen documented using SF Y es M oderate or High risk requires selection of a follow up plan C SSRS No/Low: intervention not needed at this time * ROS: P sych ROS: Constitutional A ll systems negative or controlled on medication unless indicated otherwise.. E ars/Nose/Mouth/Throat c ongestion - s/e thorazine. * Medical History: * Surgical History: b ack surgery 2000hysterectomy 2001foot surgery * Hospitalization/Major Diagno stic Procedure: b ack surgery 2000hysterectomy 2001foot surgery sychiatric inpatient for I over dosed , [facility] for 3 days Sepsychiatric inpatient for OD on medicines for trying to get high [facility] inpatient in [place], not taking my medication 1996 * Family History: F ather: . M other: alive, kidney failure .complications from surgeries.. S iblings: . 1 brother(s) . . Brother from suicide in 1996 Grandmother passed in 1996. * Social History: P rimary Social History: L iving Arrangement L iving Arrangement: D ependent Living L iving with: P gustavo(s) lives with mom I s this a supportive environment? Y es Alcohol Use A lcohol Use Frequency: N ever Illicit Substance Usage I llicit Substance Usage: N o Employment Status E mployment Status: O n Disability * Medications: T akingPotassium Cyclobenzaprine HCl 10 MG Tablet 1 tablet Orally twice a day Ondansetron 4 MG Tablet Disintegrating 1 tablet on the tongue and allow to dissolve Orally Once a day Gabapentin 600 MG Tablet 1 tablet Orally at bedtime busPIRone HCl 10 MG Tablet 2 tablets Orally three times a day , Notes to Pharmacist: Blister packschlorproMAZINE HCl 100 MG Tablet 1 tablet Orally at bedtime , Notes to Pharmacist: Blister packsBenztropine Mesylate 2 MG Tablet 1 tablet Orally at bedtime , Notes to Pharmacist: Blister packsPrazosin HCl 5 MG Capsule 2 capsules at bedtime Orally Once a day , Notes to Pharmacist: Blister packshydrOXYzine Pamoate 50 MG Capsule 1-2 capsules Orally at bedtime as needed , Notes to Pharmacist: Blister packsSertraline HCl 100 MG Tablet 1 tablet Orally Once a day , Notes to Pharmacist: Blister packsTaking Potassium Taking Cyclobenzaprine HCl 10 MG Tablet 1 tablet Orally twice a day Taking Ondansetron 4 MG Tablet Disintegrating 1 tablet on the tongue and allow to dissolve Orally Once a day Taking Gabapentin 600 MG Tablet 1 tablet Orally at bedtime Taking busPIRone HCl 10 MG Tablet 2 tablets Orally three times a day , Notes to Pharmacist: Blister packsTaking chlorproMAZINE HCl 100 MG Tablet 1 tablet Orally at bedtime , Notes to Pharmacist: Blister packsTaking Benztropine Mesylate 2 MG Tablet 1 tablet Orally at bedtime , Notes to Pharmacist: Blister packsTaking Prazosin HCl 5 MG Capsule 2 capsules at bedtime Orally Once a day , Notes to Pharmacist: Blister packsTaking hydrOXYzine Pamoate 50 MG Capsule 1-2 capsules Orally at bedtime as needed , Notes to Pharmacist: Blister packsTaking Sertraline HCl 100 MG Tablet 1 tablet Orally Once a day , Notes to Pharmacist: Blister packsNot-TakingTamsulosin HCl oxyBUTYnin Docusate Sodium Not-Taking Tamsulosin HCl Not-Taking oxyBUTYnin Not-Taking Docusate Sodium * Allergies: U ltramNeosporinLatexZithromaxRisperDALHaldolAmoxicillinsteroidsErythromycinAsenap ineno[Allergies Verified] Objective: * Vitals: * Examination: M ental Status Exam: SENSORIUM AND COGNITION A lert, A&OX4. ATTENTION AND CONCENTRATION N o deficits. APPEARANCE P luisa interview - unable to determine appearance.. ATTITUDE AND BEHAVIOR C ooperative, calm, receptive. MEMORY A dequate. EYE CONTACT P luisa interview. AFFECT P luisa interview - IRENE. MOOD D ysthymic. SPEECH QUANTITY A ppropriate. SPEECH QUALITY S pontaneous , Appropriate volume. THOUGHT PROCESS C oherent and goal directed. THOUGHT CONTENT N o evidence of delusional content , No reports of paranoia. LANGUAGE A ppropriate - WDL. MOTOR ACTIVITY P liusa interview, IRENE. SUICIDAL IDEATION D enies SI or thoughts of self harm. HOMICIDAL IDEATION D enies homicidal ideation or thoughts of aggression. HALLUCINATIONS D enies AVH, does not appear to be responding to internal stimuli. INSIGHT A dequate. JUDGMENT A dequate. FUND OF KNOWLEDGE A dequate. ABILITY TO PARTICIPATE IN TREATMENT A dequate. WILLINGNESS TO PARTICIPATE IN TREATMENT A dequate. ? Assessment: * Assessment: 1. M ood disorder - F39 (Primary) S pecify :Unspecified N otes :Consideration to Borderline Personality Disorder 2 . T obacco use disorder - F17.200 3 . N ightmares - F51.5 4 . I nsomnia due to mental disorder - F51.05 Plan: * Treatment: 2. N ightmares Refill Prazosin HCl Capsule, 5 MG, 2 capsules at bedtime, Orally, Once a day, 30 days, 60 Capsule, Refills 1, Notes to Pharmacist: Blister packs. 3. I nsomnia due to mental disorder Stop hydrOXYzine Pamoate Capsule, 50 MG, 1-2 capsules, Orally, at bedtime as needed, 30 days, 60, Notes to Pharmacist: Blister packs; S tart traZODone HCl Tablet, 50 MG, 0.5 to 1 tablet at bedtime as needed, Orally, Once a day, 30 days, 30, Refills 1, Notes to Pharmacist: Blister packs. ? Notes:Today's visit: Patient is a 59-year-old female who presents for a psychiatric follow-up over phone and is located in [place]. Previously seenon 07/23/2024nd during this appt was started on hydroxyzine as needed, increased on sertralineto 100 mg and continued on her other psychiatric medications.Previous PHQ-9 score of9, today is12. Reports interpersonal stressors and anniversaries leading to recent decreased moods and attempt to get high on medication. She reports some partial benefit form increase in Zoloft, will increase again [id number] daily to target depression and anxiety. Will start trazodone 50mg qhs prn for sleep, and stop hydroxyzine as she reports no benefit. Will decrease benztropine to 1mg qhs and consider switch to alternate agent as needed, discussed would benefit from coming into the office for an AIMS to fully assess her symptoms she reports of hand tremors; she reports difficulties with transportation. Continue prazosin for PTSD. Encouraged restarting individual therapy to process grief/trauma and enhance coping skills.No acute safety concerns the time of this appt, she is agreeable to treatment plan and was provided an opportunity to ask questions. May self-administer medications or be administered own oral medications per [place] protocols. Provided informed consent with understanding of side effects, adverse effects, risks and benefits as well as alternative treatments as previously discussed and with the above recommended medications & other aspects of the treatment program. Agrees to return sooner if symptoms worsen or suicidal or homicidal ideations occur. * Procedure Codes: G 0467 [facility] VISIT ESTABLISHED PATIENT * Follow Up: 6 -8 weeks (Reason: med f/u) * * E WRITING REPORTER Sign off status: Completed true * Provider: Cynthia Watson, PMHNP Date: 1 11/04/2023 Generated for Vanessa zendejas/Shazia/Alejandra on: 0 11/15/2024 01:29 PM CDT History and Physical Notes * HPI (History of Present Illness) Category Sub-Category Detail Notes Category Not es Depression Screening PHQ-9 Little inte rest or pleasure in doing things: Nearly every day Feeling down, depressed, or hopeless: No t at all Trouble falling or staying a sleep, or sleeping too much: More than half the days Feeling tired or having little energy: S everal days Poor appetite or overeating: More than h residential the days Feeling bad about yourself o r that you are a failure, or have let yourself or your family down: Several days Trouble concentrating on thi ngs, such as reading the newspaper or watching television: Nearly every day Moving or speaking so slowly that other people could have noticed; or the opposite, being so fidgety or restless that you have been moving around a lot more than usual: Not at all Thoughts that you would be b maria g off or of hurting yourself in some way: Not at all Total Score: 12 Interpretation: Moderate Depression Intervention Depression Screening Findings: P ositive Follow-Up for Depression: Prescribed psy chotropic medications Psych F/U Changes since last visit?: States she is doing okay. States since last appointment, I'm okay went to the hospital a few weeks ago or so, tried to hurt herself tried to take pills to get high . Took generic Fioricet for headaches . Talked to people from [place] about the incident. States wasn't trying to hurt herself I was trying to get high and was only in the ER and had Total blackout for a day or so . States Felix takes me back to my grandmas passing and my brother's suicide and was trying to block those memories. States with the increase of sertraline noticed a difference somewhat . States as far as sleep Vistaril doesn't seem strong enough for me . States before trazodone made her throw up but I'm willing to try it again as she's not sure what was causing it during hat time. States can get jerks in her hand and feet, last time left hand and that's why she's taking Cogentin. States Thorazine can make her nose stuffy but I don't want that to change, I'm allergic to so much stuff and I would rather stay on the Thorazine . No longer seeing Juan he and I had a falling out and doesn't feel she can see him again. States a lot of her sx are related to trauma. Prazosin helping with daytime flashbacks, estimates 5-7 hours of sleep when taking the Benadryl . States may contact Anneliese a therapist to get started again. Denies any present feelings of SI/HI. Screening [place] Suicide Sev erity Rating Scale (LF) Do you want to initiate with: Screener form 1. Wish to be : Have you wished you were or wished you could go to sleep and not wake up?: No 2. Suicidal Thoughts: Have you actually had any thoughts of killing yourself?: No 6. Suicide Behavior Question: Have you ever done anything,started to do anything, or prepared to end your life?: No Interpretation:: Low Risk Do Not Use CSSRS Interpretation and Follow Up Plan CSSRS Interpretation and Follow Up Plan CSSRS Screen documented using SF: Yes Moderate or High risk requir es selection of a follow up plan: CSSRS No/Low: intervention not needed at this time Examination Category Sub-Category Detail Notes Category Not es Mental Status Exam SENSORIUM AND COGNITION Alert, A&OX 4 ATTENTION AND CONCENTRATION No deficits APPEARANCE Phone interview - un able to determine appearance. ATTITUDE AND BEHAVIOR Cooperative, calm, receptive MEMORY Adequate EYE CONTACT Phone interview AFFECT Phone interview - UT A MOOD Dysthymic SPEECH QUANTITY Appropriate SPEECH QUALITY Spontaneous , Approp riate volume THOUGHT PROCESS Coherent and goal di rected THOUGHT CONTENT No evidence of delus ional content , No reports of paranoia MOTOR ACTIVITY Phone interview, IRENE SUICIDAL IDEATION Denies SI or thought s of self harm HOMICIDAL IDEATION Denies homicidal ailyn ation or thoughts of aggression HALLUCINATIONS Denies AVH, does not appear to be responding to internal stimuli INSIGHT Adequate JUDGMENT Adequate FUND OF KNOWLEDGE Adequate ABILITY TO PARTICIPATE IN TREATMENT Adeq uate WILLINGNESS TO PARTICIPATE IN TREATMENT Adequate LANGUAGE Appropriate - WDL
--- OUTSIDE RECORDS SUMMARY | 2024-11-15 13:30 | XMS_ITS | Patient Health Record ---
Author Organization [facility] Address [address] [place] [address] Care Team Providers Care Paralegal Legal Secretary Name Role Phone Juanis Watson Primary Care Provider [phone] Chanda Reynolds Unavailable [phone] Allergies Allergen (clinical drug ingredient) Drug/Non Drug [...] A ctive Latex Latex Unknown Allergy Active Reason For Referral No Information Medications Medication SIG (Take, Route, Frequency, Duration) Notes Start Date End Date Status hydrOXYzine HCl 50 MG 0.5 to 1 tablet as needed Orally twice a day for 30 days Blister packs 10/20/2024 Active Sertraline HCl 150 MG 1 tablet Orally Once a day for 30 days Blister packs Active chlorproMAZINE HCl 25 MG 1 tablet Orally in the morning for 30 days Blister packs 10/20/2024 Active chlorproMAZINE HCl 100 MG 1 tablet Orally at bedtime for 30 days Blister packs Active Gabapentin 600 MG 1 tablet Orally at bedtime Active Ondansetron 4 MG 1 tablet on the tongue and allow to dissolve Orally Once a day Active Cyclobenzaprine HCl 10 MG 1 tablet Orally twice a day Active Prazosin HCl 5 MG 2 capsules at bedtime Orally Once a day for 30 days Blister packs Active Potassium Active busPIRone HCl 30 MG 1 tablet Orally Twice a day for 30 days Blister packs Active Docusate Sodium Not- Taking oxyBUTYnin Not-Takin g Tamsulosin HCl Not-T aking Social History Tobacco Use: Social History Observation Description Date Details (start date - stop date) Current Smoker NA - NA Tobacco Control (Standard) Question Answer Notes Tobacco use: Current every day smoker Additional Findings: Tobacco user Moderate cigar ette smoker (10-19 cigs/day) Problems Problem Type SNOMED Code ICD Code Onset Dates Problem Status W/U Status Risk Notes Problem Mood disorder (14867560) Mood disorder (F39) Active confirmed Consideration to Borderline Personality Disorder vs Schizoaffective d/o depressed type Problem Insomnia due to mental disorder (43998448) 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 Problem Nightmares (442051832) Nightmares (F51.5) 024 Active confirmed Problem Anxiety state (186289324) Anxiety disorder, unspecified type (F41.9) 025 Active confirmed Problem Tobacco use (515573520) Tobacco use disorder (F17.200) 024 Active confirmed Encounters Encounter Location Date Provider Diagnosis [address] [address] 05/13/2024 Maximinoria Watson Tobacco use disorder F17.200 ; Mood disorder F39 and Nightmares F51.[address], [place] [address] 06/10/2024 Kyria Watson Mood disorder F39 ; Tobacco use disorder F17.200 and Nightmares F51.5 [facility] [address] [address] 07/23/2024 Kyria Watson Mood disorder F39 ; Tobacco use disorder F17.200 ; Nightmares F51.5 and Insomnia due to mental disorder F51.05 [facility] [address] [address] 09/03/2024 Kyria Watson Mood disorder F39 ; Tobacco use disorder F17.200 ; Nightmares F51.5 and Insomnia due to mental disorder F51.05 [facility] [address] [place] [address] 10/20/2024 Juanis Watson Mood disorder F39 ; Tobacco use disorder F17.200 ; Nightmares F51.5 ; Insomnia due to mental disorder F51.05 and Anxiety disorder, unspecified type F41.[address] [place] [address] 06/11/2024 Juanis Watson [facility] [address] [place] [address] 08/25/2024 Chanda Gail Mood disorder F39 [facility] [address] [place] [address] 11/11/2024 Juanis Watson Assessments Encounter Date Diagnosis (ICD Code) Assessment Notes Treatment Notes Treatment Clinical Notes Section Notes 06/10/2024 Mood disorder (ICD-10 - F39) Consideration to Borderline Personality Disorder 10/20/2024 Mood disorder (ICD-10 - F39) Consideration to Borderline Personality Disorder vs Schizoaffective d/o depressed type 10/20/2024 Tobacco use disorder (ICD-10 - F17.200) 07/23/2024 Mood disorder (ICD-10 - F39) Consideration to Borderline Personality Disorder 07/23/2024 Tobacco use disorder (ICD-10 - F17.200) 05/13/2024 Mood disorder (ICD-10 - F39) Consideration to Borderline Personality Disorder 05/13/2024 Tobacco use disorder (ICD-10 - F17.200) 09/03/2024 Mood disorder (ICD-10 - F39) Consideration to Borderline Personality Disorder 08/25/2024 Mood disorder (ICD-10 - F39) Consideration to Borderline Personality Disorder 09/03/2024 Tobacco use disorder (ICD-10 - F17.200) 05/13/2024 Nightmares (ICD-10 - F51.5) Today's visit: Patient is a 58-year-old female who presents for a psychiatric evaluation over phone and is located in [place]. PHQ-9 score of 8, KACIE-7 score of 8, MDQ with 9 yes. Pt reports she is needing to find a new provider and is trying to establish services before she runs out of medication. She reports Thorazine is beneficial for her mood sx, but without Cogentin she has tremor like movements. She reports sertraline is beneficial for her depression but has not had in a few weeks and would like to restart at 50 mg. She does not need a refill of Prazosin and reports this dose is adequate for her nightmares. She would like to trial increasing buspar for her increased anxiety. She has a long hx of impulsivity to over dosing on medication when feeling emotionally reactive to stressful situations around her. She does report in the past another provider brought up the possibility of borderline personality disorder; at this time unclear of manic hx but will consider an unspecified mood disorder. Due to hx of OD, discussed medication dispensing in blister packs only which she is agreeable to. Unable to complete AIMS due to nature of appt, denies any irregular muscle movements; would benefit from an in person appointment. No acute safety concerns the time of this appt, she is agreeable to treatment plan and was provided an opportunity to ask questions. May self-administer medications or be administered own oral medications per [place] protocols. Provided informed consent with understanding of side effects, adverse effects, risks and benefits as well as alternative treatments as previously discussed and with the above recommended medications & other aspects of the treatment program. Agrees to return sooner if symptoms worsen or suicidal or homicidal ideations occur. 06/10/2024 Tobacco use disorder (ICD-10 - F17.200) 07/23/2024 Nightmares (ICD-10 - F51.5) 10/20/2024 Nightmares (ICD-10 - F51.5) 07/23/2024 Insomnia due to mental disorder (ICD-10 - F51.05) Today's visit: Patient is a 58-year-old female who presents for a psychiatric follow-up over phone and is located in [place]. Previously seen on 06/10/2024 and during this appt was continued on current medication. Previous PHQ-9 score of 13, today is 9. Presenting with anxiety and depression although noticeable improvement with the addition of sertraline. Reports current regimen is helpful. Recommended trial of Flonase OTC in AM for sinus concerns d/t side effect of Thorazine, and educated on risks of overdosing on Tylenol PM and Benadryl use. Patient agreeable to increase sertraline to 100mg daily for depression/anxiety and start hydroxyzine 50mg 1-2 capsules nightly for sleep in place of Tylenol PM - she voices understanding to not take both together (with diphenhydramine) or another antihistamine. Continue other medications as prescribed. She is requesting to not use blister packs and feels she is in control of her impulses with current medications; however given her hx at this time I feel it is in her best interested to continue with blister packs at this time if she is agreeable. Unable to complete AIMS due to nature of appt, denies any irregular muscle movements; would benefit from an in person appointment. No acute safety concerns the time of this appt, she is agreeable to treatment plan and was provided an opportunity to ask questions. May self-administer medications or be administered own oral medications per [place] protocols. Provided informed consent with understanding of side effects, adverse effects, risks and benefits as well as alternative treatments as previously discussed and with the above recommended medications & other aspects of the treatment program. Agrees to return sooner if symptoms worsen or suicidal or homicidal ideations occur. 10/20/2024 Insomnia due to mental disorder (ICD-10 - F51.05) Today's visit: Patient is a 59-year-old female who presents for a psychiatric follow-up over phone and is located in [place]. Previously seen on 09/03/2024 and during this appt was started on trazodone for insomnia and increased on sertraline to 150 mg. Anxiety and depressive symptoms are both improved with sertraline 150mg daily but still having some impairment with her anxiety. Will increase Thorazine to 25mg every morning to target residual anxiety and paranoia as well as increase Buspar. Discussed risks of Tylenol PM overuse and encouraged to reduce. Discontinued trazodone and Cogentin as they do not appear to be providing benefit currently and would like to reduce anticholinergic use as she is requesting to start hydroxyzine. Will start hydroxyzine 50 mg as needed twice a day for anxiety/insomnia off label from FDA use. Encourage pt to consider therapy; she declines at this time. No acute safety concerns the time of this appt, she is agreeable to treatment plan and was provided an opportunity to ask questions. May self-administer medications or be administered own oral medications per [place] protocols. Provided informed consent with understanding of side effects, adverse effects, risks and benefits as well as alternative treatments as previously discussed and with the above recommended medications & other aspects of the treatment program. Agrees to return sooner if symptoms worsen or suicidal or homicidal ideations occur. 06/10/2024 Nightmares (ICD-10 - F51.5) Today's visit: Patient is a 58-year-old female who presents for a psychiatric follow-up over phone and is located in [place]. Previously seen on 05/13/2024 for an evaluation and during this appt was continued on Buspar 20 mg TID, Chlorpromazine 100 mg, Cogentin 2 mg QHS, Sertraline 50 mg, Prazosin 10 mg. Previous PHQ-9 score of 8, today is 13. Pt today reports increase feelings of depression that are further contributed by recent stressors, which she is able to also acknowledge. She does report noticeable feelings of depression before recent events as well and wishes to increase Zoloft - discussed increasing to 75 mg, and she is agreeable. She wishes to continue taking other medications as currently prescribed and reports benefit from taking them for mood swings, AVH and anxiety. Will continue blister packs due to her hx of impulsivity. Unable to complete AIMS due to nature of appt, denies any irregular muscle movements; would benefit from an in person appointment. No acute safety concerns the time of this appt, she is agreeable to treatment plan and was provided an opportunity to ask questions. May self-administer medications or be administered own oral medications per [place] protocols. Provided informed consent with understanding of side effects, adverse effects, risks and benefits as well as alternative treatments as previously discussed and with the above recommended medications & other aspects of the treatment program. Agrees to return sooner if symptoms worsen or suicidal or homicidal ideations occur. 09/03/2024 Nightmares (ICD-10 - F51.5) 09/03/2024 Insomnia due to mental disorder (ICD-10 - F51.05) Today's visit: Patient is a 59-year-old female who presents for a psychiatric follow-up over phone and is located in [place]. Previously seen on 07/23/2024 and during this [...] form increase in Zoloft, will increase again [id number] daily to target depression and anxiety. Will [...] or be administered own oral medications per [place] protocols. Provided informed consent with understanding of side effects, adverse effects, risks and benefits as well as alternative treatments as previously discussed and with the above recommended medications & other aspects of the treatment program. Agrees to return sooner if symptoms worsen or suicidal or homicidal ideations occur. 10/20/2024 Anxiety disorder, unspecified type (ICD-10 - F41.9) Plan Of Treatment No Information Insurance Providers Payer Name Payer Address Payer Phone Subscriber Number Group Number Insured Name Patient Relationship to Insured Coverage Start Date Coverage End Date MEDICARE PART A [address] [place] [address] [id number] Mahnaz Oseguera Self - patient is the insured 3 MEDICAID [address] [place] [address] [id number] Mahnaz Oseguera Self - patient is the insured 3 [employer] [address] [place] [address] [id number] Mahnaz Oseguera Self - patient is the insured 3 3 Medical (General) History Medical History History ICD Code Uretal cancer - resolved Constipation Surgical History Surgery Date(Month/Year) back surgery 1999 hysterectomy 2000 foot surgery Hospitalization History Reason Date(Month/Year) Psychiatric inpatient for OD on medicine s for trying to get high Jul 2023 Psychiatric inpatient for I over dosed , [facility] for 3 days Sep 2023 foot surgery hysterectomy 2000 back surgery 1999 Psychiatric inpatient in [place], not taking my medication 1996
--- OUTSIDE RECORDS SUMMARY | 2024-11-15 13:30 | XMS_ITS ---
Author Organization [facility] Care Team Providers Care Game Manager Name Role Phone Bea Mistry Unavailable Unavail able Allergies and adverse reactions No Known Allergies Care Team Name Role Address Phone Organization Dates Bea Mistry PCP [facility] [address] [place], [place], [facility], [facility] (Office): : (Pager): [facility] 09/25/2012 - 02/17/2013 Goals Section Description Status Target Date Falls and fall related injur y will be reduced using the least restrictive means possible and allowing for the highest level of independence. Active 03/29/2013 Resident and resdient's guardian's wishes will b e honored Active 03/29/2013 Resident will achieve level IV status Active 03/29/2013 Resident will have no more t miranda one episode of verbally aggressive behavior per week Active 03/29/2013 Resident will not have any incidents of drug usa ge Active 03/29/2013 Resident will not have incidences of depression Active 03/29/2013 Resident will participate in 2 structured activi ties a week. Active 03/29/2013 Resident will provide a 30 d ishcarge notice if she makes living arrangements Active 03/29/2013 Resident will remain safe at all times Active 03/29/2013 Resident will reside in facility Active 03/29/2013 The resident will be free fr om s/sx of liver complications, including infection, abnormal or unexplained bleeding, malnutrition, anemia, cognitive decline or mental status changes through review date. Active 03/29/2013 The resident will be free of adverse drug reactions through the review date. Active 03/29/2013 The resident will be free of infection, pain or bleeding in the oral cavity by/through review date. Active 03/29/2013 The resident will be/remain free of drug related complications, including movement disorder, discomfort, hypotension, gait disturbance, constipation/impaction or cognitive/behavioral impairment through review date. Active 03/29/2013 The resident will not have a n interruption in normal activities due to pain through the review date. Active 03/29/2013 The resident will not have d iscomfort related to side effects of analgesia through the review date. Active 03/29/2013 The resident will remain lesli e from discomfort, complications or s/sx related to dx of GERD through review date. Active 2012 The resident will verbalize adequate relief of pain or ability to cope with incompletely relieved pain through the review date. Active 03/29/2013 Will not have complications from hormone replace ment therapy. Active 03/29/2013 Will not recieve med or have products used that she is alergic to Active 03/29/2013 Will not violate the smoking policy Active 03/29/2013 Immunizations Immunization Status Vaccine Details Vaccine Code CodeSystem Date Notes Influenza cancelled Influenza, high-dose, split virus, quadrivalent, injectable, preservative free 197 CVX created date: 02/05/2014 consent date: 10/05/2012 Educated by Jannet Funez on 09/25/2012 Resident states I already had this Hepatitis B cancelled hepatitis B vaccine, adult dosage 43 CVX created date: 02/05/2014 consent date: 10/05/2012 Educated by Asia Mathews on 09/25/2012 Pneumovax Dose 1 cancelled cre ated date: 02/05/2014 consent date: 10/05/2012 Educated by Jannet Funez on 09/25/2012 Resident states I already had this TB 1 Step Mantoux (PPD) completed tuberculin skin test; unspecified formulation lotNumber: [id number] Given Left Forearm 98 CVX created date: 02/05/2014 consent date: 10/04/2012 administer ed date: 10/04/2012 exp 4/14 TB 1 Step Mantoux (PPD) completed tuberculin skin test; unspecified formulation lotNumber: [id number] Given Right Forearm 98 CVX created date: 02/05/2014 consent date: 09/26/2012 administer ed date: 09/26/2012 Educated by Jono Carnes LPN on 09/26/2012 expires 12/21 Tetanus completed Td(adult) unspecified formulation lotNumber: [id number] Given Right Deltoid 139 CVX created date: 02/05/2014 consent date: 10/05/2012 administer ed date: 10/05/2012 Educated by Asia Mathews on 10/05/2012 EXP 11/19/13 Mental Status Section Date Assessment Total Score Description 12/29/2012 BIMS 15 cognitively int act PHQ-9 03 minimal depress ion Reason for Referral No Reasons for Referral Entered Social History Social History Observation Description Start Date End Date Code Code System Current Smoking Status Tobacco smoking consumption unknown 929997974 SNOMED CT Sex Assigned At Female 1965 49383-6 [facility] Vital Signs Code Code System Vitals Name Values and Units Timing Information 9279-1 [facility] Respiratory Rate Value=24.0 Units=/m in 02/17/2013 8462-4 [facility] Blood Pressure-Diastolic Value=80 Un its=mmHg 02/17/2013 8480-6 [facility] Blood Pressure-Systolic Ibixl=163 Un its=mmHg 02/17/2013 8310-5 [facility] Body Temperature Value=97.0 Units= F 02/17/2013 8867-4 [facility] Heart rate Value=76.0 Units=/min 07/2013 73351-6 [facility] Weight Bdixd=877.0 Units=Lbs 02/2013 2339-0 [facility] Blood Sugar Ihtva=393.0 Units=mg/dL 11/08/2012 8302-2 [facility] Height Value=64.0 Units=Inches 09/25/2012
--- OUTSIDE RECORDS SUMMARY | 2024-11-15 13:30 | XMS_ITS | Referral Summary ---
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 Never 08/07/2023 Do you belong to any clubs o r organizations such as congregational groups, unions, fraternal or athletic groups, or [...] place to sleep or slept in a fci (including now)? No 08/07/2023 Personal Safety Answer Date Recorded Have you ever been in or are you currently in a harmful physical or emotional relationship or is someone making you feel afraid or unsafe? Denies 08/05/2023 Comments No Sex and Gender Information Value Date Recorded Sex Assigned at Not on file Legal Sex Female 4:20 PM [employer] Gender Identity Not on file Sexual Orientation Not on file Last Filed Vital Signs Vital Sign Reading Time Taken Comments Blood Pressure 109/63 08/07/2023 3:31 PM [employer] Pulse 101 08/07/2023 3:31 PM [employer] Temperature 36.9 C (98.5 F) 08/07/2023 3:31 PM [employer] Respiratory Rate 18 08/07/2023 3:31 PM [employer] Oxygen Saturation 98% 08/07/2023 3:31 PM [employer] Inhaled Oxygen Concentration - - Weight 71.7 kg (158 lb 1.1 oz) 08/05/2023 12:15 PM [employer] Height 157.5 cm (5' 2 ) 08/05/2023 12:15 PM [employer] Body Mass Index 28.91 08/05/2023 12:15 PM [employer] Plan of Treatment Not on file Medical Devices Implanted Type Area Manufacturer'S Representative Device Identifier Shelf Expiration Date Model / Serial / Lot [employer]ood Contour 6fr 26cm Large Inner Lumen Low Profile Bladder Shane Taper Latex Free 180-223 - [id number] Implanted:Qty: 1 on 08/05/2023 by Ismael Vanegas MD at [facility] Stent Right: Ureter [employer]ood 04/01/2026 [id number] / / [id number] Insurance MEDICARE IDPA MEDICARE IDPA MEDICARE IDPA Advance Directives For more information, please contact: [phone] * Full Code (Latest Code Status on File) Date Activated Date Inactivated Comments 08/05/2023 8:31 PM 08/07/2023 7:47 PM Care Teams Panel Monitor Relationship Specialty Start Date End Date Neil Barbour MD [address] [place] [id number] PCP - General Gastroenterology 03/27/23 [place] [address] [place] [address] Consulting Physician Urology 08/07/23
--- OUTSIDE RECORDS SUMMARY | 2024-11-15 13:30 | XMS_ITS ---
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 Role Phone Juanis Watson Primary Care Provider Allergies Allergen (clinical drug ingredient) Drug/Non Drug [...] Latex Unknown Allergy Active REASON FOR VISIT 6 week f u Medications Medication SIG (Take, Route, Frequency, Duration) Notes Start Date End Date Status chlorproMAZINE HCl 100 MG 1 tablet Orally at bedtime for 30 days Blister packs Active Sertraline HCl 150 MG 1 tablet Orally Once a day for 30 days Blister packs Active Prazosin HCl 5 MG 2 capsules at bedtime Orally Once a day for 30 days Blister packs Active Gabapentin 600 MG 1 tablet Orally at bedtime Active busPIRone HCl 30 MG 1 tablet Orally Twice a day for 30 days Blister packs Active Docusate Sodium Not- Taking oxyBUTYnin Not-Takin g Tamsulosin HCl Not-T aking hydrOXYzine HCl 50 MG 0.5 to 1 tablet as needed Orally twice a day for 30 days Blister packs 10/20/2024 Active chlorproMAZINE HCl 25 MG 1 tablet Orally in the morning for 30 days Blister packs 10/20/2024 Active Ondansetron 4 MG 1 tablet on the tongue and allow to dissolve Orally Once a day Active Cyclobenzaprine HCl 10 MG 1 tablet Orally twice a day Active Potassium Active Problems Problem Type SNOMED Code ICD Code Onset Dates Problem Status W/U Status Risk Notes Problem Anxiety state (074082527) Anxiety disorder, unspecified type (F41.9) 10/20/2024 Active confirmed Encounters Encounter Location Date Provider Diagnosis [address], [place] [address] 10/20/2024 Reginaamber MayerWatson Mood disorder F39 ; Tobacco use disorder F17.200 ; Nightmares F51.5 ; 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 Previously seen on 09/03/2024 and during this [...] or be administered own oral medications per [facility] protocols. Provided informed consent with understanding of side effects, adverse effects, risks and benefits as well as alternative treatments as previously discussed and with the above recommended medications & other aspects of the treatment program. Agrees to return sooner if symptoms worsen or suicidal or homicidal ideations occur. 10/20/2024 Anxiety disorder, unspecified type (ICD-10 - F41.9) Plan Of Treatment Medication Medication Name Sig Start Date Stop Date Notes Benztropine Mesylate 1 MG 1 tablet Orall y at bedtime for 30 days Blister packs chlorproMAZINE HCl 100 MG 1 tablet Orall y at bedtime for 30 days Blister packs Sertraline HCl 150 MG 1 tablet Orally On ce a day for 30 days Blister packs traZODone HCl 50 MG 0.5 to 1 tablet at bedtime as needed Orally Once a day for 30 days Blister packs Prazosin HCl 5 MG 2 capsules at bedtim e Orally Once a day for 30 days Blister packs busPIRone HCl 30 MG 1 tablet Orally Twic e a day for 30 days Blister packs hydrOXYzine HCl 50 MG 0.5 to 1 tablet as needed Orally twice a day for 30 days 10/20/2024 Blister packs chlorproMAZINE HCl 25 MG 1 tablet Orally in the morning for 30 days 10/20/2024 Blister packs Treatment Notes Assessment Notes Insomnia due to mental disorder Today's visit: Patient is a 59-year-old female who presents for a psychiatric follow-up over phone and is located in [place]. Previously seen on 09/03/2024 and during this [...] or be administered own oral medications per [facility] protocols. Provided informed consent with understanding of side effects, adverse effects, risks and benefits as well as alternative treatments as previously discussed and with the above recommended medications & other aspects of the treatment program. Agrees to return sooner if symptoms worsen or suicidal or homicidal ideations occur. Next Appt Details Follow Up: 6 Weeks, Reason: med f/u Progress Notes * ANNMARIE RhonaB: 6 (59 yo F)Acc No.[id number]:10/20/2024 Patient: Mahnaz OWENS Provider: JACQUE Ruano :1965 A ge:59 Y S ex:Female Date:10/20/2024 Address:[address] [place], [place] [id number] Pcp:Chanda Reynolds Subjective: * Chief Complaints: * 6 week f u * HPI: P sych F/U: Changes since last visit?: S tates I'm doing okay states feeling anxious I'm nervous .States wrote some things to talk about. States with sleep the trazodone didn'ttouch me . States at night will take Tylenol 4-6 pills at night, I know that's too much . States doesn'thave a twinge during the day but will have it at night, referring to muscle movement in her legs. States will havejerking in lower leg, and they are restless only while in bed/later in the evening. Has had some improvement with theincreased dose of sertraline having more energy and getting up and doingthings and not so much dwelling , lightens the load as well some noctiable improvement in anxiety. States regarding her mood, mom is currently in dialysis and worries what will happen when she dies. Estimatessleeping 5-7 hours of sleep. States has a sweet tooth and snacking more. Deniesside effects from medication. Tried two of the trazodone but did not help and would like to continue. Deniesnightmares recently and the prazosin helps. Denies paranoia but I feel scaredall the time . Denies any AH, Denies VH. Does not want to engage in therapy right now, reports some paranoid feelings that they're talking about her.Denies any present feelings of SI/HI. Reports Thorazine will give her a stuffy nose. She is requesting hydroxyzine for anxiety, which may also help with sleep/stuffy nose. Discussed if prescribing will stop Cogentin and she is agreeable.. D epression Screening: PHQ-9 L ittle interest or pleasure in doing things?Several days F eeling down, depressed, or hopeless N ot at all T rouble falling or staying asleep, or sleeping too much S everal days F eeling tired or having little energy S everal days P oor appetite or overeating M ore than half the days F eeling bad about yourself or that you are a failure, or have let yourself or your family down S everal days T rouble concentrating on things, such as reading the newspaper or watching television M ore than half the days M oving or speaking so slowly that other people could have noticed; or the opposite, being so fidgety or restless that you have been moving around a lot more than usual N ot at all T houghts that you would be better off or of hurting yourself in some way N ot at all T otal Score 8 I nterpretation M ild Depression Intervention D epression Screening Findings N egative F ollow-Up for Depression P rescribed psychotropic medications S creening: [place] Suicide Severity Rating Scale (LF) D o you want to initiate with S creener form 1 . Wish to be : Have you wished you were or wished you could go to sleep and not wake up? N o 2 . Suicidal Thoughts: Have you actually had any thoughts of killing yourself? N o 6 . Suicide Behavior Question: Have you ever done anything,started to do anything, or prepared to end your life? N o I nterpretation: L ow Risk C SSRS Interpretation and Follow Up Plan: CSSRS Interpretation and Follow Up Plan C SSRS Screen documented using SF Y es R isk Disposition from SF L ow - No Follow Up Plan Required F ollow Up Plan N o Follow Up Plan required at this time. * ROS: P sych ROS: Constitutional A ll systems negative or controlled on medication unless indicated otherwise.. E ars/Nose/Mouth/Throat c ongestion - s/e thorazine. * Medical History: * Surgical History: b ack surgery 2000hysterectomy 2000foot surgery * Hospitalization/Major Diagno stic Procedure: b ack surgery 1999hysterectomy 2000foot surgery sychiatric inpatient for I over dosed , [facility] for 3 days Sepsychiatric inpatient for OD on medicines for trying to get high [facility] inpatient in [place], not taking my medication 1996 * Family History: F ather: . M other: alive, kidney failure .complications from surgeries.. S iblings: . 1 brother(s) . . Brother from suicide in 1996 Grandmother passed in 1996. * Social History: P tom Social History: L iving Arrangement L iving Arrangement: D ependent Living L iving with: Melvin gustavo(s) lives with mom I s this a supportive environment? Y es Alcohol Use A lcohol Use Frequency: N ever Illicit Substance Usage I llicit Substance Usage: N o Employment Status E mployment Status: O n Disability * Medications: T akingbusPIRone HCl 10 MG Tablet 2 tablets Orally three times a day , Notes to Pharmacist: Blister packschlorproMAZINE HCl 100 MG Tablet 1 tablet Orally at bedtime , Notes to Pharmacist: Blister packsBenztropine Mesylate 1 MG Tablet 1 tablet Orally at bedtime , Notes to Pharmacist: Blister packsSertraline HCl 150 MG Capsule 1 tablet Orally Once a day , Notes to Pharmacist: Blister packsPrazosin HCl 5 MG Capsule 2 capsules at bedtime Orally Once a day , Notes to Pharmacist: Blister packstraZODone HCl 50 MG Tablet 0.5 to 1 tablet at bedtime as needed Orally Once a day , Notes to Pharmacist: Blister packsPotassium Cyclobenzaprine HCl 10 MG Tablet 1 tablet [...] Notes to Pharmacist: Blister packsTaking Benztropine Mesylate 1 MG Tablet 1 tablet Orally at bedtime , Notes to Pharmacist: Blister packsTaking Sertraline HCl 150 MG Capsule 1 tablet Orally Once a day , Notes to Pharmacist: Blister packsTaking Prazosin HCl 5 MG Capsule 2 capsules at bedtime Orally Once a day , Notes to Pharmacist: Blister packsTaking traZODone HCl 50 MG Tablet 0.5 to 1 tablet at bedtime as needed Orally Once a day , Notes to Pharmacist: Blister packsTaking Potassium Taking Cyclobenzaprine HCl 10 MG Tablet 1 tablet Orally twice a day Taking Ondansetron 4 MG Tablet Disintegrating 1 tablet on the tongue and allow to dissolve Orally Once a day Taking Gabapentin 600 MG Tablet 1 tablet Orally at bedtime Not-TakingTamsulosin HCl oxyBUTYnin Docusate Sodium Medication List reviewed and reconciled with the patientNot-Taking Tamsulosin HCl Not-Taking oxyBUTYnin Not- Taking Docusate Sodium Medication List reviewed and reconciled with the patient * Allergies: U ltramNeosporinLatexZithromaxRisperDALHaldolAmoxicillinsteroidsErythromycinAsenap ineno[Allergies Verified] Objective: * Vitals: * Examination: M ental Status Exam: SENSORIUM AND COGNITION A lert, A&OX4. ATTENTION AND CONCENTRATION N o deficits. APPEARANCE P luisa interview - unable to determine appearance.. ATTITUDE AND BEHAVIOR C ooperative, calm, receptive. MEMORY A dequate. EYE CONTACT P luisa interview. AFFECT P luisa interview - IRENE. MOOD D ysthymic. SPEECH QUANTITY T alkative. SPEECH QUALITY S pontaneous , Appropriate volume. THOUGHT PROCESS C oherent and goal directed. THOUGHT CONTENT R eports some feelings of paranoia pertaining to others. LANGUAGE A ppropriate - WDL. MOTOR ACTIVITY P luisa interview, IRENE. SUICIDAL IDEATION D enies SI [...] N otes :Consideration to Borderline Personality Disorder vs Schizoaffective d/o depressed type 2 . T obacco use disorder - F17.200 3 . N ightmares - F51.5 4 . I nsomnia due to mental disorder - F51.05 5 . A nxiety disorder, unspecified type - F41.9 Plan: * Treatment: 2. N ightmares Refill Prazosin HCl Capsule, 5 MG, 2 capsules at bedtime, Orally, Once a day, 30 days, 60 Capsule, Refills 1, Notes to Pharmacist: Blister packs. 3. I nsomnia due to mental disorder Stop traZODone HCl Tablet, 50 MG, 0.5 to 1 tablet at bedtime as needed, Orally, Once a day, 30 days, 30, Notes to Pharmacist: Blister packs. Notes:Today's visit: Patient is a 59-year-old female who presents for a psychiatric follow-up over phone and is located in [place]. Previously seenon 09/03/2024 and during this appt was started on trazodone for insomnia and increased on sertraline to 150 mg.Anxiety and depressive symptoms are both improved with [...] or be administered own oral medications per [facility] protocols. Provided informed consent with understanding of side effects, adverse effects, risks and benefits as well as alternative treatments as previously discussed and with the above recommended medications & other aspects of the treatment program. Agrees to return sooner if symptoms worsen or suicidal or homicidal ideations occur. 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 * Provider: Cynthia Watson, PMHNP Date: 10/20/2024 Generated for Vanessa zendejas/Shazia/Alejandra on: 0 11/15/2024 01:29 PM CDT History and Physical Notes * HPI (History of Present Illness) Category Sub-Category Detail Notes Category Not es Depression Screening PHQ-9 Little inte rest or pleasure in doing things: Several days Feeling down, depressed, or hopeless: No t at all Trouble falling or staying asleep, or sl eeping too much: Several days Feeling tired or having little energy: S everal days Poor appetite or overeating: More than h long term the days Feeling bad about yourself o r that you are a failure, or have let yourself or your family down: Several days Trouble concentrating on thi ngs, such as reading the newspaper or watching television: More than half the days Moving or speaking so slowly that other people could have noticed; or the opposite, being so fidgety or restless that you have been moving around a lot more than usual: Not at all Thoughts that you would be b maria g off or of hurting yourself in some way: Not at all Total Score: 8 Interpretation: Mild Depression Intervention Depression Screening Findings: N egative Follow-Up for Depression: Prescribed psy chotropic medications Psych F/U Changes since last visit?: States I'm doing okay states feeling anxious I'm nervous . States wrote some things to talk about. States with sleep the trazodone didn't touch me . States at night will take Tylenol 4-6 pills at night, I know that's too much . States doesn't have a twinge during the day but will have it at night, referring to muscle movement in her legs. States will have jerking in lower leg, and they are restless only while in bed/later in the evening. Has had some improvement with the increased dose of sertraline having more energy and getting up and doing things and not so much dwelling , lightens the load as well some noctiable improvement in anxiety. States regarding her mood, mom is currently in dialysis and worries what will happen when she dies. Estimates sleeping 5-7 hours of sleep. States has a sweet tooth and snacking more. Denies side effects from medication. Tried two of the trazodone but did not help and would like to continue. Denies nightmares recently and the prazosin helps. Denies paranoia but I feel scared all the time . Denies any AH, Denies VH. Does not want to engage in therapy right now, reports some paranoid feelings that they're talking about her. Denies any present feelings of SI/HI. Reports Thorazine will give her a stuffy nose. She is requesting hydroxyzine for anxiety, which may also help with sleep/stuffy nose. Discussed if prescribing will stop Cogentin and she is agreeable. Screening Tyler Suicide Sev erity Rating Scale (LF) Do [...] end your life?: No Interpretation:: Low Risk CSSRS Interpretation and Follow Up Plan CSSRS Interpretation and Follow Up Plan CSSRS Screen documented using SF: Yes Risk Disposition from SF: Low - No Follo w Up Plan Required Follow Up Plan: No Follow Up Plan requir ed at this time. Examination Category Sub-Category Detail Notes Category Not es Mental Status Exam SENSORIUM AND COGNITION Alert, A&OX 4 ATTENTION AND CONCENTRATION No deficits APPEARANCE Phone interview - un able to determine appearance. ATTITUDE AND BEHAVIOR Cooperative, calm, receptive MEMORY Adequate EYE CONTACT Phone interview AFFECT Phone interview - UT A MOOD Dysthymic SPEECH QUANTITY Talkative SPEECH QUALITY Spontaneous , Approp riate volume THOUGHT PROCESS Coherent and goal di rected THOUGHT CONTENT Reports some feeling s of paranoia pertaining to others MOTOR ACTIVITY Phone interview, IRENE SUICIDAL IDEATION [...]
--- OUTSIDE RECORDS SUMMARY | 2024-11-15 13:30 | XMS_ITS | CONTINUITY OF CARE DOCUMENT ---
Author Name supriya epps Address Unknown Organization [facility] Address [address] [place] [address] [address] [place] [address] Phone [phone] Care Team Providers Care Cardiovascular Physician Assistant Name Role Phone LEV SUERO, PATRICIA Unavailable INSURANCE PROVIDERS Payer name Policy type / Coverage type [employer] red green party ID [employer] Medicaid 1 [id number] [place] [employer] Medicare [id number]
--- NOTE | 2024-11-15 13:39 | ECG_ITS ---
Test Date: 2024-11-15 13:52:01 Measurements Intervals Edna Rate: 88 P: 66 WY: 159 QRS: -3 QRSD: 106 T: 33 QT: 372 QTc: 452 Interpretive Statements SINUS RHYTHM RSR' IN V1 OR V2, PROBABLY NORMAL VARIANT No previous ECG available for comparison Electronically Signed On 11-16-2024 11:14:15 CDT by Maximiliano Head M.D.
--- NOTE | 2024-11-15 13:40 | ED_ITS ---
HPI - General Adult General Chief complaint: Unspecified Stated complaint: od History of Present Illness HPI narrative: 59-year-old female with a past medical history including schizophrenia, bipolar depression, previous suicide attempts and previous overdose ingestions. Most recent ingestion and overdose was last year requiring ICU admission. Patient presents to the emergency department today for acting belligerent in public, EMS initially thought that she may have had an overdose as she had pills around her but she is just caring her normal prescription medications with her, she denies adamantly that she took any medications today. Denies any drinking or substances. Denies any suicidality or homicidality. She is very tearful and agitated, combative with staff, requesting placement into a psychiatric facility as she does not feel safe at home. She thinks that people are trying to hurt her and still her things. No family or any other collateral information available at this time. EMR used for remaining details. Patient has a long history of psychiatric illness and polypharmacy. On review of the prescription medications services patient has had 111 [place] filled since October 26 in addition to 100 tabs of butalbital and 180 gabapentin on the same date. Patient and me denies taking any medications, she has medications with her that appear full and do not appear to be missing any dosages on her blister packs either. Patient is asking for Dilaudid by name as she states she has pain all over. Patient denies any trauma or injury. Related Data Home Medications ?Medication ?Instructions ?Recorded ?Confirmed ?Last Taken ?Type benztropine 2 mg tablet 2 mg PO BID PRN involuntary 04/18/22 07/26/24 Unknown History movement prazosin 5 mg capsule 10 mg PO HS 04/18/22 07/26/24 Unknown History ondansetron HCl 4 mg tablet 4 mg PO TID PRN Nausea And Vomiting 11/22/22 07/26/24 Unknown History chlorpromazine 100 mg tablet 100 mg PO HS 03/27/23 07/26/24 Unknown History buspirone 15 mg tablet 15 mg PO TID 03/28/23 07/26/24 Unknown History gabapentin 300 mg capsule 300 mg PO TID 05/25/23 07/26/24 Unknown History sertraline 50 mg tablet (Zoloft) 100 mg PO DAILY 06/06/23 07/26/24 Unknown History fdssoncsdy-eayltylehdqgn-hagpthzf 1 tablet PO Q8H PRN Headache 07/26/24 07/26/24 07/24/24 History 50 mg-325 mg-40 mg tablet cyclobenzaprine 10 mg tablet 10 mg PO HS 07/26/24 07/26/24 Unknown History Allergies Allergy/AdvReac Type Severity Reaction Status Date / Time grass pollen Allergy Intermediate Hives Verified 11/15/24 13:39 amoxicillin (From Augmentin) Allergy Hives Verified 11/15/24 13:39 asenapine (From Saphris) Allergy Hives Verified 11/15/24 13:39 bacitracin (From Neosporin Allergy Rash Verified 11/15/24 13:39 ([id number])) clavulanic acid (From Allergy Hives Verified 11/15/24 13:39 Augmentin) erythromycin base Allergy Hives Verified 11/15/24 13:39 haloperidol (From Haldol) Allergy Swelling Verified 11/15/24 13:39 of Lip/Tongue/Throat latex Allergy Rash Verified 11/15/24 13:39 neomycin (From Neosporin Allergy Rash Verified 11/15/24 13:39 (icp-sen-wzyfx)) olanzapine (From Zyprexa) Allergy Swelling Verified 11/15/24 13:39 of Lip/Tongue/Throat polymyxin B (From Neosporin Allergy Rash Verified 11/15/24 13:39 (pia-uga-bqidy)) risperidone (From Risperdal) Allergy Hives Verified 11/15/24 13:39 tramadol (From Ultram) Allergy Rash Verified 11/15/24 13:39 ciprofloxacin AdvReac Vomiting Verified 11/15/24 13:39 ibuprofen AdvReac Vomiting Verified 11/15/24 13:39 Steriod AdvReac Agitated Uncoded 11/15/24 13:39 Review of Systems 2 Review of Systems: As reviewed above in [facility] Past Medical History Medical History Tobacco dependence Carcinoma of right ureter Chronic obstructive pulmonary disease Schizophrenia Distal radial fracture December 2022 Ankle fracture, lateral malleolus, closed December 2022 Seizure Migraine Anxiety Bipolar mood disorder Suicide attempt Surgical History Surgical History History of ureterostomy History of kidney surgery H/O dilation and curettage H/O tubal ligation History of tonsillectomy H/O foot surgery 2021 X2 History of back surgery 1999 H/O: hysterectomy 2000 Family History Family History Father Alcoholism Grandparent Diabetes mellitus Hypertension Heart disease Mother Kidney disease Grandparent Alcoholism Social History Social History Social History: Surrogate medical decision maker: Landy Silva, . Code status: Full code. Smoking packs per day: 1.5 Smoking cigarettes per day: 30.0 Years smoked: 45 Smoking pack-years: 67.50 Smoking status: Current every day smoker Second hand tobacco smoke exposure: No Alcohol intake: unknown Substance use: unknown Substance use type: unknown Other substance usage details: something for headaches Last use: 03/25/23 Lack of Transportation: No Lack of Food: Never True Current Housing: I Have Housing Concerned About Future Housing: No Difficulty Paying Gas/Electric Bills: No Difficulty Paying for Meds: No Currently Unemployed: No Education: High School Diploma/GED Difficulty w/ Childcare or Family Care: No Living arrangements: with family Additional living arrangements comments: Lives with mother in [place]. Occupation/Education: unemployed Additional occupation/education comments: Disabled. Spiritual care concerns: No Exam 2 Narrative: GENERAL: Belligerent and uncooperative, combative, very tearful HEAD: [Normocephalic, atraumatic.] EYES: [PERRLA and EOMI.] ENT: Nares clear, no rhinorrhea or epistaxis. Mucous membranes moist. Tongue fasciculations noted NECK: Supple. CHEST: [Clear to auscultation. No respiratory distress.] HEART: [Regular rate and rhythm]. No murmur heard. [Normal peripheral pulses.] ABDOMEN: [Soft, nondistended], [nontender], [No rigidity or guarding] EXTREMITIES: Normal range of motion. [No edema.] SKIN: Warm, dry, no rash. NEURO: [No focal deficits]. Appears alert and oriented, moving all extremities symmetrically without any apparent weakness or deficits. PSYCH: Agitated, belligerent, uncooperative, tearful. Denies suicidality or homicidality. Requesting psychiatric hospitalization Course Vital Signs Vital signs: Vital Signs Temperature 36.6 C 11/15/24 13:25 Pulse Rate 90 11/15/24 13:25 Respiratory Rate 18 11/15/24 13:25 Blood Pressure 124/98 H 11/15/24 13:25 Pulse Oximetry 99 11/15/24 13:25 Oxygen Delivery Room Air 11/15/24 13:25 Temperature 36.6 C 11/15/24 13:25 Pulse Rate 90 11/15/24 13:25 Respiratory Rate 18 11/15/24 13:25 Blood Pressure 124/98 H 11/15/24 13:25 Pulse Oximetry 99 11/15/24 13:25 Oxygen Delivery Room Air 11/15/24 13:25 Medical Decision Making MDM Narrative Medical decision making narrative: 59-year-old female presenting from EMS after being found belligerent in public and agitated, tearful. [place]. Patient is not able to provide me salient details or give me a coherent story about what happened. She appears belligerent and potentially intoxicated. She is agitated and combative with staff and states that she will calm down if she was provided Dilaudid for her diffuse pain. Her examination otherwise is unremarkable she has no signs of trauma, otherwise appears well aside from her affect and demeanor. She has a long history of psychiatric illness and previous suicide attempt with ingestion. EMS was concerned about potential ingestion as they found some loose pills but patient does carry her medications with her and they appear full without any tampering or missing doses. On review of the prescription medications services patient has been prescribed large amounts of narcotics, butalbital and gabapentin recently and filled up through October 26. Differential diagnosis at this time includes decompensated psychiatric illness, possible intoxication or overdose on unknown substance. Low suspicion for actual suicide attempt but she does have a history. Broad psychiatric workup was ordered this time including toxicological screenings, urine testing, COVID swab for placement. Patient was re-evaluated frequently and had no toxidrome presentation or vital abnormalities. Patient's workup was largely unremarkable. Urine drug screen positive for barbiturates which she is prescribed. No other acute findings, negative toxicological screening otherwise. Patient and denies any suicidality or homicidality and denies any ingestion of any substances today aside from her normal prescriptions. She was observed for several hours here in the emergency department without any concerns and at this time patient is medically cleared for psychiatric evaluation and final disposition per their recommendations. Prior to psych evaluation I was informed by nursing staff the patient had eloped without completing treatment. She was not able to be evaluated by the crisis and psychiatric team nor did she get any discharge instructions or return precautions. Medical Records Medical records reviewed: Yes I reviewed the external patient's medical records. Vital Signs Vital Signs: Vital Signs Temperature 36.6 C 11/15/24 13:25 Pulse Rate 90 11/15/24 13:25 Respiratory Rate 18 11/15/24 13:25 Blood Pressure 124/98 H 11/15/24 13:25 Pulse Oximetry 99 11/15/24 13:25 Oxygen Delivery Room Air 11/15/24 13:25 Temperature 36.6 C 11/15/24 13:25 Pulse Rate 90 11/15/24 13:25 Respiratory Rate 18 11/15/24 13:25 Blood Pressure 124/98 H 11/15/24 13:25 Pulse Oximetry 99 11/15/24 13:25 Oxygen Delivery Room Air 11/15/24 13:25 Lab Data Lab results reviewed: Yes I reviewed the patient's lab results. 11/15/24 14:03 11/15/24 14:03 Labs: Lab Results 11/15/24 11/15/24 Range/Units 14:03 14:28 WBC 8.3 (4.5-10.0) K/mm3 RBC 4.05 L (4.2-5.4) M/mm3 Hgb 14.8 (12.0-15.0) g/dL Hct 44.1 (37.0-47.0) % MCV 108.9 H (80-100) fl MCH 36.5 H (26-34) pg MCHC 33.6 (32-36) g/dl RDW 12.6 (11.5-14.5) % Plt Count 295 (150-375) k/mm3 MPV 9.4 (7.4-10.4) fl Immature Gran % (Auto) 0.2 (0-0.5) % Neut % (Auto) 62.6 (45.5-73.1) % Lymph % (Auto) 25.9 (18.3-44.2) % Snyder % (Auto) 9.6 H (2.6-8.5) % Eos % (Auto) 1.1 (0-4.4) % Baso % (Auto) 0.6 (0.2-1.2) % Lymph # (Auto) 2.14 (0.9-3.2) K/mm3 Snyder # (Auto) 0.8 H (0.1-0.6) K/mm3 Eos # (Auto) 0.1 (0-0.3) K/mm3 Baso # (Auto) 0.1 (0.0-0.1) K/mm3 Abs Immat Gran (auto) 0.02 (0.00-0.031) K/mm3 Absolute Neuts (auto) 5.2 (1.3-6.7) K/mm3 Absolute Nucleated RBC 0.000 (0.0-0.012) K/mm3 Band Neutrophils % Not Reportable Nucleated RBC % 0.0 (0.0-0.2) % Platelet Estimate Adequate (Adequate) Macrocytosis 1+ (NORMAL) Schistocytes None seen Sodium 142 (137-145) mmol/L Potassium 3.2 L (3.4-5.0) mmol/L Chloride 106 (98-107) mmol/L Carbon Dioxide 22 (22-30) mmol/L Anion Gap 14 H (4-12) mmol/L BUN 12 D (7-17) mg/dL Creatinine 0.63 L (0.7-1.0) mg/dL Estim Creat Clear Calc 83 ml/min Estimated GFR > 60 (59 - ) Glucose 90 (65-110) mg/dL Calcium 9.7 (8.4-10.2) mg/dL Total Bilirubin 0.7 (0.2-1.3) mg/dL AST 31 (14-36) U/L ALT 24 (6-35) U/L Alkaline Phosphatase 86 (38-126) U/L Total Protein 9.0 H (6.3-8.2) g/dL Albumin 4.7 (3.5-5.1) g/dL TSH 1.530 (0.465-4.680) uIU/mL Urine Color Yellow (Yellow) Urine Appearance Clear (Clear) Urine pH 5.0 (5.0-9.0) Ur Specific [place] 1.014 (1.001-1.035) Urine Protein Negative (Negative) mg/dL Urine Glucose (UA) Negative (Negative) mg/dL Urine Ketones Negative (Negative) mg/dL Ur Blood (Man) Negative (Negative) Urine Nitrate Negative (Negative) Urine Bilirubin Negative (Negative) Urine Urobilinogen 0.2 (<2.0) mg/dL Leukocyte Esterase Rfl Trace H (Negative) ROCHELLE/UL Urine RBC 0-2 (0-2) /hpf Urine WBC 6-10 H (0-3) /hpf Ur Squamous Epith Cells Occasional (Few) /hpf Urine Bacteria 4+ H /hpf Urine Casts 0-2 Salicylates < 1.0 L (2-20) mg/dL Urine Opiates Screen Negative (Negative) Urine Methadone Screen Negative (Negative) Acetaminophen < 10 L (10-30) ug/mL Ur Barbiturates Screen Positive A (Negative) Ur Phencyclidine Scrn Negative (Negative) Ur Amphetamine Screen Negative (Negative) U Benzodiazepines Scrn Negative (Negative) Urine Cocaine Screen Negative (Negative) U Cannabinoids Screen Negative (Negative) Ethyl Alcohol < 10 (<10) mg/dL SARS-CoV-2 RNA (RT-PCR) Negative (Negative) Discharge Plan Discharge Clinical Impression: Psychiatric illness Patient Disposition: Elopement After Seen by Prov Condition: Stable Patient Language: Swedish Prescriptions: No Action ondansetron HCl 4 mg tablet 4 mg PO TID PRN (Reason: Nausea And Vomiting) sertraline [Zoloft] 50 mg tablet 100 mg PO DAILY chlorpromazine 100 mg tablet 100 mg PO HS buspirone 15 mg tablet 15 mg PO TID cyclobenzaprine 10 mg tablet 10 mg PO HS ihjfmbhcwi-yrhbcbabizfnb-ovgo 50-325-40 mg Tablet 1 tablet PO Q8H PRN (Reason: Headache) sulfamethoxazole-trimethoprim [Bactrim DS] 800-160 mg tablet 1 tablet PO Q12H Qty: 10 0RF prazosin 5 mg capsule 10 mg PO HS benztropine 2 mg tablet 2 mg PO BID PRN (Reason: involuntary movement) gabapentin 300 mg capsule 300 mg PO TID Follow-up/Referrals: Km,Neil Fang MD [Primary Care Provider] - Time of Disposition: 15:42
[2024-11-15 14:11] LABS: Basophils Absolute Auto 0.1 K/mm3 (0.0-0.1); Basophils Percent Auto 0.6 % (0.2-1.2); Eosinophils Absolute Auto 0.1 K/mm3 (0-0.3); Eosinophils Percent Auto 1.1 % (0-4.4); Hematocrit 44.1 % (37.0-47.0); Hemoglobin 14.8 g/dL (12.0-15.0); Immature Granulocyte Absolute 0.02 K/mm3 (0.00-0.031); Immature Granulocyte Percent A 0.2 % (0-0.5); Lymphocytes Absolute Auto 2.14 K/mm3 (0.9-3.2); Lymphocytes Percent Auto 25.9 % (18.3-44.2); Mean Corpuscular HGB Conc 33.6 g/dl (32-36); Mean Corpuscular Hemoglobin 36.5 pg (26-34); Mean Corpuscular Volume 108.9 fl (80-100); Mean Platelet Volume 9.4 fl (7.4-10.4); Monocytes Absolute Auto 0.8 K/mm3 (0.1-0.6); Monocytes Percent Auto 9.6 % (2.6-8.5); Neutrophils Absolute Auto 5.2 K/mm3 (1.3-6.7); Neutrophils Percent Auto 62.6 % (45.5-73.1); Platelet Count Result 295 k/mm3 (150-375); Red Blood Count 4.05 M/mm3 (4.2-5.4); Red Cell Distribution Width 12.6 % (11.5-14.5); White Blood Count 8.3 K/mm3 (4.5-10.0)
[2024-11-15 14:36] LABS: Acetaminophen < 10 ug/mL (10-30); Ethanol < 10 mg/dL (<10); Salicylate < 1.0 mg/dL (2-20)
[2024-11-15 14:37] LABS: Alanine Aminotransferase 24 U/L (6-35); Albumin Level 4.7 g/dL (3.5-5.1); Alkaline Phosphatase 86 U/L (38-126); Anion Gap 14 mmol/L (4-12); Aspartate Amino Transferase 31 U/L (14-36); Bilirubin,Total 0.7 mg/dL (0.2-1.3); Blood Urea Nitrogen 12 mg/dL (7-17); Calcium 9.7 mg/dL (8.4-10.2); Carbon Dioxide 22 mmol/L (22-30); Chloride 106 mmol/L (98-107); Estimated CRCL calculation 83 ml/min; Estimated Glomerular Filt Rate > 60; Glucose 90 mg/dL (65-110); Potassium 3.2 mmol/L (3.4-5.0); Sodium 142 mmol/L (137-145)
[2024-11-15 14:39] LABS: Platelet Estimate Adequate (Adequate); Schistocytes None Seen
[2024-11-15 14:40] LABS: Macrocytosis 1+ (NORMAL)
[2024-11-15 14:43] LABS: Add Urine Microscopic? YES; Appearance Urine Clear (Clear); Bacteria Urine 4+ /hpf; Bilirubin Urine Negative (Negative); Blood Urine Negative (Negative); Color Urine Yellow (Yellow); Glucose Urine UA Negative (Negative); Ketones Urine Negative (Negative); Leukocyte Esterase Ur Trace LEU/UL (Negative); Nitrate Urine Negative (Negative); Non Pathogenic Casts 0-2; Protein Urine Negative (Negative); RBC Urine 0-2 /hpf (0-2); Specific Grav Ur 1.014 (1.001-1.035); Squamous Epithelial Cell Urine Occasional /hpf (Few); Urobilinogen Urine 0.2 mg/dL (<2.0)
[2024-11-15 14:47] LABS: SARS-CoV-2 RNA PCR Negative (Negative)
[2024-11-15 14:52] LABS: Amphetamine Screen Urine Negative (Negative); Barbiturate Screen Urine Positive (Negative); Benzodiazepines Screen Urine Negative (Negative); Cannabinoid Screen Urine Negative (Negative); Cocaine Screen Urine Negative (Negative); Methadone Screen Urine Negative (Negative); Opiate Screen Urine Negative (Negative); Phencyclidine Screen Urine Negative (Negative)
--- NOTE | 2024-11-15 15:11 | PC.NURSE ---
Pt requesting Ketamine for her pain. Pt becomes angry when told she will not get Ketamine and ambulates out of dept with steady gait. Pt refused to take her bag of home meds with her.
== END 2024-11-15 15:14 | disposition left against medical advice (07) ==
PROVIDERS: Emergency Provider Student in an Organized Health Care Education/Training Program; PCP Internal Medicine Gastroenterology
DX: F99 Mental disorder, not otherwise specified (principal); Z11.52 Encounter for screening for COVID-19; F31.9 Bipolar disorder, unspecified; F20.9 Schizophrenia, unspecified; F41.9 Anxiety disorder, unspecified; F17.210 Nicotine dependence, cigarettes, uncomplicated; J44.9 Chronic obstructive pulmonary disease, unspecified; Z85.54 Personal history of malignant neoplasm of ureter; Z90.710 Acquired absence of both cervix and uterus; Z79.899 Other long term (current) drug therapy
CPT/HCPCS: 36415; 80053; 80143; 80179; 80307; 81001; 82077; 84443; 85025; 87086; 87635; 93005; 99283

== ENCOUNTER 2024-12-08 10:12 | Outpatient (CLI) | payer MEDICARE, MEDICAID, SELFPAY ==
--- NOTE | ~2024-12-08 | XR_ITS ---
XR hip RT min 2V 12/08/2024 10:31 Indication: Right hip pain Procedure: 2 views right hip Comparison: No prior studies for comparison. Findings: Moderate osteoarthritis of the right hip. No fracture, subluxation or dislocation. No signi ficant soft tissue abnormality. No foreign bodies. Impression: 1: Moderate osteoarthritis of the right hip. Reviewed, dictated and finalized at location A. Impression: 1: Moderate osteoarthritis of the right hip.
--- OUTSIDE RECORDS SUMMARY | 2024-12-08 11:14 | XMS_ITS ---
Author Organization [facility] Address [address] [place] [address] Care Team Providers Care Informatics Specialist Name Role Phone Juanis Watson Primary Care Provider [phone] REASON FOR VISIT 6 week f/u Encounters Encounter Location Date Provider Diagnosis [facility] [address] [place] [id number] 12/08/2024 Juanis Watson Plan Of Treatment Next Appt Details Provider Name:Juanis louis, 12/08/2024 01:00:00 PM, [address] [place], [address], Progress Notes * Rhona ANGUIANOB: 6 (59 yo F)Acc No.[id number]:12/08/2024 UNLOCKED PROGRESS NOTE Patient: Mahnaz OWENS Provider: JACQUE Ruano :1965 A ge:59 Y S ex:Female Date:12/08/2024 Address:[address] [place], [place] [id number] Subjective: * Chief Complaints: * 1 . 6 week f/u. * Medical History: Objective: * Vitals: Assessment: Plan: * Treatment: * * Electronic signature of Regina Watson on 12/08/2024 at 11:13 AM CDT Sign off status: Pending * Provider: JACQUE Ruano Date: 0 12/08/2024 Generated for Vanessa zendejas/Shazia/eTransmitting on: 0 12/08/2024 11:13 AM CDT
--- OUTSIDE RECORDS SUMMARY | 2024-12-08 11:14 | XMS_ITS | Patient Health Record ---
Author Organization [facility] Address [address] [place] [address] Care Team Providers Care Renovation Plant Supervisor Name Role Phone Juanis Watson Primary Care Provider Chanda Reynolds Unavailable [phone] Allergies Allergen (clinical drug ingredient) Drug/Non Drug [...] W/U Status Risk Notes Problem Mood disorder (00386262) Mood disorder (F39) Active confirmed Consideration to Borderline Personality Disorder vs Schizoaffective d/o depressed type Problem Insomnia due to mental disorder (49995762) 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 Problem Nightmares (651850749) Nightmares (F51.5) 024 Active confirmed Problem Anxiety state (391513677) Anxiety disorder, unspecified type (F41.9) 025 Active confirmed Problem Tobacco use (451072342) Tobacco use disorder (F17.200) 024 Active confirmed Encounters Encounter Location Date Provider Diagnosis [address] [address] 05/13/2024 Maximinoria Watson Tobacco use disorder F17.200 ; Mood disorder F39 and Nightmares F51.[address] [place] [address] 06/10/2024 Kyria Watson Mood disorder F39 ; Tobacco use disorder F17.200 and Nightmares F51.5 [facility] [address] [address] 07/23/2024 Kyria Watson Mood disorder F39 ; Tobacco use disorder F17.200 ; Nightmares F51.5 and Insomnia due to mental disorder F51.05 [facility] [address] [address] 09/03/2024 Kyria Watson Mood disorder F39 ; Tobacco use disorder F17.200 ; Nightmares F51.5 and Insomnia due to mental disorder F51.05 [place] [place] [address] 10/20/2024 Juanis Watson Mood disorder F39 ; Tobacco use disorder F17.200 ; Nightmares F51.5 ; Insomnia due to mental disorder F51.05 and Anxiety disorder, unspecified type F41.[address] [place] [address] 06/11/2024 Juanis Watson [facility] [address] [place] [address] 08/25/2024 Chanda Dalesiddharth Mood disorder F39 [facility] [address] [address] 11/11/2024 Juanis Watson Assessments Encounter Date Diagnosis (ICD Code) Assessment Notes Treatment Notes Treatment Clinical Notes Section Notes 05/13/2024 Mood disorder (ICD-10 - F39) Consideration to Borderline Personality Disorder 05/13/2024 Tobacco use disorder (ICD-10 - F17.200) 06/10/2024 Mood disorder (ICD-10 - F39) Consideration to Borderline Personality Disorder 07/23/2024 Mood disorder (ICD-10 - F39) Consideration to Borderline Personality Disorder 07/23/2024 Tobacco use disorder (ICD-10 - F17.200) 08/25/2024 Mood disorder (ICD-10 - F39) Consideration to Borderline Personality Disorder 09/03/2024 Mood disorder (ICD-10 - F39) Consideration to Borderline Personality Disorder 10/20/2024 Mood disorder (ICD-10 - F39) Consideration to Borderline Personality Disorder vs Schizoaffective d/o depressed type 10/20/2024 Tobacco use disorder (ICD-10 - F17.200) 10/20/2024 Nightmares (ICD-10 - F51.5) 09/03/2024 Tobacco use disorder (ICD-10 - F17.200) 06/10/2024 Tobacco use disorder (ICD-10 - F17.200) 07/23/2024 Nightmares (ICD-10 - F51.5) 05/13/2024 Nightmares (ICD-10 - F51.5) Today's visit: Patient is a 58-year-old female who presents for a psychiatric evaluation over phone and is located in [place]. PHQ-9 score of 8, KACIE-7 score of [...] or be administered own oral medications per [facility] protocols. Provided informed consent with understanding of [...] follow-up over phone and is located in [place]. Previously seen on 05/13/2024 for an evaluation [...] or be administered own oral medications per [facility] protocols. Provided informed consent with understanding of side effects, adverse effects, risks and benefits as well as alternative treatments as previously discussed and with the above recommended medications & other aspects of the treatment program. Agrees to return sooner if symptoms worsen or suicidal or homicidal ideations occur. 07/23/2024 Insomnia due to mental disorder (ICD-10 - F51.05) Today's visit: Patient is a 58-year-old female who presents for a psychiatric follow-up over phone and is located in [place]. Previously seen on 06/10/2024 and during this [...] or be administered own oral medications per [facility] protocols. Provided informed consent with understanding of side effects, adverse effects, risks and benefits as well as alternative treatments as previously discussed and with the above recommended medications & other aspects of the treatment program. Agrees to return sooner if symptoms worsen or suicidal or homicidal ideations occur. 09/03/2024 Nightmares (ICD-10 - F51.5) 10/20/2024 Insomnia due to mental disorder (ICD-10 - F51.05) Today's visit: Patient is a 59-year-old female who presents for a psychiatric follow-up over phone and is located in [place]. Previously seen on 09/03/2024 and during this [...] or be administered own oral medications per [facility] protocols. Provided informed consent with understanding of side effects, adverse effects, risks and benefits as well as alternative treatments as previously discussed and with the above recommended medications & other aspects of the treatment program. Agrees to return sooner if symptoms worsen or suicidal or homicidal ideations occur. 09/03/2024 Insomnia due to mental disorder (ICD-10 - F51.05) Today's visit: Patient is a 59-year-old female who presents for a psychiatric follow-up over phone and is located in [place]. Previously seen on 07/23/2024 and during this [...] form increase in Zoloft, will increase again [id number] daily to target depression and anxiety. Will [...] or be administered own oral medications per [facility] protocols. Provided informed consent with understanding of side effects, adverse effects, risks and benefits as well as alternative treatments as previously discussed and with the above recommended medications & other aspects of the treatment program. Agrees to return sooner if symptoms worsen or suicidal or homicidal ideations occur. 10/20/2024 Anxiety disorder, unspecified type (ICD-10 - F41.9) Plan Of Treatment Next Appt Details Provider Name:Juanis Annalisa louis, 12/08/2024 01:00:00 PM, [address] [place] [address], [phone], Insurance Providers Payer Name Payer Address Payer Phone Subscriber Number Group Number Insured Name Patient Relationship to Insured Coverage Start Date Coverage End Date MEDICARE PART A [address] [place] [address] [id number] Mahnaz Oseguera Self - patient is the insured 3 MEDICAID [address] [place] [address] [id number] Mahnaz Oseguera Self - patient is the insured 3 [employer] [address] [place] [address] [id number] Mahnaz Oseguera Self - patient is the [...] 2000 back surgery 1999 Psychiatric inpatient in [place], not taking my medication 1996
--- OUTSIDE RECORDS SUMMARY | 2024-12-08 11:14 | XMS_ITS | Clinical Summary ---
Author Organization [facility] Address [address] [place] [address] Care Team Providers Care Criminology Teacher Name Role Phone Unavailable Primary Care Provider Unavailabl e Source Comments [facility],non-owned Affiliates and Associated Physician Practices is amultiple site organization consisting of ambulatory clinics and hospital sitesin [place], [place] and [place]. This disclosure is being madepursuant to the Care Everywhere program and may not contain all information available regarding this patient. Last updated 18.[facility] Social History Tobacco Use Types Packs/Day Years [...] to complete this topic MENINGOCOCCAL (Group B) VACC INE SHARED DECISION-MAKING Aged Out No longer eligibl e based on patient's age to complete this topic MENINGOCOCCAL GROUPS A/C/Y/W VACCINE Aged Out No longer eligible b ased on patient's age to complete this topic PNEUMOCOCCAL VACCINE Aged Out No long er eligible based on patient's age to complete [place] [address] [place] [address]
--- OUTSIDE RECORDS SUMMARY | 2024-12-08 11:14 | XMS_ITS | Clinical Summary ---
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
--- OUTSIDE RECORDS SUMMARY | 2024-12-08 11:14 | XMS_ITS ---
Author Organization Formerly [facility], [facility] Address [address] [place] [address] Care Team Providers Care Procedural Nurse Name Role Phone Juanis Watson Primary Care Provider REASON FOR VISIT refills Encounters Encounter Location Date Provider Diagnosis [facility] [address] [place] [phone] 11/11/2024 Juanis Watson Plan Of Treatment Next Appt Details Provider Name:Juanis louis, 12/08/2024 01:00:00 PM, [address], [place], [address], Progress Notes * Rhona ANGUIANOB: 6 (59 yo F)Acc No.[id number]:11/11/2024 Patient: Mahnaz OWENS :1965 A ge:59 Y S ex:Female Address:[address] [place] [id number] * true * Date: Generated for Arii aashish/Shazia/eTransmitting on: 0 12/08/2024 11:13 AM CDT
--- OUTSIDE RECORDS SUMMARY | 2024-12-08 11:14 | XMS_ITS | Clinical Summary ---
Author Organization [facility] [place] [place] [address] Address [address] [place] [address] Care Team Providers Care Frame Hand Name Role Phone Neil Barbour MD Primary Care Provider Ismael Vanegas MD Unavailable [phone] Allergies Active Allergy Reactions Criticality Noted [...] Medium 10/19/2012 unk Lidocaine Unknown 10/19/2012 unk Lopsdxli-Ewxniylxgn-Ginjb yxin Olanzapine Anaphylaxis High 10/19/2012 unk Oxycodone [...] Back Surgery - (Added by TW Conv) TX TOTAL ABDOMINAL HYSTERECT W/WO RMVL TUBE OVARY Hysterectomy - (Added by TW Conv) [place] TONSILLECTOMY PRIMARY/SEC ONDARY <AGE 13 Tonsillectomy - [...] Day Cigarettes 1 48 Smokeless Tobacco: Never [facility] Utilities Answer Date Recorded In the [...] often do you attend chur ch or anabaptist services? Never 08/07/2023 Do you belong to any clubs o r organizations such as lutheran groups, unions, fraternal or athletic groups, or [...] place to sleep or slept in a skilled nursing (including now)? No 08/07/2023 Personal Safety Answer Date Recorded Have you ever been in or are you currently in a harmful physical or emotional relationship or is someone making you feel afraid or unsafe? Denies 08/05/2023 Comments No Sex and Gender Information Value Date Recorded Sex Assigned at Not on file Legal Sex Female 4:20 PM TAG AND LABEL CUTTER Gender Identity Not on file Sexual Orientation Not on file Obstetrics History Last Filed Vital Signs Vital Sign Reading Time Taken Comments Blood Pressure 109/63 08/07/2023 3:31 PM TAG AND LABEL CUTTER Pulse 101 08/07/2023 3:31 PM TAG AND LABEL CUTTER Temperature 36.9 C (98.5 F) 08/07/2023 3:31 PM TAG AND LABEL CUTTER Respiratory Rate 18 08/07/2023 3:31 PM TAG AND LABEL CUTTER Oxygen Saturation 98% 08/07/2023 3:31 PM TAG AND LABEL CUTTER Inhaled Oxygen Concentration - - Weight 71.7 kg (158 lb 1.1 oz) 08/05/2023 12:15 PM TAG AND LABEL CUTTER Height 157.5 cm (5' 2 ) 08/05/2023 12:15 PM TAG AND LABEL CUTTER Body Mass Index 28.91 08/05/2023 12:15 PM TAG AND LABEL CUTTER Plan of Treatment Health Maintenance Due Date [...] Completed 06/22/2010 Medical Devices Implanted Type Area Accountant Property Device Identifier Shelf Expiration Date Model / Serial / Lot [employer] Masood Contour 6fr 26cm Large Inner Lumen Low Profile Bladder Shane Taper Latex Free 180-223 - [id number] Implanted:Qty: 1 on 08/05/2023 by Ismael Vanegas MD at [facility] Stent Right: Ureter [employer] Masood 04/01/2026 [id number] / / [id number] Insurance MEDICARE ID[place] MEDICARE IDPA MEDICARE [place]PA Advance Directives For more information, please contact: [phone] * Full Code (Latest Code Status on File) Date Activated Date Inactivated Comments 08/05/2023 8:31 PM 08/07/2023 7:47 PM Care Teams Frame Hand Relationship Specialty Start Date End Date Neil Barbour MD [address] [address] PCP - General Gastroenterology 03/27/23 [place] [address] [place] [address] Consulting Physician Urology 08/07/23
--- OUTSIDE RECORDS SUMMARY | 2024-12-08 11:14 | XMS_ITS ---
Author Organization [facility] Address [address] [place] [address] Care Team Providers Care Medical Reimbursement Manager Name Role Phone Juanis Watson Primary Care [...] W/U Status Risk Notes Problem Anxiety state ([id number]) Anxiety disorder, unspecified type (F41.9) 10/20/2024 Active confirmed Encounters Encounter Location Date Provider Diagnosis [address], [place] [address] 10/20/2024 Reginaamber MayerWatson Mood disorder F39 ; [...] follow-up over phone and is located in [place]. Previously seen on 09/03/2024 and during this [...] or be administered own oral medications per [place] protocols. Provided informed consent with understanding of [...] follow-up over phone and is located in [place]. Previously seen on 09/03/2024 and during this [...] or be administered own oral medications per [place] protocols. Provided informed consent with understanding of side effects, adverse effects, risks and benefits as well as alternative treatments as previously discussed and with the above recommended medications & other aspects of the treatment program. Agrees to return sooner if symptoms worsen or suicidal or homicidal ideations occur. Next Appt Details Follow Up: 6 Weeks, Reason: med f/u Provider Name:Juanis louis, 12/08/2024 01:00:00 PM, [address], [address], Progress Notes * Anu ANGUIANOMarinB: 6 (59 yo F)Acc No.[id number]:10/20/2024 Patient: Mahnaz OWENS Provider: SANAZ RuanoHNP :1965 A ge:59 Y S ex:Female Date:10/20/2024 Address:[address] [place], [place] [id number] Pcp:Chanda Reynolds Subjective: * Chief Complaints: * [...] Depression P rescribed psychotropic medications S creening: [place] Suicide Severity Rating Scale (LF) D o [...] History: * Surgical History: b ack surgery 1999hysterectomy 2001foot surgery * Hospitalization/Major Diagno stic Procedure: b ack surgery 1999hysterectomy 2000foot surgery sychiatric inpatient for I over dosed , [facility] for 3 days Sepsychiatric inpatient for OD on medicines for trying to get high Julsychiatric inpatient in [place], not taking my medication 1996 * Family History: F ather: . M other: alive, kidney failure .complications from surgeries.. S iblings: . 1 brother(s) . . Brother from suicide in 1996 Grandmother passed in 1996. * Social History: P [facility] Social History: L iving Arrangement L iving [...] follow-up over phone and is located in [place]. Previously seenon 09/03/2024 and during this appt [...] or be administered own oral medications per [place] protocols. Provided informed consent with understanding of [...] 6 Weeks (Reason: med f/u) * * SIOLOGY INTERNSHIP Sign off status: Completed true * Provider: Cynthia Watson, PMHNP Date: 0 10/20/2024 Generated for Vanessa zendejas/Shazia/Alejandra on: 0 12/08/2024 11:13 AM CDT History and Physical Notes * HPI [...] Poor appetite or overeating: More than h group home the days Feeling bad about yourself o [...] stop Cogentin and she is agreeable. Screening [place] Suicide Sev erity Rating Scale (LF) Do [...]
--- OUTSIDE RECORDS SUMMARY | 2024-12-08 11:14 | XMS_ITS | CONTINUITY OF CARE DOCUMENT ---
Author Name supriya epps Address Unknown Organization [facility] Address [address] [place] [address] [address] [place] [address] Phone [phone] Care Team Providers Care Cocoa Bean Roaster Helper Name Role Phone LEV SUERO, PATRICIA Unavailable [phone] INSURANCE PROVIDERS Payer name Policy type / Coverage type Reagan red constitution party ID [employer] AND FAMILY [employer] Medicaid 1 [id number] [place] MEDICARE Medicare [id number]
--- OUTSIDE RECORDS SUMMARY | 2024-12-08 11:14 | XMS_ITS | Referral Summary ---
Author Organization [facility] [place] [address] Address [address] [place] [address] Care Team Providers Care Cobol Developer Name Role Phone Neil Barbour MD Primary Care Provider Ismael Vanegas MD Unavailable [phone] Allergies Active Allergy Reactions Criticality Noted [...] Medium 10/19/2012 unk Lidocaine Unknown 10/19/2012 unk Kpptljsl-Uvvzdisgwu-Rjzrm yxin Olanzapine Anaphylaxis High 10/19/2012 unk Oxycodone [...] Day Cigarettes 1 48 Smokeless Tobacco: Never [facility] Utilities Answer Date Recorded In the past 12 months has [employer], [employer], oil, or water [employer] threatened to shut off services in your [...] often do you attend chur ch or pentecostalism services? Never 08/07/2023 Do you belong to any clubs o r organizations such as taoist groups, unions, fraternal or athletic groups, or [...] on file Legal Sex Female 4:20 PM CARDIAC TECHNICIAN Gender Identity Not on file Sexual Orientation Not on file Last Filed Vital Signs Vital Sign Reading Time Taken Comments Blood Pressure 109/63 08/07/2023 3:31 PM CARDIAC TECHNICIAN Pulse 101 08/07/2023 3:31 PM CARDIAC TECHNICIAN Temperature 36.9 C (98.5 F) 08/07/2023 3:31 PM CARDIAC TECHNICIAN Respiratory Rate 18 08/07/2023 3:31 PM CARDIAC TECHNICIAN Oxygen Saturation 98% 08/07/2023 3:31 PM CARDIAC TECHNICIAN Inhaled Oxygen Concentration - - Weight 71.7 kg (158 lb 1.1 oz) 08/05/2023 12:15 PM CARDIAC TECHNICIAN Height 157.5 cm (5' 2 ) 08/05/2023 12:15 PM CARDIAC TECHNICIAN Body Mass Index 28.91 08/05/2023 12:15 PM CARDIAC TECHNICIAN Plan of Treatment Not on file Medical Devices Implanted Type Area Computer Education Teacher Device Identifier Shelf Expiration Date Model / Serial / Lot [employer] Masood Contour 6fr 26cm Large Inner Lumen Low Profile Bladder Shane [employer] Latex Free 180-223 - [id number] Implanted:Qty: 1 on 08/05/2023 by Ismael Vanegas MD at [facility] Stent Right: Ureter [employer] Masood 04/01/2026 [id number] / / [id number] Insurance MEDICARE IDPA MEDICARE [place]PA MEDICARE [facility] Address: [address] [address] [place] [address] IDPA Advance Directives For more information, please contact: [phone] * Full Code (Latest Code Status on File) Date Activated Date Inactivated Comments 08/05/2023 8:31 PM 08/07/2023 7:47 PM Care Teams Cobol Developer Relationship Specialty Start Date End Date Neil Barbour MD [address] [place] [address] PCP - General Gastroenterology 03/27/23 [place] [address] [place] [address] Consulting Physician Urology 08/07/23
== END 2024-12-08 10:13 | disposition home or self-care (01) ==
PROVIDERS: PCP Internal Medicine Gastroenterology; Visit Provider Internal Medicine Gastroenterology
DX: M16.11 Unilateral primary osteoarthritis, right hip (principal)
CPT/HCPCS: 73502

== ENCOUNTER 2025-01-30 18:01 | Inpatient (IN) | payer MEDICARE, MEDICAID, SELFPAY ==
[2025-01-30] VITALS (9 sets, daily range): BP systolic 115–147; BP diastolic 72–99; PULSE 86–102; RESP 12–22; TEMP 36.7; O2SAT 95–99
--- NOTE | ~2025-01-30 | CT_ITS ---
CLINICAL INDICATION: Unresponsive. Unknown mechanism of trauma. COMPARISON: 08/11/2023 TECHNIQUE: An enhanced CT of the abdomen and pelvis was performed utilizing multislice spiral [employer] ue reconstructed at 5 mm slice thickness. Coronal and sagittal reconstructions were performed. This CT examination was performed utilizing dose reduction techniques. DLP: 1451 mGy-cm FINDINGS/OBSERVATIONS: Lung: Bibasilar atelectasis. The remainder of the lungs are clear. The heart is enlarged, without pericardial effusion. Mediastinum: No pathologically enlarged or morphologically suspicious lymph nodes are identified within the medias tinum, bilateral axilla, within the soft tissues of the anterior chest wall. Soft tissues of the chest: Unremarkable. Bones of the chest: No acute fracture. No lytic or blastic lesions are identified. Liver: The liver enhances homogeneously and is not enlarged. Gallbladder and biliary system: The gallbladder is enlarged and fluid-filled with trace surrounding inflammatory change. The common bile duct measures 7 mm, for which follow-up ultrasound is suggested. Pancreas: The pancreas enhances homogeneously, without ductal dilatation. Spleen: The spleen enhances homogeneously and is not enlarged. Kidneys: Bilateral hydroureteronephrosis without an obstructing stone visualized. No renal calculi are present . Adrenal glands: Unremarkable. Gastrointestinal tract: Small hiatal hernia is present. Fecal stasis within the colon Appendix: The air-filled appendix is of normal caliber (axial series, images 158 through 178). Vasculature: No calcified atherosclerotic disease is present. No aneurysmal dilatation. Lymph nodes: Scattered nonpathologically enlarged lymph nodes within the root of the mesentery and deep in the pel vis. Pelvic structures: The bladder is distended with a large bladder diverticulum, to the right of midline. The uterus is either surgically absent or atrophic. Body wall and musculoskeletal: Small fat-containing umbilical hernia. Age advanced degenerative disease within the lumbosacral spine most severe at the level of L5/S1 with osteophyte formation, disc space narrowing, endplate changes, vacuum phenomena and facet hypertrophy . IMPRESSION: No hollow or solid visceral organ injury. Moderate gallbladder distention with prominence of the common bile duct for which follow-up ultrasoun d is suggested. Bilateral hydroureteronephrosis without an obstructing stone visualized. Moderate bladder distention. Reviewed, dictated and finalized at location A. IMPRESSION: No hollow or solid visceral organ injury. Moderate gallbladder distention with prominence of the common bile duct for whi ch follow-up ultrasound is suggested. Bilateral hydroureteronephrosis without an obstructing stone visualized. Moderate bladder distention.
--- NOTE | ~2025-01-30 | CT_ITS ---
History: PROCEDURE: CT head without contrast. COMPARISON: None 05/24/2023 TECHNIQUE: Axial imaging of the head performed from the skull base to the vertex without IV contrast. Sagittal a nd coronal reformations obtained. Examination is limited by motion artifact DLP: 2270 mGy-cm FINDINGS: The ventricles are unremarkable in size, shape and position. There is no large mass, mass effect or significant midline shift. There is no abnormal extra-axial fluid collection or large intracranial hemorrhage. Visualized paranasal sinuses are clear. The mastoid air cells are well aerated. No large acute displaced fractures within the overlying cranium. Impression: No large acute intracranial hemorrhage or suspicious significant mass effect. Reviewed, dictated and finalized at location A. Impression: No large acute intracranial hemorrhage or suspicious significant mass effect.
--- NOTE | ~2025-01-30 | CT_ITS ---
History: Unresponsive. Unknown mechanism of trauma PROCEDURE: CT cervical spine without intravenous contrast. COMPARISON: None TECHNIQUE: Multiple contiguous axial images of the cervical spine were performed without the administration of i ntravenous contrast. DLP: 437 mGy-cm FINDINGS: Straightening and slight reversal of the normal curvature of the cervical spine is identified, likely muscular in origin. Significant degenerative disease is present with osteophyte formation, disc space narrowing, endplate changes and vacuum phenomena most prominent at the level of C5/C6 and C6/C7. No acute fractures are present. The bilateral lung apices demonstrate biapical bleb formation. No soft tissue abnormality is present. The airway is patent. Impression: Straightening and slight reversal of the normal curvature of the cervical spine, likely muscular in o rigin. Degenerative disease, without acute fracture. Reviewed, dictated and finalized at location A. Impression: Straightening and slight reversal of the normal curvature of the cervical spine , likely muscular in origin. Degenerative disease, without acute fracture.
--- NOTE | ~2025-01-30 | XR_ITS ---
CHEST RADIOGRAPH CLINICAL HISTORY: ALTERED . COMPARISON: 08/19/2023 TECHNIQUE: Single portable view of the chest. FINDINGS The cardiomediastinal silhouette is unremarkable. Left-sided pleural effusion. The lungs are otherwise clear. IMPRESSION: Left-sided pleural effusion without focal infiltrate. Reviewed, dictated and finalized at location A.
--- NOTE | 2025-01-30 18:20 | ED.AMS ---
HPI - Altered Mental Status General Chief Complaint: Altered Mental Status <Dimitri Wolfe MD - Last Filed: 01/30/25 20:53> Stated Complaint: altered <Dimitri Wolfe MD - Last Filed: 01/30/25 20:53> Time Seen by Provider: 01/30/25 18:18 <Dimitri Wolfe MD - Last Filed: 01/30/25 20:53> Source: patient and EMS <Dimitri Wolfe MD - Last Filed: 01/30/25 20:53> Mode of arrival: EMS <Dimitri Wolfe MD - Last Filed: 01/30/25 20:53> History of Present Illness HPI narrative: 59 YEARS OLD WHITE FEMALE CAME TO THE ED BY AMBULANCE. HER MOM FOUND HER UNRESPONSIVE UNDER THE BED. EMT REPORTED THAT PATIENT WAS RESPONSIVE WHEN THEY ARRIVED THERE. CURRENTLY AWAKE, ORIENTED TO HER NAME ONLY. BASELINE AWAKE ALERT ORIENTED X4. EMT REPORTED THAT PATIENT HAVE HISTORY OF SUBSTANCE ABUSE, ON EMPTY HYDROCODONE BOTTLE LAST FILLED ON JANUARY 25, 2025 WITH 80 PILLS WAS EMPTY.. UNKNOWN IF SHE CONSUMED ANY OF THE PILLS TODAY OR OVER THE LAST FEW DAYS. ON ARRIVAL TO THE ED PATIENT WAS AGITATED REPEATED THE YELLING OW. <Dimitri Wolfe MD - Last Filed: 01/30/25 20:53> Related Data Home Medications: Home Medications ?Medication ?Instructions ?Recorded ?Confirmed ?Last Taken ?Type benztropine 2 mg tablet 2 mg PO BID PRN involuntary 04/18/22 01/31/25 Unknown History movement prazosin 5 mg capsule 10 mg PO HS 04/18/22 01/31/25 Unknown History chlorpromazine 100 mg tablet 100 mg PO HS 03/27/23 01/31/25 Unknown History gabapentin 300 mg capsule 300 mg PO TID 05/25/23 01/31/25 Unknown History [id number] 1 tablet PO Q8H PRN Headache 07/26/24 01/31/25 07/24/24 History 50 mg-325 mg-40 mg tablet cyclobenzaprine 10 mg tablet 10 mg PO HS 07/26/24 01/31/25 Unknown History benztropine 1 mg tablet 1 mg PO BID 01/31/25 01/31/25 Unknown History buspirone 30 mg tablet 30 mg PO BID 01/31/25 01/31/25 Unknown History chlorpromazine 25 mg tablet 25 mg PO DAILY 01/31/25 01/31/25 Unknown History hydrocodone 5 mg-acetaminophen 325 1 tablet PO TID PRN pain 01/31/25 01/31/25 Unknown History mg tablet ondansetron 4 mg disintegrating 4 mg translingual TID PRN nausea 01/31/25 01/31/25 Unknown History tablet and vomiting potassium chloride 20 mEq 20 meq PO DAILY 01/31/25 01/31/25 Unknown History tablet,extended release sertraline 100 mg tablet 100 mg PO BID 01/31/25 01/31/25 Unknown History <Dimitri Wolfe MD - Last Filed: 01/30/25 20:53> Allergies/Adverse Reactions: Allergies Allergy/AdvReac Type Severity Reaction Status Date / Time grass pollen Allergy Intermediate Hives Verified 11/15/24 13:39 amoxicillin (From Augmentin) Allergy Hives Verified 11/15/24 13:39 asenapine (From Saphris) Allergy Hives Verified 11/15/24 13:39 bacitracin (From Neosporin Allergy Rash Verified 11/15/24 13:39 ([id number])) clavulanic acid (From Allergy Hives Verified 11/15/24 13:39 Augmentin) erythromycin base Allergy Hives Verified 11/15/24 13:39 latex Allergy Rash Verified 11/15/24 13:39 neomycin (From Neosporin Allergy Rash Verified 11/15/24 13:39 ([id number])) polymyxin B (From Neosporin Allergy Rash Verified 11/15/24 13:39 ([id number])) risperidone (From Risperdal) Allergy Hives Verified 11/15/24 13:39 tramadol (From Ultram) Allergy Rash Verified 11/15/24 13:39 ciprofloxacin AdvReac Vomiting Verified 11/15/24 13:39 ibuprofen AdvReac Vomiting Verified 11/15/24 13:39 Steriod AdvReac Agitated Uncoded 11/15/24 13:39 <Dimitri Wolfe MD - Last Filed: 01/30/25 20:53> Review of Systems Review of Systems: ROS unobtainable: Yes unobtainable due to medical condition <Dimitri Wolfe MD - Last Filed: 01/30/25 20:53> [facility] Past Medical History Medical History: Medical History Bipolar mood disorder Methamphetamine use GERD (gastroesophageal reflux disease) Major depression with psychotic features Carpal tunnel syndrome of right wrist Carcinoma of right ureter SVT (supraventricular tachycardia) Hepatitis C Alcohol abuse Schizoaffective disorder [place] toxicity Due to overdose/suicide attempt Requiring temporary dialysis Tobacco dependence Chronic obstructive pulmonary disease Distal radial fracture December 2022 Ankle fracture, lateral malleolus, closed December 2022 Seizure Migraine Anxiety Suicide attempt Multiple hospitalizations for suicide attempt with history of cutting <Dimitri Wolfe MD - Last Filed: 01/30/25 20:53> Surgical History Surgical History: Surgical History History of right salpingo-oophorectomy Due to ectopic Status post lumbar discectomy (~1999) L5-S1 Status post open reduction with internal fixation of fracture Cervical spine fracture History of ureterostomy History of kidney surgery H/O dilation and curettage H/O tubal ligation History of tonsillectomy H/O foot surgery 2021 X2 H/O: hysterectomy 2000 hysterectomy with left oophorectomy <Dimitri Wolfe MD - Last Filed: 01/30/25 20:53> Family History Family History: Family History Father Alcoholism Grandparent Diabetes mellitus Hypertension Heart disease Mother Kidney disease Grandparent Alcoholism <Dimitri Wolfe MD - Last Filed: 01/30/25 20:53> Social History Social History: Social History Social History: Surrogate medical decision maker: Landy Silva, mother. Code status: Full code. Smoking packs per day: 1.5 Smoking cigarettes per day: 30.0 Years smoked: 45 Smoking pack-years: 67.50 Smoking status: Current every day smoker Tobacco type: cigarettes Second hand tobacco smoke exposure: No Alcohol intake: unknown Substance use: current Substance use type: painkillers and prescription drug Other substance usage details: Fioricet and Maynard Last use: 01/30/2025 Lack of Transportation: No Lack of Food: Never True Current Housing: I Have Housing Concerned About Future Housing: No Difficulty Paying Gas/Electric Bills: No Difficulty Paying for Meds: No Currently Unemployed: No Education: High School Diploma/GED Difficulty w/ Childcare or Family Care: No Living arrangements: with family Additional living arrangements comments: Lives with mother in [place]. Occupation/Education: unemployed Additional occupation/education comments: Disabled. Spiritual care concerns: No <Dimitri Wolfe MD - Last Filed: 01/30/25 20:53> Exam Narrative: GENERAL APPEARANCE: WELL-DEVELOPED, WELL-NOURISHED, AGITATED, RESTLESS SKIN: NORMAL COLOR HEAD: NORMOCEPHALIC, NONTRAUMATIC EYES: CLEAR CONJUNCTIVA ENT: DRY ORAL CAVITY NECK: C-COLLAR ON CHEST AND RESPIRATORY: AIRWAY PATENT, NO RESPIRATORY DISTRESS, NO ACCESSORY MUSCLE USE HEART: TACHYCARDIA ABDOMEN: SOFT, NONTENDER, NO ORGANOMEGALY, QUIET BOWEL SOUNDS MUSCULOSKELETAL: NORMAL RANGE OF MOTION, NONTENDER BACK NEUROLOGIC: ALERT AND ORIENTED TO HER NAME ONLY <Dimitri Wolfe MD - Last Filed: 01/30/25 20:53> Course Consultations Consultation #1: PATIENT CARE TURNED OVER TO DR. CHEN AT SHIFT CHANGE, AWAITING LABS, IMAGING, DISPOSITION. PATIENT BEEN RESTLESS, RECEIVED 2 MG ATIVAN IV BECAUSE OF AGITATION AND RESTLESSNESS. <Dimitri Wolfe MD - Last Filed: 01/30/25 20:53> Date: 01/30/25 <Dimitri Wolfe MD - Last Filed: 01/30/25 20:53> Vital Signs Vital signs: Vital Signs Temperature 98.1 F 01/30/25 18:29 Pulse Rate 86 01/30/25 18:29 Respiratory Rate 22 H 01/30/25 18:29 Blood Pressure 115/74 01/30/25 18:29 Pulse Oximetry 99 01/30/25 18:29 Temperature 98.9 F 01/31/25 08:00 Pulse Rate 73 01/31/25 08:39 Respiratory Rate 23 H 01/31/25 08:39 Blood Pressure 113/63 01/31/25 08:00 Pulse Oximetry 98 01/31/25 08:00 Oxygen Delivery Room Air 01/31/25 08:00 <Dimitri Wolfe MD - Last Filed: 01/30/25 20:53> Vital Signs Temperature 98.1 F 01/30/25 18:29 Pulse Rate 86 01/30/25 18:29 Respiratory Rate 22 H 01/30/25 18:29 Blood Pressure 115/74 01/30/25 18:29 Pulse Oximetry 99 01/30/25 18:29 Temperature 98.9 F 01/31/25 08:00 Pulse Rate 73 01/31/25 08:39 Respiratory Rate 23 H 01/31/25 08:39 Blood Pressure 113/63 01/31/25 08:00 Pulse Oximetry 98 01/31/25 08:00 Oxygen Delivery Room Air 01/31/25 08:00 <Twyla Chen MD - Last Filed: 01/31/25 09:57> MDM - Altered Mental Status MDM Narrative Medical decision making narrative: Patient signed out to me pending rest of work up. She remains altered. Patient to be given Benzodiazepines, Valium was recommended by Poison Control who do recommend starting NAC. 4 hour AST slightly elevated from previous. Four hour ALT is essentially unchanged. Poison Control does update nurse after the 4 hour praneeth that they are requesting repeat AST and ALT be obtained prior to NAC bag #3 being ordered and titration as their recommendations if necessary. Patient requires multiple rounds of various medications to try to attempt obtaining CT imaging. She is restless and unable to lay still to facilitate this workup. Discussed patient in anticipation of admission with hospitalist Dr Go. Requesting lactic acid and CPK. Patient had successfully been able to obtain brain study but will still require additional images due to infected urine and PMH with comorbidities. She continues to be moving and not able to lay still to facilitate studies. Risks versus benefits of intubating and paralyzing were weighed against attempting other means in order to facilitate obtaining rest of work up. Precedex bolus given. Elevated CPK. Additional 1 L fluid bolus ordered. Patient's bladder scan >600; Rich catheter ordered. CT as below. Discussed with sheet metal mechanic Dr Gay who accepts admission to ICU. Hospitlist Dr Go recommending Precedex gtt given how restless she remains, unable to be re-directed and a fall risk as a result. <Twyla Chen MD - Last Filed: 01/31/25 09:57> Differential Diagnosis Differential diagnosis: Likely alcoholic intoxication, altered mental status, delirium, hypoglycemia, hyponatremia, subarachnoid hemorrhage and other (drug use/overdose (unclear intentional/unintentional)) <Twyla Chen MD - Last Filed: 01/31/25 09:57> Lab Data Attestation: I reviewed the patient's lab results. <Twyla Chen MD - Last Filed: 01/31/25 09:57> Result diagrams: 01/31/25 09:03 01/31/25 09:03 <Dimitri Wolfe MD - Last Filed: 01/30/25 20:53> Labs: Lab Results 01/30/25 01/30/25 01/30/25 Range/Units 18:34 18:35 18:59 WBC 8.6 (4.5-10.0) K/mm3 RBC 3.67 L (4.2-5.4) M/mm3 Hgb 13.6 (12.0-15.0) g/dL Hct 40.9 (37.0-47.0) % MCV 111.4 H (80-100) fl MCH 37.1 H (26-34) pg MCHC 33.3 (32-36) g/dl RDW 14.1 (11.5-14.5) % Plt Count 323 (150-375) k/mm3 MPV 9.1 (7.4-10.4) fl Immature Gran % (Auto) 0.5 (0-0.5) % Neut % (Auto) 72.1 (45.5-73.1) % Lymph % (Auto) 14.2 L (18.3-44.2) % [place] % (Auto) 11.8 H (2.6-8.5) % Eos % (Auto) 0.9 (0-4.4) % Baso % (Auto) 0.5 (0.2-1.2) % Lymph # (Auto) 1.22 (0.9-3.2) K/mm3 [place] # (Auto) 1.0 H (0.1-0.6) K/mm3 Eos # (Auto) 0.1 (0-0.3) K/mm3 Baso # (Auto) 0.0 (0.0-0.1) K/mm3 Abs Immat Gran (auto) 0.04 H (0.00-0.031) K/mm3 Absolute Neuts (auto) 6.2 (1.3-6.7) K/mm3 Absolute Nucleated RBC 0.000 (0.0-0.012) K/mm3 Band Neutrophils % 0 (0-6) % Nucleated RBC % 0.0 (0.0-0.2) % Platelet Estimate Adequate (Adequate) Macrocytosis 1+ (NORMAL) Schistocytes None seen PT 12.9 (11.1-14.7) Seconds INR 0.9 APTT 28.0 (22.3-36.8) Seconds Sodium 139 (137-145) mmol/L Potassium 3.1 L (3.4-5.0) mmol/L Chloride 107 (98-107) mmol/L Carbon Dioxide 23 (22-30) mmol/L Anion Gap 9 (4-12) mmol/L BUN 12 (7-17) mg/dL Creatinine 0.62 L (0.7-1.0) mg/dL Estim Creat Clear Calc Not Reportable Estimated GFR > 60 (59 - ) Glucose 134 H (65-110) mg/dL Lactic Acid (0.7-2.0) mmol/L Calcium 8.9 (8.4-10.2) mg/dL Magnesium 2.0 (1.6-2.3) mg/dL Total Bilirubin 1.0 (0.2-1.3) mg/dL AST 60 H (14-36) U/L ALT 39 H (6-35) U/L Alkaline Phosphatase 103 (38-126) U/L Ammonia < 9 L (9-30) umol/L Total Creatine Kinase 114 (30-135) U/L Troponin I 0.017 (0.000-0.034) ng/mL Total Protein 8.0 (6.3-8.2) g/dL Albumin 4.3 (3.5-5.1) g/dL TSH 1.380 (0.465-4.680) uIU/mL Urine Color Yellow (Yellow) Urine Appearance Cloudy H (Clear) Urine pH 5.0 (5.0-9.0) Ur Specific [place] 1.029 (1.001-1.035) Urine Protein 1+ H (Negative) mg/dL Urine Glucose (UA) Negative (Negative) mg/dL Urine Ketones Trace H (Negative) mg/dL Ur Blood (Man) Negative (Negative) Urine Nitrate Negative (Negative) Urine Bilirubin Negative (Negative) Urine Urobilinogen 1.0 (<2.0) mg/dL Add Ur Microanalysis Reviewed Leukocyte Esterase Rfl 2+ H (Negative) ROCHELLE/UL Urine RBC 6-10 H (0-2) /hpf Urine WBC >100 H (0-3) /hpf Ur Squamous Epith Cells None seen (Few) /hpf Urine Bacteria 4+ H /hpf Urine Casts 6-10 Salicylates < 1.0 L (2-20) mg/dL Urine Opiates Screen Positive A (Negative) Urine Methadone Screen Negative (Negative) Acetaminophen 72 H (10-30) ug/mL Ur Barbiturates Screen Positive A (Negative) Ur Phencyclidine Scrn Negative (Negative) Ur Amphetamine Screen Negative (Negative) U Benzodiazepines Scrn Negative (Negative) Urine Cocaine Screen Negative (Negative) U Cannabinoids Screen Negative (Negative) Ethyl Alcohol < 10 (<10) mg/dL 01/30/25 01/30/25 01/31/25 Range/Units 22:16 23:41 03:13 WBC (4.5-10.0) K/mm3 RBC (4.2-5.4) M/mm3 Hgb (12.0-15.0) g/dL Hct (37.0-47.0) % MCV (80-100) fl MCH (26-34) pg MCHC (32-36) g/dl RDW (11.5-14.5) % Plt Count (150-375) k/mm3 MPV (7.4-10.4) fl Immature Gran % (Auto) (0-0.5) % Neut % (Auto) (45.5-73.1) % Lymph % (Auto) (18.3-44.2) % [place] % (Auto) (2.6-8.5) % Eos % (Auto) (0-4.4) % Baso % (Auto) (0.2-1.2) % Lymph # (Auto) (0.9-3.2) K/mm3 [place] # (Auto) (0.1-0.6) K/mm3 Eos # (Auto) (0-0.3) K/mm3 Baso # (Auto) (0.0-0.1) K/mm3 Abs Immat Gran (auto) (0.00-0.031) K/mm3 Absolute Neuts (auto) (1.3-6.7) K/mm3 Absolute Nucleated RBC (0.0-0.012) K/mm3 Band Neutrophils % (0-6) % Nucleated RBC % (0.0-0.2) % Platelet Estimate (Adequate) Macrocytosis (NORMAL) Schistocytes PT 13.1 (11.1-14.7) Seconds INR 0.9 APTT (22.3-36.8) Seconds Sodium (137-145) mmol/L Potassium (3.4-5.0) mmol/L Chloride (98-107) mmol/L Carbon Dioxide (22-30) mmol/L Anion Gap (4-12) mmol/L BUN (7-17) mg/dL Creatinine (0.7-1.0) mg/dL Estim Creat Clear Calc Estimated GFR (59 - ) Glucose (65-110) mg/dL Lactic Acid 1.6 (0.7-2.0) mmol/L Calcium (8.4-10.2) mg/dL Magnesium (1.6-2.3) mg/dL Total Bilirubin 0.9 (0.2-1.3) mg/dL AST 70 H 48 H 64 H (14-36) U/L ALT 38 H 36 H 36 H (6-35) U/L Alkaline Phosphatase 95 (38-126) U/L Ammonia (9-30) umol/L Total Creatine Kinase 874 H (30-135) U/L Troponin I (0.000-0.034) ng/mL Total Protein (6.3-8.2) g/dL Albumin (3.5-5.1) g/dL TSH (0.465-4.680) uIU/mL Urine Color (Yellow) Urine Appearance (Clear) Urine pH (5.0-9.0) Ur Specific [place] (1.001-1.035) Urine Protein (Negative) mg/dL Urine Glucose (UA) (Negative) mg/dL Urine Ketones (Negative) mg/dL Ur Blood (Man) (Negative) Urine Nitrate (Negative) Urine Bilirubin (Negative) Urine Urobilinogen (<2.0) mg/dL Add Ur Microanalysis Leukocyte Esterase Rfl (Negative) ROCHELLE/UL Urine RBC (0-2) /hpf Urine WBC (0-3) /hpf Ur Squamous Epith Cells (Few) /hpf Urine Bacteria /hpf Urine Casts Salicylates < 1.0 L (2-20) mg/dL Urine Opiates Screen (Negative) Urine Methadone Screen (Negative) Acetaminophen < 10 L (10-30) ug/mL Ur Barbiturates Screen (Negative) Ur Phencyclidine Scrn (Negative) Ur Amphetamine Screen (Negative) U Benzodiazepines Scrn (Negative) Urine Cocaine Screen (Negative) U Cannabinoids Screen (Negative) Ethyl Alcohol (<10) mg/dL <Dimitri Wolfe MD - Last Filed: 01/30/25 20:53> Lab Results 01/30/25 01/30/25 01/30/25 Range/Units 18:34 18:35 18:59 WBC 8.6 (4.5-10.0) K/mm3 RBC 3.67 L (4.2-5.4) M/mm3 Hgb 13.6 (12.0-15.0) g/dL Hct 40.9 (37.0-47.0) % MCV 111.4 H (80-100) fl MCH 37.1 H (26-34) pg MCHC 33.3 (32-36) g/dl RDW 14.1 (11.5-14.5) % Plt Count 323 (150-375) k/mm3 MPV 9.1 (7.4-10.4) fl Immature Gran % (Auto) 0.5 (0-0.5) % Neut % (Auto) 72.1 (45.5-73.1) % Lymph % (Auto) 14.2 L (18.3-44.2) % [place] % (Auto) 11.8 H (2.6-8.5) % Eos % (Auto) 0.9 (0-4.4) % Baso % (Auto) 0.5 (0.2-1.2) % Lymph # (Auto) 1.22 (0.9-3.2) K/mm3 [place] # (Auto) 1.0 H (0.1-0.6) K/mm3 Eos # (Auto) 0.1 (0-0.3) K/mm3 Baso # (Auto) 0.0 (0.0-0.1) K/mm3 Abs Immat Gran (auto) 0.04 H (0.00-0.031) K/mm3 Absolute Neuts (auto) 6.2 (1.3-6.7) K/mm3 Absolute Nucleated RBC 0.000 (0.0-0.012) K/mm3 Band Neutrophils % 0 (0-6) % Nucleated RBC % 0.0 (0.0-0.2) % Platelet Estimate Adequate (Adequate) Macrocytosis 1+ (NORMAL) Schistocytes None seen PT 12.9 (11.1-14.7) Seconds INR 0.9 APTT 28.0 (22.3-36.8) Seconds Sodium 139 (137-145) mmol/L Potassium 3.1 L (3.4-5.0) mmol/L Chloride 107 (98-107) mmol/L Carbon Dioxide 23 (22-30) mmol/L Anion Gap 9 (4-12) mmol/L BUN 12 (7-17) mg/dL Creatinine 0.62 L (0.7-1.0) mg/dL Estim Creat Clear Calc Not Reportable Estimated GFR > 60 (59 - ) Glucose 134 H (65-110) mg/dL Lactic Acid (0.7-2.0) mmol/L Calcium 8.9 (8.4-10.2) mg/dL Magnesium 2.0 (1.6-2.3) mg/dL Total Bilirubin 1.0 (0.2-1.3) mg/dL AST 60 H (14-36) U/L ALT 39 H (6-35) U/L Alkaline Phosphatase 103 (38-126) U/L Ammonia < 9 L (9-30) umol/L Total Creatine Kinase 114 (30-135) U/L Troponin I 0.017 (0.000-0.034) ng/mL Total Protein 8.0 (6.3-8.2) g/dL Albumin 4.3 (3.5-5.1) g/dL TSH 1.380 (0.465-4.680) uIU/mL Urine Color Yellow (Yellow) Urine Appearance Cloudy H (Clear) Urine pH 5.0 (5.0-9.0) Ur Specific [place] 1.029 (1.001-1.035) Urine Protein 1+ H (Negative) mg/dL Urine Glucose (UA) Negative (Negative) mg/dL Urine Ketones Trace H (Negative) mg/dL Ur Blood (Man) Negative (Negative) Urine Nitrate Negative (Negative) Urine Bilirubin Negative (Negative) Urine Urobilinogen 1.0 (<2.0) mg/dL Add Ur Microanalysis Reviewed Leukocyte Esterase Rfl 2+ H (Negative) ROCHELLE/UL Urine RBC 6-10 H (0-2) /hpf Urine WBC >100 H (0-3) /hpf Ur Squamous Epith Cells None seen (Few) /hpf Urine Bacteria 4+ H /hpf Urine Casts 6-10 Salicylates < 1.0 L (2-20) mg/dL Urine Opiates Screen Positive A (Negative) Urine Methadone Screen Negative (Negative) Acetaminophen 72 H (10-30) ug/mL Ur Barbiturates Screen Positive A (Negative) Ur Phencyclidine Scrn Negative (Negative) Ur Amphetamine Screen Negative (Negative) U Benzodiazepines Scrn Negative (Negative) Urine Cocaine Screen Negative (Negative) U Cannabinoids Screen Negative (Negative) Ethyl Alcohol < 10 (<10) mg/dL 01/30/25 01/30/25 01/31/25 Range/Units 22:16 23:41 03:13 WBC (4.5-10.0) K/mm3 RBC (4.2-5.4) M/mm3 Hgb (12.0-15.0) g/dL Hct (37.0-47.0) % MCV (80-100) fl MCH (26-34) pg MCHC (32-36) g/dl RDW (11.5-14.5) % Plt Count (150-375) k/mm3 MPV (7.4-10.4) fl Immature Gran % (Auto) (0-0.5) % Neut % (Auto) (45.5-73.1) % Lymph % (Auto) (18.3-44.2) % [place] % (Auto) (2.6-8.5) % Eos % (Auto) (0-4.4) % Baso % (Auto) (0.2-1.2) % Lymph # (Auto) (0.9-3.2) K/mm3 [place] # (Auto) (0.1-0.6) K/mm3 Eos # (Auto) (0-0.3) K/mm3 Baso # (Auto) (0.0-0.1) K/mm3 Abs Immat Gran (auto) (0.00-0.031) K/mm3 Absolute Neuts (auto) (1.3-6.7) K/mm3 Absolute Nucleated RBC (0.0-0.012) K/mm3 Band Neutrophils % (0-6) % Nucleated RBC % (0.0-0.2) % Platelet Estimate (Adequate) Macrocytosis (NORMAL) Schistocytes PT 13.1 (11.1-14.7) Seconds INR 0.9 APTT (22.3-36.8) Seconds Sodium (137-145) mmol/L Potassium (3.4-5.0) mmol/L Chloride (98-107) mmol/L Carbon Dioxide (22-30) mmol/L Anion Gap (4-12) mmol/L BUN (7-17) mg/dL Creatinine (0.7-1.0) mg/dL Estim Creat Clear Calc Estimated GFR (59 - ) Glucose (65-110) mg/dL Lactic Acid 1.6 (0.7-2.0) mmol/L Calcium (8.4-10.2) mg/dL Magnesium (1.6-2.3) mg/dL Total Bilirubin 0.9 (0.2-1.3) mg/dL AST 70 H 48 H 64 H (14-36) U/L ALT 38 H 36 H 36 H (6-35) U/L Alkaline Phosphatase 95 (38-126) U/L Ammonia (9-30) umol/L Total Creatine Kinase 874 H (30-135) U/L Troponin I (0.000-0.034) ng/mL Total Protein (6.3-8.2) g/dL Albumin (3.5-5.1) g/dL TSH (0.465-4.680) uIU/mL Urine Color (Yellow) Urine Appearance (Clear) Urine pH (5.0-9.0) Ur Specific [place] (1.001-1.035) Urine Protein (Negative) mg/dL Urine Glucose (UA) (Negative) mg/dL Urine Ketones (Negative) mg/dL Ur Blood (Man) (Negative) Urine Nitrate (Negative) Urine Bilirubin (Negative) Urine Urobilinogen (<2.0) mg/dL Add Ur Microanalysis Leukocyte Esterase Rfl (Negative) ROCHELLE/UL Urine RBC (0-2) /hpf Urine WBC (0-3) /hpf Ur Squamous Epith Cells (Few) /hpf Urine Bacteria /hpf Urine Casts Salicylates < 1.0 L (2-20) mg/dL Urine Opiates Screen (Negative) Urine Methadone Screen (Negative) Acetaminophen < 10 L (10-30) ug/mL Ur Barbiturates Screen (Negative) Ur Phencyclidine Scrn (Negative) Ur Amphetamine Screen (Negative) U Benzodiazepines Scrn (Negative) Urine Cocaine Screen (Negative) U Cannabinoids Screen (Negative) Ethyl Alcohol (<10) mg/dL <Twyla Chen MD - Last Filed: 01/31/25 09:57> ABG Data ABG results: 01/30/25 18:43 Puncture Site Left radial ABG pH 7.376 ABG pCO2 37.3 ABG pO2 60.7 L ABG PO2/FiO2 Ratio 2.89 ABG HCO3 21.4 L ABG O2 Saturation 90.9 L ABG O2 Content 17.5 ABG Base Excess -3.3 A-a Gradient 44.4 Oxyhemoglobin 88.4 L Total Hemoglobin 14.1 O2 Delivery Device Room air O2 Liters/Min 0.0 FiO2 21 <Dimitri Wolfe MD - Last Filed: 01/30/25 20:53> 01/30/25 18:43 Puncture Site Left radial ABG pH 7.376 ABG pCO2 37.3 ABG pO2 60.7 L ABG PO2/FiO2 Ratio 2.89 ABG HCO3 21.4 L ABG O2 Saturation 90.9 L ABG O2 Content 17.5 ABG Base Excess -3.3 A-a Gradient 44.4 Oxyhemoglobin 88.4 L Total Hemoglobin 14.1 O2 Delivery Device Room air O2 Liters/Min 0.0 FiO2 21 <Twyla Chen MD - Last Filed: 01/31/25 09:57> Imaging Data Radiologist's impression: CT Head Stat Rad: No acute intracranial hemorrhage. No midline shift or mass effect. The territorial bellamy-white matter differentiation is maintained throughout. The ventricles and sulci are commensurate with age. CT C Spine: The vertebral body heights are maintained. The craniocervical junction is intact. The atlanto dens interval is maintained. The dens is intact. There is no spondylolisthesis. Multilevel cervical spondylosis and degenerative disc disease. Straightening of the cervical lordosis. No acute fracture subluxation of the cervical spine. CT Chest with Contrast Stat Rad: Motion artifact degrades image quality limiting the exam. There is some dependent atelectasis noted. No pneumothorax is seen. The heart is enlarged. No evidence of thoracic aortic aneurysm or dissection. No incidental findings CT Abd & Pelvis With Contrast STat Rad: Artifact degrades image quality somewhat limiting the exam. No evidence of solid organ injury. No free fluid or free intraperitoneal air is noted. No evidence of abdominal aortic aneurysm or dissection. Gallbladder is markedly distended. No calcified gallstones are seen. Incidental findings: Enlarged fatty liver. There is mild bilateral hydronephrosis. No obstructing calculi are noted. Urinary bladder is distended. No bladder calculi are seen. Diverticulosis. <Twyla Chen MD - Last Filed: 01/31/25 09:57> ECG Data EKG #1: Attestation: I personally reviewed and interpreted this ECG as follows: <Twyla Chen MD - Last Filed: 01/31/25 09:57> ECG completion date: 01/30/25 <Twyla Chen MD - Last Filed: 01/31/25 09:57> ECG completion time: 22:59 <Twyla Chen MD - Last Filed: 01/31/25 09:57> Interpretation: Normal sinus rhythm at a rate of 96 beats per minute. [place] interval 160. QRS 96. QT/QTC 254/304. Notably, normal. Good R-wave progression across the precordial leads. Baseline artifact limits full interpretation. <Twyla Chen MD - Last Filed: 01/31/25 09:57> Discharge Plan Discharge Clinical Impression: Acute alteration in mental status, Urinary tract infection, Acute hypokalemia, Poly-drug misuser, Elevated CPK, Urinary retention Overdose on Tylenol Qualifiers: Encounter type: initial encounter Injury intent: undetermined intent Qualified Code(s): T39.1X4A - Poisoning by 4-Aminophenol derivatives, undetermined, initial encounter <Dimitri Wolfe MD - Last Filed: 01/30/25 20:53> Patient Disposition: Still a Patient <Dimitri Wolfe MD - Last Filed: 01/30/25 20:53> Condition: Serious <Dimitri Wolfe MD - Last Filed: 01/30/25 20:53>
--- NOTE | 2025-01-30 18:26 | ECG_ITS ---
Test Date: 2025-01-30 22:59:20 Measurements Intervals [place] Rate: 96 P: 73 SD: 160 QRS: -9 QRSD: 96 T: -6 QT: 254 QTc: 322 Interpretive Statements SINUS RHYTHM RSR' IN V1 OR V2, PROBABLY NORMAL VARIANT Compared to ECG 11/15/2024 13:52:01 NO SIGNIFICANT CHANGES Electronically Signed On 01-31-2025 10:10:40 CDT by Maximiliano Head M.D.
--- OUTSIDE RECORDS SUMMARY | 2025-01-30 18:33 | XMS_ITS | Clinical Summary ---
Author Organization [facility] Address [address] [place] [address] Care Team Providers Care Birth Certificate Clerk Name Role Phone Unavailable Primary Care Provider Unavailabl e Source Comments [facility],non-owned Affiliates and Associated Physician Practices is amultiple site organization consisting of ambulatory clinics and hospital sitesin [place], [place], [place] and [place]. This disclosure is being madepursuant to the Care Everywhere program and may not contain all information available regarding this patient. Last updated 18.[facility] Social History Tobacco Use Types Packs/Day Years Used Date Smoking Tobacco: Never Assessed Comments Unknown Sex and Gender Information Value Date Recorded Sex Assigned at Not on file Legal Sex Female 11:25 AM CDT Gender Identity Not on file Sexual Orientation [...] VACCINE ( - 2023-2 5 season) 2024 DEPRESSION SCREENING 09/09/2024 INFLUENZA VACCINE (Season Ended) 2025 HIB VACCINE Aged Out No longer eligi [...] patient's age to complete [place] [address] [place] [address] MEDICARE
--- OUTSIDE RECORDS SUMMARY | 2025-01-30 18:33 | XMS_ITS | Patient Health Record ---
Author Organization [facility] Address [address] [place] [address] Care Team Providers Care Net Mvc Developer Name Role Phone Juanis Watson Primary Care Provider [phone] Chanda Reynolds Unavailable [phone] Bea Jenkins Unavailable [phone] Allergies Allergen (clinical drug ingredient) Drug/Non Drug [...] Duration) Notes Start Date End Date Status Gabapentin 600 MG 1 tablet Orally at bedtime Active Benztropine Mesylate 0.5 MG 1 tablet as needed Orally Once a day for 8 days 12/08/2024 Active Potassium Active Cyclobenzaprine HCl 10 MG 1 tablet Orally twice a day Active Ondansetron 4 MG 1 tablet on the tongue and allow to dissolve Orally Once a day Active Prazosin HCl 5 MG 2 capsules at bedtime Orally Once a day for 8 days Blister packs Active Sertraline HCl 200 MG 1 tablet Orally Once a day for 8 days Blister packs Active Docusate Sodium Not- Taking chlorproMAZINE HCl 25 MG 1 tablet Orally in the morning for 30 days Blister packs 10/20/2024 Active busPIRone HCl 30 MG 1 tablet Orally Twice a day for 8 days Blister packs Active chlorproMAZINE HCl 100 MG 1 tablet Orally Twice a day for 8 days Blister packs Active Tamsulosin HCl Not-T aking oxyBUTYnin Not-Takin g Social History Tobacco Use: Social History Observation Description Date Details (start date - stop date) Current Smoker NA - NA Tobacco Control (Standard) Question Answer Notes Tobacco use: Current every day smoker Additional Findings: Tobacco user Moderate cigar ette smoker (10-19 cigs/day) Problems Problem Type SNOMED Code ICD Code Onset Dates Problem Status W/U Status Risk Notes Problem Mood disorder (89207584) Mood disorder (F39) Active confirmed Consideration to Borderline Personality Disorder vs Schizoaffective d/o depressed type Problem 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 confirmed Problem Nightmares (530622398) Nightmares (F51.5) 024 Active confirmed Problem Anxiety state (645628021) Anxiety disorder, unspecified type (F41.9) 025 Active confirmed Problem Tobacco use (331529206) Tobacco use disorder (F17.200) 024 Active confirmed Encounters Encounter Location Date Provider Diagnosis [address] [address] 05/13/2024 Kyria Watson Tobacco use disorder F17.200 ; Mood disorder F39 and Nightmares F51.[address] [address] 06/10/2024 Kyria Watson Mood disorder F39 ; Tobacco use disorder F17.200 and Nightmares F51.[address] [address] 07/23/2024 Kyria Watson Mood disorder F39 ; Tobacco use disorder F17.200 ; Nightmares F51.5 and Insomnia due to mental disorder F51.[address] [address] 09/03/2024 Kyria Watson Mood disorder F39 ; Tobacco use disorder F17.200 ; Nightmares F51.5 and Insomnia due to mental disorder F51.05 Formerly [facility] [address] [place] [address] 10/20/2024 Kyria Watson Mood disorder F39 ; Tobacco use disorder F17.200 ; Nightmares F51.5 ; Insomnia due to mental disorder F51.05 and Anxiety disorder, unspecified type F41.9 Formerly [facility] [address] [place] [address] 12/08/2024 Kyria Watson Mood disorder F39 ; Tobacco use disorder F17.200 ; Nightmares F51.5 ; Insomnia due to mental disorder F51.05 and Anxiety disorder, unspecified type F41.[address] [address] 12/09/2024 Bea Jenkins Mood disorder F39 [address] [address] 06/11/2024 Juanis Tiradon Formerly [facility] [address] [place] [address] 08/25/2024 Chanda Reynolds Mood disorder F39 Formerly [facility] [address] [place] [address] 11/11/2024 Maximinoria Watson [address] [place] [address] 12/09/2024 Maximinoria Walter [address] [place] [address] 01/15/2025 Kyria Watson [address] [place] [address] 01/20/2025 Kyria Watson Mood disorder F39 and Nightmares F51.[address] [place] [address] 01/26/2025 Kyria Watson Mood disorder F39 and Nightmares F51.5 Assessments Encounter Date Diagnosis (ICD Code) Assessment [...] 10/20/2024 Tobacco use disorder (ICD-10 - F17.200) 12/08/2024 Mood disorder (ICD-10 - F39) Consideration to Borderline Personality Disorder vs Schizoaffective d/o depressed type 12/09/2024 Mood disorder (ICD-10 - F39) Consideration to Borderline Personality Disorder vs Schizoaffective d/o depressed type 01/20/2025 Mood disorder (ICD-10 - F39) 01/26/2025 Mood disorder (ICD-10 - F39) 01/26/2025 Nightmares (ICD-10 - F51.5) 12/08/2024 Tobacco use disorder (ICD-10 - F17.200) 01/20/2025 Nightmares (ICD-10 - F51.5) 10/20/2024 Nightmares (ICD-10 - F51.5) 09/03/2024 Tobacco use disorder (ICD-10 - F17.200) 06/10/2024 Tobacco use disorder (ICD-10 - F17.200) 07/23/2024 Nightmares (ICD-10 - F51.5) 05/13/2024 Nightmares (ICD-10 - F51.5) Today's visit: Patient is a 58-year-old female who presents for a psychiatric evaluation over phone and is located in [place]. PHQ-9 score of 8, KACIE-7 score of [...] or be administered own oral medications per [facility] protocols. Provided informed consent with understanding of [...] is located in [place]. Previously seen on 05/13/2024 for an evaluation [...] or be administered own oral medications per [facility] protocols. Provided informed consent with understanding of [...] is located in [place]. Previously seen on 06/10/2024 and during this [...] or be administered own oral medications per [facility] protocols. Provided informed consent with understanding of [...] or be administered own oral medications per [facility] protocols. Provided informed consent with understanding of side effects, adverse effects, risks and benefits as well as alternative treatments as previously discussed and with the above recommended medications & other aspects of the treatment program. Agrees to return sooner if symptoms worsen or suicidal or homicidal ideations occur. 12/08/2024 Nightmares (ICD-10 - F51.5) 10/20/2024 Anxiety disorder, unspecified type (ICD-10 - F41.9) 12/08/2024 Insomnia due to mental disorder (ICD-10 - F51.05) Today's visit: Patient is a 59-year-old female who presents for a psychiatric follow-up over phone and is located in [place]. Previously seen on 10/20/2024 and during this appt was increased on Thorazine to QAM and started on hydroxyzine for anxiety, dc'd off Cogentin. Will increase Thorazine to 100 mg twice daily to better manage mood symptoms. Will increase Zoloft to 200 mg daily for depression. Will discontinue hydroxyzine due to ineffectiveness. Will restart Cogentin as needed for potential extrapyramidal symptoms (swallowing difficulties). Patient to continue Buspar and prazosin as currently prescribed. Recommended in-person evaluation to assess for possible tardive dyskinesia and AIMS scoring. Patient has crisis numbers and will reach out if suicidal thoughts worsen. Encourage pt to consider therapy; she declines at this time. Contacted [facility] behavioral health to reach out to patient for safety planning. No acute safety concerns the time of this appt, she is agreeable to treatment plan and was provided an opportunity to ask questions. May self-administer medications or be administered own oral medications per [facility] protocols. Provided informed consent with understanding of [...] is located in [place]. Previously seen on 07/23/2024 and during this [...] form increase in Zoloft, will increase again [id number] daily to target depression and anxiety. Will [...] or be administered own oral medications per [facility] protocols. Provided informed consent with understanding of side effects, adverse effects, risks and benefits as well as alternative treatments as previously discussed and with the above recommended medications & other aspects of the treatment program. Agrees to return sooner if symptoms worsen or suicidal or homicidal ideations occur. 12/08/2024 Anxiety disorder, unspecified type (ICD-10 - F41.9) Plan Of Treatment Next Appt Details Provider Name:Juanis louis, 02/03/2025 01:00:00 PM, [address], [address], Insurance Providers Payer Name Payer Address Payer Phone Subscriber Number Group Number Insured Name Patient Relationship to Insured Coverage Start Date Coverage End Date MEDICARE PART A [address] [place] [phone] [id number] Mahnaz Oseguera Self - patient is the insured 3 MEDICAID [address] [place] [address] [id number] Mahnaz Oseguera Self - patient is the insured 3 [place] MED[employer]ARE [address] [place] [address] [id number] Mahnaz Oseguera Self - patient is the insured 3 3 MEDICARE 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
--- OUTSIDE RECORDS SUMMARY | 2025-01-30 18:34 | XMS_ITS | Referral Summary ---
Author Organization [facility] [address] Address [address] [place] [address] Care Team Providers Care Dining Services Director Name Role Phone Neil Barbour MD Primary Care Provider Ismael Vanegas MD Unavailable [phone] Allergies Active Allergy Reactions Criticality Noted [...] Medium 10/19/2012 unk Lidocaine Unknown 10/19/2012 unk Ewbppehc-Hbkpzqswbx-Lypxg yxin Olanzapine Anaphylaxis High 10/19/2012 unk Oxycodone [...] Day Cigarettes 1 48 Smokeless Tobacco: Never [facility] Utilities Answer Date Recorded In the past 12 months has [employer], oil, or water [employer] threatened to shut off services in your [...] often do you attend chur ch or mosque services? Never 08/07/2023 Do you belong to [...] place to sleep or slept in a snf (including now)? No 08/07/2023 Personal Safety Answer Date Recorded Have you ever been in or are you currently in a harmful physical or emotional relationship or is someone making you feel afraid or unsafe? Denies 08/05/2023 Comments No Sex and Gender Information Value Date Recorded Sex Assigned at Not on file Legal Sex Female 4:20 PM GOLF COURSE SUPERINTENDENT Gender Identity Not on file Sexual Orientation Not on file Last Filed Vital Signs Vital Sign Reading Time Taken Comments Blood Pressure 109/63 08/07/2023 3:31 PM GOLF COURSE SUPERINTENDENT Pulse 101 08/07/2023 3:31 PM GOLF COURSE SUPERINTENDENT Temperature 36.9 C (98.5 F) 08/07/2023 3:31 PM GOLF COURSE SUPERINTENDENT Respiratory Rate 18 08/07/2023 3:31 PM GOLF COURSE SUPERINTENDENT Oxygen Saturation 98% 08/07/2023 3:31 PM GOLF COURSE SUPERINTENDENT Inhaled Oxygen Concentration - - Weight 71.7 kg (158 lb 1.1 oz) 08/05/2023 12:15 PM GOLF COURSE SUPERINTENDENT Height 157.5 cm (5' 2) 08/05/2023 12:15 PM GOLF COURSE SUPERINTENDENT Body Mass Index 28.91 08/05/2023 12:15 PM GOLF COURSE SUPERINTENDENT Plan of Treatment Not on file Medical Devices Implanted Type Area Refinery Operator Coking Device Identifier Shelf Expiration Date Model / Serial / Lot [employer]ood Contour 6fr 26cm Large Inner Lumen Low Profile Bladder Shane Taper Latex Free [id number] - [id number] Implanted:Qty: 1 on 08/05/2023 by Ismael Vanegas MD at [facility] Stent Right: Ureter [employer] Masood 04/01/2026 [id number] / / [id number] Insurance MEDICARE IDPA MEDICARE IDPA MEDICARE [facility] Address: [address] [address] [place] [address] IDPA Advance Directives For more information, please contact: [phone] * Full Code (Latest Code Status on File) Date Activated Date Inactivated Comments 08/05/2023 8:31 PM 08/07/2023 7:47 PM Care Teams Dining Services Director Relationship Specialty Start Date End Date Neil Barbour MD [address] [place] [id number] PCP - General Gastroenterology 03/27/23 [place] [address] [place] [address] Consulting Physician Urology 08/07/23
--- OUTSIDE RECORDS SUMMARY | 2025-01-30 18:34 | XMS_ITS | CONTINUITY OF CARE DOCUMENT ---
Author Name supriya epps Address Unknown Organization [facility] Address [address] [place] [address] [address] [place] [address] Phone [phone] Care Team Providers Care Sales Representative Health Insurance Name Role Phone LEV SUERO, PATRICIA Unavailable [phone] INSURANCE PROVIDERS Payer name Policy type / Coverage type Reagan red democrat [employer] Medicaid 1 [id number] [place] MED[place] Medicare [id number]
--- OUTSIDE RECORDS SUMMARY | 2025-01-30 18:34 | XMS_ITS ---
Author Organization [facility] Address [address] [place] [address] Care Team Providers Care Paper Pattern Inspector Name Role Phone Juanis Watson Primary Care [...] Latex Unknown Allergy Active REASON FOR VISIT 4 week F/U Medications Medication SIG (Take, Route, Frequency, Duration) Notes Start Date End Date Status Sertraline HCl 200 MG 1 tablet Orally Once a day for 30 days Blister packs Active Prazosin HCl 5 MG 2 capsules at bedtime Orally Once a day for 30 days Blister packs Active Benztropine Mesylate 0.5 MG 1 tablet as needed Orally Once a day for 30 days 12/08/2024 Active busPIRone HCl 30 MG 1 tablet Orally Twice a day for 30 days Blister packs Active chlorproMAZINE HCl 100 MG 1 tablet Orally Twice a day for 30 days Blister packs Active Gabapentin 600 MG 1 tablet Orally at bedtime Active Docusate Sodium Not- Taking chlorproMAZINE HCl 25 MG 1 tablet Orally in the morning for 30 days Blister packs 10/20/2024 Active Tamsulosin HCl Not-T aking oxyBUTYnin Not-Takin g Potassium Active Cyclobenzaprine HCl 10 MG 1 tablet Orally twice a day Active Ondansetron 4 MG 1 tablet on the tongue and allow to dissolve Orally Once a day Active Encounters Encounter Location Date Provider Diagnosis [facility] [address] [place] [address] 01/20/2025 Juanis Watson Plan Of Treatment Next Appt Details Provider Name:Juanis louis, 02/03/2025 01:00:00 PM, [address] [place], [address], Progress Notes * Rhona ANGUIANOB: 6 (59 yo F)Acc No.[id number]:01/20/2025 UNLOCKED PROGRESS NOTE Patient: Mahnaz OWENS Provider: JACQUE Ruano :1965 A ge:59 Y S ex:Female Date:01/20/2025 Address:[address] [place], [place] [id number] Subjective: * Chief Complaints: * 1 . 4 week F/U. * HPI: P sych F/U: Changes since last visit?: R eports continued anxiety, stating, I still am nervous all the time. Tried Thorazine 25 mg and 50 mg, which were ineffective, but 75 mg seemed to kind of calm it down. States Thorazine helps reduce nervousness and shaking. Describes jerking or twitching sensations in the torso, particularly at bedtime, along with difficulty swallowing which she feels has been mostly the same except the swallowing and are intermittent. Buspar has been helping with anxiety as well she feels but continues to have high anxiety. Reports passive suicidal ideation, describing a plan of cutting her self or jumping off a boat, I'm not going to commit suicide. It's not like I would do that to my family. Patient denies intent, finds the idea of a plan to be more intrusive thinking, feelings of SI come on 1-2x a week; denies presently. Feels comfortable calling crisis if they become worse.Expresses worry about the future, particularly regarding her mother's health and care for her dog. Reports hydroxyzine is ineffective, stating, it doesn't even touch me. Denies auditory or visual hallucinations/paranoia. Prazosin is effective for nightmares and daytime flashbacks. Reports nasal congestion as a side effect of Thorazine.Reviewed depressive and anxiety sx through PHQ-9 and KACIE-7 screenings. Denies any feelings of HI or aggression. Asks if her antidepressant can be increased.. D epression Screening: Intervention D epression Screening Findings P ositive F ollow-Up for Depression P rescribed psychotropic medications S creening: [place] Suicide Severity Rating Scale (LF) D o you want to initiate with S creener form I nterpretation: L ow Risk 6 . Suicide Behavior Question: Have you ever done anything,started to do anything, or prepared to end your life? N o 2 . Suicidal Thoughts: Have you actually had any thoughts of killing yourself? Y es 5 . Suicide Intent with Specific Plan: Have you started to work out or worked out the details of how to kill yourself? Do you intend to carry out this plan? N o 4 . Suicidal Intent (without Specific Plan): Have you had these thoughts and had some intention of acting on them? N o 3 . Suicidal Thoughts with Method (without Specific Plan or Intent to Act): Have you been thinking about how you might do this? Y es 1 . Wish to be : Have you wished you were or wished you could go to sleep and not wake up? Y es C SSRS Interpretation and Follow Up Plan: CSSRS Interpretation and Follow Up Plan C SSRS Screen documented using SF Y es R isk Disposition from L ow - No Follow Up Plan Required F ollow Up Plan N o Follow Up Plan required at this time. * Medical History: U retal cancer - resolved, Constipation. * Surgical History: b ack surgery 1999, hysterectomy 2000, foot surgery . * Hospitalization/Major Diagno stic Procedure: b ack surgery 1999, hysterectomy 2000, foot surgery , Psychiatric inpatient for I over dosed , Touchette for 3 days Sep 2023, Psychiatric inpatient for OD on medicines for trying to get high Jul 2023, Psychiatric inpatient in [place], not taking my medication 1996. * Family History: F ather: . M [...] Status: O n Disability * Medications: T aking Potassium , Taking Cyclobenzaprine HCl 10 MG Tablet 1 tablet Orally twice a day , Taking Ondansetron 4 MG Tablet Disintegrating 1 tablet on the tongue and allow to dissolve Orally Once a day , Taking Gabapentin 600 MG Tablet 1 tablet Orally at bedtime , Taking chlorproMAZINE HCl 25 MG Tablet 1 tablet Orally in the morning , Notes to Pharmacist: Blister packs, Taking busPIRone HCl 30 MG Tablet 1 tablet Orally Twice a day , Notes to Pharmacist: Blister packs, Taking chlorproMAZINE HCl 100 MG Tablet 1 tablet Orally Twice a day , Notes to Pharmacist: Blister packs, Taking Sertraline HCl 200 MG Capsule 1 tablet Orally Once a day , Notes to Pharmacist: Blister packs, Taking Prazosin HCl 5 MG Capsule 2 capsules at bedtime Orally Once a day , Notes to Pharmacist: Blister packs, Taking Benztropine Mesylate 0.5 MG Tablet 1 tablet as needed Orally Once a day , Not-Taking Tamsulosin HCl , Not-Taking oxyBUTYnin , Not-Taking Docusate Sodium * Allergies: U ltram, Neosporin, Latex, Zithromax, RisperDAL, Haldol, Amoxicillin, steroids, Erythromycin, Asenapine. Objective: * Vitals: Assessment: Plan: * Treatment: * Recommended Wellness and Pre vention Guidelines: * S tatus A reji L ast Done N ext Due A ction Taken N ONCOMPLIANT B reast cancer screening - 0 01/20/2025 - N ONCOMPLIANT C ervical cancer screening - 0 01/20/2025 - N ONCOMPLIANT C holesterol screen (genl pop) - 0 01/20/2025 - N ONCOMPLIANT C olorectal cancer screening - 0 01/20/2025 - N ONCOMPLIANT H IV screening - 0 01/20/2025 - * * Electronic signature of Regina Watson on 01/30/2025 at 06:34 PM CDT Sign off status: Pending * Provider: Cynthia Watson, PMHNP Date: 0 01/20/2025 Generated for Vanessa zendejas/Shazia/Alejandra on: 0 01/30/2025 06:34 PM CDT History and Physical Notes * HPI (History of Present Illness) Category Sub-Category Detail Notes Category Not es Depression Screening Intervention Depression Screening Findings: Positive Follow-Up for Depression: Prescribed psy chotropic medications Psych F/U Changes since last visit?: Repor ts continued anxiety, stating, I still am nervous all the time. Tried Thorazine 25 mg and 50 mg, which were ineffective, but 75 mg seemed to kind of calm it down. States Thorazine helps reduce nervousness and shaking. Describes jerking or twitching sensations in the torso, particularly at bedtime, along with difficulty swallowing which she feels has been mostly the same except the swallowing and are intermittent. Buspar has been helping with anxiety as well she feels but continues to have high anxiety. Reports passive suicidal ideation, describing a plan of cutting her self or jumping off a boat, I'm not going to commit suicide. It's not like I would do that to my family. Patient denies intent, finds the idea of a plan to be more intrusive thinking, feelings of SI come on 1-2x a week; denies presently. Feels comfortable calling crisis if they become worse.Expresses worry about the future, particularly regarding her mother's health and care for her dog. Reports hydroxyzine is ineffective, stating, it doesn't even touch me. Denies auditory or visual hallucinations/paranoia. Prazosin is effective for nightmares and daytime flashbacks. Reports nasal congestion as a side effect of Thorazine.Reviewed depressive and anxiety sx through PHQ-9 and KACIE-7 screenings. Denies any feelings of HI or aggression. Asks if her antidepressant can be increased. Screening [place] Suicide Sev erity Rating Scale (LF) Do you want to initiate with: Screener form Interpretation:: Low Risk 6. Suicide Behavior Question: Have you ever done anything,started to do anything, or prepared to end your life?: No 2. Suicidal Thoughts: Have you actually had any thoughts of killing yourself?: Yes 5. Suicide Intent with Specific Plan: Have you started to work out or worked out the details of how to kill yourself? Do you intend to carry out this plan?: No 4. Suicidal Intent (without Specific Plan): Have you had these thoughts and had some intention of acting on them?: No 3. Suicidal Thoughts with Method (without Specific Plan or Intent to Act): Have you been thinking about how you might do this?: Yes 1. Wish to be : Have you wished you were or wished you could go to sleep and not wake up?: Yes CSSRS Interpretation and Follow Up Plan CSSRS Interpretation and Follow Up Plan CSSRS Screen documented using SF: Yes Risk Disposition from SF: Low - No Follo w Up Plan Required Follow Up Plan: No Follow Up Plan requir ed at this time.
--- OUTSIDE RECORDS SUMMARY | 2025-01-30 18:34 | XMS_ITS | Clinical Summary ---
Author Organization [facility] [address] Address [address] [place] [address] Care Team Providers Care Aircraft Manager Name Role Phone Neil Barbour MD Primary Care Provider Ismael Vanegas MD Unavailable [phone] Allergies Active Allergy Reactions Criticality Noted [...] Medium 10/19/2012 unk Lidocaine Unknown 10/19/2012 unk Flibhgol-Xymxzqvmar-Cchni yxin Olanzapine Anaphylaxis High 10/19/2012 unk Oxycodone [...] Back Surgery - (Added by TW Conv) MO TOTAL ABDOMINAL HYSTERECT W/WO RMVL TUBE OVARY Hysterectomy - (Added by TW Conv) [place] TONSILLECTOMY PRIMARY/SEC ONDARY <AGE 12 Tonsillectomy - [...] 1 48 Smokeless Tobacco: Never [facility] Utilities Answer Date Recorded In the [...] often do you attend chur ch or lutheran services? Never 08/07/2023 Do you belong to any clubs o r organizations such as religious groups, unions, fraternal or athletic groups, or [...] on file Legal Sex Female 4:20 PM SIGHT MOUNTER Gender Identity Not on file Sexual Orientation Not on file Obstetrics History Last Filed Vital Signs Vital Sign Reading Time Taken Comments Blood Pressure 109/63 08/07/2023 3:31 PM SIGHT MOUNTER Pulse 101 08/07/2023 3:31 PM SIGHT MOUNTER Temperature 36.9 C (98.5 F) 08/07/2023 3:31 PM SIGHT MOUNTER Respiratory Rate 18 08/07/2023 3:31 PM SIGHT MOUNTER Oxygen Saturation 98% 08/07/2023 3:31 PM SIGHT MOUNTER Inhaled Oxygen Concentration - - Weight 71.7 kg (158 lb 1.1 oz) 08/05/2023 12:15 PM SIGHT MOUNTER Height 157.5 cm (5' 2) 08/05/2023 12:15 PM SIGHT MOUNTER Body Mass Index 28.91 08/05/2023 12:15 PM SIGHT MOUNTER Plan of Treatment Health Maintenance Due Date Last Done Comments Breast Cancer Screening-Mammogram 1966 Colon Cancer Screening-Colonoscopy 1965 Depression Screening 1966 Hepatitis B Screening 1984 Regular Well Visit/Exam 18-64 1984 Pneumococcal vaccine <65 (1 of 2 - PCV) 1985 DTaP/Tdap/Td Vaccine (1 - Tdap) 10/06/2012 3 Zoster Vaccine (1 of 2) 2016 Influenza Vaccine (Season Ended) 2025 07/16/2023, 07/04/2021, 05/18/2020, Additional history exists Hepatitis C Screening Completed 06/22/2010 Medical Devices Implanted Type Area Charge Operator Device Identifier Shelf Expiration Date Model / Serial / Lot [employer] Contour 6fr 26cm Large Inner Lumen Low Profile Bladder Shane Taper Latex Free 180-223 - [id number] Implanted:Qty: 1 on 08/05/2023 by Ismael Vanegas MD at [facility] Stent Right: Ureter [employer] 04/01/2026 [id number] / / [id number] Insurance MEDICARE [place] MEDICARE ID[place] MEDICARE IDPA Advance Directives For more information, please contact: [phone] * Full Code (Latest Code Status on File) Date Activated Date Inactivated Comments 08/05/2023 8:31 PM 08/07/2023 7:47 PM Care Teams Aircraft Manager Relationship Specialty Start Date End Date Neil Barbour MD [address] [address] PCP - General Gastroenterology 03/27/23 [place] [address] [place] [id number] Consulting Physician Urology 08/07/23
--- OUTSIDE RECORDS SUMMARY | 2025-01-30 18:34 | XMS_ITS ---
Author Organization [facility] Address [address] [place] [address] Care Team Providers Care Executive Sales Assistant Name Role Phone Juanis Watson Primary Care Provider [phone] REASON FOR VISIT 4 week F/U Encounters Encounter Location Date Provider Diagnosis [facility] [address] [place] [id number] 01/27/2025 Juanis Watson Plan Of Treatment Next Appt Details Provider Name:Juanis louis, 02/03/2025 01:00:00 PM, [address], [address], Progress Notes * Rhona ANGUIANOB: 6 (59 yo F)Acc No.[id number]:01/27/2025 UNLOCKED PROGRESS NOTE Patient: Mahnaz OWENS Provider: JACQUE Ruano :1965 A ge:59 Y S ex:Female Date:01/27/2025 Address:[address] [place], [place] [id number] Subjective: * Chief Complaints: * 1 . 4 week F/U. * Medical History: Objective: * Vitals: Assessment: Plan: * Treatment: * * Electronic signature of Regina Watson on 01/30/2025 at 06:33 PM CDT Sign off status: Pending * Provider: JACQUE Ruano Date: 01/27/2025 Generated for Vanessa zendejas/Shazia/eTransmitting on: 01/30/2025 06:33 PM CDT
--- OUTSIDE RECORDS SUMMARY | 2025-01-30 18:34 | XMS_ITS | Data Portability ---
Author Organization [facility] Tomo Clases, Main Office Address [address] [place] [address] Care Team Providers Care Rock Breaker Name Role Phone PHYLLIS GALVEZ Primary Care Provider [phone] PHYLLIS GALVEZ Referring Provider [phone] Assessment No assessment recorded. Plan of Treatment Reminders Order Date Submit Date Provider Last Modified By Organization Details Last Modified Time Details Appointments None recorded. Lab drug screen, urine 2024 025 [facility] (Lab), [address] [place], [address], 5 10:26:58 urinalysis , dipstick 2024 025 [facility], [address] [place] [address], [address], 12:15:29 vitamin D, 25-hydroxy , total, serum [address] (Lab), [address] [place], [address], 5 09:13:10 vitamin B12 + folate, serum or blood [address] (Lab), [address] [place], [address], 5 09:13:10 CBC w/ auto diff [address] (Lab), [address] [place], [address], 5 09:13:10 TSH, serum or plasma [address] (Lab), [address] [place], [address], 5 09:13:10 glycohemog lobin, total, blood [address] (Lab), [address] [place], [address], 5 09:13:10 lipid panel, serum [address] (Lab), [address] [place], [address], 5 09:13:10 CMP, serum or plasma [address] (Lab), [address] [place], [address], 5 09:13:11 Referral orthopedic surgeon referral - Please call patient to schedule an appointmen t. Thank you. 2024 025 [facility], [address], [place], [address], 14:51:00 Procedures None recorded. Surgeries None recorded. Imaging None recorded. Medication Orders butalbital 50 mg-acetami nophen 325 mg tablet 2024 025 [id number], [address] [place], [id number], 16:39:27 cyclobenza bryn 10 mg tablet 2024 025 [facility][id number], [address] [place], [id number], 11:50:40 Patient TargetsNo targets recorded. Patient Instructions Encounter Date Encounter Id Patient Instructions Last Modified By Organization Details Last Modified Time 09/10/2024 [id number] reviewed her medications at length as possible [...] lifelong ailment with limited to no treatment. [email or web address] Not available 09/10/2024 12:09:09 Reason for Referral Orthopedic Surgeon Referral for Osteoarthritis of right hip joint Please call patient to schedule an appointment. Thank you. Referring Physician: Nova Gustafson, Family Medicine, Encounter Date: 01/15/2025 Results Created Date Observation Date Name Description Value Unit Range Abnormal Flag Note LastModifiedBy Organization Detail LastModifiedTime 03/05/2003/05/2022 COVID -19 (SARS COV-2 ) RNA, HOLLY covid-19 RNA negati ve This test has been autho rized by the FDA under an Emerg ency Use Autho rizat ion (EUA) for use by autho rized labor atori es. Negat charlette resul ts shoul d be treat ed as presu mptiv e and, if incon siste nt with clini terrie signs and sympt oms neces jazzy for patie nt manag ement , shoul [...] provi ders and patie nts at the [facility] te: https ://ww w.mariano bal[facility]. abbot tam/en/ produ ct-de tails /id-n ow-co vid-1 9.htm l Metho dolog y: Isoth ermal Nucle ic Acid Ampli ficat ion Not Available [facility] (Lab) [address] [place], [address], 03/05/2022 14:48:59 01/16/20 25 01/15/2025 urina lysis , dipst ick Leukocytes (reference range: negative mack/ l) Negati ve Not Available [address], [address], 01/15/2025 11:37:54 01/16/20 25 01/15/2025 urina lysis , dipst ick Nitrite (reference rage: negative mg/dl) negati ve Not Available [address], [address], 01/15/2025 11:37:54 01/16/20 25 01/15/2025 urina lysis , dipst ick Urobilinogen (reference range: 0.2-1 mg/dl) 0.2 Not Available [address], [address], 01/15/2025 11:37:54 01/16/20 25 01/15/2025 urina lysis , dipst ick Protein (reference range: negative mg/dl) Negati ve Not Available [address], [address], 01/15/2025 11:37:54 01/16/20 25 01/15/2025 urina lysis , dipst ick pH (reference range: 5-7) 5.5 Not Available [address], [address], 01/15/2025 11:37:54 01/16/20 25 01/15/2025 urina lysis , dipst ick Blood (reference range: negative Cayden/ l) Negati ve Not Available [address], [address], 01/15/2025 11:37:54 01/16/20 25 01/15/2025 urina lysis , dipst ick Specific Henderson (reference range: 1.005-1.030) 1.005 Not Available [address], [address], 01/15/2025 11:37:54 01/16/20 25 01/15/2025 urina lysis , dipst ick Ketone (reference range: negative mg/dl) Negati ve Not Available [address], [address], 01/15/2025 11:37:54 01/16/20 25 01/15/2025 urina lysis , dipst ick Bilirubin (reference range: negative mg/dl) Negati ve Not Available [address], [address], 01/15/2025 11:37:54 01/16/20 25 01/15/2025 urina lysis , dipst ick Glucose (reference range: negative mg/dl) Negati ve Not Available [address], [address], 01/15/2025 11:37:54 01/16/20 25 01/15/2025 urina lysis , dipst ick Appearance Clear Not Available [address], [address], 01/15/2025 11:37:54 01/16/2001/15/2025 urina lysis , dipst ick Color Yellow Not Available [facility] [place] [facility], [place], [address], 01/15/2025 11:37:54 03/22/20 22 03/22/2022 XR, foot No observ ation record ed. [id number] [facility] [place] [address], [place], [address], 11/07/2022 05:56:49 04/03/20 22 04/05/2022 XR, foot No observ ation record ed. [id number] [facility] [place] [address], [place], [address], 11/07/2022 05:56:49 08/29/20 22 XR, lumba r spine No observ ation record ed. [id number] [facility] [place] [address], [place], [address], 11/07/2022 05:56:49 08/29/20 22 XR, hip + pelvi s, unila teral No observ ation record ed. [id number] [facility] [place] [address], [place], [address], 11/07/2022 05:56:49 09/06/20 22 MRI, lumba r spine , w/o contr ast [facility] [place] [address] [facility] [place] [address] Patien t Name: MAHNAZ MARTINEZ MS Access ion #: [id number] Sex: F : 1964 1 Locati on: RA2 Attend ing Physic ari: AMADEO COUGHLIN Orderi ng Physic ari: AMADEO COUGHLIN Exam Date: 2021 9:47 AM Exam [...] rative etiolo gy. Page 1 of 3 [facility] t Name: MICHELLE BROWN MAHNAZ Bunch Access ion #: [id number] Sex: F : 1964 1 Exam [...] rate left neural forami nal stenos is. Deja lane s: Image 801-29 demons trates a simple cyst measur ing 8 mm, left kidney . Page 2 of 3 [facility] Patien t Name: MAHNAZ MARTINEZ MS Access ion #: [id number] Sex: F : 1964 1 Exam Date: 2021 9:47 AM Exam Name: MRI L SPINE WO Admitt ing Diagno sis(es ): IMPRES JAQUELIN: See above. Create d and electr onical ly signed by: Kristopher gomez MD Signed Date: 2021 3:19 PM (CT) Dictat ed by: Kristopher gomez MD DD: 2021 3:19 PM (CT) DT: 2021 3:19 PM (CT) Page 3 of 3 [id number] [facility] (Imaging) [address] [place], [address], 11/07/2022 05:56:49 07/04/20 23 07/04/2023 CT, abdom en + pelvi s, w/o contr ast No observ ation record ed. [email or web address] [address] [facility], [place], [address], 12/11/2023 15:29:02 12/13/19 24 09/20/2023 XR, knee, 3 view No observ ation record ed. [email or web address] Not Available 01/2024 15:40:22 09/16/19 25 09/16/2024 XR, lumba r spine No observ ation record ed. [email or web address] [address], [place], [address], 09/23/2024 16:57:07 09/17/19 25 09/16/2024 CT, tempo ral bone, w/o contr ast No observ ation record ed. [email or web address] [facility] [address], [place], [address], 09/23/2024 16:49:23 09/17/19 25 09/17/2024 XR, lumba r spine No observ ation record ed. [facility] [address], [place], [address], 09/17/2024 11:33:10 09/17/19 25 09/17/2024 CT, tempo ral bone, w/o contr ast No observ ation record ed. [address], [place], [address], 09/23/2024 16:53:21 09/28/19 25 09/28/2024 audio gram + tympa nogra m No observ ation record ed. [address] Aud[facility] [address] [facility] [address], [place], [address], 10/12/2024 16:23:27 10/26/19 25 10/26/2024 audio gram + tympa nogra m No observ ation record ed. [facility] [address] [facility] [address], [place], [address], 10/26/2024 11:03:19 01/08/20 25 01/07/2025 imagi ng/di agnos tic resul t No observ ation record ed. [facility] [address] [place], [address], 01/07/2025 14:40:37 Result Notes None recorded. Problems Name Problem SNOMED Code Status Onset Date Resolution Date Notes Provider Name and Address Organization Details Recorded Time Metatars curry 52084987 Completed 201901/15/2025 TYLER Caban [address] [facility], [address], [place], [address] , [place] [facility] [employer] [facility] 5 11:46:52 Bipolar disorder 44525393 Active Not Available [facility] 3 05:53:03 Postoper ative visit 557054815 Completed 201901/15/2025 TYLER Caban [address], [address], [place], [address] , [facility] 5 11:46:40 Menopaus al flushing 830361312 Completed 01/15/2025 Surgical menopaus e TYLER Caban [address], [address], [place], [address] , [place] [facility] [employer] [facility] 5 11:46:55 Postoper ative pain 963077836 Completed 201901/15/2025 TYLER Caban [address], [address], [place], [address] , [facility] [employer] [facility] 5 11:46:43 Vaginal discharg e 985031929 Completed 01/15/2025 TYLER Caban [address], [address], [place], [address] , [employer] [facility] 5 11:46:36 Pain of left hip joint 67835498329 9100 Completed 202101/15/2025 TYLER Caban [address], [address], [place], [address] , [facility] [employer] [facility] 5 11:46:46 Closed fracture of lateral malleolu s 20536713 Completed 01/15/[address], [place], [address] , [employer] [facility] 5 11:47:09 Ingrowin g toenail 380051282 Completed 202001/15/2025 TYLER Caban [address], [address], [place], [address] , [place] [facility] 5 11:46:57 Mixed urinary incontin ence 115136578 Completed 01/15/2025 TYLER Caban [address], [place], [address] , [facility] [employer] [facility] 5 11:46:49 Fracture of lower leg 466447780 Completed 01/15/2025 TYLER Caban [address], [place], [address] , [facility] [employer] [facility] 5 11:47:00 Acquired right hallux rigidus 15460884000 4100 Completed 201901/15/2025 TYLER Caban [address], [place], [address] , [facility] [employer] [facility] 5 11:47:16 Foot pain 28658197 Completed 202101/15/2025 TYLER Caban [address], [place], [address] , [facility] [employer] [facility] 5 11:47:02 Foot pain 55593824 Completed 202101/15/2025 TYLER Caban [address], [place], [address] , [facility] [employer] [facility] 5 11:47:05 Urinary tract infectio us disease 59980680 Active Not Available [facility] 3 05:53:04 Osteoart hritis of ankle and/or foot 09485702 Active 2021 Not Available [facility] 3 05:53:04 Tinnitus 73491629 Active 2024 Callie Corcoran RN null, [facility] [employer] [facility] 5 12:02:07 Bilatera l tinnitus 62480960532 02 Completed 202401/15/2025 TYLER Caban [address], [address], [place], [address] , [facility] [employer] [facility] 5 11:47:12 Osteoart hritis of right hip joint 41768743899 9107 Active 2024 TYLER Caban [address], [address], [place], [address] , [employer] 11:37:30 Recurren t urinary tract infectio n 043579959 Active 2024 TYLER Caban [address], [facility], [place], [address] , [employer] 11:37:47 Chronic primary low back pain Active [address] [employer] [address], [facility], [place], [address] , [employer] 11:38:36 Episodic migraine 79769282372 4106 Active 2024 TYLER Caban [employer], [facility], [place], [address] , [employer] 11:39:10 Body mass index 25-29 - overweig ht 629588270 Active [address] [employer] [address], [facility], [place], [address] , [employer] 11:47:58 Fatigue 48525341 Active 2024 TYLER Caban [employer], [address] [address], [place], [address] , [employer] 11:49:19 Notes:Some problems listed i n Document: #[id number] could not be added to this patient's chart. Please review this document and add these problems to the patient's chart manually as needed. Problem Notes None recorded. Procedures Surgical History Date Name Laterality Status Provider Name and Address Organization Details Recorded Time 08/05/20 23 procedure on ureter completed Sharla Joseph RN [facility] Slated 01/15/2025 11:16:13 09/09/19 01 hysterectomy completed Callie Corcoran RN [place] [facility] Sl[facility] 09/11/2024 08:33:11 01/08/20 procedure on back completed RON Ward [facility] 01/15/2025 11:13:34 01/08/20 excision of fallopian tube and surgical removal of ectopic completed RON Ward [facility] 01/15/2025 11:14:47 tonsillectomy completed RON Oquendo [facility] 09/10/2024 11:42:48 Foot Surgery [facility] 09/11/2024 08:33:49 Imaging Results Imaging Date Name Status LastModified by [facility] Details LastModified Time 09/06/2022 MRI, lumbar spine, w/o contrast completed [id number] [facility] (Imaging) [address] [place], [address], 11/07/2022 05:56:49 08/29/2022 XR, lumbar spine completed [id number] [facility] [place] [address] [facility] [address], [place], [address], 11/07/2022 05:56:49 08/29/2022 XR, hip + pelvis, unilateral completed [id number] [facility] [place] [address] [facility] [address], [place], [address], 11/07/2022 05:56:49 04/05/2022 XR, foot completed [id number] [facility] [place] [address], [place], [address], 11/07/2022 05:56:49 03/22/2022 XR, foot completed [id number] [facility] [place] [address] [facility] [address], [place], [address], 11/07/2022 05:56:49 07/04/2023 CT, abdomen + pelvis, w/o contrast completed [email or web address] [address] [facility], [place], [address], 12/11/2023 15:29:02 09/20/2023 XR, knee, 3 view completed [email or web address] Information not available 12/13/2023 15:40:22 09/16/2024 XR, lumbar spine completed [address] [facility], [place], [address], 09/23/2024 16:57:07 09/16/2024 CT, temporal bone, w/o contrast completed [address] [address], [place], [address], 09/23/2024 16:49:23 09/17/2024 XR, lumbar spine completed [facility] [address], [place], [address], 09/17/2024 11:33:10 09/17/2024 CT, temporal bone, w/o contrast completed [address], [place], [address], 09/23/2024 16:53:21 09/28/2024 audiogram + tympanogram completed [address] Audiology [address] [facility] [address], [place], [address], 10/12/2024 16:23:27 10/26/2024 audiogram + tympanogram completed [facility] [address] [facility] [address], [place], [address], 10/26/2024 11:03:19 01/07/2025 imaging/diagnos tic result active [facility] [address] [place], [address], 01/07/2025 14:40:37 Procedure Notes None recorded. Medical Equipment None Reported. Allergies Allergen ID Allergen Name Allergen Category Reaction Reaction Severity Criticality Documentation Date Start Date Code Code System Note Provider Name and Address Organization Details Recorded Time 9875 Zyprexa medicatio n swelling mild high 11/07/2022 30258 3 RxNorm shashank Joseph RN null, [facility] [employer] [facility] 5 11:03:30 9876 Ultram medicatio n rash Not available Not available 11/07/2022 67695 6 RxNorm Not Available [facility] 3 05:56:45 9877 Saphris medicatio n hives Not available Not available 11/07/2022 44368 6 RxNorm Not Available [facility] 3 05:56:45 9878 Risperdal medicatio n hives Not available Not available 11/07/2022 03218 8 RxNorm Not Available [facility] 3 05:56:45 9879 bacitraci n / neomycin / polymyxin B medicatio n rash Not available Not available 11/07/2022 52550 9 RxNorm Not Available [facility] 3 05:56:45 9880 Motrin medicatio n Not available Not available Not available 11/07/2022 35594 8 RxNorm Not Available [facility] 3 05:56:45 9881 latex environme nt,medica tion rash Not available Not available 11/07/2022 15301 91 RxNorm Not Available [facility] 3 05:56:45 9882 ibuprofen medicatio n vomiting Not available Not available 11/07/2022 5640 RxNorm Not Available [facility] 3 05:56:45 9883 Haldol medicatio n Not available Not available Not available 11/07/2022 35492 9 RxNorm GUNNER Corcoran RN null, [facility] [employer] [facility] 5 08:19:50 9884 grass pollen environme nt,medica tion rash Not available Not available 11/07/2022 52399 UNK Not Available [facility] 3 05:56:45 9885 erythromy kya medicatio n hives Not available Not available 11/07/2022 4053 RxNorm Not Available [facility] 3 05:56:45 9886 Product containin g glucocort icoid (product) medicatio n Not available Not available Not available 11/07/2022 45123 6006 SNOMED Not Available [facility] 3 05:56:45 9887 Cipro medicatio n vomiting Not available Not available 11/07/202204524 3 RxNorm Not Available [facility] 3 05:56:45 9888 amoxicill in medicatio n hives Not available Not available 11/07/2022 723 RxNorm Not Available [facility] 3 05:56:46 Medications Name Sig Start Date Stop Date Status Note LastModified by Organization Details LastModified Time tetracycl ine 500 mg capsule TK 1 C PO BID FOR 10 DAYS 08/19 completed Not Available Not Available Not Available carisopro dol 350 mg tablet TK 1 T PO QD PRF 30 DAYS 08/19 completed Not Available Not Available Not Available cyclobenz aprine 10 mg tablet TAKE 1 TABLET BY MOUTH AT BEDTIME NEEDED 2024 active Not Available Not Available Not Avai lable nitrofura ntoin macrocrys rosalind 50 mg capsule TAKE 1 CAPSULE BY MOUTH AT BEDTIME 09/11 completed Not Available Not Available Not Available gabapenti n 600 mg tablet TK 1 T PO TID 08/19 completed Not Available Not Available Not Available doxycycli ne hyclate 100 mg capsule 09/10 completed Not Available Not Available Not Available cefuroxim e axetil 250 mg tablet TK 1 T PO Q 12 H FOR 7 DAYS 08/19 completed Not Available Not Available Not Available benztropi ne 0.5 mg tablet TAKE 1 TABLET BY MOUTH TWICE DAILY DIRECTED 09/11 completed Not Available Not Available Not Available clindamyc in HCl 300 mg capsule TAKE 1 CAPSULE [...] completed Not Available Not Available Not Available fluconazo le 150 mg tablet TK 1 T PO 3 TIMES A WK FOR 7 DAYS 09/10 completed Not Available Not Available Not Available hydrocodo ne 5 mg-acetam inophen 325 mg tablet Take 1 tablet 3 times a day by oral route as directed . 2024 active Blela Alvarado CP Not Available Not Available Not Available chlorprom azine 100 mg tablet TAKE 1 TABLET BY MOUTH EVERY DAY AT BEDTIME active now taking one tab BID Not Available Not Available Not Available methylphe nidate 20 mg tablet TK 1 T PO QAM AND 1 T AT NOON QD 08/19 completed Not Available Not Available Not Available phenazopy ridine 200 mg tablet TK 1 T PO TID FOR 2 DAYS 09/11 completed Not Available Not Available Not Available famotidin e 40 mg tablet TK 1 T PO QD 08/19 completed Not Available Not Available Not Available sertralin e 100 mg tablet Take 1 tablet twice a day by oral route. active 100mg tab BID Not Available Not Available Not Available terconazo le 0.8 % vaginal cream I 1 APL VAGINALL Y QD FOR 3 DAYS 08/19 completed Not Available Not Available Not Available clonazepa m 1 mg tablet TK 1 T PO BID PRN 08/19 completed Not Available Not Available Not Available butalbita l 50 mg-acetam inophen 325 mg tablet TAKE 1 TABLET BY MOUTH EVERY 8 HOURS DIRECTED active Not Available Not Available No t Available phenytoin sodium extended 100 mg capsule TK 2 CS PO QAM AND 3 CS HS 09/11 completed Not Available Not Available Not Available acetamino phen 300 mg-codein e 30 mg tablet TAKE 1 TABLET BY MOUTH EVERY 6 HOURS NEEDED FOR PAIN. 09/11 completed Not Available Not Available Not Available sulfameth oxazole 800 mg-trimet hoprim 160 mg tablet TAKE 1 TABLET BY MOUTH TWICE DAILY 09/11 completed Not Available Not Available Not Available hydrocodo ne 10 mg-acetam inophen 325 mg tablet TAKE 1 TABLET BY MOUTH TWICE DAILY NEEDED 09/10 completed Not Available Not Available Not Available peg-elect rolyte solution 420 gram oral solution 09/11 completed Not Available Not Available Not Available omeprazol e 40 mg capsule,d elayed release TAKE 1 CAPSULE BY MOUTH EVERY DAY DIRECTED 09/11 completed Not Available Not Available Not Available butalbita l-acetami nophen-ca ffeine 50 mg-325 mg-40 mg tablet Take 1 tablet by mouth every 8 hrs as needed for migraine 2024 active Not Available Not Available Not Avai lable lamotrigi ne 25 mg tablet TK 2 TS PO BID UTD 08/19 completed Not Available Not Available Not Available norethin- eth estrad biphasic 0.5 mg-35 mcg(10)/1 mg-35 mcg(11) tablet Take 1 tablet every day by oral route. 02/23 completed Not Available Not Available Not Available prazosin 5 mg capsule TAKE 2 CAPSULES BY MOUTH EVERY DAY AT BEDTIME active Not Available Not Available No t Available oxycodone -acetamin ophen 5 mg-325 mg tablet TAKE ONE TABLET BY MOUTH EVERY 6 HOURS NEEDED FOR PAIN 09/10 completed Not Available Not Available Not Available famotidin e 20 mg tablet TAKE 1 TABLET BY [...] completed Not Available Not Available Not Available hydrocodo ne 7.5 mg-acetam inophen 325 mg tablet TAKE 1 TABLET BY MOUTH EVERY 6 HOURS NEEDED FOR PAIN 09/10 completed Not Available Not Available Not Available cephalexi n 500 mg capsule 09/10 completed Not Available Not Available Not Available chlorprom azine 25 mg tablet TAKE 4 TABLETS BY MOUTH EVERY DAY AT BEDTIME 09/11 completed Not Available Not Available Not Available ranitidin e 150 mg tablet TK 1 T PO BID 30 MINUTES B MEALS FOR 30 DAYS 09/11 completed Not Available Not Available Not Available buspirone 10 mg tablet 09/11 completed Not Available Not Available Not Available promethaz ine 25 mg tablet 09/11 completed Not Available Not Available Not Available Advair Diskus 250 mcg-50 mcg/dose powder for inhalatio n USE 1 INHALATI ON BY MOUTH TWICE DAILY 09/11 completed Not Available Not Available Not Available benztropi ne 1 mg tablet TAKE 1 TABLET BY MOUTH TWICE DAILY AROUND THE CLOCK 09/11 completed Not Available Not Available Not Available benztropi ne 2 mg tablet TAKE 1 TABLET BY MOUTH IN THE MORNING AND IN THE EVENING active Not Available Not Available No t Available gabapenti n 300 mg capsule TAKE 2 CAPSULES BY MOUTH THREE TIMES DAILY active Not Available Not Available No t Available omeprazol e 20 mg capsule,d elayed release TK 1 C PO BID B MEALS 09/11 completed Not Available Not Available Not Available ranitidin e 150 mg capsule Take 1 capsule twice a day by oral route. 2014 active Not Available Not Available Not Avai lable norethind dominic acetate 5 mg tablet TAKE 1/2 TABLET BY MOUTH TWICE DAILY 09/11 completed Not Available Not Available Not Available lorazepam 1 mg tablet Take 1 tablet 3 times a day by oral route. 2014 active Not Available Not Available Not Avai lable cefuroxim e axetil 500 mg tablet TAKE 1 TABLET BY MOUTH EVERY 12 HOURS FOR 10 DAYS 09/10 completed Not Available Not Available Not Available chlorprom azine 200 mg tablet TAKE 1 TABLET BY MOUTH EVERY DAY AT BEDTIME 09/11 completed Not Available Not Available Not Available estradiol 0.01% (0.1 mg/gram) vaginal cream Insert by vaginal route. 2014 active Not Available Not Available Not Avai lable albuterol sulfate HFA 90 mcg/actua tion aerosol inhaler INHALE 2 PUFFS BY MOUTH THREE TIMES DAILY NEEDED 09/11 completed Not Available Not Available Not Available oxybutyni n chloride 5 mg tablet Take 1 tablet twice a day by oral route. 08/19 completed Not Available Not Available Not Available ondansetr on 4 mg disintegr ating tablet DISSOLVE 1 TABLET ON THE TONGUE THREE TIMES DAILY NEEDED active Not Available Not Available No t Available sertralin e 50 mg tablet TAKE 1/2 TABLET BY MOUTH EVERY MORNING 09/11 completed Not Available Not Available Not Available prazosin 2 mg capsule TK 5 CS PO QD HS 09/11 completed Not Available Not Available Not Available chlorprom azine 50 mg tablet TK 1 T PO D IN THE MONRING 08/19 completed Not Available Not Available Not Available amoxicill in 875 mg-potass ium clavulana te 125 mg tablet TK 1 T PO Q 12 H TAT. active Not Available Not Available No t Available desiprami ne 150 mg tablet TAKE 2 TABLETS BY MOUTH EVERY DAY AT BEDTIME 09/11 completed Not Available Not Available Not Available buspirone 15 mg tablet TAKE 1 TABLET BY MOUTH THREE TIMES DAILY AROUND THE CLOCK active Not Available Not Available No t Available escitalop reynaldo 10 mg tablet TK 1 T PO D IN THE EVENING 08/19 completed Not Available Not Available Not Available ezetimibe 10 mg tablet TAKE 1 TABLET BY MOUTH EVERY DAY 09/11 completed Not Available Not Available Not Available nitrofura ntoin monohydra te/macroc rystals 100 mg capsule TK 1 C PO BID 09/11 completed Not Available Not Available Not Available omega-3 acid ethyl esters 1 gram capsule 09/11 completed Not Available Not Available Not Available Rozerem 8 mg tablet TK 1 T PO QHS 08/19 completed Not Available Not Available Not Available chlorhexi dine gluconate 0.12 % mouthwash SWISH AND SPIT 1 CAPFUL NIGHTLY FOR 7-10 DAYS 09/10 completed Not Available Not Available Not Available cholecalc iferol (vitamin D3) 1,250 mcg (50,000 unit) capsule TK ONE C PO Q WK WITH A MEAL UTD 09/11 completed Not Available Not Available Not Available diclofena c 1 % topical gel MARSHA 2 GRAMS EXT AA QID 09/11 completed Not Available Not Available Not Available estradiol 10 mcg vaginal tablet INSERT 1 TABLET VAGINALL Y 2 TIMES A WEEK DIRECTED 09/11 completed Not Available Not Available Not Available Myrbetriq 25 mg tablet,ex tended release TK 1 T PO QD 08/19 [...] Not Available Not Available Not Available Fluvirin 4485-5412 45 mcg (15 mcg x 3)/0.5 mL intramusc ular suspensio n INJECT 0.5 ML INTRAMUS CULARLY DIRECTED . active Not Available Not Available No t Available Fluvirin 45 mcg (15 mcg x 3)/0.5 mL intramusc ular suspensio n 08/19 completed Not Available Not Available Not Available Fluvirin (PF) 45 mcg (15 mcg x 3)/0.5 mL intramusc ular syringe ADM 0.5ML IM UTD 08/19 completed Not Available Not Available Not Available Flucelvax Quad (PF) 60 mcg (15 mcg x 4)/0.5 mL IM syringe ADM 0.5ML IM UTD 09/10 completed Not Available Not Available Not Available Afluria Qd 2019- (36 mos up)(PF)60 mcg (15 mcg x4)/0.5 mL IM syringe ADM 0.5ML IM UTD 09/11 completed Not Available Not Available Not Available Vitals Date Recorded Body height Provider Name an d Address Organization Details Last Updated DateTime 03/22/2022 160.02 cm Not Available [facility] 3 05:52:30 Date Recorded Body height Provider Name an d Address Organization Details Last Updated DateTime 04/05/2022 160.02 cm Not Available [facility] 3 05:52:30 Date Recorded Body height Provider Name an d Address Organization Details Last Updated DateTime 08/29/2022 160.02 cm Not Available [facility] 3 05:52:31 Date Recorded Body weight Body mass index (BMI) Body height Body temperature Provider Name and Address Organization Details Last Updated DateTime 09/10/2024 76683.59 g 28 kg/m2 160.02 cm 97.7 [degF] Callie Corcoran RN [place] - [facility] [place] Tomo Clases 09/10/2024 11:43:52 Date Recorded Body height Body mass index (BMI) Body weight Body temperature Oxygen saturation Oxygen saturation in Arterial blood by Pulse oximetry Heart rate Systolic blood pressure Diastolic blood pressure Provider Name and Address Organization Details Last Updated DateTime 160.02 cm 29.6 kg/m2 12717.9 8 g 97.9 [degF] 96 % 96 % 81 /min 130 mm[Hg] 64 mm[Hg] Sharla Joseph RN [facility] Slated 11:01:17 Social History Question Answer Notes LastModified by [email or web address] Details LastModified Time Tobacco Smoking Status Current Every Day Smoker Callie Corcoran RN null, [place] [employer] [facility] Slated 09/10/2024 11:42:34 What Is Your Level Of Caffeine Consumption? Occasional What's In Headache Medicine [email or web address] Information not available 01/15/2025 What Is Your Current Pack Years? [email or web address] ars [email or web address] Information not available 01/15/2025 At What Age Did You Start Smoking Tobacco? 10 [email or web address] Information not available 01/15/2025 How Much Tobacco Do You Smoke? 2 PPD [email or web address] Information not available 01/15/2025 How Many Years Have You Smoked Tobacco? 49 Information not available 01/15/2025 Sex: Unknown Functional Status Question Answer Note LastModified by [email or web address] Details LastModified Time Do you use any illicit or recreational drugs? No [email or web address] Information not available 01/15/2025 Do you or have you ever used any other forms of tobacco or nicotine? No [email or web address] Information not available 01/15/2025 What is your level of alcohol consumption? None [email or web address] Information not available 09/10/2024 Mental Status None recorded. Family History Relationship Description Onset Age of this Age Resolved Age Notes LastModified by Organization Details LastModified Time Maternal Grandmother Sarcoma of uterus 100 [email or web address] Not available 01/15 11:17:39 Maternal Grandmother Congestive heart failure 100 [email or web address] Not available 01/15 11:19:03 Mother Familial ovarian cancer 68 [email or web address] Not available 01/15 11:18:23 Mother Kidney disease 74 [email or web address] Not available 01/15 11:20:41 Maternal Aunt Diabetes mellitus [email or web address] Not available 01/15 11:19:45 Maternal Aunt Kidney disease [email or web address] Not available 01/15 11:20:41 Maternal Aunt Fibromyalgia [email or web address] Not available 01/15/2025 11:21:51 Sister Rheumatoid arthritis 45 2 sister s [email or web address] Not available 01/15/2025 11:22:53 Notes:THYROID HX: SISTERS, c ousin Medical History Condition Response NO SIGNIFICANT PAST MEDICAL HISTORY Y CANCER: SPECIFY Y Gynecological HistoryNo gynecological history recorded. Obstetrics History GPAL:G 0 P 0 0 0 0 Immunizations Vaccine Type Date Status Note Provider Nam e and Address Organization Details Recorded Time Pneumococcal conjugate PCV20, polysaccharide [id number] conjugate, adjuvant, PF 5 completed RON Whiting, [facility] [employer] [facility] 01/19/2025 09:05:06 Tdap 5 completed Sonia Toledo RN null, [facility] 01/19/2025 09:05:06 Past Encounters Encounter ID Performer Location Encounter Start Date Encounter Closed Date Diagnosis/Indication Diagnosis SNOMED-CT Code Diagnosis ICD10 Code Diagnosis Note [id number] [facility] [address] [place] [address] 02/20/2021 00:00:00 02/21/2021 08:28:36 [id number] [facility] [address] [place] [address] 03/09/2021 00:00:00 03/14/2021 07:06:59 [id number] [facility] [address] [place] [address] 01/29/2022 00:00:00 01/30/2022 10:40:26 [id number] [facility] [address] [place] [address] 03/15/2022 00:00:00 03/19/2022 08:37:32 [id number] [facility] [address] [place] [address] 03/22/2022 00:00:00 03/26/2022 13:40:11 [id number] [facility] [address] [place] [address] 04/05/2022 00:00:00 04/05/2022 14:26:51 [id number] Amadeo Garcia MD [facility] [address] [place] [address] 08/29/2022 00:00:00 08/29/2022 16:51:48 [id number] Surinder Vargas MD [facility] [address] [place] [address] 09/10/2024 11:27:02 09/10/2024 12:09:40 Bilateral tinnitus 0720068877 102 H93.13 [id number] Nova Gustafson, [employer]NER [facility] [address] [place] [address] 01/15/2025 10:31:55 01/21/2025 16:57:14 Osteoarthritis of right hip joint 1481233037 40263 M16.11 She is currently taking [place] 5/325 mgShe completed PT, utilizes TENs unit, ice, and heatShe is also taking acetaminop hen 4,000-6,00 0 mg 3-4 times today. Discussed this is not safe, recommende d Recurrent urinary tract infection 319049608 N39.0 States she is typically asymptomat ic and would like to have her urine checked at every visit Chronic pr imary low back pain 5980899855 7100 M54.59 G89.29 Has had spinal fusion, requires another but cannot until she quits smoking Bipolar disorder 9391238 4 F31.9 Managed by psych Episodic migraine 085710 1346 32175 G43.909 States that she has been unable to controll these with preventati ve medication s - will discuss in more depth at next appt Requires v accination against Streptococcus pneumoniae 7107453264 Z23 Administra tion of tetanus vaccine 402205364 Z23 Body mass index 25-29 - overweight 440018874 E66.3 Fatigue 03938371 R53.82 Long-term current use of drug therapy 681971959 Z79.899 Health Concerns Section Related Observation LastModified by Organization Detai ls LastModified Time None Recorded Concern Status LastModified by Organization Details LastModified Time None Recorded Advance Directives Directive None Recorded Payers Encounter Date Sequence Insurance Name Policy Number Policy Arguello Covered Member ID Arguello Member ID Guarantor Name 09/10/2024 1 [place] Mahnaz Oumar [id number] Mahnaz G Oumar 09/10/2024 2 [place] OR MEDICARE REPLACEMENT PRIMARY) Mahnaz Bunch Oumar [id number] Mahnaz G Oumar 01/15/2025 1 [place] Mahnaz Oumar [id number] Mahnaz Bunch Oumar 01/15/2025 2 [place]IC[place] REPLACEMENT PRIMARY) Mahnaz G Oumar [id number] Mahnaz G Oumar Notes Date Note Type Note Provider Name [...] with her symptoms. She denies any otalgia. Callie Wakefield, [employer] [address] [facility], [facility] [address], [place], [address], [facility] [employer] 09/10/2024 12:09:13 01/15/2025 text/html Mahnaz Oseguera i s a 59 year old female patient here today to establish care. She is due for an annual wellness visit. She was previously see Dr. Neil Galvez. 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 She is see Dr. Watson through [facility]. She has a history of migraines. She does take butalbital PRN. She states she requires this approximately 5 times per month. She states that her migraines start at the base of her skull that radiate to the top of her head.She does have a history of seizures, she does take gabapentin for this. Her last seizure was 5 years ago, no longer seeing neurology. She does have chronic lower back pain, she did have a spinal fusion in 1999 and needs another but the surgeon won't do until she stops smoking. She does take cyclobenzaprine occasionally for this pain. She also uses a TENS unit, ice, and heat. Did complete PT. She has chronic pain of the right hip, XR 12/08/24 resulted moderate osteoarthritis. She would like to see ortho for this. Chronic recurring UTIs. Flu shot: OVID vaccines: x 2020Tdap: 01/15/25Pneumonia: PCV20 01/15/25Mammogram:WWE:C olonoscopy: Unable to complete health history - pt needed to leave. Will complete at next appt Nova Gustafson, TYLER [address] [facility], [facility] [address], [place], [address], [place] [facility] Slated 01/15/2025 14:06:40 OBGyn Episode No OBEpisode recorded.
--- NOTE | 2025-01-30 18:41 | PC.NURSE ---
C-collar applied per Dr. Wolfe verbal order. Unable to get EKG at this time d/t pt. being unable to sit still.
[2025-01-30 18:46] LABS: Alveolar/Arterial O2 Gradient 44.4 mmHg; Base Excess ABG -3.3 mEq/l (+/-2.0); Fractional Inspired Oxygen 21 %; HCO3 ABG 21.4 mEq/l (22.0-26.0); Oxygen Content ABG 17.5 %vol (16.0-22.0); Oxygen Saturation ABG 90.9 % (95.0-100.0); Oxyhemoglobin 88.4 % THb (90.0-100.0); PCO2 ABG 37.3 mmHg (35.0-45.0); PO2 ABG 60.7 mmHg (80.0-100.0); PO2 FiO2 Ratio Arterial Blood 2.89 %; Total Hemoglobin 14.1 g/dL (12.0-18.0); pH ABG 7.376 (7.350-7.450)
[2025-01-30] MEDS: SODIUM CHLORIDE 0.9% IV 2,000 ML 999 ML IV CONT (18:47)
[2025-01-30 18:48] LABS: Device ROOM AIR; Modified Allen's Test Pass; Site Drawn LEFT RADIAL
--- NOTE | 2025-01-30 18:49 | PC.NURSE ---
Pt lives with her mom and was in her room yelling for her and mom reports she went in room and found her laying on the floor sliding in and out from under her bed. Mom reports she got RX for [place] saturday quanitity of 80 and fioricet saturday #50 fioricet on Saturday #50 and all bottles are empty. Mom reports pt did not take meds in attempt to harm self but states she's always looking for that freakin high.
[2025-01-30 18:54] LABS: Acetaminophen 72 ug/mL (10-30); Alanine Aminotransferase 39 U/L (6-35); Albumin Level 4.3 g/dL (3.5-5.1); Alkaline Phosphatase 103 U/L (38-126); Ammonia < 9 umol/L (9-30); Anion Gap 9 mmol/L (4-12); Aspartate Amino Transferase 60 U/L (14-36); Blood Urea Nitrogen 12 mg/dL (7-17); Calcium 8.9 mg/dL (8.4-10.2); Carbon Dioxide 23 mmol/L (22-30); Chloride 107 mmol/L (98-107); Creatine Kinase 114 U/L (30-135); Estimated Glomerular Filt Rate > 60; Ethanol < 10 mg/dL (<10); Glucose 134 mg/dL (65-110); Potassium 3.1 mmol/L (3.4-5.0); Salicylate < 1.0 mg/dL (2-20); Sodium 139 mmol/L (137-145)
--- NOTE | 2025-01-30 18:54 | PC.NURSE ---
Pt. continues to roll to her bath and then to her stomach yelling no, no, no! Pt. is not redirectable. Pt. dose not follow commands. As a result, unable to get any imaging at this time.
[2025-01-30 19:03] LABS: Amphetamine Screen Urine Negative (Negative); Barbiturate Screen Urine Positive (Negative); Benzodiazepines Screen Urine Negative (Negative); Cannabinoid Screen Urine Negative (Negative); Cocaine Screen Urine Negative (Negative); Methadone Screen Urine Negative (Negative); Opiate Screen Urine Positive (Negative); Phencyclidine Screen Urine Negative (Negative)
[2025-01-30 19:06] LABS: Troponin I 0.017 ng/mL (0.000-0.034)
[2025-01-30 19:07] LABS: Add Urine Microscopic? YES; Appearance Urine Cloudy (Clear); Bacteria Urine 4+ /hpf; Bilirubin Urine Negative (Negative); Blood Urine Negative (Negative); Color Urine Yellow (Yellow); Glucose Urine UA Negative (Negative); Ketones Urine Trace mg/dL (Negative); Leukocyte Esterase Ur 2+ LEU/UL (Negative); Need Manual Microscopic Reviewed; Nitrate Urine Negative (Negative); Protein Urine 1+ mg/dL (Negative); Specific Grav Ur 1.029 (1.001-1.035); Squamous Epithelial Cell Urine None Seen /hpf (Few); WBC Urine >100 /hpf (0-3)
[2025-01-30 19:07] LABS: Basophils Percent Auto 0.5 % (0.2-1.2); Eosinophils Absolute Auto 0.1 K/mm3 (0-0.3); Eosinophils Percent Auto 0.9 % (0-4.4); Hematocrit 40.9 % (37.0-47.0); Hemoglobin 13.6 g/dL (12.0-15.0); Immature Granulocyte Absolute 0.04 K/mm3 (0.00-0.031); Immature Granulocyte Percent A 0.5 % (0-0.5); Lymphocytes Absolute Auto 1.22 K/mm3 (0.9-3.2); Lymphocytes Percent Auto 14.2 % (18.3-44.2); Mean Corpuscular HGB Conc 33.3 g/dl (32-36); Mean Corpuscular Hemoglobin 37.1 pg (26-34); Mean Corpuscular Volume 111.4 fl (80-100); Mean Platelet Volume 9.1 fl (7.4-10.4); Monocytes Percent Auto 11.8 % (2.6-8.5); Neutrophils Absolute Auto 6.2 K/mm3 (1.3-6.7); Neutrophils Percent Auto 72.1 % (45.5-73.1); Platelet Count Result 323 k/mm3 (150-375); Red Blood Count 3.67 M/mm3 (4.2-5.4); Red Cell Distribution Width 14.1 % (11.5-14.5); White Blood Count 8.6 K/mm3 (4.5-10.0)
[2025-01-30 19:17] LABS: INR 0.9; Prothrombin Time 12.9 Seconds (11.1-14.7)
--- NOTE | 2025-01-30 19:29 | PC.NURSE ---
Assumed care of patient after receiving report from RON Sazn @ [phone]
[2025-01-30 19:47] LABS: Platelet Estimate Adequate (Adequate); Schistocytes None Seen
[2025-01-30 19:48] LABS: Band Neutrophils Percent 0 % (0-6); Macrocytosis 1+ (NORMAL)
--- NOTE | 2025-01-30 20:15 | PC.NURSE ---
Addendum entered by Libra Hewitt RN 01/30/25 20:51: Madai at poison control Original Note: Spoke with poison control who recommends starting Acetadote and repeating a tylenol level in 2 hours from initial level. Also recommends diazepam over Ativan for benzos for pt thrashing around in bed, d/t its better coverage for overdoses.
[2025-01-30] MEDS: ERTAPENEM 1 GM/NS 50 ML 1 GM/50 ML BAG IVPB (20:44)
[2025-01-30] MEDS: diazePAM INJ (*CRX) 10 MG/2 ML SYRINGE 5 MG IV PUSH (20:44)
[2025-01-30] MEDS: diazePAM INJ (*CRX) 10 MG/2 ML SYRINGE 2.5 MG IV PUSH (21:23)
[2025-01-30] MEDS: HYDROmorphone HCL INJ (*CRX) 2 MG/ML VIAL 1 MG IV PUSH (21:35)
[2025-01-30] MEDS: LORazepam INJ (*CRX) 2 MG/ML VIAL IV PUSH (21:44)
[2025-01-30] MEDS: HALOPERIDOL LACTATE 5 MG/ML VIAL 2.5 MG IV PUSH (22:00)
[2025-01-30] MEDS: ACETYLCYSTEINE IVPB ×2 (22:19→23:38)
[2025-01-30] MEDS: DEXTROSE 5% IVPB ×2 (22:19→23:38)
[2025-01-30] MEDS: WATER IVPB ×2 (22:19→23:38)
[2025-01-30] MEDS: diphenhydrAMINE HCl INJ 50 MG/ML VIAL 25 MG IV PUSH (22:23)
[2025-01-30 22:29] LABS: Alanine Aminotransferase 38 U/L (6-35); Alkaline Phosphatase 95 U/L (38-126); Aspartate Amino Transferase 70 U/L (14-36); Bilirubin,Total 0.9 mg/dL (0.2-1.3); Salicylate < 1.0 mg/dL (2-20)
[2025-01-30 22:32] LABS: INR 0.9; Prothrombin Time 13.1 Seconds (11.1-14.7)
--- NOTE | 2025-01-30 22:38 | PC.NURSE ---
Patient taken to CT scan around 2109. Pt completely restless in CT. Per EDP vorb patient to receive 2.5mg valium. Pt still restless @ 2122 Pt was repeatedly yelling out Ouch. It hurts Per EDP vorb pt to receive 2mg dilaudid. Pt still restless at this time and unable to obtain scan. Per EDP pt to receive 2.5mg haldol and 2.5mg benadryl. Pt still completely restless at this time and unable to obtain CT scans. EDP made aware and pt was then brought back to ED room 9. @ 2239 per [facility]ORB EDP C Collar is to be removed.
--- NOTE | 2025-01-30 23:21 | PC.NURSE ---
Per poison control, ALT & AST levels should be rechecked prior to 3rd bag of Acetylcysteine. If labs are greater than 100, the 3rd bag of acetylcysteine should be given at 12.5mg/kg. PARISA Gage made aware.
[2025-01-30] MEDS: OLANZapine 10 MG INJ VIAL IM (23:29)
[2025-01-30] MEDS: WATER, STERILE FOR INJECTION 10 ML VIAL XX (23:40)
[2025-01-31] VITALS (40 sets, daily range): BP systolic 93–168; BP diastolic 47–97; PULSE 54–108; RESP 12–30; TEMP 36.7–37.6; O2SAT 95–100; BMI 27.3
[2025-01-31 00:01] LABS: Lactic Acid Reflex 1.6 mmol/L (0.7-2.0)
[2025-01-31 00:27] LABS: Creatine Kinase 874 U/L (30-135)
[2025-01-31 00:45] LABS: Alanine Aminotransferase 36 U/L (6-35); Aspartate Amino Transferase 48 U/L (14-36)
[2025-01-31] MEDS: DEXMEDETOMIDINE IVPB (00:55)
[2025-01-31] MEDS: SODIUM CHLORIDE 0.9% IVPB (00:55)
[2025-01-31] MEDS: SODIUM CHLORIDE 0.9% IV 1,000 ML 999 ML IV CONT (01:01)
[2025-01-31] MEDS: dexmedeTOMIDine 400 MCG/100 ML 400 MCG/100 ML BAG IV CONT (03:15)
[2025-01-31 03:30] LABS: Acetaminophen < 10 ug/mL (10-30); Alanine Aminotransferase 36 U/L (6-35); Aspartate Amino Transferase 64 U/L (14-36)
--- NOTE | 2025-01-31 03:48 | PM.IMHP ---
H&P: HPI History of Present Illness Date/Time: 01/31/25 03:48 Chief Complaint: Unresponsive Narrative: 59-year-old female with a past medical history of chronic tobacco abuse, COPD, urothelial cancer, bipolar disorder, schizophrenia, chronic opiate dependence with history of abuse, and multiple prior suicide attempt on both home [place] and Fioricet who presented to the ER from home via EMS due to being found unresponsive. According to EMS report patient's mother heard the patient yelling out for her. When her mother arrived to the room she found the patient laying on the floor sliding in out from under her bed. The patient had just had her prescription for [place] #80 tablets filled on the and Fioricet #50 filled on the the patient's bottles were empty. Patient's mother reports that the patient did not take the medications in attempt to harm herself. She states that the patient is always ?looking for that freaking high.? The patient is unable to verify intent of medication ingestion due to patient's altered mental status. The patient was intermittently calling out for her mother in the ER. Then once she received some sedation medications although she did not calm down she started crying out saying ow over and over. The patient was restless but unable to tell staff where she is hurting. She had multiple areas of bruises to her lower extremities bilaterally. The patient does respond to her name but is uncooperative and we were unable to redirect the patient. She was placed in soft restraints in the ER in given multiple medications for sedation including a total of 7.5 mg of diazepam, 25 mg of IV Benadryl, 2.5 mg of IV Haldol and 5 mg of lorazepam in individual doses. She even received a dose of Zyprexa. Despite these multiple medications the patient remained quite agitated and uncooperative. Subsequently and attempt to it imaging studies that were needed the patient was given a loading dose of Precedex with relatively good results. The patient went down for imaging studies which I personally reviewed and interpreted. No evidence of acute intercranial process noted. Some chronic findings of right-sided hydronephrosis, and a moderate distended bladder at the time of my review. Radiologic interpretation was pending at the time of my evaluation. At the time my evaluation patient had a large tender bladder suprapubic region and I suspected that she had a markedly distended bladder. Bladder scan confirmed greater than 600 mL. Rich catheter was placed while of the bedside and patient had immediate return of 1.1 L of urine. Repeat CK was obtained which demonstrated rising levels consistent with developing rhabdomyolysis likely due to the patient's agitation. Straight cath UA had demonstrated 2+ esterase greater than 100 wbc's and 4+ bacteria given agitation and altered mental status could not rule out underlying encephalopathy due to infection and patient received 1 dose of ertapenem. She did not receive the doses of Geodon and Rocephin that are listed in the MAR. patient's initial Tylenol level was elevated at 72. Poison Control was notified and the patient was started on N-acetylcysteine. Repeat Tylenol level after 2nd bag of N-acetylcysteine demonstrated Tylenol level less than 10. The entirety of HPI was obtained from review of past medical records, physician/nursing report and EMS report. Patient was unable to provide any history. The patient had previously reported allergy to Zyprexa and Haldol. However patient received doses of both of these medications in the ER without evidence of angioedema that she had reported many years ago. Review of Systems Review of Systems: Unobtainable due to the patient's mentation [facility] Past Medical History Medical History (Updated 01/31/25 @ 05:07 by Asia Go DO) Bipolar mood disorder Methamphetamine use GERD (gastroesophageal reflux disease) Major depression with psychotic features Carpal tunnel syndrome of right wrist Carcinoma of right ureter SVT (supraventricular tachycardia) Hepatitis C Alcohol abuse Schizoaffective disorder [place] toxicity Due to overdose/suicide attempt Requiring temporary dialysis Tobacco dependence Chronic obstructive pulmonary disease Distal radial fracture December 2022 Ankle fracture, lateral malleolus, closed December 2022 Seizure Migraine Anxiety Suicide attempt Multiple hospitalizations for suicide attempt with history of cutting Surgical History Surgical History (Updated 01/31/25 @ 04:41 by Asia Go DO) History of right salpingo-oophorectomy Due to ectopic Status post lumbar discectomy (~1999) L5-S1 Status post open reduction with internal fixation of fracture Cervical spine fracture History of ureterostomy History of kidney surgery H/O dilation and curettage H/O tubal ligation History of tonsillectomy H/O foot surgery 2021 X2 H/O: hysterectomy 2000 hysterectomy with left oophorectomy Family History Family History Father Alcoholism Grandparent Diabetes mellitus Hypertension Heart disease Mother Kidney disease Grandparent Alcoholism Social History Social History (Updated 01/31/25 @ 04:24 by Asia Go DO) Social History: Surrogate medical decision maker: Landy Silva, . Code status: Full code. Smoking packs per day: 1.5 Smoking cigarettes per day: 30.0 Years smoked: 45 Smoking pack-years: 67.50 Smoking status: Current every day smoker Second hand tobacco smoke exposure: No Alcohol intake: unknown Substance use: current Substance use type: painkillers and prescription drug Other substance usage details: Fioricet and [place] Last use: 01/30/2025 Lack of Transportation: No Lack of Food: Never True Current Housing: I Have Housing Concerned About Future Housing: No Difficulty Paying Gas/Electric Bills: No Difficulty Paying for Meds: No Currently Unemployed: No Education: High School Diploma/GED Difficulty w/ Childcare or Family Care: No Living arrangements: with family Additional living arrangements comments: Lives with mother in [place]. Occupation/Education: unemployed Additional occupation/education comments: Disabled. Spiritual care concerns: No Meds Home Medications and Allergies Home Medications ?Medication ?Instructions ?Recorded ?Confirmed ?Type benztropine 2 mg tablet 2 mg PO BID PRN involuntary 04/18/22 07/26/24 History movement prazosin 5 mg capsule 10 mg PO HS 04/18/22 07/26/24 History ondansetron HCl 4 mg tablet 4 mg PO TID PRN Nausea And Vomiting 11/22/22 07/26/24 History chlorpromazine 100 mg tablet 100 mg PO HS 03/27/23 07/26/24 History buspirone 15 mg tablet 15 mg PO TID 03/28/23 07/26/24 History gabapentin 300 mg capsule 300 mg PO TID 05/25/23 07/26/24 History sertraline 50 mg tablet (Zoloft) 100 mg PO DAILY 06/06/23 07/26/24 History xhqsavvblw-ikhgcpcaaxzur-obyrlota 1 tablet PO Q8H PRN Headache 07/26/24 07/26/24 History 50 mg-325 mg-40 mg tablet cyclobenzaprine 10 mg tablet 10 mg PO HS 07/26/24 07/26/24 History sulfamethoxazole 800 1 tablet PO Q12H #10 tabs 07/26/24 Rx mg-trimethoprim 160 mg tablet (Bactrim DS) Allergies Allergy/AdvReac Type Severity Reaction Status Date / Time grass pollen Allergy Intermediate Hives Verified 11/15/24 13:39 amoxicillin (From Augmentin) Allergy Hives Verified 11/15/24 13:39 asenapine (From Saphris) Allergy Hives Verified 11/15/24 13:39 bacitracin (From Neosporin Allergy Rash Verified 11/15/24 13:39 ([id number])) clavulanic acid (From Allergy Hives Verified 11/15/24 13:39 Augmentin) erythromycin base Allergy Hives Verified 11/15/24 13:39 latex Allergy Rash Verified 11/15/24 13:39 neomycin (From Neosporin Allergy Rash Verified 11/15/24 13:39 ([id number])) polymyxin B (From Neosporin Allergy Rash Verified 11/15/24 13:39 ([id number])) risperidone (From Risperdal) Allergy Hives Verified 11/15/24 13:39 tramadol (From Ultram) Allergy Rash Verified 11/15/24 13:39 ciprofloxacin AdvReac Vomiting Verified 11/15/24 13:39 ibuprofen AdvReac Vomiting Verified 11/15/24 13:39 Steriod AdvReac Agitated Uncoded 11/15/24 13:39 Vital Signs Vital Signs - 24 hr 01/30/25 18:29 01/30/25 19:22 01/30/25 19:28 Temperature 98.1 F Pulse Rate 86 93 94 Respiratory Rate 22 H 17 Blood Pressure 115/74 Pulse Oximetry 99 96 01/30/25 20:45 01/30/25 21:00 01/30/25 21:15 Temperature Pulse Rate 101 H 98 98 Respiratory Rate Blood Pressure 147/72 H 142/76 H 115/94 H Pulse Oximetry 97 96 01/30/25 21:30 01/30/25 21:45 01/30/25 23:45 Temperature Pulse Rate 100 102 H 98 Respiratory Rate 19 12 17 Blood Pressure 131/99 H 132/90 132/74 Pulse Oximetry 95 95 95 01/31/25 00:19 01/31/25 00:34 01/31/25 00:49 Temperature Pulse Rate 101 H 108 H 103 H Respiratory Rate 17 24 H 19 Blood Pressure 122/76 152/84 H 132/73 Pulse Oximetry 96 96 96 01/31/25 00:55 01/31/25 01:04 01/31/25 01:10 Temperature Pulse Rate 98 92 87 Respiratory Rate 21 H 20 20 Blood Pressure 137/73 Pulse Oximetry 96 01/31/25 01:30 01/31/25 02:04 01/31/25 03:04 Temperature Pulse Rate 85 97 88 Respiratory Rate 19 20 12 Blood Pressure 135/81 145/93 H 112/60 Pulse Oximetry 100 99 97 01/31/25 03:15 01/31/25 03:35 Temperature Pulse Rate 91 88 Respiratory Rate 15 19 Blood Pressure 112/60 Pulse Oximetry 97 Exam Narrative: Weight 82.6 kg Const: Other: Disheveled, agitated, appears older than stated age, acutely ill-appearing HENMT: Other: Mucous membranes are dry, edentulous in upper and lower jaw, lips are peeling, head is normocephalic atraumatic Eyes: Other: Pupils are equal and reactive, no scleral icterus, no conjunctival pallor, conjugate gaze Neck: Other: No JVD, no lymphadenopathy Resp: Other: Decreased breath sounds bilaterally, no increased work of breathing Cardio: Other: Regular rate, regular rhythm GI: Other: Is soft, weeks is is normoactive bowel sounds, is firm distended bladder : Other: Firm distended bladder suprapubic to just below the umbilicus Skin: Other: Numerous bruises bilateral lower extremities right greater than left is Neuro: Other: Is patient is alert unoriented to person only she refuses answer questions but is uncooperative with exam, moves all extremities equally, no localizing neurologic deficits noted but exam limited Extrem: Other: No clubbing, cyanosis or edema, 5/5 strength bilateral upper and lower extremities bruising as noted above Psych: Other: Agitated, aggressive, poor judgment and insight H&P: Results Labs Labs: Short CBC 01/30/25 Range/Units 18:59 WBC 8.6 (4.5-10.0) K/mm3 Hgb 13.6 (12.0-15.0) g/dL Hct 40.9 (37.0-47.0) % Plt Count 323 (150-375) k/mm3 [facility] 01/30/25 18:35 Sodium 139 Potassium 3.1 L Chloride 107 Carbon Dioxide 23 BUN 12 Creatinine 0.62 L Glucose 134 H Calcium 8.9 Cardiac Enzymes 01/30/25 01/30/25 Range/Units 18:35 23:41 Total Creatine Kinase 114 874 H (30-135) U/L Troponin I 0.017 (0.000-0.034) ng/mL Liver Function 01/30/25 01/30/25 01/30/25 Range/Units 18:35 22:16 23:41 Total Bilirubin 1.0 0.9 (0.2-1.3) mg/dL AST 60 H 70 H 48 H (14-36) U/L ALT 39 H 38 H 36 H (6-35) U/L Alkaline Phosphatase 103 95 (38-126) U/L Albumin 4.3 (3.5-5.1) g/dL 01/31/25 Range/Units 03:13 Total Bilirubin (0.2-1.3) mg/dL AST 64 H (14-36) U/L ALT 36 H (6-35) U/L Alkaline Phosphatase (38-126) U/L Albumin (3.5-5.1) g/dL Urine 01/30/25 Range/Units 18:35 Urine Color Yellow (Yellow) Urine Appearance Cloudy H (Clear) Urine pH 5.0 (5.0-9.0) Ur Specific [place] 1.029 (1.001-1.035) Urine Protein 1+ H (Negative) mg/dL Urine Glucose (UA) Negative (Negative) mg/dL Laboratory Tests 01/30/25 18:59 01/30/25 18:35 01/30/25 01/30/25 01/30/25 18:34 18:35 18:43 WBC RBC Hgb Hct MCV MCH MCHC RDW Plt Count MPV Immature Gran % (Auto) Neut % (Auto) Lymph % (Auto) [place] % (Auto) Eos % (Auto) Baso % (Auto) Lymph # (Auto) [place] # (Auto) Eos # (Auto) Baso # (Auto) Abs Immat Gran (auto) Absolute Neuts (auto) Absolute Nucleated RBC Band Neutrophils % Nucleated RBC % Platelet Estimate Macrocytosis Schistocytes PT INR APTT Puncture Site Left radial ABG pH 7.376 ABG pCO2 37.3 ABG pO2 60.7 L ABG PO2/FiO2 Ratio 2.89 ABG HCO3 21.4 L ABG O2 Saturation 90.9 L ABG O2 Content 17.5 ABG Base Excess -3.3 A-a Gradient 44.4 Oxyhemoglobin 88.4 L Total Hemoglobin 14.1 O2 Delivery Device Room air O2 Liters/Min 0.0 FiO2 21 Sodium 139 Potassium 3.1 L Chloride 107 Carbon Dioxide 23 Anion Gap 9 BUN 12 Creatinine 0.62 L Estim Creat Clear Calc Not Reportable Estimated GFR > 60 Glucose 134 H Lactic Acid Calcium 8.9 Magnesium 2.0 Total Bilirubin 1.0 AST 60 H ALT 39 H Alkaline Phosphatase 103 Ammonia < 9 L Total Creatine Kinase 114 Troponin I 0.017 Total Protein 8.0 Albumin 4.3 TSH 1.380 Urine Color Yellow Urine Appearance Cloudy H Urine pH 5.0 Ur Specific [place] 1.029 Urine Protein 1+ H Urine Glucose (UA) Negative Urine Ketones Trace H Ur Blood (Man) Negative Urine Nitrate Negative Urine Bilirubin Negative Urine Urobilinogen 1.0 Add Ur Microanalysis Reviewed Leukocyte Esterase Rfl 2+ H Urine RBC 6-10 H Urine WBC >100 H Ur Squamous Epith Cells None seen Urine Bacteria 4+ H Urine Casts 6-10 Nasal MRSA (PCR) Salicylates < 1.0 L Urine Opiates Screen Positive A Urine Methadone Screen Negative Acetaminophen 72 H Ur Barbiturates Screen Positive A Ur Phencyclidine Scrn Negative Ur Amphetamine Screen Negative U Benzodiazepines Scrn Negative Urine Cocaine Screen Negative U Cannabinoids Screen Negative Ethyl Alcohol < 10 01/30/25 01/30/25 01/30/25 18:59 22:16 23:41 WBC 8.6 RBC 3.67 L Hgb 13.6 Hct 40.9 MCV 111.4 H MCH 37.1 H MCHC 33.3 RDW 14.1 Plt Count 323 MPV 9.1 Immature Gran % (Auto) 0.5 Neut % (Auto) 72.1 Lymph % (Auto) 14.2 L [place] % (Auto) 11.8 H Eos % (Auto) 0.9 Baso % (Auto) 0.5 Lymph # (Auto) 1.22 [place] # (Auto) 1.0 H Eos # (Auto) 0.1 Baso # (Auto) 0.0 Abs Immat Gran (auto) 0.04 H Absolute Neuts (auto) 6.2 Absolute Nucleated RBC 0.000 Band Neutrophils % 0 Nucleated RBC % 0.0 Platelet Estimate Adequate Macrocytosis 1+ Schistocytes None seen PT 12.9 13.1 INR 0.9 0.9 APTT 28.0 Puncture Site ABG pH ABG pCO2 ABG pO2 ABG PO2/FiO2 Ratio ABG HCO3 ABG O2 Saturation ABG O2 Content ABG Base Excess A-a Gradient Oxyhemoglobin Total Hemoglobin O2 Delivery Device O2 Liters/Min FiO2 Sodium Potassium Chloride Carbon Dioxide Anion Gap BUN Creatinine Estim Creat Clear Calc Estimated GFR Glucose Lactic Acid 1.6 Calcium Magnesium Total Bilirubin 0.9 AST 70 H 48 H ALT 38 H 36 H Alkaline Phosphatase 95 Ammonia Total Creatine Kinase 874 H Troponin I Total Protein Albumin TSH Urine Color Urine Appearance Urine pH Ur Specific [place] Urine Protein Urine Glucose (UA) Urine Ketones Ur Blood (Man) Urine Nitrate Urine Bilirubin Urine Urobilinogen Add Ur Microanalysis Leukocyte Esterase Rfl Urine RBC Urine WBC Ur Squamous Epith Cells Urine Bacteria Urine Casts Nasal MRSA (PCR) Salicylates < 1.0 L Urine Opiates Screen Urine Methadone Screen Acetaminophen Ur Barbiturates Screen Ur Phencyclidine Scrn Ur Amphetamine Screen U Benzodiazepines Scrn Urine Cocaine Screen U Cannabinoids Screen Ethyl Alcohol 01/31/25 01/31/25 03:13 04:09 WBC RBC Hgb Hct MCV MCH MCHC RDW Plt Count MPV Immature Gran % (Auto) Neut % (Auto) Lymph % (Auto) [place] % (Auto) Eos % (Auto) Baso % (Auto) Lymph # (Auto) [place] # (Auto) Eos # (Auto) Baso # (Auto) Abs Immat Gran (auto) Absolute Neuts (auto) Absolute Nucleated RBC Band Neutrophils % Nucleated RBC % Platelet Estimate Macrocytosis Schistocytes PT INR APTT Puncture Site ABG pH ABG pCO2 ABG pO2 ABG PO2/FiO2 Ratio ABG HCO3 ABG O2 Saturation ABG O2 Content ABG Base Excess A-a Gradient Oxyhemoglobin Total Hemoglobin O2 Delivery Device O2 Liters/Min FiO2 Sodium Potassium Chloride Carbon Dioxide Anion Gap BUN Creatinine Estim Creat Clear Calc Estimated GFR Glucose Lactic Acid Calcium Magnesium Total Bilirubin AST 64 H ALT 36 H Alkaline Phosphatase Ammonia Total Creatine Kinase Troponin I Total Protein Albumin TSH Urine Color Urine Appearance Urine pH Ur Specific [place] Urine Protein Urine Glucose (UA) Urine Ketones Ur Blood (Man) Urine Nitrate Urine Bilirubin Urine Urobilinogen Add Ur Microanalysis Leukocyte Esterase Rfl Urine RBC Urine WBC Ur Squamous Epith Cells Urine Bacteria Urine Casts Nasal MRSA (PCR) Pending Salicylates Urine Opiates Screen Urine Methadone Screen Acetaminophen < 10 L Ur Barbiturates Screen Ur Phencyclidine Scrn Ur Amphetamine Screen U Benzodiazepines Scrn Urine Cocaine Screen U Cannabinoids Screen Ethyl Alcohol CT brain without contrast, CT of chest abdomen pelvis, chest x-ray oral is personally reviewed and interpreted. Per stat rad report dependent atelectasis the lung, cardiomegaly call edema no solid acute injury no free fluid is abdomen, gallbladder markedly distended, hepatomegaly with steatosis. CT of the head no acute intercranial process. Cervical spine no acute fracture or subluxation is Assessment and Plan Assessment and plan (1) Overdose on Tylenol: Qualifiers: Encounter type: initial encounter Injury intent: undetermined intent Qualified Code(s): T39.1X4A - Poisoning by 4-Aminophenol derivatives, undetermined, initial encounter Code(s): T39.1X1A - Poisoning by 4-Aminophenol derivatives, accidental (unintentional), initial encounter Status: Acute (2) Intentional barbiturate overdose: Code(s): T42.3X2A - Poisoning by barbiturates, intentional self-harm, initial encounter Status: Acute (3) Opiate overdose: Code(s): T40.601A - Poisoning by unspecified narcotics, accidental (unintentional), initial encounter Status: Acute (4) Acute urinary retention: Code(s): R33.8 - Other retention of urine Status: Acute (5) Acute alteration in mental status: Code(s): R41.82 - Altered mental status, unspecified Status: Acute (6) Abnormal urinalysis: Code(s): R82.90 - Unspecified abnormal findings in urine Status: Acute (7) Non-traumatic rhabdomyolysis: Code(s): M62.82 - Rhabdomyolysis Status: Acute (8) Acute hypokalemia: Code(s): E87.6 - Hypokalemia Status: Acute (9) Macrocytic anemia: Code(s): D53.9 - Nutritional anemia, unspecified Status: Acute (10) Tobacco dependence: Code(s): F17.200 - Nicotine dependence, unspecified, uncomplicated Status: Acute (11) Chronic obstructive pulmonary disease: Qualifiers: COPD type: unspecified COPD Qualified Code(s): J44.9 - Chronic obstructive pulmonary disease, unspecified Code(s): J44.9 - Chronic obstructive pulmonary disease, unspecified Status: Acute (12) GERD (gastroesophageal reflux disease): Qualifiers: Esophagitis presence: esophagitis presence not specified Qualified Code(s): K21.9 - Gastro-esophageal reflux disease without esophagitis Code(s): K21.9 - Gastro-esophageal reflux disease without esophagitis Status: Acute Plan Patient has polysubstance overdose with the Tylenol/opiates and barbiturates with indeterminate is intent. The patient likely overdosed in an attempt to get high but unable to determine for sure. The patient was started on N-acetylcysteine per poison Control recommendations. She received IV fluid hydration. She received benzodiazepines without much improvement in her symptoms so IV Precedex was initiated. Patient had improvement in agitation. Will continue Precedex infusion. Patient did have urinary retention likely is secondary effective overdose. Rich catheter is been placed and patient had release of over 1.1 L of urine immediately. UA was abnormal will continue antibiotic therapy until culture results return. UA could be consistent with UTI but the patient does not have a white count or fever to suggest acute infection. But in the setting of encephalopathy that is likely toxic and metabolic in nature however cannot rule out acute underlying psychosis due to patient's underlying psychiatric illness. But will treat for possible infection regardless. Will continue antibiotic therapy. Patient does have rhabdomyolysis likely due to her psychomotor agitation. Will continue IV fluids at 150 mL an hour. Will monitor strict I&O's. Will repeat CK and electrolyte panel after electrolyte supplementation. Patient did have mild hypokalemia. Will give 40 mEq potassium rider prior to ordering repeat labs. 65 minute spent in critical care activities Due to a high probability of clinically significant, life threatening deterioration, the patient required my highest level of preparedness to intervene emergently and I personally spent this critical care time directly and personally managing the patient. This critical care time included obtaining a history; examining the patient; pulse oximetry; ordering and review of studies; arranging urgent treatment with development of a management plan; evaluation of patient's response to treatment; frequent reassessment; and discussions with other providers. It was exclusive of separately billable procedures and treating other patients and teaching time. Please see Assessment and Plan section and the rest of the note for further information on patient assessment and treatment. Quality VTE Prophylaxis VTE prophylaxis: mechanical ordered (SCDs) Hospitalist BURT Advance Care Plan I have confirmed that the patient's Advanced Care Plan is present, code status is documented, or surrogate decision maker is listed in patient medical record.: Yes Medication Reconciliation I have utilized all available resources to obtain, update and review the patients current medications (includes all prescriptions, OTC, herbals, cannabis, and nutritional supplements).: Yes
[2025-01-31] MEDS: DEXTROSE 5% IVPB (03:49)
[2025-01-31] MEDS: ACETYLCYSTEINE IVPB (03:49)
--- NOTE | 2025-01-31 04:11 | PC.NURSE ---
Per Marion with Poison control, AST and ALT need to be repeated 2 hours before the last bag of acetylcysteine is completed ([id number])
--- NOTE | 2025-01-31 04:55 | ADMGEN ---
This patient, Mahnaz Oseguera, was admitted to Intensive Care Unit-5. Patient/family oriented to hospital policies and general routines including ID bracelet, bed and alarms, visiting hours, pain management, procedures, bathroom and other care routines, personal items, smoking policy, room service/diet, and visiting hours. Information on how to activate the Rapid Response Team has been discussed. Patient/Family are encouraged to report perceived risks to care and to ask questions if they do not understand what they are told or what they should do.
[2025-01-31] MEDS: POTASSIUM CHLORIDE INJ 40 MEQ in SODIUM CHLORIDE 0.9% IV 500 ML 130 MEQ IVPB ×2 (05:24→18:53)
--- NOTE | 2025-01-31 06:30 | PC.NURSE ---
Greater than 10% change in weight from ED documentation to ICU arrival. Discussed with Jose in pharmacy. IV infusion pump and order changed to reflect current weight.
[2025-01-31 06:47] LABS: MRSA (PCR) DETECTED (NOT DETECTE)
[2025-01-31] MEDS: PANTOPRAZOLE SODIUM IV 40 MG VIAL IV PUSH (08:39)
[2025-01-31] MEDS: NICOTINE (*PBKC) 21 MG PATCH 1 PATCH TRANSDERM (08:39)
--- NOTE | 2025-01-31 08:45 | WPDCNINT ---
Assessment and Plan Assessment and plan (1) Agitation: Code(s): R45.1 - Restlessness and agitation Status: Inactive Assessment and Plan: Patient has a baseline history of schizophrenia and now comes with acute agitation which is likely multifactorial and combination of polypharmacy with side effects, drug overdose, baseline psychiatric illness and possibly UTI Minimize sedative use. Were home medications on hold Continue Precedex infusion Continue physical restraints for patient and staff safety at this time Will have Psychiatry evaluate patient once medical issues involved One-to-one sitter Treatment of medical problems as below (2) Schizophrenia: Code(s): F20.9 - Schizophrenia, unspecified Status: Acute Assessment and Plan: Currently her schizophrenia medications on hold patient is on Precedex. (3) GERD (gastroesophageal reflux disease): Qualifiers: Esophagitis presence: esophagitis presence not specified Qualified Code(s): K21.9 - Gastro-esophageal reflux disease without esophagitis Code(s): K21.9 - Gastro-esophageal reflux disease without esophagitis Status: Acute Assessment and Plan: Continue PPI (4) Overdose on Tylenol: Qualifiers: Encounter type: initial encounter Injury intent: undetermined intent Qualified Code(s): T39.1X4A - Poisoning by 4-Aminophenol derivatives, undetermined, initial encounter Code(s): T39.1X1A - Poisoning by 4-Aminophenol derivatives, accidental (unintentional), initial encounter Status: Acute Assessment and Plan: Continue N-acetylcysteine infusion Monitor LFTs acetaminophen level has already decreased to less than 10 Poison control consulted (5) Urinary tract infection: Code(s): N39.0 - Urinary tract infection, site not specified Status: Acute Assessment and Plan: Urine culture ordered and sent Continue ertapenem (6) Acute urinary retention: Code(s): R33.8 - Other retention of urine Status: Acute Assessment and Plan: Status post Rich catheter placement (7) Acute hypokalemia: Code(s): E87.6 - Hypokalemia Status: Acute Assessment and Plan: Patient received replacement with 40 mEq potassium. I will recheck labs at this time and ordered additional as needed (8) Elevated CPK: Code(s): R74.8 - Abnormal levels of other serum enzymes Status: Acute Assessment and Plan: Continue IV fluids. Monitor CK level. Plan DVT prophylaxis -Lovenox Stress ulcer prophylaxis -PPI Nutrition -start clear liquid diet Code Status - Full Code Total Critical Care Time - 30 minutes Due to a high probability of clinically significant, life threatening deterioration, the patient required my highest level of preparedness to intervene emergently and I personally spent this critical care time directly and personally managing the patient. This critical care time included obtaining a history; examining the patient; pulse oximetry; ordering and review of studies; arranging urgent treatment with development of a management plan; evaluation of patient's response to treatment; frequent reassessment; and discussions with other providers. It was exclusive of separately billable procedures and treating other patients and teaching time. 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 According to EMS report patient's mother heard the patient yelling out for her. When her mother arrived to the room she found the patient laying on the floor sliding in out from under her bed. The patient had just had her prescription for [place] #80 tablets filled on the and Fioricet #50 filled on the and both bottles were empty. Patient's mother reports that the patient did not take the medications in attempt to harm herself although patient does have history of suicide attempts in the past by overdosing on medications.. Mother told the staff that patient is ?looking for that freaking high.? Patient was unable to provide any history. In the ER, patient was intermittently calling out for her mother and then became agitated. She was given several doses of benzodiazepine, Benadryl, Haldol, Zyprexa, down. Patient had to be physically restrained. Patient was then started on Precedex infusion to be able to draw labs and do imaging. Imaging results as mentioned below. Patient was found to be having urinary retention and a Rich catheter was placed. The more than 1 L of urine came out. Patient also had a UA suggestive of UTI. Her Tylenol level was elevated and poison control was notified. She had mildly elevated LFTs and was started on N-acetylcysteine infusion. Patient was admitted to ICU for further evaluation management. All other psychiatric medications were held. She had to be physically restrained for her and staffs safety Pt awake, confused and agitated. She states she hurts everywhere but doesnt answer any other question or provide details. She states she is hungry.The entirety of HPI was obtained from review of past medical records, physician/nursing report. Patient was unable to provide any history. Review of Systems Review of Systems: ROS unobtainable: Yes unobtainable due to medical condition and unobtainable due to mental status PMFSH Past Medical History Medical History Bipolar mood disorder Methamphetamine use GERD (gastroesophageal reflux disease) Major depression with psychotic features Carpal tunnel syndrome of right wrist Carcinoma of right ureter SVT (supraventricular tachycardia) Hepatitis C Alcohol abuse Schizoaffective disorder [place] toxicity Due to overdose/suicide attempt Requiring temporary dialysis Tobacco dependence Chronic obstructive pulmonary disease Distal radial fracture December 2022 Ankle fracture, lateral malleolus, closed December 2022 Seizure Migraine Anxiety Suicide attempt Multiple hospitalizations for suicide attempt with history of cutting Surgical History Surgical History History of right salpingo-oophorectomy Due to ectopic Status post lumbar discectomy (~1999) L5-S1 Status post open reduction with internal fixation of fracture Cervical spine fracture History of ureterostomy History of kidney surgery H/O dilation and curettage H/O tubal ligation History of tonsillectomy H/O foot surgery 2021 X2 H/O: hysterectomy 2000 hysterectomy with left oophorectomy Family History Family History Father Alcoholism Grandparent Diabetes mellitus Hypertension Heart disease Mother Kidney disease Grandparent Alcoholism Social History Social History Social History: Surrogate medical decision maker: Landy Silva, . Code status: Full code. Smoking packs per day: 1.5 Smoking cigarettes per day: 30.0 Years smoked: 45 Smoking pack-years: 67.50 Smoking status: Current every day smoker Tobacco type: cigarettes Second hand tobacco smoke exposure: No Alcohol intake: unknown Substance use: current Substance use type: painkillers and prescription drug Other substance usage details: Fioricet and [place] Last use: 01/30/2025 Lack of Transportation: No Lack of Food: Never True Current Housing: I Have Housing Concerned About Future Housing: No Difficulty Paying Gas/Electric Bills: No Difficulty Paying for Meds: No Currently Unemployed: No Education: High School Diploma/GED Difficulty w/ Childcare or Family Care: No Living arrangements: with family Additional living arrangements comments: Lives with mother in [place]. Occupation/Education: unemployed Additional occupation/education comments: Disabled. Spiritual care concerns: No Meds Home Medications and Allergies Home Medications ?Medication ?Instructions ?Recorded ?Confirmed ?Type benztropine 2 mg tablet 2 mg PO BID PRN involuntary 04/18/22 01/31/25 History movement prazosin 5 mg capsule 10 mg PO HS 04/18/22 01/31/25 History chlorpromazine 100 mg tablet 100 mg PO HS 03/27/23 01/31/25 History gabapentin 300 mg capsule 300 mg PO TID 05/25/23 01/31/25 History [id number] 1 tablet PO Q8H PRN Headache 07/26/24 01/31/25 History 50 mg-325 mg-40 mg tablet cyclobenzaprine 10 mg tablet 10 mg PO HS 07/26/24 01/31/25 History benztropine 1 mg tablet 1 mg PO BID 01/31/25 01/31/25 History buspirone 30 mg tablet 30 mg PO BID 01/31/25 01/31/25 History chlorpromazine 25 mg tablet 25 mg PO DAILY 01/31/25 01/31/25 History hydrocodone 5 mg-acetaminophen 325 1 tablet PO TID PRN pain 01/31/25 01/31/25 History mg tablet ondansetron 4 mg disintegrating 4 mg translingual TID PRN nausea 01/31/25 01/31/25 History tablet and vomiting potassium chloride 20 mEq 20 meq PO DAILY 01/31/25 01/31/25 History tablet,extended release sertraline 100 mg tablet 100 mg PO BID 01/31/25 01/31/25 History Allergies Allergy/AdvReac Type Severity Reaction Status Date / Time grass pollen Allergy Intermediate Hives Verified 11/15/24 13:39 amoxicillin (From Augmentin) Allergy Hives Verified 11/15/24 13:39 asenapine (From Saphris) Allergy Hives Verified 11/15/24 13:39 bacitracin (From Neosporin Allergy Rash Verified 11/15/24 13:39 ([id number])) clavulanic acid (From Allergy Hives Verified 11/15/24 13:39 Augmentin) erythromycin base Allergy Hives Verified 11/15/24 13:39 latex Allergy Rash Verified 11/15/24 13:39 neomycin (From Neosporin Allergy Rash Verified 11/15/24 13:39 ([id number])) polymyxin B (From Neosporin Allergy Rash Verified 11/15/24 13:39 ([id number])) risperidone (From Risperdal) Allergy Hives Verified 11/15/24 13:39 tramadol (From Ultram) Allergy Rash Verified 11/15/24 13:39 ciprofloxacin AdvReac Vomiting Verified 11/15/24 13:39 ibuprofen AdvReac Vomiting Verified 11/15/24 13:39 Steriod AdvReac Agitated Uncoded 11/15/24 13:39 Vital Signs Vital Signs - 24 hr 01/30/25 18:29 01/30/25 19:22 01/30/25 19:28 Temperature 36.7 C Pulse Rate 86 93 94 Respiratory Rate 22 H 17 Blood Pressure 115/74 Pulse Oximetry 99 96 Oxygen Delivery 01/30/25 20:45 01/30/25 21:00 01/30/25 21:15 Temperature Pulse Rate 101 H 98 98 Respiratory Rate Blood Pressure 147/72 H 142/76 H 115/94 H Pulse Oximetry 97 96 Oxygen Delivery 01/30/25 21:30 01/30/25 21:45 01/30/25 23:45 Temperature Pulse Rate 100 102 H 98 Respiratory Rate 19 12 17 Blood Pressure 131/99 H 132/90 132/74 Pulse Oximetry 95 95 95 Oxygen Delivery 01/31/25 00:19 01/31/25 00:34 01/31/25 00:49 Temperature Pulse Rate 101 H 108 H 103 H Respiratory Rate 17 24 H 19 Blood Pressure 122/76 152/84 H 132/73 Pulse Oximetry 96 96 96 Oxygen Delivery 01/31/25 00:55 01/31/25 01:04 01/31/25 01:10 Temperature Pulse Rate 98 92 87 Respiratory Rate 21 H 20 20 Blood Pressure 137/73 Pulse Oximetry 96 Oxygen Delivery 01/31/25 01:30 01/31/25 02:04 01/31/25 03:04 Temperature Pulse Rate 85 97 88 Respiratory Rate 19 20 12 Blood Pressure 135/81 145/93 H 112/60 Pulse Oximetry 100 99 97 Oxygen Delivery 01/31/25 03:15 01/31/25 03:35 01/31/25 04:05 Temperature Pulse Rate 91 88 89 Respiratory Rate 15 19 19 Blood Pressure 112/60 Pulse Oximetry 97 Oxygen Delivery 01/31/25 04:35 01/31/25 05:05 01/31/25 05:13 Temperature 37.6 C Pulse Rate 85 81 80 Respiratory Rate 19 20 Blood Pressure 108/67 105/57 L Pulse Oximetry 97 96 Oxygen Delivery 01/31/25 05:39 01/31/25 06:00 01/31/25 06:00 Temperature Pulse Rate 82 82 78 Respiratory Rate 22 H 16 Blood Pressure 99/70 L Pulse Oximetry 99 Oxygen Delivery 01/31/25 06:00 01/31/25 07:00 01/31/25 08:00 Temperature 37.2 C Pulse Rate 80 75 Respiratory Rate 21 H 24 H Blood Pressure 113/63 Pulse Oximetry 98 Oxygen Delivery Room Air 01/31/25 08:00 01/31/25 08:00 01/31/25 08:39 Temperature Pulse Rate 73 73 Respiratory Rate 17 23 H Blood Pressure Pulse Oximetry 98 Oxygen Delivery Room Air Exam Narrative: General: Pt is alert awake and in NAD Lungs/Chest: Trachea central Clear BS B/L, No crackles or wheezing. Cardiac: RRR. Normal S1 S2. No murmurs Circulation: Pedal pulses are intact and symmetrical. Abdomen: Normal bowel sounds. Diabetes. Soft. NT. ND. Extremities: No clubbing, cyanosis or edema. Warm : Rich in place Neurologic: Patient is awake confused agitated, moves all 4 extremity but does not follow commands. She answers questions intermittently and answers are mostly incorrect. She is not oriented but she knows she is in hospital. PERRL. No facial asymmetry noticed. Speech is normal. Patient is physically restrained Skin: No Rash Results Labs 01/30/25 18:59 01/30/25 18:35 Labs: Impressions Head CT 01/31/25 06:52 Impression: No large acute intracranial hemorrhage or suspicious significant mass effect. Chest X-Ray 01/31/25 07:18 IMPRESSION: Left-sided pleural effusion without focal infiltrate. Chest/Abdomen/Pelvis CT 01/31/25 07:30 IMPRESSION: No hollow or solid visceral organ injury. Moderate gallbladder distention with prominence of the common bile duct for which follow-up ultrasound is suggested. Bilateral hydroureteronephrosis without an obstructing stone visualized. Moderate bladder distention. Cervical Spine CT 01/31/25 07:45 Impression: Straightening and slight reversal of the normal curvature of the cervical spine, likely muscular in origin. Degenerative disease, without acute fracture. Short CBC 01/30/25 Range/Units 18:59 WBC 8.6 (4.5-10.0) K/mm3 Hgb 13.6 (12.0-15.0) g/dL Hct 40.9 (37.0-47.0) % Plt Count 323 (150-375) k/mm3 BMP 01/30/25 18:35 Sodium 139 Potassium 3.1 L Chloride 107 Carbon Dioxide 23 BUN 12 Creatinine 0.62 L Glucose 134 H Calcium 8.9 Cardiac Enzymes 01/30/25 01/30/25 Range/Units 18:35 23:41 Total Creatine Kinase 114 874 H (30-135) U/L Troponin I 0.017 (0.000-0.034) ng/mL Liver Function 01/30/25 01/30/25 01/30/25 Range/Units 18:35 22:16 23:41 Total Bilirubin 1.0 0.9 (0.2-1.3) mg/dL AST 60 H 70 H 48 H (14-36) U/L ALT 39 H 38 H 36 H (6-35) U/L Alkaline Phosphatase 103 95 (38-126) U/L Albumin 4.3 (3.5-5.1) g/dL 01/31/25 Range/Units 03:13 Total Bilirubin (0.2-1.3) mg/dL AST 64 H (14-36) U/L ALT 36 H (6-35) U/L Alkaline Phosphatase (38-126) U/L Albumin (3.5-5.1) g/dL Urine 01/30/25 Range/Units 18:35 Urine Color Yellow (Yellow) Urine Appearance Cloudy H (Clear) Urine pH 5.0 (5.0-9.0) Ur Specific [place] 1.029 (1.001-1.035) Urine Protein 1+ H (Negative) mg/dL Urine Glucose (UA) Negative (Negative) mg/dL Quality VTE Prophylaxis VTE prophylaxis: pharmacologic ordered Hospitalist MIPS Advance Care Plan I have confirmed that the patient's Advanced Care Plan is present, code status is documented, or surrogate decision maker is listed in patient medical record.: Yes Medication Reconciliation I have utilized all available resources to obtain, update and review the patients current medications (includes all prescriptions, OTC, herbals, cannabis, and nutritional supplements).: Yes
[2025-01-31 09:08] LABS: Hemoglobin 12.8 g/dL (12.0-15.0); Mean Corpuscular HGB Conc 33.7 g/dl (32-36); Mean Corpuscular Hemoglobin 36.9 pg (26-34); Mean Corpuscular Volume 109.5 fl (80-100); Platelet Count Result 296 k/mm3 (150-375); Red Blood Count 3.47 M/mm3 (4.2-5.4); Red Cell Distribution Width 14.1 % (11.5-14.5); White Blood Count 9.7 K/mm3 (4.5-10.0)
[2025-01-31 09:20] LABS: Alanine Aminotransferase 33 U/L (6-35); Albumin Level 3.6 g/dL (3.5-5.1); Alkaline Phosphatase 73 U/L (38-126); Anion Gap 8 mmol/L (4-12); Aspartate Amino Transferase 66 U/L (14-36); Bilirubin,Total 0.7 mg/dL (0.2-1.3); Blood Urea Nitrogen 4 mg/dL (7-17); Calcium 8.5 mg/dL (8.4-10.2); Carbon Dioxide 21 mmol/L (22-30); Chloride 113 mmol/L (98-107); Estimated CRCL calculation 116 ml/min; Estimated Glomerular Filt Rate > 60; Glucose 108 mg/dL (65-110); Phosphorus 1.3 mg/dL (2.5-4.5); Sodium 142 mmol/L (137-145)
[2025-01-31 09:30] LABS: Creatine Kinase 2057 U/L (30-135)
[2025-01-31] MEDS: dexmedeTOMIDine 400 MCG/100 ML 400 MCG/100 ML BAG 14.42 MCG IV CONT (11:03)
[2025-01-31] MEDS: ENOXAPARIN 40 MG/0.4 ML SYRINGE SUB-Q (11:41)
[2025-01-31] MEDS: POTASSIUM PHOS,M-BASIC-D-BASIC 20 MMOL in SODIUM CHLORIDE 0.9% IV 250 ML 64.17 MMOL IVPB (11:41)
[2025-01-31] MEDS: KCL 20 MEQ/0.45% NS 1,000 ML 150 ML IV CONT ×2 (11:42→17:59)
--- NOTE | 2025-01-31 15:30 | PM.IMPN ---
Progress Note: A&P Assessment and Plan (1) Agitation: Code(s): R45.1 - Restlessness and agitation Status: Inactive Assessment and Plan: Patient has a baseline history of schizophrenia and now comes with acute agitation which is likely multifactorial and combination of polypharmacy with side effects, drug overdose, baseline psychiatric illness and possibly UTI Minimize sedative use. Were home medications on hold Continue Precedex infusion Continue physical restraints for patient and staff safety at this time Will have Psychiatry evaluate patient once medical issues involved One-to-one sitter Treatment of medical problems as below (2) Schizophrenia: Code(s): F20.9 - Schizophrenia, unspecified Status: Acute Assessment and Plan: Currently her schizophrenia medications on hold patient is on Precedex. (3) GERD (gastroesophageal reflux disease): Qualifiers: Esophagitis presence: esophagitis presence not specified Qualified Code(s): K21.9 - Gastro-esophageal reflux disease without esophagitis Code(s): K21.9 - Gastro-esophageal reflux disease without esophagitis Status: Acute Assessment and Plan: Continue PPI (4) Overdose on Tylenol: Qualifiers: Encounter type: initial encounter Injury intent: undetermined intent Qualified Code(s): T39.1X4A - Poisoning by 4-Aminophenol derivatives, undetermined, initial encounter Code(s): T39.1X1A - Poisoning by 4-Aminophenol derivatives, accidental (unintentional), initial encounter Status: Acute Assessment and Plan: Continue N-acetylcysteine infusion Monitor LFTs acetaminophen level has already decreased to less than 10 Poison control consulted (5) Urinary tract infection: Code(s): N39.0 - Urinary tract infection, site not specified Status: Acute Assessment and Plan: Urine culture ordered and sent Continue ertapenem (6) Acute urinary retention: Code(s): R33.8 - Other retention of urine Status: Acute Assessment and Plan: Status post Rich catheter placement (7) Acute hypokalemia: Code(s): E87.6 - Hypokalemia Status: Acute Assessment and Plan: Patient received replacement with 40 mEq potassium. I will recheck labs at this time and ordered additional as needed (8) Elevated CPK: Code(s): R74.8 - Abnormal levels of other serum enzymes Status: Acute Assessment and Plan: Continue IV fluids. Monitor CK level. Subjective Date/time seen: 01/31/25 15:30 Interval history: Pt is somnolent . As per nursing patient has long hx of drug abuse and overdose. Review of Systems Review of Systems: Unobtainable due to the patient's mentation ROS unobtainable: Yes unobtainable due to medical condition and unobtainable due to mental status Exam Narrative: General: Pt is alert awake and in NAD Lungs/Chest: Trachea central Clear BS B/L, No crackles or wheezing. Cardiac: RRR. Normal S1 S2. No murmurs Circulation: Pedal pulses are intact and symmetrical. Abdomen: Normal bowel sounds. Diabetes. Soft. NT. ND. Extremities: No clubbing, cyanosis or edema. Warm : Rich in place Neurologic: Patient is awake confused agitated, moves all 4 extremity but does not follow commands. She answers questions intermittently and answers are mostly incorrect. She is not oriented but she knows she is in hospital. PERRL. No facial asymmetry noticed. Speech is normal. Patient is physically restrained Skin: No Rash Const: Other: Disheveled, agitated, appears older than stated age, acutely ill-appearing HENMT: Other: Mucous membranes are dry, edentulous in upper and lower jaw, lips are peeling, head is normocephalic atraumatic Eyes: Other: Pupils are equal and reactive, no scleral icterus, no conjunctival pallor, conjugate gaze Neck: Other: No JVD, no lymphadenopathy Resp: Other: Decreased breath sounds bilaterally, no increased work of breathing Cardio: Other: Regular rate, regular rhythm GI: Other: Is soft, weeks is is normoactive bowel sounds, is firm distended bladder : Other: Firm distended bladder suprapubic to just below the umbilicus Skin: Other: Numerous bruises bilateral lower extremities right greater than left is Neuro: Other: Is patient is alert unoriented to person only she refuses answer questions but is uncooperative with exam, moves all extremities equally, no localizing neurologic deficits noted but exam limited Extrem: Other: No clubbing, cyanosis or edema, 5/5 strength bilateral upper and lower extremities bruising as noted above Psych: Other: Agitated, aggressive, poor judgment and insight Objective Data Vital Signs Vital Signs: Vital Signs - 24 hr 01/30/25 18:29 01/30/25 19:22 01/30/25 19:28 Temperature 98.1 F Pulse Rate 86 93 94 Respiratory Rate 22 H 17 Blood Pressure 115/74 Pulse Oximetry 99 96 Oxygen Delivery 01/30/25 20:45 01/30/25 21:00 01/30/25 21:15 Temperature Pulse Rate 101 H 98 98 Respiratory Rate Blood Pressure 147/72 H 142/76 H 115/94 H Pulse Oximetry 97 96 Oxygen Delivery 01/30/25 21:30 01/30/25 21:45 01/30/25 23:45 Temperature Pulse Rate 100 102 H 98 Respiratory Rate 19 12 17 Blood Pressure 131/99 H 132/90 132/74 Pulse Oximetry 95 95 95 Oxygen Delivery 01/31/25 00:19 01/31/25 00:34 01/31/25 00:49 Temperature Pulse Rate 101 H 108 H 103 H Respiratory Rate 17 24 H 19 Blood Pressure 122/76 152/84 H 132/73 Pulse Oximetry 96 96 96 Oxygen Delivery 01/31/25 00:55 01/31/25 01:04 01/31/25 01:10 Temperature Pulse Rate 98 92 87 Respiratory Rate 21 H 20 20 Blood Pressure 137/73 Pulse Oximetry 96 Oxygen Delivery 01/31/25 01:30 01/31/25 02:04 01/31/25 03:04 Temperature Pulse Rate 85 97 88 Respiratory Rate 19 20 12 Blood Pressure 135/81 145/93 H 112/60 Pulse Oximetry 100 99 97 Oxygen Delivery 01/31/25 03:15 01/31/25 03:35 01/31/25 04:05 Temperature Pulse Rate 91 88 89 Respiratory Rate 15 19 19 Blood Pressure 112/60 Pulse Oximetry 97 Oxygen Delivery 01/31/25 04:35 01/31/25 05:05 01/31/25 05:13 Temperature 99.6 F Pulse Rate 85 81 80 Respiratory Rate 19 20 Blood Pressure 108/67 105/57 L Pulse Oximetry 97 96 Oxygen Delivery 01/31/25 05:39 01/31/25 06:00 01/31/25 06:00 Temperature Pulse Rate 82 82 78 Respiratory Rate 22 H 16 Blood Pressure 99/70 L Pulse Oximetry 99 Oxygen Delivery 01/31/25 06:00 01/31/25 07:00 01/31/25 08:00 Temperature 98.9 F Pulse Rate 80 75 Respiratory Rate 21 H 24 H Blood Pressure 113/63 Pulse Oximetry 98 Oxygen Delivery Room Air 01/31/25 08:00 01/31/25 08:00 01/31/25 08:00 Temperature Pulse Rate 73 75 Respiratory Rate 17 Blood Pressure Pulse Oximetry 98 Oxygen Delivery Room Air 01/31/25 08:39 01/31/25 10:00 01/31/25 10:00 Temperature Pulse Rate 73 115 H 66 Respiratory Rate 23 H 20 Blood Pressure 121/71 Pulse Oximetry 95 Oxygen Delivery 01/31/25 10:19 01/31/25 11:03 01/31/25 11:03 Temperature Pulse Rate 66 69 69 Respiratory Rate 25 H 19 19 Blood Pressure Pulse Oximetry Oxygen Delivery 01/31/25 11:56 01/31/25 12:00 01/31/25 12:00 Temperature 98.6 F Pulse Rate 61 Respiratory Rate 20 Blood Pressure 99/47 L Pulse Oximetry 96 95 Oxygen Delivery Room Air 01/31/25 12:00 01/31/25 12:00 01/31/25 12:16 Temperature Pulse Rate 63 60 62 Respiratory Rate 21 H 21 H Blood Pressure 99/47 L Pulse Oximetry 97 Oxygen Delivery 01/31/25 13:55 01/31/25 14:00 01/31/25 14:00 Temperature Pulse Rate 96 56 L 60 Respiratory Rate 20 19 Blood Pressure 99/68 L Pulse Oximetry 96 Oxygen Delivery 01/31/25 14:54 Temperature Pulse Rate 56 L Respiratory Rate 19 Blood Pressure Pulse Oximetry Oxygen Delivery Intake/Output Intake/Output: Intake & Output 01/28/25 01/29/25 01/30/25 01/31/25 23:59 23:59 23:59 23:59 Intake Total 2312 1698.68 Output Total 3025 Balance 2312 -1326.32 Meds/Results Medications: Active Medications Generic Name Dose Route Start Last Admin Trade Name Freq PRN Reason Stop Dose Admin Acetaminophen 650 mg 01/31/25 04:01 Acetaminophen 650 Mg Suppository RECTAL Q6H PRN Mild Pain (1-3) or Fever Enoxaparin Sodium 40 mg 01/31/25 09:00 01/31/25 11:41 Enoxaparin 40 Mg/0.4 Ml Syringe SUB-Q 40 mg DAILY BENEDICTO Administration Acetylcysteine 8,250 mg/ 1,041.25 mls @ 65.078 mls/hr 01/31/25 03:30 01/31/25 03:49 Dextrose IVPB 01/31/25 19:29 65.08 mls/hr ONCE ONE Administration Dexmedetomidine HCl 400 mcg in 100 mls @ 12.618 mls/hr 01/31/25 03:00 01/31/25 14:54 Precedex 400 Mcg/100 Ml IV CONT 0.7 mcg/kg/hr .Q7H56M BENEDICTO 12.62 mls/hr Titration Protocol 0.7 MCG/KG/HR Ertapenem 1 gm in 50 mls @ 100 mls/hr 01/31/25 21:00 Invanz 1 Gm/Ns 50 Ml IVPB Q24H BENEDICTO Potassium Chloride/Sodium Chloride 1,000 mls @ 150 mls/hr 01/31/25 10:40 01/31/25 11:42 Kcl 20 Meq/0.45% Ns IV CONT 150 mls/hr .Q6H40M BENEDICTO Administration Nicotine 1 patch 01/31/25 09:00 01/31/25 08:39 Nicotine (*Pbkc) 21 Mg Patch TRANSDERM 1 patch QAM BENEDICTO Administration Ondansetron HCl 4 mg 01/31/25 04:01 Ondansetron Inj 4 Mg/2 Ml Vial IV PUSH Q4H PRN Nausea Pantoprazole Sodium 40 mg 01/31/25 09:00 01/31/25 08:39 Pantoprazole Sodium Iv 40 Mg Vial IV PUSH 40 mg QAM BENEDICTO Administration Radiology Results: ITS Impressions Head CT 01/31/25 06:52 Impression: No large acute intracranial hemorrhage or suspicious significant mass effect. Chest X-Ray 01/31/25 07:18 IMPRESSION: Left-sided pleural effusion without focal infiltrate. Chest/Abdomen/Pelvis CT 01/31/25 07:30 IMPRESSION: No hollow or solid visceral organ injury. Moderate gallbladder distention with prominence of the common bile duct for which follow-up ultrasound is suggested. Bilateral hydroureteronephrosis without an obstructing stone visualized. Moderate bladder distention. Cervical Spine CT 01/31/25 07:45 Impression: Straightening and slight reversal of the normal curvature of the cervical spine, likely muscular in origin. Degenerative disease, without acute fracture. Labs Labs: Laboratory Results - last 24 hr 01/30/25 01/30/25 01/30/25 18:34 18:35 18:43 WBC RBC Hgb Hct MCV MCH MCHC RDW Plt Count MPV Immature Gran % (Auto) Neut % (Auto) Lymph % (Auto) [place] % (Auto) Eos % (Auto) Baso % (Auto) Lymph # (Auto) [place] # (Auto) Eos # (Auto) Baso # (Auto) Abs Immat Gran (auto) Absolute Neuts (auto) Absolute Nucleated RBC Band Neutrophils % Nucleated RBC % Platelet Estimate Macrocytosis Schistocytes PT INR APTT Puncture Site Left radial ABG pH 7.376 ABG pCO2 37.3 ABG pO2 60.7 L ABG PO2/FiO2 Ratio 2.89 ABG HCO3 21.4 L ABG O2 Saturation 90.9 L ABG O2 Content 17.5 ABG Base Excess -3.3 A-a Gradient 44.4 Oxyhemoglobin 88.4 L Total Hemoglobin 14.1 O2 Delivery Device Room air O2 Liters/Min 0.0 FiO2 21 Sodium 139 Potassium 3.1 L Chloride 107 Carbon Dioxide 23 Anion Gap 9 BUN 12 Creatinine 0.62 L Estim Creat Clear Calc Not Reportable Estimated GFR > 60 Glucose 134 H Lactic Acid Calcium 8.9 Phosphorus Magnesium 2.0 Total Bilirubin 1.0 AST 60 H ALT 39 H Alkaline Phosphatase 103 Ammonia < 9 L Total Creatine Kinase 114 Troponin I 0.017 Total Protein 8.0 Albumin 4.3 TSH 1.380 Urine Color Yellow Urine Appearance Cloudy H Urine pH 5.0 Ur Specific [place] 1.029 Urine Protein 1+ H Urine Glucose (UA) Negative Urine Ketones Trace H Ur Blood (Man) Negative Urine Nitrate Negative Urine Bilirubin Negative Urine Urobilinogen 1.0 Add Ur Microanalysis Reviewed Leukocyte Esterase Rfl 2+ H Urine RBC 6-10 H Urine WBC >100 H Ur Squamous Epith Cells None seen Urine Bacteria 4+ H Urine Casts 6-10 Nasal MRSA (PCR) Salicylates < 1.0 L Urine Opiates Screen Positive A Urine Methadone Screen Negative Acetaminophen 72 H Ur Barbiturates Screen Positive A Ur Phencyclidine Scrn Negative Ur Amphetamine Screen Negative U Benzodiazepines Scrn Negative Urine Cocaine Screen Negative U Cannabinoids Screen Negative Ethyl Alcohol < 10 01/30/25 01/30/25 01/30/25 18:59 22:16 23:41 WBC 8.6 RBC 3.67 L Hgb 13.6 Hct 40.9 MCV 111.4 H MCH 37.1 H MCHC 33.3 RDW 14.1 Plt Count 323 MPV 9.1 Immature Gran % (Auto) 0.5 Neut % (Auto) 72.1 Lymph % (Auto) 14.2 L [place] % (Auto) 11.8 H Eos % (Auto) 0.9 Baso % (Auto) 0.5 Lymph # (Auto) 1.22 [place] # (Auto) 1.0 H Eos # (Auto) 0.1 Baso # (Auto) 0.0 Abs Immat Gran (auto) 0.04 H Absolute Neuts (auto) 6.2 Absolute Nucleated RBC 0.000 Band Neutrophils % 0 Nucleated RBC % 0.0 Platelet Estimate Adequate Macrocytosis 1+ Schistocytes None seen PT 12.9 13.1 INR 0.9 0.9 APTT 28.0 Puncture Site ABG pH ABG pCO2 ABG pO2 ABG PO2/FiO2 Ratio ABG HCO3 ABG O2 Saturation ABG O2 Content ABG Base Excess A-a Gradient Oxyhemoglobin Total Hemoglobin O2 Delivery Device O2 Liters/Min FiO2 Sodium Potassium Chloride Carbon Dioxide Anion Gap BUN Creatinine Estim Creat Clear Calc Estimated GFR Glucose Lactic Acid 1.6 Calcium Phosphorus Magnesium Total Bilirubin 0.9 AST 70 H 48 H ALT 38 H 36 H Alkaline Phosphatase 95 Ammonia Total Creatine Kinase 874 H Troponin I Total Protein Albumin TSH Urine Color Urine Appearance Urine pH Ur Specific [place] Urine Protein Urine Glucose (UA) Urine Ketones Ur Blood (Man) Urine Nitrate Urine Bilirubin Urine Urobilinogen Add Ur Microanalysis Leukocyte Esterase Rfl Urine RBC Urine WBC Ur Squamous Epith Cells Urine Bacteria Urine Casts Nasal MRSA (PCR) Salicylates < 1.0 L Urine Opiates Screen Urine Methadone Screen Acetaminophen Ur Barbiturates Screen Ur Phencyclidine Scrn Ur Amphetamine Screen U Benzodiazepines Scrn Urine Cocaine Screen U Cannabinoids Screen Ethyl Alcohol 01/31/25 01/31/25 01/31/25 03:13 04:09 09:03 WBC 9.7 RBC 3.47 L Hgb 12.8 Hct 38.0 MCV 109.5 H MCH 36.9 H MCHC 33.7 RDW 14.1 Plt Count 296 MPV 9.0 Immature Gran % (Auto) Neut % (Auto) Lymph % (Auto) [place] % (Auto) Eos % (Auto) Baso % (Auto) Lymph # (Auto) [place] # (Auto) Eos # (Auto) Baso # (Auto) Abs Immat Gran (auto) Absolute Neuts (auto) Absolute Nucleated RBC Band Neutrophils % Nucleated RBC % Platelet Estimate Macrocytosis Schistocytes PT INR APTT Puncture Site ABG pH ABG pCO2 ABG pO2 ABG PO2/FiO2 Ratio ABG HCO3 ABG O2 Saturation ABG O2 Content ABG Base Excess A-a Gradient Oxyhemoglobin Total Hemoglobin O2 Delivery Device O2 Liters/Min FiO2 Sodium 142 Potassium 3.0 L Chloride 113 H Carbon Dioxide 21 L Anion Gap 8 BUN 4 L D Creatinine 0.42 L Estim Creat Clear Calc 116 Estimated GFR > 60 Glucose 108 Lactic Acid Calcium 8.5 Phosphorus 1.3 L Magnesium 2.0 Total Bilirubin 0.7 AST 64 H 66 H ALT 36 H 33 Alkaline Phosphatase 73 Ammonia Total Creatine Kinase 2057 H Troponin I Total Protein 7.0 Albumin 3.6 TSH Urine Color Urine Appearance Urine pH Ur Specific [place] Urine Protein Urine Glucose (UA) Urine Ketones Ur Blood (Man) Urine Nitrate Urine Bilirubin Urine Urobilinogen Add Ur Microanalysis Leukocyte Esterase Rfl Urine RBC Urine WBC Ur Squamous Epith Cells Urine Bacteria Urine Casts Nasal MRSA (PCR) Detected A* Salicylates Urine Opiates Screen Urine Methadone Screen Acetaminophen < 10 L Ur Barbiturates Screen Ur Phencyclidine Scrn Ur Amphetamine Screen U Benzodiazepines Scrn Urine Cocaine Screen U Cannabinoids Screen Ethyl Alcohol Quality VTE Prophylaxis VTE prophylaxis: pharmacologic ordered Hospitalist MIPS Advance Care Plan I have confirmed that the patient's Advanced Care Plan is present, code status is documented, or surrogate decision maker is listed in patient medical record.: Yes Medication Reconciliation I have utilized all available resources to obtain, update and review the patients current medications (includes all prescriptions, OTC, herbals, cannabis, and nutritional supplements).: Yes
[2025-01-31 17:41] LABS: Acetaminophen < 10 ug/mL (10-30); Anion Gap 7 mmol/L (4-12); Blood Urea Nitrogen 3 mg/dL (7-17); Calcium 8.4 mg/dL (8.4-10.2); Carbon Dioxide 21 mmol/L (22-30); Chloride 113 mmol/L (98-107); Estimated CRCL calculation 120 ml/min; Estimated Glomerular Filt Rate > 60; Glucose 115 mg/dL (65-110); Phosphorus 2.5 mg/dL (2.5-4.5); Potassium 3.1 mmol/L (3.4-5.0); Sodium 141 mmol/L (137-145)
[2025-01-31 17:43] LABS: Alanine Aminotransferase 31 U/L (6-35); Aspartate Amino Transferase 61 U/L (14-36)
[2025-01-31] MEDS: dexmedeTOMIDine 400 MCG/100 ML 400 MCG/100 ML BAG 5.41 MCG IV CONT (18:03)
[2025-01-31] MEDS: ERTAPENEM 1 GM/NS 50 ML 1 GM/50 ML BAG IVPB (22:53)
[2025-01-31] MEDS: KCL 20 MEQ/SW 100 ML 100 ML 50 MEQ IVPB (23:24)
[2025-02-01] VITALS (20 sets, daily range): BP systolic 108–166; BP diastolic 63–98; PULSE 50–110; RESP 15–27; TEMP 36.3–37.1; O2SAT 94–99
[2025-02-01] MEDS: KCL 20 MEQ/0.45% NS 1,000 ML 150 ML IV CONT ×2 (00:38→07:21)
[2025-02-01 04:07] LABS: Hematocrit 37.4 % (37.0-47.0); Hemoglobin 12.7 g/dL (12.0-15.0); Mean Corpuscular Hemoglobin 37.2 pg (26-34); Mean Corpuscular Volume 109.7 fl (80-100); Mean Platelet Volume 9.1 fl (7.4-10.4); Platelet Count Result 254 k/mm3 (150-375); Red Blood Count 3.41 M/mm3 (4.2-5.4); Red Cell Distribution Width 14.5 % (11.5-14.5); White Blood Count 5.9 K/mm3 (4.5-10.0)
[2025-02-01 04:17] LABS: Alanine Aminotransferase 31 U/L (6-35); Albumin Level 3.3 g/dL (3.5-5.1); Alkaline Phosphatase 77 U/L (38-126); Anion Gap 4 mmol/L (4-12); Aspartate Amino Transferase 68 U/L (14-36); Bilirubin,Total 0.6 mg/dL (0.2-1.3); Blood Urea Nitrogen 3 mg/dL (7-17); Calcium 8.6 mg/dL (8.4-10.2); Carbon Dioxide 21 mmol/L (22-30); Chloride 114 mmol/L (98-107); Creatine Kinase 1112 U/L (30-135); Estimated CRCL calculation 108 ml/min; Estimated Glomerular Filt Rate > 60; Glucose 94 mg/dL (65-110); Magnesium 1.8 mg/dL (1.6-2.3); Potassium 3.9 mmol/L (3.4-5.0); Sodium 139 mmol/L (137-145)
[2025-02-01] MEDS: dexmedeTOMIDine 400 MCG/100 ML 400 MCG/100 ML BAG 12.62 MCG IV CONT (04:46)
[2025-02-01] MEDS: ENOXAPARIN 40 MG/0.4 ML SYRINGE SUB-Q (08:11)
[2025-02-01] MEDS: LACTATED RINGERS 1,000 ML 75 ML IV CONT ×2 (08:11→15:45)
[2025-02-01] MEDS: PANTOPRAZOLE SODIUM IV 40 MG VIAL IV PUSH (08:11)
--- NOTE | 2025-02-01 08:52 | WPDINTPN ---
Progress Note: A&P Assessment and Plan (1) Agitation: Code(s): R45.1 - Restlessness and agitation Status: Inactive Assessment and Plan: Patient has a baseline history of schizophrenia and now comes with acute agitation which is likely multifactorial and combination of polypharmacy with side effects, drug overdose, baseline psychiatric illness and possibly UTI Minimize sedative use. Were home medications on hold Patient is currently on Precedex infusion Clinically she has improved significantly and is now, appropriate and oriented I have discontinued physical restraint And I will try to wean down her Precedex infusion Patient does have one-to-one sitter Seroquel low dose of ordered at night (2) Schizophrenia: Code(s): F20.9 - Schizophrenia, unspecified Status: Acute Assessment and Plan: Currently her schizophrenia medications on hold patient is on Precedex. I requested nurse to obtain her current medication list from her mother and we will resume some of the medications that she is on (3) GERD (gastroesophageal reflux disease): Qualifiers: Esophagitis presence: esophagitis presence not specified Qualified Code(s): K21.9 - Gastro-esophageal reflux disease without esophagitis Code(s): K21.9 - Gastro-esophageal reflux disease without esophagitis Status: Acute Assessment and Plan: Continue PPI (4) Overdose on Tylenol: Qualifiers: Encounter type: initial encounter Injury intent: undetermined intent Qualified Code(s): T39.1X4A - Poisoning by 4-Aminophenol derivatives, undetermined, initial encounter Code(s): T39.1X1A - Poisoning by 4-Aminophenol derivatives, accidental (unintentional), initial encounter Status: Acute Assessment and Plan: She has completed her N-acetylcysteine infusion protocol LFTs have improved and acetaminophen level has clear Poison control signed (5) Urinary tract infection: Code(s): N39.0 - Urinary tract infection, site not specified Status: Acute Assessment and Plan: Urine culture ordered and sent Continue ertapenem (6) Acute urinary retention: Code(s): R33.8 - Other retention of urine Status: Acute Assessment and Plan: Status post Rich catheter placement (7) Acute hypokalemia: Code(s): E87.6 - Hypokalemia Status: Acute Assessment and Plan: Improved after placement. Monitor (8) Elevated CPK: Code(s): R74.8 - Abnormal levels of other serum enzymes Status: Acute Assessment and Plan: Level improving. Continue IV fluids but decrease. Continue to Monitor CK level. Plan DVT prophylaxis -Lovenox Stress ulcer prophylaxis -PPI Nutrition -advance to regular diet. Code Status - Full Code Total Critical Care Time - 30 minutes Due to a high probability of clinically significant, life threatening deterioration, the patient required my highest level of preparedness to intervene emergently and I personally spent this critical care time directly and personally managing the patient. This critical care time included obtaining a history; examining the patient; pulse oximetry; ordering and review of studies; arranging urgent treatment with development of a management plan; evaluation of patient's response to treatment; frequent reassessment; and discussions with other providers. It was exclusive of separately billable procedures and treating other patients and teaching time. Please see Assessment and Plan section and the rest of the note for further information on patient assessment and treatment Subjective Date/time seen: 02/01/25 Patient is doing much better today and is much more awake and alert. She continues to be on Precedex infusion. She is AO x3 this morning and denies any complaint. She states she is hungry and would like to be full. He she states that she was not trying to hurt herself but was trying to get high with Fioricet and she took 6 pills. She denies taking any [place] or any other additional pills. She states that her mother is inaccurate when she states that patient may trying to hurt herself. She denies any pain. Patient denies fever, chest pain, shortness of breath, cough, nausea vomiting, abdominal pain,, diarrhea, headache or constipation. Patient asked me if she has COVID when I told her that she is not and we do not suspect COVID she started crying that everyone in the staff has been telling her that she has COVID. All other systems were reviewed and were negative. Review of Systems Review of Systems: All systems reviewed & are unremarkable except as noted in HPI and below (HPI) Exam Narrative: General: Pt is alert awake and in NAD Lungs/Chest: Trachea central Clear BS B/L, No crackles or wheezing. Cardiac: RRR. Normal S1 S2. No murmurs Circulation: Pedal pulses are intact and symmetrical. Abdomen: Normal bowel sounds. Diabetes. Soft. NT. ND. Extremities: No clubbing, cyanosis or edema. Warm : Rich in place Neurologic: Patient is awake, calm and oriented x 3, she moves all 4 extremity and follow commands. PERRL. No facial asymmetry noticed. Speech is normal. Skin: No Rash Objective Data Vital Signs Vital Signs: Vital Signs - 24 hr 01/31/25 10:00 01/31/25 10:00 01/31/25 10:19 Temperature Pulse Rate 64 66 66 Respiratory Rate 20 25 H Blood Pressure 121/71 Pulse Oximetry 95 Oxygen Delivery 01/31/25 11:03 01/31/25 11:03 01/31/25 11:56 Temperature 37.0 C Pulse Rate 69 69 Respiratory Rate 19 19 Blood Pressure Pulse Oximetry Oxygen Delivery 01/31/25 12:00 01/31/25 12:00 01/31/25 12:00 Temperature Pulse Rate 61 63 Respiratory Rate 20 21 H Blood Pressure 99/47 L 99/47 L Pulse Oximetry 96 95 97 Oxygen Delivery Room Air 01/31/25 12:00 01/31/25 12:16 01/31/25 13:55 Temperature Pulse Rate 60 62 96 Respiratory Rate 21 H 20 Blood Pressure Pulse Oximetry Oxygen Delivery 01/31/25 14:00 01/31/25 14:00 01/31/25 14:54 Temperature Pulse Rate 56 L 60 56 L Respiratory Rate 19 19 Blood Pressure 99/68 L Pulse Oximetry 96 Oxygen Delivery 01/31/25 15:34 01/31/25 16:00 01/31/25 16:00 Temperature Pulse Rate 58 L 56 L Respiratory Rate 20 Blood Pressure Pulse Oximetry 96 Oxygen Delivery Room Air 01/31/25 16:00 01/31/25 16:04 01/31/25 16:46 Temperature 36.7 C Pulse Rate 55 L 55 L 54 L Respiratory Rate 19 19 20 Blood Pressure 93/57 L Pulse Oximetry 97 Oxygen Delivery 01/31/25 17:30 01/31/25 18:00 01/31/25 18:00 Temperature Pulse Rate 59 L 58 L 59 L Respiratory Rate 24 H 15 Blood Pressure 101/64 Pulse Oximetry 99 Oxygen Delivery 01/31/25 18:03 01/31/25 18:03 01/31/25 20:00 Temperature Pulse Rate 62 62 Respiratory Rate 14 14 Blood Pressure Pulse Oximetry 97 Oxygen Delivery Room Air 01/31/25 20:00 01/31/25 20:00 01/31/25 20:00 Temperature 36.7 C Pulse Rate 78 66 70 Respiratory Rate 16 19 Blood Pressure 102/61 Pulse Oximetry 99 Oxygen Delivery 01/31/25 20:56 01/31/25 22:00 01/31/25 22:00 Temperature Pulse Rate 83 72 72 Respiratory Rate 25 H 19 Blood Pressure Pulse Oximetry Oxygen Delivery 01/31/25 22:00 01/31/25 23:42 02/01/25 00:00 Temperature Pulse Rate 72 69 Respiratory Rate 19 30 H Blood Pressure 168/97 H Pulse Oximetry 98 96 Oxygen Delivery Room Air 02/01/25 00:00 02/01/25 00:00 02/01/25 00:00 Temperature 36.4 C Pulse Rate 68 68 70 Respiratory Rate 25 H 25 H Blood Pressure 166/82 H Pulse Oximetry 96 Oxygen Delivery 02/01/25 02:00 02/01/25 02:00 02/01/25 02:00 Temperature Pulse Rate 62 62 62 Respiratory Rate 21 H 21 H Blood Pressure 155/88 H Pulse Oximetry 96 Oxygen Delivery 02/01/25 04:00 02/01/25 04:00 02/01/25 04:00 Temperature 36.3 C L Pulse Rate 52 L 52 L Respiratory Rate 20 20 Blood Pressure 157/86 H Pulse Oximetry 96 94 Oxygen Delivery Room Air 02/01/25 04:00 02/01/25 04:26 02/01/25 04:46 Temperature Pulse Rate 52 L 51 L 51 L Respiratory Rate 19 19 Blood Pressure Pulse Oximetry Oxygen Delivery 02/01/25 06:00 02/01/25 06:00 02/01/25 06:00 Temperature Pulse Rate 50 L 50 L 50 L Respiratory Rate 23 H 23 H Blood Pressure 159/90 H Pulse Oximetry 95 Oxygen Delivery 02/01/25 08:00 02/01/25 08:00 02/01/25 08:00 Temperature 36.4 C Pulse Rate 58 L 57 L 58 L Respiratory Rate 23 H 27 H 20 Blood Pressure 129/77 129/77 Pulse Oximetry 97 97 Oxygen Delivery 02/01/25 08:00 Temperature Pulse Rate Respiratory Rate Blood Pressure Pulse Oximetry 97 Oxygen Delivery Room Air Intake/Output Intake/Output: Intake & Output 01/29/25 01/30/25 01/31/25 02/01/25 23:59 23:59 23:59 23:59 Intake Total 2312 4321.23 2597.9 Output Total 3025 1900 Balance 2312 1296.23 697.9 Meds/Results Medications: Active Medications Generic Name Dose Route Start Last Admin Trade Name Freq PRN Reason Stop Dose Admin Acetaminophen 650 mg 01/31/25 04:01 Acetaminophen 650 Mg Suppository RECTAL Q6H PRN Mild Pain (1-3) or Fever Enoxaparin Sodium 40 mg 01/31/25 09:00 02/01/25 08:11 Enoxaparin 40 Mg/0.4 Ml Syringe SUB-Q 40 mg DAILY BENEDICTO Administration Dexmedetomidine HCl 400 mcg in 100 mls @ 10.815 mls/hr 01/31/25 03:00 02/01/25 08:00 Precedex 400 Mcg/100 Ml IV CONT 0.6 mcg/kg/hr .Q9H15M BENEDICTO 10.82 mls/hr Titration Protocol 0.6 MCG/KG/HR Ertapenem 1 gm in 50 mls @ 100 mls/hr 01/31/25 21:00 01/31/25 23:23 Invanz 1 Gm/Ns 50 Ml IVPB Infused Q24H BENEDICTO Infusion Lactated Ringer's 1,000 mls @ 75 mls/hr 02/01/25 07:40 02/01/25 08:11 Lr - Lactated Ringers Iv IV CONT 75 mls/hr .[id number] BENEDICTO Administration Ondansetron HCl 4 mg 01/31/25 04:01 Ondansetron Inj 4 Mg/2 Ml Vial IV PUSH Q4H PRN Nausea Oxycodone HCl 5 mg 02/01/25 07:47 Oxycodone Hcl (*Crx) 5 Mg Tab Ir PO Q4H PRN Pain Rated 7-10 Pantoprazole Sodium 40 mg 01/31/25 09:00 02/01/25 08:11 Pantoprazole Sodium Iv 40 Mg Vial IV PUSH 40 mg QAM BENEDICTO Administration Quetiapine Fumarate 25 mg 02/01/25 21:00 Quetiapine Fumarate 25 Mg Tablet PO HS BENEDICTO Radiology Results: ITS Impressions Head CT 01/31/25 06:52 Impression: No large acute intracranial hemorrhage or suspicious significant mass effect. Chest X-Ray 01/31/25 07:18 IMPRESSION: Left-sided pleural effusion without focal infiltrate. Chest/Abdomen/Pelvis CT 01/31/25 07:30 IMPRESSION: No hollow or solid visceral organ injury. Moderate gallbladder distention with prominence of the common bile duct for which follow-up ultrasound is suggested. Bilateral hydroureteronephrosis without an obstructing stone visualized. Moderate bladder distention. Cervical Spine CT 01/31/25 07:45 Impression: Straightening and slight reversal of the normal curvature of the cervical spine, likely muscular in origin. Degenerative disease, without acute fracture. Labs Labs: Laboratory Results - last 24 hr 01/31/25 01/31/25 02/01/25 09:03 17:19 04:03 WBC 9.7 5.9 RBC 3.47 L 3.41 L Hgb 12.8 12.7 Hct 38.0 37.4 MCV 109.5 H 109.7 H MCH 36.9 H 37.2 H MCHC 33.7 34.0 RDW 14.1 14.5 Plt Count 296 254 MPV 9.0 9.1 Sodium 142 141 139 Potassium 3.0 L 3.1 L 3.9 Chloride 113 H 113 H 114 H Carbon Dioxide 21 L 21 L 21 L Anion Gap 8 7 4 BUN 4 L D 3 L 3 L Creatinine 0.42 L 0.41 L 0.46 L Estim Creat Clear Calc 116 120 108 Estimated GFR > 60 > 60 > 60 Glucose 108 115 H 94 Calcium 8.5 8.4 8.6 Phosphorus 1.3 L 2.5 Magnesium 2.0 1.8 Total Bilirubin 0.7 0.6 AST 66 H 61 H 68 H ALT 33 31 31 Alkaline Phosphatase 73 77 Total Creatine Kinase 2057 H 1112 H Total Protein 7.0 7.0 Albumin 3.6 3.3 L Acetaminophen < 10 L Quality VTE Prophylaxis VTE prophylaxis: pharmacologic ordered
--- NOTE | 2025-02-01 15:07 | PM.IMPN ---
Progress Note: A&P Assessment and Plan (1) Agitation: Code(s): R45.1 - Restlessness and agitation Status: Inactive Assessment and Plan: Patient has a baseline history of schizophrenia and now comes with acute agitation which is likely multifactorial and combination of polypharmacy with side effects, drug overdose, baseline psychiatric illness and possibly UTI Minimize sedative use. Were home medications on hold Precedex drip off Able to participate in conversation Psychiatry evaluation pending Seroquel low dose of ordered at night (2) Schizophrenia: Code(s): F20.9 - Schizophrenia, unspecified Status: Acute Assessment and Plan: Currently her schizophrenia medications on hold Will resume after psychiatry evaluation (3) GERD (gastroesophageal reflux disease): Qualifiers: Esophagitis presence: esophagitis presence not specified Qualified Code(s): K21.9 - Gastro-esophageal reflux disease without esophagitis Code(s): K21.9 - Gastro-esophageal reflux disease without esophagitis Status: Acute Assessment and Plan: Continue PPI (4) Overdose on Tylenol: Qualifiers: Encounter type: initial encounter Injury intent: undetermined intent Qualified Code(s): T39.1X4A - Poisoning by 4-Aminophenol derivatives, undetermined, initial encounter Code(s): T39.1X1A - Poisoning by 4-Aminophenol derivatives, accidental (unintentional), initial encounter Status: Acute Assessment and Plan: She has completed her N-acetylcysteine infusion protocol LFTs have improved and acetaminophen level has clear Poison control signed off (5) Urinary tract infection: Code(s): N39.0 - Urinary tract infection, site not specified Status: Acute Assessment and Plan: Reviewed urine culture (6) Acute urinary retention: Code(s): R33.8 - Other retention of urine Status: Acute Assessment and Plan: Status post Rich catheter placement (7) Acute hypokalemia: Code(s): E87.6 - Hypokalemia Status: Acute Assessment and Plan: Improved after placement. Monitor (8) Elevated CPK: Code(s): R74.8 - Abnormal levels of other serum enzymes Status: Acute Assessment and Plan: Level improving. Continue IV fluids but decrease. Continue to Monitor CK level. Subjective Date/time seen: 02/01/25 15:07 Interval history: Patient is currently off of Precedex drip. Pending psychiatry evaluation. Patient is AAO x3 and was able to participate in the conversation today. Review of Systems Review of Systems: Unobtainable due to the patient's mentation All systems reviewed & are unremarkable except as noted in HPI and below (HPI) ROS unobtainable: Yes unobtainable due to medical condition and unobtainable due to mental status Exam Narrative: General: Pt is alert awake and in NAD Lungs/Chest: Trachea central Clear BS B/L, No crackles or wheezing. Cardiac: RRR. Normal S1 S2. No murmurs Circulation: Pedal pulses are intact and symmetrical. Abdomen: Normal bowel sounds. Diabetes. Soft. NT. ND. Extremities: No clubbing, cyanosis or edema. Warm : Rich in place Neurologic: Patient is awake, calm and oriented x 3, she moves all 4 extremity and follow commands. PERRL. No facial asymmetry noticed. Speech is normal. Skin: No Rash Const: Other: Disheveled, agitated, appears older than stated age, acutely ill-appearing HENMT: Other: Mucous membranes are dry, edentulous in upper and lower jaw, lips are peeling, head is normocephalic atraumatic Eyes: Other: Pupils are equal and reactive, no scleral icterus, no conjunctival pallor, conjugate gaze Neck: Other: No JVD, no lymphadenopathy Resp: Other: Decreased breath sounds bilaterally, no increased work of breathing Cardio: Other: Regular rate, regular rhythm GI: Other: Is soft, weeks is is normoactive bowel sounds, is firm distended bladder : Other: Firm distended bladder suprapubic to just below the umbilicus Skin: Other: Numerous bruises bilateral lower extremities right greater than left is Neuro: Other: Is patient is alert unoriented to person only she refuses answer questions but is uncooperative with exam, moves all extremities equally, no localizing neurologic deficits noted but exam limited Extrem: Other: No clubbing, cyanosis or edema, 5/5 strength bilateral upper and lower extremities bruising as noted above Psych: Other: Agitated, aggressive, poor judgment and insight Objective Data Vital Signs Vital Signs: Vital Signs - 24 hr 01/31/25 15:34 01/31/25 16:00 01/31/25 16:00 Temperature Pulse Rate 58 L 56 L Respiratory Rate 20 Blood Pressure Pulse Oximetry 96 Oxygen Delivery Room Air 01/31/25 16:00 01/31/25 16:04 01/31/25 16:46 Temperature 98.1 F Pulse Rate 55 L 55 L 54 L Respiratory Rate 19 19 20 Blood Pressure 93/57 L Pulse Oximetry 97 Oxygen Delivery 01/31/25 17:30 01/31/25 18:00 01/31/25 18:00 Temperature Pulse Rate 59 L 58 L 59 L Respiratory Rate 24 H 15 Blood Pressure 101/64 Pulse Oximetry 99 Oxygen Delivery 01/31/25 18:03 01/31/25 18:03 01/31/25 20:00 Temperature Pulse Rate 62 62 Respiratory Rate 14 14 Blood Pressure Pulse Oximetry 97 Oxygen Delivery Room Air 01/31/25 20:00 01/31/25 20:00 01/31/25 20:00 Temperature 98.1 F Pulse Rate 78 66 70 Respiratory Rate 16 19 Blood Pressure 102/61 Pulse Oximetry 99 Oxygen Delivery 01/31/25 20:56 01/31/25 22:00 01/31/25 22:00 Temperature Pulse Rate 83 72 72 Respiratory Rate 25 H 19 Blood Pressure Pulse Oximetry Oxygen Delivery 01/31/25 22:00 01/31/25 23:42 02/01/25 00:00 Temperature Pulse Rate 72 69 Respiratory Rate 19 30 H Blood Pressure 168/97 H Pulse Oximetry 98 96 Oxygen Delivery Room Air 02/01/25 00:00 02/01/25 00:00 02/01/25 00:00 Temperature 97.6 F Pulse Rate 68 68 70 Respiratory Rate 25 H 25 H Blood Pressure 166/82 H Pulse Oximetry 96 Oxygen Delivery 02/01/25 02:00 02/01/25 02:00 02/01/25 02:00 Temperature Pulse Rate 62 62 62 Respiratory Rate 21 H 21 H Blood Pressure 155/88 H Pulse Oximetry 96 Oxygen Delivery 02/01/25 04:00 02/01/25 04:00 02/01/25 04:00 Temperature 97.3 F L Pulse Rate 52 L 52 L Respiratory Rate 20 20 Blood Pressure 157/86 H Pulse Oximetry 96 94 Oxygen Delivery Room Air 02/01/25 04:00 02/01/25 04:26 02/01/25 04:46 Temperature Pulse Rate 52 L 51 L 51 L Respiratory Rate 19 19 Blood Pressure Pulse Oximetry Oxygen Delivery 02/01/25 06:00 02/01/25 06:00 02/01/25 06:00 Temperature Pulse Rate 50 L 50 L 50 L Respiratory Rate 23 H 23 H Blood Pressure 159/90 H Pulse Oximetry 95 Oxygen Delivery 02/01/25 08:00 02/01/25 08:00 02/01/25 08:00 Temperature 97.6 F Pulse Rate 58 L 57 L 58 L Respiratory Rate 23 H 27 H 20 Blood Pressure 129/77 129/77 Pulse Oximetry 97 97 Oxygen Delivery 02/01/25 08:00 02/01/25 08:00 02/01/25 08:30 Temperature Pulse Rate 56 L 58 L Respiratory Rate 15 Blood Pressure Pulse Oximetry 97 Oxygen Delivery Room Air 02/01/25 09:00 02/01/25 09:30 02/01/25 10:00 Temperature Pulse Rate 55 L 58 L 58 L Respiratory Rate 15 19 15 Blood Pressure 108/70 Pulse Oximetry 98 Oxygen Delivery 02/01/25 10:00 02/01/25 10:00 02/01/25 10:00 Temperature Pulse Rate 60 58 L 60 Respiratory Rate 15 19 Blood Pressure 108/70 Pulse Oximetry 97 Oxygen Delivery 02/01/25 11:00 02/01/25 12:00 02/01/25 12:00 Temperature 97.8 F Pulse Rate 64 73 Respiratory Rate 15 21 H Blood Pressure 143/87 H Pulse Oximetry 99 99 Oxygen Delivery Room Air 02/01/25 12:00 02/01/25 12:00 02/01/25 14:00 Temperature Pulse Rate 62 72 85 Respiratory Rate 15 Blood Pressure Pulse Oximetry Oxygen Delivery 02/01/25 14:00 02/01/25 14:00 Temperature Pulse Rate 90 90 Respiratory Rate 19 19 Blood Pressure 131/98 H Pulse Oximetry 98 Oxygen Delivery Intake/Output Intake/Output: Intake & Output 01/29/25 01/30/25 01/31/25 02/01/25 23:59 23:59 23:59 23:59 Intake Total 2312 4321.23 2619.5 Output Total 3025 1900 Balance 2312 1296.23 719.5 Meds/Results Medications: Active Medications Generic Name Dose Route Start Last Admin Trade Name Freq PRN Reason Stop Dose Admin Acetaminophen 650 mg 01/31/25 04:01 Acetaminophen 650 Mg Suppository RECTAL Q6H PRN Mild Pain (1-3) or Fever Benztropine Mesylate 1 mg 02/01/25 17:00 Benztropine Mesylate 1 Mg Tablet PO BID [facility] Buspirone HCl 30 mg 02/01/25 17:00 Buspirone Hcl 10 Mg Tablet PO BID [facility] Chlorpromazine HCl 50 mg 02/01/25 17:00 Chlorpromazine Hcl 25 Mg Tablet PO BID [facility] Enoxaparin Sodium 40 mg 01/31/25 09:00 02/01/25 08:11 Enoxaparin 40 Mg/0.4 Ml Syringe SUB-Q 40 mg DAILY BENEDICTO Administration Ertapenem 1 gm in 50 mls @ 100 mls/hr 01/31/25 21:00 01/31/25 23:23 Invanz 1 Gm/Ns 50 Ml IVPB Infused Q24H BENEDICTO Infusion Lactated Ringer's 1,000 mls @ 75 mls/hr 02/01/25 07:40 02/01/25 08:11 Lr - Lactated Ringers Iv IV CONT 75 mls/hr .[id number] BENEDICTO Administration Ondansetron HCl 4 mg 01/31/25 04:01 Ondansetron Inj 4 Mg/2 Ml Vial IV PUSH Q4H PRN Nausea Oxycodone HCl 5 mg 02/01/25 07:47 Oxycodone Hcl (*Crx) 5 Mg Tab Ir PO Q4H PRN Pain Rated 7-10 Pantoprazole Sodium 40 mg 01/31/25 09:00 02/01/25 08:11 Pantoprazole Sodium Iv 40 Mg Vial IV PUSH 40 mg QAM BENEDICTO Administration Prazosin HCl 5 mg 02/01/25 21:00 Prazosin Hcl 5 Mg Capsule PO HS [facility] Sertraline HCl 200 mg 02/02/25 09:00 Sertraline Hcl 50 Mg Tablet PO DAILY [facility] Radiology Results: ITS Impressions Head CT 01/31/25 06:52 Impression: No large acute intracranial hemorrhage or suspicious significant mass effect. Chest X-Ray 01/31/25 07:18 IMPRESSION: Left-sided pleural effusion without focal infiltrate. Chest/Abdomen/Pelvis CT 01/31/25 07:30 IMPRESSION: No hollow or solid visceral organ injury. Moderate gallbladder distention with prominence of the common bile duct for which follow-up ultrasound is suggested. Bilateral hydroureteronephrosis without an obstructing stone visualized. Moderate bladder distention. Cervical Spine CT 01/31/25 07:45 Impression: Straightening and slight reversal of the normal curvature of the cervical spine, likely muscular in origin. Degenerative disease, without acute fracture. Labs Labs: Laboratory Results - last 24 hr 01/31/25 02/01/25 17:19 04:03 WBC 5.9 RBC 3.41 L Hgb 12.7 Hct 37.4 MCV 109.7 H MCH 37.2 H MCHC 34.0 RDW 14.5 Plt Count 254 MPV 9.1 Sodium 141 139 Potassium 3.1 L 3.9 Chloride 113 H 114 H Carbon Dioxide 21 L 21 L Anion Gap 7 4 BUN 3 L 3 L Creatinine 0.41 L 0.46 L Estim Creat Clear Calc 120 108 Estimated GFR > 60 > 60 Glucose 115 H 94 Calcium 8.4 8.6 Phosphorus 2.5 Magnesium 1.8 Total Bilirubin 0.6 AST 61 H 68 H ALT 31 31 Alkaline Phosphatase 77 Total Creatine Kinase 1112 H Total Protein 7.0 Albumin 3.3 L Acetaminophen < 10 L Quality VTE Prophylaxis VTE prophylaxis: pharmacologic ordered Hospitalist MIPS Advance Care Plan I have confirmed that the patient's Advanced Care Plan is present, code status is documented, or surrogate decision maker is listed in patient medical record.: Yes Medication Reconciliation I have utilized all available resources to obtain, update and review the patients current medications (includes all prescriptions, OTC, herbals, cannabis, and nutritional supplements).: Yes
[2025-02-01] MEDS: chlorproMAZINE HCL 25 MG TABLET 50 MG PO (17:26)
[2025-02-01] MEDS: busPIRone HCL 10 MG TABLET 30 MG PO (17:26)
[2025-02-01] MEDS: BENZTROPINE MESYLATE 1 MG TABLET PO (17:26)
[2025-02-01] MEDS: ERTAPENEM 1 GM/NS 50 ML 1 GM/50 ML BAG IVPB (20:25)
[2025-02-01] MEDS: PRAZOSIN HCL 5 MG CAPSULE PO (20:26)
[2025-02-01] MEDS: ACETAMINOPHEN 325 MG TABLET 650 MG PO (20:26)
[2025-02-02] VITALS (9 sets, daily range): BP systolic 121–141; BP diastolic 58–79; PULSE 79–107; RESP 16–18; TEMP 36.7–37; O2SAT 94–98
[2025-02-02 04:24] LABS: Alanine Aminotransferase 39 U/L (6-35); Albumin Level 3.5 g/dL (3.5-5.1); Alkaline Phosphatase 85 U/L (38-126); Anion Gap 7 mmol/L (4-12); Aspartate Amino Transferase 90 U/L (14-36); Bilirubin,Total 0.8 mg/dL (0.2-1.3); Blood Urea Nitrogen 4 mg/dL (7-17); Calcium 8.5 mg/dL (8.4-10.2); Carbon Dioxide 22 mmol/L (22-30); Chloride 110 mmol/L (98-107); Creatine Kinase 975 U/L (30-135); Estimated CRCL calculation 120 ml/min; Estimated Glomerular Filt Rate > 60; Glucose 85 mg/dL (65-110); Potassium 3.3 mmol/L (3.4-5.0); Sodium 139 mmol/L (137-145)
[2025-02-02 04:43] LABS: Hematocrit 38.1 % (37.0-47.0); Hemoglobin 12.6 g/dL (12.0-15.0); Mean Corpuscular HGB Conc 33.1 g/dl (32-36); Mean Corpuscular Hemoglobin 36.6 pg (26-34); Mean Corpuscular Volume 110.8 fl (80-100); Mean Platelet Volume 9.6 fl (7.4-10.4); Platelet Count Result 263 k/mm3 (150-375); Red Blood Count 3.44 M/mm3 (4.2-5.4); Red Cell Distribution Width 14.6 % (11.5-14.5); White Blood Count 5.6 K/mm3 (4.5-10.0)
[2025-02-02] MEDS: LACTATED RINGERS 1,000 ML 75 ML IV CONT ×2 (05:05→19:59)
[2025-02-02] MEDS: ENOXAPARIN 40 MG/0.4 ML SYRINGE SUB-Q (08:53)
[2025-02-02] MEDS: SERTRALINE HCL 50 MG TABLET 200 MG PO (08:53)
[2025-02-02] MEDS: busPIRone HCL 10 MG TABLET 30 MG PO ×2 (08:53→17:15)
[2025-02-02] MEDS: BENZTROPINE MESYLATE 1 MG TABLET PO ×2 (08:54→17:15)
[2025-02-02] MEDS: chlorproMAZINE HCL 25 MG TABLET 50 MG PO ×2 (08:54→17:15)
[2025-02-02] MEDS: PANTOPRAZOLE SODIUM IV 40 MG VIAL IV PUSH (08:54)
[2025-02-02] MEDS: POTASSIUM CHLORIDE 20 MEQ ER TABLET 40 MEQ PO (08:58)
[2025-02-02] MEDS: ACETAMINOPHEN 325 MG TABLET 650 MG PO (08:59)
--- NOTE | 2025-02-02 09:10 | PM.IMPN ---
Progress Note: A&P Assessment and Plan (1) Agitation: Code(s): R45.1 - Restlessness and agitation Status: Inactive Assessment and Plan: Patient has a baseline history of schizophrenia and now comes with acute agitation which is likely multifactorial and combination of polypharmacy with side effects, drug overdose, baseline psychiatric illness and possibly UTI Off Precedex infusion> 24 hours -patient has been restarted on her home Cogentin, BuSpar, chlorpromazine, central Clinically she has improved significantly and is now, appropriate and oriented Patient does have one-to-one sitter Seroquel low dose of ordered at night (2) Schizophrenia: Code(s): F20.9 - Schizophrenia, unspecified Status: Acute Assessment and Plan: Restarted home medications (3) GERD (gastroesophageal reflux disease): Qualifiers: Esophagitis presence: esophagitis presence not specified Qualified Code(s): K21.9 - Gastro-esophageal reflux disease without esophagitis Code(s): K21.9 - Gastro-esophageal reflux disease without esophagitis Status: Acute Assessment and Plan: Continue PPI (4) Overdose on Tylenol: Qualifiers: Encounter type: initial encounter Injury intent: undetermined intent Qualified Code(s): T39.1X4A - Poisoning by 4-Aminophenol derivatives, undetermined, initial encounter Code(s): T39.1X1A - Poisoning by 4-Aminophenol derivatives, accidental (unintentional), initial encounter Status: Acute Assessment and Plan: She has completed her N-acetylcysteine infusion protocol LFTs have improved and acetaminophen level has clear Poison control signed off -care coordination in crisis management to evaluate -psychiatry evaluation pending (5) Urinary tract infection: Code(s): N39.0 - Urinary tract infection, site not specified Status: Acute Assessment and Plan: 01/30/2025: Urine culture shows greater than 100,000 CFU per mL of non uro pathogenic Gram-positive organism. Continue ertapenem (6) Acute urinary retention: Code(s): R33.8 - Other retention of urine Status: Acute Assessment and Plan: Status post Rich catheter placement (7) Acute hypokalemia: Code(s): E87.6 - Hypokalemia Status: Acute Assessment and Plan: Will replace potassium (8) Elevated CPK: Code(s): R74.8 - Abnormal levels of other serum enzymes Status: Acute Assessment and Plan: CK levels continue to improve. Continue to Monitor Plan DVT prophylaxis -Lovenox Stress ulcer prophylaxis -PPI Nutrition -advance to regular diet. Code Status - Full Code Due to a high probability of clinically significant, life threatening deterioration, the patient required my highest level of preparedness to intervene emergently and I personally spent this critical care time directly and personally managing the patient. This critical care time included obtaining a history; examining the patient; pulse oximetry; ordering and review of studies; arranging urgent treatment with development of a management plan; evaluation of patient's response to treatment; frequent reassessment; and discussions with other providers. It was exclusive of separately billable procedures and treating other patients and teaching time. Please see Assessment and Plan section and the rest of the note for further information on patient assessment and treatment Subjective Date/time seen: 02/02/25 09:10 Interval history: Patient seen and examined in the ICU as an IMU or flow for the hospitalist team -awake, alert, oriented, denies any complaints, states he feels much better. She did eat her breakfast. Has been off Precedex since yesterday. Hemodynamically stable, adequate urine output. No issues overnight Review of Systems Review of Systems: All systems reviewed & are unremarkable except as noted in HPI and below (HPI) Exam Narrative: General: Pt is alert awake and in NAD Lungs/Chest: Trachea central Clear BS B/L, No crackles or wheezing. Cardiac: RRR. Normal S1 S2. No murmurs Circulation: Pedal pulses are intact and symmetrical. Abdomen: Normal bowel sounds. Diabetes. Soft. NT. ND. Extremities: No clubbing, cyanosis or edema. Warm : Rich in place Neurologic: Patient is awake, calm and oriented x 3, she moves all 4 extremity and follow commands. PERRL. No facial asymmetry noticed. Speech is normal. Skin: No Rash Objective Data Vital Signs Vital Signs: Vital Signs - 24 hr 02/01/25 09:30 02/01/25 10:00 02/01/25 10:00 Temperature Pulse Rate 58 L 58 L 60 Respiratory Rate 19 15 Blood Pressure 108/70 Pulse Oximetry 98 Oxygen Delivery Fraction of Inspired Oxygen 02/01/25 10:00 02/01/25 10:00 02/01/25 11:00 Temperature Pulse Rate 58 L 60 64 Respiratory Rate 15 19 15 Blood Pressure 108/70 Pulse Oximetry 97 Oxygen Delivery Fraction of Inspired Oxygen 02/01/25 12:00 02/01/25 12:00 02/01/25 12:00 Temperature 97.8 F Pulse Rate 73 62 Respiratory Rate 21 H 15 Blood Pressure 143/87 H Pulse Oximetry 99 99 Oxygen Delivery Room Air Fraction of Inspired Oxygen 02/01/25 12:00 02/01/25 14:00 02/01/25 14:00 Temperature Pulse Rate 72 85 90 Respiratory Rate 19 Blood Pressure 131/98 H Pulse Oximetry 98 Oxygen Delivery Fraction of Inspired Oxygen 02/01/25 14:00 02/01/25 16:00 02/01/25 16:00 Temperature 98.5 F Pulse Rate 90 108 H Respiratory Rate 19 23 H Blood Pressure 154/90 H Pulse Oximetry 98 98 Oxygen Delivery Room Air Fraction of Inspired Oxygen 02/01/25 16:00 02/01/25 17:13 02/01/25 18:00 Temperature Pulse Rate 92 103 H 101 H Respiratory Rate 18 Blood Pressure 139/63 Pulse Oximetry 98 Oxygen Delivery Fraction of Inspired Oxygen 02/01/25 20:00 02/01/25 20:00 02/01/25 20:00 Temperature 98.7 F Pulse Rate 101 H 100 Respiratory Rate 21 H Blood Pressure 143/63 H Pulse Oximetry 95 95 Oxygen Delivery Room Air Fraction of Inspired Oxygen 02/01/25 20:58 02/01/25 22:00 02/02/25 00:00 Temperature Pulse Rate 110 H Respiratory Rate Blood Pressure Pulse Oximetry 98 94 Oxygen Delivery Room Air Room Air Fraction of Inspired Oxygen 21 02/02/25 00:00 02/02/25 00:00 02/02/25 02:00 Temperature 98.5 F Pulse Rate 93 96 89 Respiratory Rate 18 Blood Pressure 129/66 Pulse Oximetry 94 Oxygen Delivery Fraction of Inspired Oxygen 02/02/25 04:00 02/02/25 04:00 02/02/25 04:00 Temperature 98.1 F Pulse Rate 84 84 Respiratory Rate 18 Blood Pressure 121/58 L Pulse Oximetry 94 94 Oxygen Delivery Room Air Fraction of Inspired Oxygen 02/02/25 06:00 02/02/25 08:00 Temperature 98.6 F Pulse Rate 81 107 H Respiratory Rate 18 Blood Pressure 125/70 Pulse Oximetry 95 Oxygen Delivery Fraction of Inspired Oxygen Intake/Output Intake/Output: Intake & Output 05/24/25 01/31/25 02/01/25 02/02/25 23:59 23:59 23:59 23:59 Intake Total 2312 4321.23 4482.5 1172.5 Output Total 3025 4050 1500 Balance 2312 1296.23 432.5 -327.5 Meds/Results Medications: Active Medications Generic Name Dose Route Start Last Admin Trade Name Freq PRN Reason Stop Dose Admin Acetaminophen 650 mg 02/01/25 19:57 02/02/25 08:59 Acetaminophen 325 Mg Tablet PO 650 mg Q4H PRN Administration Mild Pain (1-3) or Fever Benztropine Mesylate 1 mg 02/01/25 17:00 02/02/25 08:54 Benztropine Mesylate 1 Mg Tablet PO 1 mg BID BENEDICTO Administration Buspirone HCl 30 mg 02/01/25 17:00 02/02/25 08:53 Buspirone Hcl 10 Mg Tablet PO 30 mg BID BENEDICTO Administration Chlorpromazine HCl 50 mg 02/01/25 17:00 02/02/25 08:54 Chlorpromazine Hcl 25 Mg Tablet PO 50 mg BID BENEDICTO Administration Enoxaparin Sodium 40 mg 01/31/25 09:00 02/02/25 08:53 Enoxaparin 40 Mg/0.4 Ml Syringe SUB-Q 40 mg DAILY BENEDICTO Administration Ertapenem 1 gm in 50 mls @ 100 mls/hr 01/31/25 21:00 02/01/25 20:55 Invanz 1 Gm/Ns 50 Ml IVPB Infused Q24H BENEDICTO Infusion Lactated Ringer's 1,000 mls @ 75 mls/hr 02/01/25 07:40 02/02/25 05:05 Lr - Lactated Ringers Iv IV CONT 75 mls/hr .[id number] BENEDICTO Administration Ondansetron HCl 4 mg 01/31/25 04:01 Ondansetron Inj 4 Mg/2 Ml Vial IV PUSH Q4H PRN Nausea Oxycodone HCl 5 mg 02/01/25 07:47 Oxycodone Hcl (*Crx) 5 Mg Tab Ir PO Q4H PRN Pain Rated 7-10 Pantoprazole Sodium 40 mg 01/31/25 09:00 02/02/25 08:54 Pantoprazole Sodium Iv 40 Mg Vial IV PUSH 40 mg QAM BENEDICTO Administration Prazosin HCl 5 mg 02/01/25 21:00 02/01/25 20:26 Prazosin Hcl 5 Mg Capsule PO 5 mg HS BENEDICTO Administration Sertraline HCl 200 mg 02/02/25 09:00 02/02/25 08:53 Sertraline Hcl 50 Mg Tablet PO 200 mg DAILY BENEDICTO Administration Radiology Results: ITS Impressions Head CT 01/31/25 06:52 Impression: No large acute intracranial hemorrhage or suspicious significant mass effect. Chest X-Ray 01/31/25 07:18 IMPRESSION: Left-sided pleural effusion without focal infiltrate. Chest/Abdomen/Pelvis CT 01/31/25 07:30 IMPRESSION: No hollow or solid visceral organ injury. Moderate gallbladder distention with prominence of the common bile duct for which follow-up ultrasound is suggested. Bilateral hydroureteronephrosis without an obstructing stone visualized. Moderate bladder distention. Cervical Spine CT 01/31/25 07:45 Impression: Straightening and slight reversal of the normal curvature of the cervical spine, likely muscular in origin. Degenerative disease, without acute fracture. Labs Labs: Laboratory Results - last 24 hr 02/02/25 02/02/25 04:08 04:32 WBC 5.6 RBC 3.44 L Hgb 12.6 Hct 38.1 MCV 110.8 H MCH 36.6 H MCHC 33.1 RDW 14.6 H Plt Count 263 MPV 9.6 Sodium 139 Potassium 3.3 L Chloride 110 H Carbon Dioxide 22 Anion Gap 7 BUN 4 L Creatinine 0.41 L Estim Creat Clear Calc 120 Estimated GFR > 60 Glucose 85 Calcium 8.5 Magnesium 2.0 Total Bilirubin 0.8 AST 90 H ALT 39 H Alkaline Phosphatase 85 Total Creatine Kinase 975 H Total Protein 7.0 Albumin 3.5 Quality VTE Prophylaxis VTE prophylaxis: pharmacologic ordered
--- NOTE | 2025-02-02 12:30 | P.PSYCH_ITS ---
Assessment and Plan Assessment and plan (1) Opiate overdose: Code(s): T40.601A - Poisoning by unspecified narcotics, accidental (unintentional), initial encounter Status: Acute (2) Substance use disorder: Code(s): F19.90 - Other psychoactive substance use, unspecified, uncomplicated Status: Acute (3) Schizoaffective disorder: Qualifiers: Schizoaffective disorder type: bipolar Qualified Code(s): F25.0 - Schizoaffective disorder, bipolar type Code(s): F25.9 - Schizoaffective disorder, unspecified Status: Acute Plan Problem-Based Assessment and Plan Mahnaz Oseguera, a patient with a history of bipolar disorder and substance abuse, presented after an overdose on butalbital, resulting in hospitalization and ICU admission. Substance Use Disorder and Bipolar disorder vs Schizoaffective disorder Assessment: Patient reports recent overdose on butalbital, consuming approximately 50 tablets in 9 days. She admits to taking the medication to get high rather than for self-harm. History of polysubstance abuse including marijuana, alcohol, acid, and mushrooms. Previous drug and alcohol rehabilitation approximately 1.5 years ago. Recent pattern of substance misuse indicates ongoing struggle with addiction and potential for life-threatening complications. Plan: - Recommend transfer to psychiatric hospital for further evaluation and treatment - [facility] to evaluate patient for appropriate psychiatric facility placement Bipolar Disorder Assessment: Long-standing history of bipolar disorder diagnosed in teens. Patient describes manic episodes characterized by rapid speech, racing thoughts, insomnia, and impulsivity, lasting approximately one week. Reports current depressive symptoms despite antidepressant therapy. Multiple psychiatric hospitalizations, with the most recent 2-3 months ago for similar substance- related issues. Current outpatient medication regimen includes Thorazine, BuSpar, Zoloft, and Cogentin. Plan: - Continue current psychiatric medications: - Thorazine 100 mg po bid - BuSpar 30 mg po bid - Zoloft 200mg po qd - Cogentin 1 mg po BID - Transfer to psychiatric hospital for comprehensive evaluation and management of bipolar disorder in the context of recent substance use. She was willing to get transfer to psychiatric hospital at the time of interview. Suicidal Ideation Assessment: Patient denies current suicidal intent, stating that the recent overdose was not an attempt to harm herself. However, she reports a history of a brother who by suicide, which may increase her risk for suicidal behavior. Given the recent overdose and history of psychiatric hospitalizations, close monitoring and assessment of suicide risk is warranted. Plan: - Continuous suicide risk assessment during psychiatric hospitalization - Develop safety plan as part of comprehensive psychiatric treatment HPI Data of Consult Date/Time: 02/02/25 12:30 Requesting Physician: Asia Go DO Primary Care Provider: Neil Barbour, Consult Narrative Narrative: Chief Complaint Butabital overdose, I took some Butabital, I wasn't trying to hurt myself, I was trying to get high History of Present Illness Mahnaz Oseguera, a woman with a history of bipolar disorder, presents following an overdose on butalbital. She reports taking at least one tablet every 8 hours over a 9-day period, consuming approximately 50 tablets in total. The patient states she was not trying to harm herself but was attempting to get high. The overdose resulted in confusion and incoherence, leading to her mother calling an ambulance. According to EMS report patient's mother heard the patient yelling out for her. When her mother arrived to the room she found the patient laying on the floor sliding in out from under her bed. The patient had just had her prescription for [place] #80 tablets filled on the and Fioricet #50 filled on the the patient's bottles were empty. Patient's mother reports that the patient did not take the medications in attempt to harm herself. She states that the patient is always ?looking for that freaking high.? The patient is unable to verify intent of medication ingestion due to patient's altered mental status. The patient was intermittently calling out for her mother in the ER. Then once she received some sedation medications although she did not calm downShe was Mahnaz was subsequently admitted to the ICU. She has a history of multiple psychiatric hospitalizations, with the most recent occurring 2-3 months ago at [facility] for the same reason (medication misuse). In the past two years, she reports having 2-3 psychiatric hospitalizations. Mahnaz describes her bipolar manic episodes as characterized by rapid speech, racing thoughts, and complete insomnia. These episodes typically last about a week. She reports current depressive symptoms, stating she is still sad despite taking antidepressants. A significant stressor is the suicide of her brother, which she mentions in relation to her mood. The patient's current outpatient medication regimen for bipolar disorder includes Thorazine 100mg twice daily, BuSpar 3mg twice daily, Zoloft 200mg daily, and Cogentin 1mg twice daily. She denies any history of psychosis or schizophrenia. Mahnaz has a history of polysubstance use, including marijuana, alcohol, acid, and mushrooms. She reports attending drug and alcohol rehabilitation approximately a year and a half ago. Medical History - Psychiatric hospitalization 2-3 months ago at [facility] for substance abuse - Multiple psychiatric hospitalizations in the past 2-3 years (2-3 total) - History of substance abuse, including marijuana, alcohol, acid, and mushrooms - Drug and alcohol rehabilitation approximately 1.5 years ago - Bipolar disorder diagnosed in teens, with manic episodes lasting about a week - Several psychiatric hospitalizations throughout life due to bipolar disorder Family History - Brother: Committed suicide Medications and Supplements Patient takes Thorazine 100 mg twice daily (morning and bedtime) for bipolar disorder. BuSpar 3 mg twice daily (morning and evening). Zoloft 200 mg daily. Cogentin 1 mg twice daily. Patient recently overdosed on Butabital, using 50 tablets in 9 days. Patient reports taking at least one tablet every 8 hours during this period. Social History - Marital Status: Single - Substance Use: History of polysubstance abuse including marijuana, alcohol, acid, and mushrooms. Recent misuse of prescription medications (Butabital). Drug and alcohol rehab approximately 1.5 years ago. - Living Situation: Lives with mother - Trauma History: Brother committed suicide Review of Systems 2 Review of Systems: Review of Systems The patient reports symptoms primarily in the psychiatric domain. She experiences rapid speech, racing thoughts, and insomnia during manic episodes, which typically last about a week. The patient also reports ongoing sadness despite taking antidepressants. No auditory or visual hallucinations are reported. In terms of general symptoms, the patient mentions confusion following a recent medication overdose. [facility] Past Medical History Medical History (Updated 02/02/25 @ 12:33 by Edgardo Marroquin MD) Bipolar mood disorder Methamphetamine use GERD (gastroesophageal reflux disease) Major depression with psychotic features Carpal tunnel syndrome of right wrist Carcinoma of right ureter SVT (supraventricular tachycardia) Hepatitis C Alcohol abuse Schizoaffective disorder [place] toxicity Due to overdose/suicide attempt Requiring temporary dialysis Tobacco dependence Chronic obstructive pulmonary disease Distal radial fracture December 2022 Ankle fracture, lateral malleolus, closed December 2022 Seizure Migraine Anxiety Suicide attempt Multiple hospitalizations for suicide attempt with history of cutting Surgical History Surgical History History of right salpingo-oophorectomy Due to ectopic Status post lumbar discectomy (~1999) L5-S1 Status post open reduction with internal fixation of fracture Cervical spine fracture History of ureterostomy History of kidney surgery H/O dilation and curettage H/O tubal ligation History of tonsillectomy H/O foot surgery 2021 X2 H/O: hysterectomy 2000 hysterectomy with left oophorectomy Family History Family History Father Alcoholism Grandparent Diabetes mellitus Hypertension Heart disease Mother Kidney disease Grandparent Alcoholism Social History Social History Social History: Surrogate medical decision maker: Landy Sosadanielleyanira, mother. Code status: Full code. Smoking packs per day: 1.5 Smoking cigarettes per day: 30.0 Years smoked: 45 Smoking pack-years: 67.50 Smoking status: Current every day smoker Tobacco type: cigarettes Second hand tobacco smoke exposure: No Alcohol intake: unknown Substance use: current Substance use type: painkillers and prescription drug Other substance usage details: Fioricet and [place] Last use: 01/30/2025 Lack of Transportation: No Lack of Food: Never True Current Housing: I Have Housing Concerned About Future Housing: No Difficulty Paying Gas/Electric Bills: No Difficulty Paying for Meds: No Currently Unemployed: No Education: High School Diploma/GED Difficulty w/ Childcare or Family Care: No Living arrangements: with family Additional living arrangements comments: Lives with mother in [place]. Occupation/Education: unemployed Additional occupation/education comments: Disabled. Spiritual care concerns: No Meds Home Medications and Allergies Home Medications ?Medication ?Instructions ?Recorded ?Confirmed ?Type benztropine 2 mg tablet 2 mg PO BID PRN involuntary 04/18/22 01/31/25 History movement prazosin 5 mg capsule 10 mg PO HS 04/18/22 01/31/25 History chlorpromazine 100 mg tablet 100 mg PO BID 03/27/23 02/01/25 History gabapentin 300 mg capsule 600 mg PO TID 05/25/23 02/01/25 History [id number]-[id number]-otsioipw 1 tablet PO Q8H PRN Headache 07/26/24 01/31/25 History 50 mg-325 mg-40 mg tablet cyclobenzaprine 10 mg tablet 10 mg PO BID 07/26/24 02/01/25 History benztropine 1 mg tablet 1 mg PO BID 01/31/25 01/31/25 History buspirone 30 mg tablet 30 mg PO BID 01/31/25 01/31/25 History chlorpromazine 25 mg tablet 25 mg PO DAILY 01/31/25 02/01/25 History hydrocodone 5 mg-acetaminophen 325 1 tablet PO TID PRN pain 01/31/25 01/31/25 History mg tablet ondansetron 4 mg disintegrating 4 mg translingual TID PRN nausea 01/31/25 01/31/25 History tablet and vomiting potassium chloride 20 mEq 20 meq PO DAILY 01/31/25 01/31/25 History tablet,extended release sertraline 100 mg tablet 200 mg PO DAILY 01/31/25 02/01/25 History Allergies Allergy/AdvReac Type Severity Reaction Status Date / Time grass pollen Allergy Intermediate Hives Verified 11/15/24 13:39 amoxicillin (From Augmentin) Allergy Hives Verified 11/15/24 13:39 asenapine (From Saphris) Allergy Hives Verified 11/15/24 13:39 bacitracin (From Neosporin Allergy Rash Verified 11/15/24 13:39 ([id number])) clavulanic acid (From Allergy Hives Verified 11/15/24 13:39 Augmentin) erythromycin base Allergy Hives Verified 11/15/24 13:39 latex Allergy Rash Verified 11/15/24 13:39 neomycin (From Neosporin Allergy Rash Verified 11/15/24 13:39 ([id number])) polymyxin B (From Neosporin Allergy Rash Verified 11/15/24 13:39 ([id number])) risperidone (From Risperdal) Allergy Hives Verified 11/15/24 13:39 tramadol (From Ultram) Allergy Rash Verified 11/15/24 13:39 ciprofloxacin AdvReac Vomiting Verified 11/15/24 13:39 ibuprofen AdvReac Vomiting Verified 11/15/24 13:39 Steriod AdvReac Agitated Uncoded 11/15/24 13:39 Vital Signs Vital Signs - 24 hr 02/01/25 14:00 02/01/25 14:00 02/01/25 14:00 Temperature Pulse Rate 85 90 90 Respiratory Rate 19 19 Blood Pressure 131/98 H Pulse Oximetry 98 Oxygen Delivery Fraction of Inspired Oxygen 02/01/25 16:00 02/01/25 16:00 02/01/25 16:00 Temperature 98.5 F Pulse Rate 108 H 92 Respiratory Rate 23 H Blood Pressure 154/90 H Pulse Oximetry 98 98 Oxygen Delivery Room Air Fraction of Inspired Oxygen 02/01/25 17:13 02/01/25 18:00 02/01/25 20:00 Temperature 98.7 F Pulse Rate 103 H 101 H 101 H Respiratory Rate 18 21 H Blood Pressure 139/63 143/63 H Pulse Oximetry 98 95 Oxygen Delivery Fraction of Inspired Oxygen 02/01/25 20:00 02/01/25 20:00 02/01/25 20:58 Temperature Pulse Rate 100 Respiratory Rate Blood Pressure Pulse Oximetry 95 98 Oxygen Delivery Room Air Room Air Fraction of Inspired Oxygen 21 02/01/25 22:00 02/02/25 00:00 02/02/25 00:00 Temperature 98.5 F Pulse Rate 110 H 93 Respiratory Rate 18 Blood Pressure 129/66 Pulse Oximetry 94 94 Oxygen Delivery Room Air Fraction of Inspired Oxygen 02/02/25 00:00 02/02/25 02:00 02/02/25 04:00 Temperature 98.1 F Pulse Rate 96 89 84 Respiratory Rate 18 Blood Pressure 121/58 L Pulse Oximetry 94 Oxygen Delivery Fraction of Inspired Oxygen 02/02/25 04:00 02/02/25 04:00 02/02/25 06:00 Temperature Pulse Rate 84 81 Respiratory Rate Blood Pressure Pulse Oximetry 94 Oxygen Delivery Room Air Fraction of Inspired Oxygen 02/02/25 08:00 02/02/25 08:00 02/02/25 08:00 Temperature 98.6 F Pulse Rate 107 H 107 H 95 Respiratory Rate 18 18 Blood Pressure 125/70 Pulse Oximetry 95 95 Oxygen Delivery Room Air Fraction of Inspired Oxygen 02/02/25 10:00 Temperature Pulse Rate 103 H Respiratory Rate Blood Pressure Pulse Oximetry Oxygen Delivery Fraction of Inspired Oxygen Exam 2 Narrative: Mental Status Examination The patient presented with some confusion, as evidenced by her report of being confused upon arrival at the hospital. Her speech was notable for rapid speech during manic episodes, which she described as part of her bipolar disorder. The patient's mood was described as sad despite taking antidepressants. Thought process appeared generally linear and goal-directed throughout the interview. Regarding perceptions, the patient explicitly denied hearing voices or experiencing hallucinations. Cognitively, the patient demonstrated the ability to recall and report specific medication dosages and timing, suggesting intact recent memory and attention. Insight appeared fair, as the patient acknowledged her history of bipolar disorder and past psychiatric hospitalizations. Judgment was impaired, as evidenced by the recent overdose on prescription medication, which the patient attributed to attempting to get high rather than self-harm. Results Labs 02/02/25 04:32 02/02/25 04:08 Labs: Short CBC 02/02/25 Range/Units 04:32 WBC 5.6 (4.5-10.0) K/mm3 Hgb 12.6 (12.0-15.0) g/dL Hct 38.1 (37.0-47.0) % Plt Count 263 (150-375) k/mm3 BMP 02/02/25 04:08 Sodium 139 Potassium 3.3 L Chloride 110 H Carbon Dioxide 22 BUN 4 L Creatinine 0.41 L Glucose 85 Calcium 8.5 Cardiac Enzymes 02/02/25 Range/Units 04:08 Total Creatine Kinase 975 H (30-135) U/L Liver Function 02/02/25 Range/Units 04:08 Total Bilirubin 0.8 (0.2-1.3) mg/dL AST 90 H (14-36) U/L ALT 39 H (6-35) U/L Alkaline Phosphatase 85 (38-126) U/L Albumin 3.5 (3.5-5.1) g/dL
[2025-02-02] MEDS: LOPERAMIDE HCL 2 MG CAPSULE PO ×2 (13:25→19:59)
[2025-02-02 13:40] LABS: Creatine Kinase 1227 U/L (30-135)
[2025-02-02] MEDS: GABAPENTIN 300 MG CAPSULE 600 MG PO (19:58)
[2025-02-02] MEDS: oxyCODONE HCL (*CRX) 5 MG TAB IR PO (19:59)
[2025-02-02] MEDS: PRAZOSIN HCL 5 MG CAPSULE PO (19:59)
[2025-02-02] MEDS: NICOTINE (*PBKC) 21 MG PATCH 1 PATCH TRANSDERM (22:49)
[2025-02-03 04:09] LABS: Hematocrit 36.1 % (37.0-47.0); Hemoglobin 12.3 g/dL (12.0-15.0); Mean Corpuscular HGB Conc 34.1 g/dl (32-36); Mean Corpuscular Volume 111.4 fl (80-100); Mean Platelet Volume 9.5 fl (7.4-10.4); Platelet Count Result 261 k/mm3 (150-375); Red Blood Count 3.24 M/mm3 (4.2-5.4); Red Cell Distribution Width 14.8 % (11.5-14.5); White Blood Count 6.1 K/mm3 (4.5-10.0)
[2025-02-03 04:24] LABS: Creatine Kinase 1292 U/L (30-135)
[2025-02-03 04:25] LABS: Alanine Aminotransferase 49 U/L (6-35); Albumin Level 3.4 g/dL (3.5-5.1); Alkaline Phosphatase 83 U/L (38-126); Anion Gap 5 mmol/L (4-12); Aspartate Amino Transferase 101 U/L (14-36); Bilirubin,Total 0.5 mg/dL (0.2-1.3); Blood Urea Nitrogen 4 mg/dL (7-17); Calcium 8.5 mg/dL (8.4-10.2); Carbon Dioxide 29 mmol/L (22-30); Chloride 105 mmol/L (98-107); Estimated CRCL calculation 131 ml/min; Estimated Glomerular Filt Rate > 60; Glucose 114 mg/dL (65-110); Magnesium 1.7 mg/dL (1.6-2.3); Potassium 3.1 mmol/L (3.4-5.0); Sodium 139 mmol/L (137-145)
[2025-02-03] MEDS: oxyCODONE HCL (*CRX) 5 MG TAB IR PO (05:50)
[2025-02-03 08:00] VITALS: BP 118/71; PULSE 84; RESP 18; TEMP 37; O2SAT 94
[2025-02-03] MEDS: LACTATED RINGERS 1,000 ML 75 ML IV CONT ×2 (08:04→16:41)
[2025-02-03] MEDS: LACTATED RINGERS 1,000 ML 999 ML IV CONT (08:06)
[2025-02-03] MEDS: busPIRone HCL 10 MG TABLET 30 MG PO ×2 (08:52→16:40)
[2025-02-03] MEDS: BENZTROPINE MESYLATE 1 MG TABLET PO ×2 (08:52→22:15)
[2025-02-03] MEDS: chlorproMAZINE HCL 25 MG TABLET 50 MG PO ×2 (08:52→22:15)
[2025-02-03] MEDS: GABAPENTIN 300 MG CAPSULE 600 MG PO ×3 (08:52→22:15)
[2025-02-03] MEDS: ENOXAPARIN 40 MG/0.4 ML SYRINGE SUB-Q (08:53)
[2025-02-03] MEDS: SERTRALINE HCL 50 MG TABLET 200 MG PO (08:53)
[2025-02-03] MEDS: PANTOPRAZOLE SODIUM IV 40 MG VIAL IV PUSH (08:53)
[2025-02-03] MEDS: NICOTINE (*PBKC) 21 MG PATCH 1 PATCH TRANSDERM (08:53)
--- NOTE | 2025-02-03 09:58 | P.PNIM_ITS ---
Progress Note: A&P Assessment and Plan (1) Agitation: Code(s): R45.1 - Restlessness and agitation Status: Inactive Assessment and Plan: Patient has a baseline history of schizophrenia and now comes with acute a gitation which is likely multifactorial and combination of polypharmacy with side effects, drug overdose, baseline psychiatric illness and possibly UTI Off Precedex infusion> 24 hours -patient has been restarted on her home Cogentin, BuSpar, chlorpromazine, central Clinically she has improved significantly and is now, appropriate and oriented Patient does have one-to-one sitter Seroquel low dose of ordered at night (2) Schizophrenia: Code(s): F20.9 - Schizophrenia, unspecified Status: Acute Assessment and Plan: Restarted home medications (3) GERD (gastroesophageal reflux disease): Qualifiers: Esophagitis presence: esophagitis presence not specified Qualified Code(s): K21.9 - Gastro-esophageal reflux disease without esophagitis Code(s): K21.9 - Gastro-esophageal reflux disease without esophagitis Status: Acute Assessment and Plan: Continue PPI (4) Overdose on Tylenol: Qualifiers: Encounter type: initial encounter Injury intent: undetermined intent Qualified Code(s): T39.1X4A - Poisoning by 4-Aminophenol derivatives, undetermined, initial encounter Code(s): T39.1X1A - Poisoning by 4-Aminophenol derivatives, accidental (unintentional), initial encounter Status: Acute Assessment and Plan: She has completed her N-acetylcysteine infusion protocol LFTs have improved and acetaminophen level has clear Poison control signed off -care coordination in crisis management to evaluate -appreciate psychiatry evaluation recommendation -patient is agreed to inpatient psychiatry unit -will have care coordination and crisis management evaluate the patient once a CK levels start improving (5) Urinary tract infection: Code(s): N39.0 - Urinary tract infection, site not specified Status: Acute Assessment and Plan: 01/30/2025: Urine culture shows greater than 100,000 CFU per mL of non uro pathogenic Gram-positive organism. DC Ertapenem 02/02 (6) Acute urinary retention: Code(s): R33.8 - Other retention of urine Status: Acute Assessment and Plan: Status post Rich catheter placement (7) Acute hypokalemia: Code(s): E87.6 - Hypokalemia Status: Acute Assessment and Plan: Will replace potassium (8) Elevated CPK: Code(s): R74.8 - Abnormal levels of other serum enzymes Status: Acute Assessment and Plan: -CK levels continue to improve. Continue to Monitor -will give additional IV fluid bolus -nephrology consult Plan DVT prophylaxis -Lovenox Stress ulcer prophylaxis -PPI Nutrition -advance to regular diet. Code Status - Full Code Due to a high probability of clinically significant, life threatening deterioration, the patient required my highest level of preparedness to intervene emergently and I personally spent this critical care time directly and personally managing the patient. This critical care time included obtaining a history; examining the patient; pulse oximetry; ordering and review of studies; arranging urgent treatment with development of a management plan; evaluation of patient's response to treatment; frequent reassessment; and discussions with other providers. It was exclusive of separately billable procedures and treating other patients and teaching time. Please see Assessment and Plan section and the rest of the note for further information on patient assessment and treatment Subjective Date/time seen: 02/03/25 09:58 Interval history: Patient seen and examined in the ICU as an IMU or flow for the hospitalist team -awake, alert, oriented, denies any complaints, states he feels much better. She did eat her breakfast. Has been off Precedex since yesterday. Hemodynamically stable, adequate urine output. No issues overnight Review of Systems Review of Systems: All systems reviewed & are unremarkable except as noted in HPI and below (HPI) Exam Narrative: General: Pt is alert awake and in NAD Lungs/Chest: Trachea central Clear BS B/L, No crackles or wheezing. Cardiac: RRR. Normal S1 S2. No murmurs Circulation: Pedal pulses are intact and symmetrical. Abdomen: Normal bowel sounds. Diabetes. Soft. NT. ND. Extremities: No clubbing, cyanosis or edema. Warm : Rich in place Neurologic: Patient is awake, calm and oriented x 3, she moves all 4 extremity and follow commands. PERRL. No facial asymmetry noticed. Speech is normal. Skin: No Rash Objective Data Vital Signs Vital Signs: Vital Signs - 24 hr 02/02/25 10:00 02/02/25 16:00 02/02/25 19:50 Temperature Pulse Rate 103 H 82 Respiratory Rate 16 Blood Pressure 138/79 Pulse Oximetry 97 Oxygen Delivery Room Air 02/02/25 20:50 02/02/25 23:57 02/03/25 08:00 Temperature 98.4 F 98.6 F Pulse Rate 79 84 Respiratory Rate 18 18 Blood Pressure 141/75 H 118/71 Pulse Oximetry 98 97 94 Oxygen Delivery Room Air Intake/Output Intake/Output: Intake & Output 01/31/25 02/01/25 02/02/25 02/03/25 23:59 23:59 23:59 23:59 Intake Total 4321.23 4482.5 2992.5 1646.2 Output Total 3025 4050 2700 Balance 1296.23 432.5 292.5 1646.2 Meds/Results Medications: Active Medications Generic Name Dose Route Start Last Admin Trade Name Freq PRN Reason Stop Dose Admin Acetaminophen 650 mg 02/01/25 19:57 02/02/25 08:59 Acetaminophen 325 Mg Tablet PO 650 mg Q4H PRN Administration Mild Pain (1-3) or Fever Benztropine Mesylate 1 mg 02/01/25 17:00 02/03/25 08:52 Benztropine Mesylate 1 Mg Tablet PO 1 mg BID BENEDICTO Administration Buspirone HCl 30 mg 02/01/25 17:00 02/03/25 08:52 Buspirone Hcl 10 Mg Tablet PO 30 mg BID BENEDICTO Administration Chlorpromazine HCl 50 mg 02/01/25 17:00 02/03/25 08:52 Chlorpromazine Hcl 25 Mg Tablet PO 50 mg BID BENEDICTO Administration Enoxaparin Sodium 40 mg 01/31/25 09:00 02/03/25 08:53 Enoxaparin 40 Mg/0.4 Ml Syringe SUB-Q 40 mg DAILY BENEDICTO Administration Gabapentin 600 mg 02/02/25 19:50 02/03/25 08:52 Gabapentin 300 Mg Capsule PO 600 mg TID BENEDICTO Administration Lactated Ringer's 1,000 mls @ 75 mls/hr 02/01/25 07:40 02/03/25 08:04 Lr - Lactated Ringers Iv IV CONT 75 mls/hr .[id number] BENEDICTO Administration Loperamide HCl 2 mg 02/02/25 13:00 02/02/25 19:59 Loperamide Hcl 2 Mg Capsule PO 2 mg PRN PRN Administration Diarrhea Nicotine 1 patch 02/02/25 22:45 02/03/25 08:53 Nicotine (*Pbkc) 21 Mg Patch TRANSDERM 1 patch DAILY BENEDICTO Administration Ondansetron HCl 4 mg 01/31/25 04:01 Ondansetron Inj 4 Mg/2 Ml Vial IV PUSH Q4H PRN Nausea Oxycodone HCl 5 mg 02/01/25 07:47 02/03/25 05:50 Oxycodone Hcl (*Crx) 5 Mg Tab Ir PO 5 mg Q4H PRN Administration Pain Rated 7-10 Pantoprazole Sodium 40 mg 01/31/25 09:00 02/03/25 08:53 Pantoprazole Sodium Iv 40 Mg Vial IV PUSH 40 mg QAM BENEDICTO Administration Prazosin HCl 5 mg 02/01/25 21:00 02/02/25 19:59 Prazosin Hcl 5 Mg Capsule PO 5 mg HS BENEDICTO Administration Sertraline HCl 200 mg 02/02/25 09:00 02/03/25 08:53 Sertraline Hcl 50 Mg Tablet PO 200 mg DAILY BENEDICTO Administration Radiology Results: ITS Impressions Head CT 01/31/25 06:52 Impression: No large acute intracranial hemorrhage or suspicious significant mass effect. Chest X-Ray 01/31/25 07:18 IMPRESSION: Left-sided pleural effusion without focal infiltrate. Chest/Abdomen/Pelvis CT 01/31/25 07:30 IMPRESSION: No hollow or solid visceral organ injury. Moderate gallbladder distention with prominence of the common bile duct for which follow-up ultrasound is suggested. Bilateral hydroureteronephrosis without an obstructing stone visualized. Moderate bladder distention. Cervical Spine CT 01/31/25 07:45 Impression: Straightening and slight reversal of the normal curvature of the cervical spine, likely muscular in origin. Degenerative disease, without acute fracture. Labs Labs: Laboratory Results - last 24 hr 02/02/25 02/03/25 13:20 03:58 WBC 6.1 RBC 3.24 L Hgb 12.3 Hct 36.1 L MCV 111.4 H MCH 38.0 H MCHC 34.1 RDW 14.8 H Plt Count 261 MPV 9.5 Sodium 139 Potassium 3.1 L Chloride 105 Carbon Dioxide 29 Anion Gap 5 BUN 4 L Creatinine 0.37 L Estim Creat Clear Calc 131 Estimated GFR > 60 Glucose 114 H Calcium 8.5 Magnesium 1.7 Total Bilirubin 0.5 AST 101 H ALT 49 H Alkaline Phosphatase 83 Total Creatine Kinase 1227 H 1292 H Total Protein 7.0 Albumin 3.4 L Quality VTE Prophylaxis VTE prophylaxis: pharmacologic ordered
[2025-02-03] MEDS: oxyCODONE HCL (*CRX) 2.5 MG TAB IR 7.5 MG PO ×2 (10:19→16:40)
[2025-02-03] MEDS: ONDANSETRON INJ 4 MG/2 ML VIAL IV PUSH (11:09)
[2025-02-03] MEDS: SALINE 0.65% NAS SOLN 44 ML BTL 1 SPRAY NASAL (11:13)
[2025-02-03] MEDS: POTASSIUM CHLORIDE 20 MEQ ER TABLET 80 MEQ PO (13:04)
--- NOTE | 2025-02-03 13:06 | P.CONNP_ITS ---
Assessment and Plan Assessment and plan (1) Elevated CPK: Code(s): R74.8 - Abnormal levels of other serum enzymes Status: Acute Assessment and Plan: * etiology not clear * however, levels not consistent with rhabdomyolysis * encourage fluid intake * gentle IVFs * follow trend of CPK (2) Hypokalemia: Code(s): E87.6 - Hypokalemia Status: Acute Assessment and Plan: * replace as needed * follow magnesium level as well * follow trend of K+ (3) Overdose on Tylenol: Qualifiers: Encounter type: initial encounter Injury intent: undetermined intent Q ualified Code(s): T39.1X4A - Poisoning by 4-Aminophenol derivatives, undetermined, initial encounter Code(s): T39.1X1A - Poisoning by 4-Aminophenol derivatives, accidental (unintentional), initial encounter Status: Acute Assessment and Plan: * s/p completion of N-acetylcysteine infusion protocol * LFTs improving * acetaminophen level has normalized * Psychiatry evaluation noted * tentatively plan inpatient psychiatry care once medically stable (4) Schizophrenia: Code(s): F20.9 - Schizophrenia, unspecified Status: Chronic Assessment and Plan: * resumed on home medications I will continue to follow the patient with you while she remains hospitalized and make further recommendations as deemed necessary. Thank you for allowing me to participate in the care of this patient. L History of Present Illness Reason for Consult Consult date: 02/03/25 Reason for consult: Other (elevated creatinine kinase) Chief Complaint Chief complaint: Poly pharmacy; AMS History of Present Illness Narrative: Most of the history that I have obtained is from review of the electronic medical record as well as discussion with the physician/nurses involved in the patient's care as the patient missed that she is not completely aware of all the events that led to her admission to the hospital. The patient is a 59-year-old female with a past medical history as outlined below who presented to [facility] Emergency Room via EMS after being found unresponsive. According to EMS report, the patient's mother heard the patient yelling out for her and when the mother arrived to the room where her daughter was located, she found the patient laying on the floor unresponsive after seemingly sliding out from her bed. The patient apparently just had her chronic prescriptions for [place] as well as Fioricet filled few days ago and both bottles were found empty near the patient. The patient's mother stated that she did not think the patient took the medications in attempt to harm herself however, the patient has a well-documented history suicide attempts in the past by overdosing on her medications. No further history was able to be obtained from the patient as she was altered by the time of EMS arrival. Upon evaluation in the ER, the patient was intermittently confused and calling out to her mother prior to becoming significantly agitated. She received several doses of medications including benzodiazepines, Benadryl, Haldol, and Zyprexa in attempt to calm her down. Unfortunately, these medication interventions had limited effect and the patient had to be physically restrained for her own safety. She was eventually started on a Precedex drip which relaxed her enough for blood draw and imaging studies. During her evaluation in the ER, the patient was noted as difficult urinary retention and a Rich catheter was placed with almost 1 L of urine drained. Her blood test showed an elevated Tylenol level and poison Control was contacted due to this finding. She also had mildly elevated LFTs as well and hence was started on a and acetylcysteine infusion. She was subsequently admitted to the ICU for further evaluation and therapy. Since her admission/hospitalization, the patient's clinical course has significantly improved in that her agitation has resolved and her mental status appears to be back to baseline. She completed her course of panel acetylcysteine infusion and her LFTs are slowly improving and her Tylenol level has normalized. However, it has been noted in the last few days that her total CPK level has been mildly elevated and has been rising in the last few days as well. Her total CPK level peaked at around 2056 and had been slowly improving but has yet to normalize and in fact has fluctuated in the last 2 or 3 days. As far as I can tell, she denies any symptoms with regard to her elevated CPK levels at this time. She has been encouraged to orally hydrate herself and is currently receiving IV fluids an attempt to correct this finding. She has no other critical electrolyte abnormalities in conjunction with her elevated total CPK level at this time. Currently, at the time my evaluation, she appears to be in no acute distress. Review of Systems 2 Review of Systems: As per HPI. [facility] Past Medical History Medical History (Updated 02/03/25 @ 15:27 by Brian Sanchez MD) Alcohol abuse Schizoaffective disorder [place] toxicity Due to overdose/suicide attempt Requiring temporary dialysis SVT (supraventricular tachycardia) Tobacco dependence Carcinoma of right ureter Chronic obstructive pulmonary disease Carpal tunnel syndrome of right wrist Hepatitis C Major depression with psychotic features GERD (gastroesophageal reflux disease) Methamphetamine use Distal radial fracture December 2022 Ankle fracture, lateral malleolus, closed December 2022 Seizure Migraine Anxiety Bipolar mood disorder Suicide attempt Multiple hospitalizations for suicide attempt with history of cutting Surgical History Surgical History History of right salpingo-oophorectomy Due to ectopic Status post lumbar discectomy (~1999) L5-S1 Status post open reduction with internal fixation of fracture Cervical spine fracture History of ureterostomy History of kidney surgery H/O dilation and curettage H/O tubal ligation History of tonsillectomy H/O foot surgery 2021 X2 H/O: hysterectomy 2000 hysterectomy with left oophorectomy Family History Family History Father Alcoholism Grandparent Diabetes mellitus Hypertension Heart disease Mother Kidney disease Grandparent Alcoholism Social History Social History Social History: Surrogate medical decision maker: Landy Silva, mother. Code status: Full code. Smoking packs per day: 1.5 Smoking cigarettes per day: 30.0 Years smoked: 45 Smoking pack-years: 67.50 Smoking status: Current every day smoker Tobacco type: cigarettes Second hand tobacco smoke exposure: No Alcohol intake: unknown Substance use: current Substance use type: painkillers and prescription drug Other substance usage details: Fioricet and [place] Last use: 01/30/2025 Lack of Transportation: No Lack of Food: Never True Current Housing: I Have Housing Concerned About Future Housing: No Difficulty Paying Gas/Electric Bills: No Difficulty Paying for Meds: No Currently Unemployed: No Education: High School Diploma/GED Difficulty w/ Childcare or Family Care: No Living arrangements: with family Additional living arrangements comments: Lives with mother in [place]. Occupation/Education: unemployed Additional occupation/education comments: Disabled. Spiritual care concerns: No Meds Home Medications and Allergies Home Medications ?Medication ?Instructions ?Recorded ?Confirmed ?Type benztropine 2 mg tablet 2 mg PO BID PRN involuntary 04/18/22 01/31/25 History movement prazosin 5 mg capsule 10 mg PO HS 04/18/22 01/31/25 History chlorpromazine 100 mg tablet 100 mg PO BID 03/27/23 02/01/25 History gabapentin 300 mg capsule 600 mg PO TID 05/25/23 02/01/25 History [id number]-[id number]-[id number] 1 tablet PO Q8H PRN Headache 07/26/24 01/31/25 History 50 mg-325 mg-40 mg tablet cyclobenzaprine 10 mg tablet 10 mg PO BID 07/26/24 02/01/25 History benztropine 1 mg tablet 1 mg PO BID 01/31/25 01/31/25 History buspirone 30 mg tablet 30 mg PO BID 01/31/25 01/31/25 History chlorpromazine 25 mg tablet 25 mg PO DAILY 01/31/25 02/01/25 History hydrocodone 5 mg-acetaminophen 325 1 tablet PO TID PRN pain 01/31/25 01/31/25 History mg tablet ondansetron 4 mg disintegrating 4 mg translingual TID PRN nausea 01/31/25 01/31/25 History tablet and vomiting potassium chloride 20 mEq 20 meq PO DAILY 01/31/25 01/31/25 History tablet,extended release sertraline 100 mg tablet 200 mg PO DAILY 01/31/25 02/01/25 History Allergies Allergy/AdvReac Type Severity Reaction Status Date / Time grass pollen Allergy Intermediate Hives Verified 11/15/24 13:39 amoxicillin (From Augmentin) Allergy Hives Verified 11/15/24 13:39 asenapine (From Saphris) Allergy Hives Verified 11/15/24 13:39 bacitracin (From Neosporin Allergy Rash Verified 11/15/24 13:39 ([id number])) clavulanic acid (From Allergy Hives Verified 11/15/24 13:39 Augmentin) erythromycin base Allergy Hives Verified 11/15/24 13:39 latex Allergy Rash Verified 11/15/24 13:39 neomycin (From Neosporin Allergy Rash Verified 11/15/24 13:39 ([id number])) polymyxin B (From Neosporin Allergy Rash Verified 11/15/24 13:39 ([id number])) risperidone (From Risperdal) Allergy Hives Verified 11/15/24 13:39 tramadol (From Ultram) Allergy Rash Verified 11/15/24 13:39 ciprofloxacin AdvReac Vomiting Verified 11/15/24 13:39 ibuprofen AdvReac Vomiting Verified 11/15/24 13:39 Steriod AdvReac Agitated Uncoded 11/15/24 13:39 Vital Signs Vital Signs Temp Pulse Resp BP Pulse Ox O2 Del Method 02/03/25 08:00 Room Air 02/03/25 08:00 98.6 F 84 18 118/71 94 02/02/25 23:57 98.4 F 79 18 141/75 H 97 02/02/25 20:50 98 Room Air 02/02/25 19:50 Room Air 02/02/25 16:00 82 16 138/79 97 Exam 2 Narrative: GENERAL APPEARANCE: well developed well nourished female in no acute distress HEENT: normocephalic, atraumatic, normal conjunctiva and sclera, nares patient NECK: no lymphadenopathy, thyromegaly, or JVD MOUTH: normal lips, teeth, and gums CARDIOVASCULAR: RRR, normal S1 and S2, no rub detected RESPIRATORY: clear to auscultation bilaterally ABDOMEN: soft, nontender, nondistended, positive bowel sounds present EXTREMITIES: no evidence of cyanosis, clubbing, or edema NEUROLOGICAL: alert and oriented x 3; CN II - XII intact bilaterally; no focal deficits noted Results Lab Results 02/03/25 03:58 02/03/25 03:58 Lab results: Most recent lab results ABG pH 7.376 (7.350-7.450) 01/30/25 18:43 ABG pCO2 37.3 mmHg (35.0-45.0) 01/30/25 18:43 ABG pO2 60.7 mmHg (80.0-100.0) L 01/30/25 18:43 ABG HCO3 21.4 mEq/l (22.0-26.0) L 01/30/25 18:43 ABG O2 Saturation 90.9 % (95.0-100.0) L 01/30/25 18:43 Calcium 8.5 mg/dL (8.4-10.2) 02/03/25 03:58 Phosphorus 2.5 mg/dL (2.5-4.5) 01/31/25 17:19 Magnesium 1.7 mg/dL (1.6-2.3) 02/03/25 03:58 01/30/25 01/30/25 01/31/25 02/01/25 02/02/25 02/02/25 02/03/25 18:35 23:41 09:03 04:03 04:08 13:20 03:58 Total Creatine Kinase 114 874 H 2057 H 1112 H 957 H 1227 H 1293 H
[2025-02-03 16:00] VITALS: BP 110/79; PULSE 85; RESP 16; TEMP 36.8; O2SAT 98
[2025-02-03] MEDS: ACETAMINOPHEN 325 MG TABLET 650 MG PO (18:39)
[2025-02-03 20:00] VITALS: PULSE 85; RESP 16; O2SAT 98
[2025-02-03] MEDS: PRAZOSIN HCL 5 MG CAPSULE PO (22:15)
[2025-02-04] VITALS: BP 128/68; PULSE 79; RESP 16; TEMP 36.8; O2SAT 98
[2025-02-04 04:08] LABS: Hematocrit 37.3 % (37.0-47.0); Hemoglobin 12.2 g/dL (12.0-15.0); Mean Corpuscular HGB Conc 32.7 g/dl (32-36); Mean Corpuscular Volume 116.2 fl (80-100); Mean Platelet Volume 9.7 fl (7.4-10.4); Platelet Count Result 252 k/mm3 (150-375); Red Blood Count 3.21 M/mm3 (4.2-5.4); Red Cell Distribution Width 14.9 % (11.5-14.5)
[2025-02-04 04:16] LABS: Creatine Kinase 597 U/L (30-135)
[2025-02-04 04:17] LABS: Alanine Aminotransferase 40 U/L (6-35); Albumin Level 3.2 g/dL (3.5-5.1); Alkaline Phosphatase 70 U/L (38-126); Anion Gap 3 mmol/L (4-12); Aspartate Amino Transferase 65 U/L (14-36); Bilirubin,Total 0.3 mg/dL (0.2-1.3); Blood Urea Nitrogen 6 mg/dL (7-17); Calcium 8.8 mg/dL (8.4-10.2); Carbon Dioxide 31 mmol/L (22-30); Chloride 105 mmol/L (98-107); Estimated CRCL calculation 125 ml/min; Estimated Glomerular Filt Rate > 60; Glucose 121 mg/dL (65-110); Magnesium 1.9 mg/dL (1.6-2.3); Potassium 3.8 mmol/L (3.4-5.0); Sodium 139 mmol/L (137-145)
[2025-02-04] MEDS: oxyCODONE HCL (*CRX) 2.5 MG TAB IR 7.5 MG PO ×2 (05:50→11:51)
[2025-02-04] MEDS: LACTATED RINGERS 1,000 ML 75 ML IV CONT (05:55)
[2025-02-04 08:24] VITALS: BP 134/76; PULSE 81; RESP 16; TEMP 36.6; O2SAT 94
[2025-02-04] MEDS: chlorproMAZINE HCL 25 MG TABLET 50 MG PO (08:26)
[2025-02-04] MEDS: busPIRone HCL 10 MG TABLET 30 MG PO (08:26)
[2025-02-04] MEDS: BENZTROPINE MESYLATE 1 MG TABLET PO (08:26)
[2025-02-04] MEDS: SERTRALINE HCL 50 MG TABLET 200 MG PO (08:26)
[2025-02-04] MEDS: NICOTINE (*PBKC) 21 MG PATCH 1 PATCH TRANSDERM (08:27)
[2025-02-04] MEDS: PANTOPRAZOLE SODIUM IV 40 MG VIAL IV PUSH (08:27)
[2025-02-04] MEDS: GABAPENTIN 300 MG CAPSULE 600 MG PO (08:31)
--- NOTE | 2025-02-04 09:18 | P.PNIM_ITS ---
Progress Note: A&P Assessment and Plan (1) Overdose on Tylenol: Qualifiers: Encounter type: initial encounter Injury intent: undetermined intent Qualified Code(s): T39.1X4A - Poisoning by 4-Aminophenol derivatives, undetermined, initial encounter Code(s): T39.1X1A - Poisoning by 4-Aminophenol derivatives, accidental (unintentional), initial encounter Status: Acute Assessment and Plan: She has completed her N-acetylcysteine infusion protocol LFTs have improved and acetaminophen level has clear Poison control signed off -appreciate psychiatry evaluation recommendation -patient is agreed to inpatient psychiatry unit -patient is medically stable, will have care coordination and crisis management evaluate the patient for placement (2) Elevated CPK: Code(s): R74.8 - Abnormal levels of other serum enzymes Status: Acute Assessment and Plan: -CK levels continue to improve. Continue to Monitor -will give additional IV fluid bolus -appreciate Nephrology evaluation and recommendations -CK levels have come down significantly, (3) Agitation: Code(s): R45.1 - Restlessness and agitation Status: Inactive Assessment and Plan: Patient has a baseline history of schizophrenia and now comes with acute agitation which is likely multifactorial and combination of polypharmacy with side effects, drug overdose, baseline psychiatric illness and possibly UTI Off Precedex infusion> 24 hours -patient has been restarted on her home Cogentin, BuSpar, chlorpromazine, central Clinically she has improved significantly and is now, appropriate and oriented Patient does have one-to-one sitter (4) Schizophrenia: Code(s): F20.9 - Schizophrenia, unspecified Status: Chronic Assessment and Plan: Restarted home medications (5) GERD (gastroesophageal reflux disease): Qualifiers: Esophagitis presence: esophagitis presence not specified Qualified Code(s): K21.9 - Gastro-esophageal reflux disease without esophagitis Code(s): K21.9 - Gastro-esophageal reflux disease without esophagitis Status: Acute Assessment and Plan: Continue PPI (6) Urinary tract infection: Code(s): N39.0 - Urinary tract infection, site not specified Status: Acute Assessment and Plan: 01/30/2025: Urine culture shows greater than 100,000 CFU per mL of non uro pathogenic Gram-positive organism. DC Ertapenem 02/02 (7) Acute urinary retention: Code(s): R33.8 - Other retention of urine Status: Acute Assessment and Plan: Status post Rich catheter placement (8) Acute hypokalemia: Code(s): E87.6 - Hypokalemia Status: Acute Assessment and Plan: Potassium improved after replacement Plan DVT prophylaxis -Lovenox Stress ulcer prophylaxis -PPI Nutrition -advance to regular diet. Code Status - Full Code Due to a high probability of clinically significant, life threatening deterioration, the patient required my highest level of preparedness to intervene emergently and I personally spent this critical care time directly and personally managing the patient. This critical care time included obtaining a history; examining the patient; pulse oximetry; ordering and review of studies; arranging urgent treatment with development of a management plan; evaluation of patient's response to treatment; frequent reassessment; and discussions with other providers. It was exclusive of separately billable procedures and treating other patients and teaching time. Please see Assessment and Plan section and the rest of the note for further information on patient assessment and treatment Subjective Date/time seen: 02/04/25 09:18 Interval history: Patient seen and examined in the ICU as an IMU or flow for the hospitalist team -awake, alert, oriented, denies any complaints, states he feels much better. She did eat her breakfast. Has been off Precedex since yesterday. Hemodynamically stable, adequate urine output. No issues overnight CK levels trending down significantly this morning Review of Systems Review of Systems: All systems reviewed & are unremarkable except as noted in HPI and below (HPI) Exam Narrative: General: Pt is alert awake and in NAD Lungs/Chest: Trachea central Clear BS B/L, No crackles or wheezing. Cardiac: RRR. Normal S1 S2. No murmurs Circulation: Pedal pulses are intact and symmetrical. Abdomen: Normal bowel sounds. Diabetes. Soft. NT. ND. Extremities: No clubbing, cyanosis or edema. Warm : Rich in place Neurologic: Patient is awake, calm and oriented x 3, she moves all 4 extremity and follow commands. PERRL. No facial asymmetry noticed. Speech is normal. Skin: No Rash Objective Data Vital Signs Vital Signs: Vital Signs - 24 hr 02/03/25 16:00 02/03/25 20:00 02/04/25 00:00 Temperature 98.3 F 98.2 F Pulse Rate 85 85 79 Respiratory Rate 16 16 16 Blood Pressure 110/79 128/68 Pulse Oximetry 98 98 98 Oxygen Delivery Room Air 02/04/25 08:00 02/04/25 08:24 Temperature 97.8 F Pulse Rate 81 Respiratory Rate 16 Blood Pressure 134/76 Pulse Oximetry 94 Oxygen Delivery Room Air Intake/Output Intake/Output: Intake & Output 02/01/25 02/02/25 02/03/25 02/04/25 23:59 23:59 23:59 23:59 Intake Total 4482.5 2992.5 4122.5 1492.5 Output Total 4050 2700 Balance 432.5 292.5 4122.5 1492.5 Meds/Results Medications: Active Medications Generic Name Dose Route Start Last Admin Trade Name Freq PRN Reason Stop Dose Admin Acetaminophen 650 mg 02/01/25 19:57 02/03/25 18:39 Acetaminophen 325 Mg Tablet PO 650 mg Q4H PRN Administration Mild Pain (1-3) or Fever Benztropine Mesylate 1 mg 02/03/25 21:00 02/04/25 08:26 Benztropine Mesylate 1 Mg Tablet PO 1 mg Q12HR BENEDICTO Administration Buspirone HCl 30 mg 02/01/25 17:00 02/04/25 08:26 Buspirone Hcl 10 Mg Tablet PO 30 mg BID BENEDICTO Administration Chlorpromazine HCl 50 mg 02/03/25 21:00 02/04/25 08:26 Chlorpromazine Hcl 25 Mg Tablet PO 50 mg Q12HR BENEDICTO Administration Enoxaparin Sodium 40 mg 01/31/25 09:00 02/04/25 08:32 Enoxaparin 40 Mg/0.4 Ml Syringe SUB-Q Not Given DAILY BENEDICTO Gabapentin 600 mg 02/03/25 21:00 02/04/25 08:31 Gabapentin 300 Mg Capsule PO 600 mg TID@0900,1400,2100 BENEDICTO Administration Lactated Ringer's 1,000 mls @ 75 mls/hr 02/01/25 07:40 02/04/25 05:55 Lr - Lactated Ringers Iv IV CONT 75 mls/hr .[id number] BENEDICTO Administration Loperamide HCl 2 mg 02/02/25 13:00 02/02/25 19:59 Loperamide Hcl 2 Mg Capsule PO 2 mg PRN PRN Administration Diarrhea Nicotine 1 patch 02/02/25 22:45 02/04/25 08:27 Nicotine (*Pbkc) 21 Mg Patch TRANSDERM 1 patch DAILY BENEDICTO Administration Ondansetron HCl 4 mg 01/31/25 04:01 02/03/25 11:09 Ondansetron Inj 4 Mg/2 Ml Vial IV PUSH 4 mg Q4H PRN Administration Nausea Oxycodone HCl 7.5 mg 02/03/25 09:59 02/04/25 05:50 Oxycodone Hcl (*Crx) 2.5 Mg Tab Ir PO 7.5 mg Q6H PRN Administration Pain Rated 7-10 Pantoprazole Sodium 40 mg 01/31/25 09:00 02/04/25 08:27 Pantoprazole Sodium Iv 40 Mg Vial IV PUSH 40 mg QAM BENEDICTO Administration Prazosin HCl 5 mg 02/01/25 21:00 02/03/25 22:15 Prazosin Hcl 5 Mg Capsule PO 5 mg HS BENEDICTO Administration Sertraline HCl 200 mg 02/02/25 09:00 02/04/25 08:26 Sertraline Hcl 50 Mg Tablet PO 200 mg DAILY BENEDICTO Administration Sodium Chloride 1 spray 02/03/25 09:58 02/03/25 11:13 Saline 0.65% Khai Soln 44 Ml Btl NASAL 1 spray Q6HR PRN Administration Congestion Radiology Results: ITS Impressions Head CT 01/31/25 06:52 Impression: No large acute intracranial hemorrhage or suspicious significant mass effect. Chest X-Ray 01/31/25 07:18 IMPRESSION: Left-sided pleural effusion without focal infiltrate. Chest/Abdomen/Pelvis CT 01/31/25 07:30 IMPRESSION: No hollow or solid visceral organ injury. Moderate gallbladder distention with prominence of the common bile duct for wh ich follow-up ultrasound is suggested. Bilateral hydroureteronephrosis without an obstructing stone visualized. Moderate bladder distention. Cervical Spine CT 01/31/25 07:45 Impression: Straightening and slight reversal of the normal curvature of the cervical spine, likely muscular in origin. Degenerative disease, without acute fracture. Labs Labs: Laboratory Results - last 24 hr 02/04/25 04:04 WBC 5.0 RBC 3.21 L Hgb 12.2 Hct 37.3 MCV 116.2 H MCH 38.0 H MCHC 32.7 RDW 14.9 H Plt Count 252 MPV 9.7 Sodium 139 Potassium 3.8 Chloride 105 Carbon Dioxide 31 H Anion Gap 3 L BUN 6 L Creatinine 0.39 L Estim Creat Clear Calc 125 Estimated GFR > 60 Glucose 121 H Calcium 8.8 Magnesium 1.9 Total Bilirubin 0.3 AST 65 H ALT 40 H Alkaline Phosphatase 70 Total Creatine Kinase 597 H Total Protein 6.0 L Albumin 3.2 L Quality VTE Prophylaxis VTE prophylaxis: pharmacologic ordered
--- NOTE | 2025-02-04 11:52 | PM.DS ---
DS: Admitting Diagnosis Discharge Date 02/04/2025 Admitting Diagnosis Polysubstance overdose and agitation DS: Discharge Diagnosis Discharge Diagnosis (1) Overdose on Tylenol: Qualifiers: Encounter type: initial encounter Injury intent: undetermined intent Qualified Code(s): T39.1X4A - Poisoning by 4-Aminophenol derivatives, undetermined, initial encounter Code(s): T39.1X1A - Poisoning by 4-Aminophenol derivatives, accidental (unintentional), initial encounter Status: Acute Assessment and Plan: She has completed her N-acetylcysteine infusion protocol LFTs have improved and acetaminophen level has clear Poison control signed off -appreciate psychiatry evaluation recommendation -patient is agreed to inpatient psychiatry unit -patient is medically stable, will have care coordination and crisis management evaluate the patient for placement (2) Elevated CPK: Code(s): R74.8 - Abnormal levels of other serum enzymes Status: Acute Assessment and Plan: -CK levels continue to improve. Continue to Monitor -will give additional IV fluid bolus -appreciate Nephrology evaluation and recommendations -CK levels have come down significantly, (3) Agitation: Code(s): R45.1 - Restlessness and agitation Status: Inactive Assessment and Plan: Patient has a baseline history of schizophrenia and now comes with acute agitation which is likely multifactorial and combination of polypharmacy with side effects, drug overdose, baseline psychiatric illness and possibly UTI Off Precedex infusion> 24 hours -patient has been restarted on her home Cogentin, BuSpar, chlorpromazine, central Clinically she has improved significantly and is now, appropriate and oriented Patient does have one-to-one sitter (4) Schizophrenia: Code(s): F20.9 - Schizophrenia, unspecified Status: Chronic Assessment and Plan: Restarted home medications (5) GERD (gastroesophageal reflux disease): Qualifiers: Esophagitis presence: esophagitis presence not specified Qualified Code(s): K21.9 - Gastro-esophageal reflux disease without esophagitis Code(s): K21.9 - Gastro-esophageal reflux disease without esophagitis Status: Acute Assessment and Plan: Continue PPI (6) Urinary tract infection: Code(s): N39.0 - Urinary tract infection, site not specified Status: Acute Assessment and Plan: 01/30/2025: Urine culture shows greater than 100,000 CFU per mL of non uro pathogenic Gram-positive organism. DC Ertapenem 02/02 (7) Acute urinary retention: Code(s): R33.8 - Other retention of urine Status: Acute Assessment and Plan: Status post Rich catheter placement (8) Acute hypokalemia: Code(s): E87.6 - Hypokalemia Status: Acute Assessment and Plan: Potassium improved after replacement Plan DVT prophylaxis -Lovenox Stress ulcer prophylaxis -PPI Nutrition -advance to regular diet. Code Status - Full Code Due to a high probability of clinically significant, life threatening deterioration, the patient required my highest level of preparedness to intervene emergently and I personally spent this critical care time directly and personally managing the patient. This critical care time included obtaining a history; examining the patient; pulse oximetry; ordering and review of studies; arranging urgent treatment with development of a management plan; evaluation of patient's response to treatment; frequent reassessment; and discussions with other providers. It was exclusive of separately billable procedures and treating other patients and teaching time. Please see Assessment and Plan section and the rest of the note for further information on patient assessment and treatment DS: Summary Hospital Course Reason for hospitalization: Polysubstance overdose, agitation Hospital Course: Mahnaz Oseguera is a 59 year old female well known to me from past admission has past medical history of chronic tobacco abuse, COPD, urothelial cancer, bipolar disorder, schizophrenia, chronic opiate dependence with history of abuse, and multiple prior suicide attempt on both home Bedford and Fioricet who presented to the ER from home via EMS due to being found unresponsive. According to EMS report patient's mother heard the patient yelling out for her. When her mother arrived to the room she found the patient laying on the floor sliding in out from under her bed. The patient had just had her prescription for Bedford #80 tablets filled on the and Fioricet #50 filled on the and both bottles were empty. Patient's mother reports that the patient did not take the medications in attempt to harm herself although patient does have history of suicide attempts in the past by overdosing on medications.. Mother told the staff that patient is ?looking for that freaking high.? Patient was unable to provide any history. In the ER, patient was intermittently calling out for her mother and then became agitated. She was given several doses of benzodiazepine, Benadryl, Haldol, Zyprexa, down. Patient had to be physically restrained. Patient was then started on Precedex infusion to be able to draw labs and do imaging. Imaging results as mentioned below. Patient was found to be having urinary retention and a Rich catheter was placed. The more than 1 L of urine came out. Patient also had a UA suggestive of UTI. Her Tylenol level was elevated and poison control was notified. She had mildly elevated LFTs and was started on N-acetylcysteine infusion. Patient was admitted to ICU for further evaluation management. All other psychiatric medications were held. She had to be physically restrained for her and staffs safety Pt awake, confused and agitated. She states she hurts everywhere but doesnt answer any other question or provide details. She states she is hungry.The entirety of HPI was obtained from review of past medical records, physician/nursing report. Patient was unable to provide any history. Needed the code of the hospital stay, patient received N-acetylcysteine, LFTs improved. CK levels were elevated which are trending down significantly. Patient with normal renal function and adequate urine output -poison Control signed off the patient -urine cultures were negative, ertapenem was discontinued 02/04/25: On the day of discharge, patient is awake, alert, calm and appropriate. Good urine output, hemodynamically stable, good p.o. intake. Stable for discharge Status at Discharge Cognitive/behavioral status at discharge: Calm and appropriate Time Spent with Patient Time attestation: Total time spent providing and/or coordinating discharge services: Exam Narrative: General: Pt is alert awake and in NAD, patient is calm, appropriate, not agitated Lungs/Chest: Trachea central Clear BS B/L, No crackles or wheezing. Cardiac: RRR. Normal S1 S2. No murmurs Circulation: Pedal pulses are intact and symmetrical. Abdomen: Normal bowel sounds. Diabetes. Soft. NT. ND. Extremities: No clubbing, cyanosis or edema. Warm : Rich in place Neurologic: Patient is awake, calm and oriented x 3, she moves all 4 extremity and follow commands. PERRL. No facial asymmetry noticed. Speech is normal. Skin: No Rash DS: Data Data Completed and Pending Labs on day of discharge: Labs from last 24 hours 02/04/25 04:04 WBC 5.0 RBC 3.21 L Hgb 12.2 Hct 37.3 MCV 116.2 H MCH 38.0 H MCHC 32.7 RDW 14.9 H Plt Count 252 MPV 9.7 Sodium 139 Potassium 3.8 Chloride 105 Carbon Dioxide 31 H Anion Gap 3 L BUN 6 L Creatinine 0.39 L Estim Creat Clear Calc 125 Estimated GFR > 60 Glucose 121 H Calcium 8.8 Magnesium 1.9 Total Bilirubin 0.3 AST 65 H ALT 40 H Alkaline Phosphatase 70 Total Creatine Kinase 597 H Total Protein 6.0 L Albumin 3.2 L Discharge Plan Discharge Attending physician on discharge: Khadra Babcock Consulting providers: Edgardo Marroquin; Brian Sanchez Discharging Clinician: Khadra Babcock Anticipated Discharge Date/Time: 02/04/25 11:56 Patient Disposition: Home Activity: may shower and as tolerated Diet: regular Discharge Instructions: Take medications regularly Patient Instructions: Antibiotic Form, Stress (GEN), Depression (DC), Acetaminophen Overdose (DC), Polysubstance Use Disorder (GEN), Prescription Opioid Overdose (GEN), Suicide Prevention (DC) Patient Language: Bulgarian Stand Alone Forms: General Discharge Information Follow-up/Referrals: Edgardo Marroquin MD [Physician] - Km,Neil Fang MD [Primary Care Provider] - Discharge Medications: Continued chlorpromazine 100 mg tablet 100 mg PO BID [id number] 50-325-40 mg Tablet 1 tablet PO Q8H PRN (Reason: Headache) benztropine 1 mg tablet 1 mg PO BID buspirone 30 mg tablet 30 mg PO BID ondansetron 4 mg tablet,disintegrating 4 mg translingual TID PRN (Reason: nausea and vomiting) sertraline 100 mg tablet 200 mg PO DAILY prazosin 5 mg capsule 10 mg PO HS benztropine 2 mg tablet 2 mg PO BID PRN (Reason: involuntary movement) gabapentin 300 mg capsule 600 mg PO TID Discontinued cyclobenzaprine 10 mg tablet 10 mg PO BID chlorpromazine 25 mg tablet 25 mg PO DAILY hydrocodone-acetaminophen 5-325 mg tablet 1 tablet PO TID PRN (Reason: pain) No Action potassium chloride 20 mEq tablet extended release 20 meq PO DAILY Date of admission: 02/01/25 09:49 Primary Care Provider: KmNeil Admitting Provider: Asia Go Attending physician on admission: Asia Go Condition: Stable Quality VTE Prophylaxis VTE prophylaxis: pharmacologic ordered
== END 2025-02-04 12:30 | disposition home or self-care (01) | DRG 918 ==
LOC: ANHED 21:07 → ANHICU 01-31 04:22
PROVIDERS: Emergency Medicine; Internal Medicine; Admitting Provider Internal Medicine; Emergency Provider Student in an Organized Health Care Education/Training Program; PCP Internal Medicine Gastroenterology; Visit Provider Internal Medicine
DX: T39.1X4A Poisoning by 4-Aminophenol derivatives, undetermined, initial encounter (principal); F11.20 Opioid dependence, uncomplicated; N13.30 Unspecified hydronephrosis; M62.82 Rhabdomyolysis; N39.0 Urinary tract infection, site not specified; D53.1 Other megaloblastic anemias, not elsewhere classified; E87.6 Hypokalemia; F17.210 Nicotine dependence, cigarettes, uncomplicated; F20.9 Schizophrenia, unspecified; F31.9 Bipolar disorder, unspecified; J44.9 Chronic obstructive pulmonary disease, unspecified; K21.9 Gastro-esophageal reflux disease without esophagitis; R33.8 Other retention of urine; R45.1 Restlessness and agitation; Z85.51 Personal history of malignant neoplasm of bladder; Z91.51 Personal history of suicidal behavior
CPT/HCPCS: 36415; 36600; 70450; 71045; 71260; 72125; 74177; 80048; 80053; 80143; 80179; 80307; 81001; 82077; 82140; 82247; 82550; 82805; 83605; 83735; 84075; 84100; 84443; 84450; 84460; 84484; 85018; 85025; 85027; 85610; 85730; 87086; 87641; 93005; 96365; 96366; 96367; 96372; 96375; 96376; 99285; A9270; G0378; J0132; J1171; J1200; J1335; J1630; J1650; J2060; J2359; J2405; J2470; J3360; J3480; J7030; J7040; J7050; J7060; J7070; J7120; L0140; Q9967

== ENCOUNTER 2025-05-15 14:53 | Inpatient (IN) | payer MEDICARE, MEDICAID, SELFPAY ==
--- OUTSIDE RECORDS SUMMARY | 2025-02-03 08:00 | XMS_ITS ---
Author Organization [facility] Address [address] [place] [address] Care Team Providers Care Floor Refinisher Name Role Phone Jenny Hernandez Primary Care Provider Juanis Watson Unavailable [phone] REASON FOR VISIT r/s from 01/27 4 week fu Encounters Encounter Location Date Provider Diagnosis [facility] [address] [place] [id number] 02/03/2025 Juanis Watson Plan Of Treatment Next Appt Details Provider Name:Jenny hernandez, 05/27/2025 02:40:00 PM, [address] [place], [address], Progress Notes * Rhona ANGUIANOB: 6 (59 yo F)Acc No.[id number]:02/03/2025 UNLOCKED PROGRESS NOTE Patient: Mahnaz OWENS Provider: JACQUE Ruano :1965 A ge:59 Y S ex:Female Date:02/03/2025 Address:[address] [place], [place] [id number] Pcp:Jenny Hernandez Subjective: * Chief Complaints: * 1 . R/s from 01/27 4 week fu. * Medical History: Objective: * Vitals: Assessment: Plan: * Treatment: * * Electronic signature of Regina Watson on 05/15/2025 at 03:02 PM CDT Sign off status: Pending * [facility] 0 02/03/2025 Generated for Vanessa Webb/Alejandra on: 0 05/15/2025 03:02 PM CDT
[2025-05-15] VITALS (7 sets, daily range): BP systolic 112–130; BP diastolic 76–87; PULSE 83–108; RESP 12–21; TEMP 36.4–38.2; O2SAT 94–98; BMI 26.6
--- NOTE | ~2025-05-15 | CT_ITS ---
EXAMINATION: CT brain wo con DATE: 05/15/2025 16:32 INDICATION: Altered mental status TECHNIQUE: Computed tomography (CT) of the head was performed without intravenous contrast. Sagittal and coronal reconstructions were performed. The mA was adjusted according to patient size. Iterative reconstruction technique was employed. The dose-length product was 674.39 mGy-cm. COMPARISON: head CT dated 01/30/2025 and 05/24/2023 FINDINGS: No acute intracranial hemorrhage, acute infarction or abnormal extra axial fluid collection. Ventricles are normal and symmetric. No mass/mass effect. The orbits, paranasal sinuses and mastoid air cells are normal. 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 IMPRESSION: 1. Normal brain. No acute intracranial process. Reviewed, dictated and finalized at location A.
--- NOTE | ~2025-05-15 | XR_ITS ---
EXAMINATION: XR chest 1V DATE: 05/15/2025 16:39 INDICATION: Cough TECHNIQUE: frontal view of the chest was obtained. COMPARISON: Chest radiograph and CT dated 01/31/2025 FINDINGS: The lungs are clear with no focal airspace opacities, pulmonary edema, pleural effusion or pneumothorax. The cardiomediastinal silhouette is normal. IMPRESSION: 1. No acute cardiopulmonary disease. Reviewed, dictated and finalized at location A.
--- OUTSIDE RECORDS SUMMARY | 2025-05-15 15:03 | XMS_ITS | Patient Health Record ---
Author Organization [facility] Address [address] [place] [address] Care Team Providers Care Seasonal Clerk Name Role Phone David Jenny Primary Care Provider Shelly Gil Unavailable [phone] Chanda Reynolds Unavailable [phone] Juanis Watson Unavailable [phone] Bea Jenkins Unavailable [phone] Allergies Allergen (clinical drug ingredient) Drug/Non Drug [...] Duration) Notes Start Date End Date Status Benztropine Mesylate 1 MG 1 tablet Orally twice a day; Duration: 30 days blister packs Active traZODone HCl 50 MG 1 tablet at bedtime as needed Orally Once a day; Duration: 30 days blister packs 04/29/2025 Active Potassium Active Sertraline HCl 200 MG 1 tablet Orally Once a day; Duration: 30 days Blister packs Active Tamsulosin HCl Not-T aking Prazosin HCl 5 MG 2 capsules at bedtime Orally Once a day; Duration: 30 days Blister packs Active HYDROcodone-Acetaminoph en 5-325 MG 1 tablet as needed Orally every 6 hrs Active oxyBUTYnin Not-Takin g busPIRone HCl 30 MG 2 tablets Orally 3 times a day; Duration: 30 days take 2 tablets three times a day for a TOTAL OF 60 MG DAILY Blister packs Active chlorproMAZINE HCl 100 MG 1 tablet Orally Twice a day; Duration: 30 days Blister packs Active Qjkppklzfa-Ddilgiu-Vfou eine 50-325-40 MG 1 capsule as needed Orally every 4 hrs Active Ondansetron 4 MG 1 tablet on the tongue and allow to dissolve Orally Once a day Active Cyclobenzaprine HCl 10 MG 1 tablet Orally twice a day Not-Taking Gabapentin 600 MG 1 tablet Orally at bedtime Active chlorproMAZINE HCl 25 MG 1 tablet Orally in the morning; Duration: 30 days Blister packs 10/20/2024 Not-Taking Docusate Sodium Not- Taking Social History Tobacco Use: Social History Observation Description Date Details (start date - stop date) Current Smoker NA - NA Tobacco Control (Standard) Question Answer Notes Tobacco use: Current every day smoker Problems Problem Type SNOMED Code ICD Code Onset Dates Problem Status W/U Status Risk Notes Problem Mood disorder (28005275) Mood disorder (F39) Active confirmed Consideration to Borderline Personality Disorder vs Schizoaffective d/o depressed type Problem Overweight (917137370) Over weight (E66.3) Active confirmed Problem Insomnia due to mental disorder (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) 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 Problem Nightmares (166221168) Nightmares (F51.5) 024 Active confirmed Problem Anxiety state (703724241) Anxiety disorder, unspecified type (F41.9) 025 Active confirmed Problem Tobacco use (428890022) Tobacco use disorder (F17.200) 024 Active confirmed Vital Signs Heart Rate 64 /min 04/29/2025 Respiratory Rate 16 /min 04/29/2025 Blood pressure diastolic 74 mm Hg 04/29/2025 Oximetry 98 % 04/29/2025 Height 63 in 04/29/2025 Blood pressure systolic 122 mm Hg 04/29/2025 Weight 166.2 lbs 04/29/2025 BMI 29.44 kg/m2 04/29/2025 Encounters Encounter Location Date Provider Diagnosis [facility] [address] [address] 06/10/2024 Kyria Watson Mood disorder F39 ; Tobacco use disorder F17.200 and Nightmares F51.5 [facility] [address] [address] 07/23/2024 Kyria Watson Mood disorder F39 ; Tobacco use disorder F17.200 ; Nightmares F51.5 and Insomnia due to mental disorder F51.05 [facility] [address] [place] [address] 09/03/2024 Kyria Watson Mood disorder F39 ; Tobacco use disorder F17.200 ; Nightmares F51.5 and Insomnia due to mental disorder F51.05 [facility] [address] [place] [address] 10/20/2024 Kyria Watson Mood disorder F39 ; Tobacco use disorder F17.200 ; Nightmares F51.5 ; Insomnia due to mental disorder F51.05 and Anxiety disorder, unspecified type F41.9 [facility] [address] [place] [address] 12/08/2024 Kydoca Watson Mood disorder F39 ; Tobacco use disorder F17.200 ; Nightmares F51.5 ; Insomnia due to mental disorder F51.05 and Anxiety disorder, unspecified type F41.[address] [address] 12/09/2024 Bea Jenkins Mood disorder F39 [facility] [address] [address] 02/10/2025 Kyria Watson Mood disorder F39 ; Tobacco use disorder F17.200 ; Nightmares F51.5 ; Insomnia due to mental disorder F51.05 and Anxiety disorder, unspecified type F41.9 [facility] [address] [place] [address] 03/25/2025 Jenny David Mood disorder F39 ; Tobacco use disorder F17.200 ; Nightmares F51.5 ; Insomnia due to mental disorder F51.05 and Anxiety disorder, unspecified type F41.9 [facility] [address] [place] [address] 04/29/2025 Jenny David Over weight E66.3 ; Mood disorder F39 ; Tobacco use disorder F17.200 ; Nightmares F51.5 ; Insomnia due to mental disorder F51.05 ; Anxiety disorder, unspecified type F41.9 and Therapeutic drug monitoring Z51.[address] [address] 06/11/2024 Juanis Watson [address] [address] 08/25/2024 Chanda Reynolds Mood disorder F39 [address] [address] 11/11/2024 Juanis Watson [address] [address] 12/09/2024 Juanis Watson [address] [address] 01/15/2025 Maximinoria Walter [address] [address] 01/20/2025 Kyria Watson Mood disorder F39 and Nightmares F51.[address] [place] [address] 01/26/2025 Kyria Walter Mood disorder F39 and Nightmares F51.5 [facility] [address] [place] [address] 04/05/2025 Shelly Gil [facility] [address] [place] [address] 04/22/2025 Jenny David Mood disorder F39 and Nightmares F51.5 Assessments [...] F39) 01/26/2025 Mood disorder (ICD-10 - F39) 02/10/2025 Mood disorder (ICD-10 - F39) Consideration to Borderline Personality Disorder vs Schizoaffective d/o depressed type 03/25/2025 Mood disorder (ICD-10 - F39) Consideration to Borderline Personality Disorder vs Schizoaffective d/o depressed type 04/22/2025 Mood disorder (ICD-10 - F39) Consideration to Borderline Personality Disorder vs Schizoaffective d/o depressed type 04/29/2025 Over weight (ICD-10 - E66.3) 04/22/2025 Nightmares (ICD-10 - F51.5) 04/29/2025 Mood disorder (ICD-10 - F39) Consideration to Borderline Personality Disorder vs Schizoaffective d/o depressed type 03/25/2025 Tobacco use disorder (ICD-10 - F17.200) 01/26/2025 Nightmares (ICD-10 - F51.5) 12/08/2024 Tobacco use disorder (ICD-10 - F17.200) 02/10/2025 Tobacco use disorder (ICD-10 - F17.200) 01/20/2025 Nightmares (ICD-10 - F51.5) 10/20/2024 Nightmares (ICD-10 - F51.5) 09/03/2024 Tobacco use disorder (ICD-10 - F17.200) 06/10/2024 Tobacco use disorder (ICD-10 - F17.200) 07/23/2024 Nightmares (ICD-10 - F51.5) 06/10/2024 Nightmares (ICD-10 - F51.5) Today's visit: Patient is a 58-year-old female who presents for a psychiatric follow-up over phone and is located in [place]. Previously seen on 05/13/2024 for an evaluation [...] or be administered own oral medications per [facility] protocols. Provided informed consent with understanding of [...] follow-up over phone and is located in [place]. Previously seen on 06/10/2024 and during this [...] or be administered own oral medications per [facility] protocols. Provided informed consent with understanding of [...] follow-up over phone and is located in [place]. Previously seen on 09/03/2024 and during this [...] or be administered own oral medications per [facility] protocols. Provided informed consent with understanding of side effects, adverse effects, risks and benefits as well as alternative treatments as previously discussed and with the above recommended medications & other aspects of the treatment program. Agrees to return sooner if symptoms worsen or suicidal or homicidal ideations occur. 12/08/2024 Nightmares (ICD-10 - F51.5) 02/10/2025 Nightmares (ICD-10 - F51.5) 04/29/2025 Tobacco use disorder (ICD-10 - F17.200) 03/25/2025 Nightmares (ICD-10 - F51.5) 03/25/2025 Insomnia due to mental disorder (ICD-10 - F51.05) 04/29/2025 Nightmares (ICD-10 - F51.5) 02/10/2025 Insomnia due to mental disorder (ICD-10 - F51.05) Today's visit: Patient is a 59-year-old female who presents for a psychiatric follow-up in office and is located in [place]. Previously seen on 12/08/24 and during this appt was started on Cogentin 0.5. mg as needed, discontinued on hydroxyzine, increased on sertraline to 200 mg and continued on Buspar, Prazosin and Thorazine as prescribed. Reports improvement in mood/anxiety on increased dose of sertraline, Cogentin helpful for restlessness that appears to be s/e form Thorazine - wishes to continue taking all medications as prescribed. Continues to report s/e of congestion from Thorazine. Discussed Tylenol PM has likely benadryl in it and should not be taken with Cogentin; she voices understandingf. Recent hospitalization d/t low potassium and UTI - pt encouraged to take daily potassium as prescribed and to incorporate adequate water/fluid intake. Completed AIMS, unremarkable - wears dentures. AT the time of this appt no signs of Tardive Dyskinesia. Encourage pt to consider therapy she continues to decline. No acute safety concerns the time of this appt, she is agreeable to treatment plan and was provided an opportunity to ask questions. May self-administer medications or be administered own oral medications per [facility] protocols. Provided informed consent with understanding of [...] follow-up over phone and is located in [place]. Previously seen on 10/20/2024 and during this [...] therapy; she declines at this time. Contacted [facility] behavioral health to reach out to patient for safety planning. No acute safety concerns the time of this appt, she is agreeable to treatment plan and was provided an opportunity to ask questions. May self-administer medications or be administered own oral medications per [facility] protocols. Provided informed consent with understanding of [...] follow-up over phone and is located in [place]. Previously seen on 07/23/2024 and during this [...] form increase in Zoloft, will increase again [id number] daily to target depression and anxiety. Will [...] or be administered own oral medications per [facility] protocols. Provided informed consent with understanding of side effects, adverse effects, risks and benefits as well as alternative treatments as previously discussed and with the above recommended medications & other aspects of the treatment program. Agrees to return sooner if symptoms worsen or suicidal or homicidal ideations occur. 12/08/2024 Anxiety disorder, unspecified type (ICD-10 - F41.9) 02/10/2025 Anxiety disorder, unspecified type (ICD-10 - F41.9) 03/25/2025 Anxiety disorder, unspecified type (ICD-10 - F41.9) 04/29/2025 Insomnia due to mental disorder (ICD-10 - F51.05) Begin trazodone. Reviewed purpose (help with sleep), benefits, and risks - including increased thoughts or suicidality, inducing sanjuanita, and/or male priapism. Call for problems with medication, side effects or need for dosage change. 04/29/2025 Anxiety disorder, unspecified type (ICD-10 - F41.9) 04/29/2025 Therapeutic drug monitoring (ICD-10 - Z51.81) 03/25/2025 Other May self-administer medications or be administered own oral medications per [facility] protocols. Provided informed consent with understanding of side effects, adverse effects, risks and benefits as well as alternative treatments as previously discussed and with the above recommended medications & other aspects of the treatment program. Agrees to return sooner if symptoms worsen or suicidal or homicidal ideations occur. Medication Hx: -Benztropine was discontinued at the [facility] -Hydroxyzine Pamoate (helpful for the first couple weeks, made my anxiety worse) -Risperdal (allergy) -Haldol (allergy) -Zoloft (felt like crap) -Buhler (shaking) -Fluoxetine -Desipramine Plan: -Switch Buspirone to 10 mg 2 tablets by mouth TID (TDD 60 mg) -Continue Chlorpromazine 100 mg BID -Continue Sertraline 200 mg once daily -Continue Prazosin 5 mg 2 capsules QHS TOTAL 10 MG -Increase Benztropine to 1 mg *labs reviewed from [facility] Treatment Plan: -Next visit increase Benztropine to 1 mg BID and Prazosin to 11 mg QHS -Follow up: 4 weeks [] Hard Rx handed to patient [] Rx phoned into pharmacy [x] Rx faxed/e-prescribed into pharmacy [x] PDMP Reviewed [] [facility] Reviewed Encouraged by Jenny YOHNP-BC to: [x] consider utilizing therapist/counselor /certified social workers in health care/psychologist , referral given [] continue with therapist/counselor /certified social workers in health care/psychologist Psychoeducation: -Treatment options discussed in detail with patient/guardian verbalizing understanding of treatment rationales. -Side effects and benefits of all medications prescribed discussed at length between psychiatric prescribing provider and patient/guardian along with the risks associated of juak-ww-npad interactions, including but not limited to prescription medications, OTC medications, vitamins, minerals and herbal supplements. -Patient/Guardian and provider dialogue showcased verbalized understanding from patient on rationales of medication risk vs benefits. -Information with neurobiology of presenting neurotransmitter disorder, mood stability, sleep hygiene and 7-8 hours of uninterrupted sleep per night with wakeful and refreshed awakening and day long alertness discussed. -Reduction of stress and anxiety to aid in focus and concentration discussed, again, with patient/guardian physically nodding, voicing understanding, and engaged in treatment plan with Jenny YOHNP-BC. -Perceiving complete understanding of rationale by patient/guardian and willingness to adhere to formulated plan of care by prescriber with patient/guardian buy-in, willingness to participate actively in plan of care and willing to take charge of own care. -Although geared for female patients, all patients/guardians are informed by prescribing provider of risks of medications that could potentially be taken by female/women within their zuni of influence and that women who use medicine during have a higher chance of having a baby with defects. -Patient/Guardian denies being and/or knowing of women who are at present and denies wanting to become in the foreseeable future, 0-6 months from now. -Patient/Guardian again informed of the risk of pharmaceutical medications consumed during and how there are potential negative effects on the developing fetus. -Patient/Guardian verbalizes understanding of rationale and physically nods head in agreement that if a should occur, to consult with provider, ELEMENTARY EDUCATION TUTOR and/or Nurse Aquatic Scientist to determine if prescribed medications should or should not be continued. -Instructions regarding both the medical/pharmacolog ical and non-pharmacologic aspects of the treatments employed were given, and the patient/guardian seemed to understand this. Risks and benefits of treatment, and of non-treatment, were also discussed. The patient/guardian understands the more frequent side effects associated with the medications. -The use of psychotherapy was addressed today and will continue on an as needed basis for the foreseeable future. The choice is, of course, ultimately left to the patient/guardian. -Patient/Guardian was encouraged to make a follow-up appointment for the next visit. -Additional treatment was discussed and has been addressed on an ongoing basis within the context of this patient's illness, resources, progress, and other appropriate factors. Being compliant with a regular exercise routine, consistent medication use, ongoing psychotherapy, eating and sleeping well, as well as the importance of handling stress, was discussed. 04/29/2025 Other May self-administer medications or be administered own oral medications per [facility] protocols. Provided informed consent with understanding of side effects, adverse effects, risks and benefits as well as alternative treatments as previously discussed and with the above recommended medications & other aspects of the treatment program. Agrees to return sooner if symptoms worsen or suicidal or homicidal ideations occur. Medication Hx: -Benztropine was discontinued at the [facility] -Hydroxyzine Pamoate (helpful for the first couple weeks, made my anxiety worse) -Risperdal (allergy) -Haldol (allergy) -Zoloft (felt like crap) -Buhler (shaking) -Fluoxetine -Desipramine Medication Plan: -Continue Buspirone to 10 mg 2 tablets by mouth TID (TDD 60 mg) -Continue Chlorpromazine 100 mg BID -Continue Sertraline 200 mg once daily -Continue Prazosin 5 mg 2 capsules QHS TOTAL 10 MG -Increase Benztropine to 1 mg BID for RLS -Start Trazodone 50 mg QHS PRN *ordered fasting labs -Follow up: 4 weeks [] Hard Rx handed to patient [] Rx phoned into pharmacy [x] Rx faxed/e-prescribed into pharmacy [] PDMP Reviewed [] [facility] Reviewed Encouraged by Jenny Hernandez [facility] to: [] consider utilizing therapist/counselor /certified social workers in health care/psychologist , referral given [] continue with therapist/counselor /certified social workers in health care/psychologist Psychoeducation: -Treatment options discussed in detail with patient/guardian verbalizing understanding of treatment rationales. -Side effects and benefits of all medications prescribed discussed at length between psychiatric prescribing provider and patient/guardian along with the risks associated of admy-dl-elqy interactions, including but not limited to prescription medications, OTC medications, vitamins, minerals and herbal supplements. -Patient/Guardian and provider dialogue showcased verbalized understanding from patient on rationales of medication risk vs benefits. -Information with neurobiology of presenting neurotransmitter disorder, mood stability, sleep hygiene and 7-8 hours of uninterrupted sleep per night with wakeful and refreshed awakening and day long alertness discussed. -Reduction of stress and anxiety to aid in focus and concentration discussed, again, with patient/guardian physically nodding, voicing understanding, and engaged in treatment plan with Jenny Hernandez HNP-BC. -Perceiving complete understanding of rationale by patient/guardian and willingness to adhere to formulated plan of care by prescriber with patient/guardian buy-in, willingness to participate actively in plan of care and willing to take charge of own care. -Although geared for female patients, all patients/guardians are informed by prescribing provider of risks of medications that could potentially be taken by female/women within their zuni of influence and that women who use medicine during have a higher chance of having a baby with defects. -Patient/Guardian denies being and/or knowing of women who are at present and denies wanting to become in the foreseeable future, 0-6 months from now. -Patient/Guardian again informed of the risk of pharmaceutical medications consumed during and how there are potential negative effects on the developing fetus. -Patient/Guardian verbalizes understanding of rationale and physically nods head in agreement that if a should occur, to consult with provider, ELEMENTARY EDUCATION TUTOR and/or Nurse Aquatic Scientist to determine if prescribed medications should or should not be continued. -Instructions regarding both the medical/pharmacolog ical and non-pharmacologic aspects of the treatments employed were given, and the patient/guardian seemed to understand this. Risks and benefits of treatment, and of non-treatment, were also discussed. The patient/guardian understands the more frequent side effects associated with the medications. -The use of psychotherapy was addressed today and will continue on an as needed basis for the foreseeable future. The choice is, of course, ultimately left to the patient/guardian. -Patient/Guardian was encouraged to make a follow-up appointment for the next visit. -Additional treatment was discussed and has been addressed on an ongoing basis within the context of this patient's illness, resources, progress, and other appropriate factors. Being compliant with a regular exercise routine, consistent medication use, ongoing psychotherapy, eating and sleeping well, as well as the importance of handling stress, was discussed. Plan Of Treatment Pending Test Test Name Order Date Hemoglobin A1c* 04/29/2025 Vitamin B12* 04/29/2025 CBC With Differential/Platelet* 04/29/20 25 Vitamin D, 25-Hydroxy* 04/29/2025 Lipid Panel* 04/29/2025 CMP 14 Comprehensive Metabolic Panel* 14 Panel Urine Drug Screen 04/29/2025 Next Appt Details Provider Name:Jenny Elias Nicole hernandez, 05/27/2025 02:40:00 PM, [address] [place], [address], Insurance Providers Payer Name Payer Address Payer Phone Subscriber Number Group Number Insured Name Patient Relationship to Insured Coverage Start Date Coverage End Date MEDICARE PART A [address] [place] [address] [id number] Mahnaz Oseguera Self - patient is the insured 3 MEDICAID [address] [place] [address] [id number] Mahnaz Oseguera Self - patient is the insured 3 MEDICARE [employer]SE [employer] [address] [place] [address] [id number] Mahnaz Oseguera Self - patient is the insured 5 Medical (General) History Medical History History ICD Code Uretal cancer - resolved Constipation Surgical History Surgery Date(Month/Year) back surgery 1999 hysterectomy 2000 foot surgery cancer 07/2023 Hospitalization History Reason Date(Month/Year) hysterectomy 2000 back surgery 1999 Medical inpatient for UTI, low potassium .[facility] 01/2025 Psychiatric inpatient in [place], not taking my medication 1996 Psychiatric inpatient for OD on medicine s for trying to get high Jul 2023 Psychiatric inpatient for I over dosed , [place] for 3 days Sep 2023 foot surgery
--- OUTSIDE RECORDS SUMMARY | 2025-05-15 15:03 | XMS_ITS | Clinical Summary ---
Author Organization [facility] [place] [address] Address [address] [place] [address] Care Team Providers Care Lithopone Charger Name Role Phone Neil Barbour MD Primary Care Provider Ismael Vanegas MD Unavailable [phone] Allergies Active Allergy Reactions Criticality Noted [...] Medium 10/19/2012 unk Lidocaine Unknown 10/19/2012 unk Putpimxh-Ucvdqecpvd-Inbzy yxin Olanzapine Anaphylaxis High 10/19/2012 unk Oxycodone [...] Back Surgery - (Added by TW Conv) MS TOTAL ABDOMINAL HYSTERECT W/WO RMVL TUBE OVARY Hysterectomy - (Added by TW Conv) MS TONSILLECTOMY PRIMARY/SEC ONDARY <AGE 12 Tonsillectomy - [...] Day Cigarettes 1 48 Smokeless Tobacco: Never [facility] Utilities Answer Date Recorded In the past 12 months has e electric, gas, oil, or water company threatened to shut off services in your home? No 08/07/2023 Social Connection and Isolation Panel Answer Date Recorded In a typical week, how many times do you talk on the phone with family, friends, or neighbors? More than three times a week 08/07/2023 How often do you get togethe r with friends or relatives? More than three times a week 08/07/2023 How often do you attend chur ch or presybeterian services? Never 08/07/2023 Do you belong to any clubs o r organizations such as hinduism groups, unions, fraternal or athletic groups, or [...] place to sleep or slept in a alf (including now)? No 08/07/2023 Personal Safety Answer Date Recorded Have you ever been in or are you currently in a harmful physical or emotional relationship or is someone making you feel afraid or unsafe? 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 Gender Identity Not on file Sexual Orientation Not on file Obstetrics History Last Filed Vital Signs Vital Sign Reading Time Taken Comments Blood Pressure 109/63 08/07/2023 3:31 PM PREPARATOR Pulse 101 08/07/2023 3:31 PM PREPARATOR Temperature 36.9 C (98.5 F) 08/07/2023 3:31 PM PREPARATOR Respiratory Rate 18 08/07/2023 3:31 PM PREPARATOR Oxygen Saturation 98% 08/07/2023 3:31 PM PREPARATOR Inhaled Oxygen Concentration - - Weight 71.7 kg (158 lb 1.1 oz) 08/05/2023 12:15 PM PREPARATOR Height 157.5 cm (5' 2) 08/05/2023 12:15 PM PREPARATOR Body Mass Index 28.91 08/05/2023 12:15 PM PREPARATOR Plan of Treatment Health Maintenance Due Date Last Done Comments Breast Cancer Screening-Mammogram 1966 Colon Cancer Screening-Colonoscopy 1966 Depression Screening 1966 Hepatitis B Screening 1984 Regular Well Visit/Exam 18-64 1984 Pneumococcal vaccine <65 (1 of 2 - PCV) 1985 DTaP/Tdap/Td Vaccine (1 - Tdap) 10/06/2012 3 Zoster Vaccine (1 of 2) 2016 Influenza Vaccine (#1) 2025 3, 07/04/2021, 05/18/2020, Additional history exists Hepatitis C Screening Completed 06/22/2010 Medical Devices Implanted Type Area Engraver Letter Device Identifier Shelf Expiration Date Model / Serial / Lot [employer] Contour 6fr 26cm Large Inner Lumen Low Profile Bladder Shane Taper Latex Free 180-223 - [id number] Implanted:Qty: 1 on 08/05/2023 by Ismael Vanegas MD at [facility] Stent Right: Ureter [employer] 04/01/2026 [id number] / / [id number] Insurance MEDICARE [facility] MEDICARE IDPA MEDICARE IDPA Advance Directives For more information, please contact: [phone] * Full Code (Latest Code Status on File) Date Activated Date Inactivated Comments 08/05/2023 8:31 PM 08/07/2023 7:47 PM Care Teams Lithopone Charger Relationship Specialty Start Date End Date Neil Barbour MD [address] [address] PCP - General Gastroenterology 03/27/23 [place] [address] [place] [address] Consulting Physician Urology 08/07/23
--- OUTSIDE RECORDS SUMMARY | 2025-05-15 15:03 | XMS_ITS | Clinical Summary ---
Author Organization [facility] Address [address] [place] [address] Care Team Providers Care Antisqueak Filler Name Role Phone Neil Barbour MD Primary Care Provider Unavail able Allergies Active Allergy Reactions Criticality Noted Date Comments Aminoglycosides Unknown 10/19/2012 unk Amoxicillin Hives 03/06/2025 Amoxicillin-Pot Clavulanate Hives Medium 07/25/2023 Asenapine Hives 03/06/2025 Veapkey-Hrujcfjs-Kxxafzezl -Hc Rash Low 03/06/2025 Bacitracin Unknown 10/19/2012 unk Benzalkonium Chloride Rash Medium 10/16/2023 Ciprofloxacin Unknown,Vomiting 10/19/2012 unk Codeine Itching Low 10/19/2012 unk Corticosteroids Other (see comment),Unknown Low 07/25/2023 Patient states she goes into a rage Dexamethasone Unknown 10/19/2012 unk Erythromycin Hives 03/06/2025 Grass Pollen(K-O-R-T-Swt Navi) Rash Low 03/06/2025 Haloperidol Anaphylaxis,Unknown High 10/19/2012 unk Haldol Ibuprofen Unknown,Vomiting 03/06/2025 Ketorolac Vomiting 03/06/2025 Latex Rash Medium 10/19/2012 unk Lidocaine Unknown 10/19/2012 unk Olanzapine Anaphylaxis,Swellin g High 10/19/2012 unk Zyprexa Oxycodone Itching Low 10/19/2012 unk Polymyxin B Hives Medium 10/19/2012 unk Prochlorperazine Hives Medium 10/16/2023 Risperidone Anaphylaxis,Hives High 10/19/2012 unk Sulfa Antibiotics Hives Medium 10/19/2012 unk Tramadol Rash,Unknown Medium 10/19/2012 unknown Tuberculin, Ppd Unknown 10/19/2012 unk Medications cephALEXin (KEFLEX) 500 MG capsule Take 1 capsule (500 mg total) by mouth 2 (two) times daily for 10 days. 20 capsule 04/05/2025 04/15/20 25 Encounters Date Type Department Care Team Description 04/04/2025 4:41 PM CDT - 04/05/2025 5:07 PM CDT Emergency [facility] Emergency Room [address] [place] [address] Fiorella Mcintosh MD Brahmavar, Ameet S, MD Hughes, Joycelyn Burks MD Psychosocial Complaints Discharge Disposition: Home or Self Care (Routine Discharge) 04/04/2025 Travel 03/06/2025 11:05 PM CDT - 03/07/2025 6:45 PM CDT Emergency [facility] Emergency Room [address] [place] [address] Vasquez Vences MD Geldmacher, Zofia Cruz MD Ingestion Intentional Discharge Disposition: Psychiatric Hospital 03/06/2025 Travel from Last 3 Months Social History Tobacco Use Types Packs/Day Years Used Date Smoking Tobacco: Never Assessed Comments No Sex and Gender Information Value Date Recorded Sex Assigned at Female 04/04/2025 7:11 PM CDT 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 Gender Identity Female 04/04/2025 7:11 PM CDT Sexual Orientation Don't know 04/04/2025 7: 11 PM CDT Last Filed Vital Signs Vital Sign Reading Time Taken Comments Blood Pressure 136/79 04/05/2025 4:21 PM CDT Pulse 88 04/05/2025 4:21 PM CDT Temperature 36.7 C (98 F) 04/05/2025 4:21 PM CDT Respiratory Rate 16 04/05/2025 4:21 PM CDT Oxygen Saturation 99% 04/05/2025 4:21 PM CDT Inhaled Oxygen Concentration - - Weight 81.6 kg (180 lb) 04/04/2025 4:15 PM CDT Height 170.2 cm (5' 7) 04/04/2025 4:15 PM CDT Body Mass Index 28.19 04/04/2025 4:15 PM CDT Plan of Treatment Health Maintenance Due Date Last Done Comments Cervical Cancer Screening Pa p Smear (Age 30 to 64) Every 3 Years 1966 Colorectal Cancer Screening Colonoscopy (10 Years) 1966 Annual Physical 1969 Hepatitis C 1984 Hepatitis B Vaccines (1 of 3 - 19+ 3-dose series) 1985 Cervical Cancer Screening Pa p with HPV Testing (Age 30 to 64) Every 5 Years 1996 Cervical Cancer Screening with HPV 1996 Mammogram Screening 2006 Zoster Vaccines (1 of 2) 2016 COVID-19 Vaccine (2023-2 5 season) 2024 DTaP, Tdap and Td Vaccines ( 2 - Td or Tdap) 01/15/2035 01/15/2025 Pneumococcal Vaccine: 50+ Years Completed Meningococcal B Vaccine Aged Out No l onger eligible based on patient's age to complete this topic Meningococcal Vaccine Aged Out No sondra sydnee eligible based on patient's age to complete this topic RSV Immunizations Under 20 Months Aged Out No longer eligible based on patient's age to complete this topic Procedures Procedure Name Priority Date/Time Associated Diagnosis Comments DRUG SCREEN RAPID STAT 04/05/2025 3:5 8 AM CDT URINALYSIS, AUTO, COMPLETE STAT 04/05/2025 3:58 AM CDT CORONAVIRUS (COVID 19) STAT 12:51 AM CDT TSH W/REFLEX STAT 04/05/2025 12:51 AM CDT SALICYLATE STAT 04/05/2025 12:51 AM CDT ACETAMINOPHEN STAT 04/05/2025 12:51 AM CDT ETHANOL STAT 04/05/2025 12:51 AM CDT COMPREHENSIVE METABOLIC PANEL STAT 04/05/2025 12:51 AM CDT CBC W/DIFF AUTOMATED STAT 04/05/2025 12:51 AM CDT CORONAVIRUS (COVID 19) STAT 1:44 PM CDT DRUG SCREEN RAPID STAT 03/07/2025 7:5 6 AM CDT ECG 12-LEAD Routine 03/07/2025 4:34 AM CDT SALICYLATE Routine 03/07/2025 3:12 AM CDT COMPREHENSIVE METABOLIC PANEL Routine 03/07/2025 3:12 AM CDT CK (CPK) Routine 03/07/2025 3:12 AM CDT ACETAMINOPHEN STAT 03/07/2025 3:12 AM CDT PROTHROMBIN TIME, VENOUS STAT 03/07/2025 12:18 AM CDT SALICYLATE STAT 03/06/2025 11:15 PM CDT ACETAMINOPHEN STAT 03/06/2025 11:15 PM CDT ETHANOL STAT 03/06/2025 11:15 PM CDT COMPREHENSIVE METABOLIC PANEL STAT 03/06/2025 11:15 PM CDT CBC W/DIFF AUTOMATED STAT 03/06/2025 11:15 PM CDT TSH W/REFLEX STAT 03/06/2025 11:08 PM CDT from Last 3 Months Results * (ABNORMAL) DRUG SCREEN RAPID (04/05/2025 3:58 AM CDT) Only the most recent of2 resultswithin the time period is included. AMPHETAMINE (U) DETECTED(A) NONE DETECTED 04/05/2025 4:[address] [facility] BARBITURATES SCREEN (U) DETECTED(A) NONE DETECTED 04/05/2025 4:[address] [facility] BENZODIAZEPINES SCREEN (U) DETECTED(A) NONE DETECTED 04/05/2025 4:[address] [facility] BUPRENORPHINE SCREEN (U) NONE DETECTED NONE DETECTED 04/05/2025 4:[address] [facility] COCAINE METABOLITES (U) NONE DETECTED NONE DETECTED 04/05/2025 4:[address] [facility] METHAMPHETAMINE (U) DETECTED(A) NONE DETECTED 04/05/2025 4:[address] [facility] METHADONE (U) NONE DETECTED NONE DETECTED 04/05/2025 4:[address] [facility] OPIATE SCREEN (U) DETECTED(A) NONE DETECTED 04/05/2025 4:[address] [facility] OXYCODONE SCREEN (U) NONE DETECTED NONE DETECTED 04/05/2025 4:[address] [facility] PHENCYCLIDINE PCP (U) NONE DETECTED NONE DETECTED 04/05/2025 4:[address] [facility] CANNABINOIDS SCREEN (U) NONE DETECTED NONE DETECTED 04/05/2025 4:[address] [facility] TRICYCLIC ANTIDEPRESSANT SCREEN (U) NONE DETECTED NONE DETECTED 04/05/2025 4:[address] [facility] Comment: NOTE: RESULTS OF THIS DRUG SCREEN SHOULD BE USED FOR MEDICAL PURPOSES ONLY AND NOT FOR LEGAL OR EMPLOYEMENT PURPOSES. MEDICATIONS CONTAINING EPHEDRINE MAY CAUSE FALSE POSITIVE AMPHETAMINE. AMPHETAMINE- 500 NG/ML BARBITURATE- 200 NG/ML BENZODIAZEPINE- 150 NG/ML BUPRENORPHINE- 10 NG/ML COCAINE- 150 NG/ML METHAMPHETAMINES- 500 NG/ML METHADONE- 200 NG/ML OPIATE- 100 NG/ML OXYCODONE- 100 NG/ML PCP- 25 NG/ML THC- 50 NG/ML TCA- 300 NG/ML URINE SPECIMEN / Unknown 04/05/2025 3:58 AM CDT Jordan Schofield MD URINE ORDERABLES Final Resu lt [facility] [address] [place] [address], [place] [phone] * (ABNORMAL) URINALYSIS, AUTO, COMPLETE (04/05/2025 3:58 AM CDT) COLOR (U) DARK YELLOW 04/05/2025 4:[address] [facility] TRANSPARENCY CLOUDY 04/05/2025 4:[address] [facility] SPECIFIC GRAVITY (U) 1.025 1.000 - 1.030 04/05/2025 4:[address] [facility] U PH 6.0 5.0 - 9.0 04/05/2025 4:[address] [facility] LEUKOCYTES (U) 1+(A) NEGATIVE 04/05/2025 4:[address] [facility] NITRITES POSITIVE(A) NEGATIVE 04/05/2025 4:[address] [facility] PROTEIN RANDOM (U) 2+(A) NEGATIVE 04/05/2025 4:[address] [facility] GLUCOSE (U) NEGATIVE NEGATIVE 04/05/2025 4:[address] [facility] KETONES MG/DL (U) 1+(A) NEGATIVE 04/05/2025 4:[address] [facility] BILIRUBIN (U) NEGATIVE NEGATIVE 04/05/2025 4:[address] [facility] BLOOD (U) TRACE(A) NEGATIVE 04/05/2025 4:[address] [facility] WBC/HPF 10-25 0 - 5 /HPF 04/05/2025 4:[address] [facility] RBC/HPF 0-5 0 - 5 /HPF 04/05/2025 4:[address] [facility] EPI/HPF MODERATE /HPF 04/05/2025 4:[address] [facility] BACTERIA (U) MANY /HPF 04/05/2025 4:[address] [facility] URINE SPECIMEN OBTAINED BY CLEAN CATCH PROCEDURE / Unknown 04/05/2025 3:58 AM CDT us Jordantrip Schofield MD URINE ORDERABLES Final Resu lt [facility] [address] [place] [address], * CORONAVIRUS (COVID-19) MOLECULAR (04/05/2025 12:51 AM CDT) Only the most recent of2 resultswithin the time period is included. CORONAVIRUS SARS COV 2 RNA NEGATIVE NEGATIVE 04/05/2025 1:[address] [facility] Comment: NEGATIVE RESULTS DO NOT RULE OUT COVID 19 AND SHOULD NOT BE USED THE SOLE BASIS FOR TREATMENT OR PATIENT MANAGEMENT DECISIONS, INCLUDING INFECTION CONTROL DECISIONS. NEGATIVE RESULTS SHOULD BE CONSIDERED IN THE CONTEXT OF A PATIENT'S RECENT EXPOSURES, HISTORY AND THE PRESENCE OF CLINICAL SIGNS AND SYMPTOMS CONSISTENT WITH COVID 19. THE ID NOW COVID-19 2.0 TEST HAS BEEN AUTHORIZED BY THE FDA UNDER EAU FOR USE BY AUTHORIZED LABORATORIES. PERFORMED BY NUCLEIC ACID AMPLIFICATION FOR MOLECULAR QUALITATIVE DETECTION OF SARS-COV-2. SPECIMEN TYPE NASAL 04/05/2025 12:[address] [facility] NASOPHARYNGEAL SWAB / Unknown 04/05/2025 12:51 AM CDT us Jordan Schofield MD MICROBIOLOGY - GENERAL ORDE [facility] Final Result Performing Organization Address City/[facility]/ZIP Co de Phone Number [facility] [address] [place] [address], [place] [phone] * TSH W/REFLEX (04/05/2025 12:51 AM CDT) Only the most recent of2 resultswithin the time period is included. TSH 2.153 0.358 - 3.74 uIU/ML 04/05/2025 1:[address] [facility] Comment: HIGH DOSES OF BIOTIN MAY INTERFERE WITH THIS TEST RESULT. CORRELATION TO CLINICAL HISTORY AND PRESENTATION RECOMMENDED. FREE T4 NOT INDICATED 04/05/2025 12:5 1 AM CDT us Jordan Schofield MD LABORATORY Final Resul t Performing Organization Address [facility] Co de Phone Number [facility] [address] [place] [address], [place] [phone] * (ABNORMAL) COMPREHENSIVE METABOLIC PANEL (04/05/2025 12:51 AM CDT) Only the most recent of3 resultswithin the time period is included. GLUCOSE 100(H) 70 - 99 MG/DL 04/05/2025 1:[address] [facility] BUN 10 7 - 18 MG/DL 04/05/2025 1:[address] [facility] CREATININE S/P/B 0.50(L) 0.55 - 1.02 MG/DL 04/05/2025 1:[address] [facility] SODIUM S/P/B 139 136 - 145 MMOL/L 04/05/2025 1:[address] [facility] POTASSIUM S/P/B 3.0(LL) 3.5 - 5.1 MMOL/L 04/05/2025 1:[address] [facility] Comment: Critical Result(s) Called at: 01:31:30 on 04/05/2025 by: EDVIN ROACH to and read back by: JENNIFER Fang CHLORIDE S/P/B 103 100 - 108 MMOL/L 04/05/2025 1:[address] [facility] CO2 24.9 21 - 32 MMOL/L 04/05/2025 1:[address] [facility] CALCIUM S/P/B 9.1 8.5 - 10.1 MG/DL 04/05/2025 1:[address] [facility] BILIRUBIN TOTAL S/P/B 1.2 0.2 - 1.2 MG/DL 04/05/2025 1:[address] [facility] TOTAL PROTEIN S/P/B 8.3(H) 6.4 - 8.2 G/DL 04/05/2025 1:[address] [facility] ALBUMIN S/P/B 3.8 3.4 - 5.0 G/DL 04/05/2025 1:[address] [facility] AST 65(H) 15 - 37 U/L 04/05/2025 1:[address] [facility] ALT 51 14 - 55 U/L 04/05/2025 1:[address] [facility] ALKALINE PHOSPHATASE S/P/B 99 50 - 136 U/L 04/05/2025 1:[address] [facility] ANION GAP 11.1 5 - 15 MMOL/L 04/05/2025 1:[address] [facility] BUN CREATININE RATIO 20.0 6 - 26 04/05/2025 1:[address] [facility] A/G RATIO 0.8(L) 1.0 - 2.0 RATIO 04/05/2025 1:[address] [facility] GFR ESTIMATE >90 >90 ML/MIN/1.7 3 M2 04/05/2025 1:[address] [facility] Comment: NOTE: eGFR is not calculated for patients <18 years of age. This is an estimated GFR calculation using the new CKD EPI creatinine equation without race and so does not require a correction factor for race. This estimated GFR should not be used for calculating drug doses. 04/05/2025 12:5 1 AM CDT Jordan Schofield MD LABORATORY Final Resul t [facility] [address] [place] [address], * (ABNORMAL) CBC W/DIFF AUTOMATED (04/05/2025 12:51 AM CDT) Only the most recent of2 resultswithin the time period is included. WBC 9.35 4.4 - 11.0 x10'3/uL 04/05/2025 1:[address] [facility] RBC 3.87(L) 4.50 - 5.10 x10'6/uL 04/05/2025 1:[address] [facility] HGB 14.5 12.3 - 15.3 G/DL 04/05/2025 1:[address] [facility] HCT 42.2 35.9 - 44.6 % 04/05/2025 1:[address] [facility] MCV 109.0(H) 80.0 - 96.0 FL 04/05/2025 1:[address] [facility] MCH 37.5(H) 25.3 - 30.9 PG 04/05/2025 1:[address] [facility] MCHC 34.4(H) 31.0 - 34.1 G/DL 04/05/2025 1:[address] [facility] RDW 12.3(L) 12.4 - 15.1 % 04/05/2025 1:[address] [facility] PLT 266 151 - 353 x10'3/uL 04/05/2025 1:[address] [facility] MPV 9.8 9.6 - 12.0 FL 04/05/2025 1:[address] [facility] RBC MORPHOLOGY NORMAL 04/05/2025 1:[address] [facility] PLT MORPH. NORMAL 04/05/2025 1:[address] [facility] WBC MORPHOLOGY NORMAL 04/05/2025 1:[address] [facility] LYMPHOCYTES % 15.7(L) 15.8 - 45.0 % 04/05/2025 1:[address] [facility] NEUTROPHILS % 68.8 42.1 - 71.9 % 04/05/2025 1:[address] [facility] MONOCYTES % 12.0 5.7 - 12.5 % 04/05/2025 1:[address] [facility] EOSINOPHILS 2.7 0.0 - 5.6 % 04/05/2025 1:[address] [facility] BASOPHILS 0.6 0.0 - 1.3 % 04/05/2025 1:[address] [facility] ABS. NEUTROPHILS 6.43(H) 1.40 - 6.00 x10'3/uL 04/05/2025 1:[address] [facility] IMMATURE GRANS % 0.2 0.0 - 0.5 % 04/05/2025 1:[address] [facility] ABS. LYMPHOCYTES 1.47 0.80 - 4.70 x10'3/uL 04/05/2025 1:[address] [facility] 04/05/2025 12:5 1 AM CDT us Jordan Schofield MD LABORATORY Final Resul t Performing Organization Address [facility] de Phone Number [facility] [address] [place] [address], [place] [phone] * SALICYLATE (04/05/2025 12:51 AM CDT) Only the most recent of3 resultswithin the time period is included. SALICYLATES 3.9 2.8 - 20.0 MG/DL 04/05/2025 1:[address] [facility] Comment: THERAPEUTIC: 2.8-20.0 Toxic Level: >=30 04/05/2025 12:5 1 AM CDT us Jordan Schofield MD LABORATORY Final Resul t Performing Organization Address [facility] de Phone Number [facility] [address] [place] [address], [place] [phone] * ETHANOL (04/05/2025 12:51 AM CDT) Only the most recent of2 resultswithin the time period is included. ALCOHOL S/P/B <0.003 <0.003 G/DL 04/05/2025 1:[address] [facility] 04/05/2025 12:5 1 AM CDT us Jordan Schofield MD LABORATORY Final Resul t Performing Organization Address [facility] Co de Phone Number [facility] [address] [place] [address], [place] [phone] * (ABNORMAL) ACETAMINOPHEN (04/05/2025 12:51 AM CDT) Only the most recent of3 resultswithin the time period is included. ACETAMINOPHEN S/P/B <0.5(L) 10.0 - 30.0 MCG/ML 04/05/2025 1:[address] [facility] Comment: THERAPEUTIC: 10-30 TOXIC: >200 04/05/2025 12:5 1 AM CDT Jordan Schofield MD LABORATORY Final Resul t Performing Organization Address [facility] Co de Phone Number [facility] [address] [place] [address], * ECG 12 lead (03/07/2025 4:34 AM CDT) 03/07/2025 4:34 AM CDT Narrative [facility] RAD - 03/07/2025 11:[address] 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1965 Requested By: VASQUEZ VENCES Order Number: [id number] Reading MD: Sage Santa Measurements Intervals [place] Rate: 96 P: 67 SC: 144 QRS: -10 QRSD: 106 T: 21 QT: 376 QTc: 477 Interpretive Statements SINUS RHYTHM LOW QRS VOLTAGE IN PRECORDIAL LEADS [QRS DEFLECTION < 1.0 mV IN CHESTLEADS] RSR' pattern Vasquez Vences MD ECG ORDERABLES Final Result Performing Organization Address [facility] Co de Phone Number [facility]) RAD * CK (CPK) (03/07/2025 3:12 AM CDT) CPK 104 26 - 192 U/L 03/07/2025 4:[address] [facility] 03/07/2025 3:12 AM CDT Vasquez Vences MD LABORATORY Final Result Performing Organization Address [facility] de Phone Number [facility] [address] [place] [address], [place] [phone] * PROTIME/INR, VENOUS (03/07/2025 12:18 AM CDT) PROTIME 11.6 9.1 - 12.4 SEC 03/07/2025 12:[address] [facility] INR 1.0 03/07/2025 12:[address] [facility] Comment: Recommend INR ranges for Oral Anticoagulant Therapy: Mechanical Cardiac Values 2.5-3.5 All others indication 2.0-3.0 03/07/2025 12:1 8 AM CDT Vasquez Vences MD LABORATORY Final Result [facility] [address] [place] [address], [place] [phone] from Last 3 Months Insurance MEDICAID MEDICARE [id number] [facility] [address] Care Teams Antisqueak Filler Relationship Specialty Start Date End Date Neil Barbour MD PCP - General INTERNAL MEDICINE 12/18/23
--- NOTE | 2025-05-15 15:05 | ED.GENADULT ---
HPI - General Adult General Chief complaint: Overdose Stated complaint: OD Time Seen by Provider: 05/15/25 14:58 History of Present Illness HPI narrative: Patient 59-year-old female presents emergency department chief complaint of overdose. Patient was found laying on the floor by her mother with a in the pill bottle next to her Related Data Home Medications ?Medication ?Instructions ?Recorded ?Confirmed ?Last Taken ?Type benztropine 2 mg tablet 2 mg PO BID PRN involuntary 04/18/22 01/31/25 Unknown History movement prazosin 5 mg capsule 10 mg PO HS 04/18/22 01/31/25 Unknown History chlorpromazine 100 mg tablet 100 mg PO BID 03/27/23 02/01/25 Unknown History gabapentin 300 mg capsule 600 mg PO TID 05/25/23 02/01/25 Unknown History oqthbedhav-luwkbuaovzkgq-rpnqqnod 1 tablet PO Q8H PRN Headache 07/26/24 01/31/25 07/24/24 History 50 mg-325 mg-40 mg tablet benztropine 1 mg tablet 1 mg PO BID 01/31/25 01/31/25 Unknown History buspirone 30 mg tablet 30 mg PO BID 01/31/25 01/31/25 Unknown History ondansetron 4 mg disintegrating 4 mg translingual TID PRN nausea 01/31/25 01/31/25 Unknown History tablet and vomiting sertraline 100 mg tablet 200 mg PO DAILY 01/31/25 02/01/25 Unknown History Allergies Allergy/AdvReac Type Severity Reaction Status Date / Time grass pollen Allergy Intermediate Hives Verified 05/15/25 15:01 amoxicillin (From Augmentin) Allergy Hives Verified 05/15/25 15:01 asenapine (From Saphris) Allergy Hives Verified 05/15/25 15:01 bacitracin (From Neosporin Allergy Rash Verified 05/15/25 15:01 ([id number])) clavulanic acid (From Allergy Hives Verified 05/15/25 15:01 Augmentin) erythromycin base Allergy Hives Verified 05/15/25 15:01 latex Allergy Rash Verified 05/15/25 15:01 neomycin (From Neosporin Allergy Rash Verified 05/15/25 15:01 ([id number])) polymyxin B (From Neosporin Allergy Rash Verified 05/15/25 15:01 ([id number])) risperidone (From Risperdal) Allergy Hives Verified 05/15/25 15:01 tramadol (From Ultram) Allergy Rash Verified 05/15/25 15:01 ciprofloxacin AdvReac Vomiting Verified 05/15/25 15:01 ibuprofen AdvReac Vomiting Verified 05/15/25 15:01 Steriod AdvReac Agitated Uncoded 05/15/25 15:01 Review of Systems Review of Systems: A 10 system review of systems was completed on the patient and is negative except for what is stated in the HPI. Nursing and ancillary documentation was reviewed. [facility] Past Medical History Medical History Bipolar mood disorder Methamphetamine use GERD (gastroesophageal reflux disease) Major depression with psychotic features Carpal tunnel syndrome of right wrist Carcinoma of right ureter SVT (supraventricular tachycardia) Hepatitis C Alcohol abuse Schizoaffective disorder [place] toxicity Due to overdose/suicide attempt Requiring temporary dialysis Tobacco dependence Chronic obstructive pulmonary disease Distal radial fracture December 2022 Ankle fracture, lateral malleolus, closed December 2022 Seizure Migraine Anxiety Suicide attempt Multiple hospitalizations for suicide attempt with history of cutting Surgical History Surgical History History of right salpingo-oophorectomy Due to ectopic Status post lumbar discectomy (~1999) L5-S1 Status post open reduction with internal fixation of fracture Cervical spine fracture History of ureterostomy History of kidney surgery H/O dilation and curettage H/O tubal ligation History of tonsillectomy H/O foot surgery 2021 X2 H/O: hysterectomy 2000 hysterectomy with left oophorectomy Family History Family History Father Alcoholism Grandparent Diabetes mellitus Hypertension Heart disease Mother Kidney disease Grandparent Alcoholism Social History Social History Social History: Surrogate medical decision maker: Landy Silva, mother. Code status: Full code. Smoking packs per day: 1.5 Smoking cigarettes per day: 30.0 Years smoked: 45 Smoking pack-years: 67.50 Smoking status: Current every day smoker Tobacco type: cigarettes Second hand tobacco smoke exposure: No Alcohol intake: unknown Substance use: current Substance use type: painkillers and prescription drug Other substance usage details: Fioricet and [place] Last use: 01/30/2025 Lack of Transportation: No Lack of Food: Never True Current Housing: I Have Housing Concerned About Future Housing: No Difficulty Paying Gas/Electric Bills: No Difficulty Paying for Meds: No Currently Unemployed: No Education: High School Diploma/GED Difficulty w/ Childcare or Family Care: No Living arrangements: with family Additional living arrangements comments: Lives with mother in [place]. Occupation/Education: unemployed Additional occupation/education comments: Disabled. Spiritual care concerns: No Exam Narrative: GENERAL: Unkempt, confused. HEAD: Normocephalic, atraumatic. EYES: PERRLA and EOMI. ENT: Nares clear, no rhinorrhea or epistaxis. Mucous membranes moist. NECK: Supple. CHEST: Clear to auscultation. No respiratory distress. HEART: Regular rate and rhythm. No murmur heard. Normal peripheral pulses. ABDOMEN: Soft, nontender, nondistended, normal active bowel sounds. EXTREMITIES: Normal range of motion. No edema. SKIN: Warm, dry, no rash. NEURO: No focal deficits. Alert and confuse. PSYCH: Normal mood and affect. Course Vital Signs Vital signs: Vital Signs Pulse Rate 98 05/15/25 14:53 Respiratory Rate 05/15/25 14:53 Blood Pressure 118/76 05/15/25 14:53 Pulse Oximetry 96 05/15/25 14:53 Oxygen Delivery Room Air 05/15/25 14:53 Pulse Rate 98 05/15/25 14:53 Respiratory Rate 05/15/25 14:53 Blood Pressure 118/76 05/15/25 14:53 Pulse Oximetry 96 05/15/25 14:53 Oxygen Delivery Room Air 05/15/25 14:53 Medical Decision Making MDM Narrative Medical decision making narrative: Differential diagnosis includes polysubstance overdose, acetaminophen overdose, Patient had 80 [place] in the span of several days patient has an elevated acetaminophen level at 78 the case was discussed with poison control and given the current level the patient was recommended to be placed on a CD to protocol with following of serial acetaminophen levels The patient is also positive for barbiturates and opiates Lactate was 3.1 Vital Signs Vital Signs: Vital Signs Pulse Rate 98 05/15/25 14:53 Respiratory Rate 05/15/25 14:53 Blood Pressure 118/76 05/15/25 14:53 Pulse Oximetry 96 05/15/25 14:53 Oxygen Delivery Room Air 05/15/25 14:53 Pulse Rate 98 05/15/25 14:53 Respiratory Rate 19 05/15/25 14:53 Blood Pressure 118/76 05/15/25 14:53 Pulse Oximetry 96 05/15/25 14:53 Oxygen Delivery Room Air 05/15/25 14:53 Lab Data 05/15/25 15:43 05/15/25 15:43 Labs: Lab Results 05/15/25 Range/Units 15:43 WBC 13.1 H (4.5-10.0) K/mm3 RBC 3.95 L (4.2-5.4) M/mm3 Hgb 14.1 (12.0-15.0) g/dL Hct 42.1 (37.0-47.0) % MCV 106.6 H (80-100) fl MCH 35.7 H (26-34) pg MCHC 33.5 (32-36) g/dl RDW 12.2 (11.5-14.5) % Plt Count 341 (150-375) k/mm3 MPV 9.2 (7.4-10.4) fl Immature Gran % (Auto) 0.3 (0-0.5) % Neut % (Auto) 77.6 H (45.5-73.1) % Lymph % (Auto) 13.1 L (18.3-44.2) % [place] % (Auto) 7.9 (2.6-8.5) % Eos % (Auto) 0.7 (0-4.4) % Baso % (Auto) 0.4 (0.2-1.2) % Lymph # (Auto) 1.71 (0.9-3.2) K/mm3 [place] # (Auto) 1.0 H (0.1-0.6) K/mm3 Eos # (Auto) 0.1 (0-0.3) K/mm3 Baso # (Auto) 0.1 (0.0-0.1) K/mm3 Abs Immat Gran (auto) 0.04 H (0.00-0.031) K/mm3 Absolute Neuts (auto) 10.2 H (1.3-6.7) K/mm3 Absolute Nucleated RBC 0.000 (0.0-0.012) K/mm3 Band Neutrophils % Not Reportable Nucleated RBC % 0.0 (0.0-0.2) % Platelet Estimate Adequate (Adequate) Hypochromasia Occasional Macrocytosis 1+ (NORMAL) Schistocytes None seen PT 12.9 (11.1-14.7) Seconds INR 1.0 APTT 27.5 (22.3-36.8) Seconds Sodium 140 (137-145) mmol/L Potassium 3.3 L (3.4-5.0) mmol/L Chloride 107 (98-107) mmol/L Carbon Dioxide 21 L (22-30) mmol/L Anion Gap 12 (4-12) mmol/L BUN 11 D (7-17) mg/dL Creatinine 0.66 L (0.7-1.0) mg/dL Estim Creat Clear Calc 75 ml/min Estimated GFR > 60 (59 - ) Glucose 182 H (65-110) mg/dL Lactic Acid 3.1 H (0.7-2.0) mmol/L Calcium 9.2 (8.4-10.2) mg/dL Magnesium 2.0 (1.6-2.3) mg/dL Total Bilirubin 0.5 (0.2-1.3) mg/dL AST 32 (14-36) U/L ALT 25 (6-35) U/L Alkaline Phosphatase 98 (38-126) U/L Ammonia < 9 L (9-30) umol/L Total Creatine Kinase 88 (30-135) U/L Total Protein 8.1 (6.3-8.2) g/dL Albumin 4.3 (3.5-5.1) g/dL Urine Color Yellow (Yellow) Urine Appearance Clear (Clear) Urine pH 5.5 (5.0-9.0) Ur Specific [place] 1.016 (1.001-1.035) Urine Protein Trace (Negative) mg/dL Urine Glucose (UA) Negative (Negative) mg/dL Urine Ketones Negative (Negative) mg/dL Ur Blood (Man) Negative (Negative) Urine Nitrate Negative (Negative) Urine Bilirubin Negative (Negative) Urine Urobilinogen 0.2 (<2.0) mg/dL Leukocyte Esterase Rfl Negative (Negative) ROCHELLE/UL Urine RBC 0-2 (0-2) /hpf Urine WBC 0-5 (0-3) /hpf Ur Squamous Epith Cells None seen (Few) /hpf Urine Bacteria 1+ H /hpf Urine Casts 0-2 Salicylates < 1.0 L (2-20) mg/dL Urine Opiates Screen Positive A (Negative) Urine Methadone Screen Negative (Negative) Acetaminophen 78 H (10-30) ug/mL Ur Barbiturates Screen Positive A (Negative) Ur Phencyclidine Scrn Negative (Negative) Ur Amphetamine Screen Negative (Negative) U Benzodiazepines Scrn Negative (Negative) Urine Cocaine Screen Negative (Negative) U Cannabinoids Screen Negative (Negative) Ethyl Alcohol < 10 (<10) mg/dL ABG Data ABG results: 05/15/25 15:20 Puncture Site Right brachial ABG pH 7.404 ABG pCO2 36.4 ABG pO2 67.3 L ABG PO2/FiO2 Ratio 3.20 ABG HCO3 22.2 ABG O2 Saturation 93.6 L ABG O2 Content 19.1 ABG Base Excess -1.9 A-a Gradient 38.8 Oxyhemoglobin 90.7 Total Hemoglobin 15.0 O2 Delivery Device Not Reportable FiO2 21 Critical Care Time Critical Care Time Critical Care Time: Yes Total Critical Care Time: 35 Discharge Plan Discharge Clinical Impression: Acetaminophen overdose, Polysubstance overdose Patient Disposition: Still a Patient Condition: Stable Patient Language: Irish Prescriptions: No Action chlorpromazine 100 mg tablet 100 mg PO BID uoyrnhtqqs-cpzefgwubpcqc-wrdv 50-325-40 mg Tablet 1 tablet PO Q8H PRN (Reason: Headache) benztropine 1 mg tablet 1 mg PO BID buspirone 30 mg tablet 30 mg PO BID ondansetron 4 mg tablet,disintegrating 4 mg translingual TID PRN (Reason: nausea and vomiting) sertraline 100 mg tablet 200 mg PO DAILY prazosin 5 mg capsule 10 mg PO HS benztropine 2 mg tablet 2 mg PO BID PRN (Reason: involuntary movement) gabapentin 300 mg capsule 600 mg PO TID Follow-up/Referrals: Km,Neil Fang MD [Primary Care Provider] Time of Disposition: 16:16
[2025-05-15 15:30] LABS: Alveolar/Arterial O2 Gradient 38.8 mmHg; Fractional Inspired Oxygen 21 %; HCO3 ABG 22.2 mEq/l (22.0-26.0); Oxygen Content ABG 19.1 %vol (16.0-22.0); Oxygen Saturation ABG 93.6 % (95.0-100.0); PCO2 ABG 36.4 mmHg (35.0-45.0); PO2 ABG 67.3 mmHg (80.0-100.0); PO2 FiO2 Ratio Arterial Blood 3.20 %
[2025-05-15 15:32] LABS: Modified Allen's Test Pass; Site Drawn RIGHT BRACHIAL
[2025-05-15 15:50] LABS: Hematocrit 42.1 % (37.0-47.0); Hemoglobin 14.1 g/dL (12.0-15.0); Immature Granulocyte Percent A 0.3 % (0-0.5); Lymphocytes Absolute Auto 1.71 K/mm3 (0.9-3.2); Mean Corpuscular HGB Conc 33.5 g/dl (32-36); Mean Corpuscular Hemoglobin 35.7 pg (26-34); Mean Corpuscular Volume 106.6 fl (80-100); Nucleated Red Blood Cells Absolute Auto 0.000 K/mm3 (0.0-0.012); Nucleated Red Blood Cells Perc 0.0 % (0.0-0.2); Platelet Count Result 341 k/mm3 (150-375); Red Blood Count 3.95 M/mm3 (4.2-5.4); White Blood Count 13.1 K/mm3 (4.5-10.0)
[2025-05-15 15:57] LABS: Add Urine Microscopic? YES; Appearance Urine Clear (Clear); Glucose Urine UA Negative (Negative); Leukocyte Esterase Ur Negative LEU/UL (Negative); Nitrate Urine Negative (Negative); Non Pathogenic Casts 0-2; Specific Grav Ur 1.016 (1.001-1.035)
[2025-05-15 15:59] LABS: Ammonia < 9 umol/L (9-30)
[2025-05-15 16:00] LABS: Acetaminophen 78 ug/mL (10-30); Alanine Aminotransferase 25 U/L (6-35); Albumin Level 4.3 g/dL (3.5-5.1); Alkaline Phosphatase 98 U/L (38-126); Anion Gap 12 mmol/L (4-12); Aspartate Amino Transferase 32 U/L (14-36); Bilirubin,Total 0.5 mg/dL (0.2-1.3); Blood Urea Nitrogen 11 mg/dL (7-17); Calcium 9.2 mg/dL (8.4-10.2); Carbon Dioxide 21 mmol/L (22-30); Chloride 107 mmol/L (98-107); Creatine Kinase 88 U/L (30-135); Estimated CRCL calculation 75 ml/min; Estimated Glomerular Filt Rate > 60; Glucose 182 mg/dL (65-110); Magnesium 2.0 mg/dL (1.6-2.3); Potassium 3.3 mmol/L (3.4-5.0); Salicylate < 1.0 mg/dL (2-20); Sodium 140 mmol/L (137-145); Total Protein 8.1 g/dL (6.3-8.2)
[2025-05-15 16:03] LABS: INR 1.0; Prothrombin Time 12.9 Seconds (11.1-14.7)
[2025-05-15 16:04] LABS: Partial Thromboplastin Time 27.5 Seconds (22.3-36.8)
[2025-05-15 16:09] LABS: Hypochromasia Occasional; Macrocytosis 1+ (NORMAL); Schistocytes None Seen
[2025-05-15 16:10] LABS: Cannabinoid Screen Urine Negative (Negative)
[2025-05-15] MEDS: SODIUM CHLORIDE 0.9% IV 1,000 ML 999 ML IV CONT ×2 (17:03→18:38)
[2025-05-15] MEDS: DEXTROSE 5% IVPB ×3 (17:04→22:48)
[2025-05-15] MEDS: ACETYLCYSTEINE IVPB ×3 (17:04→22:48)
[2025-05-15] MEDS: WATER IVPB ×2 (17:04→18:33)
--- NOTE | 2025-05-15 17:53 | P.HP_ITS ---
H&P: HPI History of Present Illness Date/Time: 05/15/25 17:53 Chief Complaint: Altered mental status Narrative: 59-year-old female with history of narcotic and polypharmacy, bipolar, schizoaffective disorder, COPD, seizures abuse presents the hospital with altered mental status. Her mother found her laying on the floor with a pill bottle next her. Patient has been here before several times for overdose on na rcotic pain medications Tylenol. She has been evaluated several times by the crisis team and Psychiatry. Due to altered mental status HPI is limited. Patient is stated in the past that she is not trying to kill herself she just likes being high on medications. Will evaluate when alert. Lab work in the ED shows leukocytosis at 13.1 potassium of 3.3, carbon dioxide 21, creatinine of 0.66, glucose of 182, lactic acid of 3.1, ammonia less than 9, UA negative for infection, urine drug screen is positive for opioids, acetaminophen level of 78, barbiturates, negative for alcohol. Review of Systems Review of Systems: ROS unobtainable: Yes unobtainable due to mental status PMFSH Past Medical History Medical History Bipolar mood disorder Methamphetamine use GERD (gastroesophageal reflux disease) Major depression with psychotic features Carpal tunnel syndrome of right wrist Carcinoma of right ureter SVT (supraventricular tachycardia) Hepatitis C Alcohol abuse Schizoaffective disorder [place] toxicity Due to overdose/suicide attempt Requiring temporary dialysis Tobacco dependence Chronic obstructive pulmonary disease Distal radial fracture December 2022 Ankle fracture, lateral malleolus, closed December 2022 Seizure Migraine Anxiety Suicide attempt Multiple hospitalizations for suicide attempt with history of cutting Surgical History Surgical History History of right salpingo-oophorectomy Due to ectopic Status post lumbar discectomy (~1999) L5-S1 Status post open reduction with internal fixation of fracture Cervical spine fracture History of ureterostomy History of kidney surgery H/O dilation and curettage H/O tubal ligation History of tonsillectomy H/O foot surgery 2021 X2 H/O: hysterectomy 2000 hysterectomy with left oophorectomy Family History Family History Father Alcoholism Grandparent Diabetes mellitus Hypertension Heart disease Mother Kidney disease Grandparent Alcoholism Social History Social History Social History: Surrogate medical decision maker: Landy Silva, mother. Code status: Full code. Smoking packs per day: 1.5 Smoking cigarettes per day: 30.0 Years smoked: 45 Smoking pack-years: 67.50 Smoking status: Current every day smoker Tobacco type: cigarettes Second hand tobacco smoke exposure: No Alcohol intake: unknown Substance use: current Substance use type: painkillers and prescription drug Other substance usage details: Fioricet and [place] Last use: 01/30/2025 Lack of Transportation: No Lack of Food: Never True Current Housing: I Have Housing Concerned About Future Housing: No Difficulty Paying Gas/Electric Bills: No Difficulty Paying for Meds: No Currently Unemployed: No Education: High School Diploma/GED Difficulty w/ Childcare or Family Care: No Living arrangements: with family Additional living arrangements comments: Lives with mother in [place]. Occupation/Education: unemployed Additional occupation/education comments: Disabled. Spiritual care concerns: No Meds Home Medications and Allergies Home Medications ?Medication ?Instructions ?Recorded ?Confirmed ?Type benztropine 2 mg tablet 2 mg PO BID PRN involuntary 04/18/22 01/31/25 History movement prazosin 5 mg capsule 10 mg PO HS 04/18/22 5 History chlorpromazine 100 mg tablet 100 mg PO BID 03/27/23 History gabapentin 300 mg capsule 600 mg PO TID 05/25/2302/01 History mrmaqtyifv-lcmyljaarrgym-rqvjlouh 1 tablet PO Q8H PRN Headache 07/26/24 01/31/25 History 50 mg-325 mg-40 mg tablet benztropine 1 mg tablet 1 mg PO BID 01/31/25 5 History buspirone 30 mg tablet 30 mg PO BID 01/31/25 History ondansetron 4 mg disintegrating 4 mg translingual TID PRN nausea 01/31/25 01/31/25 History tablet and vomiting sertraline 100 mg tablet 200 mg PO DAILY 01/31/25 History Allergies Allergy/AdvReac Type Severity Reaction Status Date / Time grass pollen Allergy Intermediate Hives Verified 05/15/25 15:01 amoxicillin (From Augmentin) Allergy Hives Verified 05/15/25 15:01 asenapine (From Saphris) Allergy Hives Verified 05/15/25 15:01 bacitracin (From Neosporin Allergy Rash Verified 05/15/25 15:01 ([id number])) clavulanic acid (From Allergy Hives Verified 05/15/25 15:01 Augmentin) erythromycin base Allergy Hives Verified 05/15/25 15:01 latex Allergy Rash Verified 05/15/25 15:01 neomycin (From Neosporin Allergy Rash Verified 05/15/25 15:01 ([id number])) polymyxin B (From Neosporin Allergy Rash Verified 05/15/25 15:01 ([id number])) risperidone (From Risperdal) Allergy Hives Verified 05/15/25 15:01 tramadol (From Ultram) Allergy Rash Verified 05/15/25 15:01 ciprofloxacin AdvReac Vomiting Verified 05/15/25 15:01 ibuprofen AdvReac Vomiting Verified 05/15/25 15:01 Steriod AdvReac Agitated Uncoded 05/15/25 15:01 Vital Signs Vital Signs - 24 hr 05/15/25 14:53 05/15/25 17:10 05/15/25 17:10 Temperature 97.6 F Pulse Rate 98 105 H Respiratory Rate 19 17 Blood Pressure 118/76 130/82 Pulse Oximetry 96 95 94 Oxygen Delivery Room Air Room Air 05/15/25 17:11 Temperature Pulse Rate Respiratory Rate 21 H Blood Pressure Pulse Oximetry Oxygen Delivery Exam Narrative: General: Chronically-ill, disheveled HEENT: normocephalic, atraumatic. Mucous membranes moist. EOMI, PERRLA, bilateral sclera anicteric, no conjunctival injection. Neck supple without JVD, lymphadenopathy, or bruit. Respiratory: clear to ascultation bilaterally. No rales/rhonic/wheezes. Cardiovascular: Regular rate and rhythm, normal S1-S2 upon ascultation. No murmurs, rubs, or clicks. PMI is nondisplaced, capillary refill less than 3 second. Abdomen: Soft, round, no pulsatile masses, nondistended and nontender. No rebound, no guarding.No high pitch or tinkling sounds, resonant to percussion. Extremities: No cyanosis, clubbing, or edema present. Pulses are palpable 2/2. Active ROM to all four extremities. Neuro: Alert and orientated x 0. PERRLA. Cranial nerves 2-12 intact without focal deficit. Skin: Warm, dry, and intact, without rash, erythema, or lesion. Psych: Unable to assess H&P: Results Labs Labs: Short CBC 05/15/25 Range/Units 15:43 WBC 13.1 H (4.5-10.0) K/mm3 Hgb 14.1 (12.0-15.0) g/dL Hct 42.1 (37.0-47.0) % Plt Count 341 (150-375) k/mm3 BMP 05/15/25 15:43 Sodium 140 Potassium 3.3 L Chloride 107 Carbon Dioxide 21 L BUN 11 D Creatinine 0.66 L Glucose 182 H Calcium 9.2 Cardiac Enzymes 05/15/25 Range/Units 15:43 Total Creatine Kinase 88 (30-135) U/L Liver Function 05/15/25 Range/Units 15:43 Total Bilirubin 0.5 (0.2-1.3) mg/dL AST 32 (14-36) U/L ALT 25 (6-35) U/L Alkaline Phosphatase 98 (38-126) U/L Albumin 4.3 (3.5-5.1) g/dL Urine 05/15/25 Range/Units 15:43 Urine Color Yellow (Yellow) Urine Appearance Clear (Clear) Urine pH 5.5 (5.0-9.0) Ur Specific [place] 1.016 (1.001-1.035) Urine Protein Trace (Negative) mg/dL Urine Glucose (UA) Negative (Negative) mg/dL Assessment and Plan Assessment and plan (1) Acetaminophen overdose: Code(s): T39.1X1A - Poisoning by 4-Aminophenol derivatives, accidental (unintentional), initial encounter Status: Acute Assessment and Plan: ICU for monitoring Mucomyst drip Poison control Patient has several hospital admissions for Tylenol overdose due to abuse of prescriptions (2) Acute hypokalemia: Code(s): E87.6 - Hypokalemia Status: Acute Assessment and Plan: Replete as needed BMP in the morning (3) Leukocytosis: Code(s): D72.829 - Elevated white blood cell count, unspecified Status: Acute (4) Schizoaffective disorder: Qualifiers: Schizoaffective disorder type: bipolar Qualified Code(s): F25.0 - Schizoaffective disorder, bipolar type Code(s): F25.9 - Schizoaffective disorder, unspecified Status: Acute Assessment and Plan: Restart home medications once safe to swallow (5) Chronic obstructive pulmonary disease: Qualifiers: COPD type: unspecified COPD Qualified Code(s): J44.9 - Chronic obstructive pulmonary disease, unspecified Code(s): J44.9 - Chronic obstructive pulmonary disease, unspecified Status: Acute Assessment and Plan: No current signs of exacerbation Repeat chest x-ray in morning due to patient having leukocytosis she could possibly aspirated (6) Altered mental status: Code(s): R41.82 - Altered mental status, unspecified Status: Inactive Assessment and Plan: Due to use polypharmacy Hold sedated medications narcan as needed Plan Due to patient's altered mental status cannot complete med rec condition at this time Quality VTE Prophylaxis VTE prophylaxis: mechanical ordered and pharmacologic ordered Hospitalist MIPS Advance Care Plan I have confirmed that the patient's Advanced Care Plan is present, code status is documented, or surrogate decision maker is listed in patient medical record.: Yes
--- NOTE | 2025-05-15 18:25 | ADMGEN ---
This patient, Mahnaz Oseguera, was admitted to Intensive Care Unit-4. Patient/family oriented to hospital policies and general routines including ID bracelet, bed and alarms, visiting hours, pain management, procedures, bathroom and other care routines, personal items, smoking policy, room service/diet, and visiting hours. Information on how to activate the Rapid Response Team has been discussed. Patient/Family are encouraged to report perceived risks to care and to ask questions if they do not understand what they are told or what they should do.
[2025-05-15 19:50] LABS: MRSA (PCR) DETECTED (NOT DETECTE)
[2025-05-15] MEDS: SODIUM CHLORIDE 0.9% IV 1,000 ML 125 ML IV CONT (20:22)
[2025-05-15] MEDS: POTASSIUM CHLORIDE INJ 40 MEQ in SODIUM CHLORIDE 0.9% IV 500 ML 130 MEQ IVPB (20:22)
--- NOTE | 2025-05-15 22:39 | PC.NURSE ---
Poison Control called at 2206 for an update; will call back in the morning for another update.
[2025-05-16] VITALS (37 sets, daily range): BP systolic 91–135; BP diastolic 55–96; PULSE 41–110; RESP 12–38; TEMP 36.1–37.8; O2SAT 90–98
[2025-05-16 04:11] LABS: Hematocrit 38.8 % (37.0-47.0); Hemoglobin 12.9 g/dL (12.0-15.0); Immature Granulocyte Percent A 0.4 % (0-0.5); Lymphocytes Absolute Auto 1.78 K/mm3 (0.9-3.2); Mean Corpuscular HGB Conc 33.2 g/dl (32-36); Mean Corpuscular Hemoglobin 35.7 pg (26-34); Mean Corpuscular Volume 107.5 fl (80-100); Nucleated Red Blood Cells Absolute Auto 0.000 K/mm3 (0.0-0.012); Nucleated Red Blood Cells Perc 0.0 % (0.0-0.2); Platelet Count Result 301 k/mm3 (150-375); Red Blood Count 3.61 M/mm3 (4.2-5.4); White Blood Count 12.7 K/mm3 (4.5-10.0)
[2025-05-16 04:28] LABS: Anion Gap 8 mmol/L (4-12); Blood Urea Nitrogen 5 mg/dL (7-17); Calcium 8.6 mg/dL (8.4-10.2); Carbon Dioxide 19 mmol/L (22-30); Chloride 114 mmol/L (98-107); Estimated CRCL calculation 103 ml/min; Estimated Glomerular Filt Rate > 60; Glucose 109 mg/dL (65-110); Potassium 3.2 mmol/L (3.4-5.0); Sodium 141 mmol/L (137-145)
[2025-05-16 04:31] LABS: Anisocytosis 1+; Macrocytosis 1+ (NORMAL); Schistocytes None Seen
[2025-05-16] MEDS: SODIUM CHLORIDE 0.9% IV 1,000 ML 125 ML IV CONT (07:07)
[2025-05-16] MEDS: ENOXAPARIN 40 MG/0.4 ML SYRINGE SUB-Q (09:03)
[2025-05-16] MEDS: POTASSIUM CHLORIDE INJ 40 MEQ in SODIUM CHLORIDE 0.9% IV 500 ML 130 MEQ IVPB (09:03)
--- NOTE | 2025-05-16 09:11 | WPDCNINT ---
Assessment and Plan Assessment and plan (1) Acetaminophen overdose: Code(s): T39.1X1A - Poisoning by 4-Aminophenol derivatives, accidental (unintentional), initial encounter Status: Acute Assessment and Plan: Tylenol or does and part of polysubstance overdose One-to-one sitter and suicide precaution Tylenol level was 78 on presentation with normal liver enzymes N-acetylcysteine infusion was started after consultation with poison Control and will be continued Repeat labs ordered this afternoon including Tylenol level and LFTs (2) Polysubstance overdose: Code(s): T50.901A - Poisoning by unspecified drugs, medicaments and biological substances, accidental (unintentional), initial encounter Status: Acute Assessment and Plan: Patient likely took excessive amount of Provencal. Opioid effect has a wound likely worn off as patient is awake agitated and has no evidence of respiratory insufficiency Monitor (3) Schizoaffective disorder: Qualifiers: Schizoaffective disorder type: bipolar Qualified Code(s): F25.0 - Schizoaffective disorder, bipolar type Code(s): F25.9 - Schizoaffective disorder, unspecified Status: Acute Assessment and Plan: Currently NPO. Will hold psychiatric meds (4) Poly-drug misuser: Code(s): F19.90 - Other psychoactive substance use, unspecified, uncomplicated Status: Acute Assessment and Plan: Patient will be counseled once her mental status improved (5) Encephalopathy: Code(s): G93.40 - Encephalopathy, unspecified Status: Resolved Assessment and Plan: Toxic encephalopathy, head CT negative Ammonia normal Avoid sedatives monitor (6) Electrolyte abnormality: Code(s): E87.8 - Other disorders of electrolyte and fluid balance, not elsewhere classified Status: Resolved Assessment and Plan: Replace low potassium Patient also has hyperchloremia. Change fluids from normal saline to half-normal saline with KCl Plan DVT prophylaxis -Lovenox Nutrition -npo Code Status - Full Code Total Critical Care Time - 30 minutes Due to a high probability of clinically significant, life threatening deterioration, the patient required my highest level of preparedness to intervene emergently and I personally spent this critical care time directly and personally managing the patient. This critical care time included obtaining a history; examining the patient; pulse oximetry; ordering and review of studies; arranging urgent treatment with development of a management plan; evaluation of patient's response to treatment; frequent reassessment; and discussions with other providers. It was exclusive of separately billable procedures and treating other patients and teaching time. Please see Assessment and Plan section and the rest of the note for further information on patient assessment and treatment Maintenance Trainer Consult Note Consult date: 05/16/25 Reason for consult: overdose HPI: Mahnaz Oseguera is a 59 year old female with past medical history of narcotic and polypharmacy, bipolar, schizoaffective disorder, COPD, seizures, drug abuse presents and multiple admissions to the hospital presented yesterday to the ER with altered mental status. Her mother found her laying on the floor with a pill bottle next to her. She had recently failed Provencal and the complete pill bottle was empty. She has been admitted with drug overdose in the past. Patient was unable to provide any meaningful history as she was confused and agitated. Patient is stated in the past that she is not trying to kill herself but just likes being high on medications. Workup in the ER showed leukocytosis at 13.1 potassium of 3.3, carbon dioxide 21, creatinine of 0.66, glucose of 182, lactic acid of 3.1, ammonia less than 9, UA negative for infection, urine drug screen is positive for opioids, acetaminophen level of 78, barbiturates, negative for alcohol. Chest x-ray and head CT were negative This morning when I evaluated the patient patient is awake agitated. She has been physically restrained because she continues to pull her lines and tubes out. She continues to say 'help me' and 'I am scared' she is unable to provide any meaningful history and does not know why she in the hospital. Most of the time she only answers yes or no to questions. When I asked her if she is having pain shortness a breath nausea vomiting she answered no. I asked if she was hungry and she said no. When asked if she was thirsty she answered yes. When asked her if she took any pills she 1st said no and then said yes but then was unable to tell me the name or the amount of pills she took. Patient has fairly advanced psychiatric disorder and disability and has had similar mental status on her last admissions where she is confused agitated and unreliable when it comes to history. Review of Systems Review of Systems: ROS unobtainable: Yes unobtainable due to medical condition and unobtainable due to mental status PMFSH Past Medical History Medical History Bipolar mood disorder Methamphetamine use GERD (gastroesophageal reflux disease) Major depression with psychotic features Carpal tunnel syndrome of right wrist Carcinoma of right ureter SVT (supraventricular tachycardia) Hepatitis C Alcohol abuse Schizoaffective disorder [place] toxicity Due to overdose/suicide attempt Requiring temporary dialysis Tobacco dependence Chronic obstructive pulmonary disease Distal radial fracture December 2022 Ankle fracture, lateral malleolus, closed December 2022 Seizure Migraine Anxiety Suicide attempt Multiple hospitalizations for suicide attempt with history of cutting Surgical History Surgical History History of right salpingo-oophorectomy Due to ectopic Status post lumbar discectomy (~1999) L5-S1 Status post open reduction with internal fixation of fracture Cervical spine fracture History of ureterostomy History of kidney surgery H/O dilation and curettage H/O tubal ligation History of tonsillectomy H/O foot surgery 2021 X2 H/O: hysterectomy 2000 hysterectomy with left oophorectomy Family History Family History Father Alcoholism Grandparent Diabetes mellitus Hypertension Heart disease Mother Kidney disease Grandparent Alcoholism Social History Social History Social History: Surrogate medical decision maker: Landy Silva, . Code status: Full code. Smoking packs per day: 1.5 Smoking cigarettes per day: 30.0 Years smoked: 45 Smoking pack-years: 67.50 Smoking status: Current every day smoker Tobacco type: cigarettes Second hand tobacco smoke exposure: No Alcohol intake: unknown Substance use: current Substance use type: painkillers and prescription drug Other substance usage details: Fioricet and Provencal Last use: 01/30/2025 Lack of Transportation: No Lack of Food: Never True Current Housing: I Have Housing Concerned About Future Housing: No Difficulty Paying Gas/Electric Bills: No Difficulty Paying for Meds: No Currently Unemployed: No Education: High School Diploma/GED Difficulty w/ Childcare or Family Care: No Living arrangements: with family Additional living arrangements comments: Lives with mother in [place]. Occupation/Education: unemployed Additional occupation/education comments: Disabled. Spiritual care concerns: No Meds Home Medications and Allergies Home Medications ?Medication ?Instructions ?Recorded ?Confirmed ?Type benztropine 2 mg tablet 2 mg PO BID PRN involuntary 04/18/22 01/31/25 History movement prazosin 5 mg capsule 10 mg PO HS 04/18/22 01/31/25 History chlorpromazine 100 mg tablet 100 mg PO BID 03/27/23 02/01/25 History gabapentin 300 mg capsule 600 mg PO TID 05/25/23 02/01/25 History [id number] 1 tablet PO Q8H PRN Headache 07/26/24 01/31/25 History 50 mg-325 mg-40 mg tablet benztropine 1 mg tablet 1 mg PO BID 01/31/25 01/31/25 History buspirone 30 mg tablet 30 mg PO BID 01/31/25 01/31/25 History ondansetron 4 mg disintegrating 4 mg translingual TID PRN nausea 01/31/25 01/31/25 History tablet and vomiting sertraline 100 mg tablet 200 mg PO DAILY 01/31/25 02/01/25 History Allergies Allergy/AdvReac Type Severity Reaction Status Date / Time grass pollen Allergy Intermediate Hives Verified 05/15/25 15:01 amoxicillin (From Augmentin) Allergy Hives Verified 05/15/25 15:01 asenapine (From Saphris) Allergy Hives Verified 05/15/25 15:01 bacitracin (From Neosporin Allergy Rash Verified 05/15/25 15:01 ([id number])) clavulanic acid (From Allergy Hives Verified 05/15/25 15:01 Augmentin) erythromycin base Allergy Hives Verified 05/15/25 15:01 latex Allergy Rash Verified 05/15/25 15:01 neomycin (From Neosporin Allergy Rash Verified 05/15/25 15:01 ([id number])) polymyxin B (From Neosporin Allergy Rash Verified 05/15/25 15:01 ([id number])) risperidone (From Risperdal) Allergy Hives Verified 05/15/25 15:01 tramadol (From Ultram) Allergy Rash Verified 05/15/25 15:01 ciprofloxacin AdvReac Vomiting Verified 05/15/25 15:01 ibuprofen AdvReac Vomiting Verified 05/15/25 15:01 Steriod AdvReac Agitated Uncoded 05/15/25 15:01 Vital Signs Vital Signs - 24 hr 05/15/25 14:53 05/15/25 17:10 05/15/25 17:10 Temperature 36.4 C Pulse Rate 98 105 H Respiratory Rate 19 17 Blood Pressure 118/76 130/82 Pulse Oximetry 96 95 94 Oxygen Delivery Room Air Room Air Fraction of Inspired Oxygen 05/15/25 17:11 05/15/25 18:00 05/15/25 18:00 Temperature 36.6 C Pulse Rate 92 92 Respiratory Rate 21 H 16 Blood Pressure 122/76 Pulse Oximetry 94 Oxygen Delivery Fraction of Inspired Oxygen 05/15/25 20:00 05/15/25 20:00 05/15/25 20:30 Temperature 37.0 C Pulse Rate 83 84 Respiratory Rate 12 Blood Pressure 118/80 Pulse Oximetry 97 Oxygen Delivery Room Air Fraction of Inspired Oxygen 05/15/25 20:37 05/15/25 22:00 05/15/25 22:00 Temperature 38.2 C H Pulse Rate 87 108 H 107 H Respiratory Rate 16 15 Blood Pressure 112/87 Pulse Oximetry 97 98 Oxygen Delivery Room Air Fraction of Inspired Oxygen 21 05/16/25 00:00 05/16/25 00:00 05/16/25 00:20 Temperature 37.5 C Pulse Rate 103 H 104 H Respiratory Rate 20 Blood Pressure 118/71 Pulse Oximetry 94 Oxygen Delivery Room Air Fraction of Inspired Oxygen 05/16/25 02:00 05/16/25 02:00 05/16/25 04:00 Temperature 37.3 C Pulse Rate 88 102 H 97 Respiratory Rate 12 32 H Blood Pressure 118/64 105/81 Pulse Oximetry 97 97 Oxygen Delivery Fraction of Inspired Oxygen 05/16/25 04:00 05/16/25 04:35 05/16/25 06:00 Temperature Pulse Rate 92 92 Respiratory Rate Blood Pressure Pulse Oximetry Oxygen Delivery Room Air Fraction of Inspired Oxygen 05/16/25 06:00 05/16/25 07:25 05/16/25 07:36 Temperature 37.4 C 37.1 C Pulse Rate 86 104 H Respiratory Rate 27 H 22 H Blood Pressure 109/67 109/67 Pulse Oximetry 97 98 Oxygen Delivery Room Air Fraction of Inspired Oxygen Exam Narrative: General: Pt is awake confused and agitated, physically wrist restrained Lungs/Chest: Trachea central Clear BS B/L, No crackles or wheezing. Cardiac: RRR. Normal S1 S2. No murmurs Circulation: Pedal pulses are intact and symmetrical. Abdomen: Normal bowel sounds. Obese. Soft. NT. ND. Extremities: No clubbing, cyanosis or edema. Warm : Rich in place Neurologic: Patient moves all 4 extremities and Follows commands. PERRL she is awake and answer some questions although history is unreliable. She does not answer orientation questions she was able to tell me her mother's name, she continues to try to get out of bed or pull on lines and tubes Skin: No Rash HEENT: Oral mucosa and tongue is dry Results Labs 05/16/25 03:52 05/16/25 03:52 Labs: Short CBC 05/15/25 05/16/25 Range/Units 15:43 03:52 WBC 13.1 H 12.7 H (4.5-10.0) K/mm3 Hgb 14.1 12.9 (12.0-15.0) g/dL Hct 42.1 38.8 (37.0-47.0) % Plt Count 341 301 (150-375) k/mm3 BMP 05/15/25 05/16/25 15:43 03:52 Sodium 140 141 Potassium 3.3 L 3.2 L Chloride 107 114 H Carbon Dioxide 21 L 19 L BUN 11 D 5 L D Creatinine 0.66 L 0.46 L Glucose 182 H 109 Calcium 9.2 8.6 Cardiac Enzymes 05/15/25 Range/Units 15:43 Total Creatine Kinase 88 (30-135) U/L Liver Function 05/15/25 Range/Units 15:43 Total Bilirubin 0.5 (0.2-1.3) mg/dL AST 32 (14-36) U/L ALT 25 (6-35) U/L Alkaline Phosphatase 98 (38-126) U/L Albumin 4.3 (3.5-5.1) g/dL Urine 05/15/25 Range/Units 15:43 Urine Color Yellow (Yellow) Urine Appearance Clear (Clear) Urine pH 5.5 (5.0-9.0) Ur Specific [place] 1.016 (1.001-1.035) Urine Protein Trace (Negative) mg/dL Urine Glucose (UA) Negative (Negative) mg/dL Quality VTE Prophylaxis VTE prophylaxis: pharmacologic ordered Hospitalist MIPS Advance Care Plan I have confirmed that the patient's Advanced Care Plan is present, code status is documented, or surrogate decision maker is listed in patient medical record.: Yes Medication Reconciliation I have utilized all available resources to obtain, update and review the patients current medications (includes all prescriptions, OTC, herbals, cannabis, and nutritional supplements).: Yes
[2025-05-16] MEDS: KCL 20 MEQ/0.45% NS 1,000 ML 100 ML IV CONT ×2 (10:13→20:52)
[2025-05-16] MEDS: diazePAM INJ (*CRX) 10 MG/2 ML SYRINGE 5 MG IV PUSH ×3 (11:33→23:44)
[2025-05-16] MEDS: dexmedeTOMIDine 400 MCG/100 ML 400 MCG/100 ML BAG 9.75 MCG IV CONT (12:38)
[2025-05-16 12:58] LABS: Acetaminophen < 10 ug/mL (10-30)
[2025-05-16 13:01] LABS: Alanine Aminotransferase 27 U/L (6-35); Albumin Level 3.8 g/dL (3.5-5.1); Alkaline Phosphatase 77 U/L (38-126); Anion Gap 8 mmol/L (4-12); Aspartate Amino Transferase 63 U/L (14-36); Bilirubin,Total 0.8 mg/dL (0.2-1.3); Blood Urea Nitrogen 3 mg/dL (7-17); Calcium 8.7 mg/dL (8.4-10.2); Carbon Dioxide 20 mmol/L (22-30); Chloride 113 mmol/L (98-107); Estimated CRCL calculation 112 ml/min; Estimated Glomerular Filt Rate > 60; Glucose 108 mg/dL (65-110); Potassium 3.3 mmol/L (3.4-5.0); Sodium 141 mmol/L (137-145); Total Protein 7.0 g/dL (6.3-8.2)
[2025-05-16] MEDS: dexmedeTOMIDine 400 MCG/100 ML 400 MCG/100 ML BAG 13.65 MCG IV CONT (17:56)
[2025-05-17] VITALS (23 sets, daily range): BP systolic 111–145; BP diastolic 56–98; PULSE 41–102; RESP 16–26; TEMP 36.1–38.3; O2SAT 95–100
[2025-05-17] MEDS: diazePAM INJ (*CRX) 10 MG/2 ML SYRINGE 5 MG IV PUSH (03:40)
[2025-05-17 03:58] LABS: Hematocrit 39.3 % (37.0-47.0); Hemoglobin 12.7 g/dL (12.0-15.0); Mean Corpuscular HGB Conc 32.3 g/dl (32-36); Mean Corpuscular Hemoglobin 35.2 pg (26-34); Mean Corpuscular Volume 108.9 fl (80-100); Platelet Count Result 246 k/mm3 (150-375); Red Blood Count 3.61 M/mm3 (4.2-5.4); White Blood Count 8.7 K/mm3 (4.5-10.0)
[2025-05-17 04:22] LABS: Alanine Aminotransferase 27 U/L (6-35); Albumin Level 3.6 g/dL (3.5-5.1); Alkaline Phosphatase 67 U/L (38-126); Anion Gap 7 mmol/L (4-12); Aspartate Amino Transferase 64 U/L (14-36); Bilirubin,Total 1.4 mg/dL (0.2-1.3); Blood Urea Nitrogen 7 mg/dL (7-17); Calcium 8.7 mg/dL (8.4-10.2); Carbon Dioxide 18 mmol/L (22-30); Chloride 114 mmol/L (98-107); Estimated CRCL calculation 121 ml/min; Estimated Glomerular Filt Rate > 60; Glucose 94 mg/dL (65-110); Magnesium 2.1 mg/dL (1.6-2.3); Potassium 4.0 mmol/L (3.4-5.0); Sodium 139 mmol/L (137-145); Total Protein 6.8 g/dL (6.3-8.2)
[2025-05-17] MEDS: KCL 20 MEQ/0.45% NS 1,000 ML 100 ML IV CONT (06:26)
[2025-05-17] MEDS: dexmedeTOMIDine 400 MCG/100 ML 400 MCG/100 ML BAG IV CONT (06:27)
--- NOTE | 2025-05-17 08:29 | P.PNINT_ITS ---
Progress Note: A&P Assessment and Plan (1) Acetaminophen overdose: Code(s): T39.1X1A - Poisoning by 4-Aminophenol derivatives, accidental (unintentional), initial encounter Status: Acute Assessment and Plan: Tylenol or does and part of polysubstance overdose One-to-one sitter and suicide precaution Tylenol level was 78 on presentation with normal liver enzymes N-acetylcysteine infusion was started after consultation with poison Control and will be continued Repeat labs were done yesterday and showed Tylenol level has cleared with normal LFTs. After consultation with poison Control NAC infusion was discontinued after initial protocol (2) Polysubstance overdose: Code(s): T50.901A - Poisoning by unspecified drugs, medicaments and biological substa nces, accidental (unintentional), initial encounter Status: Acute Assessment and Plan: Patient likely took excessive amount of [place]. Opioid effect has likely worn off as patient is awake agitated and has no evidence of respiratory insufficiency Monitor Consult Psychiatry (3) Schizoaffective disorder: Qualifiers: Schizoaffective disorder type: bipolar Qualified Code(s): F25.0 - Schizoaffective disorder, bipolar type Code(s): F25.9 - Schizoaffective disorder, unspecified Status: Acute Assessment and Plan: Resume psychiatry meds Consult psychiatry (4) Poly-drug misuser: Code(s): F19.90 - Other psychoactive substance use, unspecified, uncomplicated Status: Acute Assessment and Plan: Patient will be counseled once her mental status improved (5) Encephalopathy: Code(s): G93.40 - Encephalopathy, unspecified Status: Resolved Assessment and Plan: Toxic encephalopathy, head CT negative Ammonia normal Off Precedex infusion Will release restrained Resume her psych meds (6) Electrolyte abnormality: Code(s): E87.8 - Other disorders of electrolyte and fluid balance, not elsewhere classified Status: Resolved Assessment and Plan: Potassium improved after placement Discontinue IV fluid Plan DVT prophylaxis -Lovenox Nutrition -clear liquid diet advance as tolerated Code Status - Full Code Total Critical Care Time - 30 minutes Due to a high probability of clinically significant, life threatening deterioration, the patient required my highest level of preparedness to intervene emergently and I personally spent this critical care time directly and personally managing the patient. This critical care time included obtaining a history; examining the patient; pulse oximetry; ordering and review of studies; arranging urgent treatment with development of a management plan; evaluation of patient's response to treatment; frequent reassessment; and discussions with other providers. It was exclusive of separately billable procedures and treating other patients and teaching time. Please see Assessment and Plan section and the rest of the note for further information on patient assessment and treatment Subjective Date/time seen: 05/17/25 Patient weaned off of Precedex infusion this morning. She appears much more awake and calm. She is partially oriented. She complains of dry mouth and being thirsty. She also is complaining of dry lips. She denies any pain or shortness of breath. Review of system was positive for constipation. Patient denies fever, chest pain, shortness of breath, cough, nausea vomiting, abdominal pain,, diarrhea, headache. All other systems were reviewed and were negative Afebrile, on IV fluids, good urine output, other vital signs stable Review of Systems Review of Systems: All systems reviewed & are unremarkable except as noted in HPI and below (HPI) Exam Narrative: General: Pt is awake calm and not in any distress physically wrist restrained Lungs/Chest: Trachea central Clear BS B/L, No crackles or wheezing. Cardiac: RRR. Normal S1 S2. No murmurs Circulation: Pedal pulses are intact and symmetrical. Abdomen: Normal bowel sounds. Obese. Soft. NT. ND. Extremities: No clubbing, cyanosis or edema. Warm : Rich in place Neurologic: Patient is AO x2 does not know the year,, awake alert follows commands with all 4 extremities Skin: No Rash HEENT: Oral mucosa and tongue is dry Objective Data Vital Signs Vital Signs: Vital Signs - 24 hr 05/16/25 10:00 05/16/25 10:05/16/25 11:55 Temperature 37.7 C H Pulse Rate 93 93 Respiratory Rate 20 Blood Pressure 128/92 H Pulse Oximetry 95 Oxygen Delivery Room Air Fraction of Inspired Oxygen 05/16/25 11:59 05/16/25 12:00 05/16/25 12:38 Temperature 37.7 C H Pulse Rate 101 H 110 H 98 Respiratory Rate 29 H 19 Blood Pressure Pulse Oximetry 95 Oxygen Delivery Fraction of Inspired Oxygen 05/16/25 12:45 05/16/25 13:00 05/16/25 13:10 Temperature 37.8 C H Pulse Rate 102 H 95 Respiratory Rate 38 H 22 H Blood Pressure 129/70 119/91 H Pulse Oximetry 94 Oxygen Delivery Fraction of Inspired Oxygen 05/16/25 13:40 05/16/25 14:00 05/16/25 14:00 Temperature 37.7 C H Pulse Rate 91 79 79 Respiratory Rate 27 H 23 H Blood Pressure 91/77 L Pulse Oximetry 96 Oxygen Delivery Fraction of Inspired Oxygen 05/16/25 14:10 05/16/25 15:00 05/16/25 15:15 Temperature 37.2 C Pulse Rate 87 62 55 L Respiratory Rate 24 H 22 H 18 Blood Pressure 111/67 Pulse Oximetry 90 Oxygen Delivery Fraction of Inspired Oxygen 05/16/25 15:45 05/16/25 16:00 05/16/25 16:00 Temperature Pulse Rate 52 L 52 L Respiratory Rate 20 19 Blood Pressure Pulse Oximetry Oxygen Delivery Room Air Fraction of Inspired Oxygen 05/16/25 16:00 05/16/25 16:00 05/16/25 17:00 Temperature 36.9 C 36.7 C Pulse Rate 52 L 54 L 60 Respiratory Rate 19 24 H Blood Pressure 102/57 L 111/63 Pulse Oximetry 96 94 Oxygen Delivery Fraction of Inspired Oxygen 05/16/25 17:15 05/16/25 17:45 05/16/25 17:56 Temperature Pulse Rate 49 L 49 L 54 L Respiratory Rate 19 20 23 H Blood Pressure Pulse Oximetry Oxygen Delivery Fraction of Inspired Oxygen 05/16/25 17:56 05/16/25 18:00 05/16/25 18:00 Temperature Pulse Rate 54 L 48 L 50 L Respiratory Rate 23 H 20 Blood Pressure Pulse Oximetry Oxygen Delivery Fraction of Inspired Oxygen 05/16/25 18:00 05/16/25 18:15 05/16/25 18:45 Temperature 36.5 C Pulse Rate 50 L 48 L 45 L Respiratory Rate 20 20 18 Blood Pressure 97/57 L Pulse Oximetry 95 Oxygen Delivery Fraction of Inspired Oxygen 05/16/25 19:00 05/16/25 20:00 05/16/25 20:00 Temperature 36.4 C 36.4 C Pulse Rate 53 L 55 L 55 L Respiratory Rate 19 18 18 Blood Pressure 106/55 L 110/77 Pulse Oximetry 94 94 Oxygen Delivery Fraction of Inspired Oxygen 05/16/25 20:00 05/16/25 20:28 05/16/25 20:30 Temperature Pulse Rate 52 L Respiratory Rate Blood Pressure Pulse Oximetry 92 Oxygen Delivery Room Air Room Air Fraction of Inspired Oxygen 21 05/16/25 21:00 05/16/25 21:28 05/16/25 22:00 Temperature 36.3 C L 36.2 C L Pulse Rate 47 L 45 L 100 Respiratory Rate 23 H 19 32 H Blood Pressure 111/64 135/96 H Pulse Oximetry 94 93 Oxygen Delivery Fraction of Inspired Oxygen 05/16/25 22:00 05/16/25 22:00 05/16/25 22:02 Temperature Pulse Rate 48 L 48 L 48 L Respiratory Rate 22 H 22 H Blood Pressure Pulse Oximetry Oxygen Delivery Fraction of Inspired Oxygen 05/16/25 22:27 05/16/25 23:04 05/16/25 23:45 Temperature 36.1 C L Pulse Rate 41 L 58 L 63 Respiratory Rate 22 H 21 H 24 H Blood Pressure 105/86 Pulse Oximetry 92 97 Oxygen Delivery Fraction of Inspired Oxygen 05/16/25 23:45 05/17/25 00:00 05/17/25 00:00 Temperature 36.3 C L Pulse Rate 47 L 47 L Respiratory Rate 25 H 25 H Blood Pressure 113/65 Pulse Oximetry 95 Oxygen Delivery Room Air Fraction of Inspired Oxygen 05/17/25 00:00 05/17/25 01:00 05/17/25 01:00 Temperature 36.1 C L Pulse Rate 44 L 41 L 41 L Respiratory Rate 21 H 21 H Blood Pressure 115/69 Pulse Oximetry 96 Oxygen Delivery Fraction of Inspired Oxygen 05/17/25 02:00 05/17/25 02:00 05/17/25 02:00 Temperature 36.2 C L Pulse Rate 54 L 54 L 54 L Respiratory Rate 23 H 23 H Blood Pressure 132/70 Pulse Oximetry 97 Oxygen Delivery Fraction of Inspired Oxygen 05/17/25 03:00 05/17/25 03:03 05/17/25 03:45 Temperature 36.6 C Pulse Rate 58 L 58 L 45 L Respiratory Rate 21 H 21 H 22 H Blood Pressure 113/73 Pulse Oximetry 98 Oxygen Delivery Fraction of Inspired Oxygen 05/17/25 04:00 05/17/25 04:00 05/17/25 04:00 Temperature 36.8 C Pulse Rate 43 L 43 L 42 L Respiratory Rate 20 20 Blood Pressure 112/59 L Pulse Oximetry 96 Oxygen Delivery Fraction of Inspired Oxygen 05/17/25 04:15 05/17/25 04:15 05/17/25 05:00 Temperature 36.5 C Pulse Rate 45 L 48 L Respiratory Rate 23 H 21 H Blood Pressure 132/58 L Pulse Oximetry 95 Oxygen Delivery Room Air Fraction of Inspired Oxygen 05/17/25 06:00 05/17/25 06:00 05/17/25 06:00 Temperature 36.8 C Pulse Rate 71 69 69 Respiratory Rate 21 H 21 H Blood Pressure 122/76 Pulse Oximetry 97 Oxygen Delivery Fraction of Inspired Oxygen 05/17/25 06:27 05/17/25 06:27 05/17/25 07:00 Temperature 36.9 C Pulse Rate 69 69 72 Respiratory Rate 24 H 24 H 22 H Blood Pressure 120/73 Pulse Oximetry 96 Oxygen Delivery Fraction of Inspired Oxygen 05/17/25 07:38 05/17/25 08:00 Temperature 36.9 C Pulse Rate 66 66 Respiratory Rate 24 H 26 H Blood Pressure 113/56 L Pulse Oximetry 96 Oxygen Delivery Fraction of Inspired Oxygen Intake/Output Intake/Output: Intake & Output 05/14/25 05/15/25 05/16/25 05/17/25 23:59 23:59 23:59 23:59 Intake Total 2776.75 4850.2 1102.4 Output Total 1600 600 Balance 2776.75 3250.2 502.4 Meds/Results Medications: Active Medications Generic Name Dose Route Start Last Admin Trade Name Freq PRN Reason Stop Dose Admin Benztropine Mesylate 1 mg 05/17/25 09:00 Benztropine Mesylate 1 Mg Tablet PO Q12HR BENEDICTO Bisacodyl 5 mg 05/17/25 07:50 Bisacodyl 5 Mg Tablet Ec PO QAM PRN Constipation Buspirone HCl 30 mg 05/17/25 09:00 Buspirone Hcl 10 Mg Tablet PO Q12HR BENEDICTO Chlorpromazine HCl 100 mg 05/17/25 09:00 Chlorpromazine Hcl 25 Mg Tablet PO Q12HR BENEDICTO Diazepam 5 mg 05/16/25 11:25 05/17/25 03:40 Diazepam Inj (*Crx) 10 Mg/2 Ml Syringe IV PUSH 5 mg Q4H PRN Administration Agitation Docusate Sodium 100 mg 05/17/25 09:00 Docusate Sodium 100 Mg Capsule PO Q12HR BENEDICTO Enoxaparin Sodium 40 mg 05/16/25 09:00 05/16/25 09:03 Enoxaparin 40 Mg/0.4 Ml Syringe SUB-Q 40 mg DAILY [facility] Administration Gabapentin 600 mg 05/17/25 09:00 Gabapentin 300 Mg Capsule PO TID [facility] Dexmedetomidine HCl 400 mcg in 100 mls @ 0 mls/hr 05/16/25 12:30 05/17/25 07:38 Precedex 400 Mcg/100 Ml IV CONT 0 mcg/kg/hr On Hold: 05/17/25 07:52 .Q0M BENEDICTO 0 mls/hr Protocol Titration Naloxone HCl 0.1 mg 05/15/25 20:02 Naloxone Hcl 0.4 Mg/Ml Vial IV PUSH Q5MIN PRN Opiate Reversal Ondansetron HCl 4 mg 05/15/25 16:40 Ondansetron Inj 4 Mg/2 Ml Vial IV PUSH Q4H PRN Nausea Polyethylene Glycol 17 gm 05/17/25 09:00 Polyethylene Glycol 3350 17 Gm Powd.Pack PO QAM [facility] Sertraline HCl 200 mg 05/17/25 09:00 Sertraline Hcl 50 Mg Tablet PO DAILY [facility] Trazodone HCl 50 mg 05/17/25 21:00 Trazodone Hcl 50 Mg Tablet PO HS [facility] Radiology Results: ITS Impressions Head CT 05/15/25 16:46 IMPRESSION: 1. Normal brain. No acute intracranial process. Chest X-Ray 05/15/25 16:48 IMPRESSION: 1. No acute cardiopulmonary disease. Labs Labs: Laboratory Results - last 24 hr 05/16/25 05/17/25 12:41 03:50 WBC 8.7 RBC 3.61 L Hgb 12.7 Hct 39.3 MCV 108.9 H MCH 35.2 H MCHC 32.3 RDW 12.7 Plt Count 246 MPV 9.5 Sodium 141 139 Potassium 3.3 L 4.0 Chloride 113 H 114 H Carbon Dioxide 20 L 18 L Anion Gap 8 7 BUN 3 L 7 Creatinine 0.48 L 0.44 L Estim Creat Clear Calc 112 121 Estimated GFR > 60 > 60 Glucose 108 94 Calcium 8.7 8.7 Magnesium 2.1 Total Bilirubin 0.8 1.4 H AST 63 H 64 H ALT 27 27 Alkaline Phosphatase 77 67 Total Protein 7.0 6.8 Albumin 3.8 3.6 Acetaminophen < 10 L Quality VTE Prophylaxis VTE prophylaxis: pharmacologic ordered
[2025-05-17] MEDS: ENOXAPARIN 40 MG/0.4 ML SYRINGE SUB-Q (08:33)
[2025-05-17] MEDS: DOCUSATE SODIUM 100 MG CAPSULE PO ×2 (08:34→21:01)
[2025-05-17] MEDS: BENZTROPINE MESYLATE 1 MG TABLET PO ×2 (08:34→21:02)
[2025-05-17] MEDS: SERTRALINE HCL 50 MG TABLET 200 MG PO (08:34)
[2025-05-17] MEDS: GABAPENTIN 300 MG CAPSULE 600 MG PO (08:34)
--- NOTE | 2025-05-17 10:04 | WPDCNPSYCH ---
Assessment and Plan Assessment and plan (1) Suicide attempt: Code(s): T14.91XA - Suicide attempt, initial encounter Status: Acute (2) Opioid use disorder, severe, dependence: Onset Date: Unknown Code(s): F11.20 - Opioid dependence, uncomplicated Status: Acute (3) Bipolar mood disorder: Code(s): F31.9 - Bipolar disorder, unspecified Status: Acute Assessment and Plan: 1. Drug Overdose - Patient found by mother after taking 90 Fioricet tablets in suicide attempt. - History of multiple overdose attempts with narcotic pain medications and Tylenol. - Family history of suicide attempts (brother). - Plan: a. Admit to inpatient psychiatric care. b. Collaborate with Crisis Team for inpatient psychiatric treatment. c. Monitor for signs of Fioricet toxicity and manage accordingly. d. Assess for ongoing suicidal ideation and implement appropriate safety measures. 2. bipolar Disorder - Longstanding diagnosis with onset in teens. - Manic episodes typically last about a week. - Current symptoms include sadness indicating possible depressive phase. - Plan: a. Continue Thorazine 100 mg twice daily. b. Continue BuSpar 30 mg twice daily. c. Continue Zoloft 200 mg daily. d. Continue Cogentin 1 mg twice daily. e. Reassess medication efficacy and adjust as needed during inpatient stay. f. Provide psychoeducation on medication adherence and importance of consistent treatment. 3. Polysubstance Use Disorder - History of substance abuse including marijuana, alcohol, meth, acid, and mushrooms. - Past participation in alcohol rehabilitation. - Current overdose attempt involv ed Fioricet indicating ongoing substance misuse. - Plan: a. Initiate substance abuse treatment as part of inpatient psychiatric care. b. Consider referral to specialized rehabilitation program for polysubstance use disorder. c. Provide education on risks of substance abuse and interaction with psychiatric medications. d. Initiate WILDER consult and begin treatment planning e. Consider referral to long-term residential rehab upon discharge f. once stabilized recommend initiation Psychotherapy g. collaborate with PCP that is prescribing medication. 4. Chronic Pain - Reports head and throat pain contributing to recent overdose attempt. - History of using narcotic pain medications. - Plan: a. Evaluate current pain levels and develop pain management strategy without narcotics. b. Consider non-pharmacological pain management techniques. c. Consult with roof painter if needed. 5. Risk Assessment and Safety Planning - High risk factors: history of suicidal ideation, prior suicide attempts, active substance abuse, family history of suicide attempts, multiple psychiatric hospitalizations. - Protective factors: lives with mother, agreed to inpatient hospitalization, acknowledges need for substance abuse treatment, engaged in psychiatric medication regimen. - Plan: a. Continue inpatient psychiatric hospitalization. b. Maintain collaboration with Crisis Team for ongoing psychiatric care. c. Monitor safety factors and protective elements throughout treatment. d. patient to sign a release of information to speak with PCP about abuse of prescription medications. 6. Insomnia - Assessment: Patient reports difficulty sleeping and has been self-medicating with [id number] medications. Admits to taking 7 Benadryl tablets and 7 tylenol PM tablets per night to induce sleep a. Previous trials of prescription sleep aids including Seroquel resulted in significant weight gain and trazodone was discontinued for unknown reason. - Plan: a. Discontinue inappropriate use of [id number] sleep aids b. Consider trial of trazodone 50 mg HS for insomnia c. Educate on sleep hygiene practices HPI Data of Consult Date/Time: 05/17/25 10:04 Requesting Physician: Josiah Burch MD Primary Care Provider: Neil BarbourMD Consult Narrative Narrative: Mahnaz Oseguera is a 59-year-old female with a longstanding history of Bipolar Disorder and polysubstance abuse, presenting to the hospital after a reported overdose on 90 Fioricet tablets. She was found on the floor by her mother, with a pill bottle nearby, and brought in for altered mental status. During evaluation, the patient reported taking the medication intentionally to harm herself and stop the pain, citing both physical pain (head and throat) and emotional distress, stating, ?I?m sad.? She has had multiple prior hospitalizations for overdoses involving narcotic pain medications and acetaminophen-containing products. Mahnaz has a family history of suicide attempts, which further elevates her psychiatric risk. She endorsed persistent mood symptoms and a longstanding history of suicidal behavior, consistent with her recurrent hospitalizations. The patient?s psychiatric history is notable for Bipolar Disorder, first diagnosed in adolescence, with manic episodes typically lasting around one week. Past symptoms during manic episodes reportedly include elevated mood, decreased need for sleep, pressured speech, impulsivity, and erratic behavior. She also has a significant substance use history, including use of: Marijuana Alcohol Lysergic acid diethylamide (LSD) Methamphetamine Psilocybin mushrooms She has previously participated in alcohol rehabilitation, but reports continued struggles with substance use, especially with prescription medications. At the time of evaluation, Mahnaz acknowledged the need for psychiatric hospitalization and is willing to engage in inpatient treatment, including care for substance use. Review of Systems Constitutional: Comments: complains of pain in her head and throat Psychiatric: Psychiatric: Reports anxiety, Reports depression, Reports difficulty concentrating, Reports irritability and Reports paranoia [facility] Past Medical History Medical History (Updated 05/17/25 @ 13:37 by Jax Patel, SHACKLER) Bipolar mood disorder Methamphetamine use GERD (gastroesophageal reflux disease) Major depression with psychotic features Carpal tunnel syndrome of right wrist Carcinoma of right ureter SVT (supraventricular tachycardia) Hepatitis C Alcohol abuse Schizoaffective disorder [place] toxicity Due to overdose/suicide attempt Requiring temporary dialysis Tobacco dependence Chronic obstructive pulmonary disease Distal radial fracture December 2022 Ankle fracture, lateral malleolus, closed December 2022 Seizure Migraine Anxiety Suicide attempt Multiple hospitalizations for suicide attempt with history of cutting Surgical History Surgical History History of right salpingo-oophorectomy Due to ectopic Status post lumbar discectomy (~1999) L5-S1 Status post open reduction with internal fixation of fracture Cervical spine fracture History of ureterostomy History of kidney surgery H/O dilation and curettage H/O tubal ligation History of tonsillectomy H/O foot surgery 2021 X2 H/O: hysterectomy 2000 hysterectomy with left oophorectomy Family History Family History Father Alcoholism Grandparent Diabetes mellitus Hypertension Heart disease Mother Kidney disease Grandparent Alcoholism Social History Social History Social History: Surrogate medical decision maker: Landy Silva, mother. Code status: Full code. Smoking packs per day: 1.5 Smoking cigarettes per day: 30.0 Years smoked: 45 Smoking pack-years: 67.50 Smoking status: Current every day smoker Tobacco type: cigarettes Second hand tobacco smoke exposure: No Alcohol intake: unknown Substance use: current Substance use type: painkillers and prescription drug Other substance usage details: Fioricet and [place] Last use: 01/30/2025 Lack of Transportation: No Lack of Food: Never True Current Housing: I Have Housing Concerned About Future Housing: No Difficulty Paying Gas/Electric Bills: No Difficulty Paying for Meds: No Currently Unemployed: No Education: High School Diploma/GED Difficulty w/ Childcare or Family Care: No Living arrangements: with family Additional living arrangements comments: Lives with mother in [place]. Occupation/Education: unemployed Additional occupation/education comments: Disabled. Spiritual care concerns: No Meds Home Medications and Allergies Home Medications ?Medication ?Instructions ?Recorded ?Confirmed ?Type benztropine 2 mg tablet 2 mg PO BID PRN involuntary 04/18/22 05/16/25 History movement prazosin 5 mg capsule 10 mg PO HS 04/18/22 05/16/25 History chlorpromazine 100 mg tablet 100 mg PO Q12H 03/27/23 05/16/25 History gabapentin 300 mg capsule 600 mg PO TID 05/25/23 05/16/25 History fdyulobezy-[id number] 1 tablet PO Q8H PRN Headache 07/26/24 05/16/25 History 50 mg-325 mg-40 mg tablet benztropine 1 mg tablet 1 mg PO Q12H 01/31/25 05/16/25 History buspirone 30 mg tablet 30 mg PO Q12H 01/31/25 05/16/25 History ondansetron 4 mg disintegrating 4 mg translingual TID PRN nausea 01/31/25 05/16/25 History tablet and vomiting sertraline 100 mg tablet 200 mg PO DAILY 01/31/25 05/16/25 History cyclobenzaprine 10 mg tablet 10 mg PO Q12H 05/16/25 05/16/25 History hydrocodone 5 mg-acetaminophen 325 1 tablet PO Q8H 05/16/25 05/16/25 History mg tablet trazodone 50 mg tablet 50 mg PO HS 05/16/25 05/16/25 History Allergies Allergy/AdvReac Type Severity Reaction Status Date / Time grass pollen Allergy Intermediate Hives Verified 05/16/25 12:53 amoxicillin (From Augmentin) Allergy Hives Verified 05/16/25 12:53 asenapine (From Saphris) Allergy Hives Verified 05/16/25 12:53 bacitracin (From Neosporin Allergy Rash Verified 05/16/25 12:53 ([id number])) clavulanic acid (From Allergy Hives Verified 05/16/25 12:53 Augmentin) erythromycin base Allergy Hives Verified 05/16/25 12:53 latex Allergy Rash Verified 05/16/25 12:53 neomycin (From Neosporin Allergy Rash Verified 05/16/25 12:53 ([id number])) polymyxin B (From Neosporin Allergy Rash Verified 05/16/25 12:53 ([id number])) risperidone (From Risperdal) Allergy Hives Verified 05/16/25 12:53 tramadol (From Ultram) Allergy Rash Verified 05/16/25 12:53 haloperidol (From Haldol) AdvReac Severe Swelling Verified 05/16/25 12:53 of Lip/Tongue/Throat ciprofloxacin AdvReac Vomiting Verified 05/16/25 12:53 ibuprofen AdvReac Vomiting Verified 05/16/25 12:53 Steriod AdvReac Agitated Uncoded 05/16/25 12:53 Vital Signs Vital Signs - 24 hr 05/16/25 11:55 05/16/25 11:59 05/16/25 12:00 Temperature 99.9 F H Pulse Rate 101 H 110 H Respiratory Rate 29 H Blood Pressure Pulse Oximetry 95 Oxygen Delivery Room Air Fraction of Inspired Oxygen 05/16/25 12:38 05/16/25 12:45 05/16/25 13:00 Temperature 100.1 F H Pulse Rate 98 102 H Respiratory Rate 19 38 H Blood Pressure 129/70 119/91 H Pulse Oximetry 94 Oxygen Delivery Fraction of Inspired Oxygen 05/16/25 13:10 05/16/25 13:40 05/16/25 14:00 Temperature Pulse Rate 95 91 79 Respiratory Rate 22 H 27 H Blood Pressure Pulse Oximetry Oxygen Delivery Fraction of Inspired Oxygen 05/16/25 14:00 05/16/25 14:10 05/16/25 15:00 Temperature 99.8 F H 98.9 F Pulse Rate 79 87 62 Respiratory Rate 23 H 24 H 22 H Blood Pressure 91/77 L 111/67 Pulse Oximetry 96 90 Oxygen Delivery Fraction of Inspired Oxygen 05/16/25 15:15 05/16/25 15:45 05/16/25 16:00 Temperature Pulse Rate 55 L 52 L 52 L Respiratory Rate 18 20 19 Blood Pressure Pulse Oximetry Oxygen Delivery Fraction of Inspired Oxygen 05/16/25 16:00 05/16/25 16:00 05/16/25 16:00 Temperature 98.4 F Pulse Rate 52 L 54 L Respiratory Rate 19 Blood Pressure 102/57 L Pulse Oximetry 96 Oxygen Delivery Room Air Fraction of Inspired Oxygen 05/16/25 17:00 05/16/25 17:15 05/16/25 17:45 Temperature 98.1 F Pulse Rate 60 49 L 49 L Respiratory Rate 24 H 19 20 Blood Pressure 111/63 Pulse Oximetry 94 Oxygen Delivery Fraction of Inspired Oxygen 05/16/25 17:56 05/16/25 17:56 05/16/25 18:00 Temperature Pulse Rate 54 L 54 L 48 L Respiratory Rate 23 H 23 H 20 Blood Pressure Pulse Oximetry Oxygen Delivery Fraction of Inspired Oxygen 05/16/25 18:00 05/16/25 18:00 05/16/25 18:15 Temperature 97.7 F Pulse Rate 50 L 50 L 48 L Respiratory Rate 20 20 Blood Pressure 97/57 L Pulse Oximetry 95 Oxygen Delivery Fraction of Inspired Oxygen 05/16/25 18:45 05/16/25 19:00 05/16/25 20:00 Temperature 97.6 F 97.6 F Pulse Rate 45 L 53 L 55 L Respiratory Rate 18 19 18 Blood Pressure 106/55 L 110/77 Pulse Oximetry 94 94 Oxygen Delivery Fraction of Inspired Oxygen 05/16/25 20:00 05/16/25 20:00 05/16/25 20:28 Temperature Pulse Rate 55 L 52 L Respiratory Rate 18 Blood Pressure Pulse Oximetry 92 Oxygen Delivery Room Air Fraction of Inspired Oxygen 21 05/16/25 20:30 05/16/25 21:00 05/16/25 21:28 Temperature 97.3 F L Pulse Rate 47 L 45 L Respiratory Rate 23 H 19 Blood Pressure 111/64 Pulse Oximetry 94 Oxygen Delivery Room Air Fraction of Inspired Oxygen 05/16/25 22:00 05/16/25 22:00 05/16/25 22:00 Temperature 97.2 F L Pulse Rate 100 48 L 48 L Respiratory Rate 32 H 22 H Blood Pressure 135/96 H Pulse Oximetry 93 Oxygen Delivery Fraction of Inspired Oxygen 05/16/25 22:02 05/16/25 22:27 05/16/25 23:04 Temperature 97 F L Pulse Rate 48 L 41 L 58 L Respiratory Rate 22 H 22 H 21 H Blood Pressure 105/86 Pulse Oximetry 92 Oxygen Delivery Fraction of Inspired Oxygen 05/16/25 23:45 05/16/25 23:45 05/17/25 00:00 Temperature 97.3 F L Pulse Rate 63 47 L Respiratory Rate 24 H 25 H Blood Pressure 113/65 Pulse Oximetry 97 95 Oxygen Delivery Room Air Fraction of Inspired Oxygen 05/17/25 00:00 05/17/25 00:00 05/17/25 01:00 Temperature Pulse Rate 47 L 44 L 41 L Respiratory Rate 25 H 21 H Blood Pressure Pulse Oximetry Oxygen Delivery Fraction of Inspired Oxygen 05/17/25 01:00 05/17/25 02:00 05/17/25 02:00 Temperature 97 F L 97.2 F L Pulse Rate 41 L 54 L 54 L Respiratory Rate 21 H 23 H Blood Pressure 115/69 132/70 Pulse Oximetry 96 97 Oxygen Delivery Fraction of Inspired Oxygen 05/17/25 02:00 05/17/25 03:00 05/17/25 03:03 Temperature 98 F Pulse Rate 54 L 58 L 58 L Respiratory Rate 23 H 21 H 21 H Blood Pressure 113/73 Pulse Oximetry 98 Oxygen Delivery Fraction of Inspired Oxygen 05/17/25 03:45 05/17/25 04:00 05/17/25 04:00 Temperature 98.2 F Pulse Rate 45 L 43 L 43 L Respiratory Rate 22 H 20 20 Blood Pressure 112/59 L Pulse Oximetry 96 Oxygen Delivery Fraction of Inspired Oxygen 05/17/25 04:00 05/17/25 04:15 05/17/25 04:15 Temperature Pulse Rate 42 L 45 L Respiratory Rate 23 H Blood Pressure Pulse Oximetry Oxygen Delivery Room Air Fraction of Inspired Oxygen 05/17/25 05:00 05/17/25 06:00 05/17/25 06:00 Temperature 97.7 F Pulse Rate 48 L 71 69 Respiratory Rate 21 H 21 H Blood Pressure 132/58 L Pulse Oximetry 95 Oxygen Delivery Fraction of Inspired Oxygen 05/17/25 06:00 05/17/25 06:27 05/17/25 06:27 Temperature 98.2 F Pulse Rate 69 69 69 Respiratory Rate 21 H 24 H 24 H Blood Pressure 122/76 Pulse Oximetry 97 Oxygen Delivery Fraction of Inspired Oxygen 05/17/25 07:00 05/17/25 07:38 05/17/25 08:00 Temperature 98.5 F 98.5 F Pulse Rate 72 66 66 Respiratory Rate 22 H 24 H 26 H Blood Pressure 120/73 113/56 L Pulse Oximetry 96 96 Oxygen Delivery Fraction of Inspired Oxygen 05/17/25 08:00 05/17/25 09:00 05/17/25 10:00 Temperature 98.8 F 98.8 F Pulse Rate 66 77 80 Respiratory Rate 26 H 22 H 16 Blood Pressure 122/68 111/68 Pulse Oximetry 96 100 97 Oxygen Delivery Room Air Fraction of Inspired Oxygen 21 Exam Narrative: Mental Status Examination: Patient appears distressed at times during the interview. Crying observed. Speech is tangential at times, difficulty staying on topic. Mood described as I'm so sad. Thought process is tangential, circumstantial at times. Denies current suicidal ideation. Expresses guilt over brother's suicide. Perceptions: Denies hallucinations. Cognition: Some memory impairment noted - difficulty recalling recent events and medication names. Insight: Limited insight into substance use disorder. Judgment: Poor judgment evidenced by repeated overdoses on prescribed medication. Const: General: awake Orientation/consciousness: oriented to person HENMT: Teeth and gingiva: other (missing teeth) Psych: Appearance: disheveled Speech and movement: Clear speech present and Psychomotor agitation in speech present Affect: Sad affect present and Irritable affect present Attitude: Guarded attititude/behavior present Thought process: Normal thought process present Thought content: Yes Normal thought content present Insight: Limited insight present (Psych) Judgement: Limited judgement present (Psych) Results Labs 05/17/25 03:50 05/17/25 03:50 Labs: Short CBC 05/17/25 Range/Units 03:50 WBC 8.7 (4.5-10.0) K/mm3 Hgb 12.7 (12.0-15.0) g/dL Hct 39.3 (37.0-47.0) % Plt Count 246 (150-375) k/mm3 BMP 05/16/25 05/17/25 12:41 03:50 Sodium 141 139 Potassium 3.3 L 4.0 Chloride 113 H 114 H Carbon Dioxide 20 L 18 L BUN 3 L 7 Creatinine 0.48 L 0.44 L Glucose 108 94 Calcium 8.7 8.7 Liver Function 05/16/25 05/17/25 Range/Units 12:41 03:50 Total Bilirubin 0.8 1.4 H (0.2-1.3) mg/dL AST 63 H 64 H (14-36) U/L ALT 27 27 (6-35) U/L Alkaline Phosphatase 77 67 (38-126) U/L Albumin 3.8 3.6 (3.5-5.1) g/dL
--- NOTE | 2025-05-17 15:41 | P.PNIM_ITS ---
Progress Note: A&P Assessment and Plan (1) Acetaminophen overdose: Code(s): T39.1X1A - Poisoning by 4-Aminophenol derivatives, accidental (unintentional), initial encounter Status: Acute Assessment and Plan: Tylenol or does and part of polysubstance overdose One-to-one sitter and suicide precaution Tylenol level was 78 on presentation with normal liver enzymes N-acetylcysteine infusion was started after consultation with poison Control and will be continued Repeat labs were done yesterday and showed Tylenol level has cleared with normal LFTs. After consultation with poison Control NAC infusion was discontinued after initial protocol (2) Polysubstance overdose: Code(s): T50.901A - Poisoning by unspecified drugs, medicaments and biological substa nces, accidental (unintentional), initial encounter Status: Acute Assessment and Plan: Patient likely took excessive amount of [place]. Opioid effect has likely worn off as patient is awake agitated and has no evidence of respiratory insufficiency Monitor Consult Psychiatry (3) Schizoaffective disorder: Qualifiers: Schizoaffective disorder type: bipolar Qualified Code(s): F25.0 - Schizoaffective disorder, bipolar type Code(s): F25.9 - Schizoaffective disorder, unspecified Status: Acute Assessment and Plan: Resume psychiatry meds Consult psychiatry (4) Poly-drug misuser: Code(s): F19.90 - Other psychoactive substance use, unspecified, uncomplicated Status: Acute Assessment and Plan: Counseling provided (5) Encephalopathy: Code(s): G93.40 - Encephalopathy, unspecified Status: Resolved Assessment and Plan: Toxic encephalopathy, head CT negative Ammonia normal Off Precedex infusion Off restraints now Psychiatry consulted (6) Electrolyte abnormality: Code(s): E87.8 - Other disorders of electrolyte and fluid balance, not elsewhere classified Status: Resolved Assessment and Plan: Potassium improved after placement Discontinue IV fluid Plan DVT prophylaxis -Lovenox Nutrition -clear liquid diet advance as tolerated Code Status - Full Code Subjective Date/time seen: 05/17/25 15:41 Interval history: Chart reviewed. Intermittently agitated. States took those medications to get high. Has been admitted for suicide admission in the past Review of Systems Review of Systems: All systems reviewed & are unremarkable except as noted in HPI and below (HPI) Exam Narrative: General: Pt is awake calm and not in any distress physically wrist restrained Lungs/Chest: Trachea central Clear BS B/L, No crackles or wheezing. Cardiac: RRR. Normal S1 S2. No murmurs Circulation: Pedal pulses are intact and symmetrical. Abdomen: Normal bowel sounds. Obese. Soft. NT. ND. Extremities: No clubbing, cyanosis or edema. Warm : Rich in place Neurologic: Patient is AO x2,, awake alert follows commands with all 4 extremities Skin: No Rash HEENT: Oral mucosa and tongue is dry Objective Data Vital Signs Vital Signs: Vital Signs - 24 hr 05/16/25 15:45 05/16/25 16:00 05/16/25 16:00 Temperature Pulse Rate 52 L 52 L Respiratory Rate 20 19 Blood Pressure Pulse Oximetry Oxygen Delivery Room Air Fraction of Inspired Oxygen 05/16/25 16:00 05/16/25 16:00 05/16/25 17:00 Temperature 98.4 F 98.1 F Pulse Rate 52 L 54 L 60 Respiratory Rate 19 24 H Blood Pressure 102/57 L 111/63 Pulse Oximetry 96 94 Oxygen Delivery Fraction of Inspired Oxygen 05/16/25 17:15 05/16/25 17:45 05/16/25 17:56 Temperature Pulse Rate 49 L 49 L 54 L Respiratory Rate 19 20 23 H Blood Pressure Pulse Oximetry Oxygen Delivery Fraction of Inspired Oxygen 05/16/25 17:56 05/16/25 18:00 05/16/25 18:00 Temperature Pulse Rate 54 L 48 L 50 L Respiratory Rate 23 H 20 Blood Pressure Pulse Oximetry Oxygen Delivery Fraction of Inspired Oxygen 05/16/25 18:00 05/16/25 18:15 05/16/25 18:45 Temperature 97.7 F Pulse Rate 50 L 48 L 45 L Respiratory Rate 20 20 18 Blood Pressure 97/57 L Pulse Oximetry 95 Oxygen Delivery Fraction of Inspired Oxygen 05/16/25 19:00 05/16/25 20:00 05/16/25 20:00 Temperature 97.6 F 97.6 F Pulse Rate 53 L 55 L 55 L Respiratory Rate 19 18 18 Blood Pressure 106/55 L 110/77 Pulse Oximetry 94 94 Oxygen Delivery Fraction of Inspired Oxygen 05/16/25 20:00 05/16/25 20:28 05/16/25 20:30 Temperature Pulse Rate 52 L Respiratory Rate Blood Pressure Pulse Oximetry 92 Oxygen Delivery Room Air Room Air Fraction of Inspired Oxygen 05/16/25 21:00 05/16/25 21:28 05/16/25 22:00 Temperature 97.3 F L 97.2 F L Pulse Rate 47 L 45 L 100 Respiratory Rate 23 H 19 32 H Blood Pressure 111/64 135/96 H Pulse Oximetry 94 93 Oxygen Delivery Fraction of Inspired Oxygen 05/16/25 22:00 05/16/25 22:00 05/16/25 22:02 Temperature Pulse Rate 48 L 48 L 48 L Respiratory Rate 22 H 22 H Blood Pressure Pulse Oximetry Oxygen Delivery Fraction of Inspired Oxygen 05/16/25 22:27 05/16/25 23:04 05/16/25 23:45 Temperature 97 F L Pulse Rate 41 L 58 L 63 Respiratory Rate 22 H 21 H 24 H Blood Pressure 105/86 Pulse Oximetry 92 97 Oxygen Delivery Fraction of Inspired Oxygen 05/16/25 23:45 05/17/25 00:00 05/17/25 00:00 Temperature 97.3 F L Pulse Rate 47 L 47 L Respiratory Rate 25 H 25 H Blood Pressure 113/65 Pulse Oximetry 95 Oxygen Delivery Room Air Fraction of Inspired Oxygen 05/17/25 00:00 05/17/25 01:00 05/17/25 01:00 Temperature 97 F L Pulse Rate 44 L 41 L 41 L Respiratory Rate 21 H 21 H Blood Pressure 115/69 Pulse Oximetry 96 Oxygen Delivery Fraction of Inspired Oxygen 05/17/25 02:00 05/17/25 02:00 05/17/25 02:00 Temperature 97.2 F L Pulse Rate 54 L 54 L 54 L Respiratory Rate 23 H 23 H Blood Pressure 132/70 Pulse Oximetry 97 Oxygen Delivery Fraction of Inspired Oxygen 05/17/25 03:00 05/17/25 03:03 05/17/25 03:45 Temperature 98 F Pulse Rate 58 L 58 L 45 L Respiratory Rate 21 H 21 H 22 H Blood Pressure 113/73 Pulse Oximetry 98 Oxygen Delivery Fraction of Inspired Oxygen 05/17/25 04:00 05/17/25 04:00 05/17/25 04:00 Temperature 98.2 F Pulse Rate 43 L 43 L 42 L Respiratory Rate 20 20 Blood Pressure 112/59 L Pulse Oximetry 96 Oxygen Delivery Fraction of Inspired Oxygen 05/17/25 04:15 05/17/25 04:15 05/17/25 05:00 Temperature 97.7 F Pulse Rate 45 L 48 L Respiratory Rate 23 H 21 H Blood Pressure 132/58 L Pulse Oximetry 95 Oxygen Delivery Room Air Fraction of Inspired Oxygen 05/17/25 06:00 05/17/25 06:00 05/17/25 06:00 Temperature 98.2 F Pulse Rate 71 69 69 Respiratory Rate 21 H 21 H Blood Pressure 122/76 Pulse Oximetry 97 Oxygen Delivery Fraction of Inspired Oxygen 05/17/25 06:27 05/17/25 06:27 05/17/25 07:00 Temperature 98.5 F Pulse Rate 69 69 72 Respiratory Rate 24 H 24 H 22 H Blood Pressure 120/73 Pulse Oximetry 96 Oxygen Delivery Fraction of Inspired Oxygen 05/17/25 07:38 05/17/25 08:00 05/17/25 08:00 Temperature 98.5 F Pulse Rate 66 66 66 Respiratory Rate 24 H 26 H 26 H Blood Pressure 113/56 L Pulse Oximetry 96 96 Oxygen Delivery Room Air Fraction of Inspired Oxygen 21 05/17/25 08:00 05/17/25 09:00 05/17/25 10:00 Temperature 98.8 F 98.8 F Pulse Rate 77 77 80 Respiratory Rate 22 H 16 Blood Pressure 122/68 111/68 Pulse Oximetry 100 97 Oxygen Delivery Fraction of Inspired Oxygen 05/17/25 10:00 05/17/25 12:00 05/17/25 12:00 Temperature 98.7 F Pulse Rate 91 66 96 Respiratory Rate 26 H 20 Blood Pressure 123/71 Pulse Oximetry 96 97 Oxygen Delivery Room Air Fraction of Inspired Oxygen 21 05/17/25 14:00 Temperature 100.6 F H Pulse Rate 96 Respiratory Rate 17 Blood Pressure 134/71 Pulse Oximetry 100 Oxygen Delivery Fraction of Inspired Oxygen Intake/Output Intake/Output: Intake & Output 05/14/25 05/15/25 05/16/25 05/17/25 23:59 23:59 23:59 23:59 Intake Total 2776.75 4850.2 1602.4 Output Total 1600 600 Balance 2776.75 3250.2 1002.4 Meds/Results Medications: Active Medications Generic Name Dose Route Start Last Admin Trade Name Freq PRN Reason Stop Dose Admin Benztropine Mesylate 1 mg 05/17/25 09:00 05/17/25 08:34 Benztropine Mesylate 1 Mg Tablet PO 1 mg Q12HR BENEDICTO Administration Bisacodyl 5 mg 05/17/25 07:50 Bisacodyl 5 Mg Tablet Ec PO QAM PRN Constipation Buspirone HCl 30 mg 05/17/25 09:00 05/17/25 08:34 Buspirone Hcl 10 Mg Tablet PO 30 mg Q12HR BENEDICTO Administration Chlorpromazine HCl 100 mg 05/17/25 09:00 Chlorpromazine Hcl 25 Mg Tablet PO Q12HR BENEDICTO Diazepam 5 mg 05/16/25 11:25 05/17/25 03:40 Diazepam Inj (*Crx) 10 Mg/2 Ml Syringe IV PUSH 5 mg Q4H PRN Administration Agitation Docusate Sodium 100 mg 05/17/25 09:00 05/17/25 08:34 Docusate Sodium 100 Mg Capsule PO 100 mg Q12HR BENEDICTO Administration Enoxaparin Sodium 40 mg 05/16/25 09:00 05/17/25 08:33 Enoxaparin 40 Mg/0.4 Ml Syringe SUB-Q 40 mg DAILY BENEDICTO Administration Gabapentin 600 mg 05/17/25 09:00 05/17/25 08:34 Gabapentin 300 Mg Capsule PO 600 mg TID BENEDICTO Administration Dexmedetomidine HCl 400 mcg in 100 mls @ 0 mls/hr 05/16/25 12:30 05/17/25 07:38 Precedex 400 Mcg/100 Ml IV CONT 0 mcg/kg/hr On Hold: 05/17/25 07:52 .Q0M BENEDICTO 0 mls/hr Protocol Titration Naloxone HCl 0.1 mg 05/15/25 20:02 Naloxone Hcl 0.4 Mg/Ml Vial IV PUSH Q5MIN PRN Opiate Reversal Ondansetron HCl 4 mg 05/15/25 16:40 Ondansetron Inj 4 Mg/2 Ml Vial IV PUSH Q4H PRN Nausea Polyethylene Glycol 17 gm 05/17/25 09:00 05/17/25 08:34 Polyethylene Glycol 3350 17 Gm Powd.Pack PO 17 gm QAM BENEDICTO Administration Sertraline HCl 200 mg 05/17/25 09:00 05/17/25 08:34 Sertraline Hcl 50 Mg Tablet PO 200 mg DAILY BENDEICTO Administration Trazodone HCl 50 mg 05/17/25 21:00 Trazodone Hcl 50 Mg Tablet PO HS [facility] Radiology Results: ITS Impressions Head CT 05/15/25 16:46 IMPRESSION: 1. Normal brain. No acute intracranial process. Chest X-Ray 05/15/25 16:48 IMPRESSION: 1. No acute cardiopulmonary disease. Labs Labs: Laboratory Results - last 24 hr 05/17/25 03:50 WBC 8.7 RBC 3.61 L Hgb 12.7 Hct 39.3 MCV 108.9 H MCH 35.2 H MCHC 32.3 RDW 12.7 Plt Count 246 MPV 9.5 Sodium 139 Potassium 4.0 Chloride 114 H Carbon Dioxide 18 L Anion Gap 7 BUN 7 Creatinine 0.44 L Estim Creat Clear Calc 121 Estimated GFR > 60 Glucose 94 Calcium 8.7 Magnesium 2.1 Total Bilirubin 1.4 H AST 64 H ALT 27 Alkaline Phosphatase 67 Total Protein 6.8 Albumin 3.6
[2025-05-17] MEDS: KETOROLAC 30 MG/ML VIAL (*BKC) IV PUSH (20:07)
[2025-05-18] VITALS (8 sets, daily range): BP systolic 100–127; BP diastolic 60–81; PULSE 75–95; RESP 16; TEMP 37–37.2; O2SAT 90–99
[2025-05-18 03:59] LABS: Hematocrit 39.1 % (37.0-47.0); Hemoglobin 12.9 g/dL (12.0-15.0); Mean Corpuscular HGB Conc 33.0 g/dl (32-36); Mean Corpuscular Hemoglobin 35.6 pg (26-34); Mean Corpuscular Volume 108.0 fl (80-100); Platelet Count Result 241 k/mm3 (150-375); Red Blood Count 3.62 M/mm3 (4.2-5.4); White Blood Count 8.6 K/mm3 (4.5-10.0)
[2025-05-18 07:25] LABS: Alanine Aminotransferase 37 U/L (6-35); Albumin Level 3.5 g/dL (3.5-5.1); Alkaline Phosphatase 88 U/L (38-126); Anion Gap 8 mmol/L (4-12); Aspartate Amino Transferase 66 U/L (14-36); Bilirubin,Total 0.9 mg/dL (0.2-1.3); Blood Urea Nitrogen 7 mg/dL (7-17); Calcium 9.0 mg/dL (8.4-10.2); Carbon Dioxide 26 mmol/L (22-30); Chloride 109 mmol/L (98-107); Estimated CRCL calculation 101 ml/min; Estimated Glomerular Filt Rate > 60; Glucose 92 mg/dL (65-110); Magnesium 2.0 mg/dL (1.6-2.3); Potassium 3.3 mmol/L (3.4-5.0); Sodium 143 mmol/L (137-145); Total Protein 6.7 g/dL (6.3-8.2)
[2025-05-18] MEDS: POTASSIUM CHLORIDE 20 MEQ ER TABLET 40 MEQ PO (08:44)
[2025-05-18] MEDS: BENZTROPINE MESYLATE 1 MG TABLET PO (08:44)
[2025-05-18] MEDS: SERTRALINE HCL 50 MG TABLET 200 MG PO (08:45)
[2025-05-18] MEDS: GABAPENTIN 300 MG CAPSULE 600 MG PO ×3 (08:45→16:54)
[2025-05-18] MEDS: ENOXAPARIN 40 MG/0.4 ML SYRINGE SUB-Q (08:45)
--- NOTE | 2025-05-18 09:12 | PM.IMPN ---
Progress Note: A&P Assessment and Plan (1) Acetaminophen overdose: Code(s): T39.1X1A - Poisoning by 4-Aminophenol derivatives, accidental (unintentional), initial encounter Status: Acute Assessment and Plan: Tylenol overdose and possible polysubstance overdose One-to-one sitter and suicide precaution Tylenol level was 78 on presentation with normal liver enzymes, N-acetylcysteine infusion was started after consultation with poison Control Repeat labs were done yesterday and showed Tylenol level has cleared with normal LFTs. After consultation with poison Control NAC infusion was discontinued after initial protocol (2) Polysubstance overdose: Code(s): T50.901A - Poisoning by unspecified drugs, medicaments and biological substances, accidental (unintentional), initial encounter Status: Acute Assessment and Plan: Patient likely took excessive amount of [place]. Opioid effect has likely worn off as patient is awake agitated and has no evidence of respiratory insufficiency Monitor Appreciate psychiatry consult, -patient started on benztropine, buspirone, chlorpromazine, sertraline and trazodone -medically stable, will have crisis management evaluated the patient for inpatient psychiatric care as per psychiatry recommendation (3) Schizoaffective disorder: Qualifiers: Schizoaffective disorder type: bipolar Qualified Code(s): F25.0 - Schizoaffective disorder, bipolar type Code(s): F25.9 - Schizoaffective disorder, unspecified Status: Acute Assessment and Plan: Resume psychiatry meds Appreciate psychiatry evaluation recommendation (4) Poly-drug misuser: Code(s): F19.90 - Other psychoactive substance use, unspecified, uncomplicated Status: Acute Assessment and Plan: Consult patient on poly drug misuse and overdose (5) Encephalopathy: Code(s): G93.40 - Encephalopathy, unspecified Status: Resolved Assessment and Plan: Toxic encephalopathy, head CT negative Ammonia normal Off Precedex infusion Off restraints Resume her psych meds (6) Electrolyte abnormality: Code(s): E87.8 - Other disorders of electrolyte and fluid balance, not elsewhere classified Status: Resolved Assessment and Plan: Will replace potassium Discontinue IV fluid Plan DVT prophylaxis -Lovenox Nutrition -clear liquid diet advance as tolerated Code Status - Full Code Due to a high probability of clinically significant, life threatening deterioration, the patient required my highest level of preparedness to intervene emergently and I personally spent this critical care time directly and personally managing the patient. This critical care time included obtaining a history; examining the patient; pulse oximetry; ordering and review of studies; arranging urgent treatment with development of a management plan; evaluation of patient's response to treatment; frequent reassessment; and discussions with other providers. It was exclusive of separately billable procedures and treating other patients and teaching time. Please see Assessment and Plan section and the rest of the note for further information on patient assessment and treatment. This dictation may have been done utilizing a voice recognition system. Attempts have been made to correct errors. However, there may be uncorrected grammatical, spelling, and recognitions errors present. Subjective Date/time seen: 05/18/25 09:12 Interval history: 05/18/2025: Patient being seen for the hospitalist group Patient seen and examined, chart reviewed, not agitated overnight, remains common this morning, denies any chest pain, shortness of breath, abdominal pain, nausea, vomiting. States her appetite is poor. Did not answer when I asked her regarding suicidal ideation. No other complaints Review of Systems Review of Systems: All systems reviewed & are unremarkable except as noted in HPI and below (HPI) Exam Narrative: General: Pt is awake calm and not in any distress Lungs/Chest: Trachea central Clear BS B/L, No crackles or wheezing. Cardiac: RRR. Normal S1 S2. No murmurs Circulation: Pedal pulses are intact and symmetrical. Abdomen: Normal bowel sounds. Obese. Soft. NT. ND. Extremities: No clubbing, cyanosis or edema. Warm : Rich in place Neurologic: Patient is awake, alert, able to answer questions and follows commands in all extremities Skin: No Rash HEENT: Moist oral mucosa Objective Data Vital Signs Vital Signs: Vital Signs - 24 hr 05/17/25 10:00 05/17/25 10:05/17/25 12:00 Temperature 98.8 F Pulse Rate 80 91 66 Respiratory Rate 16 26 H Blood Pressure 111/68 Pulse Oximetry 97 96 Oxygen Delivery Room Air Fraction of Inspired Oxygen 21 05/17/25 12:00 05/17/25 12:00 05/17/25 14:00 Temperature 98.7 F 100.6 F H Pulse Rate 96 91 96 Respiratory Rate 20 17 Blood Pressure 123/71 134/71 Pulse Oximetry 97 100 Oxygen Delivery Fraction of Inspired Oxygen 05/17/25 14:00 05/17/25 16:00 05/17/25 16:00 Temperature 101.0 F H Pulse Rate 95 66 94 Respiratory Rate 26 H 25 H Blood Pressure 145/98 H Pulse Oximetry 96 98 Oxygen Delivery Room Air Fraction of Inspired Oxygen 21 05/17/25 16:00 05/17/25 18:00 05/17/25 20:00 Temperature Pulse Rate 91 100 Respiratory Rate Blood Pressure Pulse Oximetry Oxygen Delivery Room Air Fraction of Inspired Oxygen 05/17/25 20:00 05/17/25 20:00 05/17/25 20:02 Temperature 99 F Pulse Rate 84 84 85 Respiratory Rate 16 20 Blood Pressure 134/78 Pulse Oximetry 96 96 Oxygen Delivery Room Air Fraction of Inspired Oxygen 21 05/17/25 22:00 05/18/25 00:00 05/18/25 00:00 Temperature Pulse Rate 102 H 93 Respiratory Rate Blood Pressure Pulse Oximetry 96 Oxygen Delivery Room Air Fraction of Inspired Oxygen 05/18/25 00:00 05/18/25 02:00 05/18/25 04:00 Temperature 98.9 F 98.7 F Pulse Rate 93 78 75 Respiratory Rate 16 16 Blood Pressure 108/60 127/71 Pulse Oximetry 90 97 Oxygen Delivery Fraction of Inspired Oxygen 05/18/25 04:00 05/18/25 06:00 Temperature Pulse Rate 75 79 Respiratory Rate Blood Pressure Pulse Oximetry Oxygen Delivery Fraction of Inspired Oxygen Intake/Output Intake/Output: Intake & Output 05/15/25 05/16/25 05/17/25 05/18/25 23:59 23:59 23:59 23:59 Intake Total 2776.75 4850.2 1602.4 Output Total 1600 2700 400 Balance 2776.75 3250.2 -1097.6 -400 Meds/Results Medications: Active Medications Generic Name Dose Route Start Last Admin Trade Name Freq PRN Reason Stop Dose Admin Benztropine Mesylate 1 mg 05/17/25 09:00 05/18/25 08:44 Benztropine Mesylate 1 Mg Tablet PO 1 mg Q12HR BENEDICTO Administration Bisacodyl 5 mg 05/17/25 07:50 Bisacodyl 5 Mg Tablet Ec PO QAM PRN Constipation Buspirone HCl 30 mg 05/17/25 09:00 05/18/25 08:44 Buspirone Hcl 10 Mg Tablet PO 30 mg Q12HR BENEDICTO Administration Chlorpromazine HCl 100 mg 05/17/25 09:00 05/18/25 08:44 Chlorpromazine Hcl 25 Mg Tablet PO 100 mg Q12HR BENEDICTO Administration Diazepam 5 mg 05/16/25 11:25 05/17/25 03:40 Diazepam Inj (*Crx) 10 Mg/2 Ml Syringe IV PUSH 5 mg Q4H PRN Administration Agitation Docusate Sodium 100 mg 05/17/25 09:00 05/18/25 08:45 Docusate Sodium 100 Mg Capsule PO Not Given Q12HR BENEDICTO Enoxaparin Sodium 40 mg 05/16/25 09:00 05/18/25 08:45 Enoxaparin 40 Mg/0.4 Ml Syringe SUB-Q 40 mg DAILY BENEDICTO Administration Gabapentin 600 mg 05/17/25 09:00 05/18/25 08:45 Gabapentin 300 Mg Capsule PO 600 mg TID BENEDICTO Administration Naloxone HCl 0.1 mg 05/15/25 20:02 Naloxone Hcl 0.4 Mg/Ml Vial IV PUSH Q5MIN PRN Opiate Reversal Ondansetron HCl 4 mg 05/15/25 16:40 Ondansetron Inj 4 Mg/2 Ml Vial IV PUSH Q4H PRN Nausea Polyethylene Glycol 17 gm 05/17/25 09:00 05/18/25 08:45 Polyethylene Glycol 3350 17 Gm Powd.Pack PO Not Given QAM BENEDICTO Sertraline HCl 200 mg 05/17/25 09:00 05/18/25 08:45 Sertraline Hcl 50 Mg Tablet PO 200 mg DAILY BENEDICTO Administration Trazodone HCl 50 mg 05/17/25 21:00 05/17/25 21:04 Trazodone Hcl 50 Mg Tablet PO Not Given HS [facility] Radiology Results: ITS Impressions Head CT 05/15/25 16:46 IMPRESSION: 1. Normal brain. No acute intracranial process. Chest X-Ray 05/15/25 16:48 IMPRESSION: 1. No acute cardiopulmonary disease. Labs Labs: Laboratory Results - last 24 hr 05/18/25 05/18/25 03:48 05:05 WBC 8.6 RBC 3.62 L Hgb 12.9 Hct 39.1 MCV 108.0 H MCH 35.6 H MCHC 33.0 RDW 12.6 Plt Count 241 MPV 9.6 Sodium 143 Potassium 3.3 L Chloride 109 H Carbon Dioxide 26 Anion Gap 8 BUN 7 Creatinine 0.47 L Estim Creat Clear Calc 101 Estimated GFR > 60 Glucose 92 Calcium 9.0 Magnesium 2.0 Total Bilirubin 0.9 AST 66 H ALT 37 H Alkaline Phosphatase 88 Total Protein 6.7 Albumin 3.5 Quality VTE Prophylaxis VTE prophylaxis: pharmacologic ordered
--- NOTE | 2025-05-18 14:59 | ECG_ITS ---
Test Date: 2025-05-18 15:11:01 Measurements Intervals [place] Rate: 100 P: 61 NC: 141 QRS: 5 QRSD: 97 T: 30 QT: 320 QTc: 413 Interpretive Statements SINUS TACHYCARDIA WITH OCCASIONAL SUPRAVENTRICULAR PREMATURE COMPLEXES LOW QRS VOLTAGE IN PRECORDIAL LEADS [QRS DEFLECTION < 1.0 mV IN CHEST LEADS] INCOMPLETE RIGHT BUNDLE BRANCH BLOCK [90+ ms QRS DURATION, TERMINAL R IN V1/V2, 40+ ms S IN I/aVL/V4/V5/V6] ABNORMAL RHYTHM ECG Compared to ECG 01/30/2025 22:59:20 NO SIGNIFICANT DIFFERENCE Electronically Signed On 05-19-2025 15:53:03 CDT by Mat Jara M.D.
[2025-05-18 15:03] LABS: Influenza A QL RT-PCR Negative (Negative); Influenza B QL RT-PCR Negative (Negative); RSV RNA, RT-PCR Negative (Negative); SARS-CoV-2 RNA PCR Negative (Negative)
--- NOTE | 2025-05-21 11:13 | PM.DS ---
DS: Admitting Diagnosis Discharge Date 05/18/25 Admitting Diagnosis Altered mental status, [place] overdose DS: Discharge Diagnosis Discharge Diagnosis (1) Acetaminophen overdose: Code(s): T39.1X1A - Poisoning by 4-Aminophenol derivatives, accidental (unintentional), initial encounter Status: Acute Assessment and Plan: Tylenol overdose and possible polysubstance overdose One-to-one sitter and suicide precaution Tylenol level was 78 on presentation with normal liver enzymes, N-acetylcysteine infusion was started after consultation with poison Control Repeat labs were done yesterday and showed Tylenol level has cleared with normal LFTs. After consultation with poison Control NAC infusion was discontinued after initial protocol (2) Polysubstance overdose: Code(s): T50.901A - Poisoning by unspecified drugs, medicaments and biological substances, accidental (unintentional), initial encounter Status: Acute Assessment and Plan: Patient likely took excessive amount of [place]. Opioid effect has likely worn off as patient is awake agitated and has no evidence of respiratory insufficiency Monitor Appreciate psychiatry consult, -patient started on benztropine, buspirone, chlorpromazine, sertraline and trazodone -medically stable, will have crisis management evaluated the patient for inpatient psychiatric care as per psychiatry recommendation (3) Schizoaffective disorder: Qualifiers: Schizoaffective disorder type: bipolar Qualified Code(s): F25.0 - Schizoaffective disorder, bipolar type Code(s): F25.9 - Schizoaffective disorder, unspecified Status: Acute Assessment and Plan: Resume psychiatry meds Appreciate psychiatry evaluation recommendation (4) Poly-drug misuser: Code(s): F19.90 - Other psychoactive substance use, unspecified, uncomplicated Status: Acute Assessment and Plan: Consult patient on poly drug misuse and overdose (5) Encephalopathy: Code(s): G93.40 - Encephalopathy, unspecified Status: Resolved Assessment and Plan: Toxic encephalopathy, head CT negative Ammonia normal Off Precedex infusion Off restraints Resume her psych meds (6) Electrolyte abnormality: Code(s): E87.8 - Other disorders of electrolyte and fluid balance, not elsewhere classified Status: Resolved Assessment and Plan: Will replace potassium Discontinue IV fluid Plan DVT prophylaxis -Lovenox Nutrition -clear liquid diet advance as tolerated Code Status - Full Code Due to a high probability of clinically significant, life threatening deterioration, the patient required my highest level of preparedness to intervene emergently and I personally spent this critical care time directly and personally managing the patient. This critical care time included obtaining a history; examining the patient; pulse oximetry; ordering and review of studies; arranging urgent treatment with development of a management plan; evaluation of patient's response to treatment; frequent reassessment; and discussions with other providers. It was exclusive of separately billable procedures and treating other patients and teaching time. Please see Assessment and Plan section and the rest of the note for further information on patient assessment and treatment. This dictation may have been done utilizing a voice recognition system. Attempts have been made to correct errors. However, there may be uncorrected grammatical, spelling, and recognitions errors present. DS: Summary Hospital Course Reason for hospitalization: [place] Overdose/acetaminophen overdose, altered mental status Hospital Course: Mahnaz Oseguera is a 59 year old female with past medical history of narcotic and polypharmacy, bipolar, schizoaffective disorder, COPD, seizures, drug abuse presents and multiple admissions to the hospital presented to the ED on 05/15/2025 with altered mental status, [place]/acetaminophen overdose. Patient's mother found her laying on the floor with a pill bottle next to her, she had recently filled [place] in the bottle was completely empty. Patient has been admitted with drug overdose in the past. Patient was unable to provide any meaningful history as she was confused and agitated. In the past, patient is stated that she is not trying to kill herself but just likes being high on medications. Workup in the ER showed leukocytosis at 13.1 potassium of 3.3, carbon dioxide 21, creatinine of 0.66, glucose of 182, lactic acid of 3.1, ammonia less than 9, UA negative for infection, urine drug screen is positive for opioids, acetaminophen level of 78, barbiturates, negative for alcohol. Chest x-ray and head CT were negative Poison control was notified, patient was started on N acetyl cystine answer initial Tylenol level was 78 with normal liver enzymes. Patient also had some agitated behavior which improved with IV fluids, no evidence of respiratory insufficiency was noted. CT of the brain was negative, she had some electrolyte abnormalities which were replenished. She was status post N acetyl cystine infusion and her repeat Tylenol level was less than 10 with normal LFTs. Psychiatrist evaluated the patient and started her on benztropine, buspirone, chlorpromazine, sertraline and trazodone and medically cleared her for crisis management to evaluate the patient. Psychiatrist did recommend inpatient psychiatry unit for the patient. 05/18/2025 patient was transferred to [facility] psych unit in stable condition Status at Discharge Cognitive/behavioral status at discharge: Stable condition Overall status at discharge: patient is back to baseline Time Spent with Patient Time attestation: Total time spent providing and/or coordinating discharge services:20 minutes Exam Narrative: General: Pt is awake calm and not in any distress Lungs/Chest: Trachea central Clear BS B/L, No crackles or wheezing. Cardiac: RRR. Normal S1 S2. No murmurs Circulation: Pedal pulses are intact and symmetrical. Abdomen: Normal bowel sounds. Obese. Soft. NT. ND. Extremities: No clubbing, cyanosis or edema. Warm : Rich in place Neurologic: Patient is awake, alert, able to answer questions and follows commands in all extremities Skin: No Rash HEENT: Moist oral mucosa Discharge Plan Discharge Attending physician on discharge: Khadra Babcock Consulting providers: Mono Gay; Jax Patel; Beba Melendrez; Brett Hillman; Mat Jara; Amadeo Gracia Discharging Clinician: Khadra Babcock Anticipated Discharge Date/Time: 05/18/25 17:00 Patient Disposition: Psychiatric Hosp Activity: january shower Diet: regular Patient Language: Georgian Discharge Orders: Discharge Order (Routine); Ordered 05/21/25 Ordered By: Khadra Babcock Discharge Medications: Continued prazosin 5 mg capsule 10 mg PO HS 7 Days Qty: 0 0RF benztropine 1 mg tablet 1 mg PO Q12H 7 Days Qty: 0 0RF buspirone 30 mg tablet 30 mg PO Q12H 7 Days Qty: 0 0RF cyclobenzaprine 10 mg tablet 10 mg PO Q12H 7 Days Qty: 0 0RF trazodone 50 mg tablet 50 mg PO HS 7 Days Qty: 0 0RF benztropine 2 mg tablet 2 mg PO BID PRN (Reason: involuntary movement) 7 Days Qty: 0 0RF chlorpromazine 100 mg tablet 100 mg PO Q12H 7 Days Qty: 0 0RF gabapentin 300 mg capsule 600 mg PO TID 7 Days Qty: 0 0RF zgnejfnssi-rdcmqlpyjftrn-apsf 50-325-40 mg Tablet 1 tablet PO Q8H PRN (Reason: Headache) 7 Days Qty: 0 0RF ondansetron 4 mg tablet,disintegrating 4 mg translingual TID PRN (Reason: nausea and vomiting) 7 Days Qty: 0 0RF sertraline 100 mg tablet 200 mg PO DAILY 7 Days Qty: 0 0RF hydrocodone-acetaminophen 5-325 mg tablet 1 tablet PO Q8H 7 Days Qty: 0 0RF Date of admission: 05/16/25 09:18 Primary Care Provider: SeraNeil Admitting Provider: Josiah Burch Attending physician on admission: Khadra Babcock Condition: Stable Quality VTE Prophylaxis VTE prophylaxis: pharmacologic ordered
--- NOTE | 2025-05-21 11:56 | P.TS_ITS ---
Transfer Discharge Sum: Prov Provider Date of admission: 05/16/25 09:18 Primary care physician: Neil Barbour, Admitting clinician: Josiah Burch MD Consults: 05/15/25 16:42 Consult to Physician Routine Comment: Consulting Provider: Mono Gay Reason for consultation: Acetaminophen overdose Has provider been notified: Yes 05/17/25 Consult to Physician Routine Comment: Consulting Provider: Edgardo Marroquin call person/MD group to consult: Psychiatry Left message on [place] dedicated line and sent Face Sheet as directed. Reason for consultation: Schizophrenia, Suicide Attempt Has provider been notified: Yes Attending physician on discharge: Khadra Babcock Discharging clinician: Khadra Babcock Anticipated date of transfer: 05/18/25 Receiving physician/facility: [facility] DS: Admitting Diagnosis Discharge Date 05/18/25 Admitting Diagnosis [place]/acetaminophen overdose, altered mental status DS: Discharge Diagnosis Discharge Diagnosis (1) Acetaminophen overdose: Code(s): T39.1X1A - Poisoning by 4-Aminophenol derivatives, accidental (unintentional), initial encounter Status: Acute Assessment and Plan: Tylenol overdose and possible polysubstance overdose One-to-one sitter and suicide precaution Tylenol level was 78 on presentation with normal liver enzymes, N-acetylcysteine infusion was started after consultation with poison Control Repeat labs were done yesterday and showed Tylenol level has cleared with normal LFTs. After consultation with poison Control NAC infusion was discontinued after initial protocol (2) Polysubstance overdose: Code(s): T50.901A - Poisoning by unspecified drugs, medicaments and biological substances, accidental (unintentional), initial encounter Status: Acute Assessment and Plan: Patient likely took excessive amount of [place]. Opioid effect has likely worn off as patient is awake agitated and has no evidence of respiratory insufficiency Monitor Appreciate psychiatry consult, -patient started on benztropine, buspirone, chlorpromazine, sertraline and trazodone -medically stable, will have crisis management evaluated the patient for inpatient psychiatric care as per psychiatry recommendation (3) Schizoaffective disorder: Qualifiers: Schizoaffective disorder type: bipolar Qualified Code(s): F25.0 - Schizoaffective disorder, bipolar type Code(s): F25.9 - Schizoaffective disorder, unspecified Status: Acute Assessment and Plan: Resume psychiatry meds Appreciate psychiatry evaluation recommendation (4) Poly-drug misuser: Code(s): F19.90 - Other psychoactive substance use, unspecified, uncomplicated Status: Acute Assessment and Plan: Consult patient on poly drug misuse and overdose (5) Encephalopathy: Code(s): G93.40 - Encephalopathy, unspecified Status: Resolved Assessment and Plan: Toxic encephalopathy, head CT negative Ammonia normal Off Precedex infusion Off restraints Resume her psych meds (6) Electrolyte abnormality: Code(s): E87.8 - Other disorders of electrolyte and fluid balance, not elsewhere classified Status: Resolved Assessment and Plan: Will replace potassium Discontinue IV fluid Plan DVT prophylaxis -Lovenox Nutrition -clear liquid diet advance as tolerated Code Status - Full Code Due to a high probability of clinically significant, life threatening deterioration, the patient required my highest level of preparedness to intervene emergently and I personally spent this critical care time directly and personally managing the patient. This critical care time included obtaining a history; examining the patient; pulse oximetry; ordering and review of studies; arranging urgent treatment with development of a management plan; evaluation of patient's response to treatment; frequent reassessment; and discussions with other providers. It was exclusive of separately billable procedures and treating other patients and teaching time. Please see Assessment and Plan section and the rest of the note for further information on patient assessment and treatment. This dictation may have been done utilizing a voice recognition system. Attempts have been made to correct errors. However, there may be uncorrected grammatical, spelling, and recognitions errors present. Transfer Discharge Sum: Med Medications Active and Home Medications: Home Medications benztropine 2 mg tablet 2 mg PO BID PRN involuntary movement 04/18/22 [History Confirmed 05/16/25] prazosin 5 mg capsule 10 mg PO HS 04/18/22 [History Confirmed 05/16/25] chlorpromazine 100 mg tablet 100 mg PO Q12H 03/27/23 [History Confirmed 05/16/25] gabapentin 300 mg capsule 600 mg PO TID 05/25/23 [History Confirmed 05/16/25] aqkbbmbymz-xdhbnwbtxgufw-hhrxuuea 50 mg-325 mg-40 mg tablet 1 tablet PO Q8H PRN Headache 07/26/24 [History Confirmed 05/16/25] benztropine 1 mg tablet 1 mg PO Q12H 01/31/25 [History Confirmed 05/16/25] buspirone 30 mg tablet 30 mg PO Q12H 01/31/25 [History Confirmed 05/16/25] ondansetron 4 mg disintegrating tablet 4 mg translingual TID PRN nausea and vomiting 01/31/25 [History Confirmed 05/16/25] sertraline 100 mg tablet 200 mg PO DAILY 01/31/25 [History Confirmed 05/16/25] cyclobenzaprine 10 mg tablet 10 mg PO Q12H 05/16/25 [History Confirmed 05/16/25] hydrocodone 5 mg-acetaminophen 325 mg tablet 1 tablet PO Q8H 05/16/25 [History Confirmed 05/16/25] trazodone 50 mg tablet 50 mg PO HS 05/16/25 [History Confirmed 05/16/25] Transfer Discharge Sum: Hosp Hospital Course Hospital course: Mahnaz Oseguera is a 59 year old female with past medical history of narcotic and polypharmacy, bipolar, schizoaffective disorder, COPD, seizures, drug abuse presents and multiple admissions to the hospital presented to the ED on 05/15/2025 with altered mental status, and overdose on [place]/acetaminophen. Patient's mother found her laying on the floor with a pending bottle next to her. She had recently filled [place] and the bottle was completely empty.. She has been admitted with drug overdose in the past. Patient was unable to provide any meaningful history as she was confused and agitated. Patient has stated in the past that she is not trying to kill herself but just likes being high on medications. Workup in the ER showed leukocytosis at 13.1 potassium of 3.3, carbon dioxide 21, creatinine of 0.66, glucose of 182, lactic acid of 3.1, ammonia less than 9, UA negative for infection, urine drug screen is positive for opioids, acetaminophen level of 78, barbiturates, negative for alcohol. Chest x-ray and head CT were negative Poison control was notified and recommended starting N- acetylcystine which was started due to high ammonia levels being 78, she completed N- acetylcystine, repeat acid tomorrow fen levels were < 10 Psychiatry was consulted, evaluated the patient, recommended inpatient psych facility transfer. Patient was also started on benztropine, buspirone, chlorpromazine, sertraline and trazodone. 05/18/2025: on the day of transfer patient was awake, alert, oriented, medically stable. Crisis management also evaluate the patient, patient was transferred to [facility] in stable condition. Patient Condition: Stable Time Spent with Patient Time attestation: Total time spent providing and/or coordinating transfer services: 20 minutes Exam Narrative: General: Pt is awake calm and not in any distress Lungs/Chest: Trachea central Clear BS B/L, No crackles or wheezing. Cardiac: RRR. Normal S1 S2. No murmurs Circulation: Pedal pulses are intact and symmetrical. Abdomen: Normal bowel sounds. Obese. Soft. NT. ND. Extremities: No clubbing, cyanosis or edema. Warm : Rich in place Neurologic: Patient is awake, alert, able to answer questions and follows commands in all extremities Skin: No Rash HEENT: Moist oral mucosa
== END 2025-05-18 17:10 | DRG 917 ==
LOC: ANHED 16:18 → ANHICU 17:34
PROVIDERS: Internal Medicine; Admitting Provider Internal Medicine; Emergency Provider Emergency Medicine; PCP Internal Medicine Gastroenterology; Visit Provider Internal Medicine
DX: T39.1X2A Poisoning by 4-Aminophenol derivatives, intentional self-harm, initial encounter (principal); G92.8 Other toxic encephalopathy; R41.82 Altered mental status, unspecified; F25.0 Schizoaffective disorder, bipolar type; F11.10 Opioid abuse, uncomplicated; F15.90 Other stimulant use, unspecified, uncomplicated; K21.9 Gastro-esophageal reflux disease without esophagitis; J44.9 Chronic obstructive pulmonary disease, unspecified; E87.8 Other disorders of electrolyte and fluid balance, not elsewhere classified; F16.21 Hallucinogen dependence, in remission; F12.21 Cannabis dependence, in remission; F10.91 Alcohol use, unspecified, in remission; F17.210 Nicotine dependence, cigarettes, uncomplicated; D72.829 Elevated white blood cell count, unspecified; Z20.822 Contact with and (suspected) exposure to COVID-19; Z91.51 Personal history of suicidal behavior; Z86.19 Personal history of other infectious and parasitic diseases; Z85.54 Personal history of malignant neoplasm of ureter; Z81.8 Family history of other mental and behavioral disorders; Z90.710 Acquired absence of both cervix and uterus
CPT/HCPCS: 36415; 36600; 70450; 71045; 80048; 80053; 80143; 80179; 80307; 81001; 82077; 82140; 82550; 82805; 82948; 83605; 83735; 85018; 85025; 85027; 85610; 85730; 87637; 87641; 93005; 96361; 96365; 96375; 99285; A9270; G0378; J0132; J1650; J1885; J3360; J3480; J7030; J7040; J7060; J7070

== ENCOUNTER 2025-06-07 13:47 | Emergency (ER) | payer MEDICARE, MEDICAID, SELFPAY ==
--- NOTE | ~2025-06-07 | XR_ITS ---
XR cervical spine 4-5V INDICATION: Pain. Fell 2 weeks ago TECHNIQUE: 5 views of the cervical spine. Correlation: CT cervical spine 01/31/2025 FINDINGS: Cervical vertebral body heights are within normal limits. No compression fracture in the cervical spine. Reversal of the normal cervical lordosis centered at the C5 level. Grade 1 retrolisthesis of C5 on C6. Moderate intervertebral disc space narrowing at the C5-C6 and C6-C7 levels. Grade 1 anterolisthesis of C3 on C4 and C4 on C5 which improves with extension. Moderate degenerative change scattered throughout the cervical facet joints and uncovertebral joints. Predental space is within normal limits. No prevertebral soft tissue swelling. Bones appear osteopenic. IMPRESSION: 1. No compression fracture in the cervical spine. 2.Reversal of the normal cervical lordosis centered at the C5 level. 3.Grade 1 retrolisthesis of C5 on C6. 4. Moderate intervertebral disc space narrowing at the C5-C6 and C6-C7 levels. 5.Grade 1 anterolisthesis of C3 on C4 and C4 on C5 which improves with extension. If symptoms persist or worsen, consider an MRI of the cervical spine for further assessment. Reviewed, dictated and finalized at location Q. IMPRESSION: 1. No compression fracture in the cervical spine. 2.Reversal of the normal cervical lordosis centered at the C5 level. 3.Grade 1 retrolisthesis of C5 on C6. 4. Moderate intervertebral disc space narrowing at the C5-C6 and C6-C7 levels. 5.Grade 1 anterolisthesis of C3 on C4 and C4 on C5 which improves with extensio n. If symptoms persist or worsen, consider an MRI of the cervical spine for furthe r assessment.
--- NOTE | 2025-06-07 13:52 | ED_ITS ---
HPI - Female Genitourinary General Chief complaint: Urogenital-Female Stated complaint: Uti Symptoms/Neck Pain Source: patient and RN notes reviewed Mode of arrival: ambulatory Limitations: no limitations History of Present Illness HPI Narrative: Patient is a 59-year-old female who presents to the [facility] with complaints of possible UTI. Patient reports history of frequent UTIs. She states that she is experiencing urinary frequency and urgency. She reports dysuria but denies hematuria. Denies pelvic or flank pain. States that her symptoms feel similar to that she has experienced in the past with UTIs. She denies recent fevers. Patient also reports posterior neck pain. She states that she has had this pain for weeks, but it increased in severity over the weekend. She denies known injury to her neck. Denies numbness. Related Data Home Medications ?Medication ?Instructions ?Recorded ?Confirmed ?Last Taken ?Type benztropine 2 mg tablet 2 mg PO BID PRN involuntary 04/18/22 06/07/25 Unknown History movement prazosin 5 mg capsule 10 mg PO HS 04/18/22 5 Unknown History chlorpromazine 100 mg tablet 100 mg PO Q12H 03/27/23 0 06/07/25 Unknown History gabapentin 300 mg capsule 600 mg PO TID 05/25/2306/07 Unknown History efjvxojdkw-jiuxbcebyqrfq-vmfzzrmm 1 tablet PO Q8H PRN Headache 07/26/24 06/07/25 07/24/24 History 50 mg-325 mg-40 mg tablet benztropine 1 mg tablet 1 mg PO Q12H 01/31/25 Unknown History buspirone 30 mg tablet 30 mg PO Q12H 01/31/2506/07 Unknown History ondansetron 4 mg disintegrating 4 mg translingual TID PRN nausea 01/31/25 06/07/25 Unknown History tablet and vomiting sertraline 100 mg tablet 200 mg PO DAILY 01/31/25 Unknown History cyclobenzaprine 10 mg tablet 10 mg PO Q12H 05/16/25 Unknown History hydrocodone 5 mg-acetaminophen 325 1 tablet PO Q8H 04/0206/07/25 Unknown History mg tablet trazodone 50 mg tablet 50 mg PO HS 09/07/25 09/29/2 5 Unknown History Allergies Allergy/AdvReac Type Severity Reaction Status Date / Time grass pollen Allergy Intermediate Hives Verified 06/07/25 14:36 amoxicillin (From Augmentin) Allergy Hives Verified 06/07/25 14:36 asenapine (From Saphris) Allergy Hives Verified 06/07/25 14:36 bacitracin (From Neosporin Allergy Rash Verified 06/07/25 14:36 ([id number])) clavulanic acid (From Allergy Hives Verified 06/07/25 14:36 Augmentin) erythromycin base Allergy Hives Verified 06/07/25 14:36 latex Allergy Rash Verified 06/07/25 14:36 neomycin (From Neosporin Allergy Rash Verified 06/07/25 14:36 ([id number])) polymyxin B (From Neosporin Allergy Rash Verified 06/07/25 14:36 ([id number])) risperidone (From Risperdal) Allergy Hives Verified 06/07/25 14:36 tramadol (From Ultram) Allergy Rash Verified 06/07/25 14:36 haloperidol (From Haldol) AdvReac Severe Swelling Verified 06/07/25 14:36 of Lip/Tongue/Throat ciprofloxacin AdvReac Vomiting Verified 06/07/25 14:36 ibuprofen AdvReac Vomiting Verified 06/07/25 14:36 Steriod AdvReac Agitated Uncoded 05/16/25 12:53 Review of Systems Review of Systems: CONSTITUTIONAL: Denies fever, chills, or sweats. EYES: Denies visual changes, redness, or discharge. ENT: Denies otalgia and sore throat CARDIOVASCULAR: Denies chest pain, palpitations, or edema. RESPIRATORY: Denies cough or dyspnea. GASTROINTESTINAL: Denies abdominal pain, nausea, vomiting, or diarrhea. GENITOURINARY: Reports dysuria, urinary frequency, urinary urgency.. SKIN: Denies rash or itching. MUSCULOSKELETAL: Reports neck pain. NEUROLOGIC: Denies headache, numbness, or weakness. Pertinent positives per HPI. [facility] Past Medical History Medical History Bipolar mood disorder Methamphetamine use GERD (gastroesophageal reflux disease) Major depression with psychotic features Carpal tunnel syndrome of right wrist Carcinoma of right ureter SVT (supraventricular tachycardia) Hepatitis C Alcohol abuse Schizoaffective disorder [place] toxicity Due to overdose/suicide attempt Requiring temporary dialysis Tobacco dependence Chronic obstructive pulmonary disease Distal radial fracture December 2022 Ankle fracture, lateral malleolus, closed December 2022 Seizure Migraine Anxiety Suicide attempt Multiple hospitalizations for suicide attempt with history of cutting Surgical History Surgical History History of right salpingo-oophorectomy Due to ectopic Status post lumbar discectomy (~1999) L5-S1 Status post open reduction with internal fixation of fracture Cervical spine fracture History of ureterostomy History of kidney surgery H/O dilation and curettage H/O tubal ligation History of tonsillectomy H/O foot surgery 2021 X2 H/O: hysterectomy 2000 hysterectomy with left oophorectomy Family History Family History Father Alcoholism Grandparent Diabetes mellitus Hypertension Heart disease Mother Kidney disease Grandparent Alcoholism Social History Social History Social History: Surrogate medical decision maker: Landy Silva, mother. Code status: Full code. Smoking packs per day: 1.5 Smoking cigarettes per day: 30.0 Years smoked: 45 Smoking pack-years: 67.50 Smoking status: Current every day smoker Tobacco type: cigarettes Second hand tobacco smoke exposure: No Alcohol intake: unknown Substance use: current Substance use type: painkillers and prescription drug Other substance usage details: Fioricet and [place] Last use: 01/30/2025 Lack of Transportation: No Lack of Food: Never True Current Housing: I Have Housing Concerned About Future Housing: No Difficulty Paying Gas/Electric Bills: No Difficulty Paying for Meds: No Currently Unemployed: No Education: High School Diploma/GED Difficulty w/ Childcare or Family Care: No Living arrangements: with family Additional living arrangements comments: Lives with mother in [place]. Occupation/Education: unemployed Additional occupation/education comments: Disabled. Spiritual care concerns: No Comments At the time of my signature, I reviewed and agree with the nursing past medical, surgical, social, and family history. There is no relevant family history pertinent to the patient complaint. Exam Narrative: GENERAL: This is a well-nourished, well-developed patient, in no apparent distress. HEAD: normocephalic, atraumatic. EYES: PERRL. Sclera clear/white. Vision is grossly intact. EARS: External ears normal, auditory canals clear and without drainage, TMs normal without perforation. Hearing grossly intact. NOSE: External nose normal with no obvious nasal discharge, nares without redness, no rhinorrhea. THROAT: Mucous membranes moist, posterior pharynx clear. NECK: Neck supple, non-tender without lymphadenopathy, masses or thyromegaly. Mild cervical tenderness. Normal range of motion. CARDIOVASCULAR: Regular rate and rhythm without murmurs, gallops, or rubs. RESPIRATORY: Clear to auscultation. Breath sounds equal bilaterally. No wheezes, rales, or rhonchi. GASTROINTESTINAL: Abdomen soft, non-tender, nondistended. Bowel sounds are active. No hepato-splenomegaly, or palpable masses. No guarding. SKIN: warm, intact with no suspicious lesions or rash, good texture and turgor. NEURO: awake, alert, and oriented to person, place and time. There were no obvious focal neurologic abnormalities. EXTREMITIES: No clubbing, cyanosis, or edema. No joint tenderness, effusion, or edema noted. BACK: Nontender without deformity or crepitance. No flank tenderness. Course Course Level of Care: Express Care Visit Vital Signs Vital signs: Vital Signs Temperature 97.8 F 06/07/25 14:01 Pulse Rate 97 06/07/25 14:01 Respiratory Rate 16 06/07/25 14:01 Blood Pressure 120/79 06/07/25 14:01 Pulse Oximetry 99 06/07/25 14:01 Oxygen Delivery Room Air 06/07/25 14:01 Temperature 97.8 F 06/07/25 14:01 Pulse Rate 97 06/07/25 14:01 Respiratory Rate 16 06/07/25 14:01 Blood Pressure 120/79 06/07/25 14:01 Pulse Oximetry 99 06/07/25 14:01 Oxygen Delivery Room Air 06/07/25 14:01 Reviewed MDM - Female Genitourinary MDM Narrative Medical decision making narrative: We will send a urine culture off to the lab; if the culture identifies an organism that the prescribed antibiotic will not treat, you will receive a phone call from an urgent care staff member and an appropriate antibiotic will be prescribed. -Your symptoms should begin to improve within a day of starting antibiotics. But you should finish all the antibiotic pills you get. Otherwise your infection might come back. -Also recommend: drink more fluid. It might help flush out germs, and it does no harm -Tylenol/ibuprofen as needed for pain -Follow-up with your primary care provider for urine recheck OR if your symptoms persist, change or worsen significantly before you can contact your personal physician then please, without delay, go to the emergency department for further evaluation. Use the RICE method at home. May take ibuprofen and/or Tylenol if needed. If symptoms persist in 1 week after conservative treatment, follow-up with specialist. Differential Diagnosis Differential diagnosis: Likely urinary tract infection, vaginitis, cystitis and other (cervical strain, cervical herniated disc) Lab Data Attestation: I reviewed the patient's lab results. Labs: Lab Results 06/07/25 Range/Units 14:14 POC Urine Color Yellow POC Urine Clarity Cloudy POC Urine pH 6.0 POC Ur Specif [place] 1.025 POC Urine Protein 1+ (Negative) POC Ur Glucose (UA) Negative (Negative) POC Urine Ketones Negative (Negative) POC Urine Blood Negative (Negative) POC Urine Nitrite Positive (Negative) POC Urine Bilirubin 1+ (Negative) POC Urine Urobilinogen 0.2 POC U Leukocyte Esteras 1+ (Negative) Imaging Data Attestation: I personally reviewed and interpreted this imaging study as follows: Radiologist's impression: [place] [id number] [facility] [address] XRay Report Signed Patient: Mahnaz Oseguera : 1965 MR#: [id number] Age: 59 Acct:[id number] Loc: [facility] ADM Date: 06/07/25Attending Dr: Ordering Physician: Beba Hale APRN Date of Service: 06/07/25 Procedure(s): XR cervical spine 4-5V Accession Number(s): [id number] cc: Beba Hale APRN; James, Edmundo Coffman MD~ XR cervical spine 4-5V INDICATION: Pain. Fell 2 weeks ago TECHNIQUE: 5 views of the cervical spine. Correlation: CT cervical spine 01/31/2025 FINDINGS: Cervical vertebral body heights are within normal limits. No compression fracture in the cervical spine. Reversal of the normal cervical lordosis centered at the C5 level. Grade 1 retrolisthesis of C5 on C6. Moderate intervertebral disc space narrowing at the C5-C6 and C6-C7 levels. Grade 1 anterolisthesis of C3 on C4 and C4 on C5 which improves with extension. Moderate degenerative change scattered throughout the cervical facet joints and uncovertebral joints. Predental space is within normal limits. No prevertebral soft tissue swelling. Bones appear osteopenic. IMPRESSION: 1. No compression fracture in the cervical spine. 2.Reversal of the normal cervical lordosis centered at the C5 level. 3.Grade 1 retrolisthesis of C5 on C6. 4. Moderate intervertebral disc space narrowing at the C5-C6 and C6-C7 levels. 5.Grade 1 anterolisthesis of C3 on C4 and C4 on C5 which improves with extension. If symptoms persist or worsen, consider an MRI of the cervical spine for further assessment. Reviewed, dictated and finalized at location Q. Please be advised this is a medical document. It is intended for [id number] communication. It is written in medical language and may contain unfamiliar abbreviations or verbiage. Medical documents are intended to carry relevant information, facts as evident, and the clinical opinion of the practitioner at the time of the encounter. This report may have been done utilizing a voice recognition system. Attempts have been made to correct errors. However, there may be uncorrected grammatical, spelling, and recognition errors present. The file time of this note does not necessarily represent the time of service. Dictated By: Mick Valderrama MD 06/07/25 1448 Signed By: <Electronically signed by Mick Valderrama MD in OV> 06/07/25 1451 Critical Care Time Critical Care Time Critical Care Time: No Discharge Plan Discharge Clinical Impression: Cervical spine pain Acute cystitis Qualifiers: Hematuria presence: without hematuria Qualified Code(s): N30.00 - Acute cystitis without hematuria Patient Disposition: Home Condition: Stable Instructions: Antibiotic Form, Urinary Tract Infection in Women (ED), P.R.I.C.E. Treatment (ED), Acute Neck Pain (ED) Additional Instructions: We will send a urine culture off to the lab; if the culture identifies an organism that the prescribed antibiotic will not treat, you will receive a phone call from an urgent care staff member and an appropriate antibiotic will be prescribed. -Your symptoms should begin to improve within a day of starting antibiotics. But you should finish all the antibiotic pills you get. Otherwise your infection might come back. -Also recommend: drink more fluid. It might help flush out germs, and it does no harm -Tylenol/ibuprofen as needed for pain -Follow-up with your primary care provider for urine recheck OR if your symptoms persist, change or worsen significantly before you can contact your personal physician then please, without delay, go to the emergency department for further evaluation. Regarding your neck, use the RICE method at home. May take ibuprofen and/or Tylenol if needed. If symptoms persist in 1 week after conservative treatment, follow-up with specialist. Patient Language: American Prescriptions: New cephalexin 500 mg capsule 500 mg PO Q8H 7 Days Qty: 21 0RF fluconazole 150 mg tablet 150 mg PO ONCE Qty: 1 0RF Rx Instructions: as a single dose No Action chlorpromazine 100 mg tablet 100 mg PO Q12H uervybisbb-lycofjwnckdes-fmyu 50-325-40 mg Tablet 1 tablet PO Q8H PRN (Reason: Headache) benztropine 1 mg tablet 1 mg PO Q12H buspirone 30 mg tablet 30 mg PO Q12H ondansetron 4 mg tablet,disintegrating 4 mg translingual TID PRN (Reason: nausea and vomiting) sertraline 100 mg tablet 200 mg PO DAILY prazosin 5 mg capsule 10 mg PO HS benztropine 2 mg tablet 2 mg PO BID PRN (Reason: involuntary movement) gabapentin 300 mg capsule 600 mg PO TID cyclobenzaprine 10 mg tablet 10 mg PO Q12H hydrocodone-acetaminophen 5-325 mg tablet 1 tablet PO Q8H trazodone 50 mg tablet 50 mg PO HS Follow-up/Referrals: James,Billy Coffman MD [Primary Care Provider] Time of Disposition: 14:48
[2025-06-07 14:01] VITALS: BP 120/79; PULSE 97; RESP 16; TEMP 36.6; O2SAT 99
[2025-06-07 14:20] LABS: EDUAAPPEAR Cloudy; EDUABILI 1+ (Negative); EDUABLOOD Negative (Negative); EDUACOLOR1 Yellow; EDUAGLUCOSE Negative (Negative); EDUAKETONE Negative (Negative); EDUALEUKO 1+ (Negative); EDUANITRATE Positive (Negative); EDUAPH 6.0; EDUAPROTEIN 1+ (Negative); EDUASPGRAVITY 1.025; EDUAUROBILI 0.2
== END 2025-06-07 15:06 | disposition home or self-care (01) ==
PROVIDERS: Emergency Provider Nurse Practitioner; PCP Internal Medicine
DX: M54.2 Cervicalgia (principal); N30.00 Acute cystitis without hematuria; F17.210 Nicotine dependence, cigarettes, uncomplicated; K21.9 Gastro-esophageal reflux disease without esophagitis; G40.909 Epilepsy, unspecified, not intractable, without status epilepticus; F41.9 Anxiety disorder, unspecified; F25.9 Schizoaffective disorder, unspecified; F32.9 Major depressive disorder, single episode, unspecified
CPT/HCPCS: 72050; 81003; 87086; 87186; 99213; G0463

== ENCOUNTER 2025-06-12 22:00 | Inpatient (IN) | payer MEDICARE, MEDICAID, SELFPAY ==
--- NOTE | ~2025-06-12 | XR_ITS ---
Examination: XR chest 1V portable Clinical History: overdose, CHEST PAIN Comparison: 05/15/2025 Technique: Portable AP Findings: Heart size normal. Mild bibasilar atelectasis. No acute bony abnormality. IMPRESSION: 1. No significant acute cardiopulmonary findings given portable technique. Consider PA and lateral films with deep inspiration when able. Reviewed, dictated and finalized at location R. IMPRESSION: 1. No significant acute cardiopulmonary findings given portable technique. Con specimen technician PA and lateral films with deep inspiration when able.
--- NOTE | ~2025-06-12 | CT_ITS ---
CT HEAD NON-CONTRAST Clinical History: ams Comparison: CT head 05/15/2025 Technique: Unenhanced axial images skull base to vertex Coronal, sagittal reformats CT images acquired with automatic exposure control for dose reduction DLP: 681 mGy-cm Findings: Sulci, ventricles: Unremarkable. No intracerebral hemorrhage. No evidence acute territorial infarct. No mass effect, midline shift. Bony calvarium intact. Visualized paranasal sinuses: Clear. Mastoid air cells: Clear. IMPRESSION: 1. No acute intracranial findings. Reviewed, dictated and finalized at location R.
--- OUTSIDE RECORDS SUMMARY | 2025-06-12 22:22 | XMS_ITS | Patient Health Record ---
Author Organization [facility] Address [address] [place] [address] Care Team Providers Care Strategic Planning Analyst Name Role Phone David Jenny Primary Care Provider Shelly Gil Unavailable [phone] Chanda Reynolds Unavailable [phone] Juanis Watson Unavailable [phone] Bea Jenkins Unavailable [phone] Allergies Allergen (clinical drug ingredient) Drug/Non Drug [...] day; Duration: 30 days Blister packs Active Prazosin HCl 5 MG 2 capsules at bedtime Orally Once a day; Duration: 30 days Blister packs Active Cyclobenzaprine HCl 10 MG 1 tablet Orally twice a day Not-Taking Benztropine Mesylate 2 MG 1 tablet Orally at bedtime; Duration: 30 days blister packs Active chlorproMAZINE HCl 25 MG 1 tablet Orally in the morning; Duration: 30 days Blister packs 10/20/2024 Not-Taking Docusate Sodium Not- Taking busPIRone HCl 30 MG 2 tablets Orally 3 times a day; Duration: 30 days take 2 tablets three times a day for a TOTAL OF 60 MG DAILY Blister packs Active Tamsulosin HCl Not-T aking chlorproMAZINE HCl 100 MG 1 tablet Orally Twice a day; Duration: 30 days Blister packs Active oxyBUTYnin Not-Takin g Gabapentin 600 MG 1 tablet Orally at bedtime Active Faompbdbsf-Tgmaqdk-Sxua eine 50-325-40 MG 1 capsule as needed Orally every 4 hrs Active Potassium Active Ondansetron 4 MG 1 tablet on the tongue and allow to dissolve Orally Once a day Active traZODone HCl 100 MG 1 tablet at bedtime as needed Orally Once a day; Duration: 30 days blister packs Active HYDROcodone-Acetaminoph en 5-325 MG 1 tablet as needed Orally every 6 hrs Active Social History Tobacco Use: Social History Observation Description Date Details (start date - stop date) Current Smoker NA - NA Tobacco Control (Standard) Question Answer Notes Tobacco use: Current smoker How often do you smoke cigarettes? Every day How many cigarettes a day do you smoke? 6-10 How soon after you wake up do you smoke your fir st cigarette? Within 5 minutes Are you interested in quitting? 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) 024 Active confirmed Problem Nightmares (123091259) Nightmares (F51.5) 024 Active confirmed Problem Anxiety state (662635231) Anxiety disorder, unspecified type (F41.9) 025 Active confirmed Problem Tobacco use (280901957) Tobacco use disorder (F17.200) 024 Active confirmed Vital Signs Heart Rate 93 /min 05/27/2025 Temperature 97.7 degrees Fahrenheit 05/27/2025 Respiratory Rate 16 /min 05/27/2025 Blood pressure diastolic 58 mm Hg 05/27/2025 Oximetry 93 % 05/27/2025 Height 63 in 05/27/2025 Blood pressure systolic 99 mm Hg 05/27/2025 Weight 172.6 lbs 05/27/2025 BMI 30.57 kg/m2 05/27/2025 Encounters Encounter Location Date Provider Diagnosis [facility] [place] [address] [address] 07/23/2024 Kyria Watson Mood disorder F39 ; Tobacco use disorder F17.200 ; Nightmares F51.5 and Insomnia due to mental disorder F51.[address] [address] 09/03/2024 Kyria Watson Mood disorder F39 ; Tobacco use disorder F17.200 ; Nightmares F51.5 and Insomnia due to mental disorder F51.05 [facility] [address] [address] 10/20/2024 Kyria Watson Mood disorder F39 ; Tobacco use disorder F17.200 ; Nightmares F51.5 ; Insomnia due to mental disorder F51.05 and Anxiety disorder, unspecified type F41.[address] [address] 12/08/2024 Kydoca Walter Mood disorder F39 ; Tobacco use disorder F17.200 ; Nightmares F51.5 ; Insomnia due to mental disorder F51.05 and Anxiety disorder, unspecified type F41.[address] [address] 12/09/2024 Bea Jenkins Mood disorder F39 [facility] [address] [place] [address] 02/10/2025 Kyria Watson Mood disorder F39 ; Tobacco use disorder F17.200 ; Nightmares F51.5 ; Insomnia due to mental disorder F51.05 and Anxiety disorder, unspecified type F41.9 [facility] [address] [place] [address] 03/25/2025 Jenny David Mood disorder F39 ; Tobacco use disorder F17.200 ; Nightmares F51.5 ; Insomnia due to mental disorder F51.05 and Anxiety disorder, unspecified type F41.9 [facility] [address] [address] 04/29/2025 Jenny David Over weight E66.3 ; Mood disorder F39 ; Tobacco use disorder F17.200 ; Nightmares F51.5 ; Insomnia due to mental disorder F51.05 ; Anxiety disorder, unspecified type F41.9 and Therapeutic drug monitoring Z51.81 [facility] [address] [address] 05/27/2025 Jenny David Over weight E66.3 ; Mood disorder F39 ; Tobacco use disorder F17.200 ; Nightmares F51.5 ; Insomnia due to mental disorder F51.05 and Anxiety disorder, unspecified type F41.9 [facility] [address] [address] 08/25/2024 Chanda Reynolds Mood disorder F39 [address] [address] 11/11/2024 Juanis Watson [address] [place] [address] 12/09/2024 Juanis Watson [address] [place] [address] 01/15/2025 Juanis Watson [address] [place] [address] 01/20/2025 Juanis Wtason Mood disorder F39 and Nightmares F51.[address] [place] [address] 01/26/2025 Juanis Watson Mood disorder F39 and Nightmares F51.5 [facility] [address] [place] [address] 04/05[facility] [address] [place] [address] 04/22/2025 Jenny David Mood disorder F39 and Nightmares F51.5 Assessments Encounter Date Diagnosis (ICD Code) Assessment Notes Treatment Notes Treatment Clinical Notes Section Notes 07/23/2024 Mood disorder (ICD-10 - F39) Consideration [...] type 04/29/2025 Over weight (ICD-10 - E66.3) 05/27/2025 Over weight (ICD-10 - E66.3) 03/25/2025 Tobacco use disorder (ICD-10 - F17.200) 04/22/2025 Nightmares (ICD-10 - F51.5) 04/29/2025 Mood disorder (ICD-10 - F39) Consideration to Borderline Personality Disorder vs Schizoaffective d/o depressed type 05/27/2025 Mood disorder (ICD-10 - F39) Consideration to Borderline Personality Disorder vs Schizoaffective d/o depressed type 01/26/2025 Nightmares (ICD-10 - F51.5) 12/08/2024 Tobacco use disorder (ICD-10 - F17.200) 02/10/2025 Tobacco use disorder (ICD-10 - F17.200) 01/20/2025 Nightmares (ICD-10 - F51.5) 10/20/2024 Nightmares (ICD-10 - F51.5) 09/03/2024 Tobacco use disorder (ICD-10 - F17.200) 07/23/2024 Nightmares (ICD-10 - F51.5) 07/23/2024 Insomnia due to mental disorder (ICD-10 - F51.05) Today's visit: Patient is a 58-year-old female who presents for a psychiatric follow-up over phone and is located in [place]. Previously seen on 06/10/2024 and during this [...] or be administered own oral medications per [facility] protocols. Provided informed consent with understanding of [...] follow-up over phone and is located in [place]. Previously seen on 09/03/2024 and during this [...] or be administered own oral medications per [facility] protocols. Provided informed consent with understanding of side effects, adverse effects, risks and benefits as well as alternative treatments as previously discussed and with the above recommended medications & other aspects of the treatment program. Agrees to return sooner if symptoms worsen or suicidal or homicidal ideations occur. 12/08/2024 Nightmares (ICD-10 - F51.5) 02/10/2025 Nightmares (ICD-10 - F51.5) 05/27/2025 Tobacco use disorder (ICD-10 - F17.200) 03/25/2025 Nightmares (ICD-10 - F51.5) 04/29/2025 Tobacco use disorder (ICD-10 - F17.200) 04/29/2025 Nightmares (ICD-10 - F51.5) 05/27/2025 Nightmares (ICD-10 - F51.5) 03/25/2025 Insomnia due to mental disorder (ICD-10 - F51.05) 02/10/2025 Insomnia due to mental disorder (ICD-10 - F51.05) Today's visit: Patient is a 59-year-old female who presents for a psychiatric follow-up in office and is located in [place]. Previously seen on 12/08/24 and during this [...] or be administered own oral medications per [facility] protocols. Provided informed consent with understanding of [...] follow-up over phone and is located in [place]. Previously seen on 10/20/2024 and during this [...] therapy; she declines at this time. Contacted [facility] behavioral health to reach out to patient for safety planning. No acute safety concerns the time of this appt, she is agreeable to treatment plan and was provided an opportunity to ask questions. May self-administer medications or be administered own oral medications per [facility] protocols. Provided informed consent with understanding of [...] follow-up over phone and is located in [place]. Previously seen on 07/23/2024 and during this [...] form increase in Zoloft, will increase again [id number] daily to target depression and anxiety. Will [...] or be administered own oral medications per [facility] protocols. Provided informed consent with understanding of [...] side effects or need for dosage change. 05/27/2025 Insomnia due to mental disorder (ICD-10 - F51.05) 05/27/2025 Anxiety disorder, unspecified type (ICD-10 - F41.9) 04/29/2025 Anxiety disorder, unspecified type (ICD-10 - F41.9) 04/29/2025 Therapeutic drug monitoring (ICD-10 - Z51.81) 03/25/2025 Other May self-administer medications or be administered own oral medications per [facility] protocols. Provided informed consent with understanding of side effects, adverse effects, risks and benefits as well as alternative treatments as previously discussed and with the above recommended medications & other aspects of the treatment program. Agrees to return sooner if symptoms worsen or suicidal or homicidal ideations occur. Medication Hx: -Benztropine was discontinued at the [facility] -Hydroxyzine Pamoate (helpful for the first couple weeks, made my anxiety worse) -Risperdal (allergy) -Haldol (allergy) -Zoloft (felt like crap) -Kermit (shaking) -Fluoxetine -Desipramine Plan: -Switch Buspirone to 10 mg 2 tablets by mouth TID (TDD 60 mg) -Continue Chlorpromazine 100 mg BID -Continue Sertraline 200 mg once daily -Continue Prazosin 5 mg 2 capsules QHS TOTAL 10 MG -Increase Benztropine to 1 mg *labs reviewed from [facility] Treatment Plan: -Next visit increase Benztropine to 1 mg BID and Prazosin to 11 mg QHS -Follow up: 4 weeks [] Hard Rx handed to patient [] Rx phoned into pharmacy [x] Rx faxed/e-prescribed into pharmacy [x] PDMP Reviewed [] [facility] Reviewed Encouraged by Jenny Hernandez [facility] to: [x] consider utilizing therapist/counselor /social service agency director/psychologist , referral given [] continue with therapist/counselor /social service agency director/psychologist Psychoeducation: -Treatment options discussed in detail with patient/guardian verbalizing understanding of treatment rationales. -Side effects and benefits of all medications prescribed discussed at length between psychiatric prescribing provider and patient/guardian along with the risks associated of vdob-be-heeu interactions, including but not limited to prescription [...] engaged in treatment plan with Jenny Hernandez [facility]. -Perceiving complete understanding of rationale by patient/guardian and willingness to adhere to formulated plan of care by prescriber with patient/guardian buy-in, willingness to participate actively in plan of care and willing to take charge of own care. -Although geared for female patients, all patients/guardians are informed by prescribing provider of risks of medications that could potentially be taken by female/women within their hopi of influence and that women who use [...] a should occur, to consult with provider, FISCAL ANALYST and/or Nurse Bed Spring Maker to determine if prescribed medications should or [...] or be administered own oral medications per [facility] protocols. Provided informed consent with understanding of side effects, adverse effects, risks and benefits as well as alternative treatments as previously discussed and with the above recommended medications & other aspects of the treatment program. Agrees to return sooner if symptoms worsen or suicidal or homicidal ideations occur. Medication Hx: -Benztropine was discontinued at the [facility] -Hydroxyzine Pamoate (helpful for the first couple weeks, made my anxiety worse) -Risperdal (allergy) -Haldol (allergy) -Zoloft (felt like crap) -Kermit (shaking) -Fluoxetine -Desipramine Medication Plan: -Continue Buspirone [...] [] [facility] Reviewed Encouraged by Jenny Hernandez [facility]- to: [] consider utilizing therapist/counselor /social service agency director/psychologist , referral given [] continue with therapist/counselor /social service agency director/psychologist Psychoeducation: -Treatment options discussed in detail with patient/guardian verbalizing understanding of treatment rationales. -Side effects and benefits of all medications prescribed discussed at length between psychiatric prescribing provider and patient/guardian along with the risks associated of uboz-ov-uhun interactions, including but not limited to prescription [...] engaged in treatment plan with Jenny Hernandez [facility]. -Perceiving complete understanding of rationale by patient/guardian and willingness to adhere to formulated plan of care by prescriber with patient/guardian buy-in, willingness to participate actively in plan of care and willing to take charge of own care. -Although geared for female patients, all patients/guardians are informed by prescribing provider of risks of medications that could potentially be taken by female/women within their hopi of influence and that women who use [...] a should occur, to consult with provider, FISCAL ANALYST and/or Nurse Bed Spring Maker to determine if prescribed medications should or [...] the importance of handling stress, was discussed. 05/27/2025 Other May self-administer medications or be administered own oral medications per [facility] protocols. Provided informed consent with understanding of side effects, adverse effects, risks and benefits as well as alternative treatments as previously discussed and with the above recommended medications & other aspects of the treatment program. Agrees to return sooner if symptoms worsen or suicidal or homicidal ideations occur. Medication Hx: -Benztropine was discontinued at the [facility] -Hydroxyzine Pamoate (helpful for the first couple weeks, made my anxiety worse) -Risperdal (allergy) -Haldol (allergy) -Zoloft (felt like crap) -Kermit (shaking) -Fluoxetine -Desipramine Medication Plan: -Continue Buspirone to 10 mg 2 tablets by mouth TID (TDD 60 mg) -Continue Chlorpromazine 100 mg BID -Continue Sertraline 200 mg once daily -Continue Prazosin 5 mg 2 capsules QHS TOTAL 10 MG -Switch Benztropine to 2 mg QHS -Increase Trazodone to 100 mg QHS PRN *reminded pt to get labs drawn -Follow up: 4 weeks [] Hard Rx handed to patient [] Rx phoned into pharmacy [] Rx faxed/e-prescribed into pharmacy [] PDMP Reviewed [] [facility] Reviewed [facility] to: [] consider utilizing therapist/counselor /social service agency director/psychologist , referral given [] continue with therapist/counselor /social service agency director/psychologist Psychoeducation: -Treatment options discussed in detail with patient/guardian verbalizing understanding of treatment rationales. -Side effects and benefits of all medications prescribed discussed at length between psychiatric prescribing provider and patient/guardian along with the risks associated of mfqa-ft-viwj interactions, including but not limited to prescription [...] engaged in treatment plan with Jenny Hernandez [facility]. -Perceiving complete understanding of rationale by patient/guardian and willingness to adhere to formulated plan of care by prescriber with patient/guardian buy-in, willingness to participate actively in plan of care and willing to take charge of own care. -Although geared for female patients, all patients/guardians are informed by prescribing provider of risks of medications that could potentially be taken by female/women within their hopi of influence and that women who use [...] a should occur, to consult with provider, FISCAL ANALYST and/or Nurse Bed Spring Maker to determine if prescribed medications should or [...] Panel* 14 Panel Urine Drug Screen 04/29/2025 Insurance Providers Payer Name Payer Address Payer Phone Subscriber Number Group Number Insured Name Patient Relationship to Insured Coverage Start Date Coverage End Date MEDICARE PART A [address] [place] [address] [id number] Mahnaz Oseguera Self - patient is the insured 3 MEDICAID [address] [place] [address] [id number] Mahnaz Oseguera Self - patient is the insured 3 MEDICARE BEHAV MANAGER LOCATION [address] [place] [address] [id number] Mahnaz Oseguera Self - patient is the insured 5 Medical (General) History Medical History History ICD Code Uretal cancer - resolved Constipation Surgical History Surgery Date(Month/Year) back surgery 1999 hysterectomy 2000 foot surgery cancer 07/2023 Hospitalization History Reason Date(Month/Year) Medical inpatient for UTI, low potassium .[facility] 01/2025 Psychiatric inpatient in [place], not taking my medication 1996 Psychiatric inpatient for OD on medicine s for trying to get high Jul 2023 Psychiatric inpatient for I over dosed , [facility] for 3 days Sep 2023 foot surgery hysterectomy 2000 back surgery 1999
--- OUTSIDE RECORDS SUMMARY | 2025-06-12 22:22 | XMS_ITS | Clinical Summary ---
Author Organization [facility] Address [address] [place] [id number] Care Team Providers Care [employer] Name Role Phone Neil Barbour MD Primary Care Provider Unavail able Allergies Active Allergy Reactions Criticality Noted Date Comments Aminoglycosides Unknown 10/19/2012 unk Amoxicillin Hives 03/06/2025 Amoxicillin-Pot Clavulanate Hives Medium 07/25/2023 Asenapine Hives 03/06/2025 Udmdyok-Ioibzwtn-Jrydhrzcn -Hc Rash Low 03/06/2025 Bacitracin Unknown 10/19/2012 [...] unknown Tuberculin, Ppd Unknown 10/19/2012 unk Medications No known medications Encounters Date Type Department Care Team Description 04/04/2025 4:41 PM CDT - 04/05/2025 5:[address] [facility] Emergency Room [address] [place] [address] Fiorella Mcintosh MD Brahmavar, Ameet S, MD Hughes, Kellie D, MD Psychosocial Complaints Discharge Disposition: Home or Self Care (Routine Discharge) 04/04/2025 Travel from Last 3 Months Social History Tobacco Use Types Packs/Day Years Used Date Smoking Tobacco: Never Assessed Comments No Sex and Gender Information Value Date Recorded Sex Assigned at Female 04/04/2025 7:11 PM CDT Legal Sex Female 10:03 PM [employer]AIL [employer] Gender Identity Female 04/04/2025 7:11 PM CDT [...] of 2) 2016 COVID-19 Vaccine (1 - 2023-2 5 season) 2025 DTaP, Tdap and Td Vaccines ( 2 [...] W/DIFF AUTOMATED STAT 04/05/2025 12:51 AM CDT from Last 3 Months Results * (ABNORMAL) DRUG SCREEN RAPID (04/05/2025 3:58 AM CDT) AMPHETAMINE (U) DETECTED(A) NONE DETECTED 04/05/2025 4:37 AM CDT [facility] BARBITURATES SCREEN (U) DETECTED(A) NONE DETECTED 04/05/2025 4:37 AM CDT [facility] BENZODIAZEPINES SCREEN (U) DETECTED(A) NONE DETECTED 04/05/2025 4:37 AM CDT [facility] BUPRENORPHINE SCREEN (U) NONE DETECTED NONE DETECTED 04/05/2025 4:37 AM CDT [facility] COCAINE METABOLITES (U) NONE DETECTED NONE DETECTED 04/05/2025 4:37 AM T [facility] METHAMPHETAMINE (U) DETECTED(A) NONE DETECTED 04/05/2025 4:37 AM CDT [facility] METHADONE (U) NONE DETECTED NONE DETECTED 04/05/2025 4:37 AM CDT [facility] OPIATE SCREEN (U) DETECTED(A) NONE DETECTED 04/05/2025 4:37 AM CDT [facility] OXYCODONE SCREEN (U) NONE DETECTED NONE DETECTED 04/05/2025 4:37 AM T [facility] PHENCYCLIDINE PCP (U) NONE DETECTED NONE DETECTED 04/05/2025 4:37 AM T [facility] CANNABINOIDS SCREEN (U) NONE DETECTED NONE DETECTED 04/05/2025 4:37 AM T [facility] TRICYCLIC ANTIDEPRESSANT SCREEN (U) NONE DETECTED NONE DETECTED 04/05/2025 4:37 AM T [facility] Comment: NOTE: RESULTS OF THIS DRUG [...] SPECIMEN / Unknown 04/05/2025 3:58 AM CDT us Jordan S Brahmavar MD URINE ORDERABLES Final Resu lt [facility] [address] [place] [address], [place] [phone] * (ABNORMAL) URINALYSIS, AUTO, COMPLETE (04/05/2025 3:58 AM CDT) COLOR (U) DARK YELLOW 04/05/2025 4:39 AM CDT [facility] TRANSPARENCY CLOUDY 04/05/2025 4:39 AM CDT [facility] SPECIFIC GRAVITY (U) 1.025 1.000 - 1.030 04/05/2025 4:39 AM CDT [facility] U PH 6.0 5.0 - 9.0 04/05/2025 4:39 AM CDT [facility] LEUKOCYTES (U) 1+(A) NEGATIVE 04/05/2025 4:39 AM CDT [facility] NITRITES POSITIVE(A) NEGATIVE 04/05/2025 4:39 AM CDT [facility] PROTEIN RANDOM (U) 2+(A) NEGATIVE 04/05/2025 4:39 AM CDT [facility] GLUCOSE (U) NEGATIVE NEGATIVE 04/05/2025 4:39 AM CDT [facility] KETONES MG/DL (U) 1+(A) NEGATIVE 04/05/2025 4:39 AM CDT [facility] BILIRUBIN (U) NEGATIVE NEGATIVE 04/05/2025 4:39 AM CDT [facility] BLOOD (U) TRACE(A) NEGATIVE 04/05/2025 4:39 AM CDT [facility] WBC/HPF 10-25 0 - 5 /HPF 04/05/2025 4:39 AM CDT [facility] RBC/HPF 0-5 0 - 5 /HPF 04/05/2025 4:39 AM CDT [facility] EPI/HPF MODERATE /HPF 04/05/2025 4:39 AM CDT [facility] BACTERIA (U) MANY /HPF 04/05/2025 4:39 AM CDT [facility] URINE SPECIMEN OBTAINED BY CLEAN CATCH PROCEDURE / Unknown 04/05/2025 3:58 AM CDT Jordan Schofield MD URINE ORDERABLES Final Resu lt Performing Organization Address City/[facility]/ZIP Co de Phone Number [facility] [address] [place] [address], [place] [phone] * CORONAVIRUS (COVID-19) MOLECULAR (04/05/2025 12:51 AM CDT) CORONAVIRUS SARS COV 2 RNA NEGATIVE NEGATIVE 04/05/2025 1:23 AM CDT [facility] Comment: NEGATIVE RESULTS DO NOT RULE [...] SPECIMEN TYPE NASAL 04/05/2025 12:50 AM CDT [facility] NASOPHARYNGEAL SWAB / Unknown 04/05/2025 12:51 AM CDT us Jordan Schofield MD MICROBIOLOGY - [facility]AL [facility] Final Result Performing Organization Address [facility]/ZIP Co de Phone Number [facility] [address] [place] [address], [place] [phone] * TSH W/REFLEX (04/05/2025 12:51 AM CDT) Pathologist [facility] TSH 2.153 0.358 - 3.74 uIU/ML 04/05/2025 1:33 AM CDT [facility] Comment: HIGH DOSES OF BIOTIN MAY INTERFERE WITH THIS TEST RESULT. CORRELATION TO CLINICAL HISTORY AND PRESENTATION RECOMMENDED. FREE T4 NOT INDICATED 04/05/2025 12:5 1 AM CDT Jordan Schofield MD LABORATORY Final Resul t [facility] [address] [place] [address], [place] [phone] * (ABNORMAL) COMPREHENSIVE METABOLIC PANEL (04/05/2025 12:51 AM CDT) Pathologist [facility] GLUCOSE 100(H) 70 - 99 MG/DL 04/05/2025 1:33 AM CDT [facility] BUN 10 7 - 18 MG/DL 04/05/2025 1:33 AM CDT [facility] CREATININE S/P/B 0.50(L) 0.55 - 1.02 MG/DL 04/05/2025 1:33 AM CDT [facility] SODIUM S/P/B 139 136 - 145 MMOL/L 04/05/2025 1:33 AM CDT [facility] POTASSIUM S/P/B 3.0(LL) 3.5 - 5.1 MMOL/L 04/05/2025 1:33 AM CDT [facility] Comment: Critical Result(s) Called at: 01:31:30 on 04/05/2025 by: EDVIN ROACH to and read back by: JENNIFER Fang CHLORIDE S/P/B 103 100 - 108 MMOL/L 04/05/2025 1:33 AM [facility] CO2 24.9 21 - 32 MMOL/L 04/05/2025 1:33 AM [facility] CALCIUM S/P/B 9.1 8.5 - 10.1 MG/DL 04/05/2025 1:33 AM [facility] BILIRUBIN TOTAL S/P/B 1.2 0.2 - 1.2 MG/DL 04/05/2025 1:33 AM [facility] TOTAL PROTEIN S/P/B 8.3(H) 6.4 - 8.2 G/DL 04/05/2025 1:33 AM [facility] ALBUMIN S/P/B 3.8 3.4 - 5.0 G/DL 04/05/2025 1:33 AM [facility] AST 65(H) 15 - 37 U/L 04/05/2025 1:33 AM [facility] ALT 51 14 - 55 U/L 04/05/2025 1:33 AM [facility] ALKALINE PHOSPHATASE S/P/B 99 50 - 136 U/L 04/05/2025 1:33 AM [facility] ANION GAP 11.1 5 - 15 MMOL/L 04/05/2025 1:33 AM [facility] BUN CREATININE RATIO 20.0 6 - 26 04/05/2025 1:33 AM [facility] A/G RATIO 0.8(L) 1.0 - 2.0 RATIO 04/05/2025 1:33 AM [facility] GFR ESTIMATE >90 >90 ML/MIN/1.7 3 M2 04/05/2025 1:33 AM [facility] Comment: NOTE: eGFR is not calculated for patients <18 years of age. This is an estimated GFR calculation using the new CKD EPI creatinine equation without race and so does not require a correction factor for race. This estimated GFR should not be used for calculating drug doses. 04/05/2025 12:5 1 AM CDT Jordan Schofield MD LABORATORY Final Resul t [facility] [address] [place] [address], * (ABNORMAL) CBC W/DIFF AUTOMATED (04/05/2025 12:51 AM CDT) WBC 9.35 4.4 - 11.0 x10'3/uL 04/05/2025 1:02 AM CDT [facility] RBC 3.87(L) 4.50 - 5.10 x10'6/uL 04/05/2025 1:02 AM CDT [facility] HGB 14.5 12.3 - 15.3 G/DL 04/05/2025 1:02 AM CDT [facility] HCT 42.2 35.9 - 44.6 % 04/05/2025 1:02 AM CDT [facility] MCV 109.0(H) 80.0 - 96.0 FL 04/05/2025 1:02 AM CDT [facility] MCH 37.5(H) 25.3 - 30.9 PG 04/05/2025 1:02 AM CDT [facility] MCHC 34.4(H) 31.0 - 34.1 G/DL 04/05/2025 1:02 AM CDT [facility] RDW 12.3(L) 12.4 - 15.1 % 04/05/2025 1:02 AM CDT [facility] PLT 266 151 - 353 x10'3/uL 04/05/2025 1:02 AM CDT [facility] MPV 9.8 9.6 - 12.0 FL 04/05/2025 1:02 AM CDT [facility] RBC MORPHOLOGY NORMAL 04/05/2025 1:02 AM T [facility] PLT MORPH. NORMAL 04/05/2025 1:02 AM CDT [facility] WBC MORPHOLOGY NORMAL 04/05/2025 1:02 AM T [facility] LYMPHOCYTES % 15.7(L) 15.8 - 45.0 % 04/05/2025 1:02 AM T [facility] NEUTROPHILS % 68.8 42.1 - 71.9 % 04/05/2025 1:02 AM T [facility] MONOCYTES % 12.0 5.7 - 12.5 % 04/05/2025 1:02 AM T [facility] EOSINOPHILS 2.7 0.0 - 5.6 % 04/05/2025 1:02 AM T [facility] BASOPHILS 0.6 0.0 - 1.3 % 04/05/2025 1:02 AM T [facility] ABS. NEUTROPHILS 6.43(H) 1.40 - 6.00 x10'3/uL 04/05/2025 1:02 AM T [facility] IMMATURE GRANS % 0.2 0.0 - 0.5 % 04/05/2025 1:02 AM T [facility] ABS. LYMPHOCYTES 1.47 0.80 - 4.70 x10'3/uL 04/05/2025 1:02 AM [facility] 04/05/2025 12:5 1 AM CDT Jordan Schofield MD LABORATORY Final Resul t Performing Organization Address [facility] de Phone Number [facility] [address] [place] [address], * SALICYLATE (04/05/2025 12:51 AM CDT) SALICYLATES 3.9 2.8 - 20.0 MG/DL 04/05/2025 1:11 AM CDT [facility] Comment: THERAPEUTIC: 2.8-20.0 Toxic Level: >=30 04/05/2025 12:5 1 AM CDT us Jordan Schofield MD LABORATORY Final Resul t Performing Organization Address [facility] de Phone Number [facility] [address] [place] [address], [place] [phone] * ETHANOL (04/05/2025 12:51 AM CDT) ALCOHOL S/P/B <0.003 <0.003 G/DL 04/05/2025 1:33 AM CDT [facility] 04/05/2025 12:5 1 AM CDT us Jordan Schofield MD LABORATORY Final Resul t Performing Organization Address [facility] de Phone Number [facility] [address] [place] [address], [place] [phone] * (ABNORMAL) ACETAMINOPHEN (04/05/2025 12:51 AM CDT) ACETAMINOPHEN S/P/B <0.5(L) 10.0 - 30.0 MCG/ML 04/05/2025 1:33 AM CDT [facility] Comment: THERAPEUTIC: 10-30 TOXIC: >200 04/05/2025 12:5 1 AM CDT Jordan Schofield MD LABORATORY Final Resul t [facility] [address] [place] [address], [place] [phone] from Last 3 Months Insurance MEDICAID MEDICARE * Guarantor: Mahnaz Oseguera Account Type Relation to Patient Date of Phone Billing Address Personal/Family Self 1965 [id number] [place] [address] Care Teams [employer] Relationship Specialty Start Date End Date Neil Barbour MD PCP - General INTERNAL MEDICINE 12/18/23
--- OUTSIDE RECORDS SUMMARY | 2025-06-12 22:22 | XMS_ITS | Data Portability ---
Author Organization [facility], Main Office Address [address] [place] [address] Care Team Providers Care Rim Turning Finisher Name Role Phone PHYLLIS GALVEZ Primary Care Provider [phone] PHYLLIS GALVEZ Referring Provider Assessment No assessment recorded. Plan of Treatment Reminders Order Date Submit Date Provider Last Modified By Organization Details Last Modified Time Details Appointments None recorded. Lab drug screen, urine 2024 025 [facility] (Lab), [address] [place], [address], 5 10:26:58 urinalysis, dipstick 2024 025 [facility], [address] [place] [address], [address], 12:15:29 vitamin D, 25-hydroxy, total, serum [address] (Lab), [address] [place], [address], 5 09:13:10 vitamin B12 + folate, serum or blood [address] (Lab), [address] [place], [address], 5 09:13:10 CBC w/ auto diff [address] (Lab), [address] [place], [address], 5 09:13:10 TSH, serum or plasma [address] (Lab), [address] [place], [address], 5 09:13:10 glycohemogl obin, total, blood [address] (Lab), [address] [place], [address], 5 09:13:10 lipid panel, serum [address] (Lab), [address] [place], [address], 5 09:13:10 CMP, serum or plasma [address] (Lab), [address] [place], [address], 5 09:13:11 Referral orthopedic surgeon referral - Please call patient to schedule an appointment . Thank you. 2024 025 [email or web address] [facility], [address], [place], [address], 09:21:45 Procedures None recorded. Surgeries None recorded. Imaging None recorded. Medication Orders butalbital 50 mg-acetamin ophen 325 mg tablet 2024 025 [id number], [address], [place], [phone], 16:39:27 cyclobenzap rine 10 mg tablet 2024 025 [facility][id number], [address], [place], [phone], 11:50:40 Patient TargetsNo targets recorded. Patient Instructions Encounter Date Encounter Id Patient Instructions Last Modified By Organization Details Last Modified Time 09/10/2024 [id number] reviewed her medications at length as possible [...] lifelong ailment with limited to no treatment. [email or web address] Not available 09/10/2024 12:09:09 Reason for Referral [...] provi ders and patie nts at the [facility] te: [email or web address] :[email or web address]. t/en/ produ ct-de tails /id-n ow-co vid-1 9.htm l Metho dolog y: Isoth ermal Nucle ic Acid Ampli ficat ion Not Available [facility] (Lab) [address] [place], [address], 03/05/2022 14:48:59 01/16/2001/15/2025 urina lysis , dipst ick Leukocytes (reference range: negative mack/ l) Negati ve Not Available [address], [address], 01/15/2025 11:37:54 01/16/20 25 01/15/2025 urina lysis , dipst ick Nitrite (reference rage: negative mg/dl) negati ve Not Available [address], [address], 01/15/2025 11:37:54 01/16/20 25 01/15/2025 urina lysis , dipst ick Urobilinogen (reference range: 0.2-1 mg/dl) 0.2 Not Available [address], [address], 01/15/2025 11:37:54 01/16/20 25 01/15/2025 urina lysis , dipst ick Protein (reference range: negative mg/dl) Negati ve Not Available [address], [address], 01/15/2025 11:37:54 01/16/20 25 01/15/2025 urina lysis , dipst ick pH (reference range: 5-7) 5.5 Not Available [address], [address], 01/15/2025 11:37:54 01/16/20 25 01/15/2025 urina lysis , dipst ick Blood (reference range: negative Cayden/ l) Negati ve Not Available [address], [address], 01/15/2025 11:37:54 01/16/20 25 01/15/2025 urina lysis , dipst ick Specific Mallard (reference range: 1.005-1.030) 1.005 Not Available [address], [address], 01/15/2025 11:37:54 01/16/20 25 01/15/2025 urina lysis , dipst ick Ketone (reference range: negative mg/dl) Negati ve Not Available [address], [address], 01/15/2025 11:37:54 01/16/20 25 01/15/2025 urina lysis , dipst ick Bilirubin (reference range: negative mg/dl) Negati ve Not Available [address], [address], 01/15/2025 11:37:54 01/16/20 25 01/15/2025 urina lysis , dipst ick Glucose (reference range: negative mg/dl) Negati ve Not Available [address], [address], 01/15/2025 11:37:54 01/16/20 25 01/15/2025 urina lysis , dipst ick Appearance Clear Not Available [address], [address], 01/15/2025 11:37:54 01/16/2001/15/2025 urina lysis , dipst ick Color Yellow Not Available [facility] [address] [facility], [place], [address], 01/15/2025 11:37:54 03/22/20 22 03/22/2022 XR, foot No observ ation record ed. [id number] [facility] [place] [address], [place], [address], 11/07/2022 05:56:49 04/03/20 22 04/05/2022 XR, foot No observ ation record ed. [id number] [facility] [place] [address], [place], [address], 11/07/2022 05:56:49 08/29/20 22 XR, lumba r spine No observ ation record ed. [id number] [facility] [place] [address], [place], [address], 11/07/2022 05:56:49 08/29/20 22 XR, hip + pelvi s, unila teral No observ ation record ed. [id number] [facility] [place] [address], [place], [address], 11/07/2022 05:56:49 09/06/20 22 MRI, lumba r spine , w/o contr ast [facility] [address] [facility] [place] [address] Patien t Name: MAHNAZ MARTINEZ MS Access ion #: [id number] Sex: F : 1964 1 Locati [...] rative etiolo gy. Page 1 of 3 [facility] t Name: MICHELLE BROWN MAHNAZ Bunch Access ion #: [id number] Sex: F : 1964 1 Exam [...] rate left neural forami nal stenos is. Beatriscel ariana s: Image 801-29 demons trates a simple cyst measur ing 8 mm, left kidney . Page 2 of 3 [facility] Patien t Name: MAHNAZ MARTINEZ MS Access ion #: [id number] Sex: F : 1964 1 Exam Date: 2021 9:47 AM Exam Name: MRI L SPINE WO Admitt ing Diagno sis(es ): IMPRES JAQUELIN: See above. Create d and electr onical ly signed by: Kristopher gomez MD Signed Date: 2021 3:19 PM (CT) Dictat ed by: Kristopher gomez MD DD: 2021 3:19 PM (CT) DT: 2021 3:19 PM (CT) Page 3 of 3 [id number] [facility] (Imaging) [address] [place], [address], 11/07/2022 05:56:49 07/04/20 23 07/04/2023 CT, abdom en + pelvi s, w/o contr ast No observ ation record ed. [email or web address] [address] [facility], [place], [address], 12/11/2023 15:29:02 12/13/19 24 09/20/2023 XR, knee, 3 view No observ ation record ed. [email or web address] Not Available 01/2024 15:40:22 09/16/19 25 09/16/2024 XR, lumba r spine No observ ation record ed. [email or web address] [address], [place], [address], 09/23/2024 16:57:07 09/17/19 25 09/16/2024 CT, tempo ral bone, w/o contr ast No observ ation record ed. [email or web address] [facility] [address], [place], [address], 09/23/2024 16:49:23 09/17/19 25 09/17/2024 XR, lumba r spine No observ ation record ed. [facility] [address], [place], [address], 09/17/2024 11:33:10 09/17/19 25 09/17/2024 CT, tempo ral bone, w/o contr ast No observ ation record ed. [address], [place], [address], 09/23/2024 16:53:21 09/28/19 25 09/28/2024 audio gram + tympa nogra m No observ ation record ed. [address] [facility] [address], [place], [address], 10/12/2024 16:23:27 10/26/19 25 10/26/2024 audio gram + tympa nogra m No observ ation record ed. [facility] [address], [place], [address], 10/26/2024 11:03:19 01/08/20 25 01/07/2025 XR, wrist No observ ation record ed. [facility] [address] [place], [address], 04/22/2025 16:39:14 Result Notes Documentation Provider Name and Address Organization Details Recorded Time Mri, Lumbar Spine, W/o Contrast : [facility] [address] [place] [address] Patient Name: MAHNAZ ANGUIANO Sex: F : 1965 Location: [facility] [place] Attending Physician: AMADEO THIBODEAUX Ordering Physician: AMADEO THIBODEAUX Exam Date: 09/06/2022 9:47 AM Exam Name: MRI L SPINE WO Admitting Diagnosis(es): RADIOLOGY REPORT - FINAL EXAM: MRI L SPINE WO HISTORY: lt leg numbness fell 3 knee a months ago complains of lower back pain and bilateral leg pain left greater than right COMPARISON: Radiograph 08/29/2022 TECHNIQUE: Multiplanar multisequence noncontrast MR images of the lumbar spine were performed. Sagital: T1, T2, Axial: T1, T2, T2 multiangle. FINDINGS: Vertebral bodies: Mildly inhomogenous marrow signal intensity correlate for systemic anemia. 7 mm anterior offset of L4 relative to L5, degenerative etiology. Page 1 of 3 [facility] Patient Name: MAHNAZ ANGUIANO Sex: F : 1965 Exam Date: 09/06/2022 9:47 AM Exam Name: MRI L SPINE WO Admitting Diagnosis(es): Conus medullaris: T12-L1 Disc spaces: All levels demonstrate degenerative desiccation signal intensity Paravertebral soft tissues: Unremarkable Vasculature: No aneurysm T12-L1: Unremarkable L1-2: broad-based disc protrusion resulting in moderate central spinal stenosis. L2-3: Otherwise unremarkable L3-4: Mild bulging of the degenerate annulus and facet hypertrophy results in mild central spinal stenosis. L4-5: Facet hypertrophic changes and degenerative etiology anterior offset of L4 relative L5 results in moderate to severe central spinal stenosis and severe bilateral preforaminal stenosis with evidence of mild to moderate bilateral neural foraminal stenosis. L5-S1: Degenerative etiology moderate right and yade-rq-exdsizkv left neural foraminal stenosis. Miscellaneous: Image 801-29 demonstrates a simple cyst measuring 8 mm, left kidney. Page 2 of 3 [facility] Patient Name: MAHNAZ ANGUIANO Sex: F : 1965 Exam Date: 09/06/2022 9:47 AM Exam Name: MRI L SPINE WO Admitting Diagnosis(es): IMPRESSION: See above. Created and electronically signed by: Kristopher Faye MD Signed Date: 09/06/2022 3:19 PM (CT) Dictated by: Kristopher Faye MD (CT) (CT) Page 3 of 3 Not Available [facility] 11/07/2022 05:56:50 Problems Name Problem SNOMED Code Status Onset Date Resolution Date Notes Provider Name and Address Organization Details Recorded Time Bipolar disorder 66527781 Active Not Available [facility] 3 05:53:03 Menopaus al flushing 760140397 Completed 01/15/2025 Surgical menopaus e TYLER Caban [address], [place], [address] , [place] [facility] [employer] 5 11:46:55 Vaginal discharg e 130873789 Completed 01/15/2025 TYLER Caban [address], [address], [place], [address] , [employer] 5 11:46:36 Closed fracture of lateral malleolu s 44363134 Completed 01/15/[address], [place], [address] , [employer] 5 11:47:09 Mixed urinary incontin ence 437980614 Completed 01/15/2025 TYLER Caban [address], [address], [place], [address] , [email or web address] [facility] 5 11:46:49 Fracture of lower leg 983554498 Completed 01/15/[address], [place], [address] , [employer] [facility] 5 11:47:00 Urinary tract infectio us disease 56717479 Active Not Available [facility] 3 05:53:04 Metatars algia 24205885 Completed 201901/15/[address], [place], [address] , [employer] [place] [facility] 5 11:46:52 Acquired right hallux rigidus 31001601458 4100 Completed 201901/15/2025 TYLER Caban [address], [place], [address] , [facility] 5 11:47:16 Postoper ative visit 307493741 Completed 201901/15/2025 TYLER Caban [address], [place], [address] , [facility] 5 11:46:40 Postoper ative pain 507598302 Completed 201901/15/2025 TYLER Caban [address], [place], [address] , [facility] 5 11:46:43 Ingrowin g toenail 482502570 Completed 202001/15/2025 TYLER Caban [address], [address], [place], [address] , [facility] 5 11:46:57 Foot pain 06451717 Completed 202101/15/2025 TYLER Caban [address], [place], [address] , [facility] 5 11:47:05 Osteoart hritis of ankle and/or foot 88631392 Active 2021 Not Available [employer] 3 05:53:04 Foot pain 97050850 Completed 202101/15/2025 TYLER Caban [address], [address], [place], [address] , [facility] 5 11:47:02 Pain of left hip joint 27249869103 9100 Completed 202101/15/2025 TYLER Caban [address], [place], [address] , [facility] 5 11:46:46 Tinnitus 70489606 Active 2024 Callie Corcoran RN [facility], [facility] 5 12:02:07 Biljessicaa l tinnitus 90874929773 02 Completed 202401/15/2025 TYLER Caban [address], [place], [address] , [facility] 5 11:47:12 Osteoart hritis of right hip joint 92152606513 9107 Active 2024 TYLER Caban [address], [place], [address] , [facility] 5 11:37:30 Recurren t urinary tract infectio n 288320162 Active 2024 TYLER Caban [address], [place], [address] , [facility] 5 11:37:47 Chronic primary low back pain Active 2024 TYLER Caban [address], [place], [address] , [facility] 5 11:38:36 Episodic migraine 44785423511 4106 Active [address], [place], [address] , [facility] 5 11:39:10 Body mass index 25-29 - overweig ht 638070700 Active 2024 TYLER Caban [address], [place], [address] , [facility] 5 11:47:58 Fatigue 14080784 Active 2024 TYLER Caban [address], [address], [address] , [facility] [employer] [facility] 5 11:49:19 Notes:Some problems listed i n Document: #[id number] could not be added to this patient's chart. Please review this document and add these problems to the patient's chart manually as needed. Problem Notes None recorded. Procedures Surgical History Date Name Laterality Status Provider Name and Address Organization Details Recorded Time 08/05/20 procedure on ureter completed Sharla Joseph RN [facility] [employer] [facility] 01/15/2025 11:16:13 09/09/19 hysterectomy completed Callie Corcoran RN [facility] [employer] [facility] 09/11/2024 08:33:11 01/08/20 procedure on back completed Sharla Joseph RN [facility] [employer] [facility] 01/15/2025 11:13:34 01/08/20 excision of fallopian tube and surgical removal of ectopic completed Sharla Joseph RN [facility] [employer] [facility] 01/15/2025 11:14:47 tonsillectomy completed Callie Corcoran RN [facility] 09/10/2024 11:42:48 Foot Surgery completed Callie Corcoran RN [facility] 09/11/2024 08:33:49 Imaging Results None recorded. Procedure Notes None recorded. Medical Equipment None Reported. Allergies Allergen ID Allergen Name Allergen Category Reaction Reaction Severity Criticality Documentation Date Start Date Code Code System Note Provider Name and Address Organization Details Recorded Time 9875 Zyprexa medicatio n swelling mild high 11/07/2022 81413 3 RxNorm shashank Joseph RN [facility], [facility] 5 11:03:30 9876 Ultram medicatio n rash Not available Not available 11/07/2022 83915 6 RxNorm Not Available Replaced by [facility] 3 05:56:45 9877 Saphris medicatio n hives Not available Not available 11/07/2022 77642 6 RxNorm Not Available Replaced by [facility] 3 05:56:45 9878 Risperdal medicatio n hives Not available Not available 11/07/2022 25006 8 RxNorm Not Available [facility] 3 05:56:45 9879 bacitraci n / neomycin / polymyxin B medicatio n rash Not available Not available 11/07/2022 84385 9 RxNorm Not Available [facility] 3 05:56:45 9880 Motrin medicatio n Not available Not available Not available 11/07/2022 04773 8 RxNorm Not Available [facility] 3 05:56:45 9881 latex environme nt,medica tion rash Not available Not available 11/07/2022 33078 91 RxNorm Not Available [facility] 3 05:56:45 9882 ibuprofen medicatio n vomiting Not available Not available 11/07/2022 5640 RxNorm Not Available [facility] 3 05:56:45 9883 Haldol medicatio n Not available Not available Not available 11/07/2022 81277 9 RxNorm GUNNER Corcoran RN null, [place] [facility] 5 08:19:50 9884 grass pollen environme nt,medica tion rash Not available Not available 11/07/2022 Not Available Replaced by [facility] 3 05:56:45 9885 erythromy kya medicatio n hives Not available Not available 11/07/2022 4053 RxNorm Not Available Replaced by [facility] 3 05:56:45 9886 Product containin g glucocort icoid (product) medicatio n Not available Not available Not available 11/07/2022 07877 6006 SNOMED Not Available [facility] 3 05:56:45 9887 Cipro medicatio n vomiting Not available Not available 11/07/2022 45490 3 RxNorm Not Available Replaced by [facility] 3 05:56:45 9888 amoxicill in medicatio n hives Not available Not available 11/07/2022 723 RxNorm Not Available [facility] 3 05:56:46 Medications Name Sig Start [...] oral route as directed . 2024 active Bella Alvarado CP Not Available Not Available Not [...] Not Available Not Available Not Available Fluvirin 9258-9118 45 mcg (15 mcg x 3)/0.5 mL intramusc ular suspensio n INJECT 0.5 ML INTRAMUS CULARLY DIRECTED . active Not Available Not Available No t Available Fluvirin 8700-7124 45 mcg (15 mcg x 3)/0.5 mL intramusc ular suspensio n 08/19 completed Not Available Not Available Not Available Fluvirin 2015- (PF) 45 mcg (15 mcg x 3)/0.5 [...] Available Not Available Vitals Date Recorded Body weight Body mass index (BMI) Body height Body temperature Provider Name and Address Organization Details Last Updated DateTime 09/10/2024 99099.59 g 28 kg/m2 160.02 cm 97.7 [degF] Callie Corcoran RN [facility] [employer] 09/10/2024 11:43:52 Date Recorded Body height Body mass index (BMI) Body weight Body temperature Oxygen saturation Oxygen saturation in Arterial blood by Pulse oximetry Heart rate Systolic And Diastolic Provider Name and Address Organization Details Last Updated DateTime 5 160.02 cm 29.6 kg/m2 21334.9 8 g 97.9 [degF] 96 % 96 % 81 /min 130/64 mm[Hg] Sharla Joseph RN [facility] [employer] 5 11:01:17 Date Recorded Body height Provider Name an d Address Organization Details Last Updated DateTime 03/22/2022 160.02 cm Not Available [facility] 3 05:52:30 Date Recorded Body height Provider Name an d Address Organization Details Last Updated DateTime 04/05/2022 160.02 cm Not Available [facility] 3 05:52:30 Date Recorded Body height Provider Name an d Address Organization Details Last Updated DateTime 08/29/2022 160.02 cm Not Available [facility] 3 05:52:31 Social History Question Answer Notes LastModified by Organizat ion Details LastModified Time Tobacco Smoking Status Current Every Day Smoker Callie Corcoran RN [facility], [facility] [employer] 09/10/2024 11:42:34 What Is Your Level Of Caffeine Consumption? Occasional What's In Headache Medicine [email or web address] Information not available 01/15/2025 What Is Your Current Pack Years? [facility] [email or web address] Information not available 01/15/2025 At What Age Did You Start Smoking Tobacco? 10 [email or web address] Information not available 01/15/2025 How Much Tobacco Do You Smoke? 2 PPD [email or web address] Information not available 01/15/2025 How Many Years Have You Smoked Tobacco? 49 Information not available 01/15/2025 Sex: Unknown Functional Status Question Answer Note LastModified by Organizat ion Details LastModified Time Do you use any illicit or recreational drugs? No [email or web address] Information not available 01/15/2025 Do you or have you ever used any other forms of tobacco or nicotine? No [email or web address] Information not available 01/15/2025 What is your level of alcohol consumption? None [email or web address] Information not available 09/10/2024 Mental Status None recorded. Family History Relationship Description Onset Age of this Age Resolved Age Notes LastModified by Organization Details LastModified Time Maternal Grandmother Sarcoma of uterus 100 [email or web address] Not available 01/15 11:17:39 Maternal Grandmother Congestive heart failure 100 [email or web address] Not available 01/15 11:19:03 Mother Familial ovarian cancer 68 [email or web address] Not available 01/15 11:18:23 Mother Kidney disease 74 Not available 01/15 11:20:41 Maternal Aunt Diabetes mellitus Not available 01/15 11:19:45 Maternal Aunt Kidney disease [email or web address] Not available 01/15 11:20:41 Maternal Aunt Fibromyalgia Not available 01/15/2025 11:21:51 Sister Rheumatoid arthritis 45 2 sister s [email or web address] Not available 01/15/2025 11:22:53 Notes:THYROID HX: SISTERS, c ousin Medical History Condition Response CANCER: SPECIFY Y NO SIGNIFICANT PAST MEDICAL HISTORY Y Gynecological HistoryNo gynecological history recorded. Obstetrics History GPAL:G 0 P 0 0 0 0 Immunizations Vaccine Type Date Status Note Provider Nam e and Address Organization Details Recorded Time Pneumococcal conjugate PCV20, polysaccharide [id number] conjugate, adjuvant, PF 5 completed Sonia Toledo RN null, [place] [employer] 01/19/2025 09:05:06 Tdap 5 completed Sonia Toledo RN [facility], [place] [facility] [place] [facility] 01/19/2025 09:05:06 Past Encounters Encounter ID Performer Location Encounter Start Date Encounter Closed Date Diagnosis/Indication Diagnosis SNOMED-CT Code Diagnosis ICD10 Code Diagnosis IMO Codes Diagnosis Note [id number] [facility] [place] [address] [place] [address] 02/20/2021 00:00:00 02/21/2021 08:28:36 [id number] [facility] [place] [address] [place] [address] 03/09/2021 00:00:00 03/14/2021 07:06:59 [id number] [facility] [place] [address] [place] [address] 01/29/2022 00:00:00 01/30/2022 10:40:26 [id number] [facility] [place] [address] [place] [address] 03/15/2022 00:00:00 03/19/2022 08:37:32 [id number] [facility] [place] [address] [place] [address] 03/22/2022 00:00:00 03/26/2022 13:40:11 [id number] [facility] [place] [address] [place] [address] 04/05/2022 00:00:00 04/05/2022 14:26:51 [id number] Amadeo Thibodeaux MD [facility] [place] [address] [place] [address] 08/29/2022 00:00:00 08/29/2022 16:51:48 [id number] Surinder Vargas MD [facility] [address] [place] [address] 09/10/2024 11:27:02 09/10/2024 12:09:40 Bilateral tinnitus [id number] 102 H93.13 [id number] TYLER Caban [facility] [address] [place] [address] 01/15/2025 10:31:55 01/21/2025 16:57:14 Osteoarthritis of right hip joint [id number] 11081 M16.11 [id number] She is currently taking [place] 5/325 mgShe completed PT, utilizes TENs unit, ice, and heatShe is also taking acetaminop hen 4,000-6,00 0 mg 3-4 times today. Discussed this is not safe, recommende d Recurrent urinary tract infection [id number] N39.0 1271074 States she is typically asymptomat ic and would like to have her urine checked at every visit Chronic pr imary low back pain [id number] 7100 M54.59 G89.29 [id number] Has had spinal fusion, requires another but cannot until she quits smoking Bipolar disorder 2194653 4 F31.9 Managed by psych Episodic migraine 942752 3088 00832 G43.909 [id number] States that she has been unable to controll these with preventati ve medication s - will discuss in more depth at next appt Requires v accination against Streptococcus pneumoniae [id number] Z23 986293 Administra tion of tetanus vaccine 778060342 Z23 Body mass index 25-29 - overweight [id number] E66.3 279525 Fatigue 15639267 R53.82 658635 Long-term current use of drug therapy 305259832 Z79.262 [id number] Health Concerns Section Related Observation LastModified by Organization Detai ls LastModified Time None Recorded Concern Status LastModified by Organization Details LastModified Time None Recorded Advance Directives Directive None Recorded Payers Insurance Date Sequence Insurance Name Policy Number Policy Arguello Covered Member ID Arguello Member ID Guarantor Name 02/15/2025 1 [place] Mahnaz Anguiano [id number] Mahnaz Anguiano 02/15/2025 2 [place] WHEN MEDICARE OR MEDICARE REPLACEMENT PRIMARY) Mahnaz Anguiano [id number] Mahnaz Anguiano 02/15/2025 [employer] - DMEPOS ASSIGNED (MEDICARE DME REGION B) Mahnaz Anguiano [id number] Mahnaz Anguiano 02/15/2025 [place]ICAID [place] DURABLE MEDICAL EQUIPMENT Mahnaz Anguiano [id number] Mahnaz Anguiano Notes Date Note Type Note Provider Name [...] symptoms. She denies any otalgia. Callie Wakefield, [facility] [address] [facility], [facility] [address], [place], [address], [facility] [employer] 09/10/2024 12:09:13 01/15/2025 text/html Mahnaz Anguiano is a 59 year old female patient here today to establish care. She is due for an annual wellness visit. She was previously see Dr. Neil Galvez. 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 She is see Dr. Watson through [facility]. She has a history of migraines. She [...] to leave. Will complete at next appt TYLER Caban [address] [facility], [facility] [address], [place], [address], [place] [facility] 01/15/2025 14:06:40 OBGyn Episode No OBEpisode recorded.
--- OUTSIDE RECORDS SUMMARY | 2025-06-12 22:22 | XMS_ITS | Clinical Summary ---
Author Organization [facility] [address] Address [address] [place] [address] Care Team Providers Care Mig Tig Welder Name Role Phone Neil Barbour MD Primary Care Provider Ismael Vanegas MD Unavailable [phone] Allergies Active Allergy Reactions Criticality Noted [...] Medium 10/19/2012 unk Lidocaine Unknown 10/19/2012 unk Gfmqikjf-Efouavkmja-Znrjn yxin Olanzapine Anaphylaxis High 10/19/2012 unk Oxycodone [...] Back Surgery - (Added by TW Conv) IN TOTAL ABDOMINAL HYSTERECT W/WO RMVL TUBE OVARY Hysterectomy - (Added by TW Conv) IN TONSILLECTOMY PRIMARY/SEC ONDARY <AGE 13 Tonsillectomy - [...] Day Cigarettes 1 48 Smokeless Tobacco: Never [facility] Utilities Answer Date Recorded In the [...] often do you attend chur ch or alevism services? Never 08/07/2023 Do you belong to any clubs o r organizations such as anabaptism groups, unions, fraternal or athletic groups, or [...] place to sleep or slept in a assisted (including now)? No 08/07/2023 Personal Safety Answer Date Recorded Have you ever been in or are you currently in a harmful physical or emotional relationship or is someone making you feel afraid or unsafe? Denies 08/05/2023 Comments No Sex and Gender Information Value Date Recorded Sex Assigned at Not on file Legal Sex Female 4:20 PM LARD MAKER Gender Identity Not on file Sexual Orientation Not on file Obstetrics History Last Filed Vital Signs Vital Sign Reading Time Taken Comments Blood Pressure 109/63 08/07/2023 3:31 PM LARD MAKER Pulse 101 08/07/2023 3:31 PM LARD MAKER Temperature 36.9 C (98.5 F) 08/07/2023 3:31 PM LARD MAKER Respiratory Rate 18 08/07/2023 3:31 PM LARD MAKER Oxygen Saturation 98% 08/07/2023 3:31 PM LARD MAKER Inhaled Oxygen Concentration - - Weight 71.7 kg (158 lb 1.1 oz) 08/05/2023 12:15 PM LARD MAKER Height 157.5 cm (5' 2) 08/05/2023 12:15 PM LARD MAKER Body Mass Index 28.91 08/05/2023 12:15 PM LARD MAKER Plan of Treatment Health Maintenance Due Date [...] Completed 06/22/2010 Medical Devices Implanted Type Area Brand Ambassador Promotional Model Device Identifier Shelf Expiration Date Model / Serial / Lot [employer] Masood Contour 6fr 26cm Large Inner Lumen Low Profile Bladder Shane Taper Latex Free 180-223 - [id number] Implanted:Qty: 1 on 08/05/2023 by Ismael Vanegas MD at [facility] Stent Right: Ureter [employer] Masood 04/01/2026 [id number] / / [id number] Insurance MEDICARE [facility] MEDICARE IDPA MEDICARE IDPA Advance Directives For more information, please contact: [phone] * Full Code (Latest Code Status on File) Date Activated Date Inactivated Comments 08/05/2023 8:31 PM 08/07/2023 7:47 PM Care Teams Mig Tig Welder Relationship Specialty Start Date End Date Neil Barbour MD [address] [address] PCP - General Gastroenterology 03/27/23 [place] [address] [place] [address] Consulting Physician Urology 08/07/23
[2025-06-12 22:39] VITALS: BP 117/79; PULSE 88; RESP 26; TEMP 36.6; O2SAT 99
--- NOTE | 2025-06-12 22:40 | ECG_ITS ---
Test Date: 2025-06-12 22:19:48 Measurements Intervals [place] Rate: 84 P: 23 NC: 143 QRS: 30 QRSD: 102 T: 30 QT: 351 QTc: 416 Interpretive Statements SINUS RHYTHM LOW QRS VOLTAGE IN PRECORDIAL LEADS INCOMPLETE RIGHT BUNDLE BRANCH BLOCK POSSIBLE ANTERIOR MYOCARDIAL INFARCTION , OF INDETERMINATE AGE BASELINE ARTIFACT- I, II, III, AVR, AVL, AVF, V1-V6 ABNORMAL ECG Compared to ECG 05/18/2025 15:11:01 HEART RATE HAS DECREASED Electronically Signed On 06-13-2025 08:20:20 CDT by Tony Chen D.O.
--- NOTE | 2025-06-12 22:45 | ED.OVERDOSE ---
HPI - Overdose General Chief Complaint: Overdose Stated Complaint: LETHARGIC, OVERDOSE Time Seen by Provider: 06/12/25 22:03 Source: EMS (medical control initially and radio report) and RN notes reviewed Mode of arrival: EMS Limitations: altered mental status and clinical condition History of Present Illness HPI Narrative: Patient presents after concern for overdose. PD had to break door down given concern patient had locked self in room. Lives with mother. History of recurrent overdose attempts. Appeared lethargic. Rx bottle for hydrocodone recently filled, #80 tablets with only 37 on scene and a bottle of Tylenol with caffeine that initially had #90 tablets, now empty. Denies SI. Patient confused, oriented to self only. Initially had been agitated and did not want to come. Had threatened to be agitated/aggressive/hostile. Unable to make decisions for self given orientation. Did not require any pharmacological or chemical restrain for transportation though, complied. She denies any tongue pain although later she complains of dry mouth. She reports that she has pain everywhere including headache, chest pain, abdominal pain. Keeps changing responses. At first stating she needs Haldol and then screaming don't give me Haldol. Has an allergy listed. Similar for other medications which she requests then states she has allergies to. Related Data Home Medications ?Medication ?Instructions ?Recorded ?Confirmed ?Last Taken ?Type prazosin 5 mg capsule 10 mg PO HS 04/18/22 06/13/25 Unknown History chlorpromazine 100 mg tablet 100 mg PO Q12H 03/27/23 06/13/25 Unknown History gabapentin 300 mg capsule 600 mg PO TID 05/25/23 06/13/25 Unknown History wkyloxnnbz-gcnkccxjysuzb-rvgtpaoj 1 tablet PO Q8H PRN Headache 07/26/24 06/13/25 07/24/24 History 50 mg-325 mg-40 mg tablet benztropine 1 mg tablet 1 mg PO BID 01/31/25 06/13/25 Unknown History buspirone 30 mg tablet 30 mg PO Q12H 01/31/25 06/13/25 Unknown History ondansetron 4 mg disintegrating 4 mg translingual TID PRN nausea 01/31/25 06/13/25 Unknown History tablet and vomiting sertraline 100 mg tablet 200 mg PO DAILY 01/31/25 06/13/25 Unknown History cyclobenzaprine 10 mg tablet 10 mg PO Q12H 05/16/25 06/13/25 Unknown History hydrocodone 5 mg-acetaminophen 325 1 tablet PO Q8H 05/16/25 06/13/25 Unknown History mg tablet Allergies Allergy/AdvReac Type Severity Reaction Status Date / Time grass pollen Allergy Intermediate Hives Verified 06/13/25 13:00 olanzapine (From Zyprexa) Allergy Unknown Swelling Verified 06/13/25 13:00 of Lip/Tongue/Throat amoxicillin (From Augmentin) Allergy Hives Verified 06/13/25 13:00 asenapine (From Saphris) Allergy Hives Verified 06/13/25 13:00 bacitracin (From Neosporin Allergy Rash Verified 06/13/25 13:00 ([id number])) clavulanic acid (From Allergy Hives Verified 06/13/25 13:00 Augmentin) erythromycin base Allergy Hives Verified 06/13/25 13:00 latex Allergy Rash Verified 06/13/25 13:00 neomycin (From Neosporin Allergy Rash Verified 06/13/25 13:00 ([id number])) polymyxin B (From Neosporin Allergy Rash Verified 06/13/25 13:00 ([id number])) risperidone (From Risperdal) Allergy Hives Verified 06/13/25 13:00 tramadol (From Ultram) Allergy Rash Verified 06/13/25 13:00 haloperidol (From Haldol) AdvReac Severe Swelling Verified 06/13/25 13:00 of Lip/Tongue/Throat ciprofloxacin AdvReac Vomiting Verified 06/13/25 13:00 ibuprofen AdvReac Vomiting Verified 06/13/25 13:00 Steriod AdvReac Agitated Uncoded 05/16/25 12:53 [facility] Past Medical History Medical History (Updated 06/14/25 @ 20:51 by Twyla Gage MD) History of repeated overdose Bipolar mood disorder Methamphetamine use GERD (gastroesophageal reflux disease) Major depression with psychotic features Carpal tunnel syndrome of right wrist Carcinoma of right ureter SVT (supraventricular tachycardia) Hepatitis C Alcohol abuse Schizoaffective disorder [place] toxicity Due to overdose/suicide attempt Requiring temporary dialysis Tobacco dependence Chronic obstructive pulmonary disease Distal radial fracture December 2022 Ankle fracture, lateral malleolus, closed December 2022 Seizure Migraine Anxiety Suicide attempt Multiple hospitalizations for suicide attempt with history of cutting Surgical History Surgical History History of right salpingo-oophorectomy Due to ectopic Status post lumbar discectomy (~1999) L5-S1 Status post open reduction with internal fixation of fracture Cervical spine fracture History of ureterostomy History of kidney surgery H/O dilation and curettage H/O tubal ligation History of tonsillectomy H/O foot surgery 2021 X2 H/O: hysterectomy 2000 hysterectomy with left oophorectomy Family History Family History Father Alcoholism Grandparent Diabetes mellitus Hypertension Heart disease Mother Kidney disease Grandparent Alcoholism Social History Social History (Updated 06/14/25 @ 20:52 by Twyla Gage MD) Social History: Surrogate medical decision maker: Landy Silva, mother. Code status: Full code. Smoking packs per day: 1.5 Smoking cigarettes per day: 30.0 Years smoked: 45 Smoking pack-years: 67.50 Smoking status: Current every day smoker Tobacco type: cigarettes Alcohol intake: unknown Substance use: current Substance use type: opiates and painkillers Other substance usage details: Fioricet and Sullivan Lack of Transportation: No Lack of Food: Never True Current Housing: I Have Housing Concerned About Future Housing: No Difficulty Paying Gas/Electric Bills: No Difficulty Paying for Meds: No Currently Unemployed: No Education: High School Diploma/GED Difficulty w/ Childcare or Family Care: No Living arrangements: with family Additional living arrangements comments: Lives with mother in [place]. Occupation/Education: unemployed Additional occupation/education comments: Disabled. Spiritual care concerns: No Exam Narrative: GENERAL: Chronically ILL-appearing, appears older than stated age HEAD: Normocephalic, atraumatic. EYES: Non injected, non icteric ENT: Nares clear, no rhinorrhea or epistaxis. Gross auditory acuity intact. NECK: Supple. No meningismus. CHEST: Speaking in full sentences. No respiratory distress. HEART: Regular rate and rhythm. . ABDOMEN: Soft, nondistended. No rigidity or guarding. Not peritoneal EXTREMITIES: Normal range of motion. No lower extremity edema. SKIN: Warm, dry, no rash. NEURO: No focal deficits. Alert and oriented to self only. Answering questions but not consistently/appropriately. Slurred speech. PSYCH: Congruent mood and affect. Course Vital Signs Vital signs: Vital Signs Temperature 98 F 06/12/25 22:39 Pulse Rate 88 06/12/25 22:39 Respiratory Rate 26 H 06/12/25 22:39 Blood Pressure 117/79 06/12/25 22:39 Pulse Oximetry 99 06/12/25 22:39 Oxygen Delivery Room Air 06/12/25 22:39 Temperature 97.9 F 06/14/25 16:00 Pulse Rate 86 06/14/25 16:00 Respiratory Rate 15 06/14/25 16:00 Blood Pressure 145/90 H 06/14/25 16:00 Pulse Oximetry 97 06/14/25 16:00 Oxygen Delivery Room Air 06/14/25 04:00 MDM - Overdose MDM Narrative Medical decision making narrative: Patient presents with concern for overdose. history of recurrent overdose incidents. Recently filled hydrocodone Rx with #80 tablets but only #37 on scene. An empty #90 tablet bottle of tylenol and caffeine also present. Patient A&O x1 but protecting airway. In the ED she is afebrile with VS that show tachypnea. It appears most recent [place] 5-325 was filled on 06/10/25, prescribed by Salina Miguel who appears to be a local CHILD CARE WORKER, possibly through [facility] . #80 for 28 days. Patient is agitated and uncooperative, she requires an initial dose of IM 5 mg diazepam. She is still not cooperative with obtaining workup and is not redirectable. Ketorolac had been ordered for her report of back pain and pain everywhere. Additionally olanzepine ordered as patient has ripped out IVs and we still do not have lab work. Hypokalemia. Oral repletion ordered. Poison Control recommended that even though her initial acetaminophen level was normal, given the possible delayed response, obtaining one 4 hours from ingestion. As we don't know that but presume just PSYCHOLOGY TEACHER, this is timed 4 hours from then. They recommend even if normal at that time, repeating 4 hours after. Ethanol lactic acid normal. Magnesium TSH normal. Salicylate normal. She has evidence of urinary tract infection. Previous urine culture from 06/07/2025 did grow Klebsiella aerogenes which was resistant to Augmentin and cefoxitin and indeterminate to Macrobid however it was sensitive to the other antibiotics assessed. Cephalexin had been filled on 06/07/25 although it is unclear if she has been taking it, she doesn't know. Ammonia only mildly elevated. Repeat troponin remains normal. Another 4 hour repeat is ordered as per poison Control Center recommendations. UDS positive for opiates and barbiturates. Third acetaminophen level is normal. Patient has urinated on the bedding multiple times while in the emergency department. At this time I do believe that part of her confusion is related to the urinary tract infection that she has. She requires admission. Ceftriaxone ordered. Discussed patient with on-call hospitalist Dr Hillman who advises following the protocol of discussing with Dr Gay. Discussed with dope worker who agrees with admission in an ICU bed for 1:1 monitoring (suicide watch) but IMU status. Of note, patient has presented multiple times for similar. Would advise that previous/current prescribers be made aware so patient's chronic pain can still be addressed but with appropriate safety plans. Differential Diagnosis Differential diagnosis: Likely suicide attempt by multiple drug overdose, poisoning by opiate or related narcotic, drug overdose, acetaminophen overdose and accidental drug ingestion Lab Data 06/14/25 03:51 06/14/25 03:51 Labs: Lab Results 06/12/25 06/13/25 06/13/25 Range/Units 23:57 00:12 03:04 WBC 7.8 (4.5-10.0) K/mm3 RBC 4.05 L (4.2-5.4) M/mm3 Hgb 13.8 (12.0-15.0) g/dL Hct 42.2 (37.0-47.0) % MCV 104.2 H (80-100) fl MCH 34.1 H (26-34) pg MCHC 32.7 (32-36) g/dl RDW 13.6 (11.5-14.5) % Plt Count 283 (150-375) k/mm3 MPV 9.6 (7.4-10.4) fl Immature Gran % (Auto) 0.4 (0-0.5) % Neut % (Auto) 59.7 (45.5-73.1) % Lymph % (Auto) 26.7 (18.3-44.2) % [place] % (Auto) 11.9 H (2.6-8.5) % Eos % (Auto) 0.9 (0-4.4) % Baso % (Auto) 0.4 (0.2-1.2) % Lymph # (Auto) 2.07 (0.9-3.2) K/mm3 [place] # (Auto) 0.9 H (0.1-0.6) K/mm3 Eos # (Auto) 0.1 (0-0.3) K/mm3 Baso # (Auto) 0.0 (0.0-0.1) K/mm3 Abs Immat Gran (auto) 0.03 (0.00-0.031) K/mm3 Absolute Neuts (auto) 4.6 (1.3-6.7) K/mm3 Absolute Nucleated RBC 0.000 (0.0-0.012) K/mm3 Nucleated RBC % 0.0 (0.0-0.2) % PT 12.9 (11.1-14.7) Seconds INR 1.0 APTT 28.4 (22.3-36.8) Seconds Sodium 139 (137-145) mmol/L Potassium 3.2 L (3.4-5.0) mmol/L Chloride 108 H (98-107) mmol/L Carbon Dioxide 23 (22-30) mmol/L Anion Gap 8 (4-12) mmol/L BUN 13 D (7-17) mg/dL Creatinine 0.60 L (0.7-1.0) mg/dL Estim Creat Clear Calc 84 ml/min Estimated GFR > 60 (59 - ) Glucose 98 (65-110) mg/dL Lactic Acid 0.8 (0.7-2.0) mmol/L Calcium 9.2 (8.4-10.2) mg/dL Phosphorus 3.1 (2.5-4.5) mg/dL Magnesium 2.0 (1.6-2.3) mg/dL Total Bilirubin 1.5 H (0.2-1.3) mg/dL AST 112 H (14-36) U/L ALT 42 H (6-35) U/L Alkaline Phosphatase 154 H (38-126) U/L Ammonia Cancelled Troponin I < 0.012 (0.000-0.034) ng/mL Total Protein 9.0 H (6.3-8.2) g/dL Albumin 4.3 (3.5-5.1) g/dL TSH 0.714 (0.465-4.680) uIU/mL Urine Color Yellow (Yellow) Urine Appearance Cloudy H (Clear) Urine pH 5.5 (5.0-9.0) Ur Specific [place] 1.020 (1.001-1.035) Urine Protein 1+ H (Negative) mg/dL Urine Glucose (UA) Negative (Negative) mg/dL Urine Ketones Negative (Negative) mg/dL Ur Blood (Man) Negative (Negative) Urine Nitrate Positive H (Negative) Urine Bilirubin Negative (Negative) Urine Urobilinogen 0.2 (<2.0) mg/dL Leukocyte Esterase Rfl 2+ H (Negative) ROCHELLE/UL Urine RBC 0-2 (0-2) /hpf Urine WBC >100 H (0-3) /hpf Ur Squamous Epith Cells None seen (Few) /hpf Urine Bacteria 4+ H /hpf Urine Casts 0-2 Salicylates < 1.0 L (2-20) mg/dL Urine Opiates Screen Positive A (Negative) Urine Methadone Screen Negative (Negative) Acetaminophen < 10 L (10-30) ug/mL Ur Barbiturates Screen Positive A (Negative) Gabapentin Pending Ur Phencyclidine Scrn Negative (Negative) Ur Amphetamine Screen Negative (Negative) U Benzodiazepines Scrn Negative (Negative) Urine Cocaine Screen Negative (Negative) U Cannabinoids Screen Negative (Negative) Ethyl Alcohol < 10 (<10) mg/dL SARS-CoV-2 RNA (RT-PCR) Negative (Negative) 06/13/25 06/13/25 06/14/25 Range/Units 03:12 07:04 03:51 WBC 5.5 (4.5-10.0) K/mm3 RBC 4.17 L (4.2-5.4) M/mm3 Hgb 14.5 (12.0-15.0) g/dL Hct 44.1 (37.0-47.0) % MCV 105.8 H (80-100) fl MCH 34.8 H (26-34) pg MCHC 32.9 (32-36) g/dl RDW 14.0 (11.5-14.5) % Plt Count 272 (150-375) k/mm3 MPV 9.7 (7.4-10.4) fl Immature Gran % (Auto) 0.2 (0-0.5) % Neut % (Auto) 51.7 (45.5-73.1) % Lymph % (Auto) 32.3 (18.3-44.2) % [place] % (Auto) 13.0 H (2.6-8.5) % Eos % (Auto) 2.3 (0-4.4) % Baso % (Auto) 0.5 (0.2-1.2) % Lymph # (Auto) 1.79 (0.9-3.2) K/mm3 [place] # (Auto) 0.7 H (0.1-0.6) K/mm3 Eos # (Auto) 0.1 (0-0.3) K/mm3 Baso # (Auto) 0.0 (0.0-0.1) K/mm3 Abs Immat Gran (auto) 0.01 (0.00-0.031) K/mm3 Absolute Neuts (auto) 2.9 (1.3-6.7) K/mm3 Absolute Nucleated RBC 0.000 (0.0-0.012) K/mm3 Nucleated RBC % 0.0 (0.0-0.2) % PT (11.1-14.7) Seconds INR APTT (22.3-36.8) Seconds Sodium 139 (137-145) mmol/L Potassium 2.9 L (3.4-5.0) mmol/L Chloride 106 (98-107) mmol/L Carbon Dioxide 25 (22-30) mmol/L Anion Gap 8 (4-12) mmol/L BUN 10 (7-17) mg/dL Creatinine 0.55 L (0.7-1.0) mg/dL Estim Creat Clear Calc 81 ml/min Estimated GFR > 60 (59 - ) Glucose 114 H (65-110) mg/dL Lactic Acid (0.7-2.0) mmol/L Calcium 9.6 (8.4-10.2) mg/dL Phosphorus (2.5-4.5) mg/dL Magnesium 2.2 (1.6-2.3) mg/dL Total Bilirubin 1.2 (0.2-1.3) mg/dL AST 52 H (14-36) U/L ALT 35 (6-35) U/L Alkaline Phosphatase 157 H (38-126) U/L Ammonia 40 H 23 Troponin I (0.000-0.034) ng/mL Total Protein 9.4 H (6.3-8.2) g/dL Albumin 4.4 (3.5-5.1) g/dL TSH (0.465-4.680) uIU/mL Urine Color (Yellow) Urine Appearance (Clear) Urine pH (5.0-9.0) Ur Specific [place] (1.001-1.035) Urine Protein (Negative) mg/dL Urine Glucose (UA) (Negative) mg/dL Urine Ketones (Negative) mg/dL Ur Blood (Man) (Negative) Urine Nitrate (Negative) Urine Bilirubin (Negative) Urine Urobilinogen (<2.0) mg/dL Leukocyte Esterase Rfl (Negative) ROCHELLE/UL Urine RBC (0-2) /hpf Urine WBC (0-3) /hpf Ur Squamous Epith Cells (Few) /hpf Urine Bacteria /hpf Urine Casts Salicylates (2-20) mg/dL Urine Opiates Screen (Negative) Urine Methadone Screen (Negative) Acetaminophen < 10 L < 10 L (10-30) ug/mL Ur Barbiturates Screen (Negative) Gabapentin Ur Phencyclidine Scrn (Negative) Ur Amphetamine Screen (Negative) U Benzodiazepines Scrn (Negative) Urine Cocaine Screen (Negative) U Cannabinoids Screen (Negative) Ethyl Alcohol (<10) mg/dL SARS-CoV-2 RNA (RT-PCR) (Negative) Imaging Data Radiologist's impression: CT head stat rad: No intracranial hemorrhage. No acute infarct. No midline shift. No hydrocephalus Discharge Plan Discharge Clinical Impression: Hypokalemia, Narcotic overdose, UTI (urinary tract infection), Altered mental status Patient Disposition: Still a Patient Condition: Stable Time of Disposition: 08:09
[2025-06-12] MEDS: diazePAM INJ (*CRX) 10 MG/2 ML SYRINGE 5 MG IM (22:54)
[2025-06-12 22:55] VITALS: BP 99/65; PULSE 91; RESP 18; O2SAT 99
[2025-06-12 22:58] VITALS: BP 99/65; PULSE 91; RESP 14; O2SAT 100
[2025-06-12 23:21] VITALS: PULSE 86; RESP 15
[2025-06-12 23:23] VITALS: BP 128/102; PULSE 84; RESP 17; O2SAT 97
[2025-06-12 23:25] VITALS: BP 133/106; PULSE 84; PULSE 90; RESP 14; RESP 15; TEMP 36.8; O2SAT 98; O2SAT 99
[2025-06-13] VITALS (18 sets, daily range): BP systolic 122–150; BP diastolic 71–101; PULSE 77–108; RESP 15–24; TEMP 36.6–37.2; O2SAT 92–100; BMI 25.8
--- NOTE | 2025-06-13 00:10 | PC.NURSE ---
Per pt request, Nildred (mother) updated on plan of care.
[2025-06-13 00:11] LABS: Hematocrit 42.2 % (37.0-47.0); Hemoglobin 13.8 g/dL (12.0-15.0); Immature Granulocyte Percent A 0.4 % (0-0.5); Lymphocytes Absolute Auto 2.07 K/mm3 (0.9-3.2); Mean Corpuscular HGB Conc 32.7 g/dl (32-36); Mean Corpuscular Hemoglobin 34.1 pg (26-34); Mean Corpuscular Volume 104.2 fl (80-100); Nucleated Red Blood Cells Absolute Auto 0.000 K/mm3 (0.0-0.012); Nucleated Red Blood Cells Perc 0.0 % (0.0-0.2); Platelet Count Result 283 k/mm3 (150-375); Red Blood Count 4.05 M/mm3 (4.2-5.4); White Blood Count 7.8 K/mm3 (4.5-10.0)
[2025-06-13 00:31] LABS: Alanine Aminotransferase 42 U/L (6-35); Albumin Level 4.3 g/dL (3.5-5.1); Alkaline Phosphatase 154 U/L (38-126); Anion Gap 8 mmol/L (4-12); Aspartate Amino Transferase 112 U/L (14-36); Bilirubin,Total 1.5 mg/dL (0.2-1.3); Blood Urea Nitrogen 13 mg/dL (7-17); Calcium 9.2 mg/dL (8.4-10.2); Carbon Dioxide 23 mmol/L (22-30); Chloride 108 mmol/L (98-107); Estimated CRCL calculation 84 ml/min; Estimated Glomerular Filt Rate > 60; Glucose 98 mg/dL (65-110); Magnesium 2.0 mg/dL (1.6-2.3); Potassium 3.2 mmol/L (3.4-5.0); Sodium 139 mmol/L (137-145); Total Protein 9.0 g/dL (6.3-8.2)
[2025-06-13 00:32] LABS: Acetaminophen < 10 ug/mL (10-30); INR 1.0; Partial Thromboplastin Time 28.4 Seconds (22.3-36.8); Prothrombin Time 12.9 Seconds (11.1-14.7); Salicylate < 1.0 mg/dL (2-20)
--- NOTE | 2025-06-13 00:39 | PC.NURSE ---
This RN spoke with Bessy from poison control. She verbally states on addition to the urine drug screen, salicylates, and alcohol levels, she states she wants a Tylenol level ordered four hours of ingestion time. She continues to say its more symptom care/control at this time.
[2025-06-13 00:47] LABS: Troponin I < 0.012 ng/mL (0.000-0.034)
--- NOTE | 2025-06-13 00:51 | PC.NURSE ---
Pt states she is allergic to Zyprexa made aware.
[2025-06-13] MEDS: LORazepam (*CRX) 1 MG TABLET 2 MG PO (00:53)
[2025-06-13 01:02] LABS: Thyroid Stimulating Hormone 0.714 uIU/mL (0.465-4.680)
[2025-06-13 01:03] LABS: SARS-CoV-2 RNA PCR Negative (Negative)
[2025-06-13] MEDS: POTASSIUM BICARBONATE 25 MEQ TABEF PO (01:03)
[2025-06-13 03:21] LABS: Add Urine Microscopic? YES; Appearance Urine Cloudy (Clear); Glucose Urine UA Negative (Negative); Leukocyte Esterase Ur 2+ LEU/UL (Negative); Nitrate Urine Positive (Negative); Non Pathogenic Casts 0-2; Specific Grav Ur 1.020 (1.001-1.035)
[2025-06-13 03:45] LABS: Acetaminophen < 10 ug/mL (10-30); Ammonia 40 umol/L (9-30)
[2025-06-13 04:05] LABS: Cannabinoid Screen Urine Negative (Negative)
--- NOTE | 2025-06-13 05:10 | PC.NURSE ---
Pt taken to CT by this RN
--- NOTE | 2025-06-13 06:47 | PC.NURSE ---
Michaela from poison control updated on plan of care by this RN.
[2025-06-13 07:20] LABS: Acetaminophen < 10 ug/mL (10-30)
[2025-06-13] MEDS: cefTRIAXone 1 GM in SODIUM CHLORIDE 0.9% IV 50 ML 100 ML IVPB (07:43)
--- NOTE | 2025-06-13 08:32 | PC.NURSE ---
Meal tray ordered for pt
--- NOTE | 2025-06-13 12:52 | P.HP_ITS ---
H&P: HPI History of Present Illness Date/Time: 06/13/25 12:52 Chief Complaint: Drug overdose Narrative: this is a 59-year-old female who presents to the ER with possible drug overdose. EMS was called as requested by police department. Regarding tube them patient had argument with her mother then she locked herself in her room. She would not come out. Mother was yelling at her through the door. police was called and assisted getting door open finding the patient alert to only name and slow to respond. EMS was then called. It they found multiple pill bottles filled on 06/11/2025 with missing pills. Hydrocodone was filled with 80 pills and only 37 pills were left. Ninety S sitter min of an and caffeine pills were missing. Patient denied she was trying to hurt herself and denied taking the pills stating her brother took the pills from her. Patient's brother is reported to be . Patient has multiple history of suicide attempts and abuse of prescription pills. patient's vitals were reported to be stable throughout the transport. She was initially refusing to go to the hospital. In the ED she was found to be agitated Argumentative and uncooperative. In the ED her vitals were stable. She was however agitated and uncooperative and received a dose of diazepam 5 mg IM. Laboratory data revealed WBC of 7.8 hemoglobin of 13.8 platelet count of 283. Sodium 139 potassium 3.2 chloride 108 bicarbonate 23 BUN 13 creatinine 0.6 blood glucose of 98. LFTs were mildly elevated with total bilirubin of 1.5 AST 112 ALT 42 alkaline phosphatase of 154. Troponin was negative less than 0.012. TSH was normal at 0.714. Urinalysis was suggestive of UTI with urine WBC more than 100 with positive nitrate and leukocyte esterase. Salicylates level less than 1. Acetaminophen level less than 10 UDS was positive for opiates and barbiturates. COVID swab was negative ethyl alcohol less than 10. Ammonia level was 40. Repeat a stemming FN level was done x3 which remained negative less than 10. CT head stat read with no intracranial hemorrhage or acute infarct no midline shift and no hydrocephalus. Patient remained confused. Poison Control was contacted who recommended obtaining 4 hours acetaminophen level which remained negative. Patient will be admitted in this setting for further treatment. Review of Systems Review of Systems: - CONSTITUTIONAL: Denies weight loss, fever and chills. - HEENT: Denies changes in vision and he aring - RESPIRATORY: Denies SOB and cough. - CV: Denies palpitations and CP. - GI: Denies abdominal pain, nausea, vom iting and diarrhea. - : Denies dysuria and urinary frequen cy. - MSK: Denies myalgia and joint pain. - SKIN: Denies rash and pruritus. - NEUROLOGICAL: Denies headache and sync ope. - PSYCHIATRIC: Uncooperative with thi s questioning [facility] Past Medical History Medical History Bipolar mood disorder Methamphetamine use GERD (gastroesophageal reflux disease) Major depression with psychotic features Carpal tunnel syndrome of right wrist Carcinoma of right ureter SVT (supraventricular tachycardia) Hepatitis C Alcohol abuse Schizoaffective disorder [place] toxicity Due to overdose/suicide attempt Requiring temporary dialysis Tobacco dependence Chronic obstructive pulmonary disease Distal radial fracture December 2022 Ankle fracture, lateral malleolus, closed December 2022 Seizure Migraine Anxiety Suicide attempt Multiple hospitalizations for suicide attempt with history of cutting Surgical History Surgical History History of right salpingo-oophorectomy Due to ectopic Status post lumbar discectomy (~1999) L5-S1 Status post open reduction with internal fixation of fracture Cervical spine fracture History of ureterostomy History of kidney surgery H/O dilation and curettage H/O tubal ligation History of tonsillectomy H/O foot surgery 2021 X2 H/O: hysterectomy 2000 hysterectomy with left oophorectomy Family History Family History Father Alcoholism Grandparent Diabetes mellitus Hypertension Heart disease Mother Kidney disease Grandparent Alcoholism Social History Social History Social History: Surrogate medical decision maker: Landy Guidonilton, mother. Code status: Full code. Smoking packs per day: 1.5 Smoking cigarettes per day: 30.0 Years smoked: 45 Smoking pack-years: 67.50 Smoking status: Current every day smoker Tobacco type: cigarettes Alcohol intake: unknown Substance use: current Substance use type: opiates and painkillers Other substance usage details: Fioricet and Sunburst Last use: 01/30/2025 Lack of Transportation: No Lack of Food: Never True Current Housing: I Have Housing Concerned About Future Housing: No Difficulty Paying Gas/Electric Bills: No Difficulty Paying for Meds: No Currently Unemployed: No Education: High School Diploma/GED Difficulty w/ Childcare or Family Care: No Living arrangements: with family Additional living arrangements comments: Lives with mother in [place]. Occupation/Education: unemployed Additional occupation/education comments: Disabled. Spiritual care concerns: No Meds Home Medications and Allergies Home Medications ?Medication ?Instructions ?Recorded ?Confirmed ?Type prazosin 5 mg capsule 10 mg PO HS 04/18/22 5 History chlorpromazine 100 mg tablet 100 mg PO Q12H 03/27/23 1 History gabapentin 300 mg capsule 600 mg PO TID 05/25/2306/13 History fyphtnjyto-cguiyoosyiphk-npsxepbb 1 tablet PO Q8H PRN Headache 07/26/24 06/13/25 History 50 mg-325 mg-40 mg tablet benztropine 1 mg tablet 1 mg PO BID 01/31/25 5 History buspirone 30 mg tablet 30 mg PO Q12H 01/31/2506/13 History ondansetron 4 mg disintegrating 4 mg translingual TID PRN nausea 01/31/25 06/13/25 History tablet and vomiting sertraline 100 mg tablet 200 mg PO DAILY 01/31/2501/31 History cyclobenzaprine 10 mg tablet 10 mg PO Q12H 05/16/25 History hydrocodone 5 mg-acetaminophen 325 1 tablet PO Q8H 04/0206/13/25 History mg tablet cephalexin 500 mg capsule 500 mg PO Q8H 7 days #21 cap s 06/07/25 06/13/25 Rx Allergies Allergy/AdvReac Type Severity Reaction Status Date / Time grass pollen Allergy Intermediate Hives Verified 06/13/25 13:00 olanzapine (From Zyprexa) Allergy Unknown Swelling Verified 06/13/25 13:00 of Lip/Tongue/Throat amoxicillin (From Augmentin) Allergy Hives Verified 06/13/25 13:00 asenapine (From Saphris) Allergy Hives Verified 06/13/25 13:00 bacitracin (From Neosporin Allergy Rash Verified 06/13/25 13:00 ([id number])) clavulanic acid (From Allergy Hives Verified 06/13/25 13:00 Augmentin) erythromycin base Allergy Hives Verified 06/13/25 13:00 latex Allergy Rash Verified 06/13/25 13:00 neomycin (From Neosporin Allergy Rash Verified 06/13/25 13:00 ([id number])) polymyxin B (From Neosporin Allergy Rash Verified 06/13/25 13:00 ([id number])) risperidone (From Risperdal) Allergy Hives Verified 06/13/25 13:00 tramadol (From Ultram) Allergy Rash Verified 06/13/25 13:00 haloperidol (From Haldol) AdvReac Severe Swelling Verified 06/13/25 13:00 of Lip/Tongue/Throat ciprofloxacin AdvReac Vomiting Verified 06/13/25 13:00 ibuprofen AdvReac Vomiting Verified 06/13/25 13:00 Steriod AdvReac Agitated Uncoded 05/16/25 12:53 Vital Signs Vital Signs - 24 hr 06/12/25 22:39 06/12/25 22:39 06/12/25 22:39 Temperature 98 F Pulse Rate 88 Respiratory Rate 26 H 26 H Blood Pressure 117/79 Pulse Oximetry 99 99 Oxygen Delivery Room Air Room Air 06/12/25 22:55 06/12/25 22:58 06/12/25 23:21 Temperature Pulse Rate 91 91 86 Respiratory Rate 18 14 15 Blood Pressure 99/65 L 99/65 L Pulse Oximetry 99 100 Oxygen Delivery 06/12/25 23:23 06/12/25 23:25 06/12/25 23:25 Temperature 98.3 F Pulse Rate 84 90 84 Respiratory Rate 17 15 14 Blood Pressure 128/102 H 133/106 H 133/106 H Pulse Oximetry 97 99 98 Oxygen Delivery 06/13/25 01:46 06/13/25 05:30 06/13/25 06:15 Temperature Pulse Rate 88 82 77 Respiratory Rate 20 19 15 Blood Pressure 140/101 H 122/73 Pulse Oximetry Oxygen Delivery 06/13/25 07:08 06/13/25 08:13 06/13/25 08:24 Temperature Pulse Rate 85 90 93 Respiratory Rate 19 15 Blood Pressure 146/84 H 135/89 Pulse Oximetry 98 98 Oxygen Delivery 06/13/25 08:56 06/13/25 09:23 06/13/25 09:45 Temperature 98.4 F 97.9 F Pulse Rate 98 98 Respiratory Rate 18 15 Blood Pressure 138/94 H 143/84 H Pulse Oximetry 99 98 100 Oxygen Delivery Room Air 06/13/25 10:00 06/13/25 12:00 Temperature 98.3 F Pulse Rate 92 91 Respiratory Rate 24 H Blood Pressure 135/83 Pulse Oximetry 92 Oxygen Delivery Exam Narrative: GENERAL: chronically ill looking, in no acute distress. HEAD: Normocephalic, atraumatic. ENT: Nares clear, no rhinorrhea or epistaxis. Gross auditory acuity intact. NECK: Supple. No meningismus. CHEST: Speaking in full sentences. No respiratory distress. HEART: Regular rate and rhythm. . ABDOMEN: Soft, nondistended. No rigidity or guarding. Not peritoneal EXTREMITIES: Normal range of motion. No lower extremity edema. SKIN: Warm, dry, no rash. NEURO: No focal deficits. moving all extremities on cooperative with exam PSYCH: mildly agitated H&P: Results Labs Labs: Short CBC 06/12/25 Range/Units 23:57 WBC 7.8 (4.5-10.0) K/mm3 Hgb 13.8 (12.0-15.0) g/dL Hct 42.2 (37.0-47.0) % Plt Count 283 (150-375) k/mm3 BMP 06/12/25 23:57 Sodium 139 Potassium 3.2 L Chloride 108 H Carbon Dioxide 23 BUN 13 D Creatinine 0.60 L Glucose 98 Calcium 9.2 Cardiac Enzymes 06/12/25 Range/Units 23:57 Troponin I < 0.012 (0.000-0.034) ng/mL Liver Function 06/12/25 Range/Units 23:57 Total Bilirubin 1.5 H (0.2-1.3) mg/dL AST 112 H (14-36) U/L ALT 42 H (6-35) U/L Alkaline Phosphatase 154 H (38-126) U/L Albumin 4.3 (3.5-5.1) g/dL Urine 06/13/25 Range/Units 03:04 Urine Color Yellow (Yellow) Urine Appearance Cloudy H (Clear) Urine pH 5.5 (5.0-9.0) Ur Specific [place] 1.020 (1.001-1.035) Urine Protein 1+ H (Negative) mg/dL Urine Glucose (UA) Negative (Negative) mg/dL Assessment and Plan Assessment and plan (1) Schizoaffective disorder: Qualifiers: Schizoaffective disorder type: bipolar Qualified Code(s): F25.0 - Schizoaffective disorder, bipolar type Code(s): F25.9 - Schizoaffective disorder, unspecified Status: Acute (2) Suicide attempt: Code(s): T14.91XA - Suicide attempt, initial encounter Status: Acute 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 - Other psychoactive substance use, unspecified, uncomplicated Status: Acute (5) Transaminitis: Code(s): R74.01 - Elevation of levels of liver transaminase levels Status: Acute (6) UTI (urinary tract infection): Code(s): N39.0 - Urinary tract infection, site not specified Status: Acute (7) Altered mental status: Code(s): R41.82 - Altered mental status, unspecified Status: Acute Plan this is a 59-year-old female who presents to the ER with possible drug overdose. EMS was called as requested by police department. Regarding tube them patient had argument with her mother then she locked herself in her room. She would not come out. Mother was yelling at her through the door. police was called and assisted getting door open finding the patient alert to only name and slow to respond. EMS was then called. It they found multiple pill bottles filled on 06/11/2025 with missing pills. Hydrocodone was filled with 80 pills and only 37 pills were left. Ninety S sitter min of an and caffeine pills were missing. Patient denied she was trying to hurt herself and denied taking the pills stating her brother took the pills from her. Patient's brother is reported to be . Patient has multiple history of suicide attempts and abuse of prescription pills. patient's vitals were reported to be stable throughout the transport. She was initially refusing to go to the hospital. In the ED she was found to be agitated Argumentative and uncooperative. In the ED her vitals were stable. She was however agitated and uncooperative and received a dose of diazepam 5 mg IM. Laboratory data revealed WBC of 7.8 hemoglobin of 13.8 platelet count of 283. Sodium 139 potassium 3.2 chloride 108 bicarbonate 23 BUN 13 creatinine 0.6 blood glucose of 98. LFTs were mildly elevated with total bilirubin of 1.5 AST 112 ALT 42 alkaline phosphatase of 154. Troponin was negative less than 0.012. TSH was normal at 0.714. Urinalysis was suggestive of UTI with urine WBC more than 100 with positive nitrate and leukocyte esterase. Salicylates level less than 1. Acetaminophen level less than 10 UDS was positive for opiates and barbiturates. COVID swab was negative ethyl alcohol less than 10. Ammonia level was 40. Repeat a stemming FN level was done x3 which remained negative less than 10. CT head stat read with no intracranial hemorrhage or acute infarct no midline shift and no hydrocephalus. Patient remained confused. Poison Control was contacted who recommended obtaining 4 hours acetaminophen level which remained negative. Patient will be admitted in this setting for further treatment. Drug overdose possible suicide attempt will continue 1 on 1 observation Possible Tylenol overdose however Tylenol level is normal repeat after 4 hours still within normal limit. History of similar suicide attempts in the past Encephalopathy ammonia mildly high add lactulose. CT head negative UTI continue ceftriaxone Rich drug abuser Schizoaffective disorder resume home medication DVT prophylaxis SCDs Code status full code Hospitalist [facility] Advance Care Plan I have confirmed that the patient's Advanced Care Plan is present, code status is documented, or surrogate decision maker is listed in patient medical record.: Yes Medication Reconciliation I have utilized all available resources to obtain, update and review the patients current medications (includes all prescriptions, OTC, herbals, cannabis, and nutritional supplements).: Yes
--- NOTE | 2025-06-13 16:10 | PC.NURSE ---
RN went to assess patient and obtain a set of vitals. SpO2 measurement unable to obtain r/t patient refusal. RN tried multiple times to apply SpO2 monitor to patient hands and feet. Patient kicked at nurse and said fuck you leave me the fuck alone. In addition RN asked patient if she was having any pain and would like her gabapentin, patient responded with Go fuck yourself. RN proceeded to encourage and offer patient lactulose, educating that her ammonia level was high and that this medication has been indicated by her provider. Patient refused medications despite multiple offers. Patient stated fuck you and go away. RN to update MD and will continue to offer medications.
--- NOTE | 2025-06-13 17:22 | PC.NURSE ---
RN attempted to give patient her dinner. Patient continued to yell at RN fuck you I don't need you fuck you bitch get the fuck out of my room. RN offered to sit patient up so she could have a meal patient responded with don't touch me bitch. RN will continue to monitor.
[2025-06-13] MEDS: LACTULOSE 20 GM/30 ML UDC PO (18:52)
[2025-06-13] MEDS: ACETAMINOPHEN/BUTALBITAL/CAFFEINE 325-50-40 MG TABLET (FIORICET) 1 TAB PO (21:00)
[2025-06-13] MEDS: CYCLOBENZAPRINE HCL 10 MG TABLET PO (21:01)
--- NOTE | 2025-06-13 21:09 | PC.NURSE ---
Patient denies suicidal ideation or suicide attempt this admit. Admits she has attempted suicide in the past. States she would only attempt suicide if her mom -would wrap a bag around her neck.
[2025-06-14] VITALS (15 sets, daily range): BP systolic 116–145; BP diastolic 62–98; PULSE 69–89; RESP 13–20; TEMP 36.6–37; O2SAT 94–100; BMI 25.8
--- NOTE | 2025-06-14 03:18 | PC.NURSE ---
0300 Patient woke up yelling calling patient drug safety associate (PSC) gallo, yelling she needed to use commode, threatening to pee on floor, and telling PSC to leave the room despite PSC attempting to help patient to the commode. This nurse entered room, was also called melissach and other degrading terms but able to get patient on commode. After voiding, patient sitting on side of bed and started to yell at staff again, refusing to put heart monitor she pulled off back on and threatening to hit staff or kick in head. Patient placed in restraints at this time and physically calm though continues to sling insulting comments at staff.
[2025-06-14 03:59] LABS: Hematocrit 44.1 % (37.0-47.0); Hemoglobin 14.5 g/dL (12.0-15.0); Immature Granulocyte Percent A 0.2 % (0-0.5); Lymphocytes Absolute Auto 1.79 K/mm3 (0.9-3.2); Mean Corpuscular HGB Conc 32.9 g/dl (32-36); Mean Corpuscular Hemoglobin 34.8 pg (26-34); Mean Corpuscular Volume 105.8 fl (80-100); Nucleated Red Blood Cells Absolute Auto 0.000 K/mm3 (0.0-0.012); Nucleated Red Blood Cells Perc 0.0 % (0.0-0.2); Platelet Count Result 272 k/mm3 (150-375); Red Blood Count 4.17 M/mm3 (4.2-5.4); White Blood Count 5.5 K/mm3 (4.5-10.0)
[2025-06-14 04:11] LABS: Alanine Aminotransferase 35 U/L (6-35); Albumin Level 4.4 g/dL (3.5-5.1); Alkaline Phosphatase 157 U/L (38-126); Ammonia 23 umol/L (9-30); Anion Gap 8 mmol/L (4-12); Aspartate Amino Transferase 52 U/L (14-36); Bilirubin,Total 1.2 mg/dL (0.2-1.3); Blood Urea Nitrogen 10 mg/dL (7-17); Calcium 9.6 mg/dL (8.4-10.2); Carbon Dioxide 25 mmol/L (22-30); Chloride 106 mmol/L (98-107); Estimated CRCL calculation 81 ml/min; Estimated Glomerular Filt Rate > 60; Glucose 114 mg/dL (65-110); Magnesium 2.2 mg/dL (1.6-2.3); Potassium 2.9 mmol/L (3.4-5.0); Sodium 139 mmol/L (137-145); Total Protein 9.4 g/dL (6.3-8.2)
[2025-06-14] MEDS: diazePAM INJ (*CRX) 10 MG/2 ML SYRINGE 5 MG IM ×2 (04:55→16:43)
--- NOTE | 2025-06-14 04:58 | PC.NURSE ---
Patient crying stating she feels anxious, pt is emotionally agitated. Valium given per request.
--- NOTE | 2025-06-14 07:23 | WPDCNPSYCH ---
Assessment and Plan Assessment and plan (1) Schizophrenia: Code(s): F20.9 - Schizophrenia, unspecified Status: Chronic (2) Suicide attempt: Code(s): T14.91XA - Suicide attempt, initial encounter Status: Acute Plan Patient presenting following suicide attempt by intentional drug overdose of unknown amount, psychiatric history of schizophrenia, anxiety, substance use. She follows outpatient with a provider at [facility], although she is unsure of name of provider. Denies current suicidal ideations, discussed inpatient admission and patient is currently agreeable to admission. Recommendations: -Home psychiatric medications have been resumed, continue. -Recommend inpatient behavioral health admission due to suicide attempt. -Continue sitter, suicide precautions. HPI Data of Consult Date/Time: 06/14/25 07:23 Requesting Physician: Brett Hillman MD Primary Care Provider: Edmundo Ramirez, Consult Narrative Narrative: Mahnaz Osegurea is a 59 year old female with a known psychiatric history of schizoaffective disorder, anxiety, substance use. She was brought into the ED on 06/12/25 via EMS following a suspected suicide attempt on unknown amount of prescribed medication, admitted to ICU for further monitoring. Per chart review, she has a chronic history of several suicide attempts and inpatient behavioral health admissions. Upon interview this morning, Bozena is labile and can become irritable at times. She is a poor historian and disorganized thought process. During interview this morning, she admitted to taking overdose of medication with intent to harm herself, although unsure of how much or which medications she took. Reportedly, this was triggered by an argument she had with her mother and relationship conflicts with her sister. She often discusses her dog Marivel, whom she does make threats of harming. Denies thoughts of wanting to harm other individuals. Denies current suicidal ideation, however appears to be very guarded and tearful while answering this question. UDT on admission was positive for barbiturates and opioids, notable the patient admits to infrequent methamphetamine use since the 1970s, last time being about a month ago per patient. She denies psychosis today during exam, however is observed often turning her head to look at something that is not there, appears slightly paranoid. Review of Systems Psychiatric: Psychiatric: Reports irritability, Reports mood swings and Reports paranoia PMFSH Past Medical History Medical History Bipolar mood disorder Methamphetamine use GERD (gastroesophageal reflux disease) Major depression with psychotic features Carpal tunnel syndrome of right wrist Carcinoma of right ureter SVT (supraventricular tachycardia) Hepatitis C Alcohol abuse Schizoaffective disorder [place] toxicity Due to overdose/suicide attempt Requiring temporary dialysis Tobacco dependence Chronic obstructive pulmonary disease Distal radial fracture December 2022 Ankle fracture, lateral malleolus, closed December 2022 Seizure Migraine Anxiety Suicide attempt Multiple hospitalizations for suicide attempt with history of cutting Surgical History Surgical History History of right salpingo-oophorectomy Due to ectopic Status post lumbar discectomy (~1999) L5-S1 Status post open reduction with internal fixation of fracture Cervical spine fracture History of ureterostomy History of kidney surgery H/O dilation and curettage H/O tubal ligation History of tonsillectomy H/O foot surgery 2021 X2 H/O: hysterectomy 2000 hysterectomy with left oophorectomy Family History Family History Father Alcoholism Grandparent Diabetes mellitus Hypertension Heart disease Mother Kidney disease Grandparent Alcoholism Social History Social History Social History: Surrogate medical decision maker: Lanyd Guidonilton, mother. Code status: Full code. Smoking packs per day: 1.5 Smoking cigarettes per day: 30.0 Years smoked: 45 Smoking pack-years: 67.50 Smoking status: Current every day smoker Tobacco type: cigarettes Alcohol intake: unknown Substance use: current Substance use type: opiates and painkillers Other substance usage details: Fioricet and [place] Last use: 01/30/2025 Lack of Transportation: No Lack of Food: Never True Current Housing: I Have Housing Concerned About Future Housing: No Difficulty Paying Gas/Electric Bills: No Difficulty Paying for Meds: No Currently Unemployed: No Education: High School Diploma/GED Difficulty w/ Childcare or Family Care: No Living arrangements: with family Additional living arrangements comments: Lives with mother in [place]. Occupation/Education: unemployed Additional occupation/education comments: Disabled. Spiritual care concerns: No Meds Home Medications and Allergies Home Medications ?Medication ?Instructions ?Recorded ?Confirmed ?Type prazosin 5 mg capsule 10 mg PO HS 04/18/22 06/13/25 History chlorpromazine 100 mg tablet 100 mg PO Q12H 03/27/23 06/13/25 History gabapentin 300 mg capsule 600 mg PO TID 05/25/23 06/13/25 History uldmwguqow-ezyaomdixeeja-xlyfdeaw 1 tablet PO Q8H PRN Headache 07/26/24 06/13/25 History 50 mg-325 mg-40 mg tablet benztropine 1 mg tablet 1 mg PO BID 01/31/25 06/13/25 History buspirone 30 mg tablet 30 mg PO Q12H 01/31/25 06/13/25 History ondansetron 4 mg disintegrating 4 mg translingual TID PRN nausea 01/31/25 06/13/25 History tablet and vomiting sertraline 100 mg tablet 200 mg PO DAILY 01/31/25 06/13/25 History cyclobenzaprine 10 mg tablet 10 mg PO Q12H 05/16/25 06/13/25 History hydrocodone 5 mg-acetaminophen 325 1 tablet PO Q8H 05/16/25 06/13/25 History mg tablet cephalexin 500 mg capsule 500 mg PO Q8H 7 days #21 caps 06/07/25 06/13/25 Rx Allergies Allergy/AdvReac Type Severity Reaction Status Date / Time grass pollen Allergy Intermediate Hives Verified 06/13/25 13:00 olanzapine (From Zyprexa) Allergy Unknown Swelling Verified 06/13/25 13:00 of Lip/Tongue/Throat amoxicillin (From Augmentin) Allergy Hives Verified 06/13/25 13:00 asenapine (From Saphris) Allergy Hives Verified 06/13/25 13:00 bacitracin (From Neosporin Allergy Rash Verified 06/13/25 13:00 ([id number])) clavulanic acid (From Allergy Hives Verified 06/13/25 13:00 Augmentin) erythromycin base Allergy Hives Verified 06/13/25 13:00 latex Allergy Rash Verified 06/13/25 13:00 neomycin (From Neosporin Allergy Rash Verified 06/13/25 13:00 ([id number])) polymyxin B (From Neosporin Allergy Rash Verified 06/13/25 13:00 ([id number])) risperidone (From Risperdal) Allergy Hives Verified 06/13/25 13:00 tramadol (From Ultram) Allergy Rash Verified 06/13/25 13:00 haloperidol (From Haldol) AdvReac Severe Swelling Verified 06/13/25 13:00 of Lip/Tongue/Throat ciprofloxacin AdvReac Vomiting Verified 06/13/25 13:00 ibuprofen AdvReac Vomiting Verified 06/13/25 13:00 Steriod AdvReac Agitated Uncoded 05/16/25 12:53 Vital Signs Vital Signs - 24 hr 06/13/25 08:13 06/13/25 08:24 06/13/25 08:56 Temperature 98.4 F Pulse Rate 90 93 98 Respiratory Rate 15 18 Blood Pressure 135/89 138/94 H Pulse Oximetry 98 99 Oxygen Delivery 06/13/25 09:23 06/13/25 09:45 06/13/25 10:00 Temperature 97.9 F Pulse Rate 98 92 Respiratory Rate 15 Blood Pressure 143/84 H Pulse Oximetry 98 100 Oxygen Delivery Room Air 06/13/25 12:00 06/13/25 12:00 06/13/25 14:00 Temperature 98.3 F Pulse Rate 91 108 H 79 Respiratory Rate 24 H Blood Pressure 135/83 Pulse Oximetry 92 Oxygen Delivery 06/13/25 16:00 06/13/25 16:00 06/13/25 16:00 Temperature 98.6 F Pulse Rate 82 85 Respiratory Rate 18 Blood Pressure 130/84 Pulse Oximetry Oxygen Delivery Room Air 06/13/25 18:00 06/13/25 19:30 06/13/25 19:32 Temperature 99.0 F Pulse Rate 83 91 Respiratory Rate 18 Blood Pressure 150/71 H Pulse Oximetry 98 98 Oxygen Delivery Room Air 06/13/25 20:00 06/13/25 22:00 06/14/25 00:00 Temperature Pulse Rate 85 83 69 Respiratory Rate 16 Blood Pressure 128/62 Pulse Oximetry Oxygen Delivery 06/14/25 00:00 06/14/25 00:00 06/14/25 00:00 Temperature Pulse Rate 70 73 Respiratory Rate 18 Blood Pressure 128/65 Pulse Oximetry 99 99 Oxygen Delivery Room Air 06/14/25 02:00 06/14/25 02:00 06/14/25 04:00 Temperature Pulse Rate 72 74 Respiratory Rate 15 15 Blood Pressure 125/80 Pulse Oximetry 100 Oxygen Delivery Room Air 06/14/25 04:00 06/14/25 04:00 06/14/25 05:02 Temperature 98.6 F Pulse Rate 74 76 82 Respiratory Rate 15 15 Blood Pressure 116/74 135/86 Pulse Oximetry 100 98 Oxygen Delivery 06/14/25 05:18 06/14/25 05:55 06/14/25 06:00 Temperature Pulse Rate 79 76 81 Respiratory Rate 18 13 Blood Pressure 126/88 125/83 Pulse Oximetry 100 97 Oxygen Delivery 06/14/25 06:04 Temperature Pulse Rate 74 Respiratory Rate 20 Blood Pressure 125/84 Pulse Oximetry 99 Oxygen Delivery Exam Psych: Appearance: disheveled Speech and movement: Slurred speech present Affect: Labile affect present Attitude: Guarded attititude/behavior present Thought process: Tangential thought process present Insight: Poor insight present (Psych) Judgement: Poor judgement present (Psych) Results Labs 06/14/25 03:51 06/14/25 03:51 Labs: Short CBC 06/14/25 Range/Units 03:51 WBC 5.5 (4.5-10.0) K/mm3 Hgb 14.5 (12.0-15.0) g/dL Hct 44.1 (37.0-47.0) % Plt Count 272 (150-375) k/mm3 BMP 06/14/25 03:51 Sodium 139 Potassium 2.9 L Chloride 106 Carbon Dioxide 25 BUN 10 Creatinine 0.55 L Glucose 114 H Calcium 9.6 Liver Function 06/14/25 Range/Units 03:51 Total Bilirubin 1.2 (0.2-1.3) mg/dL AST 52 H (14-36) U/L ALT 35 (6-35) U/L Alkaline Phosphatase 157 H (38-126) U/L Albumin 4.4 (3.5-5.1) g/dL
[2025-06-14] MEDS: POTASSIUM CHLORIDE 20 MEQ ER TABLET 40 MEQ PO ×3 (07:47→16:43)
[2025-06-14] MEDS: LACTULOSE 20 GM/30 ML UDC PO (07:49)
[2025-06-14] MEDS: ENOXAPARIN 40 MG/0.4 ML SYRINGE SUB-Q (07:50)
[2025-06-14] MEDS: cefTRIAXone 1 GM in SODIUM CHLORIDE 0.9% IV 50 ML 100 ML IVPB (07:50)
[2025-06-14] MEDS: SERTRALINE HCL 50 MG TABLET 200 MG PO (07:52)
[2025-06-14] MEDS: CYCLOBENZAPRINE HCL 10 MG TABLET PO ×2 (07:53→21:18)
[2025-06-14] MEDS: BENZTROPINE MESYLATE 1 MG TABLET PO (07:53)
--- NOTE | 2025-06-14 08:58 | P.PNIM_ITS ---
Progress Note: A&P Assessment and Plan (1) Schizoaffective disorder: Qualifiers: Schizoaffective disorder type: bipolar Qualified Code(s): F25.0 - Schizoaffective disorder, bipolar type Code(s): F25.9 - Schizoaffective disorder, unspecified Status: Acute (2) Suicide attempt: Code(s): T14.91XA - Suicide attempt, initial encounter Status: Acute 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 - Other psychoactive substance use, unspecified, uncomplicated Status: Acute (5) Transaminitis: Code(s): R74.01 - Elevation of levels of liver transaminase levels Status: Acute (6) UTI (urinary tract infection): Code(s): N39.0 - Urinary tract infection, site not specified Status: Acute (7) Altered mental status: Code(s): R41.82 - Altered mental status, unspecified Status: Acute (8) Electrolyte abnormality: Code(s): E87.8 - Other disorders of electrolyte and fluid balance, not elsewhere cla ssified Status: Resolved Plan this is a 59-year-old female who presents to the ER with possible drug overdose. EMS was called as requested by police department. Regarding tube them patient had argument with her mother then she locked herself in her room. She would not come out. Mother was yelling at her through the door. police was called and assisted getting door open finding the patient alert to only name and slow to respond. EMS was then called. It they found multiple pill bottles filled on 06/11/2025 with missing pills. Hydrocodone was filled with 80 pills and only 37 pills were left. Ninety S sitter min of an and caffeine pills were missing. Patient denied she was trying to hurt herself and denied taking the pills stating her brother took the pills from her. Patient's brother is reported to be . Patient has multiple history of suicide attempts and abuse of prescription pills. patient's vitals were reported to be stable throughout the transport. She was initially refusing to go to the hospital. In the ED she was found to be agitated Argumentative and uncooperative. In the ED her vitals were stable. She was however agitated and uncooperative and received a dose of diazepam 5 mg IM. Laboratory data revealed WBC of 7.8 hemoglobin of 13.8 platelet count of 283. Sodium 139 potassium 3.2 chloride 108 bicarbonate 23 BUN 13 creatinine 0.6 blood glucose of 98. LFTs were mildly elevated with total bilirubin of 1.5 AST 112 ALT 42 alkaline phosphatase of 154. Troponin was negative less than 0.012. TSH was normal at 0.714. Urinalysis was suggestive of UTI with urine WBC more than 100 with positive nitrate and leukocyte esterase. Salicylates level less than 1. Acetaminophen level less than 10 UDS was positive for opiates and barbiturates. COVID swab was negative ethyl alcohol less than 10. Ammonia level was 40. Repeat a stemming FN level was done x3 which remained negative less than 10. CT head stat read with no intracranial hemorrhage or acute infarct no midline shift and no hydrocephalus. Patient remained confused. Poison Control was contacted who recommended obtaining 4 hours acetaminophen level which remained negative. Patient will be admitted in this setting for further treatment. Drug overdose possible suicide attempt. Her mental status has improved over last 24 hours. Although she is still confused but that is likely close to patient's baseline. Patient was evaluated by Psychiatry who recommended continuing her home medications and inpatient psychiatry placement. I will discuss with care management coordinator regarding that. Meanwhile I willl continue 1 on 1 observation. Transfer to [facility] For her UTI she is on Rocephin. Cultures are pending. She is afebrile. History of similar suicide attempts in the past Encephalopathy ammonia mildly high and will continue lactulose. CT head negative UTI continue ceftriaxone Rich drug abuser Schizoaffective disorder resume home medication DVT prophylaxis start Lovenox Code status full code Potassium replacement ordered. Will DC physical restraints and monitor. Subjective Date/time seen: 06/14/25 Overnight events reviewed. Patient has a sitter bedside. Patient is still confused but much more improved and oriented this morning. She is a poor historian and unable to give a straight history. When I asked if she was having pain she replied that she has pain in her heart and would like a Band-Aid if that helps. She states she is hungry and thirsty and would like food and Pepsi. She is tearful during the history and exam. She is AO x3 and states that she needs her medications. She is worried that be the antibiotic that she is on may cause her and allergic reaction. She was also evaluated by Psychiatry this morning. Afebrile. Stable blood pressure. She is on room air. She has physical restraints. Full review of system is not obtainable due to patient's mental status. Review of Systems Review of Systems: All systems reviewed & are unremarkable except as noted in HPI and below (HPI) Exam Narrative: GENERAL: chronically ill looking, in no acute distress. HEAD: Normocephalic, atraumatic. ENT: Nares clear, no rhinorrhea or epistaxis. Gross auditory acuity intact. NECK: Supple. No meningismus. CHEST: Speaking in full sentences. No respiratory distress. HEART: Regular rate and rhythm. . ABDOMEN: Soft, nondistended. No rigidity or guarding. Not peritoneal EXTREMITIES: Normal range of motion. No lower extremity edema. SKIN: Warm, dry, no rash. NEURO: No focal deficits. Confused, moving all extremities, on cooperative with exam AO x3, follows commands with all 4 extremities, PSYCH: Come, tearful Objective Data Vital Signs Vital Signs: Vital Signs - 24 hr 06/13/25 09:23 06/13/25 09:45 06/13/25 10:00 Temperature 36.6 C Pulse Rate 98 92 Respiratory Rate 15 Blood Pressure 143/84 H Pulse Oximetry 98 100 Oxygen Delivery Room Air 06/13/25 12:00 06/13/25 12:00 06/13/25 14:00 Temperature 36.8 C Pulse Rate 91 108 H 79 Respiratory Rate 24 H Blood Pressure 135/83 Pulse Oximetry 92 Oxygen Delivery 06/13/25 16:00 06/13/25 16:00 06/13/25 16:00 Temperature 37.0 C Pulse Rate 82 85 Respiratory Rate 18 Blood Pressure 130/84 Pulse Oximetry Oxygen Delivery Room Air 06/13/25 18:00 06/13/25 19:30 06/13/25 19:32 Temperature 37.2 C Pulse Rate 83 91 Respiratory Rate 18 Blood Pressure 150/71 H Pulse Oximetry 98 98 Oxygen Delivery Room Air 06/13/25 20:00 06/13/25 22:00 06/14/25 00:00 Temperature Pulse Rate 85 83 69 Respiratory Rate 16 Blood Pressure 128/62 Pulse Oximetry Oxygen Delivery 06/14/25 00:00 06/14/25 00:00 06/14/25 00:00 Temperature Pulse Rate 70 73 Respiratory Rate 18 Blood Pressure 128/65 Pulse Oximetry 99 99 Oxygen Delivery Room Air 06/14/25 02:00 06/14/25 02:00 06/14/25 04:00 Temperature Pulse Rate 72 74 Respiratory Rate 15 15 Blood Pressure 125/80 Pulse Oximetry 100 Oxygen Delivery Room Air 06/14/25 04:00 06/14/25 04:00 06/14/25 05:02 Temperature 37.0 C Pulse Rate 74 76 82 Respiratory Rate 15 15 Blood Pressure 116/74 135/86 Pulse Oximetry 100 98 Oxygen Delivery 06/14/25 05:18 06/14/25 05:55 06/14/25 06:00 Temperature Pulse Rate 79 76 81 Respiratory Rate 18 13 Blood Pressure 126/88 125/83 Pulse Oximetry 100 97 Oxygen Delivery 06/14/25 06:04 06/14/25 07:40 Temperature 36.7 C Pulse Rate 74 74 Respiratory Rate 20 18 Blood Pressure 125/84 123/98 H Pulse Oximetry 99 99 Oxygen Delivery Intake/Output Intake/Output: Intake & Output 06/11/25 06/12/25 06/13/25 06/14/25 23:59 23:59 23:59 23:59 Intake Total 272 420 Output Total 100 600 Balance 172 -180 Meds/Results Medications: Active Medications Generic Name Dose Route Start Last Admin Trade Name Freq PRN Reason Stop Dose Admin Acetaminophen/Butalbital/Caffeine 1 tab 06/13/25 12:56 06/13/25 21:00 Acetaminophen/Butalbital/Caffeine 325-50-40 Mg Tablet (Fioricet) PO 1 tab Q8H PRN Administration Headache Benztropine Mesylate 1 mg 06/13/25 17:00 06/14/25 07:53 Benztropine Mesylate 1 Mg Tablet PO 1 mg BID BENEDICTO Administration Buspirone HCl 30 mg 06/13/25 21:00 06/14/25 07:53 Buspirone Hcl 10 Mg Tablet PO 30 mg Q12H BENEDICTO Administration Chlorpromazine HCl 100 mg 06/13/25 21:00 06/14/25 07:54 Chlorpromazine Hcl 25 Mg Tablet PO 100 mg Q12H BENEDICTO Administration Cyclobenzaprine HCl 10 mg 06/13/25 21:00 06/14/25 07:53 Cyclobenzaprine Hcl 10 Mg Tablet PO 10 mg Q12H BENEDICTO Administration Diazepam 5 mg 06/13/25 12:57 06/14/25 04:55 Diazepam Inj (*Crx) 10 Mg/2 Ml Syringe IM 5 mg Q6H PRN Administration Agitation Enoxaparin Sodium 40 mg 06/14/25 09:00 06/14/25 07:50 Enoxaparin 40 Mg/0.4 Ml Syringe SUB-Q 40 mg DAILY BENEDICTO Administration Gabapentin 600 mg 06/13/25 13:00 06/14/25 07:53 Gabapentin 300 Mg Capsule PO Not Given TID BENEDICTO Ceftriaxone Sodium 1 gm/ 50 mls @ 100 mls/hr 06/14/25 09:00 06/14/25 07:50 Sodium Chloride IVPB 100 mls/hr Q24H BENEDICTO Administration Lactulose 20 gm 06/13/25 14:55 06/14/25 07:49 Lactulose 20 Gm/30 Ml Udc PO 20 gm QAM BENEDICTO Administration Ondansetron HCl 4 mg 06/13/25 08:09 Ondansetron Inj 4 Mg/2 Ml Vial IV PUSH Q4H PRN Nausea Ondansetron HCl 4 mg 06/13/25 12:56 Ondansetron Hcl Odt 4 Mg Tablet BY MOUTH TID PRN Nausea And Vomiting Potassium Chloride 40 meq 06/14/25 07:30 06/14/25 07:47 Potassium Chloride 20 Meq Er Tablet PO 06/14/25 15:31 40 meq Q4H BENEDICTO Administration Prazosin HCl 10 mg 06/13/25 21:00 06/13/25 21:03 Prazosin Hcl 5 Mg Capsule PO Not Given HS [facility] Sertraline HCl 200 mg 06/14/25 09:00 06/14/25 07:52 Sertraline Hcl 50 Mg Tablet PO 200 mg DAILY BENEDICTO Administration Radiology Results: ITS Impressions Chest X-Ray 06/13/25 08:05 IMPRESSION: 1. No significant acute cardiopulmonary findings given portable technique. Consider PA and lateral films with deep inspiration when able. Head CT 06/13/25 08:22 IMPRESSION: 1. No acute intracranial findings. Labs Labs: Laboratory Results - last 24 hr 06/14/25 03:51 WBC 5.5 RBC 4.17 L Hgb 14.5 Hct 44.1 MCV 105.8 H MCH 34.8 H MCHC 32.9 RDW 14.0 Plt Count 272 MPV 9.7 Immature Gran % (Auto) 0.2 Neut % (Auto) 51.7 Lymph % (Auto) 32.3 [place] % (Auto) 13.0 H Eos % (Auto) 2.3 Baso % (Auto) 0.5 Lymph # (Auto) 1.79 [place] # (Auto) 0.7 H Eos # (Auto) 0.1 Baso # (Auto) 0.0 Abs Immat Gran (auto) 0.01 Absolute Neuts (auto) 2.9 Absolute Nucleated RBC 0.000 Nucleated RBC % 0.0 Sodium 139 Potassium 2.9 L Chloride 106 Carbon Dioxide 25 Anion Gap 8 BUN 10 Creatinine 0.55 L Estim Creat Clear Calc 81 Estimated GFR > 60 Glucose 114 H Calcium 9.6 Magnesium 2.2 Total Bilirubin 1.2 AST 52 H ALT 35 Alkaline Phosphatase 157 H Ammonia 23 Total Protein 9.4 H Albumin 4.4 Quality VTE Prophylaxis VTE prophylaxis: pharmacologic ordered
[2025-06-14] MEDS: NICOTINE (*PBKC) 14 MG PATCH 1 PATCH TRANSDERM (10:12)
--- NOTE | 2025-06-14 10:44 | PC.NURSE ---
Patient bladder scanned for complaints of retention and no urine output despite good oral fluid intake. Bladder scan revealed 300 mls of residual urine in bladder. Patient encouraged to void and offered bed pain and bedside commode depending on preference. Patient attempted to void without output. RN to continue to monitor urine status and follow up with MD.
[2025-06-14] MEDS: GABAPENTIN 300 MG CAPSULE 600 MG PO ×2 (13:03→16:43)
[2025-06-14] MEDS: PRAZOSIN HCL 5 MG CAPSULE 10 MG PO (21:18)
[2025-06-15] VITALS: BP 139/79; PULSE 83; PULSE 84; RESP 16; TEMP 36.8; O2SAT 96
[2025-06-15] MEDS: ACETAMINOPHEN/BUTALBITAL/CAFFEINE 325-50-40 MG TABLET (FIORICET) 1 TAB PO (00:39)
[2025-06-15 03:43] LABS: Hematocrit 38.2 % (37.0-47.0); Hemoglobin 12.4 g/dL (12.0-15.0); Mean Corpuscular HGB Conc 32.5 g/dl (32-36); Mean Corpuscular Hemoglobin 34.3 pg (26-34); Mean Corpuscular Volume 105.5 fl (80-100); Platelet Count Result 218 k/mm3 (150-375); Red Blood Count 3.62 M/mm3 (4.2-5.4); White Blood Count 4.5 K/mm3 (4.5-10.0)
[2025-06-15 04:00] VITALS: PULSE 69
[2025-06-15 04:15] LABS: Alanine Aminotransferase 32 U/L (6-35); Albumin Level 3.5 g/dL (3.5-5.1); Alkaline Phosphatase 110 U/L (38-126); Anion Gap 3 mmol/L (4-12); Aspartate Amino Transferase 44 U/L (14-36); Bilirubin,Total 0.3 mg/dL (0.2-1.3); Blood Urea Nitrogen 12 mg/dL (7-17); Calcium 8.9 mg/dL (8.4-10.2); Carbon Dioxide 25 mmol/L (22-30); Chloride 109 mmol/L (98-107); Estimated CRCL calculation 88 ml/min; Estimated Glomerular Filt Rate > 60; Glucose 112 mg/dL (65-110); Magnesium 1.9 mg/dL (1.6-2.3); Potassium 4.1 mmol/L (3.4-5.0); Sodium 137 mmol/L (137-145); Total Protein 7.5 g/dL (6.3-8.2)
--- NOTE | 2025-06-15 07:15 | P.CDI_ITS ---
CDI Query Clarification Request BMI: 26.0 Nutritional Diagnostic Statement: Please refer to the comprehensive nutrition assessment for further information. If you agree with diagnosis of Severe protein calorie malnutrition related to chronic loss of appetite as evidenced by weight loss 9%/1 month; intakes <75% needs >1 month; moderate fat loss, severe muscle wasting. Please specify severity if known: * Mild * Moderate * Severe * Other/Unknown <Libra Gan RN - Last Filed: 06/15/25 07:16> Provider Comments Severe protein calorie malnutrition <Brett Hillman MD - Last Filed: 06/15/25 16:13>
[2025-06-15 08:00] VITALS: BP 130/73; PULSE 80; PULSE 81; RESP 23; TEMP 36.6; O2SAT 97
[2025-06-15] MEDS: LACTULOSE 20 GM/30 ML UDC PO (09:30)
[2025-06-15] MEDS: BENZTROPINE MESYLATE 1 MG TABLET PO ×2 (09:30→16:04)
[2025-06-15] MEDS: NICOTINE (*PBKC) 14 MG PATCH 1 PATCH TRANSDERM (09:30)
[2025-06-15] MEDS: GABAPENTIN 300 MG CAPSULE 600 MG PO ×3 (09:30→16:06)
[2025-06-15] MEDS: CYCLOBENZAPRINE HCL 10 MG TABLET PO (09:31)
[2025-06-15] MEDS: SERTRALINE HCL 50 MG TABLET 200 MG PO (09:31)
[2025-06-15] MEDS: cefTRIAXone 1 GM in SODIUM CHLORIDE 0.9% IV 50 ML 100 ML IVPB (09:32)
[2025-06-15] MEDS: diazePAM INJ (*CRX) 10 MG/2 ML SYRINGE 5 MG IM (09:58)
[2025-06-15 10:26] VITALS: BP 124/80; PULSE 145
[2025-06-15] MEDS: METOPROLOL TARTRATE INJ 5 MG/5 ML VIAL IV PUSH (10:26)
[2025-06-15] MEDS: METOPROLOL TARTRATE INJ 5 MG/5 ML VIAL (11:24)
[2025-06-15] MEDS: diazePAM INJ (*CRX) 10 MG/2 ML SYRINGE 5 MG IV PUSH (11:29)
[2025-06-15 12:00] VITALS: PULSE 91
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
[2025-06-15 16:00] VITALS: BP 126/87; PULSE 86; RESP 22; TEMP 36.8; O2SAT 98
[2025-06-15] MEDS: KETOROLAC 30 MG/ML VIAL (*BKC) IV PUSH (16:04)
[2025-06-15 16:54] LABS: Influenza A QL RT-PCR Negative (Negative); Influenza B QL RT-PCR Negative (Negative); SARS-CoV-2 RNA PCR Negative (Negative)
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
== END 2025-06-15 18:21 | DRG 917 ==
LOC: ANHED 06-13 08:09 → ANHICU 06-13 08:41
PROVIDERS: Internal Medicine; Student in an Organized Health Care Education/Training Program; Admitting Provider Internal Medicine; Emergency Provider Student in an Organized Health Care Education/Training Program; PCP Internal Medicine; Visit Provider Internal Medicine
DX: T40.602A Poisoning by unspecified narcotics, intentional self-harm, initial encounter (principal); E43 Unspecified severe protein-calorie malnutrition; G92.8 Other toxic encephalopathy; N39.0 Urinary tract infection, site not specified; T14.91XA Suicide attempt, initial encounter; E87.6 Hypokalemia; J44.9 Chronic obstructive pulmonary disease, unspecified; K21.9 Gastro-esophageal reflux disease without esophagitis; R56.9 Unspecified convulsions; B19.20 Unspecified viral hepatitis C without hepatic coma; G43.909 Migraine, unspecified, not intractable, without status migrainosus; F19.90 Other psychoactive substance use, unspecified, uncomplicated; F41.9 Anxiety disorder, unspecified; F25.9 Schizoaffective disorder, unspecified; F31.9 Bipolar disorder, unspecified; F10.10 Alcohol abuse, uncomplicated; F17.210 Nicotine dependence, cigarettes, uncomplicated; Z20.822 Contact with and (suspected) exposure to COVID-19; Z11.52 Encounter for screening for COVID-19; Z85.54 Personal history of malignant neoplasm of ureter; Z68.26 Body mass index [BMI] 26.0-26.9, adult
CPT/HCPCS: 36415; 70450; 71045; 80053; 80143; 80171; 80179; 80307; 81001; 82077; 82140; 83605; 83735; 84100; 84443; 84484; 85025; 85027; 85610; 85730; 87086; 87186; 87635; 87636; 93005; 96365; 96372; 99285; A9270; G0378; J0616; J0696; J1650; J1885; J2359; J3360